=== PATIENT | male | born 1965 | race African-American/Black ===

== ENCOUNTER 2024-09-30 08:27 | Outpatient (AMB) | payer OTHER, SELFPAY ==
--- NOTE | 2024-09-30 08:34 | A.OFFVIS_ITS ---
Vital Signs 09/30/24 08:48 Height 6 ft 5 in Weight 276 lb BMI 32.7 Intake Visit Reasons: Left knee pain and giving way Intake Note: Stephane is a 58 year old male who presents with complaints of progressively worsening left knee pain and giving way. The patient did undergo right total knee replacement surgery [place] [address] Guillen. He reports mild to moderate discomfort in his right knee. He describes his left knee pain as sharp in nature. He did undergo left knee arthroscopic surgery approximately 10 years ago. He got fairly good relief from that surgery initially. He did re-injure his left knee approximately 1 year ago. Since that time his symptoms have gotten worse in spite of continued non operative treatments. He has had injections in the past. The most recent injection gave him minimal relief. He has also done physical therapy which aggravated his pain. He has failed the last 6 weeks of conservative treatment which has included Tylenol, anti- inflammatory medicines and physical therapy exercises. He states that his left knee will give out several times per day. Allergies No Known Allergies Allergy (Verified 09/30/24 08:48) Medication List - Last Reconciled 09/30/24 by Allen Soni MD acetaminophen 1,000 mg PO TID PRN acetaminophen 650 mg PO TID PRN atorvastatin 80 mg PO BEDTIME buprenorphine 10 mcg/hour 1 patch transdermal Q5D buprenorphine 5 mcg/hour 1 patch transdermal Q5D carboxymethylcellulose sodium 0.5% 1 drp ophthalmic (eye) QID cholecalciferol (vitamin D3) 50 mcg PO DAILY cyclobenzaprine 10 mg PO BID empagliflozin 25 mg PO DAILY gabapentin 600 mg PO TID hydrocodone-acetaminophen 5-325 mg 1 tab PO BID PRN insulin aspart U-100 (Novolog FlexPen U-100 Insulin aspart) 27 units subcut TID insulin glargine 46 units subcut BID lidocaine 5% 1 patch topical DAILY lisinopril 5 mg PO DAILY semaglutide 0.5 mg subcut QWEEK [facility] Surgical History (Updated 09/27/24 @ 12:11 by JEANETH Lopez) H/O knee surgery Physical Exam Vital Signs: BMI result Body Mass Index 32.7 Const Other: Well-nourished well-developed very friendly male awake alert and oriented x3 in no acute distress Extrem Other: Bilateral lower extremity examination shows good capillary refill, no skin lesions noted, normal sensation light touch Left knee examination shows a minimal effusion, mild crepitus with range of motion, tenderness along his medial joint line, positive Richard's test, no instability Right knee examination shows that the surgical incision is well healed, no erythema, range of motion from -5 degrees to 85 degrees, his patella tracks well Results Reviewed Results Reviewed: X-rays of the patient's right knee show a total knee arthroplasty in good position with no signs of loosening Standing full weight-bearing x-rays of the patient's left knee show mild diffuse degenerative changes, no acute bony abnormalities Assessment & Plan Assessment & Plan (1) Tear of medial meniscus of left knee: Code(s): S83.242A - Other tear of medial meniscus, current injury, left knee, initial encounter Category: Medical Plan Mr. Rivera presents with progressively worsening left knee pain and mechanical symptoms most likely due to a medial meniscus tear. Thus, I will send the patient for an MRI of his left knee for further evaluation. I will see him back once the MRI is completed to discuss the findings and treatment options. He will contact me prior to that time should his symptoms worsen in any way. I spent 22 minutes in reviewing the patient's records and imaging studies, seeing the patient and documenting in the medical record. Orders: Orders XR knee LT 3V 09/30/24 M25.562 - Pain in left knee MR knee LT wo con 09/30/24 S83.242A - Other tear of medial meniscus, current injury, left knee, initial encounter XR knee RT 3V 09/30/24 M25.561 - Pain in right knee Coding Level of Care Code New Pt Level 3 (42421) Complex EM visit Add On G2211 Diagnoses Tear of medial meniscus of left knee S83.242A
--- OUTSIDE RECORDS SUMMARY | 2024-09-30 08:34 | XMS_ITS | Continuity of Care Document ---
Author Name [facility] Organization [facility] Care Team Providers Care Appeals Board Referee Name Role Phone [facility] Unavailable Unavailable Problems Combined list of problems from Department of Defense and Veterans Affairs facilities. It does not include entries that were removed or entered in error. Problem Status Onset Date Problem Type Date of Resolution Comments Source Diabetes Mellitus Type II or unspecified Inactive 10/06/19 06 Condition 05/13/2017 [place] Allergic Rhinitis ([facility] [id number]) Active Condition [facility] [facility] Bilateral hearing loss Active Condition [place] Bilateral tinnitus Active Condition [place] Cervical radiculopathy Active Condition Sep 11, 2024 Entered By: CHANI RHODES Comment: 12/25/23 MRI [place] Degeneration of lumbar intervertebral disc Active Condition Sep 11, 2024 Entered By: CHANI RHODES Comment: 06/17/23 MRI lumbar spine [place] Depression Active Condition [place] Diabetic neuropathy Active Condition [place] Erectile dysfunction Active Condition [place] Fatty liver Active Condition Sep 11, 2024 Entered By: CHANI RHODES Comment: 03/08/24 US showed steatosis, fibrosis [place] History of surgery Active Condition May 13, 2017 Entered By: MYRNA LEAL Comment: s/p L foot surgery @2011 for collapsed archDe 2023 Entered By: CHANI RHODES Comment: lap terrell 1Dec 2023 Entered By: CHANI RHODES Comment: appendectomyDe 2023 Entered By: CHANI RHODES Comment: right and left knee meniscectomy - service connectedDec 2023 Entered By: CHANI RHODES Comment: right TKA - service connectedDe 2023 Entered By: CHANI RHODES Comment: urethral surgery for obstruction [place] HTN - Hypertension (SCT [id number]) Active Condition [place] Hyperlipidemia ([facility] 09582873) Active Condition [place] [facility] Impotence Active Condition [facility] Long-term current use of opiate analgesic drug Active Condition Sep 11, 2024 Entered By: CHNAI RHODES Comment: consent 11/15/2015[facility] 2023 Entered By: CHANI RHODES Comment: sees pain management [facility] Obesity Active Condition Sep 11 Entered By: CHANI RHODES Comment: 04/19/24 BMI 32 [facility] Osteoarthritis of multiple joints Active Condition Sep 11, 2024 Entered By: CHANI RHODES Comment[facility] Entered By: CHANI RHODES Comment: XR knees 04/27/24 [place] Type 2 diabetes mellitus Active Condition Nov 14, 2022 Entered By: SOM STANFORD Comment: See Diabetic PHARM D Note Dated Nov Entered By: CHANI RHODES Comment: 09/07/24 A1c 8.3 [place] Under care of multiple providers Active Condition Sep 11, 2024 Entered By: CHANI RHODES Comment: community PCP - Dr. Worrell [place] Vitamin D Deficiency ([facility] [id number]) Active Condition [place] : Rt Flank Paiin Inactive Condition 05/13/2017 Dec 07, 2009 Entered By: MARIA E CLAYTON RA Comment: Decreased Urinary Flow [place] Abdominal discomfort Inactive Condition 12/12/2023 [place] Acute diarrhoea Inactive Condition 12/12/2023 [facility] Blurred vision (ICD-9-CM 368.8) Inactive Condition 05/13/2017 [facility] Edema of lower leg Inactive Condition 09/11/2024 [place] Elevated blood pressure reading without diagnosis of hypertension Inactive Condition 05/13/2017 [facility] H: [phone] & C: [phone] Inactive Condition 05/13/2017 [facility] Onychomycosis of toenails Inactive Condition 09/11/2024 [facility] Other symptoms involving abdomen and pelvis Inactive Condition 05/13/2017 May 16, 2011 Entered By: SOM STANFORD Comment: Non-Descript ABD Pain May Entered By: SOM STANFORD Comment: CT, ABD MAY 16: No Acute Patholgy, +Fatty Liver,May 16, 2011 Entered By: SOM STANFORD Comment: +Benign Cysts Both Kidneys, +Colonic Diverticulae [place] Unemployment * Inactive Condition 05/13/2017 [facility] Diagnosis: ICD-10-CM M15.9 Polyosteoarthriti s, unspecified Active Diagnosis [facility] Diagnosis: ICD-10-CM E11.9 Type 2 diabetes mellitus without complications Active Diagnosis [facility] Diagnosis: ICD-10-CM M25.561 Pain in right knee Active Diagnosis [facility] Diagnosis: ICD-10-CM M54.50 Low back pain, unspecified Active Diagnosis [facility] Diagnosis: ICD-10-CM M25.569 Pain in unspecified knee Active Diagnosis [facility] Diagnosis: ICD-10-CM Z71.89 Other specified counseling Active Diagnosis [place] Diagnosis: ICD-10-CM G50.1 Atypical facial pain Active Diagnosis [place] Diagnosis: ICD-10-CM Z46.0 Encounter for fit/adjst of spectacles and contact lenses Active Diagnosis [facility] Diagnosis: ICD-10-CM H34.8110 Central retinal vein occls, right eye, with macular edema Active Diagnosis [facility] Diagnosis: ICD-10-CM M19.91 Primary osteoarthritis, unspecified site Active Diagnosis [facility] Diagnosis: ICD-10-CM R10.9 Unspecified abdominal pain [facility] Diagnosis: ICD-10-CM E78.5 Hyperlipidemia, unspecified Active Diagnosis [place] Diagnosis: ICD-10-CM I10 Essential (primary) hypertension Active Diagnosis [place] Diagnosis: ICD-10-CM M54.51 Vertebrogenic low back pain Active Diagnosis [place] Diagnosis: ICD-10-CM Z71.3 Dietary counseling and surveillance Active Diagnosis [place] Diagnosis: ICD-10-CM R11.0 Nausea Active Diagnosis [place] Medications Combined list of outpatient medications from Department of Defense and Veterans Affairs facilities.Medications provided include 1) outpatient medications from the last 15 months, and 2) patient-reported medications. Medication Details Route Status Patient Instructions Prescription Expires Prescription Number Last Dispense Date Ordering Provider Order Date Order Qty Source ACETAMINOPH EN 325MG TAB TAKE TWO TABLETS BY MOUTH THREE TIMES DAILY NEEDED FOR PAIN ORAL ACTIVE 08/20/2025 [id number] MARCK STANFORD WENCESLAO 2023 200 [place] ACETAMINOPH EN 500MG TAB TAKE TWO TABLETS BY MOUTH THREE TIMES DAILY NEEDED FOR PAIN ORAL ACTIVE 11/28/2024 [id number] VISHNUCA RMEN F 2023 200 [place] AMOXICILLIN TRIHYDRATE 500MG/CLAVU LANATE K 125MG TAB TAKE 1 TABLET BY MOUTH EVERY 12 HOURS WITH FOOD, FOR 10 DAYS ORAL 08/05/2024 [id number] 4 KI EATONKRISTEN LUC 2023 20 [place] ATORVASTATI N CA 80MG TAB TAKE ONE TABLET BY MOUTH AT BEDTIME FOR HIGH CHOLESTE ROL ORAL ACTIVE 11/28/2024 [id number] VISHNUCA RMEN F 2023 90 [place] BUPRENORPHI NE 10MCG/HR PATCH APPLY 1 PATCH TO SKIN EVERY 5 DAYS (REMOVE PATCH BEFORE APPLYING A NEW PATCH) TRANSD ERMAL DISCONT INUED BY PROVIDE R 02/27/2025 [id number] [facility] 2023 6 [facility] BUPRENORPHI NE 15MCG/HR PATCH APPLY 1 PATCH TO SKIN EVERY 5 DAYS (REMOVE PATCH BEFORE APPLYING A NEW PATCH) TRANSD ERMAL ACTIVE 03/27/2025 [id number] 4 [facility] 2023 6 [facility] BUPRENORPHI NE 5MCG/HR PATCH APPLY 1 PATCH TO SKIN EVERY 5 DAYS (REMOVE PATCH BEFORE APPLYING A NEW PATCH) TRANSD ERMAL DISCONT INUED BY PROVIDE R 09/22/2024 [id number] [facility] 2023 6 [facility] CARBOXYMETH YLCELLULOSE NA 0.5% SOLN,OPH INSTILL 1 DROP INTO EACH EYE FOUR TIMES A DAY FOR DRY EYE OPHTHA LMIC ACTIVE 05/01/2025 [id number] 4 CRISTIANO WELSH J 2023 45 [facility] CHOLECALCIF VINH 50MCG (2,000UNIT) TAB TAKE ONE TABLET BY MOUTH ONCE DAILY FOR VITAMIN SUPPLEME NTATION ORAL ACTIVE 12/15/2024 [id number] 4 SARA MARES RMEN F 2023 100 [place] CYCLOBENZAP RINE HCL 10MG TAB TAKE ONE TABLET BY MOUTH TWICE DAILY NEEDED FOR MUSCLE SPASM ORAL DISCONT INUED BY PROVIDE R 08/20/2025 [id number] 4 MARCK STANFORD 2023 60 [place] CYCLOBENZAP RINE HCL 10MG TAB TAKE ONE TABLET BY MOUTH AT BEDTIME NEEDED FOR MUSCLE SPASM ORAL 12/28/2023 [id number] 4 SARA MARES RMEN F 2023 30 [place] EMPAGLIFLOZ IN 25MG TAB TAKE ONE TABLET BY MOUTH ONCE DAILY ORAL ACTIVE 09/07/2025 [id number] Eli BECKBELA A 2023 30 [place] EMPAGLIFLOZ IN 25MG TAB TAKE ONE TABLET BY MOUTH ONCE DAILY ORAL DISCONT INUED 10/17/2024 [id number] 4 Eli BECKBELA A 2023 90 [place] EMPAGLIFLOZ IN 25MG TAB TAKE ONE TABLET BY MOUTH ONCE DAILY ORAL DISCONT INUED 10/07/2024 [id number] 4 Eli BECKA A 2023 60 [place] EMPAGLIFLOZ IN 25MG TAB TAKE ONE TABLET BY MOUTH ONCE DAILY ORAL DISCONT INUED 01/11/2024 [id number] 3 Eli BECKA A 2022 60 [place] GABAPENTIN 100MG CAP TAKE ONE CAPSULE BY MOUTH THREE TIMES A DAY FOR 7 DAYS, THEN TAKE TWO CAPSULES THREE TIMES A DAY FOR 7 DAYS, THEN TAKE THREE CAPSULES THREE TIMES A DAY FOR 16 DAYS ORAL 04/25/2024 [id number] 4 SABA CARL 2023 207 [facility] GABAPENTIN 100MG CAP TAKE ONE CAPSULE BY MOUTH EVERY MORNING AND TAKE TWO CAPSULES AT BEDTIME FOR NERVE PAIN ORAL 03/11/2024 [id number] 4 Gale RHODES 2023 270 [facility] [place] GABAPENTIN 300MG CAP TAKE TWO CAPSULES BY MOUTH THREE TIMES A DAY ORAL ACTIVE 08/28/2025 [id number] 5 [facility]24 540 [facility] GABAPENTIN 300MG CAP TAKE ONE CAPSULE BY MOUTH THREE TIMES A DAY FOR NERVE PAIN ORAL DISCONT INUED 08/13/2025 [id number] 4 [facility]23 270 [facility] GLUCOSE 4GM TAB,CHEW CHEW FOUR TABLETS BY MOUTH NEEDED FOR LOW BLOOD SUGAR ORAL ACTIVE 06/11/2025 [id number] ИРИНА ARAGON 2023 20 [facility] [place] HYDROCODONE 5MG/ACETAMI NOPHEN 325MG TAB TAKE 1 TABLET BY MOUTH TWICE DAILY NEEDED NEXT FILL 10/25 ORAL ACTIVE 10/24/2024 [id number] 4 [facility] 2023 60 [facility] HYDROCODONE 5MG/ACETAMI NOPHEN 325MG TAB TAKE 1 TABLET BY MOUTH TWICE DAILY NEEDED FOR PAIN ORAL 09/26/2024 [id number] 4 [facility] 2023 60 [facility] HYDROCODONE 5MG/ACETAMI NOPHEN 325MG TAB TAKE 1 TABLET BY MOUTH TWICE DAILY FOR PAIN ORAL 06/20/2024 [id number] 4 [facility]23 60 [facility] HYDROCODONE 5MG/ACETAMI NOPHEN 325MG TAB TAKE 1 TABLET BY MOUTH TWICE DAILY FOR PAIN (NEXT FILL 04/19/24) ORAL 04/21/2024 [id number] [facility] 2023 60 [facility] HYDROCODONE 5MG/ACETAMI NOPHEN 325MG TAB TAKE 1 TABLET BY MOUTH TWICE DAILY NEEDED FOR PAIN MAY USE UP TO 3 DAYS PER WEEK (NEXT FILL 03/09/24) ORAL 03/11/2024 [id number] [facility] 2023 24 [facility] INSULIN,ASP ART,HUMAN (EQV-NOVOLO G) 100 UNIT/ML,FLE XPEN,3ML INJECT 27 UNITS SUBCUTAN EOUSLY THREE TIMES A DAY BEFORE MEALS INJECT 15 MINUTES BEFORE MEALS IF MEAL SKIPPED SKIP THE DOSE SUBCUT ANEOUS ACTIVE 06/11/2025 [id number] 4 ИРИНА ARAGON 2023 10 [place] INSULIN,ASP ART,HUMAN (EQV-NOVOLO G) 100 UNIT/ML,FLE XPEN,3ML INJECT 25 UNITS SUBCUTAN EOUSLY THREE TIMES A DAY INJECT 15 MINUTES BEFORE MEALS IF MEAL SKIPPED SKIP THE DOSE SUBCUT ANEOUS DISCONT INUED (EDIT) 02/26/2025 [id number] Eli BECK 2023 [place] INSULIN,ASP ART,HUMAN (EQV-NOVOLO G) 100 UNIT/ML,FLE XPEN,3ML INJECT 25 UNITS SUBCUTAN EOUSLY BEFORE BREAKFAS T AND INJECT 25 UNITS BEFORE LUNCH AND INJECT 25 UNITS BEFORE SUPPER (SKIP DOSE IF MEAL IS SKIPPED) SUBCUT ANEOUS 01/11/2024 [id number] Eli BECK 2022 20 [place] INSULIN,GLA RGINE-YFGN 100UNIT/ML INJ PEN,3ML INJECT 46 UNITS SUBCUTAN EOUSLY TWICE DAILY SUBCUT ANEOUS ACTIVE 02/26/2025 [id number] Eli BECK 2023 10 [place] INSULIN,GLA RGINE-YFGN 100UNIT/ML INJ PEN,3ML INJECT 40 UNITS SUBCUTAN EOUSLY TWICE DAILY FOR DIABETES SUBCUT ANEOUS 02/14/2024 [id number] Eli BECK A 2022 20 [place] LIDOCAINE 5% PATCH APPLY 1 PATCH TOPICALL Y ONCE DAILY NEEDED (LEAVE PATCH ON FOR 12 HOURS, THEN REMOVE PATCH) TOPICA L ACTIVE 11/28/2024 [id number] SARA MARES RMEN F 2023 30 [place] LISINOPRIL 5MG TAB TAKE ONE TABLET BY MOUTH ONCE DAILY TO CONTROL BLOOD PRESSURE ORAL ACTIVE 06/04/2025 [id number] SARA MARES RMEN F 2023 90 [place] LISINOPRIL 5MG TAB TAKE ONE TABLET BY MOUTH ONCE DAILY TO CONTROL BLOOD PRESSURE ORAL DISCONT INUED 05/21/2024 [id number] 4 SARA MARES RMEN F 2022 90 [place] METFORMIN HCL 750MG 24HR TAB,SA TAKE ONE TABLET BY MOUTH ONCE DAILY ORAL ACTIVE 02/26/2025 [id number] Eli BECK A 2023 90 [place] METFORMIN HCL 750MG 24HR TAB,SA TAKE ONE TABLET BY MOUTH ONCE DAILY ORAL 02/14/2024 [id number] Eli BECKA A 2022 90 [place] SEMAGLUTIDE 0.25MG/0.37 5ML INJ,SOLN,PE N,3ML INJECT 0.5MG SUBCUTAN EOUSLY ONCE A WEEK FOR TYPE 2 DIABETES MELLITUS SUBCUT ANEOUS ACTIVE 08/06/2025 [id number] 4 Eli BECKA A 2023 1 [place] SEMAGLUTIDE 0.25MG/0.37 5ML INJ,SOLN,PE N,3ML INJECT 0.5MG SUBCUTAN EOUSLY ONCE A WEEK FOR TYPE 2 DIABETES MELLITUS SUBCUT ANEOUS DISCONT INUED 04/15/2025 [id number] Eli BECKA A 2023 1 [place] SEMAGLUTIDE 0.25MG/0.37 5ML INJ,SOLN,PE N,3ML INJECT 0.5MG SUBCUTAN EOUSLY ONCE A WEEK FOR TYPE 2 DIABETES MELLITUS SUBCUT ANEOUS DISCONT INUED BY PROVIDE R 11/04/2024 [id number] Eli BECK JANY A 2023 1 [place] SEMAGLUTIDE 0.25MG/0.37 5ML INJ,SOLN,PE N,3ML INJECT 0.25MG SUBCUTAN EOUSLY ONCE A WEEK FOR 2 WEEKS, THEN INJECT 0.5MG ONCE A WEEK SUBCUT ANEOUS DISCONT INUED BY PROVIDE R 11/16/2023 [id number] Eli BECK 2023 1 [place] SEMAGLUTIDE 1MG/0.75ML INJ,SOLN,PE N,3ML INJECT 1MG SUBCUTAN EOUSLY ONCE A WEEK FOR TYPE 2 DIABETES MELLITUS SUBCUT ANEOUS DISCONT INUED BY PROVIDE R 11/27/2024 [id number] Eli BECK 2023 1 [place] SEMAGLUTIDE 1MG/0.75ML INJ,SOLN,PE N,3ML INJECT 1MG SUBCUTAN EOUSLY ONCE A WEEK SUBCUT ANEOUS DISCONT INUED 03/28/2024 [id number] Eli BECKFrancisco J Francisco J 2022 2 [place] Immunizations Combined list of available immunizations from the Department of Defense and Veterans Affairs facilities. 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 INFLUENZA, SPLIT VIRUS, TRIVALENT, PF 2023 BIANCA COELLO LEFT DELTO ID [id number] 140 complet ed [place] INFLUENZA, INJECTABLE, QUADRIVALENT, PRESERVATIVE FREE 2021 BAUDILIO CONROY RIGHT DELTO ID [id number] 150 complet ed [place] ZOSTER RECOMBINANT 2 2021 BAUDILIO CONROY LEFT DELTO ID [id number] 187 complet ed [place] COVID-19 (MODERNA), MRNA, LNP-S, PF, 100 MCG/0.5ML DOSE OR 50 MCG/0.25ML DOSE 1 2021 207 complet ed MOD; [id number]; 2 [place] ZOSTER RECOMBINANT 1 2021 187 complet ed [place] INFLUENZA, INJECTABLE, QUADRIVALENT, PRESERVATIVE FREE 2020 150 complet ed Partner:Meka AVELAR.Admin istered by:[facility]. ([id number]).[facility]:[phone] 2.Address :[address] [place] [phone] [id number] [facility] INFLUENZA, INJECTABLE, QUADRIVALENT, PRESERVATIVE FREE 2019 150 complet ed [place] INFLUENZA, INJECTABLE, QUADRIVALENT, PRESERVATIVE FREE 2018 150 complet ed Site: Left Deltoid [place] INFLUENZA, SEASONAL, INJECTABLE 2017 141 complet ed Site: Left Deltoid [place] INFLUENZA, SEASONAL, INJECTABLE 2017 141 complet ed Site: Left Deltoid [place] INFLUENZA, HIGH DOSE SEASONAL 2015 135 complet ed [facility] FLU,3 YRS (HISTORICAL) 2015 88 complet ed [place] FLU,3 YRS (HISTORICAL) 2015 88 complet ed [facility] FLU,3 YRS (HISTORICAL) 2015 88 complet ed [place] PNEUMOCOCCAL POLYSACCHARID E PPV23 2015 33 complet ed [place] FLU,3 YRS (HISTORICAL) 2013 88 complet ed [place] FLU,3 YRS (HISTORICAL) 2012 88 complet ed Site: Left Deltoid [place] FLU,3 YRS (HISTORICAL) 2011 88 complet ed Site: Left Deltoid [place] FLU,3 YRS (HISTORICAL) 2011 88 complet ed [facility] FLU,3 YRS (HISTORICAL) 2010 88 complet ed [facility] FLU,3 YRS (HISTORICAL) 2010 88 complet ed Pt. got his vaccine at his employer. [facility] DTAP, UNSPECIFIED FORMULATION 2010 107 complet ed Site: Right Deltoid [place] FLU,3 YRS (HISTORICAL) 2009 88 complet ed had flu approx date [facility] Results Combined list of recent chemistry, hematology and other laboratory results from Department of Defense and Veterans Affairs, ranging from 15 months to all on record, depending upon the facility. Order Name Results Value Reference Range Date Interpretation Specimen Comments Source TSH THYROTROPI N [UNITS/VOL UME] IN SERUM OR PLASMA 1.86 u[IU]/mL 0.35 - 5.00 09/07 Specimen Type: SERUM No comment entered. Ordering Provider: ROLDAN RHODES Report Released Date/Time: Sep 06, 2024 01:20 PM Reporting Lab: [facility] [address] [facility] [address] Performing Lab: [address] [address] [place] PSA PROSTATE SPECIFIC AG [MASS/VOLU ME] IN SERUM OR PLASMA 0.33 ng/mL 0.00 - 4.00 09/07 Specimen Type: SERUM No comment entered. Ordering Provider: ROLDAN RHODES Report Released Date/Time: Sep 06, 2024 01:20 PM Reporting Lab: [facility] [address] [facility] [address] Performing Lab: [address] [address] [place] LIPID PANEL FASTING CHOLESTERO L [MASS/VOLU ME] IN SERUM OR PLASMA 131 mg/dL 09/07 Specimen Type: SERUM Comment: Hemolysis present analysis cannot be performed. Hemolysis present may falsly elevate Potassium Total and Direct Bili, Iron, AST, %Fe. Ordering Provider: ROLDAN RHODES Report Released Date/Time: Sep 06, 2024 01:20 PM Reporting Lab: [address] [address] Performing Lab: [address] [address] [place] LIPID PANEL FASTING TRIGLYCERI DE [MASS/VOLU ME] IN SERUM OR PLASMA 219 mg/dL 0 - 150 09/07 H Specimen Type: SERUM Comment: Hemolysis present analysis cannot be performed. Hemolysis present may falsly elevate Potassium Total and Direct Bili, Iron, AST, %Fe. Ordering Provider: ROLDAN RHODES Report Released Date/Time: Sep 06, 2024 01:20 PM Reporting Lab: [address] [address] Performing Lab: [address] [address] [place] LIPID PANEL FASTING CHOLESTERO L IN LDL [MASS/VOLU ME] IN SERUM OR PLASMA BY CALCULATIO N 55 mg/dL 0 - 129 09/07 Specimen Type: SERUM Comment: Hemolysis present analysis cannot be performed. Hemolysis present may falsly elevate Potassium Total and Direct Bili, Iron, AST, %Fe. Ordering Provider: ROLDAN RHODES Report Released Date/Time: Sep 06, 2024 01:20 PM Reporting Lab: [address] [address] Performing Lab: [address] [address] [place] LIPID PANEL FASTING CHOLESTERO L.TOTAL/CH OLESTEROL IN HDL [MASS RATIO] IN SERUM OR PLASMA 4.1 09/07 Specimen Type: SERUM Comment: Hemolysis present analysis cannot be performed. Hemolysis present may falsly elevate Potassium Total and Direct Bili, Iron, AST, %Fe. Ordering Provider: ROLDAN RHODES Report Released Date/Time: Sep 06, 2024 01:20 PM Reporting Lab: [address] [address] Performing Lab: [address] [address] [place] LIPID PANEL FASTING CHOLESTERO L IN HDL [MASS/VOLU ME] IN SERUM OR PLASMA 32 mg/dL 40 - 60 09/07 L Specimen Type: SERUM Comment: Hemolysis present analysis cannot be performed. Hemolysis present may falsly elevate Potassium Total and Direct Bili, Iron, AST, %Fe. Ordering Provider: ROLDAN RHODES Report Released Date/Time: Sep 06, 2024 01:20 PM Reporting Lab: [address] [address] Performing Lab: [address] [address] [employer] [place] HEMOGLOB IN A1C PANEL HEMOGLOBIN A1C/HEMOGL OBIN.TOTAL IN BLOOD BY HPLC 8.1 4.0 - 5.6 09/07 H Specimen Type: BLOOD Comment: Values obtained from A1C measurement s can vary. For atypical A1C assays, a reported value of 7.0 could actually be between 6.72 and 7.28 if measured by a reference method. A reported value of 9.0 could actually be between 8.73 and 9.27. Ref: http://www. ngsp.org/[place] Pdata.asp Ordering Provider: ROLDAN RHODES Report Released Date/Time: Sep 06, 2024 01:20 PM Reporting Lab: [address] [address] Performing Lab: [address] [address] [employer] [facility] BASIC METABOLI C PANEL (fasting ) UREA NITROGEN [MASS/VOLU ME] IN SERUM OR PLASMA 15 mg/dL 7 - 25 09/07 Specimen Type: SERUM Comment: Hemolysis present analysis cannot be performed. Hemolysis present may falsly elevate Potassium Total and Direct Bili, Iron, AST, %Fe. Ordering Provider: ROLDAN RHODES Report Released Date/Time: Sep 06, 2024 01:20 PM Reporting Lab: [address] [address] Performing Lab: [address] [address] [employer] [facility] BASIC METABOLI C PANEL (fasting ) GLUCOSE [MASS/VOLU ME] IN SERUM OR PLASMA 176 mg/dL 65 - 100 09/07 H Specimen Type: SERUM Comment: Hemolysis present analysis cannot be performed. Hemolysis present may falsly elevate Potassium Total and Direct Bili, Iron, AST, %Fe. Ordering Provider: ROLDAN RHODES Report Released Date/Time: Sep 06, 2024 01:20 PM Reporting Lab: [facility] [address] [facility] [address] Performing Lab: [facility] [address] [address] [place] BASIC METABOLI C PANEL (fasting ) SODIUM [MOLES/VOL UME] IN SERUM OR PLASMA 139 mmol/L 135 - 145 09/07 Specimen Type: SERUM Comment: Hemolysis present analysis cannot be performed. Hemolysis present may falsly elevate Potassium Total and Direct Bili, Iron, AST, %Fe. Ordering Provider: ROLDAN RHODES Report Released Date/Time: Sep 06, 2024 01:20 PM Reporting Lab: [facility] [address] [address] Performing Lab: [facility] [address] [address] [place] BASIC METABOLI C PANEL (fasting ) POTASSIUM [MOLES/VOL UME] IN SERUM OR PLASMA 4.4 mmol/L 3.5 - 5.0 09/07 Specimen Type: SERUM Comment: Hemolysis present analysis cannot be performed. Hemolysis present may falsly elevate Potassium Total and Direct Bili, Iron, AST, %Fe. Ordering Provider: ROLDAN RHODES Report Released Date/Time: Sep 06, 2024 01:20 PM Reporting Lab: [address] [address] Performing Lab: [address] [address] [place] BASIC METABOLI C PANEL (fasting ) CHLORIDE [MOLES/VOL UME] IN SERUM OR PLASMA 104 mmol/L 100 - 110 09/07 Specimen Type: SERUM Comment: Hemolysis present analysis cannot be performed. Hemolysis present may falsly elevate Potassium Total and Direct Bili, Iron, AST, %Fe. Ordering Provider: ROLDAN RHODES Report Released Date/Time: Sep 06, 2024 01:20 PM Reporting Lab: [address] [address] Performing Lab: [facility] [address] [address] [employer] [facility] BASIC METABOLI C PANEL (fasting ) CARBON DIOXIDE, TOTAL [MOLES/VOL UME] IN SERUM OR PLASMA 23 meq/L 20 - 30 09/07 Specimen Type: SERUM Comment: Hemolysis present analysis cannot be performed. Hemolysis present may falsly elevate Potassium Total and Direct Bili, Iron, AST, %Fe. Ordering Provider: ROLDAN RHODES Report Released Date/Time: Sep 06, 2024 01:20 PM Reporting Lab: [address] [address] Performing Lab: [address] [address] [employer] [facility] BASIC METABOLI C PANEL (fasting ) CREATININE [MASS/VOLU ME] IN SERUM OR PLASMA 1.15 mg/dL 0.50 - 1.40 09/07 Specimen Type: SERUM Comment: Hemolysis present analysis cannot be performed. Hemolysis present may falsly elevate Potassium Total and Direct Bili, Iron, AST, %Fe. Ordering Provider: ROLDAN RHODES Report Released Date/Time: Sep 06, 2024 01:20 PM Reporting Lab: [address] [id number] Performing Lab: [address] [address] [employer] [facility] BASIC METABOLI C PANEL (fasting ) GLOMERULAR FILTRATION RATE/1.73 SQ M.PREDICTE D [VOLUME RATE/AREA] IN SERUM, PLASMA OR BLOOD BY CREATININE -BASED FORMULA (CKD-EPI 2020) 73 mL/min 60 09/07 Specimen Type: SERUM Comment: Hemolysis present analysis cannot be performed. Hemolysis present may falsly elevate Potassium Total and Direct Bili, Iron, AST, %Fe. Ordering Provider: ROLDAN RHODES Report Released Date/Time: Sep 06, 2024 01:20 PM Reporting Lab: [address] [address] Performing Lab: [address] [address] [employer] [facility] LIVER FUNCTION PROTEIN [MASS/VOLU ME] IN SERUM OR PLASMA 7.5 g/dL 6.0 - 8.3 09/07 Specimen Type: SERUM Comment: Hemolysis present analysis cannot be performed. Hemolysis present may falsly elevate Potassium Total and Direct Bili, Iron, AST, %Fe. Ordering Provider: ROLDAN RHODES Report Released Date/Time: Sep 06, 2024 01:20 PM Reporting Lab: [address] [address] Performing Lab: [address] [address] [facility] LIVER FUNCTION ALBUMIN [MASS/VOLU ME] IN SERUM OR PLASMA 3.9 g/dL 3.5 - 5.0 09/07 Specimen Type: SERUM Comment: Hemolysis present analysis cannot be performed. Hemolysis present may falsly elevate Potassium Total and Direct Bili, Iron, AST, %Fe. Ordering Provider: ROLDAN RHODES Report Released Date/Time: Sep 06, 2024 01:20 PM Reporting Lab: [address] [address] Performing Lab: [address] [address] [facility] LIVER FUNCTION ALKALINE PHOSPHATAS E [ENZYMATIC ACTIVITY/V OLUME] IN SERUM OR PLASMA 80 U/L 40 - 150 09/07 Specimen Type: SERUM Comment: Hemolysis present analysis cannot be performed. Hemolysis present may falsly elevate Potassium Total and Direct Bili, Iron, AST, %Fe. Ordering Provider: ROLDAN RHODES Report Released Date/Time: Sep 06, 2024 01:20 PM Reporting Lab: [address] [address] Performing Lab: [address] [address] [facility] LIVER FUNCTION ASPARTATE AMINOTRANS FERASE [ENZYMATIC ACTIVITY/V OLUME] IN SERUM OR PLASMA 34 U/L 5 - 34 09/07 Specimen Type: SERUM Comment: Hemolysis present analysis cannot be performed. Hemolysis present may falsly elevate Potassium Total and Direct Bili, Iron, AST, %Fe. Ordering Provider: ROLDAN RHODES Report Released Date/Time: Sep 06, 2024 01:20 PM Reporting Lab: [address] [address] Performing Lab: [address] [address] [facility] LIVER FUNCTION ALANINE AMINOTRANS FERASE [ENZYMATIC ACTIVITY/V OLUME] IN SERUM OR PLASMA 56 U/L 09/07 H Specimen Type: SERUM Comment: Hemolysis present analysis cannot be performed. Hemolysis present may falsly elevate Potassium Total and Direct Bili, Iron, AST, %Fe. Ordering Provider: ROLDAN RHODES Report Released Date/Time: Sep 06, 2024 01:20 PM Reporting Lab: [address] [address] Performing Lab: [address] [phone] [place], [place] [address] LIVER FUNCTION BILIRUBIN. TOTAL [MASS/VOLU ME] IN SERUM OR PLASMA commentm g/dL 0.2 - 1.2 09/07 Specimen Type: SERUM Comment: Hemolysis present analysis cannot be performed. Hemolysis present may falsly elevate Potassium Total and Direct Bili, Iron, AST, %Fe. Ordering Provider: ROLDAN RHODES Report Released Date/Time: Sep 06, 2024 01:20 PM Reporting Lab: [address] [address] Performing Lab: [address] [address] [facility] BILIRUBIN. DIRECT [MASS/VOLU ME] IN SERUM OR PLASMA commentm g/dL 0 - 0.5 09/07 Specimen Type: SERUM Comment: Hemolysis present analysis cannot be performed. Hemolysis present may falsly elevate Potassium Total and Direct Bili, Iron, AST, %Fe. Ordering Provider: ROLDAN RHODES Report Released Date/Time: Sep 06, 2024 01:20 PM Reporting Lab: [address] [address] Performing Lab: [facility] [address] [facility] [address] [place] MICROALB UMIN CREATINI NE RATIO PANEL MICROALBUM IN/CREATIN INE [MASS RATIO] IN URINE 18.2 mg/g 0 - 29.9 09/07 Specimen Type: URINE No comment entered. Ordering Provider: ROLDAN RHODES Report Released Date/Time: Sep 06, 2024 01:20 PM Reporting Lab: [facility] [address] [address] [facility]: [facility] [address] [address] [place] MICROALB UMIN CREATINI NE RATIO PANEL MICROALBUM IN [MASS/VOLU ME] IN URINE 0.9 mg/dL 09/07 Specimen Type: URINE No comment entered. Ordering Provider: ROLDAN RHODES Report Released Date/Time: Sep 06, 2024 01:20 PM Reporting Lab: [facility] [address] [address] Performing Lab: [facility] [address] [address] [place] MICROALB UMIN CREATINI NE RATIO PANEL CREATININE [MASS/VOLU ME] IN URINE 49.56 mg/dL 09/07 Specimen Type: URINE No comment entered. Ordering Provider: ROLDAN RHODES Report Released Date/Time: Sep 06, 2024 01:20 PM Reporting Lab: [facility] [address] [address] Performing Lab: [facility] [address] [address] [place] URINALYS IS COLOR OF URINE Colorles s 09/07 Specimen Type: URINE Comment: If Glucose = >500 and Ketones are positive, please alert the Physician. Ordering Provider: ROLDAN RHODES Report Released Date/Time: Sep 06, 2024 01:20 PM Reporting Lab: [address] [address] Performing Lab: [address] [address] [place] URINALYS IS APPEARANCE OF URINE Clear 09/07 Specimen Type: URINE Comment: If Glucose = >500 and Ketones are positive, please alert the Physician. Ordering Provider: ROLDAN RHODES Report Released Date/Time: Sep 06, 2024 01:20 PM Reporting Lab: [address] [address] Performing Lab: [address] [address] [place] URINALYS IS GLUCOSE [MASS/VOLU ME] IN URINE >1000mg/ dL 09/07 Specimen Type: URINE Comment: If Glucose = >500 and Ketones are positive, please alert the Physician. Ordering Provider: ROLDAN RHODES Report Released Date/Time: Sep 06, 2024 01:20 PM Reporting Lab: [address] [address] Performing Lab: [address] [address] [place] URINALYS IS KETONES [MASS/VOLU ME] IN URINE BY TEST STRIP NEGATIVE mg/dL 09/07 Specimen Type: URINE Comment: If Glucose = >500 and Ketones are positive, please alert the Physician. Ordering Provider: ROLDAN RHODES Report Released Date/Time: Sep 06, 2024 01:20 PM Reporting Lab: [address] [address] Performing Lab: [address] [address] [place] URINALYS IS ERYTHROCYT ES [PRESENCE] IN URINE SEDIMENT BY LIGHT MICROSCOPY NEGATIVE mg/dL 09/07 Specimen Type: URINE Comment: If Glucose = >500 and Ketones are positive, please alert the Physician. Ordering Provider: ROLDAN RHODES Report Released Date/Time: Sep 06, 2024 01:20 PM Reporting Lab: [facility] [address] [address] Performing Lab: [address] [address] [place] URINALYS IS PROTEIN [MASS/VOLU ME] IN URINE BY TEST STRIP NEGATIVE mg/dL 09/07 Specimen Type: URINE Comment: If Glucose = >500 and Ketones are positive, please alert the Physician. Ordering Provider: ROLDAN RHODES Report Released Date/Time: Sep 06, 2024 01:20 PM Reporting Lab: [address] [address] Performing Lab: [address] [address] [place] URINALYS IS NITRITE [PRESENCE] IN URINE NEGATIVE mg/dL 09/07 Specimen Type: URINE Comment: If Glucose = >500 and Ketones are positive, please alert the Physician. Ordering Provider: ROLDAN RHODES Report Released Date/Time: Sep 06, 2024 01:20 PM Reporting Lab: [address] [address] Performing Lab: [address] [address] [place] URINALYS IS BILIRUBIN. TOTAL [PRESENCE] IN URINE NEGATIVE mg/dL 09/07 Specimen Type: URINE Comment: If Glucose = >500 and Ketones are positive, please alert the Physician. Ordering Provider: ROLDAN RHODES Report Released Date/Time: Sep 06, 2024 01:20 PM Reporting Lab: [address] [address] Performing Lab: [address] [address] [place] URINALYS IS SPECIFIC GRAVITY OF URINE BY REFRACTOME TRY 1.023 1.016 - 1.022 09/07 H Specimen Type: URINE Comment: If Glucose = >500 and Ketones are positive, please alert the Physician. Ordering Provider: ROLDAN RHODES Report Released Date/Time: Sep 06, 2024 01:20 PM Reporting Lab: [address] [address] Performing Lab: [address] [address] [place] URINALYS IS PH OF URINE BY TEST STRIP 6.0 5.0 - 9.0 09/07 Specimen Type: URINE Comment: If Glucose = >500 and Ketones are positive, please alert the Physician. Ordering Provider: ROLDAN RHODES Report Released Date/Time: Sep 06, 2024 01:20 PM Reporting Lab: [address] [address] Performing Lab: [address] [address] [place] URINALYS IS UROBILINOG EN [MASS/VOLU ME] IN URINE BY TEST STRIP Normalmg /dL <2.0 - 2.0 09/07 Specimen Type: URINE Comment: If Glucose = >500 and Ketones are positive, please alert the Physician. Ordering Provider: ROLDAN RHODES Report Released Date/Time: Sep 06, 2024 01:20 PM Reporting Lab: [address] [address] Performing Lab: [address] [address] [place] URINALYS IS LEUKOCYTE ESTERASE [PRESENCE] IN URINE BY TEST STRIP NEGATIVE 09/07 Specimen Type: URINE Comment: If Glucose = >500 and Ketones are positive, please alert the Physician. Ordering Provider: ROLDAN RHODES Report Released Date/Time: Sep 06, 2024 01:20 PM Reporting Lab: [address] [address] Performing Lab: [address] [address] [place] CBC AND DIFF (AUTO) LEUKOCYTES [#/VOLUME] IN BLOOD BY AUTOMATED COUNT 5.45 10*3/uL 4.50 - 11.00 09/07 Specimen Type: BLOOD No comment entered. Ordering Provider: ROLDAN RHODES Report Released Date/Time: Sep 06, 2024 01:20 PM Reporting Lab: [facility] [address] [address] Performing Lab: [facility] [address] [address] [place] CBC AND DIFF (AUTO) ERYTHROCYT ES [#/VOLUME] IN BLOOD BY AUTOMATED COUNT 5.45 10*6/uL 4.23 - 5.66 09/07 Specimen Type: BLOOD No comment entered. Ordering Provider: ROLDAN RHODES Report Released Date/Time: Sep 06, 2024 01:20 PM Reporting Lab: [facility] [address] [address] Performing Lab: [address] [address] [place] CBC AND DIFF (AUTO) HEMOGLOBIN [MASS/VOLU ME] IN BLOOD 16.4 g/dL 12.8 - 17 09/07 Specimen Type: BLOOD No comment entered. Ordering Provider: ROLDAN RHODES Report Released Date/Time: Sep 06, 2024 01:20 PM Reporting Lab: [facility] [address] [address] Performing Lab: [facility] [address] [address] [place] CBC AND DIFF (AUTO) HEMATOCRIT [VOLUME FRACTION] OF BLOOD BY AUTOMATED COUNT 48.6 39.2 - 50.4 09/07 Specimen Type: BLOOD No comment entered. Ordering Provider: ROLDAN RHODES Report Released Date/Time: Sep 06, 2024 01:20 PM Reporting Lab: [facility] [address] [address] Performing Lab: [facility] [address] [address] [place] CBC AND DIFF (AUTO) MCV [ENTITIC VOLUME] BY AUTOMATED COUNT 89.2 fL 82 - 99 09/07 Specimen Type: BLOOD No comment entered. Ordering Provider: ROLDAN RHODES Report Released Date/Time: Sep 06, 2024 01:20 PM Reporting Lab: [facility] [address] [address] Performing Lab: [facility] [address] [address] [place] CBC AND DIFF (AUTO) MCHC [MASS/VOLU ME] BY AUTOMATED COUNT 33.7 g/dL 30.8 - 35.1 09/07 Specimen Type: BLOOD No comment entered. Ordering Provider: ROLDAN RHODES Report Released Date/Time: Sep 06, 2024 01:20 PM Reporting Lab: [facility] [address] [address] Performing Lab: [facility] [address] [address] [place] CBC AND DIFF (AUTO) PLATELETS [#/VOLUME] IN BLOOD BY AUTOMATED COUNT 128 10*3/uL 140 - 360 09/07 L Specimen Type: BLOOD No comment entered. Ordering Provider: ROLDAN RHODES Report Released Date/Time: Sep 06, 2024 01:20 PM Reporting Lab: [facility] [address] [address] Performing Lab: [facility] [address] [address] [place] CBC AND DIFF (AUTO) ERYTHROCYT E DISTRIBUTI ON WIDTH [RATIO] BY AUTOMATED COUNT 12.4 12.0 - 16.0 09/07 Specimen Type: BLOOD No comment entered. Ordering Provider: ROLDAN RHODES Report Released Date/Time: Sep 06, 2024 01:20 PM Reporting Lab: [facility] [address] [address] Performing Lab: [facility] [address] [place] CBC AND DIFF (AUTO) MONOCYTES [#/VOLUME] IN BLOOD BY AUTOMATED COUNT 0.57 10*3/uL 0.30 - 1.10 09/07 Specimen Type: BLOOD No comment entered. Ordering Provider: ROLDAN RHODES Report Released Date/Time: Sep 06, 2024 01:20 PM Reporting Lab: [facility] [place] [address] [address] Performing Lab: [facility] [place] [address] [address] [place] CBC AND DIFF (AUTO) MCH [ENTITIC MASS] BY AUTOMATED COUNT 30.1 pg 26.2 - 32.6 09/07 Specimen Type: BLOOD No comment entered. Ordering Provider: ROLDAN RHODES Report Released Date/Time: Sep 06, 2024 01:20 PM Reporting Lab: [facility] [place] [address] [address] Performing Lab: [facility] [address] [address] [place] CBC AND DIFF (AUTO) NEUTROPHIL S/100 LEUKOCYTES IN BLOOD BY AUTOMATED COUNT 48.8 43.7 - 75.8 09/07 Specimen Type: BLOOD No comment entered. Ordering Provider: ROLDAN RHODES Report Released Date/Time: Sep 06, 2024 01:20 PM Reporting Lab: [facility] [place] [address] [address] Performing Lab: [facility] [place] [address] [address] [place] CBC AND DIFF (AUTO) LYMPHOCYTE S/100 LEUKOCYTES IN BLOOD BY AUTOMATED COUNT 38.3 14.0 - 42.3 09/07 Specimen Type: BLOOD No comment entered. Ordering Provider: ROLDAN RHODES Report Released Date/Time: Sep 06, 2024 01:20 PM Reporting Lab: [facility] [place] [address] [address] Performing Lab: [facility] [place] [address] [address] [place] CBC AND DIFF (AUTO) MONOCYTES/ 100 LEUKOCYTES IN BLOOD BY AUTOMATED COUNT 10.5 5.1 - 13.7 09/07 Specimen Type: BLOOD No comment entered. Ordering Provider: ROLDAN RHODES Report Released Date/Time: Sep 06, 2024 01:20 PM Reporting Lab: [facility] [address] [address] Performing Lab: [facility] [address] [address] [place] CBC AND DIFF (AUTO) EOSINOPHIL S/100 LEUKOCYTES IN BLOOD BY AUTOMATED COUNT 1.3 0.4 - 6.8 09/07 Specimen Type: BLOOD No comment entered. Ordering Provider: ROLDAN RHODES Report Released Date/Time: Sep 06, 2024 01:20 PM Reporting Lab: [facility] [address] [address] Performing Lab: [facility] [address] [address] [place] CBC AND DIFF (AUTO) BASOPHILS/ 100 LEUKOCYTES IN BLOOD BY AUTOMATED COUNT 0.4 0.1 - 2.0 09/07 Specimen Type: BLOOD No comment entered. Ordering Provider: ROLDAN RHODES Report Released Date/Time: Sep 06, 2024 01:20 PM Reporting Lab: [facility] [address] [address] Performing Lab: [facility] [address] [address] [place] CBC AND DIFF (AUTO) NEUTROPHIL S [#/VOLUME] IN BLOOD BY AUTOMATED COUNT 2.66 10*3/uL 2.20 - 7.60 09/07 Specimen Type: BLOOD No comment entered. Ordering Provider: RLODAN RHODES Report Released Date/Time: Sep 06, 2024 01:20 PM Reporting Lab: [facility] [address] [address] Performing Lab: [facility] [address] [address] [place] CBC AND DIFF (AUTO) LYMPHOCYTE S [#/VOLUME] IN BLOOD BY AUTOMATED COUNT 2.09 10*3/uL 1.00 - 3.20 09/07 Specimen Type: BLOOD No comment entered. Ordering Provider: ROLDAN RHODES Report Released Date/Time: Sep 06, 2024 01:20 PM Reporting Lab: [facility] [address] [address] Performing Lab: [facility] [address] [address] [place] CBC AND DIFF (AUTO) EOSINOPHIL S [#/VOLUME] IN BLOOD BY AUTOMATED COUNT 0.07 10*3/uL 0.03 - 0.44 09/07 Specimen Type: BLOOD No comment entered. Ordering Provider: ROLDAN RHODES Report Released Date/Time: Sep 06, 2024 01:20 PM Reporting Lab: [facility] [address] [address] Performing Lab: [facility] [address] [address] [place] CBC AND DIFF (AUTO) BASOPHILS [#/VOLUME] IN BLOOD BY AUTOMATED COUNT 0.02 10*3/uL 0.01 - 0.13 09/07 Specimen Type: BLOOD No comment entered. Ordering Provider: ROLDAN RHODES Report Released Date/Time: Sep 06, 2024 01:20 PM Reporting Lab: [facility] [address] [address] Performing Lab: [facility] [address] [address] [place] CBC AND DIFF (AUTO) IMMATURE GRANULOCYT ES/100 LEUKOCYTES IN BLOOD BY AUTOMATED COUNT 0.7 0.0 - 0.7 09/07 Specimen Type: BLOOD No comment entered. Ordering Provider: ROLDAN RHODES Report Released Date/Time: Sep 06, 2024 01:20 PM Reporting Lab: [facility] [address] [address] Performing Lab: [facility] [address] [address] [place] CBC AND DIFF (AUTO) IMMATURE GRANULOCYT ES [#/VOLUME] IN BLOOD 0.04 10*3/uL 0.00 - 0.06 09/07 Specimen Type: BLOOD No comment entered. Ordering Provider: ROLDAN RHODES Report Released Date/Time: Sep 06, 2024 01:20 PM Reporting Lab: [address] [address] Performing Lab: [address] [address] [place] CBC AND DIFF (AUTO) NRBC % 0.0 0.0 - 0.0 09/07 Specimen Type: BLOOD No comment entered. Ordering Provider: ROLDAN RHODES Report Released Date/Time: Sep 06, 2024 01:20 PM Reporting Lab: [address] [address] Performing Lab: [address] [address] [place] CBC AND DIFF (AUTO) NRBC, ABS 0.00 10*3/uL 0.00 - 0.00 09/07 Specimen Type: BLOOD No comment entered. Ordering Provider: ROLDAN RHODES Report Released Date/Time: Sep 06, 2024 01:20 PM Reporting Lab: [address] [address] Performing Lab: [address] [address] [place] LIPID PANEL FASTING CHOLESTERO L [MASS/VOLU ME] IN SERUM OR PLASMA 126 mg/dL 03/08 Specimen Type: SERUM No comment entered. Ordering Provider: SAE MARES Report Released Date/Time: Nov 28, 2023 09:56 AM Reporting Lab: [address] [address] Performing Lab: [address] [address] [place] LIPID PANEL FASTING TRIGLYCERI DE [MASS/VOLU ME] IN SERUM OR PLASMA 197 mg/dL 0 - 150 06/03 /2024 H Specimen Type: SERUM No comment entered. Ordering Provider: SAE MARES Report Released Date/Time: Nov 28, 2023 09:56 AM Reporting Lab: [facility] [address] Performing Lab: [facility] [address] [address] [place] LIPID PANEL FASTING CHOLESTERO L IN LDL [MASS/VOLU ME] IN SERUM OR PLASMA BY CALCZAHRA N 57 mg/dL 0 - 129 03/08 Specimen Type: SERUM No comment entered. Ordering Provider: SAE MARES Report Released Date/Time: Nov 28, 2023 09:56 AM Reporting Lab: [facility] [address] Performing Lab: [facility] [address] [place] LIPID PANEL FASTING CHOLESTERO L.TOTAL/CH OLESTEROL IN HDL [MASS RATIO] IN SERUM OR PLASMA 4.2 03/08 Specimen Type: SERUM No comment entered. Ordering Provider: SAE MARES Report Released Date/Time: Nov 28, 2023 09:56 AM Reporting Lab: [facility] [address] [address] Performing Lab: [facility] [address] [place] LIPID PANEL FASTING CHOLESTERO L IN HDL [MASS/VOLU ME] IN SERUM OR PLASMA 30 mg/dL 40 - 60 03/08 L Specimen Type: SERUM No comment entered. Ordering Provider: SAE MARES Report Released Date/Time: Nov 28, 2023 09:56 AM Reporting Lab: [facility] [address] Performing Lab: [facility] [address] [place] Vital Signs Combined list of inpatient and outpatient Vital Signs from Department of Defense and Veterans Affairs, ranging from 12 months to all on record, depending upon the facility. Vital Sign Value Date Comments Source SYSTOLIC BLOOD PRESSURE 139 09/16/2024 08:36:44 [place] DIASTOLIC BLOOD PRESSURE 86 09/16/2024 08:36:44 [place] PULSE OXIMETRY 95 09/16/2024 08:36:44 [place] WEIGHT 274 09/16/2024 08:36:44 [place] BMI 33kg/m2 09/16/2024 08:36:44 [place] HEIGHT 77 09/16/2024 08:36:44 [place] TEMPERATURE 97.9 09/16/2024 08:36:44 [place] PULSE 91 09/16/2024 08:36:44 [place] RESPIRATION 19 09/16/2024 08:36:44 [place] SYSTOLIC BLOOD PRESSURE 147 08/19/2024 09:25:36 [place] DIASTOLIC BLOOD PRESSURE 92 08/19/2024 09:25:36 [place] PULSE OXIMETRY 97 08/19/2024 09:25:36 [place] PAIN 9 08/19/2024 09:25:36 [place] TEMPERATURE 97.5 08/19/2024 09:25:36 [place] PULSE 75 08/19/2024 09:25:36 [place] RESPIRATION 18 08/19/2024 09:25:36 [place] SYSTOLIC BLOOD PRESSURE 170 07/06/2024 08:48:14 [place] DIASTOLIC BLOOD PRESSURE 98 07/06/2024 08:48:14 [place] PULSE OXIMETRY 07 07/06/2024 08:48:14 [place] PAIN 10 07/06/2024 08:48:14 [place] TEMPERATURE 98.1 07/06/2024 08:48:14 [place] PULSE 65 07/06/2024 08:48:14 [place] RESPIRATION 20 07/06/2024 08:48:14 [place] SYSTOLIC BLOOD PRESSURE 125 04/19/2024 15:04:06 [place] DIASTOLIC BLOOD PRESSURE 79 04/19/2024 15:04:06 [place] PULSE OXIMETRY 94 04/19/2024 15:04:06 [place] WEIGHT 273 04/19/2024 15:04:06 [place] BMI 32kg/m2 04/19/2024 15:04:06 [place] PULSE 90 04/19/2024 15:04:06 [facility] SYSTOLIC BLOOD PRESSURE 146 03/08/2024 09:14:37 [place] DIASTOLIC BLOOD PRESSURE 97 03/08/2024 09:14:37 [place] PULSE OXIMETRY 96 03/08/2024 09:14:37 [place] WEIGHT 272 03/08/2024 09:14:37 [place] BMI 32kg/m2 03/08/2024 09:14:37 [place] PULSE 92 03/08/2024 09:14:37 [place] Encounters Combined list of: 1) Encounters from Department of Veterans Affairs facilities going back up to thelast 18 months. 2) Encounters from the Department of [facility] facilities going back up to 280 months. Location Location Details Encounter Type Encounter Number Reason For Visit Attending Provider ADM Date DC Date Status Disposition Source [facility] [place] [facility] Outpatient Encounter [id number] 04/01 [place] [facility] [place] [facility] [place] [facility] Outpatient Encounter [id number] 04/11 [facility] [place] [facility] Outpatient Encounter [id number] 04/15 [place] [facility] [place] [facility] EYE EXAM&TX ESTAB PT 1/>VST [id number] Diagnos is: ICD-10- CM H34.811 0 Central retinal vein occls, right eye, with macular edema<b r/> KELLEY WELSH Y J 04/15 [place] [facility] [place] [facility] FIT SPECTACLES MULTIFOCAL [id number] Diagnos is: ICD-10- CM Z46.0 Encount er for fit/adj st of spectac les and contact lenses< br/> YUKI FIGUEROA 04/15 [facility] [place] [facility] Out[facility] Encounter [id number] 04/23 [facility] [place] En[facility] [id number] 04/23 [facility] [place] [place] OFF/OP EST FEBRUARY X REQ PHY/QHP [id number] Diagnos is: ICD-10- CM R10.9 Unspeci fied abdomin al pain
OUMOU,ER IC K 04/23 [place] [facility] En[facility] [id number] 04/23 [facility] [id number] 04/23 [facility] [id number] 04/23 [facility] En[facility] [id number] 04/23 [facility] [place] [facility] Encounter [id number] 04/30 [facility] En[facility] [id number] 05/06 [facility] Encounter [id number] 05/07 [facility] QNHP OL DIG ASSMT&MGMT 5-10 [id number] Diagnos is: ICD-10- CM E11.9 Type 2 diabete s mellitu s without complic ations< br/> LUISITO JAUREGUI A 05/08 [facility] Encounter [id number] 05/09 [facility] Encounter [id number] 05/09 [facility] Encounter [id number] 05/21 [facility] [place] OFF[place] O/P EST MOD 30-39 MIN [id number] [id number] Diagnos is: ICD-10- CM M54.50 Low back pain, unspeci fied
KATIE MARES F 05/21 [place] [facility] Out[facility] Encounter [id number] KATIE MARES F 05/21 [facility] Encounter [id number] 05/28 [facility] Encounter [id number] 05/29 [facility] [place] Outpatient Encounter [id number] [id number] 22 05/30 [place] [facility] Out[facility] Encounter [id number] 06/02 [facility] Encounter [id number] 08/28 /2023 [facility] Encounter [id number] 06/05 [facility] [place] OFF/OP EST FEBRUARY X REQ PHY/QHP [id number] 1BY.[id number] Diagnos is: ICD-10- CM R11.0 Nausea< br/> MARYLU COELLO K 06/05 [place] [facility] Out[facility] Encounter [id number] 06/05 [facility] Encounter [id number] 06/12 [facility] Encounter [id number] 06/12 [facility] Encounter [id number] 06/17 [facility] Encounter [id number] 06/25 [facility] Encounter [id number] 06/25 [facility] [place] [id number] [id number] Diagnos is: ICD-10- CM 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<b r/> EDMAR LOW [place] MTMS BY PHARM ADDL 15 MIN [id number] [id number] 49 Diagnos is: ICD-10- CM E11.9 Type 2 diabete s mellitu s without complic ations< br/> LEANDER BECK A 06/26 [place] [facility] Outpatient Encounter [id number] 07/01 [facility] Encounter [id number] 07/04 [facility] Encounter [id number] 07/04 [facility] Encounter [id number] 07/05 [facility] [place] Outpatient Encounter [id number] [id number] 07/18 [facility] [place] O/P EST MOD 30-39 MIN [id number] 1BY.[id number] 33 Diagnos is: ICD-10- CM M54.50 Low back pain, unspeci fied
STELEA,CAR MEN F 07/28 [facility] [place] SELF CARE MNGMENT TRAINING [id number] [id number] Diagnos is: ICD-10- CM M54.51 Vertebr ogenic low back pain
MARKOSHOLA MAIA 08/01 [facility] [place] THERAPEUTI [place] EXERCISES [id number] 1BY.[id number] 34 Diagnos is: ICD-10- CM M54.51 Vertebr ogenic low back pain
DANNEN,HOLA HAEL 08/05 [place] [facility] Outpatient Encounter [id number] 08/08 [facility] [place] THERAPEUT[place] EXERCISES [id number] 1BY.[id number] 54 Diagnos is: ICD-10- CM M54.51 Vertebr ogenic low back pain
IVISSALINA BATSHEVA 08/19 [place] [facility] Outpatient Encounter [id number] 08/22 [facility] [place] Outpatient Encounter [id number] [id number] 08/27 [place] OFF/OP EST FEBRUARY X REQ PHY/QHP [id number] 1BY.[id number] 89 Diagnos is: ICD-10- CM I10 Essenti al (primar y) hyperte nsion<b r/> REBEKAHROSA MARIA AJAY 09/16 [place] [facility] Outpatient Encounter [id number] 09/26 [facility] Encounter [id number] 10/07 [facility] [place] MTMS BY PHARM ADDL 15 MIN [id number] [id number] Diagnos is: ICD-10- CM E11.9 Type 2 diabete s mellitu s without complic ations< br/> LEANDER BECK 10/17 [place] [facility] Outpatient Encounter [id number] 10/21 [facility] [place] PRO PHONE CALL 11-20 MIN [id number] 1BY.[id number] Diagnos is: ICD-10- CM E11.9 Type 2 diabete s mellitu s without complic ations< br/> LEANDER BECK 11/03 [place] PRO PHONE CALL 21-30 MIN [id number] 1BY.[id number] Diagnos is: ICD-10- CM E11.9 Type 2 diabete s mellitu s without complic ations< br/> LEANDER BECK A 11/10 [place] [facility] Outpatient Encounter [id number] 11/13 [facility] [place] MTMS BY PHARM ADDL 15 MIN [id number] [id number] Diagnos is: ICD-10- CM E11.9 Type 2 diabete s mellitu s without complic ations< br/> STELEA,CAR DAKSHA F 11/27 [place] OFF[place] O/P EST MOD 30 MIN [id number] 1BY.[id number] Diagnos is: ICD-10- CM E78.5 Hyperli pidemia , unspeci fied
VISHNU,KATIE CROOKS F 11/28 [place] OFF/OP EST FEBRUARY X REQ PHY/QHP [id number] [id number] Diagnos is: ICD-10- CM M54.50 Low back pain, unspeci fied
OUMOU,ER IC [place] [facility] Outpatient Encounter [id number] 12/11 [facility] [place] OFF[place] O/P EST MOD 30 MIN [id number] 1BY.[id number] Diagnos is: ICD-10- CM M54.50 Low back pain, unspeci fied
RENATO RHODES C 12/11 [place] [facility] Out[facility] Encounter [id number] 12/14 [facility] Encounter [id number] 12/21 [facility] Out[facility] Encounter [id number] 12/24 [facility] Encounter [id number] 12/24 [facility] Out[facility] Encounter [id number] 12/24 [facility] [place] O/P EST MOD 30 MIN [id number] 1BY.[id number] 13 Diagnos is: ICD-10- CM M54.50 Low back pain, unspeci fied
STELEA,CAR MEN F 12/28 [place] [facility] Outpatient Encounter [id number] 12/28 [facility] Out[facility] Encounter [id number] 02/08 [facility] OFF/OP CONSLTJ NEW/EST HI 55 [id number] [id number] Diagnos is: ICD-10- CM M54.50 Low back pain, unspeci fied
KUPFERSCHM ID,SABA B 02/09 [facility] Out[facility] Encounter [id number] 03/04 [facility] [place] OFF[place] O/P EST MOD 30 MIN [id number] 1BY.[id number] Diagnos is: ICD-10- CM R10.9 Unspeci fied abdomin al pain
STELEA,CAR MEN F 03/08 [place] [facility] Outpatient Encounter [id number] 03/10 [facility] Out[facility] Encounter [id number] 03/15 [facility] Out[facility] Encounter [id number] 03/15 [facility] Out[facility] Encounter [id number] 03/19 [facility] OFFICE O/P EST HI 40 MIN [id number] Diagnos is: ICD-10- CM M19.91 Primary osteoar thritis , unspeci fied site
KUPFERSCHM ID,SABA B 03/22 [facility] Out[facility] Encounter [id number] 04/05 [facility] Out[facility] Encounter [id number] 04/06 [facility] OFFICE O/P EST HI 40 MIN [id number] Diagnos is: ICD-10- CM M19.91 Primary osteoar thritis , unspeci fied site
KUPFERSCHM ID,SABA B 04/06 [facility] Out[facility] Encounter [id number] 04/12 [facility] [place] MT[place] BY PHARM ADDL 15 MIN [id number] [id number] Diagnos is: ICD-10- CM E11.9 Type 2 diabete s mellitu s without complic ations< br/> BECK,IZ ABELA A 04/14 [place] [facility] Out[facility] Encounter [id number] 04/14 [facility] Out[facility] Encounter [id number] 04/16 [facility] OFFICE O/P EST MOD 30 MIN [id number] 1BY.[id number] 53 Diagnos is: ICD-10- CM M25.561 Pain in right knee
KATIE MARES F 04/19 [facility] [place] [facility] Out[facility] Encounter [id number] 04/23 [facility] COMPRE OPH EXAM EST PT 1/> [id number] Diagnos is: ICD-10- CM H34.811 0 Central retinal vein occls, right eye, with macular edema<b r/> KELLEY WELSH 04/28 [facility] FIT SPECTACLES MULTIFOCAL [id number] Diagnos is: ICD-10- CM Z46.0 Encount er for fit/adj st of spectac les and contact lenses< br/> KELLEY WELSH 04/28 [facility] Out[facility] Encounter [id number] 04/29 [facility] Out[facility] Encounter [id number] 05/13 [facility] Out[facility] Encounter [id number] 05/20 [facility] OFFICE O/P EST MOD 30 MIN [id number] 1. Diagnos is: ICD-10- CM M25.561 Pain in right knee
KUPFERSCHM SABA PERERA B 05/21 [facility] Out[facility] Encounter [id number]/21 [facility] Out[facility] Encounter [id number] 1.05/25 [facility] Outpatient Encounter [id number] 1.05/31 [facility] [place] MTMS BY PHARM ADDL 15 MIN [id number] Diagnos is: ICD-10- CM E11.9 Type 2 diabete s mellitu s without complic ations< br/> RUDI ARAGON 06/10 [place] [facility] Outpatient Encounter [id number] 06/10 [facility] [place] PT EVAL MOD COMPLEX 30 MIN [id number] 1BY. 57 Diagnos is: ICD-10- CM M25.569 Pain in unspeci fied knee
DANNEN,HOLA HAEL 06/23 [place] THERAPEUT[place] EXERCISES [id number] Diagnos is: ICD-10- CM M25.569 Pain in unspeci fied knee
DANNEN,HOLA HAEL 06/28 [place] [facility] Outpatient Encounter [id number] 07/01 [facility] Out[facility] Encounter [id number]/05 [facility] [place] OFF/OP EST FEBRUARY X REQ PHY/QHP [id number] [id number].[id number] Diagnos is: ICD-10- CM G50.1 Atypica l facial pain
OUMOU,ER IC K 07/06 [place] [facility] Outpatient Encounter [id number] 1.07/06 [facility] [place] THER[place] EXERCISES [id number] Diagnos is: ICD-10- CM M25.569 Pain in unspeci fied knee
HOLA BURROWS HAEL 07/13 [place] [facility] Outpatient Encounter [id number] 1.07/13 [facility] [place] PRO PHONE CALL 21-30 MIN [id number] 1BY. 00 Diagnos is: ICD-10- CM Z71.89 Other specifi ed teen counselor ing<br/ > KENNETH [place] [facility] Outpatient Encounter [id number] 07/28 [facility] Out[facility] Encounter [id number] 1.08/04 [facility] [place] MTMS BY PHARM ADDL 15 MIN [id number] 1BY. 56 Diagnos is: ICD-10- CM E11.9 Type 2 diabete s mellitu s without complic ations< br/> LEANDER BECK 10/31 /2024 [place] [facility] Outpatient Encounter [id number] 1.08/05 [facility] Out[facility] Encounter [id number] 1.08/05 [facility] Outpatient Encounter [id number] 1.08/06 [facility] [place] OFF/OP EST FEBRUARY X REQ PHY/QHP [id number] Diagnos is: ICD-10- CM M54.50 Low back pain, unspeci fied
OUMOU,ER IC K 08/19 [place] [facility] Outpatient Encounter [id number] 1.08/19 [facility] Outpatient [facility]counter [id number] 1.08/20 [facility] [place] THERAPEUT[place] EXERCISES [id number] 1BY. Diagnos is: ICD-10- CM M25.569 Pain in unspeci fied knee
HOLA BURROWS 08/24 [place] [facility] Outpatient Encounter [id number] 1.08/26 [facility] OFFICE O/P EST HI 40 MIN [id number] 1. Diagnos is: ICD-10- CM M54.50 Low back pain, unspeci fied
KUPFERSCHM ID,SABA B 08/27 [facility] Out[facility] Encounter [id number] 09/06 [facility] Out[facility] Encounter [id number] 1.09/06 [facility] QNHP OL DIG ASSMT&MGMT 5-10 [id number] 1. Diagnos is: ICD-10- CM M25.561 Pain in right knee
MIKE GARCIA S 09/08 [facility] [place] OFF/OP EST FEBRUARY X REQ PHY/QHP [id number] [id number].[id number] 05 Diagnos is: ICD-10- CM M15.9 Polyost eoarthr itis, unspeci fied
RENATO RHODES C 09/16 [place] [facility] Outpatient Encounter [id number] 1. RENATO RHODES NDRA C 09/16 [facility] Outpatient Encounter [id number] 1.09/23 [facility] [place] Outpatient Encounter [id number] 09/23 [place] [facility] QNHP OL DIG ASSMT&MGMT 5-10 [id number] 1. Diagnos is: ICD-10- CM E11.9 Type 2 diabete s mellitu s without complic ations< br/> ROME HUNTER 09/23 [facility] OFFICE O/P EST HI 40 MIN [id number] Diagnos is: ICD-10- CM M15.9 Polyost eoarthr itis, unspeci fied
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 Social History Type Response Date Comment Source Tobacco smoking status SCIS [facility] FORMER USER 03/08/2024 [place] History of tobacco use VA-TOBACCO QUIT 15 YRS OR MORE 03/08/2024 [place] History of tobacco use VA-TOBACCO FORMER USER 03/11/2023 [facility] [place] [facility] History of tobacco use VA-TOBACCO FORMER USER 03/27/2022 [place] History of tobacco use VA-TOBACCO FORMER USER 12/27/2020 [facility] [place] [facility] History of tobacco use VA-TOBACCO FORMER USER 12/22/2018 [place] History of tobacco use VA-TOBACCO FORMER USER 03/19/2018 [place] History of tobacco use QUIT TOBACCO USE > 7 YEARS AGO 05/13/2017 quit 24 yrs ago [place] History of tobacco use QUIT TOBACCO USE > 7 YEARS AGO 11/15/2015 States he last smoked 21 years ago [place] History of tobacco use QUIT TOBACCO USE > 7 YEARS AGO 12/07/2009 [place] Plan of Care List of future care activities from Department of Veterans Affairs facilities. Additional future care activities may be listed in the Assessment and Plan section. Date/Time Care Activity Care Activity Detail Facili ty 09/30/2024 AMBULATORY - MEDICINE AMBULATORY - MEDICI NE [facility] [place] [facility] 10/15/2024 AMBULATORY - MEDICINE AMBULATORY - [place]ICI [place] 10/27/2024 AMBULATORY - MEDICINE AMBULATORY - MEDICI NE [facility] [place] [facility] 11/04/2024 AMBULATORY - MEDICINE AMBULATORY - MEDICI NE [facility] [place] [facility] 11/18/2024 AMBULATORY - NONE AMBULATORY - NONE [facility] 11/18/2024 AMBULATORY - MEDICINE AMBULATORY - MEDICI NE [facility] 01/20/2025 AMBULATORY - MEDICINE AMBULATORY - MEDICI NE [place] 08/25/2024 Consult Order [facility] Cons Manufacturing Production Manager's Choice [place] 09/16/2024 Consult Order HEPATOLOGY SERVI JALYN IFC WHAV Cons Manufacturing Production Manager's Choice [place] 09/21/2024 Laboratory - Cracking Still Operator ry Order ALCOHOL, ETHYL URINE PANEL URINE (DRUG) SP [facility] [place] [facility] 09/21/2024 Laboratory - Cracking Still Operator ry Order AMPHETAMINES SCREEN PANEL URINE (DRUG) SP [facility] [place] [facility] 09/21/2024 Laboratory - Cracking Still Operator ry Order FENTANYL SCREEN PANEL URINE (DRUG) [facility]20[facility] Laboratory - Cracking Still Operator ry Order BENZODIAZEPINES SCREEN PANEL URINE (DRUG) SP [facility] 09/21/2024 Laboratory - Cracking Still Operator ry Order BUPRENORPHINE SCREEN PANEL URINE (DRUG) [facility] 09/21/2024 Laboratory - Cracking Still Operator ry Order CANNABINOIDS SCREEN PANEL URINE (DRUG) SP [facility] 09/21/2024 Laboratory - Cracking Still Operator ry Order COCAINE SCREEN PANEL URINE (DRUG) SP [facility] 09/21/2024 Laboratory - Cracking Still Operator ry Order OPIATES SCREEN PANEL URINE (DRUG) SP [facility] Laboratory - Cracking Still Operator ry Order OXYCODONE SCREEN PANEL URINE (DRUG) [facility] 09/21/2024 Laboratory - Cracking Still Operator ry Order METHADONE SCREEN URINE SP [facility] Advance Directives List of completed, amended, or rescinded Advance Directives on record at [facility] facilities. An actual copy of the Directive is not included. Date Advance Directive Provider Source 05/23/2011 ADVANCE DIRECTIVE JUD BROOKS
--- OUTSIDE RECORDS SUMMARY | 2024-09-30 08:34 | XMS_ITS | Encounter Summary ---
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 [facility] [place] Address [address] [place] [address] Care Team Providers Care Test Engine Evaluator Name Role Phone CHANI RHODES Primary Care Provider Unavailabl e Insurance Providers: All historical and current Section Date Range: From patient's date of to the date document was created. This section includes the names of all active insurance providers for the patient. Insurance Provider Type of Coverage Plan Name Start of Policy Coverage End of Policy Coverage Group Number Member ID Insurance Provider's Telephone Number Policy Zayas's Name Patient's Relationship to Policy Zayas [employer] [facility] February 03, 2022 [id number] EMERITA BAUTISTA PATIENT [facility] MEDICAID MEDICAID MEDIC AID Oct 06, 2013 MEDICAI D [id number] EMERITA BAUTISTA PATIENT MEDICARE (WNR) MEDICARE (M) PART A Mar 06, 2015 PART A [id number] EMERITA BAUTISTA PATIENT MEDICARE (WNR) MEDICARE (M) PART B Mar 06, 2015 PART B [id number] EMERITA BAUTISTA PATIENT MEDICARE (WNR) MEDICARE (M) PART B Mar 06, 2015 PART B [id number] EMERITA BAUTISTA PATIENT MEDICARE (WNR) MEDICARE (M) PART A Mar 06, 2015 PART A [id number] EMERITA BAUTISTA PATIENT MEDICARE (WNR) MEDICARE (M) PART B Mar 06, 2015 PART B [id number] [phone] EMERITA BAUTISTA PATIENT MEDICARE (WNR) MEDICARE (M) PART B Mar 06, 2015 PART B [id number] EMERITA BAUTISTA PATIENT MEDICARE (WNR) MEDICARE (M) PART A Mar 06, 2015 PART A [id number] EMERITA BAUTISTA PATIENT Selected Encounter This section includes the information on record at [place] for the Encounter. Date/Time Encounter Type Encounter Description Reason Pro vider Source Oct 21, 2023 02:58 PM Outpatient Encounter CLINICAL PHARMACY IHE Encounter Template Text not used by [place] Plan of Treatment: Future Appointments (+ 6 months) and Future Tests (+/- 45 days) The Plan of Treatment section includes future care activities for the patient from all [place] [facility]. This section includes future appointments and future orders which are active, pending or scheduled. Future Appointments This section includes appointments that were scheduled to occur 6 months from the date of the Encounter, up to a maximum of 20 appointments. The data comes from all [place] treatment facilities. Appointment Date/Time Appointment Type Appointme nt Facility Name Nov 03, 2023 10:00 AM AMBULATORY - MEDICINE [place] [facility] [place] [facility] Nov 10, 2023 10:45 AM AMBULATORY - MEDICINE [place] [facility] [place] [facility] Nov 27, 2023 10:00 AM AMBULATORY - MEDICINE [place] [facility] [place] [facility] Nov 28, 2023 09:00 AM [facility]ATORY - MEDICINE [facility] Dec 12, 2023 09:15 AM AM[facility]ULATORY - MEDICINE [facility] Dec 12, 2023 09:30 AM [facility] Dec 25, 2023 07:00 AM AMBULATORY - MEDICINE [place] [facility] [place] [facility] Dec 29, 2023 09:30 AM AMBULATORY - MEDICINE [facility] February 10, 2024 02:00 PM AMBULATORY - MEDICINE [place] [facility] [place] [facility] Mar 08, 2024 09:00 AM AMBULATORY - MEDICINE [facility] Mar 08, 2024 11:30 AM AMBULATORY - NONE [place] [facility] [place] [facility] Mar 22, 2024 02:15 PM AMBULATORY - MEDICINE [place] [facility] [place] [facility] Apr 06, 2024 03:00 PM AMBULATORY - MEDICINE [place] [facility] [place] [facility] Apr 14, 2024 09:30 AM AMBULATORY - MEDICINE [place] [facility] [place] [facility] Apr 19, 2024 03:00 PM AMBULATORY - MEDICINE [facility] Apr 20, 2024 09:00 AM AMBULATORY - MEDICINE [place] [facility] [place] [facility] Social History: Smoking Status (Most current) and Tobacco Use (All prior to encounter date) This section includes the most current, and the historical, smoking and tobacco- related health factors from the [place] facility where the Encounter took place. Current Smoking Status This section includes the most current smoking, or tobacco-related health factor, from the [place] facility where the Encounter took place. Date/Time Current Smoking Status Comment Facil ity Mar 11, 2023 08:30 AM VA-TOBACCO [facility] Tobacco Use History This section includes a history of the smoking, or tobacco-related health factors, that were collected on or before the date of the Encounter. The data comes from the [place] facility where the Encounter took place. Date/Time Smoking Status/Tobacco Use Comment F acility Mar 11, 2023 08:30 AM VA-TOBACCO QUIT 15 YRS OR MORE IN [facility] [place] [facility] Dec 27, 2020 02:00 PM VA-TOBACCO FORMER USER IN [facility] [place] [facility] Dec 27, 2020 02:00 PM VA-TOBACCO QUIT 15 YRS OR MORE [facility] Advance Directives: All historical and current Section Date Range: From patient's date of to the date document was created. This section includes ALL of a patient's completed or amended [place] Advance and Rescinded Directives. The entries below indicate that a directive exists for the patient, but an actual copy is not included with this document. The data comes from all [place] facilities. Date Advance Directives Provider Source May 23, 2011 ADVANCE DIRECTIVE JUD BROOKS Encounter Notes: All associated encounter notes This section contains the clinical notes associated to the Encounter. Date/Time Encounter Note(s) Provider Source Oct 21, 2023 02:58 PM DIABETOLOGY NOTE: LOCAL TITLE: INSULIN PUMP/CGM DOWNLOAD (T) STANDARD TITLE: DIABETOLOGY NOTE DATE OF NOTE: OCT 21, 2023@14:58 ENTRY DATE: OCT 21, 2023@14:59:01 AUTHOR: SHANDA BECK EXP COSIGNER: URGENCY: STATUS: COMPLETED Please select: Personal Continuous Glucose Monitor- DEXCOM G7 Date of Documentation:Oct Please see attached scanned document in [facility]. /lora/ SHANDA BECK CLINICAL CENTRAL MELT SPECIALIST Signed: 10/21/2023 14:59 SHANDA BECK [place]
--- OUTSIDE RECORDS SUMMARY | 2024-09-30 08:34 | XMS_ITS ---
Author Name [facility] [place] [facility] [place] Address [address] [place] [address] Care Team Providers Care Jewelry Setter Name Role Phone CHANI RHODES Primary Care [...] Policy Zayas [employer] [facility] February 03, 2022 [id number] [phone] EMERITA BAUTISTA PATIENT [facility] MEDICAID MEDICAID MEDIC AID Oct 06, 2013 MEDICAI D [id number] EMERITA BAUTISTA PATIENT MEDICARE (WNR) MEDICARE (M) PART A Mar 06, 2015 PART A [id number] EMERITA BAUTISTA PATIENT MEDICARE (WNR) MEDICARE (M) PART B Mar 06, 2015 PART B [id number] [phone] EMERITA BAUTISTA PATIENT MEDICARE (WNR) MEDICARE (M) PART B Mar 06, 2015 PART B [id number] [phone] EMERITA BAUTISTA PATIENT MEDICARE (WNR) MEDICARE (M) PART A Mar 06, 2015 PART A [id number] [phone] EMERITA BAUTISTA PATIENT MEDICARE (WNR) MEDICARE (M) PART B Mar 06, 2015 PART B [id number] [phone] EMERITA BAUTISTA PATIENT MEDICARE (WNR) MEDICARE (M) PART B Mar 06, 2015 PART B [id number] [phone] EMERITA BAUTISTA PATIENT MEDICARE (WNR) MEDICARE (M) PART A Mar 06, 2015 PART A [id number] EMERITA BAUTISTA PATIENT Selected Encounter This section includes the information on record at [place] for the Encounter. Date/Time Encounter Type Encounter Description Reason Pro vider Source Oct 07, 2023 10:06 AM Outpatient Encounter PRIMARY CARE/MEDICINE IHE Encounter Template Text not used by [place] Plan of Treatment: Future Appointments (+ 6 months) and Future Tests (+/- 45 days) The Plan of Treatment section includes future care activities for the patient from all [place] treatment[facility]. This section includes future appointments and future orders which are active, pending or scheduled. Future Appointments This section includes appointments that were scheduled to occur 6 months from the date of the Encounter, up to a maximum of 20 appointments. The data comes from all [place] treatment facilities. Appointment Date/Time Appointment Type Appointme nt Facility Name Oct 17, 2023 02:00 PM AMBULATORY - MEDICINE [place] [facility] [place] [facility] Nov 03, 2023 10:00 AM AMBULATORY - MEDICINE [place] [facility] [place] [place] [facility] Nov 10, 2023 10:45 AM AMBULATORY - MEDICINE [place] [facility] [place] [place] [facility] Nov 27, 2023 10:00 AM AMBULATORY - MEDICINE [place] [facility] [place] [facility] Nov 28, 2023 09:00 [facility] Dec 12, 2023 09:15 AM [facility] - MEDICINE [facility] Dec 12, 2023 09:30 AM [facility] Dec 25, 2023 07:00 AM AMBULATORY - MEDICINE [place] [facility] [place] [place] [facility] Dec 29, 2023 09:30 AM AMBULATORY - MEDICINE [facility] February 10, 2024 02:00 PM AMBULATORY - MEDICINE [place] [facility] [place] [place] [facility] Mar 08, 2024 09:00 AM [place] Mar 08, 2024 11:30 AM AMBULATORY - NONE [place] [facility] [place] [facility] Mar 22, 2024 02:15 PM AMBULATORY - MEDICINE [place] [facility] [place] [place] [facility] Apr 06, 2024 03:00 PM [facility] Social History: Smoking Status (Most current) and Tobacco Use (All prior to encounter date) This section includes the most current, and the historical, smoking and tobacco- related health factors from the [place] facility where the Encounter took place. Current Smoking Status This section includes the most current smoking, or tobacco-related health factor, from the [place] facility where the Encounter took place. Date/Time Current Smoking Status Comment Facil ity Mar 11, 2023 08:30 AM [facility] Tobacco Use History This section includes a history of the smoking, or tobacco-related health factors, that were collected on or before the date of the Encounter. The data comes from the [place] facility where the Encounter took place. Date/Time Smoking Status/Tobacco Use Comment F acility Mar 11, 2023 08:30 AM VA-TOBACCO QUIT 15 YRS OR MORE [place] [facility] [place] [facility] Dec 27, 2020 02:00 PM VA-TOBACCO FORMER USER [place] [facility] [place] [facility] Dec 27, 2020 02:00 PM VA-TOBACCO QUIT 15 YRS OR MORE [facility] Advance Directives: All historical and current Section Date Range: From patient's date of to the date document was created. This section includes ALL of a patient's completed or amended [place] Advance and Rescinded Directives. The entries below indicate that a directive exists for the patient, but an actual copy is not included with this document. The data comes from all [place] facilities. Date Advance Directives Provider Source May 23, 2011 ADVANCE DIRECTIVE JUD BROOKS Encounter Notes: All associated encounter notes This section contains the clinical notes associated to the Encounter. Date/Time Encounter Note(s) Provider Source Oct 07, 2023 10:06 AM PRIMARY CARE NOTE: LOCAL TITLE: WALK-IN NOTE PRIMARY CARE (T) STANDARD TITLE: PRIMARY CARE NOTE DATE OF NOTE: OCT 07, 2023@10:06 ENTRY DATE: OCT 07, 2023@10:06:08 AUTHOR: MORENITA SMITH COSIGNER: URGENCY: STATUS: COMPLETED WALK-IN NOTE PRIMARY CARE (T) Has ADDENDA <====Click to Start Advanced Medical Support Onley presents to the Primary Care clinic with the following request: [ X ]Medication Renewal/Refill [ ]Consultation with Team RN [ ]Symptoms [ ]Other The Onley states they are: [ ]Waiting [ X ]Not Waiting No Walk in visit scheduled with PACT Nurse [ X ] At this encounter the Onley's demographics were verified. [ X ] At this encounter the Onley's Insurance information was verified. [ X ] At this encounter the below scheduled visits for the Onley were discussed and appointment reminder card was offered. Future appointments: 10/17/2023 14:00 CWM/SO/PHARM/PACT 2 11/28/2023 09:00 CWM/SO/PACT [facility] 12/29/2023 09:30 CWM/SO/PACT [facility] 04/20/2024 09:00 NHM/OPTOMETRY/WELSH/ REQUESTING REFILL ON THE FOLLOWING RX 01/10/2023 11:30 New Order entered by SHANDA BECK ([employer]) Order Text: EMPAGLIFLOZIN TAB,ORAL 25MG TAKE ONE TABLET BY MOUTH ONCE DAILY Quantity: 60 Refills: 2 Indication: FOR TYPE 2 DIABETES MELLITUS WOULD LIKE RX MAILED /lora/ MORENITA VARMA Signed: 10/07/2023 10:07 Receipt Acknowledged By: 10/08/2023 22:29 /es/ NIMCO SYKES RN-BC REGISTERED NURSE 10/08/2023 10:03 /es/ MANDO COOLEY LPN Licensed Practical Nurse 10/07/2023 14:35 /lora/ SHANDA BECK CLINICAL MAIL CARRIER 10/07/2023 ADDENDUM STATUS: COMPLETED Empagliflozin has been renewed for mail per request. Last eGFR: 76ml/min on 05/2023. Pt has had multiple no shows. next scheduled za 10/17/23. /lora/ SHANDA BECK CLINICAL MAIL CARRIER Signed: 10/07/2023 14:40 MORENITA SMITH
--- OUTSIDE RECORDS SUMMARY | 2024-09-30 08:34 | XMS_ITS | Encounter Summary ---
Author Name [facility] [place] [facility] [place] [facility] [facility] [place] Address [address] [place] [address] Care Team Providers Care Inclusion Teacher Name Role Phone CHANI RHODES Primary Care [...] to Policy Zayas [employer]ANCE [facility] February 03, 2022 [id number] EMERITA BAUTISTA PATIENT [facility] MEDICAID MEDICAID MEDIC AID Oct 06, 2013 MEDICAI D [id number] EMERITA BAUTISTA PATIENT MEDICARE (WNR) MEDICARE (M) PART A Mar 06, 2015 PART A [id number] EMERITA BAUTISTA PATIENT MEDICARE (WNR) MEDICARE (M) PART B Mar 06, 2015 PART B [id number] EMERITA BAUTISTA PATIENT MEDICARE (WNR) MEDICARE (M) PART B Mar 06, 2015 PART B [id number] EMERITA BAUTISTA PATIENT MEDICARE (WNR) MEDICARE (M) PART A Mar 06, 2015 PART A [id number] [phone] EMERITA BAUTISTA PATIENT MEDICARE (WNR) MEDICARE (M) PART B Mar 06, 2015 PART B [id number] [phone] EMERITA BAUTISTA PATIENT MEDICARE (WNR) MEDICARE (M) PART B Mar 06, 2015 PART B [id number] EMERITA BAUTISTA PATIENT MEDICARE (WNR) MEDICARE (M) PART A Mar 06, 2015 PART A [id number] EMERITA BAUTISTA PATIENT Selected Encounter This section includes the information on record at [place] for the Encounter. Date/Time Encounter Type Encounter Description Reason Provider Source Oct 17, 2023 02:00 PM MTMS BY PHARM MARY 15 MIN CLINICAL PHARMACY ICD-10-CM E11.9 Type 2 diabetes mellitus without complications [facility] Encounter Template Text not used by [place] Assessments - Encounter Diagnoses This section includes the primary and secondary diagnoses documented for the Encounter. Date/Time Primary/Secondary Diagnosis Diagnosis Name Provider Source Oct 21, 2023 02:51 PM PRIMARY Type 2 diabetes mellitus without complications [facility] Plan of Treatment: Future Appointments (+ 6 months) and Future Tests (+/- 45 days) The Plan of Treatment section includes future care activities for the patient from all [place] treatmentfacilities. This section includes future appointments and future orders which are active, pending or scheduled. Future Appointments This section includes appointments that were scheduled to occur 6 months from the date of the Encounter, up to a maximum of 20 appointments. The data comes from all [place] treatment facilities. Appointment Date/Time Appointment Type Appointme nt Facility Name Nov 03, 2023 10:00 AM [place]ORY [place] [facility] [place] [facility] Nov 10, 2023 10:45 AM [facility] [place] [facility] [place] [facility] Nov 27, 2023 10:00 AM AM[place]ORY [place]ICINE [place] [facility] [place] [facility] Nov 28, 2023 09:00 AM [facility] Dec 12, 2023 09:15 AM [facility] Dec 12, 2023 09:30 AM [facility] Dec 25, 2023 07:00 AM [facility] [place] [facility] Dec 29, 2023 09:30 AM [facility] February 10, 2024 02:00 PM AMBULATORY - MEDICINE [facility] [place] [facility] Mar 08, 2024 09:00 AM [facility] Mar 08, 2024 11:30 AM AMBULATORY - NONE [facility] [place] [facility] Mar 22, 2024 02:15 PM AMBULATORY - MEDICINE [facility] [place] [facility] Apr 06, 2024 03:00 PM AM[facility]ULATORY - MEDICINE [facility] [place] [facility] Apr 14, 2024 09:30 AM AMBULATORY - MEDICINE [facility] [place] [facility] Social History: Smoking Status (Most current) and Tobacco Use (All prior to encounter date) This section includes the most current, and the historical, smoking and tobacco- related health factors from the [place] facility where the Encounter took place. Current Smoking Status This section includes the most current smoking, or tobacco-related health factor, from the [place] facility where the Encounter took place. Date/Time Current Smoking Status Comment Ana ity Mar 27, 2022 09:30 AM VA-TOBACCO FORMER USER [facility] Tobacco Use History This section includes a history of the smoking, or tobacco-related health factors, that were collected on or before the date of the Encounter. The data comes from the [place] facility where the Encounter took place. Date/Time Smoking Status/Tobacco Use Comment F acility Mar 27, 2022 09:30 AM VA-TOBACCO QUIT 15 YRS OR MORE [facility] Dec 22, 2018 10:29 AM VA-TOBACCO FORMER USER [facility] Dec 22, 2018 10:29 AM VA-TOBACCO QUIT 15 YRS OR MORE [facility] Mar 19, 2018 11:33 AM VA-TOBACCO FORMER USER [facility] Mar 19, 2018 11:33 AM VA-TOBACCO QUIT 15 YRS OR MORE [facility] May 13, 2017 01:22 PM QUIT TOBACCO USE > 7 YEARS AGO quit 24 yrs ago [facility] Nov 15, 2015 09:48 AM QUIT TOBACCO USE > 7 YEARS AGO States he last smoked 21 years ago [facility] Dec 07, 2009 02:51 PM QUIT TOBACCO USE > 7 YEARS AGO [facility] Advance Directives: All historical and current Section Date Range: From patient's date of to the date document was created. This section includes ALL of a patient's completed or amended [place] Advance and Rescinded Directives. The entries below indicate that a directive exists for the patient, but an actual copy is not included with this document. The data comes from all [place] facilities. Date Advance Directives Provider Source May 23, 2011 ADVANCE DIRECTIVE BROOKSJUD PECK ARASELI [place] Encounter Notes: All associated encounter notes This section contains the clinical notes associated to the Encounter. Date/Time Encounter Note(s) Provider Source Oct 17, 2023 02:07 PM PHARMACY OUTPATIEN T NOTE: LOCAL TITLE: PHARMACY CLINIC NOTE STANDARD TITLE: PHARMACY OUTPATIENT NOTE DATE OF NOTE: OCT 17, 2023@14:07 ENTRY DATE: OCT 17, 2023@14:08 AUTHOR: SHANDA BECK COSIGNER: URGENCY: STATUS: COMPLETED Demographics: Patient Name: EMERITA BAUTISTA : Sep Age: 57 Sex: MALE Race: BLACK OR REASON FOR EDUCATION VISIT TODAY: Pt is stressed about work. He states his BG are running high and he ran out of ozmepic couple months ago. Per prev: Pt presents to the visit for dexcom G7 training. Pt will be using the reader. Pt states work is very stresful. He may be looking for a new job. Pt is otherwise in good spirits. His back is giving him trouble as well. Per prev:Pt presents for a follow up. He states he has been doing well but still very busy. Pt has been wearing Dexcom sensor and states he has been doing much better and imporved his nutrition. Per prev: Pt states he has been very busy at work. He has been out of ozempic for a week b/c pt is too busy to come to get [facility]. pt went to [facility] 2 weeks ago for sick call for Per prev: Pt came in for a visit earlier. He states his dexcom reader broke he was issued a new one - pt brought the entire equipment to restart the sensor. He has been without the sensor x 3 days. He did not bring the old reader unable to upload most recent BG data. Pt states he continues w/ his new postion still stressful but BG improved per pt's verbal report. Pt never picked up the semaglutide at the pharmacy window - he missed couple injections. Per prev: Pt presents to the visit stating he is doing much better. He continues to wear Dexcom G6 sensor. He also adds there have been a lot of stressors in his life especially work related. S:Pt was followed up after he has recently been seen for a sick visit and consequently sent to the ER. Pt states that ER did not find any significant findings and he was released home. He restarted metformin this week at a lower dose which releaved diarrhea per pt's report. Per urgent visit note on 12/16/22: Pt presents at the [facility] for persistent watery diarrhea - 4-5 daily for the last 2 weeks. He denies any blood or mucus in stool, no black watery diarrhea. He denies any fever chills but complains of feeling very fatigue. Also patient complaining of abdominal pain on and off mostly in the right upper quadrant. He denies any nausea or vomiting but he admits of not eating too much. He tried to drink plenty of fluids but he is not able to tell me how much fluids he drinks in 24 hours. He is a diabetic patient in the he has been taking Lantus 40 units in the morning and at nighttime and 25 units insulin aspartate 3 times the day before meals. He is on Jardiance and metformin and patient states he has been taking the medication despite not eating appropriate. He was seen on December 09 in our sick clinic and had BUN/creatinine done which came in normal limits had stool studies done that were normal. He had CAT scan abdomen done with p.o. and IV contrast on December 12 but patient states was not advised to stop metformin before and after CAT scan. He has been taking metformin 2 tablets in the morning as usual. Patient has Dexcom and he states in the morning when he woke up glucose level was over 200s at this moment is 179 in office. Target Goals: A1C: 7%; FB-130 mg/dL; 2HRS PP <180mg/dL. Allergies: Patient has answered NKA CURRENT DIABETES MEDICATIONS Diabetes Medication Regimen: -- insulin glargine (Semglee) 40 units bid (and split into two seperate injections); -- Insulin Novolog 25 units TID (B/L/D) -- metformin SA * 750 mg in AM - pt unable to tolerate higher dose GI ADR -- Semaglutide 1 mg weekly - pt missed couple of months -- empagliflozin 25mg daily in AM - increased dose on 01/2023 Previous DM Medications: -- liraglutide 1.8mg daily - stopped on 09/19/23 - Trulicity - stopped when converted back to semaglutide Adherence: Oral meds: denies missed doses Insulin: yes, _ MOST RECENT LABS: HEMOGLOBIN A1C TREND Collection DT Spec HGBA1c 05/07/2023 14:35 BLOOD 7.2 H 09/23/2022 09:57 BLOOD 8.0 H 03/14/2022 11:36 BLOOD 7.3 H 12/05/2021 11:44 BLOOD 7.9 H 08/23/2021 07:59 BLOOD 8.0 H CHEM 7 TREND LAB CUMULATIVE SELECTED Collection DT Spec GLUCOSE BUN CREATIN Sodium K+/Pot CL CO2 05/21/2023 10:31 SERUM 127 H 12 1.11 140 4.4 106 26 05/07/2023 14:35 SERUM 153 H 16 1.25 142 4.2 105 26 12/10/2022 13:22 SERUM 16 1.05 11/06/2022 14:26 SERUM 282 H 16 1.09 136 4.1 102 22 09/23/2022 09:57 SERUM 229 H 15 1.06 136 4.4 106 21 LAB CUMULATIVE SELECTED 2 No selection items chosen for this component. CHEM 7 Results Collection DT Spec Sodium K+/Pot CL CO2 GLUCOSE BUN 05/21/2023 10:31 SERUM 140 4.4 106 26 127 H 12 05/07/2023 14:35 SERUM 142 4.2 105 26 153 H 16 12/10/2022 13:22 SERUM 16 11/06/2022 14:26 SERUM 136 4.1 102 22 282 H 16 09/23/2022 09:57 SERUM 136 4.4 106 21 229 H 15 03/21/2022 11:47 SERUM 137 4.1 106 22 164 H 14 12/05/2021 11:48 SERUM 136 4.8 105 22 130 H 15 11/03/2020 10:07 SERUM 139 4.7 105 26 138 H 14 06/25/2019 08:54 SERUM 137 4.4 104 24 360 H 13 03/05/2018 10:45 SERUM 141 4.8 106 29 163 H 16 05/12/2017 09:39 SERUM 136 4.7 105 23 158 H 17 07/14/2015 11:03 SERUM 139 4.2 105 26 139 H 14 06/17/2013 11:20 SERUM 139 4.6 104 28 162 H 12 05/16/2011 09:00 SERUM 137 4.8 101 25 334 H 15 LIPID PANEL TREND Collection DT Spec CHOL HDL CHO/HDL LDL-d LDL-c TRIG 05/21/2023 10:31 SERUM 189 35 L 5.4 110 219 H 05/07/2023 14:35 SERUM 203 H 35 L 5.8 118 251 H 09/23/2022 09:57 SERUM 160 32 L 5.0 95 Reflex to dLDL 328 H 03/21/2022 11:47 SERUM 206 H 33 L 6.2 123 H Reflex to dLDL 303 H 11/03/2020 10:07 SERUM 132 30 L 4.4 70 161 H WEIGHT: 276.2 lb [125.28 kg] (05/21/2023 09:06) HEIGHT: 77 in [195.6 cm] (03/27/2022 09:18) BMI: 32.8 BG readings: Date: 10/17/23 Dexcom G7 14 day average: 214 mg/dl 17% VERY HIGH 66% HIGH 7% IN TARGET RANGE 0% LOW 0% VERY LOW A SEPERATE UPLOAD CAN BE FOUND IN CPRS UNDER A DIFFERENT NOTE NUTRITION: breakfast: grapefruit; lunch: on a go : chicken breast, stuffed pepper, water keto cereal; dinner: 7PM: varies, daughter or or self cooks, protein/starch/veggie, snacks: lots, their terriwater or diet cokeble Beverages consumed: water or diet coke chaged - stays away from greasy, fatty foods Exercise: knee pain is current limitation HYPOGLYCEMIC Events: 0 in the last 2 weeks Hypoglycemia recognition & treatment reviewed: Yes EtOH/Illicit drugs: Alcohol: denies Tobacco: denies Other: - Denies personal or fhx thyroid cancer or MENS2 - Denies hx pancreatitis Personal Goals: - Get BG under control weight on 05/21/23 => 276. 2 lbs ASSESSMENT/PLAN: BG very high as relfected on dexcom sensor. Recommend to restart semaglutide. Pt in agreement. Reviewed the titration w/ pt. Pt to also increase dose of insulin glargine per protocol. Reviewed nutrition w/ [place]. Pt to f/up over telephone due to pt's busy work schedule to assure pt's BG are going down. DIABETES A1c is above goal of <7% - Medication management Diabetes Diabetes Medication Regimen: -incresae insulin glargine (Semglee) 44 units bid (and split into two seperate injections); if BG continues to be above 200 - may further increase to 42 units bid - c/t insulin Novolog 25 units TID (B/L/D) --c/t metformin SA * 750 mg in AM --RESTART semaglutide 0.25 mg weekly x 2 weeks then 0.5 mg weekly --c/t empagliflozin 25mg daily in AM - Reviewed [facility] lab [facility] - Monitor for s/sx hypoglycemia and contact clinic if BG consistently <70mg/dL - Healthy dietary and lifestyle modifications encouraged - to cut down on portions and sweets - Repeat A1c: x 3 months HTN: recent BP ; lisinopril ; LEILANI-I/ARB - defer to PCP ASCVD: atorvasatain Microalb: mALB/Cr: 31.8 H mg/G (03/2022) Most recent visit to cartridge gauger: 10/2021 Most recent visit to optometry: 04/2022; Type 2 diabetes mellitus with moderate nonproliferative diabetic retinopathy with macular edema, right eye; Type 2 diabetes mellitus with mild nonproliferative diabetic retinopathy without macular edema, left eye Clinic's Next Scheduled Follow-up: 11/03/23 telephoen at 9 AM No barriers; Patient understands and agrees to current treatment plan. If he has any questions, concerns, or changes in current health status he will call or come [facility]. 07/04/2023 12:59 COM CARE-OTHER 07/04/2023 13:00 COM CARE-OTHER 07/18/2023 08:30 CWM/SO/PHARM/PACT 2 11/28/2023 09:00 CWM/SO/PACT EIGHT 04/20/2024 09:00 NHM/OPTOMETRY/[facility]/ DM type is : T2D Length of Visit: 30 minutes PBM PharmD Pharmacotherapy Rem V12: PHARMACIST INTERVENTIONS: TYPE 2 DIABETES MELLITUS Medication Intervention(s) Initiate new medication Plan: RESTART SEMAGLUTIDE; INCREASE DOSE OF INSULIN GLARGINE Medication monitoring, no dosage change required, continue to monitor and assess /es/ SHANDA BECK CLINICAL TREASURY ANALYST Signed: 10/21/2023 14:58 Receipt Acknowledged By: 10/23/2023 20:27 /lora/ VENKATA MARES MD PRIMARY CARE PHYSICIAN [facility]K [facility]
--- OUTSIDE RECORDS SUMMARY | 2024-09-30 08:34 | XMS_ITS | Encounter Summary ---
Author Name [facility] [facility] [place] [facility] [place] [facility] [place] Address [address] [place] [address] Care Team Providers Care Credit Control Officer Name Role Phone CHANI RHODES Primary Care [...] to Policy Zayas [employer] DENTAL [employer]URANCE [facility] February 03, 2022 [id number] EMERITA BAUTISTA PATIENT [facility] MEDICAID MEDICAID MEDIC AID Oct 06, 2013 MEDICAI D [id number] EMERITA BAUTISTA PATIENT MEDICARE (WNR) MEDICARE (M) PART A Mar 06, 2015 PART A [id number] EMERITA BAUTISTA PATIENT MEDICARE (WNR) MEDICARE (M) PART B Mar 06, 2015 PART B [id number] [phone] EMERITA BAUTISTA PATIENT MEDICARE (WNR) MEDICARE (M) PART B Mar 06, 2015 PART B [id number] [phone] EMERITA BAUTISTA PATIENT MEDICARE (WNR) MEDICARE (M) PART A Mar 06, 2015 PART A [id number] EMERITA BAUTISTA PATIENT MEDICARE (WNR) MEDICARE (M) PART B Mar 06, 2015 PART B [id number] EMERITA BAUTISTA PATIENT MEDICARE (WNR) MEDICARE (M) PART B Mar 06, 2015 PART B [id number] EMERITA BAUTISTA PATIENT MEDICARE (WNR) MEDICARE (M) PART A Mar 06, 2015 PART A [id number] [phone] EMERITA BAUTISTA PATIENT Selected Encounter This section includes the information on record at [place] for the Encounter. Date/Time Encounter Type Encounter Description Reason Provider Source Nov 03, 2023 10:00 AM PRO PHONE CALL 11-20 MIN TELEPHONE PRIMARY CARE ICD-10-CM E11.9 Type 2 diabetes mellitus without complications JOAQUÍN BECK [facility] Encounter Template Text not used by [place] Assessments - Encounter Diagnoses This section includes the primary and secondary diagnoses documented for the Encounter. Date/Time Primary/Secondary Diagnosis Diagnosis Name Provider Source Nov 03, 2023 10:00 AM PRIMARY Type 2 diabetes mellitus without complications TAO BECK [facility] Plan of Treatment: Future Appointments (+ 6 months) and Future Tests (+/- 45 days) The Plan of Treatment section includes future care activities for the patient from all [place] treatmentfacilities. This section includes future appointments and future orders which are active, pending or scheduled. Future Appointments This section includes appointments that were scheduled to occur 6 months from the date of the Encounter, up to a maximum of 20 appointments. The data comes from all [place] treatment facilities. Appointment Date/Time Appointment Type Appointme nt Facility Name Nov 10, 2023 10:45 AM [place] [facility] [place] [facility] Nov 27, 2023 10:00 AM [place] [facility] [place] [facility] Nov 28, 2023 09:00 AM [facility] Dec 12, 2023 09:15 AM [facility] Dec 12, 2023 09:30 AM [facility] Dec 25, 2023 07:00 AM [place] [facility] [place] [facility] Dec 29, 2023 09:30 AM [facility] February 10, 2024 02:00 PM [facility] [place]INE [place] [facility] [place] [facility] Mar 08, 2024 09:00 AM [facility]IC[facility] Mar 08, 2024 11:30 AM AMBULATORY - NONE [facility] [place] [facility] Mar 22, 2024 02:15 PM [facility] [place]INE [place] [facility] [place] [facility] Apr 06, 2024 03:00 PM AM[facility] [place]INE [place] [facility] [place] [facility] Apr 14, 2024 09:30 AM [place] [facility] [place] [facility] Apr 19, 2024 03:00 PM [facility] Apr 20, 2024 09:00 AM [place] [facility] [place] [facility] Apr 28, 2024 03:00 PM [place] [facility] [place] [facility] Lab Results: +/- 30 days of the encounter This section includes the Chemistry and Hematology Lab Results on record with [place] for the patient. Radiology Reports and Pathology Reports are provided separately, in subsequent sections. Lab Results This section contains the Chemistry/Hematology Results that were resulted 30 days before or 30 daysafter the date of the Encounter. Date/Time Source Result Type Result - Unit Interpretation Reference Range Comment Nov 27, 2023 10:26 AM [facility] HEMOGLOBIN A1C PANEL Specimen Type: BLOOD Comment: Values obtained from A1C measurements can vary. For atypical A1C assays, a reported value of 7.0 could actually be between 6.72 and 7.28 if measured by a reference method. A reported value of 9.0 could actually be between 8.73 and 9.27. Ref: http://www.ngsp. org/CAPdata.asp Ordering Provider: SHANDA BECK Report Released Date/Time: Nov 27, 2023 10:16 AM Reporting Lab: [facility] [address] [address] Performing Lab: [address] [address] HEMOGLOBIN A1C 8.2 H 4.0-5.6 Nov 27, 2023 10:26 AM [facility] CBC Specimen Type: BLOOD No comment entered. Ordering Provider: SHANDA BECK Report Released Date/Time: Nov 27, 2023 10:17 AM Reporting Lab: [facility] [address] [address] Performing Lab: [facility] [address] [address] WBC 5.30 10*3/uL 4.50-11.00 RBC 5.70 10*6/uL H 4.23-5.66 HGB 17.2 g/dL H 12.8-17 HCT 51.0 H 39.2-50.4 MCV 89.5 fL 82-99 MCHC 33.7 g/dL 30.8-35.1 PLT 131 10*3/uL L 140-360 RDW-CV 12.8 12.0-16.0 MCH 30.2 pg 26.2-32.6 Nov 25, 2023 09:22 AM [facility] MICROALBUMIN CREATININE RATIO PANEL Spe cimen Type: URINE No comment entered. Ordering Provider: VENKATA MARES Report Released Date/Time: Sep 17, 2023 09:09 AM Reporting Lab: [facility] [address] [address] Performing Lab: [address] [address] MICROALBUMIN/ CREATININE RATIO 28.1 mg/g 0-29.9 MICROALBUMIN, QUANTITATIVE 2.0 mg/dL RR UNAVAIL CREATININE URINE 71.08 mg/dL Nov 25, 2023 09:22 AM [facility] VITAMIN D 25-OH (Therapy monitor) Speci men Type: SERUM Comment: Vitamin D, 25-Hydroxy reports concentrations of two common forms, 25-OHD2 and 25-OHD3. 25-OHD3 indicates both endogenous production and supplementation. 25-OHD2 is an indicator of exogenous sources such as diet or supplementation. Therapy is based on measurement of Total 25-OHD, with levels <20 ng/mL indicative of Vitamin D deficiency, while levels between 20 ng/mL and 30 ng/mL suggest insufficiency. Optimal levels are > or = 30 ng/mL. For additional information, please refer to http://education .OpTrip.[employer]/faq/TYN076 (This link is being provided for informational/ educational purposes only.) This test was developed and its analytical performance characteristics have been determined by [employer] [facility] [place], [place]. It has not been cleared or approved by the U.S. Food and Drug Administration. This assay has been validated pursuant to the CLIA regulations and is used for clinical purposes. This test was developed and its analytical performance characteristics have been determined by [employer] [facility] [place], [place]. It has not been cleared or approved by the U.S. Food and Drug Administration. This assay has been validated pursuant to the CLIA regulations and is used for clinical purposes. Test Performed by [facility], [address] [place] [address] Mohit Cazares M.D., Ph.D., Director of Laboratories , CLIA [id number] TEST PERFORMED AT: , Ordering Provider: VENKATA MARES Report Released Date/Time: Nov 20, 2023 07:33 AM Reporting Lab: [address] [address] Performing Lab: [address] [address] VITAMIN D, 25-OH, TOTAL 9 ng/mL L 30-100 VITAMIN D, 25-OH, D3 9 ng/mL VITAMIN D, 25-OH, D2 <4 ng/mL Nov 25, 2023 09:22 AM [facility] VITAMIN B12 Specimen Type: SERUM No comment entered. Ordering Provider: VENKATA MARES Report Released Date/Time: Nov 20, 2023 07:33 AM Reporting Lab: [address] [address] Performing Lab: [address] [address] VITAMIN B12 815 pg/mL 200-900 Nov 25, 2023 09:22 AM [facility] LIPID PANEL FASTING Specimen Type: SERUM No comment entered. Ordering Provider: VENKATA MARES Report Released Date/Time: Nov 20, 2023 07:33 AM Reporting Lab: [address] [address] Performing Lab: [address] [address] CHOLESTEROL 228 mg/dL H TRIGLYCERIDE 359 mg/dL H 0-150 LDL calculated Reflex to dLDL mg/dL 0-129 CHOL/HDL 7.4 HDL CHOLESTEROL 31 mg/dL L 40-60 LDL DIRECT 145 mg/dL H Nov 25, 2023 09:22 AM [facility] BASIC METABOLIC PANEL (fasting) Specime n Type: SERUM No comment entered. Ordering Provider: VENKATA MARES Report Released Date/Time: Nov 20, 2023 07:33 AM Reporting Lab: [address] [address] Performing Lab: [address] [address] UREA NITROGEN 15 mg/dL 7-25 GLUCOSE 271 mg/dL H 65-100 SODIUM 139 mmol/L 135-145 POTASSIUM 4.5 mmol/L 3.5-5.0 CHLORIDE 106 mmol/L 100-110 CO2 23 meq/L 20-30 CREATININE, Serum 1.15 mg/dL 0.50-1.40 eGFR(CKD-EPI 2020) 73 mL/min >60 Nov 25, 2023 09:22 AM [facility] LIVER FUNCTION Specimen Type: SERUM No comment entered. Ordering Provider: VENKATA MARES Report Released Date/Time: Nov 20, 2023 07:33 AM Reporting Lab: [address] [address] Performing Lab: [address] [address] PROTEIN,TOTAL 7.6 g/dL 6.0-8.3 ALBUMIN 3.9 g/dL 3.5-5.0 ALKALINE PHOSPHATASE 91 U/L 40-150 AST 27 U/L 5-34 ALT 54 U/L BILIRUBIN, TOTAL 0.8 mg/dL 0.2-1.2 Social History: Smoking Status (Most current) and Tobacco Use (All prior to encounter date) This section includes the most current, and the historical, smoking and tobacco- related health factors from the [place] facility where the Encounter took place. Current Smoking Status This section includes the most current smoking, or tobacco-related health factor, from the [place] facility where the Encounter took place. Date/Time Current Smoking Status Comment Facil ity Mar 27, 2022 09:30 AM [facility] FORMER USER [facility] Tobacco Use History This section includes a history of the smoking, or tobacco-related health factors, that were collected on or before the date of the Encounter. The data comes from the [place] facility where the Encounter took place. Date/Time Smoking Status/Tobacco Use Comment F acility Mar 27, 2022 09:30 AM VA-TOBACCO QUIT 15 YRS OR MORE [facility] Dec 22, 2018 10:29 AM VA-TOBACCO FORMER USER [facility] Dec 22, 2018 10:29 AM VA-TOBACCO QUIT 15 YRS OR MORE [facility] Mar 19, 2018 11:33 AM VA-TOBACCO FORMER USER [facility] Mar 19, 2018 11:33 AM VA-TOBACCO QUIT 15 YRS OR MORE [facility] May 13, 2017 01:22 PM QUIT TOBACCO USE > 7 YEARS AGO quit 24 yrs ago [facility] Nov 15, 2015 09:48 AM QUIT TOBACCO USE > 7 YEARS AGO States he last smoked 21 years ago [facility] Dec 07, 2009 02:51 PM QUIT TOBACCO USE > 7 YEARS AGO [facility] Advance Directives: All historical and current Section Date Range: From patient's date of to the date document was created. This section includes ALL of a patient's completed or amended [place] Advance and Rescinded Directives. The entries below indicate that a directive exists for the patient, but an actual copy is not included with this document. The data comes from all [facility]. Date Advance Directives Provider Source May 23, 2011 ADVANCE DIRECTIVE JUD BROOKS Encounter Notes: All associated encounter notes This section contains the clinical notes associated to the Encounter. Date/Time Encounter Note(s) Provider Source Nov 04, 2023 11:45 AM PHARMACY OUTPATIEN T NOTE: LOCAL TITLE: PHARMACY CLINIC NOTE STANDARD TITLE: PHARMACY OUTPATIENT NOTE DATE OF NOTE: NOV 04, 2023@11:45 ENTRY DATE: NOV 04, 2023@11:45:43 AUTHOR: SHANDA BECK COSIGNER: URGENCY: STATUS: COMPLETED Demographics: Patient Name: EMERITA BAUTISTA : Sep Age: 57 Sex: MALE Race: BLACK OR REASON FOR EDUCATION VISIT TODAY: Pt was contacted over the telephone to f/up after last visit on 10/17/23 for the re-initiation of semaglutide and BG levels. At the time of the call pt was busy and had to end the conversation short. Per prev: Pt is stressed about work. He states [...] to come to get oz[place]ic from the [place]. pt went to [place] 2 weeks ago for sick call for [...] note on 12/16/22: Pt presents at the [facility] for persistent watery diarrhea - 4-5 daily [...] units bid (and split into two seperate injections);Pt did not increase the dose as instructed at the last visit -- Insulin Novolog 25 units TID (B/L/D) -- metformin SA * 750 mg in AM - pt unable to tolerate higher dose GI ADR -- Semaglutide 0.5 mg weekly - pt restarted on 10/17/23 this week increased to 0.5 mg weekly -- empagliflozin 25mg daily in AM - increased dose on 01/2023 -eGFR 76 ml/min on 05/2023 Previous DM Medications: -- liraglutide 1.8mg daily [...] FOUND IN CPRS UNDER A DIFFERENT NOTE 11/04/23: Pt was unable to repor the BG readings from his reader. NUTRITION: breakfast: grapefruit; lunch: on a go [...] weight on 05/21/23 => 276. 2 lbs weight on 07/2023 => 275 lbs ASSESSMENT/PLAN: Unable to fully review the BG readings w/ the due to his busy schedule. He did state BG still in high 190's - low 200's. Pt did not increase the insulin glargine as directed. REcommend to c/t w/ titration of insulin glargine. Pt is tolerating the semaglutide well c/t on 0.5 mg weekly dose w/ goal of inscreasing it further to 1 mg weekly. Pt has very busy scheduled recommned to c/t via telephone at this time. Close monitoring. Pt has not been well controlled for quite some time and has problems w/ medication adherence. f/up next week. 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 If he has any questions, concerns, or changes in current health status he will call [facility] 07/04/2023 12:59 COM CARE-OTHER 07/04/2023 13:00 COM CARE-OTHER 07/18/2023 08:30 CWM/SO/PHARM/PACT 2 11/28/2023 09:00 CWM/SO/PACT EIGHT 04/20/2024 09:00 NHM/OPTOMETRY/WELSH/ DM type is : T2D Length of Visit: 17 minutes PBM PharmD Pharmacotherapy Rem V12: PHARMACIST INTERVENTIONS: TYPE 2 DIABETES MELLITUS Medication Intervention(s) Adjust dose or frequency of current medication due to other reason Plan: increase dose of insulin glargine and semaglutide Medication monitoring, no dosage change required, continue to monitor and assess /lora/ SHANDA BECK CLINICAL STEEL WELDER Signed: 11/04/2023 13:10 Receipt Acknowledged By: 11/05/2023 08:49 /lora/ VENKATA MARES MD PRIMARY CARE PHYSICIAN SHANDA BECKFIELD
--- OUTSIDE RECORDS SUMMARY | 2024-09-30 08:35 | XMS_ITS | Encounter Summary ---
Author Name [facility] [place] [facility] [place] [facility] [place] [facility] [place] Address [address] [place] [address] Care Team Providers Care Plaster Pattern Caster Name Role Phone CHANI RHODES Primary Care [...] to Policy Zayas [employer] D[employer]ANCE [facility] February 03, 2022 [id number] EMERITA BAUTISTA PATIENT [facility] MEDICAID MEDICAID MEDIC AID Oct 06, 2013 MEDICAI D [id number] EMERITA BAUTISTA PATIENT MEDICARE (WNR) MEDICARE (M) PART A Mar 06, 2015 PART A [id number] [phone] EMERITA BAUTISTA PATIENT MEDICARE (WNR) MEDICARE (M) PART B Mar 06, 2015 PART B [id number] [phone] EMERITA BAUTISTA PATIENT MEDICARE (WNR) MEDICARE (M) PART B Mar 06, 2015 PART B [id number] EMERITA BAUTISTA PATIENT MEDICARE (WNR) MEDICARE (M) PART A Mar 06, 2015 PART A [id number] EMERITA BAUTISTA PATIENT MEDICARE (WNR) MEDICARE (M) PART B Mar 06, 2015 PART B [id number] [phone] EMERITA BAUTISTA PATIENT MEDICARE (WNR) MEDICARE (M) PART B Mar 06, 2015 PART B [id number] EMERITA BAUTISTA PATIENT MEDICARE (WNR) MEDICARE (M) PART A Mar 06, 2015 PART A [id number] [phone] EMERITA BAUTISTA PATIENT Selected Encounter This section includes the information on record at [place] for the Encounter. Date/Time Encounter Type Encounter Description Reason Provider Source Nov 10, 2023 10:45 AM PRO PHONE CALL 21-30 MIN TELEPHONE PRIMARY CARE ICD-10-CM E11.9 Type 2 diabetes mellitus without complications JOAQUÍN BECK Behzad Encounter Template Text not used by [place] Assessments - Encounter Diagnoses This section includes the primary and secondary diagnoses documented for the Encounter. Date/Time Primary/Secondary Diagnosis Diagnosis Name Provider Source Nov 10, 2023 10:45 AM PRIMARY Type 2 diabetes mellitus without complications TAO BECK [place] Plan of Treatment: Future Appointments (+ 6 months) and Future Tests (+/- 45 days) The Plan of Treatment section includes future care activities for the patient from all [place] treatmentfacilities. This section includes future appointments and future orders which are active, pending or scheduled. Future Appointments This section includes appointments that were scheduled to occur 6 months from the date of the Encounter, up to a maximum of 20 appointments. The data comes from all [place] treatment facilities. Appointment Date/Time Appointment Type Appointme nt Facility Name Nov 27, 2023 10:00 AM [place] [place] [facility] [place] [facility] Nov 28, 2023 09:00 AM [facility] Dec 12, 2023 09:15 AM [facility] Dec 12, 2023 09:30 AM [facility] Dec 25, 2023 07:00 AM [facility] [place] [facility] [place] [facility] Dec 29, 2023 09:30 AM [facility] February 10, 2024 02:00 PM [facility] [place] [facility] [place] [facility] Mar 08, 2024 09:00 AM [facility]ORY - [facility]ICINE [facility] [place] Mar 08, 2024 11:30 AM AMBUL[facility]ORY - NONE [facility] [place] [facility] Mar 22, 2024 02:15 PM [facility] [place] [facility] Apr 06, 2024 03:00 PM [facility] [place] [facility] Apr 14, 2024 09:30 AM [facility] [place] [facility] [place] [facility] Apr 19, 2024 03:00 PM [facility] Apr 20, 2024 09:00 AM [facility] [place] [facility] [place] [facility] Apr 28, 2024 03:00 PM [facility] Lab Results: +/- 30 days of the encounter This section includes the Chemistry and Hematology Lab Results on record with [place] for the patient. Radiology Reports and Pathology Reports are provided separately, in subsequent sections. Lab Results This section contains the Chemistry/Hematology Results that were resulted 30 days before or 30 daysafter the date of the Encounter. Date/Time Source Result Type Result - Unit Interpretation Reference Range Comment Nov 27, 2023 10:26 AM [facility] HEMOGLOBIN A1C PANEL Specimen Type: BLOOD [...] Nov 27, 2023 10:16 AM Reporting [facility]: [facility] [address] [facility] [address] Performing Lab: [address] [address] HEMOGLOBIN A1C 8.2 H 4.0-5.6 Nov 27, 2023 10:26 AM [facility] CBC Specimen Type: BLOOD No comment entered. Ordering Provider: SHANDA BECK Report Released Date/Time: Nov 27, 2023 10:17 AM Reporting Lab: [facility] [address] [facility] [address] Performing Lab: [facility] [address] [facility] [address] WBC 5.30 10*3/uL 4.50-11.00 RBC 5.70 10*6/uL H 4.23-5.66 HGB 17.2 g/dL H 12.8-17 HCT 51.0 H 39.2-50.4 MCV 89.5 fL 82-99 MCHC 33.7 g/dL 30.8-35.1 PLT 131 10*3/uL L 140-360 RDW-CV 12.8 12.0-16.0 MCH 30.2 pg 26.2-32.6 Nov 25, 2023 09:22 AM [facility] MICROALBUMIN CREATININE RATIO PANEL Spe cimen Type: URINE No comment entered. Ordering Provider: VENKATA MARES Report Released Date/Time: Sep 17, 2023 09:09 AM Reporting Lab: [facility] [address] [facility] [address] Performing Lab: [address] [address] MICROALBUMIN/ CREATININE RATIO 28.1 mg/g 0-29.9 MICROALBUMIN, QUANTITATIVE 2.0 mg/dL RR UNAVAIL CREATININE URINE 71.08 mg/dL Nov 25, 2023 09:22 AM [place] VITAMIN D 25-OH (Therapy monitor) Speci men [...] For additional information, please refer to http://[email or web address]/VKS899 (This link is being provided for informational/ educational purposes only.) This test was developed and its analytical performance characteristics have been determined by [facility] [place]. It has not been cleared or approved by the U.S. Food and Drug Administration. This assay has been validated pursuant to the CLIA regulations and is used for clinical purposes. This test was developed and its analytical performance characteristics have been determined by [facility]. It has not been cleared or approved by the U.S. Food and Drug Administration. This assay has been validated pursuant to the CLIA regulations and is used for clinical purposes. Test Performed by [facility], [facility], [address] [place] [address] Mohit Cazares M.D., Ph.D., Director of Laboratories , CLIA [id number] TEST PERFORMED AT: , Ordering Provider: VENKATA MARES Report Released Date/Time: Nov 20, 2023 07:33 AM Reporting Lab: [facility] [address] [facility] [address] Performing Lab: [place] [id number] [address] VITAMIN D, 25-OH, TOTAL 9 ng/mL L 30-100 VITAMIN D, 25-OH, D3 9 ng/mL VITAMIN D, 25-OH, D2 <4 ng/mL Nov 25, 2023 09:22 AM [place] BASIC METABOLIC PANEL (fasting) Specime n Type: SERUM No comment entered. Ordering Provider: VENAKTA MARES Report Released Date/Time: Nov 20, 2023 07:33 AM Reporting Lab: [facility] [address] [facility] [address] Performing Lab: [address] [address] UREA NITROGEN 15 mg/dL 7-25 GLUCOSE 271 mg/dL H 65-100 SODIUM 139 mmol/L 135-145 POTASSIUM 4.5 mmol/L 3.5-5.0 CHLORIDE 106 mmol/L 100-110 CO2 23 meq/L 20-30 CREATININE, Serum 1.15 mg/dL 0.50-1.40 eGFR(CKD-EPI 2020) 73 mL/min >60 Nov 25, 2023 09:22 AM [place] VITAMIN B12 Specimen Type: SERUM No comment entered. Ordering Provider: VENKATA MARES Report Released Date/Time: Nov 20, 2023 07:33 AM Reporting Lab: [facility] [address] [address] Performing Lab: [facility] [address] [address] VITAMIN B12 815 pg/mL 200-900 Nov 25, 2023 09:22 AM [place] LIPID PANEL FASTING Specimen Type: SERUM No comment entered. Ordering Provider: VENKATA MARES Report Released Date/Time: Nov 20, 2023 07:33 AM Reporting Lab: [address] [address] Performing Lab: [facility] [address] [address] CHOLESTEROL 228 mg/dL H TRIGLYCERIDE 359 mg/dL H 0-150 LDL calculated Reflex to dLDL mg/dL 0-129 CHOL/HDL 7.4 HDL CHOLESTEROL 31 mg/dL L 40-60 LDL DIRECT 145 mg/dL H Nov 25, 2023 09:22 AM [facility] [facility] LIVER FUNCTION Specimen Type: SERUM No comment entered. Ordering Provider: VENKATA MARES Report Released Date/Time: Nov 20, 2023 07:33 AM Reporting Lab: [facility] [address] [address] Performing Lab: [facility] [address] [address] PROTEIN,TOTAL 7.6 g/dL 6.0-8.3 ALBUMIN 3.9 g/dL 3.5-5.0 ALKALINE PHOSPHATASE 91 U/L 40-150 AST 27 U/L 5-34 ALT 54 U/L BILIRUBIN, TOTAL 0.8 mg/dL 0.2-1.2 Social History: Smoking Status (Most current) and Tobacco Use (All prior to encounter date) This section includes the most current, and the historical, smoking and tobacco- related health factors from the [place] facility where the Encounter took place. Current Smoking Status This section includes the most current smoking, or tobacco-related health factor, from the [place] facility where the Encounter took place. Date/Time Current Smoking Status Comment Ana ity Mar 27, 2022 09:30 AM VA-TOBACCO FORMER USER [facility] [facility] Tobacco Use History This section includes a history of the smoking, or tobacco-related health factors, that were collected on or before the date of the Encounter. The data comes from the [place] facility where the Encounter took place. Date/Time Smoking Status/Tobacco Use Comment F acility Mar 27, 2022 09:30 AM VA-TOBACCO QUIT 15 YRS OR MORE [facility] [facility] Dec 22, 2018 10:29 AM VA-TOBACCO FORMER USER [place] Dec 22, 2018 10:29 AM VA-TOBACCO QUIT 15 YRS OR MORE [place] Mar 19, 2018 11:33 AM VA-TOBACCO FORMER USER [place] Mar 19, 2018 11:33 AM VA-TOBACCO QUIT 15 YRS OR MORE [place] May 13, 2017 01:22 PM QUIT TOBACCO USE > 7 YEARS AGO quit 24 yrs ago [place] Nov 15, 2015 09:48 AM QUIT TOBACCO USE > 7 YEARS AGO States he last smoked 21 years ago [place] Dec 07, 2009 02:51 PM QUIT TOBACCO USE > 7 YEARS AGO [place] Advance Directives: All historical and current Section Date Range: From patient's date of to the date document was created. This section includes ALL of a patient's completed or amended [place] Advance and Rescinded Directives. The entries below indicate that a directive exists for the patient, but an actual copy is not included with this document. The data comes from all [facility]. Date Advance Directives Provider Source May 23, 2011 ADVANCE DIRECTIVE JUD BROOKS Encounter Notes: All associated encounter notes This section contains the clinical notes associated to the Encounter. Date/Time Encounter Note(s) Provider Source Nov 11, 2023 03:14 PM PHARMACY OUTPATIEN T NOTE: LOCAL TITLE: PHARMACY CLINIC NOTE STANDARD TITLE: PHARMACY OUTPATIENT NOTE DATE OF NOTE: NOV 11, 2023@15:14 ENTRY DATE: NOV 11, 2023@15:15:05 AUTHOR: SHANDA BECK COSIGNER: URGENCY: STATUS: COMPLETED PHARMACY CLINIC NOTE Has ADDENDA Demographics: Patient Name: EMERITA BAUTISTA : Sep Age: 57 Sex: MALE Race: BLACK OR REASON FOR EDUCATION VISIT TODAY: Pt was contacted over the telephone to f/up after last visit. Pt states he is doing very well on semaglutide dose of 0.5 mg weekly w/ no ADR's. Pt continues to endure a lot of stress at work. No other medical changes at this time. Per prev: Pt is stressed about work. [...] at work. [facility] [employer] [facility] b/c pt is too busy to come to get [place] from the [place]. pt went to [place] 2 weeks ago for sick call for [...] stressors in his life especially work related. Pt was followed up after he has recently been seen for a sick visit and consequently sent to the ER. Pt states that ER did not find any significant findings and he was released home. He restarted metformin this week at a lower dose which releaved diarrhea per pt's report. Per urgent visit note on 12/16/22: Pt presents at the [facility] for persistent watery diarrhea - 4-5 daily [...] Diabetes Medication Regimen: -- insulin glargine (Semglee) 42 units bid (and split into two seperate injections);Pt did not increase the dose as instructed at the last visit -- Insulin Novolog 25 units TID (B/L/D) -- metformin SA * 750 mg in AM - pt unable to tolerate higher dose GI ADR -- Semaglutide 0.5 mg weekly - pt restarted on 10/17/23 -- empagliflozin 25mg daily in AM - [...] repor the BG readings from his reader. BG readings: Date: 11/10/23 Dexcom G7 7 day average: 183 mg/dl 9% VERY HIGH 30% HIGH 52% IN TARGET RANGE 1% LOW 0% VERY LOW NUTRITION: breakfast: grapefruit; lunch: on a go [...] weight on 07/2023 => 275 lbs ASSESSMENT/PLAN: Reviewed the dexcom G7 upload w/ . Time in target drastically improved from 7% to 52% which is incredible. Congratulated pt on all of his achievements. Pt is tolerating semaglutide very well. Recommend to consider further increasing the dose to 1 mg at the next f/up based on the BG report. Reviewed how to deal w/ stressors. Reviewed nutrition. Next f/up F2F end of the month. DIABETES A1c is above goal of <7% - Medication management Diabetes Diabetes Medication Regimen: -c/t insulin glargine (Semglee) 42 units bid (and [...] H mg/G (03/2022) Most recent visit to community development coordinator: 10/2021 Most recent visit to optometry: 04/2022; Type 2 diabetes mellitus with moderate nonproliferative diabetic retinopathy with macular edema, right eye; Type 2 diabetes mellitus with mild nonproliferative diabetic retinopathy without macular edema, left eye Clinic's Next Scheduled Follow-up: 11/27/23 f2f No barriers; Patient understands and agrees to [...] 17 minutes PBM PharmD Pharmacotherapy Rem V12: PBM PharmD Pharmacotherapy Rem V12: PHARMACIST INTERVENTIONS: TYPE 2 DIABETES MELLITUS Medication monitoring, no dosage change required, continue to monitor and assess /lora/ SHANDA BECK CLINICAL FIELD REP Signed: 11/12/2023 08:38 Receipt Acknowledged By: 11/17/2023 15:12 /lora/ VENKATA MARES MD PRIMARY CARE PHYSICIAN 11/17/2023 ADDENDUM STATUS: COMPLETED The is already on lisinopril /bucky MARES MD PRIMARY CARE PHYSICIAN Signed: 11/17/2023 15:12 SHANDA BECK
--- OUTSIDE RECORDS SUMMARY | 2024-09-30 08:35 | XMS_ITS | Encounter Summary ---
Author Name [facility] [place] [facility] [place] [facility] [facility] [place] Address [address] [place] [address] Care Team Providers Care Oracle Drm Consultant Name Role Phone CHANI RHODES Primary Care [...] to Policy Zayas [employer] DENT[employer] DENTAL INSURANCE [facility] February 03, 2022 [id number] EMERITA BAUTISTA PATIENT [facility] MEDICAID MEDICAID MEDIC AID Oct 06, 2013 MEDICAI D [id number] EMERITA BAUTISTA PATIENT MEDICARE (WNR) MEDICARE (M) PART A Mar 06, 2015 PART A [id number] EMERITA BAUTISTA PATIENT MEDICARE (WNR) MEDICARE (M) PART B Mar 06, 2015 PART B [id number] [phone] EMERITA BAUTISTA PATIENT MEDICARE (WNR) MEDICARE (M) PART B Mar 06, 2015 PART B [id number] EMERITA BAUTISTA PATIENT MEDICARE (WNR) MEDICARE (M) PART A Mar 06, 2015 PART A [id number] EMERITA BAUTISTA PATIENT MEDICARE (WNR) MEDICARE (M) PART B Mar 06, 2015 PART B [id number] EMERITA BAUTISTA PATIENT MEDICARE (WNR) MEDICARE (M) PART B Mar 06, 2015 PART B [id number] EMERITA BAUTISTA PATIENT MEDICARE (WNR) MEDICARE (M) PART A Mar 06, 2015 PART A [id number] EMERITA BAUTISTA PATIENT Selected Encounter This section includes the information on record at [place] for the Encounter. Date/Time Encounter Type Encounter Description Reason Provider Source Nov 27, 2023 10:00 AM MTMS BY PHARM MARY 15 MIN CLINICAL PHARMACY ICD-10-CM E11.9 Type 2 diabetes mellitus without complications VENKATA MARES Encounter Template Text not used by [place] Assessments - Encounter Diagnoses This section includes the primary and secondary diagnoses documented for the Encounter. Date/Time Primary/Secondary Diagnosis Diagnosis Name Provider Source Dec 04, 2023 10:19 AM PRIMARY Type 2 diabetes mellitus without complications TAO BECKFIELD Plan of Treatment: Future Appointments (+ 6 months) and Future Tests (+/- 45 days) The Plan of Treatment section includes future care activities for the patient from all [place] treatmentfacilities. This section includes future appointments and future orders which are active, pending or scheduled. Future Appointments This section includes appointments that were scheduled to occur 6 months from the date of the Encounter, up to a maximum of 20 appointments. The data comes from all [place] treatment facilities. Appointment Date/Time Appointment Type Appointme nt Facility Name Nov 28, 2023 09:00 AM AMBULATORY - MED[facility] Dec 12, 2023 09:15 AM AMBULATORY - MED[facility] Dec 12, 2023 09:30 AM [facility]ULATORY [facility] Dec 25, 2023 07:00 AM [facility] [place] [facility] [place] [facility] Dec 29, 2023 09:30 AM AMBULATORY - MED[facility] February 10, 2024 02:00 PM AMBULATORY [place]ICINE [place] [facility] [place] [facility] Mar 08, 2024 09:00 AM AMBULATORY - MED[facility] Mar 08, 2024 11:30 AM AMBULATORY - NONE [facility] [place] [facility] Mar 22, 2024 02:15 PM AM[facility]ULATORY [place] [facility]INE [place] [facility] [place] [facility] Apr 06, 2024 03:00 PM [facility] [place] [facility] Apr 14, 2024 09:30 AM [facility]ATORY [place] [facility]INE [place] [facility] [place] [facility] Apr 19, 2024 03:00 PM AM[facility]ULATORY [facility] MED[facility] Apr 20, 2024 09:00 AM [facility]ORY [place] [facility] [facility] [place] [facility] Apr 28, 2024 03:00 PM [facility]ULATORY [place] [facility]INE [place] [facility] [place] [facility] May 21, 2024 09:45 AM AM[place]ULATORY [place]INE [place] [facility] [place] [facility] Lab Results: +/- 30 days of the encounter This section includes the Chemistry and Hematology Lab Results on record with [place] for the patient. Radiology Reports and Pathology Reports are provided separately, in subsequent sections. Lab Results This section contains the Chemistry/Hematology Results that were resulted 30 days before or 30 daysafter the date of the Encounter. Date/Time Source Result Type Result - Unit Interpretation Reference Range Comment Nov 27, 2023 10:26 AM [facility] HEMOGLOBIN A1C PANEL Specimen Type: BLOOD Comment: [...] Nov 27, 2023 10:16 AM Reporting [facility] [address] [address] Performing Lab: [facility] [address] [address] HEMOGLOBIN A1C 8.2 H 4.0-5.6 Nov 27, 2023 10:26 AM [facility] CBC Specimen Type: BLOOD No comment entered. Ordering Provider: SHANDA BECK Report Released Date/Time: Nov 27, 2023 10:17 AM Reporting Lab: [address] [address] Performing Lab: [address] [address] WBC 5.30 10*3/uL 4.50-11.00 RBC 5.70 10*6/uL H 4.23-5.66 HGB 17.2 g/dL H 12.8-17 HCT 51.0 H 39.2-50.4 MCV 89.5 fL 82-99 MCHC 33.7 g/dL 30.8-35.1 PLT 131 10*3/uL L 140-360 RDW-CV 12.8 12.0-16.0 MCH 30.2 pg 26.2-32.6 Nov 25, 2023 09:22 AM [facility] MICROALBUMIN CREATININE RATIO PANEL Spe cimen Type: URINE No comment entered. Ordering Provider: VENKATA MARES Report Released Date/Time: Sep 17, 2023 09:09 AM Reporting Lab: [address] [address] Performing Lab: [address] [address] MICROALBUMIN/ CREATININE RATIO 28.1 mg/g 0-29.9 MICROALBUMIN, QUANTITATIVE 2.0 mg/dL RR UNAVAIL CREATININE URINE 71.08 mg/dL Nov 25, 2023 09:22 AM [facility] VITAMIN D 25-OH (Therapy monitor) Speci men [...] For additional information, please refer to http://education .[employer].Convrrt/faq/DYS370 (This link is being provided for informational/ educational purposes only.) This test was developed and its analytical performance characteristics have been determined by [facility] [place], [place]. It has not been cleared or approved by the U.S. Food and Drug Administration. This assay has been validated pursuant to the CLIA regulations and is used for clinical purposes. This test was developed and its analytical performance characteristics have been determined by [facility] [place] [place]. It has not been cleared or approved by the U.S. Food and Drug Administration. This assay has been validated pursuant to the CLIA regulations and is used for clinical purposes. Test Performed by [facility], [facility], [address] [place], [place] Mohit Cazares M.D., Ph.D., Director of Laboratories , CLIA [id number] TEST PERFORMED AT: , Ordering Provider: VENKATA MARES Report Released Date/Time: Nov 20, 2023 07:33 AM Reporting Lab: [address] [address] Performing Lab: [place] [id number] [address] VITAMIN D, 25-OH, TOTAL 9 ng/mL L 30-100 VITAMIN D, 25-OH, D3 9 ng/mL VITAMIN D, 25-OH, D2 <4 ng/mL Nov 25, 2023 09:22 AM [facility] VITAMIN B12 Specimen Type: SERUM No comment entered. Ordering Provider: VENKATA MARES Report Released Date/Time: Nov 20, 2023 07:33 AM Reporting Lab: [address] [address] Performing Lab: [address] [address] VITAMIN B12 815 pg/mL 200-900 Nov 25, 2023 09:22 AM [facility] BASIC METABOLIC PANEL (fasting) Specime n Type: SERUM No comment entered. Ordering Provider: VENKATA MARES Report Released Date/Time: Nov 20, 2023 07:33 AM Reporting Lab: [address] [address] Performing Lab: [address] [address] UREA NITROGEN 15 mg/dL 7-25 GLUCOSE 271 mg/dL H 65-100 SODIUM 139 mmol/L 135-145 POTASSIUM 4.5 mmol/L 3.5-5.0 CHLORIDE 106 mmol/L 100-110 CO2 23 meq/L 20-30 CREATININE, Serum 1.15 mg/dL 0.50-1.40 eGFR(CKD-EPI 2020) 73 mL/min >60 Nov 25, 2023 09:22 AM [facility] LIPID PANEL FASTING Specimen Type: SERUM No comment entered. Ordering Provider: VENKATA MARES Report Released Date/Time: Nov 20, 2023 07:33 AM Reporting Lab: [address] [address] Performing Lab: [address] [address] CHOLESTEROL 228 mg/dL H TRIGLYCERIDE 359 mg/dL H 0-150 LDL calculated Reflex to dLDL mg/dL 0-129 CHOL/HDL 7.4 HDL CHOLESTEROL 31 mg/dL L 40-60 LDL DIRECT 145 mg/dL H Nov 25, 2023 09:22 AM [facility] LIVER FUNCTION Specimen Type: SERUM No comment entered. Ordering Provider: VENKATA MARES Report Released Date/Time: Nov 20, 2023 07:33 AM Reporting Lab: [address] [address] Performing Lab: [address] [address] PROTEIN,TOTAL 7.6 g/dL 6.0-8.3 ALBUMIN 3.9 g/dL 3.5-5.0 ALKALINE PHOSPHATASE 91 U/L 40-150 AST 27 U/L 5-34 ALT 54 U/L BILIRUBIN, TOTAL 0.8 mg/dL 0.2-1.2 Social History: Smoking Status (Most current) and Tobacco Use (All prior to encounter date) This section includes the most current, and the historical, smoking and tobacco- related health factors from the [place] facility where the Encounter took place. Current Smoking Status This section includes the most current smoking, or tobacco-related health factor, from the [place] facility where the Encounter took place. Date/Time Current Smoking Status Comment Facil ity Mar 27, 2022 09:30 AM [place]-TOBACCO FORMER USER [facility] Tobacco Use History This section includes a history of the smoking, or tobacco-related health factors, that were collected on or before the date of the Encounter. The data comes from the [place] facility where the Encounter took place. Date/Time Smoking Status/Tobacco Use Comment F acility Mar 27, 2022 09:30 AM VA-TOBACCO QUIT 15 YRS OR MORE [facility] Dec 22, 2018 10:29 AM VA-TOBACCO FORMER USER [facility] Dec 22, 2018 10:29 AM VA-TOBACCO QUIT 15 YRS OR MORE [facility] Mar 19, 2018 11:33 AM VA-TOBACCO FORMER USER [facility] Mar 19, 2018 11:33 AM VA-TOBACCO QUIT 15 YRS OR MORE [facility] May 13, 2017 01:22 PM QUIT TOBACCO USE > 7 YEARS AGO quit 24 yrs ago [facility] Nov 15, 2015 09:48 AM QUIT TOBACCO USE > 7 YEARS AGO States he last smoked 21 years ago [facility] Dec 07, 2009 02:51 PM QUIT TOBACCO USE > 7 YEARS AGO [facility] Advance Directives: All historical and current Section Date Range: From patient's date of to the date document was created. This section includes ALL of a patient's completed or amended [place] Advance and Rescinded Directives. The entries below indicate that a directive exists for the patient, but an actual copy is not included with this document. The data comes from all [facility]. Date Advance Directives Provider Source May 23, 2011 ADVANCE DIRECTIVE JUD BROOKS Radiology Reports: +/- 30 days of the encounter Radiology Reports For cases when an order for radiology services may have been completed prior to the date of the Encounter, the report list includes the Radiology Reports that were completed up to 30 days before dateof the Encounter. For cases when an order for radiology services may have been completed after the date of the Encounter, the report list also includes the Radiology Reports that were completed up to30 days after date of the Encounter. The data comes from all [place] treatment facilities. 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 (Req'g Loc Img Loc: OUTSIDE GENERAL RADIOLOGY Service: Unknown (Case [id number] COMPLETE) OUTSIDE MRI CERVICAL SPINE (RAD Detailed) CPT:70642 Reason for Study: acute on chronic neck, mid and low back pain with radiation LLE Clinical History: no hx trauma Report Status: Electronically Filed Date Reported: DEC 25, 2023 Report: Community care exam; see CPRS/JLV for outside radiology report/results Impression: Community care exam; see CPRS/JLV for outside radiology report/results Primary Diagnostic Code: VERIFIED BY: / *ELECTRONICALLY FILED* [facility] [place] [facility] Encounter Notes: All associated encounter notes This section contains the clinical notes associated to the Encounter. Date/Time Encounter Note(s) Provider Source Nov 28, 2023 09:07 AM PREVENTIVE MEDICIN E NURSING NOTE: LOCAL TITLE: CLINICAL REMINDERS/NURSING STANDARD TITLE: PREVENTIVE MEDICINE NURSING NOTE DATE OF NOTE: NOV 28, 2023@09:07 ENTRY DATE: NOV 28, 2023@09:07:04 AUTHOR: MANDO COOLEY EXP COSIGNER: URGENCY: STATUS: COMPLETED Depression Screening: Perform PHQ-2 A PHQ-2 screen was performed. The score was 0 which is a negative screen for depression. Over the past two weeks, how often have you been bothered by the following problems? 1. Little interest or pleasure in doing things Not at all 2. Feeling down, depressed, or hopeless Not at all Pneumococcal Conjugate Vaccine (PCV15/PCV20): Refuses PCV vaccine Immunization: PNEUMOCOCCAL CONJUGATE, UNSPECIFIED FORMULATION Refusal Reason: PATIENT DECISION Patient refuses all immunization(s) in the PneumoPCV group Date Documented: 11/28/23 09:07 Influenza Immunization: The patient declines to receive the recommended dose of seasonal influenza vaccine. Immunization: INFLUENZA, UNSPECIFIED FORMULATION Refusal Reason: PATIENT DECISION Patient refuses all immunization(s) in the FLU group Date Documented: 11/28/23 09:08 Td / Tdap Immunization: The patient declines to receive the recommended dose of Td/Tdap vaccine. Immunization: TD(ADULT) UNSPECIFIED FORMULATION Refusal Reason: PATIENT DECISION Patient refuses all immunization(s) in the Td group Date Documented: 11/28/23 09:08 RHS Screen: RHS Screen Environmental Check Upon inquiry, the individual reports that the environment is safe to proceed. Informed Consent to Screen and Document The individual consents to proceed with screening. The individual consents to documentation of responses. PRIMARY SCREEN: In the past 12 months, how often did a current or former intimate partner (e.g., boyfriend, girlfriend, , , sexual partner): 1. Scream or curse at you Never 2. Insult or talk down to you Never 3. Threaten you with harm Never 4. Physically hurt you Never 5. Force or pressure you to have sexual contact against your will, or when you were unable to say no Never ?? The HITS tool (items 1-4 above) is [place] copyright protected by Rishabh Nieves MD, and the user has full rights to use it throughout the [place] system. PRIMARY SCREEN RESULT: The Primary Screen is NEGATIVE. The individual answered never to all forms of IPV above (i.e., answered never to all 5 items) The individual accepts education and/or resources: No EDUCATION: The individual indicated readiness to learn. Education offered during this session as noted above. The individual indicated understanding by asking relevant questions and making appropriate comments. No barriers to learning were observed or identified. /lora/ MANDO COOLEY LPN Licensed Practical Nurse Signed: 11/28/2023 09:09 MANDO COOLEY Nov 27, 2023 10:09 AM PHARMACY OUTPATIEN T NOTE: LOCAL TITLE: PHARMACY CLINIC NOTE STANDARD TITLE: PHARMACY OUTPATIENT NOTE DATE OF NOTE: NOV 27, 2023@10:09 ENTRY DATE: NOV 27, 2023@10:09:49 AUTHOR: SHANDA BECK COSIGNER: URGENCY: STATUS: COMPLETED Demographics: Patient Name: EMERITA BAUTISTA : Sep Age: 57 Sex: MALE Race: BLACK OR REASON FOR EDUCATION VISIT TODAY: Pt presents for a f/up. He states he has been demoted at work and he is not too happpy about it. He is admitting however that new position will have less stressors associated with it. Per prev: Pt was contacted over the telephone to [...] running high and [facility]. Per prev: Pt presents [...] at work. He has [facility] [employer] [facility] b/c pt is too busy to come to get ozepic from the [place]. pt went to [place] 2 weeks ago for sick call for [...] note on 12/16/22: Pt [facility] at the [facility] for persistent watery diarrhea - 4-5 [...] TARGET RANGE 1% LOW 0% VERY LOW Date: 11/27/23 Dexcom G7 14 day avgt: 232 mg/dl; 32% VERY HIGH 55% HIGH 13% IN RANGE 0% LOW 0% VERY LOW sensor usage: 93% NUTRITION: breakfast: grapefruit; lunch: on a go [...] lbs weight on 07/2023 => 275 lbs 11/2023 => 277 lbs ASSESSMENT/PLAN: Reviewed the dexcom G7 upload w/ [place]. Time in target drastically reduced to 13%. Recommend to increase insulin glargine along with increasing semaglutide. Goal will be to titrated ozmepic to 2 mg weekly if tolerated. Pt appears to have high level of insulin resistance. Pt also struggles w/ medication adherence. Pt did not take statin for a while ? Recommended to restart statin JUSTIN. Pt's cholesterol panel highly elevated. f/up soon to evaluate progress. 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 If he has any questions, concerns, or changes in current health status he will call or come [facility] to the [facility]. PBM PharmD Pharmacotherapy Rem V12: PHARMACIST INTERVENTIONS: TYPE 2 DIABETES MELLITUS Medication Intervention(s) Adjust dose or frequency of current medication due to other reason Plan: increase dose of insulin glargine and semaglutide Medication monitoring, no dosage change required, continue to monitor and assess /lora/ SHANDA BECK CLINICAL INTEGRATION CONSULTANT Signed: 12/01/2023 07:46 Receipt Acknowledged By: 12/16/2023 12:24 /es/ VENKATA MARES MD PRIMARY CARE PHYSICIAN SHANDA BECK
--- OUTSIDE RECORDS SUMMARY | 2024-09-30 08:35 | XMS_ITS | Encounter Summary ---
Author Name [place] Address [address] [place] [address] Care Team Providers Care Team Assistant Name Role Phone CHANI RHODES Primary Care [...] [facility] February 03, 2022 [id number] EMERITA BAUTISTA PATIENT [facility] MEDICAID MEDICAID MEDIC AID Oct 06, 2013 MEDICAI D [id number] EMERITA BAUTISTA PATIENT MEDICARE (WNR) MEDICARE (M) PART A Mar 06, 2015 PART A [id number] EMERITA BAUTISTA PATIENT MEDICARE (WNR) MEDICARE (M) PART B Mar 06, 2015 PART B [id number] [phone] EMERITA BAUTISTA PATIENT MEDICARE (WNR) MEDICARE (M) PART B Mar 06, 2015 PART B [id number] [phone] EMERITA BAUTISTA PATIENT MEDICARE (WNR) MEDICARE (M) PART A Mar 06, 2015 PART A [id number] EMERITA BAUTISTA PATIENT MEDICARE (WNR) MEDICARE (M) PART B Mar 06, 2015 PART B [id number] EMERITA BAUTISTA PATIENT MEDICARE (WNR) MEDICARE (M) PART B Mar 06, 2015 PART B [id number] [phone] EMERITA BAUTISTA PATIENT MEDICARE (WNR) MEDICARE (M) PART A Mar 06, 2015 PART A [id number] [phone] EMERITA BAUTISTA PATIENT Selected Encounter This section includes the information on record at [place] for the Encounter. Date/Time Encounter Type Encounter Description Reason Pro vider Source Nov 13, 2023 03:59 PM Outpatient Encounter PRIMARY CARE/MEDICINE IHE Encounter Template Text not used by [place] Plan of Treatment: Future Appointments (+ 6 months) and Future Tests (+/- 45 days) The Plan of Treatment section includes future care activities for the patient from all [place] treatmentfacilities. This section includes future appointments and future orders which are active, pending or scheduled. Future Appointments This section includes appointments that were scheduled to occur 6 months from the date of the Encounter, up to a maximum of 20 appointments. The data comes from all [place] treatment facilities. Appointment Date/Time Appointment Type Appointme nt Facility Name Nov 27, 2023 10:00 AM AM[place]ULATORY [place]ICINE [place] [facility] [place] [facility] Nov 28, 2023 09:00 AM [facility] Dec 12, 2023 09:15 AM [facility] Dec 12, 2023 09:30 AM [facility] - [facility]ICINE [facility] Dec 25, 2023 07:00 AM AM[place]ULATORY [place]ICINE [place] [facility] [place] [facility] Dec 29, 2023 09:30 AM [facility]ORY - MEDICINE [facility] February 10, 2024 02:00 PM AMBULATORY [place]ICINE [place] [facility] [place] [facility] Mar 08, 2024 09:00 AM [facility]ATORY - [facility]ICINE [facility] Mar 08, 2024 11:30 AM AMBULATORY - NONE [place] [facility] [place] [facility] Mar 22, 2024 02:15 PM AMBULATORY - MEDICINE [place] [facility] [facility] Apr 06, 2024 03:00 PM AMBULATORY - [place]ICINE [place] [facility] [place] [place] [facility] Apr 14, 2024 09:30 AM AMBULATORY [place]ICINE [place] [facility] [facility] Apr 19, 2024 03:00 PM AMBULATORY - MEDICINE [facility] Apr 20, 2024 09:00 AM AMBULATORY - [place]ICINE [place] [facility] [place] [facility] Apr 28, 2024 03:00 PM AMBULATORY [place]ICINE [place] [facility] [facility] Lab Results: +/- 30 days of the encounter This section includes the Chemistry and Hematology Lab Results on record with [place] for the patient. Radiology Reports and Pathology Reports are provided separately, in subsequent sections. Lab Results This section contains the Chemistry/Hematology Results that were resulted 30 days before or 30 daysafter the date of the Encounter. Date/Time Source Result Type Result - Unit Interpretation Reference Range Comment Nov 27, 2023 10:26 AM [facility] HEMOGLOBIN A1C PANEL Specimen Type: BLOOD [...] Nov 27, 2023 10:16 AM Reporting Lab: [facility] [address] [address] Performing Lab: [facility] [address] HEMOGLOBIN A1C 8.2 H 4.0-5.6 Nov 27, 2023 10:26 AM [facility] CBC Specimen Type: BLOOD No comment entered. Ordering Provider: SHANDA BECK Report Released Date/Time: Nov 27, 2023 10:17 AM Reporting Lab: [facility] [address] [address] Performing Lab: [facility] [address] [place] [address] WBC 5.30 10*3/uL 4.50-11.00 RBC 5.70 10*6/uL H 4.23-5.66 HGB 17.2 g/dL H 12.8-17 HCT 51.0 H 39.2-50.4 MCV 89.5 fL 82-99 MCHC 33.7 g/dL 30.8-35.1 PLT 131 10*3/uL L 140-360 RDW-CV 12.8 12.0-16.0 MCH 30.2 pg 26.2-32.6 Nov 25, 2023 09:22 AM [facility] MICROALBUMIN CREATININE RATIO PANEL Spe cimen Type: URINE No comment entered. Ordering Provider: VENKATA MARES Report Released Date/Time: Sep 17, 2023 09:09 AM Reporting Lab: [address] [address] Performing Lab: [address] [address] MICROALBUMIN/ CREATININE RATIO 28.1 mg/g 0-29.9 MICROALBUMIN, QUANTITATIVE 2.0 mg/dL RR UNAVAIL CREATININE URINE 71.08 mg/dL Nov 25, 2023 09:22 AM [facility] VITAMIN D 25-OH (Therapy monitor) Speci men [...] For additional information, please refer to http://education .Exec.Innovacene/faq/UAG187 (This link is being provided for informational/ educational purposes only.) This test was developed and its analytical performance characteristics have been determined by [employer] [place], [place]. It has not been cleared or approved by the U.S. Food and Drug Administration. This assay has been validated pursuant to the CLIA regulations and is used for clinical purposes. This test was developed and its analytical performance characteristics have been determined by [employer] [place], [place]. It has not been cleared or approved by the U.S. Food and Drug Administration. This assay has been validated pursuant to the CLIA regulations and is used for clinical purposes. Test Performed by [facility], [employer] [facility], [address] [place] [address] Mohit Cazares M.D., Ph.D., Director of Laboratories , CLIA [id number] TEST PERFORMED AT: , Ordering Provider: VENKATA MARES Report Released Date/Time: Nov 20, 2023 07:33 AM Reporting Lab: [address] [address] Performing Lab: [facility] [address] [address] VITAMIN D, 25-OH, TOTAL 9 ng/mL L 30-100 VITAMIN D, 25-OH, D3 9 ng/mL VITAMIN D, 25-OH, D2 <4 ng/mL Nov 25, 2023 09:22 AM [facility] VITAMIN B12 Specimen Type: SERUM No comment entered. Ordering Provider: VENKATA MARES Report Released Date/Time: Nov 20, 2023 07:33 AM Reporting Lab: [address] [address] Performing Lab: [address] [address] VITAMIN B12 815 pg/mL 200-900 Nov 25, 2023 09:22 AM [facility] LIPID PANEL FASTING Specimen Type: SERUM No comment entered. Ordering Provider: VENKATA MARES Report Released Date/Time: Nov 20, 2023 07:33 AM Reporting Lab: [address] [address] Performing Lab: [address] [address] CHOLESTEROL 228 mg/dL H TRIGLYCERIDE 359 mg/dL H 0-150 LDL calculated Reflex to dLDL mg/dL 0-129 CHOL/HDL 7.4 HDL CHOLESTEROL 31 mg/dL L 40-60 LDL DIRECT 145 mg/dL H Nov 25, 2023 09:22 AM [facility] LIVER FUNCTION Specimen Type: SERUM No comment entered. Ordering Provider: VENKATA MARES Report Released Date/Time: Nov 20, 2023 07:33 AM Reporting Lab: [facility] [address] [facility] [address] Performing Lab: [address] [address] PROTEIN,TOTAL 7.6 g/dL 6.0-8.3 ALBUMIN 3.9 g/dL 3.5-5.0 ALKALINE PHOSPHATASE 91 U/L 40-150 AST 27 U/L 5-34 ALT 54 U/L BILIRUBIN, TOTAL 0.8 mg/dL 0.2-1.2 Nov 25, 2023 09:22 AM [facility] BASIC METABOLIC PANEL (fasting) Specime n Type: SERUM No comment entered. Ordering Provider: VENKATA MARES Report Released Date/Time: Nov 20, 2023 07:33 AM Reporting Lab: [facility] [address] [facility] [address] Performing Lab: [address] [address] UREA NITROGEN 15 mg/dL 7-25 GLUCOSE 271 mg/dL H 65-100 SODIUM 139 mmol/L 135-145 POTASSIUM 4.5 mmol/L 3.5-5.0 CHLORIDE 106 mmol/L 100-110 CO2 23 meq/L 20-30 CREATININE, Serum 1.15 mg/dL 0.50-1.40 eGFR(CKD-EPI 2020) 73 mL/min >60 Social History: Smoking Status (Most current) and Tobacco Use (All prior to encounter date) This section includes the most current, and the historical, smoking and tobacco- related health factors from the [place] facility where the Encounter took place. Current Smoking Status This section includes the most current smoking, or tobacco-related health factor, from the [place] facility where the Encounter took place. Date/Time Current Smoking Status Comment Facil tash Mar 11, 2023 08:30 AM [place]-TOBACCO FORMER USER [facility] Tobacco Use History This section includes a history of the smoking, or tobacco-related health factors, that were collected on or before the date of the Encounter. The data comes from the [place] facility where the Encounter took place. Date/Time Smoking Status/Tobacco Use Comment F acility Mar 11, 2023 08:30 AM [place]-TOBACCO QUIT 15 YRS OR MORE [facility] Dec 27, 2020 02:00 PM [place]-TOBACCO FORMER USER [facility] Dec 27, 2020 02:00 PM [place]-TOBACCO QUIT 15 YRS OR MORE [facility] Advance Directives: All historical and current Section Date Range: From patient's date of to the date document was created. This section includes ALL of a patient's completed or amended [place] Advance and Rescinded Directives. The entries below indicate that a directive exists for the patient, but an actual copy is not included with this document. The data comes from all [place] facilities. Date Advance Directives Provider Source May 23, 2011 ADVANCE DIRECTIVE JUD BROOKS Encounter Notes: All associated encounter notes This section contains the clinical notes associated to the Encounter. 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 WITH CWM/SO/PACT EIGHT PROVIDER ON 11/28/2023 AT 9:00AM FOR HTN, HLP, LOW D, HYPERGLYCEMIA. ALSO REMINDED TO COMPLETE FASTING LABS PRIOR TO APPT. DATE. /lora/ CLAUDE VIZCAINO ADVANCED MUSICIAN INSTRUMENTAL Signed: 11/13/2023 16:01 CLAUDE VIZCAINO
--- OUTSIDE RECORDS SUMMARY | 2024-09-30 08:36 | XMS_ITS | Encounter Summary ---
Author Name [facility] [place] Address [address] [place] [address] Care Team Providers Care Sharepoint Engineer Name Role Phone CHANI RHODES Primary Care [...] [facility] February 03, 2022 [id number] [phone] EMERITA BAUTISTA PATIENT [facility] MEDICAID MEDICAID MEDIC AID Oct 06, 2013 MEDICAI D [id number] EMERITA BAUTISTA PATIENT MEDICARE (WNR) MEDICARE (M) PART A Mar 06, 2015 PART A [id number] EMERITA BAUTISTA PATIENT MEDICARE (WNR) MEDICARE (M) PART B Mar 06, 2015 PART B [id number] EMERITA BAUITSTA PATIENT MEDICARE (WNR) MEDICARE (M) PART B Mar 06, 2015 PART B [id number] [phone] EMERITA BAUTISTA PATIENT MEDICARE (WNR) MEDICARE (M) PART A Mar 06, 2015 PART A [id number] [phone] EMERITA BAUTISTA PATIENT MEDICARE (WNR) MEDICARE (M) PART B Mar 06, 2015 PART B [id number] EMERITA BAUTISTA PATIENT MEDICARE (WNR) MEDICARE (M) PART B Mar 06, 2015 PART B [id number] [phone] EMERITA BAUTISTA PATIENT MEDICARE (WNR) MEDICARE (M) PART A Mar 06, 2015 PART A [id number] [phone] EMERITA BAUTISTA PATIENT Selected Encounter This section includes the information on record at CT for the Encounter. Date/Time Encounter Type Encounter Description Reason Pro vider Source Dec 15, 2023 12:50 PM Outpatient Encounter PRIMARY CARE/MEDICINE IHE Encounter Template Text not used by CT Plan of Treatment: Future Appointments (+ 6 months) and Future Tests (+/- 45 days) The Plan of Treatment section includes future care activities for the patient from all [place] treatmentfacilities. This section includes future appointments and future orders which are active, pending or scheduled. Future Appointments This section includes appointments that were scheduled to occur 6 months from the date of the Encounter, up to a maximum of 20 appointments. The data comes from all [place] treatment facilities. Appointment Date/Time Appointment Type Appointme nt Facility Name Dec 25, 2023 07:00 AM AMBULATORY - MEDICINE [place] [facility] [place] [facility] Dec 29, 2023 09:30 AM [facility] February 10, 2024 02:00 PM AMBULATORY - MEDICINE [place] [facility] [place] [facility] Mar 08, 2024 09:00 AM [facility] Mar 08, 2024 11:30 AM AMBULATORY - NONE [facility] [place] [facility] Mar 22, 2024 02:15 PM AMBULATORY - MEDICINE [place] [facility] [place] [facility] Apr 06, 2024 03:00 PM AMBULATORY - MEDICINE [place] [facility] [place] [facility] Apr 14, 2024 09:30 AM AMBULATORY - MEDICINE [place] [facility] [place] [facility] Apr 19, 2024 03:00 PM [facility] Apr 20, 2024 09:00 AM AMBULATORY - MEDICINE [facility] [place] [place] [facility] Apr 28, 2024 03:00 PM AMBULATORY - MEDICINE [facility] C [facility] [place] [facility] May 21, 2024 09:45 AM AMBULATORY - MEDICINE [place] [facility] [place] [facility] Jun 10, 2024 09:30 AM [facility] Lab Results: +/- 30 days of the encounter This section includes the Chemistry and Hematology Lab Results on record with CT for the patient. Radiology Reports and Pathology Reports are provided separately, in subsequent sections. Lab Results This section contains the Chemistry/Hematology Results that were resulted 30 days before or 30 daysafter the date of the Encounter. Date/Time Source Result Type Result - Unit Interpretation Reference Range Comment Nov 27, 2023 10:26 AM [facility] HEMOGLOBIN A1C PANEL Specimen Type: BLOOD Comment: [...] Nov 27, 2023 10:16 AM Reporting Lab: [facility] [address] [facility] [address] Performing Lab: [facility] [address] HEMOGLOBIN A1C 8.2 H 4.0-5.6 Nov 27, 2023 10:26 AM [facility] CBC Specimen Type: BLOOD No comment entered. Ordering Provider: SHANDA BECK Report Released Date/Time: Nov 27, 2023 10:17 AM Reporting Lab: [facility] [address] [facility] [address] Performing Lab: [facility] [address] [address] WBC 5.30 10*3/uL 4.50-11.00 RBC 5.70 10*6/uL H 4.23-5.66 HGB 17.2 g/dL H 12.8-17 HCT 51.0 H 39.2-50.4 MCV 89.5 fL 82-99 MCHC 33.7 g/dL 30.8-35.1 PLT 131 10*3/uL L 140-360 RDW-CV 12.8 12.0-16.0 MCH 30.2 pg 26.2-32.6 Nov 25, 2023 09:22 AM [place] MICROALBUMIN CREATININE RATIO PANEL Spe cimen Type: URINE No comment entered. Ordering Provider: RAISA MARES Report Released Date/Time: Sep 17, 2023 09:09 AM Reporting Lab: [facility] [address] [facility] [address] Performing Lab: [facility] [address] [facility] [address] MICROALBUMIN/ CREATININE RATIO 28.1 mg/g 0-29.9 MICROALBUMIN, QUANTITATIVE 2.0 mg/dL RR UNAVAIL CREATININE URINE 71.08 mg/dL Nov 25, 2023 09:22 AM [place] VITAMIN D 25-OH (Therapy monitor) Speci men [...] For additional information, please refer to http://education .iLinc.Kippt/faq/VLY968 (This link is being provided for informational/ educational purposes only.) This test was developed and its analytical performance characteristics have been determined by [employer] [place], [place]. It has not been cleared or approved by the U.S. Food and Drug Administration. This assay has been validated pursuant to the CLIA regulations and is used for clinical purposes. This test was developed and its analytical performance characteristics have been determined by [employer] [place], [place]. It has not been cleared or approved by the U.S. Food and Drug Administration. This assay has been validated pursuant to the CLIA regulations and is used for clinical purposes. Test Performed by [employer] [facility], [facility], [address] [place] [address] Mohit Cazares M.D., Ph.D., Director of Laboratories , CLIA [id number] TEST PERFORMED AT: , Ordering Provider: RAISA MARES Report Released Date/Time: Nov 20, 2023 07:33 AM Reporting Lab: [address] [address] Performing Lab: [facility] [address] [address] VITAMIN D, 25-OH, TOTAL 9 ng/mL L 30-100 VITAMIN D, 25-OH, D3 9 ng/mL VITAMIN D, 25-OH, D2 <4 ng/mL Nov 25, 2023 09:22 AM [place] LIPID PANEL FASTING Specimen Type: SERUM No comment entered. Ordering Provider: RAISA MARES Report Released Date/Time: Nov 20, 2023 07:33 AM Reporting Lab: [facility] [address] [facility] [address] Performing Lab: [address] [address] CHOLESTEROL 228 mg/dL H TRIGLYCERIDE 359 mg/dL H 0-150 LDL calculated Reflex to dLDL mg/dL 0-129 CHOL/HDL 7.4 HDL CHOLESTEROL 31 mg/dL L 40-60 LDL DIRECT 145 mg/dL H Nov 25, 2023 09:22 AM [place] BASIC METABOLIC PANEL (fasting) Specime n Type: SERUM No comment entered. Ordering Provider: RAISA MARES Report Released Date/Time: Nov 20, 2023 07:33 AM Reporting Lab: [facility] [address] [address] Performing Lab: [address] [address] UREA NITROGEN 15 mg/dL 7-25 GLUCOSE 271 mg/dL H 65-100 SODIUM 139 mmol/L 135-145 POTASSIUM 4.5 mmol/L 3.5-5.0 CHLORIDE 106 mmol/L 100-110 CO2 23 meq/L 20-30 CREATININE, Serum 1.15 mg/dL 0.50-1.40 eGFR(CKD-EPI 2020) 73 mL/min >60 Nov 25, 2023 09:22 AM [place] LIVER FUNCTION Specimen Type: SERUM No comment entered. Ordering Provider: RAISA MARES Report Released Date/Time: Nov 20, 2023 07:33 AM Reporting Lab: [address] [address] Performing Lab: [address] [address] PROTEIN,TOTAL 7.6 g/dL 6.0-8.3 ALBUMIN 3.9 g/dL 3.5-5.0 ALKALINE PHOSPHATASE 91 U/L 40-150 AST 27 U/L 5-34 ALT 54 U/L BILIRUBIN, TOTAL 0.8 mg/dL 0.2-1.2 Nov 25, 2023 09:22 AM [place] VITAMIN B12 Specimen Type: SERUM No comment entered. Ordering Provider: RAISA MARES Report Released Date/Time: Nov 20, 2023 07:33 AM Reporting Lab: [address] [address] Performing Lab: [address] [address] VITAMIN B12 815 pg/mL 200-900 Social History: Smoking Status (Most current) and Tobacco Use (All prior to encounter date) This section includes the most current, and the historical, smoking and tobacco- related health factors from the [place] facility where the Encounter took place. Current Smoking Status This section includes the most current smoking, or tobacco-related health factor, from the [place] facility where the Encounter took place. Date/Time Current Smoking Status Comment Facil tash Mar 11, 2023 08:30 AM [place]-TOBACCO FORMER USER [facility] Tobacco Use History This section includes a history of the smoking, or tobacco-related health factors, that were collected on or before the date of the Encounter. The data comes from the CT facility where the Encounter took place. Date/Time Smoking Status/Tobacco Use Comment F acility Mar 11, 2023 08:[address]-TOBACCO QUIT 15 YRS OR MORE [facility] Dec 27, 2020 02:[address]-TOBACCO FORMER USER [facility] Dec 27, 2020 02:[address]-TOBACCO QUIT 15 YRS OR MORE [facility] Advance Directives: All historical and current Section Date Range: From patient's date of to the date document was created. This section includes ALL of a patient's completed or amended CT Advance and Rescinded Directives. The entries below indicate that a directive exists for the patient, but an actual copy is not included with this document. The data comes from all CT facilities. Date Advance Directives Provider Source May [...] the Encounter. The data comes from all CT treatment facilities. Date/Time Radiology Report Provider Source Dec 25, 2023 07:00 AM OUTSIDE MRI CERVIC AL SPINE: EMERITA BAUTISTA [id number] -1965 M Ex Date: DEC 25, 2023@07:00 Req Phys: CHANI RHODES Loc: [facility]/SO/SICK CALL UNIT SECRETARY (Req'g Loc Img Loc: OUTSIDE GENERAL RADIOLOGY Service: Unknown (Case [id number] COMPLETE) OUTSIDE MRI CERVICAL SPINE (RAD Detailed) CPT:13667 Reason for Study: acute on chronic neck, mid and low back pain with radiation LLE Clinical History: no hx trauma Report Status: Electronically Filed Date Reported: DEC 25, 2023 Report: Community care exam; see CPRS/JLV for outside radiology report/results Impression: Community care exam; see CPRS/JLV for outside radiology report/results Primary Diagnostic Code: VERIFIED BY: / *ELECTRONICALLY FILED* [facility] [place] [place] [facility] Encounter Notes: All associated encounter notes This section contains the clinical notes associated to the Encounter. Date/Time Encounter Note(s) Provider Source Dec 15, 2023 12:50 PM LETTERS: LOCAL TITLE: PATIENT LETTER (T) STANDARD TITLE: LETTERS DATE OF NOTE: DEC 15, 2023@12:50 ENTRY DATE: DEC 15, 2023@12:50:58 AUTHOR: RAISA MARES COSIGNER: URGENCY: STATUS: COMPLETED PATIENT LETTER (T) Has ADDENDA DEPARTMENT OF [facility] Toll Free Number Primary Care Telephone Assistance can be reached at extension [phone] [facility] scheduling can be reached at extension [phone] [facility] scheduling can be reached at ext [phone], [address] Dear , Your vitamin D level is lower than normal limits and I prescribed supplements for you which will be mailed to your house. If you have any questions please call our office back Friday to Friday from 8 AM to 4 PM; the phone number is [phone]. Sincerely, Dr. Raisa Mares 12/15/2023 ADDENDUM STATUS: COMPLETED THIS PRIMARY HEALTH ORGANISATION MANAGER MAILED LETTER TO . /lora/ CLAUDE VIZCAINO ADVANCED SOIL SORT WORKER Signed: 12/15/2023 14:43 Sincerely, Your Primary Care Team [facility] [address] [facility] [address] [place] [address] [place] [address] [phone] [facility] [address] [place] [address] [place] [address] [phone] [facility] [address] [facility] [place] [address] [place] [address] RAISA MARESFIELD
--- OUTSIDE RECORDS SUMMARY | 2024-09-30 08:36 | XMS_ITS | Encounter Summary ---
Author Name [facility] [place] [facility] [place] [facility] [place] [facility] [place] Address [address] [place] [address] Care Team Providers Care Pit Inspector Name Role Phone MARELY WILKES Primary Care Provider Unavailabl e Insurance Providers: [...] to Policy Zayas [employer]URANCE [facility] February 03, 2022 [id number] EMERITA BAUTISTA PATIENT [facility] MEDICAID MEDICAID MEDIC AID Oct 06, 2013 MEDICAI D [id number] EMERITA BAUTISTA PATIENT MEDICARE (WNR) MEDICARE (M) PART A Mar 06, 2015 PART A [id number] EMERITA BAUTISTA PATIENT MEDICARE (WNR) MEDICARE (M) PART B Mar 06, 2015 PART B [id number] [phone] EMERITA BAUTISTA PATIENT MEDICARE (WNR) MEDICARE (M) PART B Mar 06, 2015 PART B [id number] EMERITA BAUTISTA PATIENT MEDICARE (WNR) MEDICARE (M) PART A Mar 06, 2015 PART A [id number] EMERITA BAUTISTA PATIENT MEDICARE (WNR) MEDICARE (M) PART B Mar 06, 2015 PART B [id number] [phone] EMERITA BAUTISTA PATIENT MEDICARE (WNR) MEDICARE (M) PART B Mar 06, 2015 PART B [id number] EMERITA BAUTISTA PATIENT MEDICARE (WNR) MEDICARE (M) PART A Mar 06, 2015 PART A [id number] EMERITA BAUTISTA PATIENT Selected Encounter This section includes the information on record at [place] for the Encounter. Date/Time Encounter Type Encounter Description Reason Provider Source Dec 12, 2023 09:30 AM OFFICE O/P EST MOD 30 MIN PRIMARY CARE/MEDICINE ICD-10-CM M54.50 Low back pain, unspecified MARELY WILKES Encounter Template Text not used by [place] Assessments - Encounter Diagnoses This section includes the primary and secondary diagnoses documented for the Encounter. Date/Time Primary/Secondary Diagnosis Diagnosis Name Provider Source Dec 12, 2023 10:31 AM PRIMARY Low back pain, unspecified MARELY WILKES Dec 12, 2023 10:31 AM SECONDARY Cervicalgia MARELY WILKES Dec 12, 2023 10:31 AM SECONDARY Lumbago with sciatica, left side MARELY WILKES Dec 12, 2023 10:31 AM SECONDARY Muscle spasm of back MARELY WILKES Dec 12, 2023 10:31 AM SECONDARY Pain in thoracic spine MARELY WILKES Plan of Treatment: Future Appointments (+ 6 months) and Future Tests (+/- 45 days) The Plan of Treatment section includes future care activities for the patient from all [place] treatmentfacilities. This section includes future appointments and future orders which are active, pending or scheduled. Future Appointments This section includes appointments that were scheduled to occur 6 months from the date of the Encounter, up to a maximum of 20 appointments. The data comes from all [place] treatment facilities. Appointment Date/Time Appointment Type Appointme nt Facility Name Dec 25, 2023 07:00 AM AMBULATORY - MEDICINE [facility] Dec 29, 2023 09:30 AM [facility] MEDICINE [facility] February 10, 2024 02:00 PM AMBULATORY [facility] MEDICINE [facility] [place] [facility] Mar 08, 2024 09:00 AM AM[facility]ULATORY - MEDICINE [facility] Mar 08, 2024 11:30 AM AMBULATORY - NONE [facility] [place] [facility] Mar 22, 2024 02:15 PM AMBULATORY - MEDICINE [facility] [place] [facility] Apr 06, 2024 03:00 PM AMBULATORY - MEDICINE [facility] [place] [facility] Apr 14, 2024 09:30 AM AMBULATORY - MEDICINE [facility] [place] [facility] Apr 19, 2024 03:00 PM AMBULATORY - MEDICINE [facility] Apr 20, 2024 09:00 AM AMBULATORY - MEDICINE [facility] [place] [facility] Apr 28, 2024 03:00 PM AMBULATORY - MEDICINE [facility] [place] [facility] May 21, 2024 09:45 AM AMBULATORY - MEDICINE [facility] [place] [facility] Jun 10, 2024 09:30 AM AMBULATORY - MEDICINE [facility] [place] [facility] Lab Results: +/- 30 days of the encounter This section includes the Chemistry and Hematology Lab Results on record with [place] for the patient. Radiology Reports and Pathology Reports are provided separately, in subsequent sections. Lab Results This section contains the Chemistry/Hematology Results that were resulted 30 days before or 30 daysafter the date of the Encounter. Date/Time Source Result Type Result - Unit Interpretation Reference Range Comment Nov 27, 2023 10:26 AM [facility] HEMOGLOBIN A1C PANEL Specimen Type: BLOOD [...] Nov 27, 2023 10:16 AM Reporting Lab: [facility] [place] [address] [address] Performing Lab: [facility] [address] [address] HEMOGLOBIN A1C 8.2 H 4.0-5.6 Nov 27, 2023 10:26 AM [facility] CBC Specimen Type: BLOOD No comment entered. Ordering Provider: SHANDA BECK Report Released Date/Time: Nov 27, 2023 10:17 AM Reporting Lab: [facility] [address] [address] Performing Lab: [facility] [address] [address] WBC 5.30 10*3/uL 4.50-11.00 RBC 5.70 10*6/uL H 4.23-5.66 HGB 17.2 g/dL H 12.8-17 HCT 51.0 H 39.2-50.4 MCV 89.5 fL 82-99 MCHC 33.7 g/dL 30.8-35.1 PLT 131 10*3/uL L 140-360 RDW-CV 12.8 12.0-16.0 MCH 30.2 pg 26.2-32.6 Nov 25, 2023 09:22 AM [facility] MICROALBUMIN CREATININE RATIO PANEL Spe cimen Type: URINE No comment entered. Ordering Provider: VENKATA MARES Report Released Date/Time: Sep 17, 2023 09:09 AM Reporting Lab: [facility] [address] [address] [facility] [address] Performing Lab: [address] [address] MICROALBUMIN/ CREATININE RATIO 28.1 mg/g 0-29.9 MICROALBUMIN, QUANTITATIVE 2.0 mg/dL RR UNAVAIL CREATININE URINE 71.08 mg/dL Nov 25, 2023 09:22 AM [facility] VITAMIN D 25-OH (Therapy monitor) Speci men [...] For additional information, please refer to http://education .TalkyLand/faq/VGG394 (This link is being provided for informational/ educational purposes only.) This test was developed and its analytical performance characteristics have been determined by [facility] [place]. It has not been cleared or approved by the U.S. Food and Drug Administration. This assay has been validated pursuant to the CLIA regulations and is used for clinical purposes. This test was developed and its analytical performance characteristics have been determined by [facility] [place] [place]. It has not been cleared or approved by the U.S. Food and Drug Administration. This assay has been validated pursuant to the CLIA regulations and is used for clinical purposes. Test Performed by [facility], [facility], [address] [place] [address] Mohit Cazares M.D., Ph.D., Director of Laboratories , CLIA [id number] TEST PERFORMED AT: , Ordering Provider: VENKATA MARES Report Released Date/Time: Nov 20, 2023 07:33 AM Reporting Lab: [address] [address] Performing Lab: [address] [address] VITAMIN D, 25-OH, TOTAL 9 ng/mL L 30-100 VITAMIN D, 25-OH, D3 9 ng/mL VITAMIN D, 25-OH, D2 <4 ng/mL Nov 25, 2023 09:22 AM [facility] VITAMIN B12 Specimen Type: SERUM No comment entered. Ordering Provider: VENKATA MARES Report Released Date/Time: Nov 20, 2023 07:33 AM Reporting Lab: [address] [address] Performing Lab: [address] [address] VITAMIN B12 815 pg/mL 200-900 Nov 25, 2023 09:22 AM [facility] BASIC METABOLIC PANEL (fasting) Specime n Type: SERUM No comment entered. Ordering Provider: VENKATA MARES Report Released Date/Time: Nov 20, 2023 07:33 AM Reporting Lab: [address] [address] Performing Lab: [address] [address] UREA NITROGEN 15 mg/dL 7-25 GLUCOSE 271 mg/dL H 65-100 SODIUM 139 mmol/L 135-145 POTASSIUM 4.5 mmol/L 3.5-5.0 CHLORIDE 106 mmol/L 100-110 CO2 23 meq/L 20-30 CREATININE, Serum 1.15 mg/dL 0.50-1.40 eGFR(CKD-EPI 2020) 73 mL/min >60 Nov 25, 2023 09:22 AM [facility] LIPID PANEL FASTING Specimen Type: SERUM No comment entered. Ordering Provider: VENKATA MARES Report Released Date/Time: Nov 20, 2023 07:33 AM Reporting Lab: [address] [address] Performing Lab: [address] [address] CHOLESTEROL 228 mg/dL H TRIGLYCERIDE 359 mg/dL H 0-150 LDL calculated Reflex to dLDL mg/dL 0-129 CHOL/HDL 7.4 HDL CHOLESTEROL 31 mg/dL L 40-60 LDL DIRECT 145 mg/dL H Nov 25, 2023 09:22 AM [facility] LIVER FUNCTION Specimen Type: SERUM No comment entered. Ordering Provider: VENKATA MARES Report Released Date/Time: Nov 20, 2023 07:33 AM Reporting Lab: [address] [address] Performing Lab: [address] [address] PROTEIN,TOTAL 7.6 g/dL 6.0-8.3 ALBUMIN 3.9 g/dL 3.5-5.0 ALKALINE PHOSPHATASE 91 U/L 40-150 AST 27 U/L 5-34 ALT 54 U/L BILIRUBIN, TOTAL 0.8 mg/dL 0.2-1.2 Vital Signs: All taken on the encounter date This section contains inpatient and outpatient Vital Signs collected on the date of the Encounter. Date/Time Temperature Pulse Blood Pressure Respiratory Rate SP02 Pain Height Weight Body Mass Index Source Dec 12, 2023 10:10 AM 97.5 79 143/98 16 97 6 [facility] IE Social History: Smoking Status (Most current) and Tobacco Use (All prior to encounter date) This section includes the most current, and the historical, smoking and tobacco- related health factors from the [place] facility where the Encounter took place. Current Smoking Status This section includes the most current smoking, or tobacco-related health factor, from the [place] facility where the Encounter took place. Date/Time Current Smoking Status Comment Facil ity Mar 27, 2022 09:30 AM VA-TOBACCO FORMER USER [facility] Tobacco Use History This section includes a history of the smoking, or tobacco-related health factors, that were collected on or before the date of the Encounter. The data comes from the [place] facility where the Encounter took place. Date/Time Smoking Status/Tobacco Use Comment F acility Mar 27, 2022 09:30 AM VA-TOBACCO QUIT 15 YRS OR MORE [facility] Dec 22, 2018 10:29 AM VA-TOBACCO FORMER USER [facility] Dec 22, 2018 10:29 AM VA-TOBACCO QUIT 15 YRS OR MORE [facility] Mar 19, 2018 11:33 AM VA-TOBACCO FORMER USER [facility] Mar 19, 2018 11:33 AM VA-TOBACCO QUIT 15 YRS OR MORE [facility] May 13, 2017 01:22 PM QUIT TOBACCO USE > 7 YEARS AGO quit 24 yrs ago [facility] Nov 15, 2015 09:48 AM QUIT TOBACCO USE > 7 YEARS AGO States he last smoked 21 years ago [facility] Dec 07, 2009 02:51 PM QUIT TOBACCO USE > 7 YEARS AGO [facility] Advance Directives: All historical and current Section Date Range: From patient's date of to the date document was created. This section includes ALL of a patient's completed or amended [place] Advance and Rescinded Directives. The entries below indicate that a directive exists for the patient, but an actual copy is not included with this document. The data comes from all [place] facilities. Date Advance Directives Provider Source May [...] the Encounter. The data comes from all [place] treatment facilities. Date/Time Radiology Report Provider Source Dec 25, 2023 07:00 AM OUTSIDE MRI CERVIC AL SPINE: EMERITA BAUTISTA [id number] -[id number] M Exm Date: DEC 25, 2023@07:00 Req Phys: MARELY WILKES Loc: CWM/SO/SICK CALL CT SCAN TECHNOLOGIST (Req'g Loc Img Loc: OUTSIDE GENERAL RADIOLOGY Service: Unknown (Case [id number] COMPLETE) OUTSIDE MRI CERVICAL SPINE (RAD Detailed) CPT:81351 Reason for Study: acute on chronic neck, mid and low back pain with radiation LLE Clinical History: no hx trauma Report Status: Electronically Filed Date Reported: DEC 25, 2023 Report: Community care exam; see CPRS/JLV for outside radiology report/results Impression: Community care exam; see CPRS/JLV for outside radiology report/results Primary Diagnostic Code: VERIFIED BY: / *ELECTRONICALLY FILED* [place] [facility] Encounter Notes: All associated encounter notes This section contains the clinical notes associated to the Encounter. Date/Time Encounter Note(s) Provider Source Dec 12, 2023 10:30 AM LETTERS: LOCAL TITLE: PATIENT LETTER (B) STANDARD TITLE: LETTERS DATE OF NOTE: DEC 12, 2023@10:30 ENTRY DATE: DEC 12, 2023@10:30:12 AUTHOR: MARELY WILKES EXP COSIGNER: URGENCY: STATUS: COMPLETED [facility] [address] [place] [phone] * [phone] * Date: DEC 12, 2023 Re: EMERITA BAUTISTA: The above mentioned patient is under my care, and may return to work on Dec 15, 2023. Please excuse him for Dec 10 and Dec 12, 2023, Please call [phone] if you have any questions or concerns. Sincerely, Marely Wilkes, MSN, PHLEBOTOMIST SUPERVISOR/INSTRUCTOR [facility] [address] [place] [phone] MARELY WILKES [facility] Dec 12, 2023 09:50 AM NURSE PRACTITIONER NOTE: LOCAL TITLE: NURSE PRACTIONER/SICK VISIT STANDARD TITLE: NURSE PRACTITIONER NOTE DATE OF NOTE: DEC 12, 2023@09:50 ENTRY DATE: DEC 12, 2023@09:50:08 AUTHOR: MARELY WILKES EXP COSIGNER: URGENCY: STATUS: COMPLETED SICK CALL VISIT EMERITA BAUTISTA is a 58 y/o BLACK OR MALE [place] who presents to [facility] sick call with c/o Acute on chronic neck and mid/low back pain. Low back pain radiates down LLE. Has recurrent spasms in his low right back as well. Denies neuropathy. Has been intermittent for years, continuous over past two weeks. No new injury or trauma. Has completed two sessions of PT but unable to do more d/t work schedule. Has also received acupuncture in the past which didn't help at all. PCP has ordered him Flexeril and Tylenol, which he states helps a little. Also has lidocaine patches. Unable to take NSAIDs. Previous imaging shows degenerative changes throughout. [place] PCP: ======= VENKATA MARES VITAL SIGNS: Blood Pressure: 143/98 (12/12/2023 10:10) Pain: 6 (12/12/2023 10:10) Patient Height: 77 in [195.6 cm] (03/27/2022 09:18) Patient Weight: 277 lb [125.65 kg] (11/28/2023 09:06) Pulse: 79 (12/12/2023 10:10) Respiration: 16 (12/12/2023 10:10) Temperature: 97.5 F [36.4 C] (12/12/2023 10:10) REVIEW OF SYSTEMS: see HPI PHYSICAL EXAMINATION: General: Well-appearing [place] in no obvious distress. Appears uncomfortable with sitting and shifts weight in seat. Mental Status: Alert and oriented x4. Lungs: respirations easy and unlabored MS: Diminished sensation and tenderness with flexion cervical, thoracic and lumbar spine. Pain with bending forward at the waist. Large muscle spasm present right lumbar paraspinal muscles. No spinal deformity noted. Neuro: Normal gait. Sensation intact BLE. Psych: Normal mood and affect. Normal judgment. Cooperative with exam, follows commands. ASSESSMENT/PLAN: 1. chronic back pain all levels. Discussed options. Continue lidocaine patches, Flexeril and Tylenol PRN. Start low dose gabapentin, referral made to [facility] for eval. MRI ordered C/T/L spine. Recommend moist heat, gentle stretching exercises. 2. muscle spasm lumbar spine - see above MEDICATIONS reviewed with [place] FOLLOW UP: Return to clinic 3-5 days if no improvement in symptoms. UPCOMING APPOINTMENTS: No data available /lora/ JASMYNE SCHMITZ CERTIFIED NURSE PRACTITIONER Signed: 12/12/2023 13:21 MARELY WILKES [facility]
--- OUTSIDE RECORDS SUMMARY | 2024-09-30 08:36 | XMS_ITS | Encounter Summary ---
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 MARELY WILKES Primary Care [...] [facility] H[facility] February 03, 2022 [id number] EMERITA BAUTISTA PATIENT [facility] MEDICAID MEDICAID MEDIC AID Oct 06, 2013 MEDICAI D [id number] EMERITA BAUTISTA PATIENT MEDICARE (WNR) MEDICARE (M) PART A Mar 06, 2015 PART A [id number] EMERITA BAUTISTA PATIENT MEDICARE (WNR) MEDICARE (M) PART B Mar 06, 2015 PART B [id number] EMERITA BAUTISTA PATIENT MEDICARE (WNR) MEDICARE (M) PART B Mar 06, 2015 PART B [id number] EMERITA BAUTISTA PATIENT MEDICARE (WNR) MEDICARE (M) PART A Mar 06, 2015 PART A [id number] EMERITA BAUTISTA PATIENT MEDICARE (WNR) MEDICARE (M) PART B Mar 06, 2015 PART B [id number] [phone] EMERITA BAUTISTA PATIENT MEDICARE (WNR) MEDICARE (M) PART B Mar 06, 2015 PART B [id number] EMERITA BAUTISTA PATIENT MEDICARE (WNR) MEDICARE (M) PART A Mar 06, 2015 PART A [id number] [phone] EMERITA BAUTISTA PATIENT Selected Encounter This section includes the information on record at [place] for the Encounter. Date/Time Encounter Type Encounter Description Reason Provider Source Dec 12, 2023 09:15 AM OFF/OP EST FEBRUARY X REQ PHY/QHP PRIMARY CARE/MEDICINE ICD-10-CM M54.50 Low back pain, unspecified BIANCA COELLO Behzad Encounter Template Text not used by [place] Assessments - Encounter Diagnoses This section includes the primary and secondary diagnoses documented for the Encounter. Date/Time Primary/Secondary Diagnosis Diagnosis Name Provider Source Dec 12, 2023 11:32 AM PRIMARY Low back pain, unspecified BIANCA COELLO NILS Plan of Treatment: Future Appointments (+ 6 [...] - MEDICINE [place] [facility] [place] [facility] Dec 29, 2023 09:30 AM AMBULATORY - [facility]ICINE [facility] February 10, 2024 02:00 PM AMBULATORY - [place]ICINE [place] [facility] [place] [facility] Mar 08, 2024 09:00 AM AM[facility]ULATORY - MEDICINE [facility] Mar 08, 2024 11:30 AM AMBULATORY - NONE [facility] [place] [facility] Mar 22, 2024 02:15 PM AMBULATORY - [place]ICINE [place] [facility] [place] [facility] Apr 06, 2024 03:00 PM AMBULATORY - [place]ICINE [place] [facility] [place] [facility] Apr 14, 2024 09:30 AM AMBULATORY - [facility]ICINE [facility] [place] [facility] Apr 19, 2024 03:00 PM [facility]ORY - [facility]INE [facility] Apr 20, 2024 09:00 AM AMBULATORY - [place]ICINE [place] [facility] [place] [facility] Apr 28, 2024 03:00 PM AMBULATORY - [place]ICINE [place] [facility] [place] [facility] May 21, 2024 09:45 AM AMBULATORY - [place]ICINE [place] [facility] [place] [facility] Jun 10, 2024 09:30 AM AMBULATORY - [place]ICINE [place] [facility] [place] [facility] Lab Results: +/- 30 days of [...] Range Comment Nov 27, 2023 10:26 AM [facility] HEMOGLOBIN A1C PANEL Specimen Type: BLOOD [...] Nov 27, 2023 10:16 AM Reporting Lab: [facility] [address] [facility] [address] Performing Lab: [facility] [address] [address] HEMOGLOBIN A1C 8.2 H 4.0-5.6 Nov 27, 2023 10:26 AM [facility] CBC Specimen Type: BLOOD No comment entered. Ordering Provider: SHANDA BECK Report Released Date/Time: Nov 27, 2023 10:17 AM Reporting Lab: [address] [address] Performing Lab: [address] [address] WBC 5.30 10*3/uL 4.50-11.00 RBC 5.70 10*6/uL H 4.23-5.66 HGB 17.2 g/dL H 12.8-17 HCT 51.0 H 39.2-50.4 MCV 89.5 fL 82-99 MCHC 33.7 g/dL 30.8-35.1 PLT 131 10*3/uL L 140-360 RDW-CV 12.8 12.0-16.0 MCH 30.2 pg 26.2-32.6 Nov 25, 2023 09:22 AM [place] MICROALBUMIN CREATININE RATIO PANEL Spe cimen Type: URINE No comment entered. Ordering Provider: VENKATA MARES Report Released Date/Time: Sep 17, 2023 09:09 AM Reporting Lab: [address] [address] Performing Lab: [address] [address] MICROALBUMIN/ CREATININE RATIO 28.1 mg/g 0-29.9 MICROALBUMIN, QUANTITATIVE 2.0 mg/dL RR UNAVAIL CREATININE URINE 71.08 mg/dL Nov 25, 2023 09:22 AM [place] VITAMIN D 25-OH (Therapy monitor) Speci men [...] For additional information, please refer to http://education .Kan[employer].uma information technology/faq/TBW074 (This link is being provided for informational/ educational purposes only.) This test was developed and its analytical performance characteristics have been determined by [employer] [place] [place]. It has not been cleared or approved by the U.S. Food and Drug Administration. This assay has been validated pursuant to the CLIA regulations and is used for clinical purposes. This test was developed and its analytical performance characteristics have been determined by [employer] [place] [place]. It has not been cleared or approved by the U.S. Food and Drug Administration. This assay has been validated pursuant to the CLIA regulations and is used for clinical purposes. Test [facility] by [facility], [employer] [facility], [address] [place] [address] Mohit Cazares M.D., Ph.D., Director of Laboratories , CLIA [id number] TEST PERFORMED AT: , Ordering Provider: VENKATA MARES Report Released Date/Time: Nov 20, 2023 07:33 AM Reporting Lab: [facility] [employer] [address] Performing Lab: [facility] [address] [address] VITAMIN D, 25-OH, TOTAL 9 ng/mL L 30-100 VITAMIN D, 25-OH, D3 9 ng/mL VITAMIN D, 25-OH, D2 <4 ng/mL Nov 25, 2023 09:22 AM [place] BASIC METABOLIC PANEL (fasting) Specime n Type: SERUM No comment entered. Ordering Provider: VENKATA MARES Report Released Date/Time: Nov 20, 2023 07:33 AM Reporting Lab: [facility] [address] [facility] [address] Performing Lab: [address] [address] UREA NITROGEN 15 mg/dL 7-25 GLUCOSE 271 mg/dL H 65-100 SODIUM 139 mmol/L 135-145 POTASSIUM 4.5 mmol/L 3.5-5.0 CHLORIDE 106 mmol/L 100-110 CO2 23 meq/L 20-30 CREATININE, Serum 1.15 mg/dL 0.50-1.40 eGFR(CKD-EPI 2020) 73 mL/min >60 Nov 25, 2023 09:22 AM [place] VITAMIN B12 Specimen Type: SERUM No comment entered. Ordering Provider: VENKATA MARES Report Released Date/Time: Nov 20, 2023 07:33 AM Reporting Lab: [facility] [address] [address] Performing Lab: [address] [address] VITAMIN B12 815 pg/mL 200-900 Nov 25, 2023 09:22 AM [place] LIPID PANEL FASTING Specimen Type: SERUM No comment entered. Ordering Provider: VENKATA MARES Report Released Date/Time: Nov 20, 2023 07:33 AM Reporting Lab: [facility] [address] [address] Performing Lab: [address] [address] CHOLESTEROL 228 mg/dL H TRIGLYCERIDE 359 mg/dL H 0-150 LDL calculated Reflex to dLDL mg/dL 0-129 CHOL/HDL 7.4 HDL CHOLESTEROL 31 mg/dL L 40-60 LDL DIRECT 145 mg/dL H Nov 25, 2023 09:22 AM [place] LIVER FUNCTION Specimen Type: SERUM No comment entered. Ordering Provider: VENKATA MARES Report Released Date/Time: Nov 20, 2023 07:33 AM Reporting Lab: [facility] [address] [address] Performing Lab: [facility] [address] [address] PROTEIN,TOTAL 7.6 g/dL 6.0-8.3 ALBUMIN 3.9 g/dL [...] AM 97.5 79 143/98 16 97 6 [facility] I[facility] Social History: Smoking Status (Most current) and [...] 27, 2022 09:30 AM [facility]-TO[facility]AC[facility] FORMER USER [place] Tobacco Use History This section includes a history of the smoking, or tobacco-related health factors, that were collected on or before the date of the Encounter. The data comes from the [place] facility where the Encounter took place. Date/Time Smoking Status/Tobacco Use Comment F acility Mar 27, 2022 09:30 AM VA-TOBACCO QUIT 15 YRS OR MORE [place] Dec 22, 2018 10:29 AM VA-TOBACCO FORMER USER [place] Dec 22, 2018 10:29 AM VA-TOBACCO QUIT 15 YRS OR MORE [place] Mar 19, 2018 11:33 AM VA-TOBACCO FORMER USER [place] Mar 19, 2018 11:33 AM VA-TOBACCO QUIT 15 YRS OR MORE [place] May 13, 2017 01:22 PM QUIT TOBACCO USE > 7 YEARS AGO quit 24 yrs ago [place] Nov 15, 2015 09:48 AM QUIT TOBACCO USE > 7 YEARS AGO States he last smoked 21 years ago [place] Dec 07, 2009 02:51 PM QUIT TOBACCO USE > 7 YEARS AGO [place] Advance Directives: All historical and current Section Date Range: From patient's date of to the date document was created. This section includes ALL of a patient's completed or amended [place] Advance and Rescinded Directives. The entries below indicate that a directive exists for the patient, but an actual copy is not included with this document. The data comes from all [facility]. Date Advance Directives Provider Source May [...] the Encounter. The data comes from all [place] treatment facilities. Date/Time Radiology Report Provider Source Dec 25, 2023 07:00 AM OUTSIDE MRI CERVIC AL SPINE: EMERITA BAUTISTA [id number] -[id number] M Exm Date: DEC 25, 2023@07:00 Req Phys: MARELY WILKES Pat Loc: CWM/SO/SICK CALL [facility] (Req'g Loc Img Loc: OUTSIDE GENERAL RADIOLOGY Service: Unknown (Case [id number] COMPLETE) OUTSIDE MRI CERVICAL SPINE (RAD Detailed) CPT:47829 Reason for Study: acute on chronic neck, mid and low back pain with radiation LLE Clinical History: no hx trauma Report Status: Electronically Filed Date Reported: DEC 25, 2023 Report: Community care exam; see CPRS/JLV for outside radiology report/results Impression: Community care exam; see CPRS/JLV for outside radiology report/results Primary Diagnostic Code: VERIFIED BY: / *ELECTRONICALLY FILED* [facility] [place] [facility] Encounter Notes: All associated encounter notes This section contains the clinical notes associated to the Encounter. Date/Time Encounter Note(s) Provider Source Dec 12, 2023 10:11 AM PRIMARY CARE NOTE: LOCAL TITLE: WALK-IN NOTE PRIMARY CARE (T) STANDARD TITLE: PRIMARY CARE NOTE DATE OF NOTE: DEC 12, 2023@10:11 ENTRY DATE: DEC 12, 2023@10:11:41 AUTHOR: BIANCA COELLO COSIGNER: URGENCY: STATUS: COMPLETED Data: 58year old MALE reports to Primary Care clinic for Walk-In visit. [place]'s PCP is VENKATA MARES, last visit with PCP was 11/28/23, next visit scheduled for 12/29/23. Today Vet walks in to clinic with complaint of back pain x 2 weeks Last recorded Vital Signs are: Temperature:97.5 F [36.4 C] (12/12/2023 10:10) Pulse:79 (12/12/2023 10:10) Blood Pressure:143/98 (12/12/2023 10:10) Respiration:16 (12/12/2023 10:10) Pain:6 (12/12/2023 10:10) Vet reports current allergies are: Remote Allergy Data No Remote Allergy/ADR Data available for this patient Current Medications from Active Med list include: Active Outpatient Medications (including Supplies): Active Outpatient Medications Status = 1) ACETAMINOPHEN 500MG TAB TAKE TWO TABLETS BY MOUTH ACTIVE THREE TIMES DAILY NEEDED FOR PAIN 2) ATORVASTATIN CALCIUM 80MG TAB TAKE ONE TABLET BY ACTIVE MOUTH AT BEDTIME FOR HIGH CHOLESTEROL 3) CYCLOBENZAPRINE HCL 10MG TAB TAKE ONE TABLET BY MOUTH ACTIVE AT BEDTIME NEEDED FOR MUSCLE SPASM 4) DICLOFENAC NA 1% TOP GEL APPLY 4 GRAMS TOPICALLY ACTIVE TWICE DAILY NEEDED FOR OSTEOARTHRITIS - USE DOSING CARD PROVIDED IN BOX 5) EMPAGLIFLOZIN 25MG TAB TAKE ONE TABLET BY MOUTH ONCE ACTIVE DAILY 6) GLUCOSE SENSOR DEXCOM G7 USE 1 SENSOR DIRECTED ACTIVE EVERY 10 DAYS 7) INSULIN,ASPART(EQV-NOVLG)100UN/ML FLXPEN INJECT 25 ACTIVE UNITS SUBCUTANEOUSLY BEFORE BREAKFAST AND INJECT 25 UNITS BEFORE LUNCH AND INJECT 25 UNITS BEFORE SUPPER (SKIP DOSE IF MEAL IS SKIPPED) 8) INSULIN,GLARGINE-YFGN 100UNIT/ML PEN 3ML INJECT 40 ACTIVE UNITS SUBCUTANEOUSLY TWICE DAILY FOR DIABETES 9) LIDOCAINE 5% PATCH APPLY 1 PATCH TOPICALLY ONCE DAILY ACTIVE NEEDED (LEAVE PATCH ON FOR 12 HOURS, THEN REMOVE PATCH) 10) LISINOPRIL 5MG TAB TAKE ONE TABLET BY MOUTH ONCE ACTIVE DAILY TO CONTROL BLOOD PRESSURE 11) METFORMIN HCL 750MG 24HR SA TAB TAKE ONE TABLET BY ACTIVE MOUTH ONCE DAILY 12) SEMAGLUTIDE 1MG/0.75ML INJ PEN 3ML INJECT 1MG ACTIVE SUBCUTANEOUSLY ONCE A WEEK FOR TYPE 2 DIABETES MELLITUS Action: reports to sick call with 2 weeks of back pain. States history of intermittent pain but this time it has lasted longer than usual Pain to upper and lower back, right mid back area. Pain varies in intensity depending on the time of the day. decrease ROM to neck noted, feels stiff. Pain increased with certain position Using Tylenol, diclofenac and lidocaine patch all with minimal effect, short term relief Currently no LE radiation, reports at times it will radiate down left leg. No numbness or tingling except for feet which is baseline. [place] referred to Marely Wilkes [facility]REL LEADER for evaluation. Reminders Info Only: [facility] DUE NOW Influenza Immunization DUE NOW Medication Reconciliation DUE NOW Influenza Immunization: The patient declines to receive the recommended dose of seasonal influenza vaccine. Immunization: INFLUENZA, UNSPECIFIED FORMULATION Refusal Reason: PATIENT DECISION Patient refuses all immunization(s) in the FLU group Date Documented: 12/12/23 11:30 /lora/ BIANCA COELLO RN PRIMARY CARE RN Signed: 12/12/2023 11:32 BIANCA COELLO [place]
--- OUTSIDE RECORDS SUMMARY | 2024-09-30 08:36 | XMS_ITS | Encounter Summary ---
Author Name [facility] [place] [facility] [place] [place] Address [address] [place] [address] Care Team Providers Care Medical Lab Scientist Name Role Phone CHANI RHODES Primary Care [...] to Policy Zayas [employer]ANCE [facility] February 03, 2022 [id number] [phone] EMERITA BAUTISTA PATIENT [facility] MEDICAID MEDICAID MEDIC AID Oct 06, 2013 MEDICAI D [id number] EMERITA BAUTISTA PATIENT MEDICARE (WNR) MEDICARE (M) PART A Mar 06, 2015 PART A [id number] [phone] EMERITA BAUTISTA PATIENT MEDICARE (WNR) MEDICARE (M) PART B Mar 06, 2015 PART B [id number] EMERITA BAUTISTA PATIENT MEDICARE (WNR) MEDICARE (M) PART B Mar 06, 2015 PART B [id number] EMERITA BAUTISTA PATIENT MEDICARE (WNR) MEDICARE (M) PART A Mar 06, 2015 PART A [id number] EMERITA BAUTISTA PATIENT MEDICARE (WNR) MEDICARE (M) PART A Mar 06, 2015 PART A [id number] EMERITA BAUTISTA PATIENT MEDICARE (WNR) MEDICARE (M) PART B Mar 06, 2015 PART B [id number] [phone] EMERITA BAUTISTA PATIENT MEDICARE (WNR) MEDICARE (M) PART B Mar 06, 2015 PART B [id number] [phone] EMERITA BAUTISTA PATIENT Selected Encounter This section includes the information on record at [place] for the Encounter. Date/Time Encounter Type Encounter Description Reason Provider Source Nov 28, 2023 09:00 AM OFFICE O/P EST MOD 30 MIN PRIMARY CARE/MEDICINE ICD-10-CM E78.5 Hyperlipidemia, unspecified STELEAVENKATA F KEATON Encounter Template Text not used by [place] Assessments - Encounter Diagnoses This section includes the primary and secondary diagnoses documented for the Encounter. Date/Time Primary/Secondary Diagnosis Diagnosis Name Provider Source Nov 28, 2023 12:40 PM PRIMARY Hyperlipidemia, unspecified STELEAVENKATA NILS Nov 28, 2023 12:40 PM SECONDARY Essential (primary) hypertension MYKELVENKATA CRUZ Jamaal NILS Nov 28, 2023 12:40 PM SECONDARY Low back pain, unspecified MYKELLEVENKATA Marx NILS Nov 28, 2023 12:40 PM SECONDARY Type 2 diabetes mellitus without complications VENKATA MARES Plan of Treatment: Future Appointments (+ 6 months) and Future Tests (+/- 45 days) The Plan of Treatment section includes future care activities for the patient from all [place] treatmentfacilities. This section includes future appointments and future orders which are active, pending or scheduled. Future Appointments This section includes appointments that were scheduled to occur 6 months from the date of the Encounter, up to a maximum of 20 appointments. The data comes from all [place] treatment facilities. Appointment Date/Time Appointment Type Appointme nt Facility Name Dec 12, 2023 09:15 AM AMBULATORY - MEDICINE [facility] Dec 12, 2023 09:30 AM AMBULATORY - MEDIC[facility] Dec 25, 2023 07:00 AM [facility] Dec 29, 2023 09:30 AM [facility] February 10, 2024 02:00 PM [facility]UL[facility] [place] [facility] Mar 08, 2024 09:00 AM [facility] Mar 08, 2024 11:30 AM AMBULATORY - NONE [facility] [place] [facility] Mar 22, 2024 02:15 PM [facility] [place] [facility] Apr 06, 2024 03:00 PM [facility] [place] [facility] Apr 14, 2024 09:30 AM [facility] [place] [facility] Apr 19, 2024 03:00 PM [facility] Apr 20, 2024 09:00 AM [facility] [place] [facility] Apr 28, 2024 03:00 PM AMBULATORY - MEDICINE [facility] [place] [facility] May 21, 2024 09:45 AM AMBULATORY - MEDICINE [place] [facility] [place] [facility] Lab Results: +/- 30 days of the encounter This section includes the Chemistry and Hematology Lab Results on record with [place] for the patient. Radiology Reports and Pathology Reports are provided separately, in subsequent sections. Lab Results This section contains the Chemistry/Hematology Results that were resulted 30 days before or 30 daysafter the date of the Encounter. Date/Time Source Result Type Result - Unit Interpretation Reference Range Comment Nov 27, 2023 10:26 AM [facility] HEMOGLOBIN A1C PANEL Specimen Type: BLOOD [...] Nov 27, 2023 10:16 AM Reporting Lab: [facility] [address] [address] Performing Lab: [facility] [address] [facility] [address] HEMOGLOBIN A1C 8.2 H 4.0-5.6 Nov 27, 2023 10:26 AM [facility] CBC Specimen Type: BLOOD No comment entered. Ordering Provider: SHANDA BECK Report Released Date/Time: Nov 27, 2023 10:17 AM Reporting Lab: [facility] [address] [facility] [address] Performing Lab: [address] [address] WBC 5.30 10*3/uL 4.50-11.00 RBC 5.70 10*6/uL H 4.23-5.66 HGB 17.2 g/dL H 12.8-17 HCT 51.0 H 39.2-50.4 MCV 89.5 fL 82-99 MCHC 33.7 g/dL 30.8-35.1 PLT 131 10*3/uL L 140-360 RDW-CV 12.8 12.0-16.0 MCH 30.2 pg 26.2-32.6 Nov 25, 2023 09:22 AM [facility] MICROALBUMIN CREATININE RATIO PANEL Spe cimen Type: URINE No comment entered. Ordering Provider: VENKATA MARES Report Released Date/Time: Sep 17, 2023 09:09 AM Reporting Lab: [address] [address] Performing Lab: [address] [address] MICROALBUMIN/ CREATININE RATIO 28.1 mg/g 0-29.9 MICROALBUMIN, QUANTITATIVE 2.0 mg/dL RR UNAVAIL CREATININE URINE 71.08 mg/dL Nov 25, 2023 09:22 AM [facility] VITAMIN D 25-OH (Therapy monitor) Speci men [...] For additional information, please refer to http://education .Emitless/faq/VPA006 (This link is being provided for informational/ educational purposes only.) This test was developed and its analytical performance characteristics have been determined by [employer] [place], [place]. It has not been cleared or approved by the U.S. Food and Drug Administration. This assay has been validated pursuant to the CLIA regulations and is used for clinical purposes. This test was developed and its analytical performance characteristics have been determined by [employer] [facility] [employer] [facility] [place], [place]. It has not been cleared or approved by the U.S. Food and Drug Administration. This assay has been validated pursuant to the CLIA regulations and is used for clinical purposes. Test Performed by [facility], [employer] [facility], [address] [place] [address] Mohit Cazares M.D., Ph.D., Director of Laboratories , CLIA [id number] TEST PERFORMED AT: , Ordering Provider: VENKATA MARES Report Released Date/Time: Nov 20, 2023 07:33 AM Reporting Lab: [address] [address] Performing Lab: [place] [id number] [address] [address] VITAMIN D, 25-OH, TOTAL 9 ng/mL L 30-100 VITAMIN D, 25-OH, D3 9 ng/mL VITAMIN D, 25-OH, D2 <4 ng/mL Nov 25, 2023 09:22 AM [facility] VITAMIN B12 Specimen Type: SERUM No comment entered. Ordering Provider: VENKATA MARES Report Released Date/Time: Nov 20, 2023 07:33 AM Reporting Lab: [address] [address] Performing Lab: [address] [address] VITAMIN B12 815 pg/mL 200-900 Nov 25, 2023 09:22 AM [facility] LIPID PANEL FASTING Specimen Type: SERUM No comment entered. Ordering Provider: VENKATA MARES Report Released Date/Time: Nov 20, 2023 07:33 AM Reporting Lab: [address] [address] Performing Lab: [address] [address] CHOLESTEROL 228 mg/dL H TRIGLYCERIDE 359 mg/dL H 0-150 LDL calculated Reflex to dLDL mg/dL 0-129 CHOL/HDL 7.4 HDL CHOLESTEROL 31 mg/dL L 40-60 LDL DIRECT 145 mg/dL H Nov 25, 2023 09:22 AM [facility] LIVER FUNCTION Specimen Type: SERUM No comment entered. Ordering Provider: VENKATA MARES Report Released Date/Time: Nov 20, 2023 07:33 AM Reporting Lab: [address] [address] Performing Lab: [address] [address] PROTEIN,TOTAL 7.6 g/dL 6.0-8.3 ALBUMIN 3.9 g/dL 3.5-5.0 ALKALINE PHOSPHATASE 91 U/L 40-150 AST 27 U/L 5-34 ALT 54 U/L BILIRUBIN, TOTAL 0.8 mg/dL 0.2-1.2 Nov 25, 2023 09:22 AM [facility] BASIC METABOLIC PANEL (fasting) Specime n Type: SERUM No comment entered. Ordering Provider: VENKATA MARES Report Released Date/Time: Nov 20, 2023 07:33 AM Reporting Lab: [address] [address] Performing Lab: [address] [address] UREA NITROGEN 15 mg/dL 7-25 GLUCOSE 271 mg/dL H 65-100 SODIUM 139 mmol/L 135-145 POTASSIUM 4.5 mmol/L 3.5-5.0 CHLORIDE 106 mmol/L 100-110 CO2 23 meq/L 20-30 CREATININE, Serum 1.15 mg/dL 0.50-1.40 eGFR(CKD-EPI 2020) 73 mL/min >60 Vital Signs: All taken on the encounter date This section contains inpatient and outpatient Vital Signs collected on the date of the Encounter. Date/Time Temperature Pulse Blood Pressure Respiratory Rate SP02 Pain Height Weight Body Mass Index Source Nov 28, 2023 09:06 AM 98.5 91 134/80 96 277 33 [facility] IE Social History: Smoking Status (Most current) and Tobacco Use (All prior to encounter date) This section includes the most current, and the historical, smoking and tobacco- related health factors from the [place] facility where the Encounter took place. Current Smoking Status This section includes the most current smoking, or tobacco-related health factor, from the [place] facility where the Encounter took place. Date/Time Current Smoking Status Comment Facil ity Mar 27, 2022 09:30 AM [facility]-TOBACCO FORMER USER [facility] Tobacco Use History This section includes a history of the smoking, or tobacco-related health factors, that were collected on or before the date of the Encounter. The data comes from the [place] facility where the Encounter took place. Date/Time Smoking Status/Tobacco Use Comment F acility Mar 27, 2022 09:30 AM VA-TOBACCO QUIT 15 YRS OR MORE [facility] Dec 22, 2018 10:29 AM VA-TOBACCO FORMER USER [facility] Dec 22, 2018 10:29 AM VA-TOBACCO QUIT 15 YRS OR MORE [facility] Mar 19, 2018 11:33 AM VA-TOBACCO FORMER USER [facility] Mar 19, 2018 11:33 AM VA-TOBACCO QUIT 15 YRS OR MORE [facility] May 13, 2017 01:22 PM QUIT TOBACCO USE > 7 YEARS AGO quit 24 yrs ago [facility] Nov 15, 2015 09:48 AM QUIT TOBACCO USE > 7 YEARS AGO States he last smoked 21 years ago [facility] Dec 07, 2009 02:51 PM QUIT TOBACCO USE > 7 YEARS AGO [facility] Advance Directives: All historical and current Section Date Range: From patient's date of to the date document was created. This section includes ALL of a patient's completed or amended [place] Advance and Rescinded Directives. The entries below indicate that a directive exists for the patient, but an actual copy is not included with this document. The data comes from all [place] facilities. Date Advance Directives Provider Source May [...] the Encounter. The data comes from all [place] treatment facilities. 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 (Req'g Loc Img Loc: OUTSIDE GENERAL RADIOLOGY Service: Unknown (Case [id number] COMPLETE) OUTSIDE MRI CERVICAL SPINE (RAD Detailed) CPT:04595 Reason for Study: acute on chronic neck, mid and low back pain with radiation LLE Clinical History: no hx trauma Report Status: Electronically Filed Date Reported: DEC 25, 2023 Report: Community care exam; see CPRS/JLV for outside radiology report/results Impression: Community care exam; see CPRS/JLV for outside radiology report/results Primary Diagnostic Code: VERIFIED BY: / *ELECTRONICALLY FILED* [facility] Encounter Notes: All associated encounter notes This section contains the clinical notes associated to the Encounter. Date/Time Encounter Note(s) Provider Source Nov 28, 2023 09:31 AM PHYSICIAN NOTE: LOCAL TITLE: MD NOTE STANDARD TITLE: PHYSICIAN NOTE DATE OF NOTE: NOV 28, 2023@09:31 ENTRY DATE: NOV 28, 2023@09:31:34 AUTHOR: VENKATA MARES COSIGNER: URGENCY: STATUS: COMPLETED HISTORY OF PRESENT ILLNESS: EMERITA BAUTISTA, is a 58 yo MALE Porter, who presents at the [facility] for follow up visit for chronic medical conditions. The also complains of chronic low back pain on and off sometimes radiating left lower extremity The had blood work done recently and the results were discussed with the patient today in office Non- VA providers- NA Active problems - Computerized Problem List is the source for the followin- HLP 2- HTN 3-diabetes mellitus type II -uncontrolled 4-chronic low back pain, on and off 5-hypertriglyceridemia 6-thrombocytopenia - mild The following VA and Non-VA meds were reconciled with patient: Active Outpatient Medications (including Supplies): Issue Date Status Last Fill Active Outpatient Medications Refills Expiration === 1) DICLOFENAC NA 1% TOP GEL Qty: 100 for ACTIVE Issu:05-21-23 20 days Sig: APPLY 4 GRAMS TOPICALLY Refills: 2 Last:05-21-23 TWICE DAILY NEEDED FOR Expr:05-21-24 OSTEOARTHRITIS - USE DOSING CARD PROVIDED IN BOX 2) EMPAGLIFLOZIN 25MG TAB Qty: 90 for 90 ACTIVE Issu:10-17-23 days Sig: TAKE ONE TABLET BY MOUTH Refills: 1 Last:10-17-23 ONCE DAILY Expr:10-17-24 3) GLUCOSE SENSOR DEXCOM G7 Qty: 3 for 30 ACTIVE Issu:06-04-23 days Sig: USE 1 SENSOR DIRECTED Refills: 0 Last:11-10-23 EVERY 10 DAYS Expr:06-04-24 4) INSULIN,ASPART(EQV-NOVLG)100UN/ML FLXPEN ACTIVE Issu:01-10-23 Qty: 20 for 56 days Sig: INJECT 25 Refills: 2 Last:08-16-23 UNITS SUBCUTANEOUSLY BEFORE BREAKFAST Expr:01-11-24 AND INJECT 25 UNITS BEFORE LUNCH AND INJECT 25 UNITS BEFORE SUPPER (SKIP DOSE IF MEAL IS SKIPPED) 5) INSULIN,GLARGINE-YFGN 100UNIT/ML PEN 3ML ACTIVE Issu:02-13-23 Qty: 20 for 60 days Sig: INJECT 40 Refills: 2 Last:08-20-23 UNITS SUBCUTANEOUSLY TWICE DAILY FOR Expr:02-14-24 DIABETES 6) LISINOPRIL 5MG TAB Qty: 90 for 90 days ACTIVE Issu:05-21-23 Sig: TAKE ONE TABLET BY MOUTH ONCE Refills: 2 Last:10-07-23 DAILY TO CONTROL BLOOD PRESSURE Expr:05-21-24 7) METFORMIN HCL 750MG 24HR SA TAB Qty: 90 ACTIVE Issu:02-13-23 for 90 days Sig: TAKE ONE TABLET BY Refills: 1 Last:06-02-23 MOUTH ONCE DAILY Expr:02-14-24 8) SEMAGLUTIDE 1MG/0.75ML INJ PEN 3ML Qty: HOLD Issu:11-27-23 1 for 28 days Sig: INJECT 1MG Refills: 4 SUBCUTANEOUSLY ONCE A WEEK FOR TYPE 2 Expr:11-27-24 DIABETES MELLITUS ALLERGIES: ========= Patient has answered NKA LAB HISTORY: B12, MICROALBUMIN normal limits Glucose level 271 with hemoglobin A1c 8.2 total cholesterol 228 with triglycerides 359 with HDL 31 and LDL 145 Hemoglobin 17.2 and platelets 131 PMH: HTN, HLP, DM type 2, Diverticulosis, chronic low back pain, intermittent diarrhea, obesity, erectile dysfunction, bilateral knee chronic pain- osteoarthritis, allergic rhinitis, vitamin D deficiency SURGICAL HISTORY: lap terrell - 2021 left foot surgery-2009 Right TKR-2019 FAMILY HISTORY: mother- of DM father- of colon cancer 1 half brother- healthy SOCIAL HISTORY: with 6 children Smoking quit 9 years ago; 1/2 pack a day for 4- 5 years Drugs denies Alcohol denies- quit 29 years ago HISTORY: PERIOD OF SERVICE - POST-[facility] FROM Jun TO Apr COMBAT SERVICE INDICATED: No REVIEW OF SYSTEMS: CONSTITUTIONAL: negative for fever, chills, fatigue CARDIOVASCULAR: negative for chest pain, palpitations, SOB , legs edema RESPIRATORY: negative for cough or wheezing GASTROINTESTINAL: negative for abd pain, no N/V/D/C GENITOURINARY: negative for dysuria, MUSCULOSKELETAL: chronic low back pain on & off; somethimes radiating on LLE ; NEUROLOGIC: negative for headaches; negative for tingling / nuumbness in LLE or perineal area; negative for urinary/ feces incontinence PHYSICAL EXAMINATION: GENERAL: WD/obese , seems to be in NAD the moment of examination HEART: S1/S2 ,RRR no murmurs, LUNGS: YUE, CTA B/L, no wheezes, rales/ rhonchi/ crackles ABDOMEN: Soft, NT/ND, bowel sounds positive EXTREMITIES: no edema of lower extremities, NEUROLOGIC: AAO x3,normal gait ASSESSMENT/PLAN: 1- HLP-Will increase atorvastatin to 80 mg p.o. nightly and the new prescription was sent to the pharmacy The Porter admits of not watching his diet or exercising for the last few months but he will change his habits I advised to exercise at least 150 minutes moderate activity weekly He refused nutritional consultation at this moment 2- HTN-blood pressure borderline elevated today in office but patient is asymptomatic The Porter states did not monitor his blood pressure at home but he will start checking it I advised to monitor her twice a week and keep a logbook I advised to decrease salt and caffeine intake and start exercising as tolerated 3-diabetes mellitus type II -uncontrolled Insulin glargine was increased to 44 units twice a day and continue NovoLog 25 units before meals, metformin Jardiance and semaglutide weekly Advised to watch his diet and start exercising Hemoglobin A1c is 8.2 coming from 7.2 and last blood work Follow-up with our PACT clinical pharmacist-I noticed increase in insulin glargine 4-chronic low back pain, on and off Sometimes radiating on left lower extremity posterior aspect until behind the knee He denies any tingling or numbness in left lower extremity or perineal area and not urinary or feces incontinence He would like to have a few tablets of cyclobenzaprine and he states has been using maybe twice a week I advised to avoid drinking alcohol or driving after taking the medications and he verbalized understanding He states does not drink alcohol Advised to continue Tylenol as needed and lidocaine patches as needed 9-hhwdvarypraxrolrnkuf-L advised to decrease carbohydrates in diet and exercise as tolerated 6-thrombocytopenia -mild -will monitor for now FOLLOW UP: ========= RTC -3 months follow-up with fasting labs Blood work ordered Today's documentation was made using voice recognition software. This note may contain spelling/grammatical errors secondary to this software. Every effort is made to correct errors, but if mistakes are found they need to be taken in context. UPCOMING APPOINTMENTS: 12/29/2023 09:30 CWM/SO/PACT EIGHT WH 01/08/2024 15:00 CWM/SO/PHARM/PACT 2 04/20/2024 09:00 NHM/OPTOMETRY/[facility]/ No barriers; Patient understands and agrees to current treatment plan. If pt has any questions, concerns, or changes in current health status he/she will call or come in to the VA. Medication Reconciliation: Outpatient: Has the patient been taking medications as documented in the EMLR? YES: The patient has been taking medications as documented in the EMLR. Essential Medication List for Review used to complete this medication reconciliation. INCLUDED IN THIS LIST: Alphabetical list of active outpatient prescriptions dispensed from this VA (local) and dispensed from another VA or [facility]D facility (remote) as well as inpatient orders (local, pending and active), local clinic medications, locally documented non-VA medications, and local prescriptions that have or been discontinued in the past 90 days. - All changes in medications, including all non-VA/Herbal/OTC medications were entered into CPRS. - If there were any medications the patient should no longer take, they were discontinued. - The patient/caregiver was instructed to update this list, discard old lists, and take this list to the next appointment, whether with a VA or non-VA provider. JLV Link Data on this list may not be complete. Please check JLV. Allergies/ADRs (Tool #5) FACILITY ALLERGY/ADR -------- [facility] No Known Allergies [facility] NO KNOWN ALLERGIES Med Yvonne Martinez (Tool #1) INCLUDED IN THIS LIST: Alphabetical list of active outpatient prescriptions dispensed from this [place] (local) and dispensed from another [place] or [facility] facility (remote) as well as inpatient orders (local pending and active), local clinic medications, locally documented non-VA medications, and local prescriptions that have or been discontinued in the past 90 days. Non-VA Meds Last Documented On: Nov 20, 2017 NOTE The display of VA prescriptions dispensed from another [place] or [facility] facility (remote) is limited to active outpatient prescription entries matched to National Drug File at the originating site and may not include some items such as investigational drugs, compounds, etc. NOT INCLUDED IN THIS LIST: Medications self-entered by the patient into personal health records (i.e. [employer]) are NOT included in this list. Non-VA medications documented outside this [place], remote inpatient orders (regardless of status) and remote clinic medications are NOT included in this list. The patient and provider must always discuss medications the patient is taking, regardless of where the medication was dispensed or obtained. -- OUTPT ACETAMINOPHEN 500MG TAB (Status = ) TAKE TWO TABLETS BY MOUTH THREE TIMES DAILY NEEDED FOR PAIN Rx# [id number] Last Released: 10/14/22 Qty/Days Supply: 200/30 Rx Expiration Date: 10/15/23 Refills Remainin OUTPT ATORVASTATIN CALCIUM 80MG TAB (Status = ) TAKE ONE-HALF TABLET BY MOUTH AT BEDTIME FOR CHOLESTEROL Rx# [id number] Last Released: 09/14/22 Qty/Days Supply: 4590 Rx Expiration Date: 09/12/23 Refills Remainin OUTPT DICLOFENAC NA 1% TOP GEL (Status = Active) APPLY 4 GRAMS TOPICALLY TWICE DAILY NEEDED FOR OSTEOARTHRITIS - USE DOSING CARD PROVIDED IN BOX Rx# [id number] Last Released: 05/21/23 Qty/Days Supply: 100/20 Rx Expiration Date: 05/21/24 Refills Remainin Indication: FOR JOINT PAIN OUTPT EMPAGLIFLOZIN 25MG TAB (Status = Discontinued) TAKE ONE TABLET BY MOUTH ONCE DAILY Rx# [id number] Last Released: 08/19/23 Qty/Days Supply: 6060 Rx Expiration Date: 01/11/24 Refills Remainin Indication: FOR TYPE 2 DIABETES MELLITUS OUTPT EMPAGLIFLOZIN 25MG TAB (Status = Discontinued) TAKE ONE TABLET BY MOUTH ONCE DAILY Rx# [id number] Last Released: 10/15/23 Qty/Days Supply: 6060 Rx Expiration Date: 10/07/24 Refills Remainin Indication: FOR TYPE 2 DIABETES MELLITUS OUTPT EMPAGLIFLOZIN 25MG TAB (Status = Active) TAKE ONE TABLET BY MOUTH ONCE DAILY Rx# [id number] Last Released: 10/17/23 Qty/Days Supply: 9090 Rx Expiration Date: 10/17/24 Refills Remainin Indication: FOR TYPE 2 DIABETES MELLITUS OUTPT INSULIN,ASPART(EQV-NOVLG)100UN/ML FLXPEN (Status = Active) INJECT 25 UNITS SUBCUTANEOUSLY BEFORE BREAKFAST AND INJECT 25 UNITS BEFORE LUNCH AND INJECT 25 UNITS BEFORE SUPPER (SKIP DOSE IF MEAL IS SKIPPED) Rx# [id number] Last Released: 08/14/23 Qty/Days Supply: Rx Expiration Date: 01/11/24 Refills Remainin OUTPT INSULIN,GLARGINE-YFGN 100UNIT/ML PEN 3ML (Status = Active) INJECT 40 UNITS SUBCUTANEOUSLY TWICE DAILY FOR DIABETES Rx# [id number] Last Released: 08/07/23 Qty/Days Supply: 2060 Rx Expiration Date: 02/14/24 Refills Remainin Indication: FOR DIABETES OUTPT LIDOCAINE 5% PATCH (Status = ) APPLY 1 PATCH TOPICALLY ONCE DAILY NEEDED (LEAVE PATCH ON FOR 12 HOURS, THEN REMOVE PATCH) Rx# [id number] Last Released: 05/21/23 Qty/Days Supply: Rx Expiration Date: 10/15/23 Refills Remainin Indication: BACK PAIN OUTPT LISINOPRIL 5MG TAB (Status = Active) TAKE ONE TABLET BY MOUTH ONCE DAILY TO CONTROL BLOOD PRESSURE Rx# [id number] Last Released: 10/07/23 Qty/Days Supply: Rx Expiration Date: 05/21/24 Refills Remainin OUTPT METFORMIN HCL 750MG 24HR SA TAB (Status = Active) TAKE ONE TABLET BY MOUTH ONCE DAILY Rx# [id number] Last Released: 06/02/23 Qty/Days Supply: Rx Expiration Date: 02/14/24 Refills Remainin Indication: FOR TYPE 2 DIABETES MELLITUS OUTPT SEMAGLUTIDE 0.25MG/0.375ML INJ PEN 3ML (Status = Discontinued) INJECT 0.25MG SUBCUTANEOUSLY ONCE A WEEK FOR 2 WEEKS, THEN INJECT 0.5MG ONCE A WEEK Rx# [id number] Last Released: 10/17/23 Qty/Days Supply: 11/02 Rx Expiration Date: 11/16/23 Refills Remainin Indication: FOR TYPE 2 DIABETES MELLITUS OUTPT SEMAGLUTIDE 0.25MG/0.375ML INJ PEN 3ML (Status = Discontinued) INJECT 0.5MG SUBCUTANEOUSLY ONCE A WEEK FOR TYPE 2 DIABETES MELLITUS Rx# [id number] Last Released: 11/05/23 Qty/Days Supply: 11/02 Rx Expiration Date: 11/04/24 Refills Remainin Indication: FOR TYPE 2 DIABETES MELLITUS OUTPT SEMAGLUTIDE 1MG/0.75ML INJ PEN 3ML (Status = Discontinued) INJECT 1MG SUBCUTANEOUSLY ONCE A WEEK Rx# [id number] Last Released: 07/31/23 Qty/Days Supply: Rx Expiration Date: 03/28/24 Refills Remainin Indication: FOR TYPE 2 DIABETES MELLITUS OUTPT SEMAGLUTIDE 1MG/0.75ML INJ PEN 3ML (Status = On Hold) INJECT 1MG SUBCUTANEOUSLY ONCE A WEEK FOR TYPE 2 DIABETES MELLITUS Rx# [id number] Last Released: Qty/Days Supply: 11/02 Rx Expiration Date: 11/27/24 Refills Remainin Indication: FOR TYPE 2 DIABETES MELLITUS -- SUPPLIES -- OUTPT ACCU-CHEK GUIDE (GLUCOSE) TEST STRIP (Status = ) USE 1 STRIP TO TEST BLOOD SUGARS THREE TIMES A DAY Rx# [id number] Last Released: 11/06/22 Qty/Days Supply: 300 Rx Expiration Date: 11/07/23 Refills Remainin OUTPT ACCU-CHEK GUIDE ME (GLUCOSE) METER (Status = ) USE METER TO TEST BLOOD SUGARS ONCE DAILY Rx# [id number] Last Released: 07/02/23 Qty/Days Supply: Rx Expiration Date: 09/24/23 Refills Remainin OUTPT ALCOHOL PREP PAD (Status = ) USE 1 PAD TOPICALLY THREE TIMES A DAY TO CLEAN SKIN FOR INJECTION ETC Rx# [id number] Last Released: 11/06/22 Qty/Days Supply: 400/90 Rx Expiration Date: 11/07/23 Refills Remainin OUTPT GLUCOSE SENSOR DEXCOM G7 (Status = Active) USE 1 SENSOR DIRECTED EVERY 10 DAYS Rx# [id number] Last Released: 11/10/23 Qty/Days Supply: 01/02 Rx Expiration Date: 06/04/24 Refills Remainin OUTPT LANCET,SOFTCLIX (Status = ) USE 1 LANCET TOPICALLY THREE TIMES A DAY TO TEST BLOOD SUGAR Rx# [id number] Last Released: 11/06/22 Qty/Days Supply: 300 Rx Expiration Date: 11/07/23 Refills Remainin Assess Statin Use - Lipids (CVD/DM): The patient is already on a statin. The patients prescription for a statin was reviewed and updated. /lora/ VENKATA MARES MD PRIMARY CARE PHYSICIAN Signed: 11/28/2023 12:40 VENKATA MARES WIDEN
--- OUTSIDE RECORDS SUMMARY | 2024-09-30 08:36 | XMS_ITS | Encounter Summary ---
Author Name [facility] [place] Organization [place] Address [address] [place] [address] Care Team Providers Care Relocation Specialist Name Role Phone CHANI RHODES Primary Care [...] [facility] February 03, 2022 [id number] EMERITA BAUTISTA PATIENT [facility] MEDICAID MEDICAID MEDIC AID Oct 06, 2013 MEDICAI D [id number] EMERITA BAUTISTA PATIENT MEDICARE (WNR) MEDICARE (M) PART A Mar 06, 2015 PART A [id number] EMERITA BAUTISTA PATIENT MEDICARE (WNR) MEDICARE (M) PART B Mar 06, 2015 PART B [id number] [phone] EMERITA BAUTISTA PATIENT MEDICARE (WNR) MEDICARE (M) PART B Mar 06, 2015 PART B [id number] [phone] EMERITA BAUTISTA PATIENT MEDICARE (WNR) MEDICARE (M) PART A Mar 06, 2015 PART A [id number] [phone] EMERITA BAUTISTA PATIENT MEDICARE (WNR) MEDICARE (M) PART A Mar 06, 2015 PART A [id number] [phone] EMERITA BAUTISTA PATIENT MEDICARE (WNR) MEDICARE (M) PART B Mar 06, 2015 PART B [id number] EMERITA BAUTISTA PATIENT MEDICARE (WNR) MEDICARE (M) PART B Mar 06, 2015 PART B [id number] EMERITA BAUTISTA PATIENT Selected Encounter This section includes the information on record at AL for the Encounter. Date/Time Encounter Type Encounter Description Reason Pro vider Source Dec 22, 2023 03:53 PM Outpatient Encounter PRIMARY CARE/MEDICINE IHE Encounter Template Text not used by AL Plan of Treatment: Future Appointments (+ 6 months) and Future Tests (+/- 45 days) The Plan of Treatment section includes future care activities for the patient from all AL treatmentfacilities. This section includes future appointments and future orders which are active, pending or scheduled. Future Appointments This section includes appointments that were scheduled to occur 6 months from the date of the Encounter, up to a maximum of 20 appointments. The data comes from all [place] treatment facilities. Appointment Date/Time Appointment Type Appointme nt Facility Name Dec 25, 2023 07:00 AM AMBULATORY - MEDICINE [place] [facility] [place] [facility] Dec 29, 2023 09:30 AM [facility]IC[facility] February 10, 2024 02:00 PM AMBULATORY - MEDICINE [facility] [place] [facility] Mar 08, 2024 09:00 AM AMBULATORY - MEDICINE [facility] Mar 08, 2024 11:30 AM AMBULATORY - NONE [facility] [place] [facility] Mar 22, 2024 02:15 PM AMBULATORY - MEDICINE [facility] [place] [facility] Apr 06, 2024 03:00 PM AMBULATORY - MEDICINE [facility] [place] [facility] Apr 14, 2024 09:30 AM AMBULATORY - MEDICINE [facility] [place] [facility] Apr 19, 2024 03:00 PM AM[facility]ULATORY - MEDICINE [facility] Apr 20, 2024 09:00 AM AMBULATORY - MEDICINE [place] [facility] [place] [facility] Apr 28, 2024 03:00 PM AMBULATORY - MEDICINE [place] [facility] [place] [facility] May 21, 2024 09:45 AM AMBULATORY - MEDICINE [place] [facility] [place] [facility] Jun 10, 2024 09:30 AM AMBULATORY - MEDICINE [place] [facility] [place] [facility] Jun 23, 2024 08:00 [facility] Lab Results: +/- 30 days of the encounter This section includes the Chemistry and Hematology Lab Results on record with AL for the patient. Radiology Reports and Pathology Reports are provided separately, in subsequent sections. Lab Results This section contains the Chemistry/Hematology Results that were resulted 30 days before or 30 daysafter the date of the Encounter. Date/Time Source Result Type Result - Unit Interpretation Reference Range Comment Nov 27, 2023 10:26 AM [facility] HEMOGLOBIN A1C PANEL Specimen Type: BLOOD Comment: [...] Nov 27, 2023 10:16 AM Reporting Lab: [facility] [place] [facility] [address] [facility] [address] Performing Lab: [facility] [place] [facility] [address] [facility] [address] HEMOGLOBIN A1C 8.2 H 4.0-5.6 Nov 27, 2023 10:26 AM [facility] CBC Specimen Type: BLOOD No comment entered. Ordering Provider: SHANDA BECK Report Released Date/Time: Nov 27, 2023 10:17 AM Reporting Lab: [facility] [address] [facility] [address] Performing Lab: [facility] [address] WBC 5.30 10*3/uL 4.50-11.00 RBC 5.70 10*6/uL H 4.23-5.66 HGB 17.2 g/dL H 12.8-17 HCT 51.0 H 39.2-50.4 MCV 89.5 fL 82-99 MCHC 33.7 g/dL 30.8-35.1 PLT 131 10*3/uL L 140-360 RDW-CV 12.8 12.0-16.0 MCH 30.2 pg 26.2-32.6 Nov 25, 2023 09:22 AM [facility] MICROALBUMIN CREATININE RATIO PANEL Spe cimen Type: URINE No comment entered. Ordering Provider: VENKATA MARES Report Released Date/Time: Sep 17, 2023 09:09 AM Reporting Lab: [facility] [address] [facility] [address] Performing Lab: [facility] [address] [facility] [address] MICROALBUMIN/ CREATININE RATIO 28.1 mg/g 0-29.9 MICROALBUMIN, QUANTITATIVE 2.0 mg/dL RR UNAVAIL CREATININE URINE 71.08 mg/dL Nov 25, 2023 09:22 AM [facility] VITAMIN D 25-OH (Therapy monitor) Speci men [...] For additional information, please refer to http://education .ivi[employer]com/faq/NMZ773 (This link is being provided for informational/ educational purposes only.) This test was developed and its analytical performance characteristics have been determined by [employer] [place], [place]. It has not been cleared or approved by the U.S. Food and Drug Administration. This assay has been validated pursuant to the CLIA regulations and is used for clinical purposes. This test was developed and its analytical performance characteristics have been determined by [employer] [place]. It has not been cleared or approved by the U.S. Food and Drug Administration. This assay has been validated pursuant to the CLIA regulations and is used for clinical purposes. Test Performed by [facility], [facility], [address] [place] [address] Mohit Cazares M.D., Ph.D., Director of Laboratories , CLIA [id number] TEST PERFORMED AT: , Ordering Provider: VENKATA MARES Report Released Date/Time: Nov 20, 2023 07:33 AM Reporting Lab: [address] [address] Performing Lab: [facility] [address] [address] VITAMIN D, 25-OH, TOTAL 9 ng/mL L 30-100 VITAMIN D, 25-OH, D3 9 ng/mL VITAMIN D, 25-OH, D2 <4 ng/mL Nov 25, 2023 09:22 AM [facility] VITAMIN B12 Specimen Type: SERUM No comment entered. Ordering Provider: VENKATA MARES Report Released Date/Time: Nov 20, 2023 07:33 AM Reporting Lab: [facility] [address] [facility] [address] Performing Lab: [address] [address] VITAMIN B12 815 pg/mL 200-900 Nov 25, 2023 09:22 AM [facility] LIPID PANEL FASTING Specimen Type: SERUM No comment entered. Ordering Provider: VENKATA MARES Report Released Date/Time: Nov 20, 2023 07:33 AM Reporting Lab: [facility] [address] [facility] [address] Performing Lab: [address] [address] CHOLESTEROL 228 mg/dL H TRIGLYCERIDE 359 mg/dL H 0-150 LDL calculated Reflex to dLDL mg/dL 0-129 CHOL/HDL 7.4 HDL CHOLESTEROL 31 mg/dL L 40-60 LDL DIRECT 145 mg/dL H Nov 25, 2023 09:22 AM [facility] LIVER FUNCTION Specimen Type: SERUM No comment entered. Ordering Provider: VENKATA MARES Report Released Date/Time: Nov 20, 2023 07:33 AM Reporting Lab: [facility] [address] [facility] [address] Performing Lab: [address] [address] PROTEIN,TOTAL 7.6 g/dL 6.0-8.3 ALBUMIN 3.9 g/dL 3.5-5.0 ALKALINE PHOSPHATASE 91 U/L 40-150 AST 27 U/L 5-34 ALT 54 U/L BILIRUBIN, TOTAL 0.8 mg/dL 0.2-1.2 Nov 25, 2023 09:22 AM [facility] BASIC METABOLIC PANEL (fasting) Specime n Type: SERUM No comment entered. Ordering Provider: VENKATA MARES Report Released Date/Time: Nov 20, 2023 07:33 AM Reporting Lab: [address] [address] Performing Lab: [address] [address] UREA NITROGEN 15 mg/dL 7-25 GLUCOSE 271 [...] and tobacco- related health factors from the AL facility where the Encounter took place. Current Smoking Status This section includes the most current smoking, or tobacco-related health factor, from the AL facility where the Encounter took place. Date/Time Current Smoking Status Comment Facil tash Mar 11, 2023 08:30 AM [facility]-TOBACCO FORMER USER [facility] Tobacco Use History This section includes a history of the smoking, or tobacco-related health factors, that were collected on or before the date of the Encounter. The data comes from the AL facility where the Encounter took place. Date/Time Smoking Status/Tobacco Use Comment F acility Mar 11, 2023 08:30 AM [facility]-TOBACCO QUIT 15 YRS OR MORE [facility] Dec 27, 2020 02:00 PM VA-TOBACCO FORMER USER [facility] Dec 27, 2020 02:00 PM AL-TOBACCO QUIT 15 YRS OR MORE [facility] Advance Directives: All historical and current Section Date Range: From patient's date of to the date document was created. This section includes ALL of a patient's completed or amended AL Advance and Rescinded Directives. The entries below indicate that a directive exists for the patient, but an actual copy is not included with this document. The data comes from all AL facilities. Date Advance Directives Provider Source May [...] the Encounter. The data comes from all [place] treatment facilities. 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 MATERIAL HANDLER (Req'g Loc Img Loc: OUTSIDE GENERAL RADIOLOGY Service: Unknown (Case [id number] COMPLETE) OUTSIDE MRI CERVICAL SPINE (RAD Detailed) CPT:47068 Reason for Study: acute on chronic neck, mid and low back pain with radiation LLE Clinical History: no hx trauma Report Status: Electronically Filed Date Reported: DEC 25, 2023 Report: Community care exam; see CPRS/JLV for outside radiology report/results Impression: Community care exam; see CPRS/JLV for outside radiology report/results Primary Diagnostic Code: VERIFIED BY: / *ELECTRONICALLY FILED* [facility] [place] [facility] Encounter Notes: All associated encounter notes This section contains the clinical notes associated to the Encounter. Date/Time Encounter Note(s) Provider Source Dec 22, 2023 03:53 PM ADMINISTRATIVE NOT E: LOCAL TITLE: ADMINISTRATIVE NOTE STANDARD TITLE: ADMINISTRATIVE NOTE DATE OF NOTE: DEC 22, 2023@15:53 ENTRY DATE: DEC 22, 2023@15:53:07 AUTHOR: JONNIE VIZCAINO COSIGNER: URGENCY: STATUS: COMPLETED THIS SHANK SKINNER HAD SPOKEN TO TO REMIND OF F2F APPT. ON 12/29/2023 AT 09:30 WITH CWM/SO/PACT EIGHT PROVIDER FOR ANNUAL. THIS SHANK SKINNER ALSO REMINDED TO COMPLETE FASTING LABS PRIOR TO APPT. DATE. 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
--- OUTSIDE RECORDS SUMMARY | 2024-09-30 08:36 | XMS_ITS | Encounter Summary ---
Author Name [facility] [place] Address [address] [place] [address] Care Team Providers Care Groundman Name Role Phone CHANI RHODES Primary Care [...] [facility] February 03, 2022 [id number] [phone] EMERITA BAUTISTA PATIENT [facility] MEDICAID MEDICAID MEDIC AID Oct 06, 2013 MEDICAI D [id number] EMERITA BAUTISTA PATIENT MEDICARE (WNR) MEDICARE (M) PART A Mar 06, 2015 PART A [id number] EMERITA BAUTISTA PATIENT MEDICARE (WNR) MEDICARE (M) PART B Mar 06, 2015 PART B [id number] [phone] EMERITA BAUTISTA PATIENT MEDICARE (WNR) MEDICARE (M) PART B Mar 06, 2015 PART B [id number] EMERITA BAUTISTA PATIENT MEDICARE (WNR) MEDICARE (M) PART A Mar 06, 2015 PART A [id number] EMERITA BAUTISTA PATIENT MEDICARE (WNR) MEDICARE (M) PART B Mar 06, 2015 PART B [id number] EMERITA BAUTISTA PATIENT MEDICARE (WNR) MEDICARE (M) PART B Mar 06, 2015 PART B [id number] EMERITA BAUTISTA PATIENT MEDICARE (WNR) MEDICARE (M) PART A Mar 06, 2015 PART A [id number] EMERITA BAUTISTA PATIENT Selected Encounter This section includes the information on record at [place] for the Encounter. Date/Time Encounter Type Encounter Description Reason Pro vider Source Dec 12, 2023 09:18 AM Outpatient Encounter PRIMARY CARE/MEDICINE IHE Encounter Template Text not used by [place] Plan of Treatment: Future Appointments (+ 6 [...] - MEDICINE [place] [facility] [place] [facility] Dec 29, 2023 09:30 AM [facility]ATORY - [facility]ICINE [facility] February 10, 2024 02:00 PM AMBULATORY - MEDICINE [facility] [place] [facility] Mar 08, 2024 09:00 AM AMBULATORY - MEDICINE [facility] Mar 08, 2024 11:30 AM AMBULATORY - NONE [facility] [place] [facility] Mar 22, 2024 02:15 PM AMBULATORY - MEDICINE [facility] [place] [facility] Apr 06, 2024 03:00 PM AMBULATORY - MEDICINE [facility] [place] [facility] Apr 14, 2024 09:30 AM AMBULATORY - MEDICINE [facility] [place] [facility] Apr 19, 2024 03:00 PM AMBULATORY - MEDICINE [facility] Apr 20, 2024 09:00 AM AMBULATORY - MEDICINE [place] [facility] [place] [facility] Apr 28, 2024 03:00 PM AMBULATORY - MEDICINE [place] [facility] [place] [facility] May 21, 2024 09:45 AM AMBULATORY - MEDICINE [place] [facility] [place] [facility] Jun 10, 2024 09:30 AM [facility] [facility] Lab Results: +/- 30 days of the [...] Range Comment Nov 27, 2023 10:26 AM [facility] HEMOGLOBIN A1C PANEL Specimen Type: [...] Nov 27, 2023 10:16 AM Reporting Lab: [facility] [address] [facility] [address] Performing Lab: [facility] [address] HEMOGLOBIN A1C 8.2 H 4.0-5.6 Nov 27, 2023 10:26 AM [facility] CBC Specimen Type: BLOOD No comment entered. Ordering Provider: SHANDA BECK Report Released Date/Time: Nov 27, 2023 10:17 AM Reporting Lab: [facility] [address] [facility] [address] Performing Lab: [facility] [address] [address] WBC 5.30 10*3/uL 4.50-11.00 RBC 5.70 10*6/uL H 4.23-5.66 HGB 17.2 g/dL H 12.8-17 HCT 51.0 H 39.2-50.4 MCV 89.5 fL 82-99 MCHC 33.7 g/dL 30.8-35.1 PLT 131 10*3/uL L 140-360 RDW-CV 12.8 12.0-16.0 MCH 30.2 pg 26.2-32.6 Nov 25, 2023 09:22 AM [facility] MICROALBUMIN CREATININE RATIO PANEL Spe cimen Type: URINE No comment entered. Ordering Provider: VENKATA MARES Report Released Date/Time: Sep 17, 2023 09:09 AM Reporting Lab: [facility] [address] [facility] [address] Performing Lab: [facility] [address] [facility] [address] MICROALBUMIN/ CREATININE RATIO 28.1 mg/g 0-29.9 MICROALBUMIN, QUANTITATIVE 2.0 mg/dL RR UNAVAIL CREATININE URINE 71.08 mg/dL Nov 25, 2023 09:22 AM [facility] VITAMIN D 25-OH (Therapy monitor) Speci men [...] For additional information, please refer to http://education .[employer]/faq/YPC176 (This link is being provided for informational/ educational purposes only.) This test was developed and its analytical performance characteristics have been determined by [facility] [place], [place]. It has not been cleared or approved by the U.S. Food and Drug Administration. This assay has been validated pursuant to the CLIA regulations and is used for clinical purposes. This test was developed and its analytical performance characteristics have been determined by [facility] [place], [place]. It has not been cleared or approved by the U.S. Food and Drug Administration. This assay has been validated pursuant to the CLIA regulations and is used for clinical purposes. Test Performed by [facility], [facility], [address] [place] [address] Mohit Cazares M.D., Ph.D., Director of Laboratories , CLIA [id number] TEST PERFORMED AT: , Ordering Provider: VENKATA MARES Report Released Date/Time: Nov 20, 2023 07:33 AM Reporting Lab: [address] [address] Performing Lab: [facility] [address] [address] VITAMIN D, 25-OH, TOTAL 9 ng/mL L 30-100 VITAMIN D, 25-OH, D3 9 ng/mL VITAMIN D, 25-OH, D2 <4 ng/mL Nov 25, 2023 09:22 AM [facility] VITAMIN B12 Specimen Type: SERUM No comment entered. Ordering Provider: VENKATA MARES Report Released Date/Time: Nov 20, 2023 07:33 AM Reporting Lab: [address] [address] Performing Lab: [address] [address] VITAMIN B12 815 pg/mL 200-900 Nov 25, 2023 09:22 AM [facility] LIPID PANEL FASTING Specimen Type: SERUM No comment entered. Ordering Provider: VENKATA MARES Report Released Date/Time: Nov 20, 2023 07:33 AM Reporting Lab: [address] [address] Performing Lab: [address] [address] CHOLESTEROL 228 mg/dL H TRIGLYCERIDE 359 mg/dL H 0-150 LDL calculated Reflex to dLDL mg/dL 0-129 CHOL/HDL 7.4 HDL CHOLESTEROL 31 mg/dL L 40-60 LDL DIRECT 145 mg/dL H Nov 25, 2023 09:22 AM [facility] BASIC METABOLIC PANEL (fasting) Specime n Type: SERUM No comment entered. Ordering Provider: VENKATA MARES Report Released Date/Time: Nov 20, 2023 07:33 AM Reporting Lab: [facility] [address] [facility] [address] Performing Lab: [address] [address] UREA NITROGEN 15 mg/dL 7-25 GLUCOSE 271 mg/dL H 65-100 SODIUM 139 mmol/L 135-145 POTASSIUM 4.5 mmol/L 3.5-5.0 CHLORIDE 106 mmol/L 100-110 CO2 23 meq/L 20-30 CREATININE, Serum 1.15 mg/dL 0.50-1.40 eGFR(CKD-EPI 2020) 73 mL/min >60 Nov 25, 2023 09:22 AM [facility] LIVER FUNCTION Specimen Type: SERUM No comment entered. Ordering Provider: VENKATA MARES Report Released Date/Time: Nov 20, 2023 07:33 AM Reporting Lab: [facility] [address] [facility] [address] Performing Lab: [address] [address] PROTEIN,TOTAL 7.6 g/dL 6.0-8.3 ALBUMIN 3.9 g/dL [...] 11, 2023 08:30 AM [facility]-TOBACCO FORMER USER [facility] Tobacco Use History This section includes a history of the smoking, or tobacco-related health factors, that were collected on or before the date of the Encounter. The data comes from the [place] facility where the Encounter took place. Date/Time Smoking Status/Tobacco Use Comment F acility Mar 11, 2023 08:30 AM [place]-TOBACCO QUIT 15 YRS OR MORE [facility] Dec 27, 2020 02:00 PM [place]-TOBAC[place] FORMER USER [facility] Dec 27, 2020 02:00 PM [place]-TOBACCO QUIT 15 YRS OR MORE [facility] Advance Directives: All historical and current Section Date Range: From patient's date of to the date document was created. This section includes ALL of a patient's completed or amended [place] Advance and Rescinded Directives. The entries below indicate that a directive exists for the patient, but an actual copy is not included with this document. The data comes from all [place] facilities. 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 AND SELECTION SPECIALIST (Req'g Loc Img Loc: OUTSIDE GENERAL RADIOLOGY Service: Unknown (Case [id number] COMPLETE) OUTSIDE MRI CERVICAL SPINE (RAD Detailed) CPT:96624 Reason for Study: acute on chronic neck, mid and low back pain with radiation LLE Clinical History: no hx trauma Report Status: Electronically Filed Date Reported: DEC 25, 2023 Report: Community care exam; see CPRS/JLV for outside radiology report/results Impression: Community care exam; see CPRS/JLV for outside radiology report/results Primary Diagnostic Code: VERIFIED BY: / *ELECTRONICALLY FILED* [facility] Encounter Notes: All associated encounter notes This section contains the clinical notes associated to the Encounter. Date/Time Encounter Note(s) Provider Source Dec 12, 2023 09:18 AM PRIMARY CARE NOTE: LOCAL TITLE: WALK-IN NOTE PRIMARY CARE (T) STANDARD TITLE: PRIMARY CARE NOTE DATE OF NOTE: DEC 12, 2023@09:18 ENTRY DATE: DEC 12, 2023@09:18:48 AUTHOR: MORENITA SMITH EXP COSIGNER: URGENCY: STATUS: COMPLETED <====Click to Start Advanced Medical Support Crum Lynne presents to the Primary Care clinic with the following request: [ ]Medication Renewal/Refill [ ]Consultation with Team RN [ X ]Symptoms BACK PAIN [ ]Other The Crum Lynne states they are: [ X ]Waiting [ ]Not Waiting Yes Walk in visit scheduled with PACT Nurse [ X ] At this encounter the Crum Lynne's demographics were verified. [ X ] At this encounter the Crum Lynne's Insurance information was verified. [ X ] At this encounter the below scheduled visits for the were discussed and appointment reminder card was offered. Future appointments: 12/29/2023 09:30 CWM/SO/PACT [facility] 01/08/2024 15:00 CWM/SO/PHARM/PACT 2 03/08/2024 09:00 CWM/SO/PACT [facility] 04/20/2024 09:00 NHM/OPTOMETRY/WELSH/ Walk in for sick call, C/O back pain x 2 weeks /es/ MORENITA SMITH AMSA Signed: 12/12/2023 09:19 Receipt Acknowledged By: 12/16/2023 15:41 /es/ NUHA SYKESN RN-BC REGISTERED NURSE 12/12/2023 09:27 /es/ CHANI RHODES APRN-C CERTIFIED NURSE PRACTITIONER 12/12/2023 09:22 /es/ BIANCA COELLO GUEST SERVICE AGENT RN MORENITA SMITH
--- OUTSIDE RECORDS SUMMARY | 2024-09-30 08:37 | XMS_ITS ---
Author Name [facility] [place] Organization [place] Address [address] [place] [address] Care Team Providers Care Hairspring Cutter Name Role Phone CHANI RHODES Primary Care [...] [facility] February 03, 2022 [id number] EMERITA BAUTISTA PATIENT [facility] MEDICAID MEDICAID MEDIC AID Oct 06, 2013 MEDICAI D [id number] EMERITA BAUTISTA PATIENT MEDICARE (WNR) MEDICARE (M) PART A Mar 06, 2015 PART A [id number] EMERITA BAUTISTA PATIENT MEDICARE (WNR) MEDICARE (M) PART B Mar 06, 2015 PART B [id number] EMERITA BAUTISTA PATIENT MEDICARE (WNR) MEDICARE (M) PART B Mar 06, 2015 PART B [id number] [phone] EMERITA BAUTISTA PATIENT MEDICARE (WNR) MEDICARE (M) PART A Mar 06, 2015 PART A [id number] EMERITA BAUTISTA PATIENT MEDICARE (WNR) MEDICARE (M) PART B Mar 06, 2015 PART B [id number] [phone] EMERITA BAUTISTA PATIENT MEDICARE (WNR) MEDICARE (M) PART B Mar 06, 2015 PART B [id number] [phone] EMERITA BAUTISTA PATIENT MEDICARE (WNR) MEDICARE (M) PART A Mar 06, 2015 PART A [id number] EMERITA BAUTISTA PATIENT Selected Encounter This section includes the information on record at [place] for the Encounter. Date/Time Encounter Type Encounter Description Reason Pro vider Source Dec 25, 2023 03:07 PM Outpatient Encounter COMMUNITY CARE CONSULT IHE Encounter Template Text not used by [place] Plan of Treatment: Future Appointments (+ 6 months) and Future Tests (+/- 45 days) The Plan of Treatment section includes future care activities for the patient from all [place] [facility] This section includes future appointments and future orders which are active, pending or scheduled. Future Appointments This section includes appointments that were scheduled to occur 6 months from the date of the Encounter, up to a maximum of 20 appointments. The data comes from all [place] treatment facilities. Appointment Date/Time Appointment Type Appointme nt Facility Name Dec 29, 2023 09:30 AM AMBULATORY - MEDICINE [facility] February 10, 2024 02:00 PM AMBULATORY - MEDICINE [place] [facility] [place] [facility] Mar 08, 2024 09:00 AM AMBULATORY - MEDICINE [facility] Mar 08, 2024 11:30 AM AMBULATORY - NONE [place] [facility] [place] [facility] Mar 22, 2024 02:15 PM AMBULATORY - MEDICINE ND [facility] [place] [facility] Apr 06, 2024 03:00 PM AMBULATORY - MEDICINE ND [facility] [place] [facility] Apr 14, 2024 09:30 AM AMBULATORY - MEDICINE ND [facility] [place] [facility] Apr 19, 2024 03:00 PM AMBULATORY - MEDICINE [facility] Apr 20, 2024 09:00 AM AMBULATORY - MEDICINE [place] [facility] [facility] Apr 28, 2024 03:00 PM [facility] May 21, 2024 09:45 AM AMBULATORY - MEDICINE [place] [facility] [place] [facility] Jun 10, 2024 09:30 AM [facility] Jun 23, 2024 08:00 AM [facility] Lab Results: +/- 30 days of the encounter This section includes the Chemistry and Hematology Lab Results on record with [place] for the patient. Radiology Reports and Pathology Reports are provided separately, in subsequent sections. Lab Results This section contains the Chemistry/Hematology Results that were resulted 30 days before or 30 daysafter the date of the Encounter. Date/Time Source Result Type Result - Unit Interpretation Reference Range Comment Nov 27, 2023 10:26 AM [facility] HEMOGLOBIN A1C PANEL Specimen Type: BLOOD Comment: Values obtained from A1C measurements can vary. For atypical A1C assays, a reported value of 7.0 could actually be between 6.72 and 7.28 if measured by a reference method. A reported value of 9.0 could actually be between 8.73 and 9.27. Ref: http://www.ngs p.org/CAPdata. asp Ordering Provider: TAO BECK Report Released Date/Time: Nov 27, 2023 10:16 AM [facility] [address] [address] Performing Lab: [address] [address] HEMOGLOBIN A1C 8.2 H 4.0-5.6 Nov 27, 2023 10:26 AM [facility] CBC Specimen Type: BLOOD No comment entered. Ordering Provider: TAO BECK Report Released Date/Time: Nov 27, 2023 10:17 AM Reporting [facility] [address] [address] Performing Lab: [address] [address] WBC 5.30 10*3/uL 4.50-11.00 RBC 5.70 10*6/uL H 4.23-5.66 HGB 17.2 g/dL H 12.8-17 HCT 51.0 H 39.2-50.4 MCV 89.5 fL 82-99 MCHC 33.7 g/dL 30.8-35.1 PLT 131 10*3/uL L 140-360 RDW-CV 12.8 12.0-16.0 MCH 30.2 pg 26.2-32.6 Social History: Smoking Status (Most current) and Tobacco Use (All prior to encounter date) This section includes the most current, and the historical, smoking and tobacco- related health factors from the [place] facility where the Encounter took place. Current Smoking Status This section includes the most current smoking, or tobacco-related health factor, from the [place] facility where the Encounter took place. Date/Time Current Smoking Status Comment Facil ity Mar 11, 2023 08:30 AM [place]-TOBACCO FORMER USER [facility] Tobacco Use History This section includes a history of the smoking, or tobacco-related health factors, that were collected on or before the date of the Encounter. The data comes from the [place] facility where the Encounter took place. Date/Time Smoking Status/Tobacco Use Comment F acility Mar 11, 2023 08:30 AM [place]-TOBACCO QUIT 15 YRS OR MORE [facility] Dec 27, 2020 02:00 PM [place]-TOBACCO FORMER USER [place] [facility] [place] [facility] Dec 27, 2020 02:00 PM [place]-TOBACCO QUIT 15 YRS OR MORE [facility] Advance Directives: All historical and current Section Date Range: From patient's date of to the date document was created. This section includes ALL of a patient's completed or amended [place] Advance and Rescinded Directives. The entries below indicate that a directive exists for the patient, but an actual copy is not included with this document. The data comes from all [place] facilities. Date Advance Directives Provider Source May [...] the Encounter. The data comes from all [place] treatment facilities. Date/Time Radiology Report Provider Source Dec 25, 2023 07:00 AM OUTSIDE MRI CERVIC AL SPINE: EMERITA BAUTISTA [id number] -[id number] M Exm Date: DEC 25, 2023@07:00 Req Phys: CHANI RHODES Loc: CWM/SO/SICK CALL HEART DOCTOR (Req'g Loc Img Loc: OUTSIDE GENERAL RADIOLOGY Service: Unknown (Case [id number] COMPLETE) OUTSIDE MRI CERVICAL SPINE (RAD Detailed) CPT:49906 Reason for Study: acute on chronic neck, mid and low back pain with radiation LLE Clinical History: no hx trauma Report Status: Electronically Filed Date Reported: DEC 25, 2023 Report: Community care exam; see CPRS/JLV for outside radiology report/results Impression: Community care exam; see CPRS/JLV for outside radiology report/results Primary Diagnostic Code: VERIFIED BY: / *ELECTRONICALLY FILED* [place] [facility] [place] [facility] Encounter Notes: All associated encounter notes This section contains the clinical notes associated to the Encounter. Date/Time Encounter Note(s) Provider Source Jan 09, 2024 03:58 PM ADDENDUM: LOCAL TITLE: Addendum STANDARD TITLE: ADDENDUM DATE OF NOTE: JAN 09, 2024@15:58:30 ENTRY DATE: JAN 09, 2024@15:58:31 AUTHOR: BHARGAV WELCH EXP COSIGNER: URGENCY: STATUS: COMPLETED Clarified with and he is agreeable to CC ortho consult to [facility] for consult and will advise CC or PACT if needs further assistance. /lora/ NIMCO SYKES RN-BC REGISTERED NURSE Signed: 01/09/2024 15:59 Receipt Acknowledged By: 01/12/2024 10:01 /lora/ SKYLER HUNTER [facility] NIMCO RN MAURICIO --- Original Document --- 12/25/23 COMMUNITY CARE-CARE COORDINATION PLAN NOTE: Community Care- Ortho consult [id number] Chief Complaint: acute on chronic neck and back pain Regional Operations Manager spoke with Quinton regarding referral to see community [facility] ortho boarding specialist. He does not want to go to [facility] which is the only ortho spine location in [facility] and he states he does not want to travel to [place] or [place] at this time. Quinton had MRI today at [facility]. Results still pending in CIS. MRI Lumbar Spine W/O Afrbeduo47/21/24 In Progress MRI Thoracic Spine W/O Contrast 12/25/23 In Progress MRI Cervical Spine W/O Contrast 12/25/23 In Progress Quinton would like to wait for his MRI results and then requesting guidance on next steps and recommendations for follow up. Thank you /lora/ SKYLER HUNTER [facility] NIMCO MARTÍNEZ Signed: 12/25/2023 15:17 Receipt Acknowledged By: 12/26/2023 08:09 /lora/ JASMYNE SCHMITZ CERTIFIED NURSE PRACTITIONER 12/31/2023 08:38 /lora/ VENKATA MARES MD PRIMARY CARE PHYSICIAN 12/25/2023 16:08 /lora/ NIMCO SYKES REGISTERED NURSE 12/26/2023 ADDENDUM STATUS: COMPLETED Please notify patient of MRI results: neck shows some spurring (like a bone spur) mid back is normal low back shows bulging discs at all levels. Since he doesn't want to go to spine clinic, other options are neurosurgery, PT, chiropractor. /lora/ JASMYNE SCHMITZ CERTIFIED NURSE PRACTITIONER Signed: 12/26/2023 08:13 Receipt Acknowledged By: 12/26/2023 15:41 /lora/ NIMCO SYKES REGISTERED NURSE 12/26/2023 ADDENDUM STATUS: COMPLETED Called and provided him with message from sick call provider noted above and he deferred treatment decision at this time and will discuss options with pcp at next office visit on 12/29/23 /NIMCO Spear RN-JUSTIN REGISTERED NURSE Signed: 12/26/2023 15:44 01/06/2024 ADDENDUM STATUS: COMPLETED Please advise CC on how to proceed with ortho consult. Thank you /bucky HUNTER [facility] NIMCO RN MAURICIO Signed: 01/06/2024 12:13 Receipt Acknowledged By: 01/09/2024 15:58 /NIMCO Spear RN-JUSTIN REGISTERED NURSE BHARGAV WELCH [facility] Jan 06, 2024 12:12 PM ADDENDUM: LOCAL TITLE: Addendum STANDARD TITLE: ADDENDUM DATE OF NOTE: JAN 06, 2024@12:12:52 ENTRY DATE: JAN 06, 2024@12:12:53 AUTHOR: SKYLER HUNTER EXP COSIGNER: URGENCY: STATUS: COMPLETED Please advise CC on how to proceed with ortho consult. Thank you /bucky HUNTER [facility] NIMCO CRUZ MAURICIO Signed: 01/06/2024 12:13 Receipt Acknowledged By: 01/09/2024 15:58 /NIMCO Spear RN-JUSTIN REGISTERED NURSE --- Original Document --- 12/25/23 COMMUNITY CARE-CARE COORDINATION PLAN NOTE: Community Care- Ortho consult [id number] Chief Complaint: acute on chronic neck and back pain Regional Operations Manager spoke with Clifton regarding referral to see community care ortho boarding specialist. He does not want to go to [facility] which is the only ortho spine location in [facility] and he states he does not want to travel to [place] or [place] at this time. had MRI today at [facility]. Results still pending in CIS. MRI Lumbar Spine W/O Sqafcpbc96/21/24 In Progress MRI Thoracic Spine W/O Contrast 12/25/23 In Progress MRI Cervical Spine W/O Contrast 12/25/23 In Progress would like to wait for his MRI results and then requesting guidance on next steps and recommendations for follow up. Thank you /lora/ SKYLER HUNTER [facility] BSHua MARTÍNEZ Signed: 12/25/2023 15:17 Receipt Acknowledged By: 12/26/2023 08:09 /lora/ JASMYNE SCHMITZ CERTIFIED NURSE PRACTITIONER 12/31/2023 08:38 /es/ VENKATA MARES MD PRIMARY CARE PHYSICIAN 12/25/2023 16:08 /lora/ NIMCO SYKES REGISTERED NURSE 12/26/2023 ADDENDUM STATUS: COMPLETED Please notify patient of MRI results: neck shows some spurring (like a bone spur) mid back is normal low back shows bulging discs at all levels. Since he doesn't want to go to spine clinic, other options are neurosurgery, PT, chiropractor. /lora/ JASMYNE SCHMITZ CERTIFIED NURSE PRACTITIONER Signed: 12/26/2023 08:13 Receipt Acknowledged By: 12/26/2023 15:41 /lora/ NIMCO SYKES REGISTERED NURSE 12/26/2023 ADDENDUM STATUS: COMPLETED Called and provided him with message from sick call provider noted above and he deferred treatment decision at this time and will discuss options with pcp at next office visit on 12/29/23 /lora/ NIMCO SYKES REGISTERED NURSE Signed: 12/26/2023 15:44 01/09/2024 ADDENDUM STATUS: UNSIGNED You may not VIEW this UNSIGNED Addendum. SKYLER HUNTER [place] [facility] [place] [facility] Dec 26, 2023 08:12 AM ADDENDUM: LOCAL TITLE: Addendum STANDARD TITLE: ADDENDUM DATE OF NOTE: DEC 26, 2023@08:12:50 ENTRY DATE: DEC 26, 2023@08:12:51 AUTHOR: CHANI RHODES EXP COSIGNER: URGENCY: STATUS: COMPLETED Please notify patient of MRI results: neck shows some spurring (like a bone spur) mid back is normal low back shows bulging discs at all levels. Since he doesn't want to go to spine clinic, other options are neurosurgery, PT, chiropractor. /lora/ JASMYNE SCHMITZ CERTIFIED NURSE PRACTITIONER Signed: 12/26/2023 08:13 Receipt Acknowledged By: 12/26/2023 15:41 /lora/ NIMCO SYKES REGISTERED NURSE --- Original Document --- 12/25/23 COMMUNITY CARE-CARE COORDINATION PLAN NOTE: Community Care- Ortho consult [id number] Chief Complaint: acute on chronic neck and back pain Regional Operations Manager spoke with Quinton regarding referral to see community care ortho boarding specialist. He does not want to go to [facility] which is the only ortho spine location in [facility] and he states he does not want to travel to [place] or [place] at this time. Quinton had MRI today at [facility]. Results still pending in CIS. MRI Lumbar Spine W/O Clbrtdjs11/21/24 In Progress MRI Thoracic Spine W/O Contrast 12/25/23 In Progress MRI Cervical Spine W/O Contrast 12/25/23 In Progress Clifton would like to wait for his MRI results and then requesting guidance on next steps and recommendations for follow up. Thank you /bucky HUNTER [facility] NIMCO MARTÍNEZ Signed: 12/25/2023 15:17 Receipt Acknowledged By: 12/26/2023 08:09 /JASMYNE Spangler CERTIFIED NURSE PRACTITIONER * AWAITING SIGNATURE * VENKATA MARES 12/25/2023 16:08 /NIMCO Spear REGISTERED NURSE CHANI RHODES [place] [facility] [place] [facility] Dec 25, 2023 03:07 PM NONVA NOTE: LOCAL TITLE: COMMUNITY CARE-CARE COORDINATION PLAN NOTE STANDARD TITLE: NONVA NOTE DATE OF NOTE: DEC 25, 2023@15:07 ENTRY DATE: DEC 25, 2023@15:07:20 AUTHOR: SKYLER HUNTER EXP COSIGNER: URGENCY: STATUS: COMPLETED COMMUNITY CARE-CARE COORDINATION PLAN NOTE Has ADDENDA Community Care- Ortho consult [id number] Chief Complaint: acute on chronic neck and back pain Regional Operations Manager spoke with regarding referral to see community care ortho boarding specialist. He does not want to go to [facility] which is the only ortho spine location in [facility] and he states he does not want to travel to [place] or [place] at this time. had MRI today at [facility]. Results still pending in CIS. MRI Lumbar Spine W/O Gslzvinx88/21/24 In Progress MRI Thoracic Spine W/O Contrast 12/25/23 In Progress MRI Cervical Spine W/O Contrast 12/25/23 In Progress would like to wait for his MRI results and then requesting guidance on next steps and recommendations for follow up. Thank you /lora/ SKYLER HUNTER [facility] BSN RN MAURICIO Signed: 12/25/2023 15:17 Receipt Acknowledged By: 12/26/2023 08:09 /lora/ JASMYNE SCHMITZ CERTIFIED NURSE PRACTITIONER 12/31/2023 08:38 /lora/ VENKATA MARES MD PRIMARY CARE PHYSICIAN 12/25/2023 16:08 /lora/ NIMCO SYKES REGISTERED NURSE 12/26/2023 ADDENDUM STATUS: COMPLETED Please notify patient of MRI results: neck shows some spurring (like a bone spur) mid back is normal low back shows bulging discs at all levels. Since he doesn't want to go to spine clinic, other options are neurosurgery, PT, chiropractor. /lora/ JASMYNE SCHMITZ CERTIFIED NURSE PRACTITIONER Signed: 12/26/2023 08:13 Receipt Acknowledged By: 12/26/2023 15:41 /lora/ NIMCO SYKES REGISTERED NURSE 12/26/2023 ADDENDUM STATUS: COMPLETED Called [place]if[place] and provided him with message from sick call provider noted above and he deferred treatment decision at this time and will discuss options with pcp at next office visit on 12/29/23 /lora/ NIMCO SYKES REGISTERED NURSE Signed: 12/26/2023 15:44 01/06/2024 ADDENDUM STATUS: COMPLETED Please advise CC on how to proceed with ortho consult. Thank you /bucky HUNTER [facility] NUHAN RN MAURICIO Signed: 01/06/2024 12:13 Receipt Acknowledged By: 01/09/2024 15:58 /lora/ NIMCO SYKES RN-BC REGISTERED NURSE 01/09/2024 ADDENDUM STATUS: COMPLETED Clarified with and he is agreeable to CC ortho consult to [facility] for consult and will advise CC or PACT if needs further assistance. /lora/ NIMCO SYKES RN-BC REGISTERED NURSE Signed: 01/09/2024 15:59 Receipt Acknowledged By: * AWAITING SIGNATURE * SKYLER HUNTER [facility]
--- OUTSIDE RECORDS SUMMARY | 2024-09-30 08:37 | XMS_ITS | Encounter Summary ---
Author Name [place] Address [address] [place] [address] Care Team Providers Care Cardiology Associate Name Role Phone CHANI RHODES Primary Care [...] [facility] February 03, 2022 [id number] EMERITA BAUTISTA PATIENT [facility] MEDICAID MEDICAID MEDIC AID Oct 06, 2013 MEDICAI D [id number] EMERITA BAUTISTA PATIENT MEDICARE (WNR) MEDICARE (M) PART A Mar 06, 2015 PART A [id number] [phone] EMERITA BAUTISTA PATIENT MEDICARE (WNR) MEDICARE (M) PART B Mar 06, 2015 PART B [id number] EMERITA BAUTISTA PATIENT MEDICARE (WNR) MEDICARE (M) PART B Mar 06, 2015 PART B [id number] EMERITA BAUTISTA PATIENT MEDICARE (WNR) MEDICARE (M) PART A Mar 06, 2015 PART A [id number] EMERITA BAUTISTA PATIENT MEDICARE (WNR) MEDICARE (M) PART B Mar 06, 2015 PART B [id number] EMERITA BAUTISTA PATIENT MEDICARE (WNR) MEDICARE (M) PART B Mar 06, 2015 PART B [id number] EMERITA BAUTISTA PATIENT MEDICARE (WNR) MEDICARE (M) PART A Mar 06, 2015 PART A [id number] EMERITA BAUTISTA PATIENT Selected Encounter This section includes the information on record at [place] for the Encounter. Date/Time Encounter Type Encounter Description Reason Pro vider Source Dec 25, 2023 12:00 AM Outpatient Encounter COMMUNITY CARE CONSULT IHE Encounter Template Text not used by [place] Plan of Treatment: Future Appointments (+ 6 months) and Future Tests (+/- 45 days) The Plan of Treatment section includes future care activities for the patient [facility] all [place] [facility] This section includes future appointments and future [...] 2023 09:30 AM AMBULATORY - MEDICINE [facility] February 10, 2024 02:00 PM AMBULATORY - MEDICINE [place] [facility] [place] [facility] Mar 08, 2024 09:00 AM AMBULATORY - MEDICINE [facility] Mar 08, 2024 11:30 AM AMBULATORY - NONE [place] [facility] [place] [facility] Mar 22, 2024 02:15 PM AMBULATORY - MEDICINE [place] [facility] [place] [facility] Apr 06, 2024 03:00 PM AMBULATORY - MEDICINE [place] [facility] [place] [facility] Apr 14, 2024 09:30 AM AMBULATORY - MEDICINE [place] [facility] [place] [facility] Apr 19, 2024 03:00 PM AMBULATORY - MEDICINE [facility] Apr 20, 2024 09:00 AM AMBULATORY - MEDICINE [place] [facility] [place] [facility] Apr 28, 2024 03:00 PM [facility] May 21, 2024 09:45 AM AMBULATORY - MEDICINE [place] [facility] [place] [facility] Jun 10, 2024 09:30 AM [facility] Jun 23, 2024 08:00 AM [facility] Lab Results: +/- 30 days of [...] Range Comment Nov 27, 2023 10:26 AM [facility] HEMOGLOBIN A1C PANEL Specimen Type: BLOOD [...] Nov 27, 2023 10:16 AM Reporting [facility] [address] [address] Performing Lab: [address] [address] HEMOGLOBIN A1C 8.2 H 4.0-5.6 Nov 27, 2023 10:26 AM [facility] CBC Specimen Type: BLOOD No comment entered. Ordering Provider: TAO BECK Report Released Date/Time: Nov 27, 2023 10:17 AM Reporting [facility] [address] [address] Performing Lab: [address] [address] WBC 5.30 10*3/uL 4.50-11.00 RBC 5.70 10*6/uL [...] Facil ity Mar 11, 2023 08:30 AM [place]-TOBACCO FORMER USER [facility] Tobacco Use History This section includes a history of the smoking, or tobacco-related health factors, that were collected on or before the date of the Encounter. The data comes from the [place] facility where the Encounter took place. Date/Time Smoking Status/Tobacco Use Comment F acility Mar 11, 2023 08:30 AM [place]-TOBACCO QUIT 15 YRS OR MORE [facility] Dec 27, 2020 02:00 PM [place]-TOBACCO FORMER USER [place] [facility] [place] [facility] Dec 27, 2020 02:00 PM [place]-TOBACCO QUIT 15 YRS OR MORE [facility] Advance Directives: All historical and current [...] OUTSIDE MRI CERVIC AL SPINE: EMERITA BAUTISTA [id number] -[id number] M Exm Date: DEC 25, 2023@07:00 Req Phys: CHANI RHODES Loc: CWM/SO/SICK CALL FUNDING COORDINATOR (Req'g Loc Img Loc: OUTSIDE GENERAL RADIOLOGY Service: Unknown (Case [id number] COMPLETE) OUTSIDE MRI CERVICAL SPINE (RAD Detailed) CPT:16106 Reason for Study: acute on chronic neck, mid and low back pain with radiation LLE Clinical History: no hx trauma Report Status: Electronically Filed Date Reported: DEC 25, 2023 Report: Community care exam; see CPRS/JLV for outside radiology report/results Impression: Community care exam; see CPRS/JLV for outside radiology report/results Primary Diagnostic Code: VERIFIED BY: / *ELECTRONICALLY FILED* [facility] Encounter Notes: All associated encounter notes This section contains the clinical notes associated to the Encounter. Date/Time Encounter Note(s) Provider Source Dec 25, 2023 12:00 AM NONVA CONSULT: LOCAL TITLE: COMMUNITY CARE-CONSULT RESULT NOTE STANDARD TITLE: NONVA CONSULT DATE OF NOTE: DEC 25, 2023 ENTRY DATE: DEC 26, 2023@08:50:02 AUTHOR: RAJI MONZON MA EXP COSIGNER: URGENCY: STATUS: COMPLETED VistA Imaging - Scanned Document SCANNED DOCUMENT SIGNATURE NOT REQUIRED Electronically Filed: 12/26/2023 by: RAJI MONZON SOFTWARE SYSTEMS ANALYST RAJI MONZON [facility]
--- OUTSIDE RECORDS SUMMARY | 2024-09-30 08:37 | XMS_ITS | Encounter Summary ---
Author Name [facility] [place] [facility] [place] Address [address] [place] [address] Care Team Providers Care Orthotist/Prosthetist Name Role Phone MARELY WILKES Primary Care [...] [facility] H[facility] February 03, 2022 [id number] EMERITA BAUTISTA PATIENT [facility] MEDICAID MEDICAID MEDIC AID Oct 06, 2013 MEDICAI D [id number] EMERITA BAUTISTA PATIENT MEDICARE (WNR) MEDICARE (M) PART A Mar 06, 2015 PART A [id number] EMERITA BAUTISTA PATIENT MEDICARE (WNR) MEDICARE (M) PART B Mar 06, 2015 PART B [id number] EMERITA BAUTISTA PATIENT MEDICARE (WNR) MEDICARE (M) PART B Mar 06, 2015 PART B [id number] EMERITA BAUTISTA PATIENT MEDICARE (WNR) MEDICARE (M) PART A Mar 06, 2015 PART A [id number] [phone] EMERITA BAUTISTA PATIENT MEDICARE (WNR) MEDICARE (M) PART B Mar 06, 2015 PART B [id number] EMERITA BAUTISTA PATIENT MEDICARE (WNR) MEDICARE (M) PART B Mar 06, 2015 PART B [id number] EMERITA BAUTISTA PATIENT MEDICARE (WNR) MEDICARE (M) PART A Mar 06, 2015 PART A [id number] [phone] EMERITA BAUTISTA PATIENT Selected Encounter This section includes the information on record at [place] for the Encounter. Date/Time Encounter Type Encounter Description Reason Pro vider Source Dec 25, 2023 04:08 PM Outpatient Encounter PRIMARY CARE/MEDICINE IHE Encounter Template Text not used by [place] Plan of Treatment: Future Appointments (+ 6 months) and Future Tests (+/- 45 days) The Plan of Treatment section includes future care activities for the patient from all [place] treatmentfacilities. This section includes future appointments and future orders which are active, pending or scheduled. Future Appointments This section includes appointments that were scheduled to occur 6 months from the date of the Encounter, up to a maximum of 20 appointments. The data comes from all [place] treatment facilities. Appointment Date/Time Appointment Type Appointme nt Facility Name Dec 29, 2023 09:30 AM AMBULATORY - [facility]ICINE [facility] February 10, 2024 02:00 PM AMBULATORY - MEDICINE [place] [facility] [place] [facility] Mar 08, 2024 09:00 AM [facility]ULATORY - [facility]ICINE [facility] Mar 08, 2024 11:30 AM AMBULATORY - NONE [place] [facility] [place] [facility] Mar 22, 2024 02:15 PM AMBULATORY - MEDICINE [place] [facility] [place] [facility] Apr 06, 2024 03:00 PM AMBULATORY - MEDICINE [place] [facility] [place] [facility] Apr 14, 2024 09:30 AM AMBULATORY - MEDICINE [place] [facility] [place] [facility] Apr 19, 2024 03:00 PM [facility]ATORY - [facility]ICINE [facility] Apr 20, 2024 09:00 AM AMBULATORY - MEDICINE [place] [facility] [place] [facility] Apr 28, 2024 03:00 PM [facility] [place] [facility] May 21, 2024 09:45 AM AMBULATORY - MEDICINE [place] [facility] [place] [facility] Jun 10, 2024 09:30 AM [facility] [place] [facility] Jun 23, 2024 08:00 [facility] Lab Results: +/- 30 days of the encounter This section includes the Chemistry and Hematology Lab Results on record with [place] for the patient. Radiology Reports and Pathology Reports are provided separately, in subsequent sections. Lab Results This section contains the Chemistry/Hematology Results that were resulted 30 days before or 30 daysafter the date of the Encounter. Date/Time Source Result Type Result - Unit Interpretation Reference Range Comment Nov 27, 2023 10:26 AM [facility] HEMOGLOBIN A1C PANEL Specimen Type: BLOOD [...] Nov 27, 2023 10:16 AM Reporting Lab: [address] [id number] Performing Lab: [address] [id number] HEMOGLOBIN A1C 8.2 H 4.0-5.6 Nov 27, 2023 10:26 AM [facility] CBC Specimen Type: BLOOD No comment entered. Ordering Provider: TAO BECK Report Released Date/Time: Nov 27, 2023 10:17 AM Reporting Lab: [address] [id number] Performing Lab: [address] [id number] WBC 5.30 10*3/uL 4.50-11.00 RBC 5.70 10*6/uL [...] and tobacco- related health factors from the [place] facility where the Encounter took place. Current Smoking Status This section includes the most current smoking, or tobacco-related health factor, from the [place] facility where the Encounter took place. Date/Time Current Smoking Status Comment Facil ity Mar 11, 2023 08:30 AM [place]-TOBACCO FORMER USER [facility] Tobacco Use History This section includes a history of the smoking, or tobacco-related health factors, that were collected on or before the date of the Encounter. The data comes from the [place] facility where the Encounter took place. Date/Time Smoking Status/Tobacco Use Comment F acility Mar 11, 2023 08:30 AM [place]-TOBACCO QUIT 15 YRS OR MORE [facility] Dec 27, 2020 02:00 PM VA-TOBACCO FORMER USER [place] [facility] [place] [facility] Dec 27, 2020 02:00 PM [place]-TOBAC[place] QUIT 15 YRS OR MORE [facility] Advance Directives: All historical and current Section Date Range: From patient's date of to the date document was created. This section includes ALL of a patient's completed or amended [place] Advance and Rescinded Directives. The entries below indicate that a directive exists for the patient, but an actual copy is not included with this document. The data comes from all [place] facilities. Date Advance Directives Provider Source May [...] the Encounter. The data comes from all [place] treatment facilities. Date/Time Radiology Report Provider Source Dec 25, 2023 07:00 AM OUTSIDE MRI CERVIC AL SPINE: EMERITA BAUTISTA [id number] -[id number] M Exm Date: DEC 25, 2023@07:00 Req Phys: MARELY WILKES Loc: CWM/SO/SICK CALL [employer] (Req'g Loc Img Loc: OUTSIDE GENERAL RADIOLOGY Service: Unknown (Case [id number] COMPLETE) OUTSIDE MRI CERVICAL SPINE (RAD Detailed) CPT:30776 Reason for Study: acute on chronic neck, mid and low back pain with radiation LLE Clinical History: no hx trauma Report Status: Electronically Filed Date Reported: DEC 25, 2023 Report: Community care exam; see CPRS/JLV for outside radiology report/results Impression: Community care exam; see CPRS/JLV for outside radiology report/results Primary Diagnostic Code: VERIFIED BY: / *ELECTRONICALLY FILED* [place] [facility] [place] [facility] Encounter Notes: All associated encounter notes This section contains the clinical notes associated to the Encounter. Date/Time Encounter Note(s) Provider Source Dec 25, 2023 04:13 PM RADIOLOGY NONVA NO TE: LOCAL TITLE: NON-VA RADIOLOGY STANDARD TITLE: RADIOLOGY NONVA NOTE DATE OF NOTE: DEC 25, 2023@16:13 ENTRY DATE: DEC 25, 2023@16:14:10 AUTHOR: BHARGAV WELCH COSIGNER: URGENCY: STATUS: COMPLETED NON VA RADIOLOGY This data contains relevant information copied & pasted from a NON [place] source. Efforts are made to ensure congruency between this note & the original. This note not DOES NOT contain the entirety of the original. Please see [facility] to view the original note/document. _ Date: Dec Place/Provider: [facility] Date of Exam: 12-25-2023 Referring Physician: Marely Wilkes [address] [place] [id number] Exam: MR Cervical Spine (C-) CPT 80048 Room Description: [facility] Pion 3T MR Cervical Spine (C-) CPT 97749, MR Lumbar Spine (C-) CPT 03325, MR Thoracic Spine (C-) CPT 61779 Other chronic pain Other chronic pain Department Protocol TECHNIQUE: MRI of the cervical spine was performed without intravenous contrast utilizing sagittal T1, 3D sagittal T2 CUBE with multiplanar reformats, sagittal STIR, axial gradient echo, and axial T2-weighted sequences. MRI of the thoracic spine was performed without intravenous contrast utilizing sagittal T1, sagittal T2, sagittal STIR, axial T1, and axial T2-weighted sequences. MRI of the lumbar spine was performed without intravenous contrast utilizing 3D sagittal T2 CUBE with axial reformats, sagittal T1, and sagittal STIR sequences. COMPARISON: Lumbar spine MRI 06/17/2023. FINDINGS: CERVICAL SPINE: ALIGNMENT, VERTEBRAE, MARROW, AND DISCS: Alignment is normal. Vertebral body heights are preserved. There are multilevel endplate osteophytes. There are minimal Modic type II degenerative endplate signal changes at C5-C6. Intervertebral discs are maintained. POSTERIOR FOSSA AND CORD: Visualized posterior fossa is normal. The cervical cord is normal in signal and caliber. PARASPINAL TISSUES: Soft tissues of the neck are unremarkable. Major cervical flow voids are present. DETAILED FINDINGS BY LEVEL: C2-C3: Facet arthropathy. No significant canal stenosis or neural foraminal narrowing. C3-C4: Minimal central disc protrusion. Facet arthropathy. No significant canal stenosis or neural foraminal narrowing. C4-C5: Minimal disc osteophyte complex with facet and uncovertebral joint spurring, right greater than left. Moderate right neural foraminal narrowing. No significant canal stenosis or left neural foraminal narrowing. C5-C6: Broad disc osteophyte complex with facet and uncovertebral joint spurring. No significant canal stenosis. Moderate to severe left and moderate right neural foraminal narrowing. C6-C7: Broad disc osteophyte complex with right-sided uncovertebral joint spurring. Mild right neural foraminal narrowing. No significant canal stenosis or left neural foraminal narrowing. C7-T1: No significant canal stenosis or neural foraminal narrowing. THORACIC SPINE: ALIGNMENT, VERTEBRAE, MARROW, AND DISCS: Alignment is normal. Vertebral body heights are preserved. Minimal Modic type I signal changes are demonstrated at the anterior aspect of the T4-T5 endplates and there are also minimal Modic type I signal changes at T5-T6 and T6-T7. Multilevel disc desiccation. Intervertebral disc heights are maintained. Multilevel facet arthropathy. CORD: The thoracic cord is normal in signal and contour. PARASPINAL TISSUES: Visualized paraspinal soft tissues are unremarkable. FINDINGS BY LEVEL: No significant central stenosis or neural foraminal narrowing is seen at any level in the thoracic spine. LUMBAR SPINE: ALIGNMENT, VERTEBRAE, MARROW, AND DISCS: Minimal retrolisthesis of L5 on S1, unchanged. Otherwise, alignment is maintained. Vertebral body heights are preserved. There is no significant marrow signal abnormality. Disc desiccation at L5-S1. Intervertebral disc heights are maintained. Posterior annular fissure at L5-S1. CONUS: The conus is normal in signal and contour, with normal level of termination at L2. PARASPINAL TISSUES: The paraspinal soft tissues are unremarkable. DETAILED FINDINGS BY LEVEL: L1-L2: Minimal disc bulge. No significant canal stenosis or neural foraminal narrowing. L2-L3: Minimal disc bulge. Facet arthropathy. No significant canal stenosis. Minimal bilateral neural foraminal narrowing. L3-L4: Minimal disc bulge, ligamentum flavum thickening, and facet arthropathy. No significant canal stenosis. Mild to moderate left and minimal right neural foraminal narrowing, similar to prior. L4-L5: Diffuse disc bulge with ligamentum flavum thickening and facet arthropathy. No significant canal stenosis. Mild left and minimal right neural foraminal narrowing. L5-S1: Minimal disc bulge with annular fissure. Facet arthropathy. No significant canal stenosis. Mild to moderate left and mild right neural foraminal narrowing, similar to prior. IMPRESSION: Degenerative changes throughout the cervical, thoracic, and lumbar spine as described above. * The findings in the lumbar spine are similar to the previous exam from June 2023. * Findings in the cervical spine are most advanced at C5-C6 where there is moderate to severe left neural foraminal narrowing. * No significant canal stenosis or neural foraminal narrowing in the thoracic spine. SENT TO SCANNING This note is entered for the sole purpose of scanning Non-VA documentation into [employer]. /es/ NIMCO SYKES RN-BC REGISTERED NURSE Signed: 12/25/2023 16:14 Receipt Acknowledged By: 12/31/2023 08:38 /es/ VENKATA MARES MD PRIMARY CARE PHYSICIAN 12/26/2023 08:08 /es/ JASMYNE SCHMITZ CERTIFIED NURSE PRACTITIONER BHARGAV WELCH Dec 25, 2023 04:11 PM RADIOLOGY NONVA NO TE: LOCAL TITLE: NON-VA RADIOLOGY STANDARD TITLE: RADIOLOGY NONVA NOTE DATE OF NOTE: DEC 25, 2023@16:11 ENTRY DATE: DEC 25, 2023@16:11:45 AUTHOR: BHARGAV WELCH EXP COSIGNER: URGENCY: STATUS: COMPLETED NON [place] RADIOLOGY This data contains relevant information copied & pasted from a NON [place] source. Efforts are made to ensure congruency between this note & the original. This note not DOES NOT contain the entirety of the original. Please see [employer] to view the original note/document. _ Date: Dec Place/Provider: [facility] Date of Exam: 12-25-2023 Referring Physician: Marely Wilkes [address] [place] [id number] Exam: MR Thoracic Spine (C-) CPT 99662 MR Cervical Spine (C-) CPT 15254, MR Lumbar Spine (C-) CPT 46057, MR Thoracic Spine (C-) CPT 74152 Other chronic pain Other chronic pain Department Protocol TECHNIQUE: MRI of the cervical spine was performed without intravenous contrast utilizing sagittal T1, 3D sagittal T2 CUBE with multiplanar reformats, sagittal STIR, axial gradient echo, and axial T2-weighted sequences. MRI of the thoracic spine was performed without intravenous contrast utilizing sagittal T1, sagittal T2, sagittal STIR, axial T1, and axial T2-weighted sequences. MRI of the lumbar spine was performed without intravenous contrast utilizing 3D sagittal T2 CUBE with axial reformats, sagittal T1, and sagittal STIR sequences. COMPARISON: Lumbar spine MRI 06/17/2023. FINDINGS: CERVICAL SPINE: ALIGNMENT, VERTEBRAE, MARROW, AND DISCS: Alignment is normal. Vertebral body heights are preserved. There are multilevel endplate osteophytes. There are minimal Modic type II degenerative endplate signal changes at C5-C6. Intervertebral discs are maintained. POSTERIOR FOSSA AND CORD: Visualized posterior fossa is normal. The cervical cord is normal in signal and caliber. PARASPINAL TISSUES: Soft tissues of the neck are unremarkable. Major cervical flow voids are present. DETAILED FINDINGS BY LEVEL: C2-C3: Facet arthropathy. No significant canal stenosis or neural foraminal narrowing. C3-C4: Minimal central disc protrusion. Facet arthropathy. No significant canal stenosis or neural foraminal narrowing. C4-C5: Minimal disc osteophyte complex with facet and uncovertebral joint spurring, right greater than left. Moderate right neural foraminal narrowing. No significant canal stenosis or left neural foraminal narrowing. C5-C6: Broad disc osteophyte complex with facet and uncovertebral joint spurring. No significant canal stenosis. Moderate to severe left and moderate right neural foraminal narrowing. C6-C7: Broad disc osteophyte complex with right-sided uncovertebral joint spurring. Mild right neural foraminal narrowing. No significant canal stenosis or left neural foraminal narrowing. C7-T1: No significant canal stenosis or neural foraminal narrowing. THORACIC SPINE: ALIGNMENT, VERTEBRAE, MARROW, AND DISCS: Alignment is normal. Vertebral body heights are preserved. Minimal Modic type I signal changes are demonstrated at the anterior aspect of the T4-T5 endplates and there are also minimal Modic type I signal changes at T5-T6 and T6-T7. Multilevel disc desiccation. Intervertebral disc heights are maintained. Multilevel facet arthropathy. CORD: The thoracic cord is normal in signal and contour. PARASPINAL TISSUES: Visualized paraspinal soft tissues are unremarkable. FINDINGS BY LEVEL: No significant central stenosis or neural foraminal narrowing is seen at any level in the thoracic spine. LUMBAR SPINE: ALIGNMENT, VERTEBRAE, MARROW, AND DISCS: Minimal retrolisthesis of L5 on S1, unchanged. Otherwise, alignment is maintained. Vertebral body heights are preserved. There is no significant marrow signal abnormality. Disc desiccation at L5-S1. Intervertebral disc heights are maintained. Posterior annular fissure at L5-S1. CONUS: The conus is normal in signal and contour, with normal level of termination at L2. PARASPINAL TISSUES: The paraspinal soft tissues are unremarkable. DETAILED FINDINGS BY LEVEL: L1-L2: Minimal disc bulge. No significant canal stenosis or neural foraminal narrowing. L2-L3: Minimal disc bulge. Facet arthropathy. No significant canal stenosis. Minimal bilateral neural foraminal narrowing. L3-L4: Minimal disc bulge, ligamentum flavum thickening, and facet arthropathy. No significant canal stenosis. Mild to moderate left and minimal right neural foraminal narrowing, similar to prior. L4-L5: Diffuse disc bulge with ligamentum flavum thickening and facet arthropathy. No significant canal stenosis. Mild left and minimal right neural foraminal narrowing. L5-S1: Minimal disc bulge with annular fissure. Facet arthropathy. No significant canal stenosis. Mild to moderate left and mild right neural foraminal narrowing, similar to prior. IMPRESSION: Degenerative changes throughout the cervical, thoracic, and lumbar spine as described above. * The findings in the lumbar spine are similar to the previous exam from June 2023. * Findings in the cervical spine are most advanced at C5-C6 where there is moderate to severe left neural foraminal narrowing. * No significant canal stenosis or neural foraminal narrowing in the thoracic spine. SENT TO SCANNING This note is entered for the sole purpose of scanning Non-VA documentation into [employer]. /es/ NUHA SYKESN RN-BC REGISTERED NURSE Signed: 12/25/2023 16:12 Receipt Acknowledged By: 12/26/2023 08:07 /es/ JASMYNE SCHMITZ CERTIFIED NURSE PRACTITIONER 12/31/2023 08:58 /es/ VENKATA MARES MD PRIMARY CARE PHYSICIAN BHARGAV WELCH Dec 25, 2023 04:08 PM RADIOLOGY NONVA NO TE: LOCAL TITLE: NON-VA RADIOLOGY STANDARD TITLE: RADIOLOGY NONVA NOTE DATE OF NOTE: DEC 25, 2023@16:08 ENTRY DATE: DEC 25, 2023@16:08:49 AUTHOR: BHARGAV WELCH EXP COSIGNER: URGENCY: STATUS: COMPLETED NON VA RADIOLOGY This data contains relevant information copied & pasted from a NON [place] source. Efforts are made to ensure congruency between this note & the original. This note not DOES NOT contain the entirety of the original. Please see [facility] to view the original note/document. _ Date: Dec Place/Provider: [facility] Date of Exam: 12-25-2023 Referring Physician: Marely Wilkes [address] [place] [id number] Exam: MR Lumbar Spine (C-) CPT 00573 MR Cervical Spine (C-) CPT 65618, MR Lumbar Spine (C-) CPT 42514, MR Thoracic Spine (C-) CPT 50942 Other chronic pain Other chronic pain Department Protocol TECHNIQUE: MRI of the cervical spine was performed without intravenous contrast utilizing sagittal T1, 3D sagittal T2 CUBE with multiplanar reformats, sagittal STIR, axial gradient echo, and axial T2-weighted sequences. MRI of the thoracic spine was performed without intravenous contrast utilizing sagittal T1, sagittal T2, sagittal STIR, axial T1, and axial T2-weighted sequences. MRI of the lumbar spine was performed without intravenous contrast utilizing 3D sagittal T2 CUBE with axial reformats, sagittal T1, and sagittal STIR sequences. COMPARISON: Lumbar spine MRI 06/17/2023. FINDINGS: CERVICAL SPINE: ALIGNMENT, VERTEBRAE, MARROW, AND DISCS: Alignment is normal. Vertebral body heights are preserved. There are multilevel endplate osteophytes. There are minimal Modic type II degenerative endplate signal changes at C5-C6. Intervertebral discs are maintained. POSTERIOR FOSSA AND CORD: Visualized posterior fossa is normal. The cervical cord is normal in signal and caliber. PARASPINAL TISSUES: Soft tissues of the neck are unremarkable. Major cervical flow voids are present. DETAILED FINDINGS BY LEVEL: C2-C3: Facet arthropathy. No significant canal stenosis or neural foraminal narrowing. C3-C4: Minimal central disc protrusion. Facet arthropathy. No significant canal stenosis or neural foraminal narrowing. C4-C5: Minimal disc osteophyte complex with facet and uncovertebral joint spurring, right greater than left. Moderate right neural foraminal narrowing. No significant canal stenosis or left neural foraminal narrowing. C5-C6: Broad disc osteophyte complex with facet and uncovertebral joint spurring. No significant canal stenosis. Moderate to severe left and moderate right neural foraminal narrowing. C6-C7: Broad disc osteophyte complex with right-sided uncovertebral joint spurring. Mild right neural foraminal narrowing. No significant canal stenosis or left neural foraminal narrowing. C7-T1: No significant canal stenosis or neural foraminal narrowing. THORACIC SPINE: ALIGNMENT, VERTEBRAE, MARROW, AND DISCS: Alignment is normal. Vertebral body heights are preserved. Minimal Modic type I signal changes are demonstrated at the anterior aspect of the T4-T5 endplates and there are also minimal Modic type I signal changes at T5-T6 and T6-T7. Multilevel disc desiccation. Intervertebral disc heights are maintained. Multilevel facet arthropathy. CORD: The thoracic cord is normal in signal and contour. PARASPINAL TISSUES: Visualized paraspinal soft tissues are unremarkable. FINDINGS BY LEVEL: No significant central stenosis or neural foraminal narrowing is seen at any level in the thoracic spine. LUMBAR SPINE: ALIGNMENT, VERTEBRAE, MARROW, AND DISCS: Minimal retrolisthesis of L5 on S1, unchanged. Otherwise, alignment is maintained. Vertebral body heights are preserved. There is no significant marrow signal abnormality. Disc desiccation at L5-S1. Intervertebral disc heights are maintained. Posterior annular fissure at L5-S1. CONUS: The conus is normal in signal and contour, with normal level of termination at L2. PARASPINAL TISSUES: The paraspinal soft tissues are unremarkable. DETAILED FINDINGS BY LEVEL: L1-L2: Minimal disc bulge. No significant canal stenosis or neural foraminal narrowing. L2-L3: Minimal disc bulge. Facet arthropathy. No significant canal stenosis. Minimal bilateral neural foraminal narrowing. L3-L4: Minimal disc bulge, ligamentum flavum thickening, and facet arthropathy. No significant canal stenosis. Mild to moderate left and minimal right neural foraminal narrowing, similar to prior. L4-L5: Diffuse disc bulge with ligamentum flavum thickening and facet arthropathy. No significant canal stenosis. Mild left and minimal right neural foraminal narrowing. L5-S1: Minimal disc bulge with annular fissure. Facet arthropathy. No significant canal stenosis. Mild to moderate left and mild right neural foraminal narrowing, similar to prior. IMPRESSION: Degenerative changes throughout the cervical, thoracic, and lumbar spine as described above. * The findings in the lumbar spine are similar to the previous exam from June 2023. * Findings in the cervical spine are most advanced at C5-C6 where there is moderate to severe left neural foraminal narrowing. * No significant canal stenosis or neural foraminal narrowing in the thoracic spine. SENT TO SCANNING This note is entered for the sole purpose of scanning Non-VA documentation into [employer]. /lora/ NIMCO SYKES RN-BC REGISTERED NURSE Signed: 12/25/2023 16:10 Receipt Acknowledged By: 12/26/2023 08:09 /es/ JASMYNE SCHMITZ CERTIFIED NURSE PRACTITIONER 12/31/2023 08:38 /lora/ VENKATA MARES MD PRIMARY CARE PHYSICIAN BHARGAV WELCH
--- OUTSIDE RECORDS SUMMARY | 2024-09-30 08:38 | XMS_ITS | Encounter Summary ---
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 Operator Name Role Phone CHANI RHODES Primary Care [...] to Policy Zayas [employer]ANCE [facility] February 03, 2022 [id number] EMERITA RIVERA PATIENT [facility] MEDICAID MEDICAID MEDIC AID Oct 06, 2013 MEDICAI D [id number] EMERITA RIVERA PATIENT MEDICARE (WNR) MEDICARE (M) PART A Mar 06, 2015 PART A [id number] EMERITA RIVERA PATIENT MEDICARE (WNR) MEDICARE (M) PART B Mar 06, 2015 PART B [id number] EMERITA RIVERA PATIENT MEDICARE (WNR) MEDICARE (M) PART B Mar 06, 2015 PART B [id number] EMERITA RIVERA PATIENT MEDICARE (WNR) MEDICARE (M) PART A Mar 06, 2015 PART A [id number] EMERITA RIVERA PATIENT MEDICARE (WNR) MEDICARE (M) PART B Mar 06, 2015 PART B [id number] EMERITA RIVERA PATIENT MEDICARE (WNR) MEDICARE (M) PART B Mar 06, 2015 PART B [id number] [phone] EMERITA RIVERA PATIENT MEDICARE (WNR) MEDICARE (M) PART A Mar 06, 2015 PART A [id number] EMERITA RIVERA PATIENT Selected Encounter This section includes the information on record at [place] for the Encounter. Date/Time Encounter Type Encounter Description Reason Provider Source Mar 08, 2024 09:00 AM OFFICE O/P EST MOD 30 MIN PRIMARY CARE/MEDICINE ICD-10-CM R10.9 Unspecified abdominal pain RAISA MARES Behzad Encounter Template Text not used by [place] Assessments - Encounter Diagnoses This section includes the primary and secondary diagnoses documented for the Encounter. Date/Time Primary/Secondary Diagnosis Diagnosis Name Provider Source Mar 08, 2024 09:45 AM PRIMARY Unspecified abdominal pain RAISA MARES [place] Plan of Treatment: Future Appointments (+ 6 [...] Date/Time Appointment Type Appointme nt Facility Name Mar 22, 2024 02:15 PM AMBULATORY - [place]ICINE [place] [facility] [place] [facility] Apr 06, 2024 03:00 PM AMBULATORY - MEDICINE [place] [facility] [place] [facility] Apr 14, 2024 09:30 AM AMBULATORY - MEDICINE [place] [facility] [place] [facility] Apr 19, 2024 03:00 PM AMBULATORY - MEDICINE [facility] Apr 20, 2024 09:00 AM AMBULATORY - MEDICINE [place] [facility] [place] [facility] Apr 28, 2024 03:00 PM AMBULATORY - MEDICINE [place] [facility] [place] [facility] May 21, 2024 09:45 AM AMBULATORY - MEDICINE [place] [facility] [place] [facility] Jun 10, 2024 09:30 AM AMBULATORY - MEDICINE [place] [facility] [place] [facility] Jun 23, 2024 08:00 AM AMBULATORY - REH[place] MEDICIN [place] Jun 28, 2024 07:30 AM AMBULATORY - REHAB MEDICIN E [place] Jul 01, 2024 02:45 PM AMBULATORY - MEDICINE [place] [facility] [place] [facility] Jul 06, 2024 08:00 AM [facility] Jul 13, 2024 10:00 AM AMBULATORY - REHAB MEDICIN [place] Jul 28, 2024 10:00 AM AMBULATORY - REHAB MEDICIN E [place] Aug 05, 2024 09:30 AM AMBULATORY - MEDICINE [place] [facility] [place] [facility] Aug 19, 2024 09:00 AM AMBULATORY - MEDICINE [facility] Aug 24, 2024 11:00 AM AM[facility] [place] [facility] Aug 24, 2024 03:00 PM AMBULATORY - REHAB MEDICIN [facility] [place] Aug 27, 2024 10:00 AM [facility] [place] [facility] Lab Results: +/- 30 days of [...] Result - Unit Interpretation Reference Range Comment Mar 08, 2024 09:42 AM [place] LIPID PANEL FASTING Specimen Type: SERUM No comment entered. Ordering Provider: RAISA MARES Report Released Date/Time: Nov 28, 2023 09:56 AM Reporting Lab: [facility] [address] [address] Performing Lab: [facility] [address] [address] CHOLESTEROL 126 mg/dL TRIGLYCERIDE 197 mg/dL H 0-150 LDL calculated 57 mg/dL 0-129 CHOL/HDL 4.2 HDL CHOLESTEROL 30 mg/dL L 40-60 Mar 08, 2024 09:42 AM [place] BASIC METABOLIC PANEL (fasting) Specime n Type: SERUM No comment entered. Ordering Provider: RAISA MARES Report Released Date/Time: Nov 28, 2023 09:56 AM Reporting Lab: [facility] [address] [address] Performing Lab: [address] [address] UREA NITROGEN 14 mg/dL 7-25 GLUCOSE 230 mg/dL H 65-100 SODIUM 139 mmol/L 135-145 POTASSIUM 4.2 mmol/L 3.5-5.0 CHLORIDE 108 mmol/L 100-110 CO2 22 meq/L 20-30 CREATININE, Serum 1.22 mg/dL 0.50-1.40 eGFR(CKD-EPI 2020) 68 mL/min >60 Mar 08, 2024 09:42 AM [place] HEMOGLOBIN A1C PANEL Specimen Type: BLOOD Comment: Values obtained from A1C measurements can vary. For atypical A1C assays, a reported value of 7.0 could actually be between 6.72 and 7.28 if measured by a reference method. A reported value of 9.0 could actually be between 8.73 and 9.27. Ref: http://www.ngsp. org/CAPdata.asp Ordering Provider: RAISA MARES Report Released Date/Time: Nov 28, 2023 09:56 AM Reporting Lab: [facility] [address] [address] Performing Lab: [address] [address] HEMOGLOBIN A1C 7.4 H 4.0-5.6 Mar 08, 2024 09:42 AM [place] LIVER FUNCTION Specimen Type: SERUM No comment entered. Ordering Provider: RAISA MARES Report Released Date/Time: Nov 28, 2023 09:56 AM Reporting Lab: [facility] [address] [address] Performing Lab: [address] [address] PROTEIN,TOTAL 7.7 g/dL 6.0-8.3 ALBUMIN 4.3 g/dL 3.5-5.0 ALKALINE PHOSPHATASE 90 U/L 40-150 AST 26 U/L 5-34 ALT 46 U/L BILIRUBIN, TOTAL 1.2 mg/dL 0.2-1.2 BILIRUBIN, DIRECT 0.4 mg/dL 0-0.5 Mar 08, 2024 09:42 AM [place] CBC Specimen Type: BLOOD No comment entered. Ordering Provider: RAISA MARES Report Released Date/Time: Nov 28, 2023 09:56 AM Reporting Lab: [facility] [address] [address] Performing Lab: [facility] [address] [address] WBC 6.55 10*3/uL 4.50-11.00 RBC 5.57 10*6/uL 4.23-5.66 HGB 17.0 g/dL 12.8-17 HCT 50.1 39.2-50.4 MCV 89.9 fL 82-99 MCHC 33.9 g/dL 30.8-35.1 PLT 123 10*3/uL L 140-360 RDW-CV 12.9 12.0-16.0 MCH 30.5 pg 26.2-32.6 Mar 08, 2024 09:42 AM [place] VITAMIN D 25-OH (Therapy monitor) Speci men [...] For additional information, please refer to http://education .Ch[employer]/faq/RFR946 (This link is being provided for informational/ educational purposes only.) This test was developed and its analytical performance characteristics have been determined by [facility] [place], [place]. It has not been cleared or approved by the U.S. Food and Drug Administration. This assay has been validated pursuant to the CLIA regulations and is used for clinical purposes. This test was developed and its analytical performance characteristics have been determined by [facility] [place]. It has not been cleared or approved by the U.S. Food and Drug Administration. This assay has been validated pursuant to the CLIA regulations and is used for clinical purposes. Test Performed by [facility], [facility], [address] [place], [place] Mohit Cazares M.D., Ph.D., Director of Laboratories , CLIA [id number] TEST PERFORMED AT: , Ordering Provider: RAISA MARES Report Released Date/Time: Mar 08, 2024 09:16 AM Reporting Lab: [address] [address] Performing Lab: [facility] [address] [address] VITAMIN D, 25-OH, TOTAL 19 ng/mL L 30-100 VITAMIN D, 25-OH, D3 19 ng/mL VITAMIN D, 25-OH, D2 <4 ng/mL Mar 08, 2024 09:42 AM [place] AMYLASE Specimen Type: SERUM No comment entered. Ordering Provider: RAISA MARES Report Released Date/Time: Mar 08, 2024 09:34 AM Reporting Lab: [address] [address] Performing Lab: [address] [address] AMYLASE 67 U/L 25-125 Mar 08, 2024 09:42 AM [place] LIPASE Specimen Type: SERUM No comment entered. Ordering Provider: RAISA MARES Report Released Date/Time: Mar 08, 2024 09:34 AM Reporting Lab: [address] [address] Performing Lab: [address] [address] LIPASE 53 U/L 8-82 Vital Signs: All taken on the encounter date This section contains inpatient and outpatient Vital Signs collected on the date of the Encounter. Date/Time Temperature Pulse Blood Pressure Respiratory Rate SP02 Pain Height Weight Body Mass Index Source Mar 08, 2024 09:14 AM 92 146/97 96 272 32 [facility] Social History: Smoking Status (Most current) [...] Current Smoking Status Comment Facil ity Mar 08, 2024 09:00 AM [place]-TOBACCO FORMER USER [place] Tobacco Use History This section includes a history of the smoking, or tobacco-related health factors, that were collected on or before the date of the Encounter. The data comes from the [place] facility where the Encounter took place. Date/Time Smoking Status/Tobacco Use Comment F acility Mar 08, 2024 09:00 AM VA-TOBACCO QUIT 15 YRS OR MORE [place] Mar 27, 2022 09:30 AM VA-TOBACCO FORMER USER [place] Mar 27, 2022 09:30 AM VA-TOBACCO QUIT 15 YRS OR MORE [place] Dec 22, 2018 10:29 AM VA-TOBACCO FORMER USER [place] Dec 22, 2018 10:29 AM VA-TOBACCO QUIT 15 YRS OR MORE [place] Mar 19, 2018 11:33 AM VA-TOBACCO FORMER USER [place] Mar 19, 2018 11:33 AM VA-TOBACCO QUIT 15 YRS OR MORE [place] May 13, 2017 01:22 PM QUIT TOBACCO USE > 7 YEARS AGO quit 24 yrs ago [place] Nov 15, 2015 09:48 AM QUIT TOBACCO USE > 7 YEARS AGO States he last smoked 21 years ago [place] Dec 07, 2009 02:51 PM QUIT TOBACCO USE > 7 YEARS AGO [place] Advance Directives: All historical and current Section Date Range: From patient's date of to the date document was created. This section includes ALL of a patient's completed or amended [place] Advance and Rescinded Directives. The entries below indicate that a directive exists for the patient, but an actual copy is not included with this document. The data comes from all [facility]. Date Advance Directives Provider Source May 23, [...] treatment facilities. Date/Time Radiology Report Provider Source Mar 08, 2024 11:29 AM ABDOMEN (2 VIEWS): EMERITA RIVERA [id number] -1965 M Exm Date: MAR 08, 2024@11:29 Req Phys: RAISA MARES Loc: CWM/SO/PACT EIGHT WH (Req'g Lo Img Loc: [facility]BUILDING [address]: [address] [facility] , (Case 37 COMPLETE) ABDOMEN (2 VIEWS) (RAD Detailed) CPT:64464 Reason for Study: abdominal discomfort Clinical History: nausea, vomiting Report Status: Verified Date Reported: MAR 08, 2024 Date Verified: MAR 08, 2024 Synchronous Motor Assembler E-Sig:/ES/TERESA BLOUNT JR Report: Study: KUB supine and upright views of the abdomen. Comparison: Abdominal ultrasound from the same date with CT scan of the abdomen from December 12, 2022. Findings: The lung bases are clear. There is no evidence of intra-abdominal free air. Right upper quadrant cholecystectomy clips are present. There is no organomegaly. There are no suspicious abdominal or pelvic calcifications. The bowel gas pattern is within normal limits. There is no evidence of bowel obstruction or dilatation. There is normal amount of formed stool within the colon with decompression of the rectum. No acute bony pathology is identified. Penile prosthesis in the midline of the peroneal soft tissues with right pelvic reservoir. Impression: No acute abnormality identified. Primary Diagnostic Code: No immediate attention required Primary Interpreting Staff: TERESA BLOUNT JR, Radiologist (Synchronous Motor Assembler) /TERESA AGUILAR JR [facility] Mar 08, 2024 11:07 AM ABDOMINAL ULTRASOUND: EMERITA RIVERA [id number] -1965 M Exm Date: MAR 08, 2024@11:07 Req Phys: KATIE MARESDAKSHA Hinton Pat Loc: CWM/SO/PACT EIGHT WH (Req'g Lo Img Loc: ULTRASOUND Service: Unknown [facility] , (Case 32 COMPLETE) ULTRASOUND ABDOMEN (US Detailed) CPT:40194 Reason for Study: abdominal discomfort Clinical History: nausea, vomiting Report Status: Verified Date Reported: MAR 08, 2024 Date Verified: MAR 08, 2024 Synchronous Motor Assembler E-Sig:/ES/TERESA BLOUNT JR Report: Study: Abdomen ultrasound. Comparison: None. Findings: The liver is normal in size and diffusely increased in echogenicity consistent with hepatic steatosis/fibrosis. No intrahepatic bile duct dilatation is seen. No hepatic mass is seen. The portal vein is patent with normal hepatopedal flow. The common hepatic duct measures 0.54 cm, which is normal. The patient is status post cholecystectomy. There is a negative sonographic Wallace sign present. The pancreas is not well seen secondary to prominent shadowing bowel gas. The spleen is normal and measures 10.0 cm in length. The right kidney measures 12.0 cm in long length. The left kidney measures 11.0 cm in long length. There is a single cortical cyst in the right kidney measuring 2.3 cm in greatest dimension. Both kidneys are otherwise unremarkable with normal renal cortical thickness and echogenicity with no hydronephrosis or shadowing stone identified. No ascites is identified. Impression: Hepatic steatotic/fibrotic changes with no acute abnormality identified, as described above. Primary Diagnostic Code: No immediate attention required Primary Interpreting Staff: TERESA BLOUNT JR, Radiologist (Synchronous Motor Assembler) /TERESA AGUILAR JR [facility] Encounter Notes: All associated encounter notes This section contains the clinical notes associated to the Encounter. Date/Time Encounter Note(s) Provider Source Mar 08, 2024 09:46 AM ADMINISTRATIVE NOT E: LOCAL TITLE: ADMINISTRATIVE NOTE STANDARD TITLE: ADMINISTRATIVE NOTE DATE OF NOTE: MAR 08, 2024@09:46 ENTRY DATE: MAR 08, 2024@09:46:14 AUTHOR: RAISA MARES EXP COSIGNER: URGENCY: STATUS: [place] [address] [phone] * Date:MAR 08, 2024 Re: EMERITA RIVERA, To whom it may concern, Please be informed that Mr. Rivera was seen in the clinic at the [facility] in [place] on March 08, 2024.he may return to work on Saturday, March 102023. Thank you for your consideration. If you have any questions please do not hesitate to contact me. Sincerely, Dr. Raisa Mares /lora/ RAISA MARES MD PRIMARY CARE PHYSICIAN Signed: 03/08/2024 09:47 RAISA MARES [place] Mar 08, 2024 09:15 AM PREVENTIVE MEDICIN E NURSING NOTE: LOCAL TITLE: CLINICAL REMINDERS/NURSING STANDARD TITLE: PREVENTIVE MEDICINE NURSING NOTE DATE OF NOTE: MAR 08, 2024@09:15 ENTRY DATE: MAR 08, 2024@09:15:23 AUTHOR: MANDO COOLEY COSIGNER: URGENCY: STATUS: COMPLETED BMI>30/>24.99 High Risk: Patient declines to discuss weight management. Patient declined weight discussion. Discussed revisiting at a future visit. Tobacco Use Screening: The patient is a former tobacco user. The patient quit fifteen or more years ago. Alcohol Use Screen (AUDIT-C): Alcohol Screen: SCREEN FOR ALCOHOL (AUDIT-C) An alcohol screening test (AUDIT-C) was negative (score=0). 1. How often did you have a drink containing alcohol in the past year? Consider a drink to be a 12 ounce can or bottle of regular beer, 8 ounces of malt liquor, a 5 ounce glass of table wine, or a 1.5 ounce shot of liquor (like scotch, gin, or vodka). Never 2. How many drinks containing alcohol did you have on a typical day when you were drinking in the past year? Response not required due to responses to other questions. 3. How often did you have six or more drinks on one occasion in the past year? Response not required due to responses to other questions. COVID-19 Immunization: Refused Moderna Monovalent COVID-19 vaccine Immunization: COVID-19 (MODERNA), MRNA, LNP-S, PF, 50 MCG/0.5 ML (AGES 12+ YEARS) Refusal Reason: PATIENT DECISION Patient refuses all immunization(s) in the COVID-19 group Date Documented: 03/08/24 09:16 Eye Care At-Risk Screen : Patient identified to be at risk for the following eye condition(s): DIABETIC RETINOPATHY: Diabetes Diagnosis Information: Encounter Diagnosis: 11/28/2023@09:00 E11.9 (ICD-10-CM) Type 2 Diabetes Mellitus without Complications rank: SECONDARY Prov. Narr. - Diabetes Mellitus Type 2 ([facility] [id number]) Action: Patient has a future eye care appointment scheduled within the next 90 days. Date of Appointment: UPCOMING APPT AT [facility] // MANDO COOLEY LPN Licensed Practical Nurse Signed: 03/08/2024 09:16 MANDO COOLEY Mar 08, 2024 09:14 AM PHYSICIAN NOTE: LOCAL TITLE: MD NOTE STANDARD TITLE: PHYSICIAN NOTE DATE OF NOTE: MAR 08, 2024@09:14 ENTRY DATE: MAR 08, 2024@09:14:15 AUTHOR: RAISA MARES COSIGNER: URGENCY: STATUS: COMPLETED NOTE Has ADDENDA HISTORY OF PRESENT ILLNESS: EMERITA T LILY, is a 58 yo MALE , who presents at the [facility] for follow up visit for complaint of abdominal discomfort, nausea vomiting and loose stools since last when he received the last Ozempic injection. The [place] states had mild similar symptoms after previous Ozempic injection but since last the symptoms seems to be more intense . labs are pending Active problems - Computerized Problem List is the source for the followin-abdominal pain nausea vomiting for the last few days The following VA and Non-VA meds were reconciled with patient: Active Outpatient Medications (including Supplies): Issue Date Status Last Fill Active Outpatient Medications Refills Expiration 1) ACETAMINOPHEN 500MG TAB Qty: 200 for 30 ACTIVE Issu:11-28-23 days Sig: TAKE TWO TABLETS BY MOUTH Refills: 2 Last:11-28-23 THREE TIMES DAILY NEEDED FOR PAIN Expr:11-28-24 2) ATORVASTATIN CALCIUM 80MG TAB Qty: 90 ACTIVE Issu:11-28-23 for 90 days Sig: TAKE ONE TABLET BY Refills: 2 Last:11-28-23 MOUTH AT BEDTIME FOR HIGH CHOLESTEROL Expr:11-28-24 3) CHOLECALCIF 50MCG (D3-2,000UNIT) TAB ACTIVE Issu:12-15-23 Qty: 100 for 90 days Sig: TAKE ONE Refills: 2 Last:12-15-23 TABLET BY MOUTH ONCE DAILY FOR VITAMIN Expr:12-15-24 SUPPLEMENTATION 4) DICLOFENAC NA 1% TOP GEL Qty: 100 for ACTIVE Issu:05-21-23 20 days Sig: APPLY 4 GRAMS TOPICALLY Refills: 2 Last:05-21-23 TWICE DAILY NEEDED FOR Expr:05-21-24 OSTEOARTHRITIS - USE DOSING CARD PROVIDED IN BOX 5) EMPAGLIFLOZIN 25MG TAB Qty: 90 for 90 ACTIVE Issu:10-17-23 days Sig: TAKE ONE TABLET BY MOUTH Refills: 1 Last:10-17-23 ONCE DAILY Expr:10-17-24 6) GABAPENTIN 100MG CAP Qty: 270 for 90 ACTIVE Issu:12-12-23 days Sig: TAKE ONE CAPSULE BY MOUTH Refills: 0 Last:12-12-23 EVERY MORNING AND TAKE TWO CAPSULES AT Expr:03-11-24 BEDTIME FOR NERVE PAIN 7) GLUCOSE SENSOR DEXCOM G7 Qty: 6 for 60 ACTIVE Issu:12-11-23 days Sig: USE 1 SENSOR DIRECTED Refills: 4 Last:01-29-24 EVERY 10 DAYS Expr:12-11-24 8) HYDROCODONE 5MG/ACETAMINOPHEN 325MG TAB ACTIVE Issu:02-10-24 Qty: 24 for 28 days Sig: TAKE 1 Refills: 0 Last:02-10-24 TABLET BY MOUTH TWICE DAILY NEEDED Expr:03-11-24 FOR PAIN MAY USE UP TO 3 DAYS PER WEEK (NEXT FILL 03/09/24) 9) INSULIN,ASPART(EQV-NOVLG)100UN/ ML FLXPEN ACTIVE Issu:02-26-24 Qty: 10 for 30 days Sig: INJECT 25 Refills: 8 Last:02-26-24 UNITS SUBCUTANEOUSLY THREE TIMES A DAY Expr:02-26-25 INJECT 15 MINUTES BEFORE MEALS IF MEAL SKIPPED SKIP THE DOSE 10) INSULIN,GLARGINE-YFGN 100UNIT/ML PEN 3ML ACTIVE Issu:02-26-24 Qty: 10 for 30 days Sig: INJECT 46 Refills: 5 Last:02-26-24 UNITS SUBCUTANEOUSLY TWICE DAILY Expr:02-26-25 11) LIDOCAINE 5% PATCH Qty: 30 for 30 days ACTIVE Issu:11-28-23 Sig: APPLY 1 PATCH TOPICALLY ONCE Refills: 3 Last:11-28-23 DAILY NEEDED (LEAVE PATCH ON FOR 12 Expr:11-28-24 HOURS, THEN REMOVE PATCH) 12) LISINOPRIL 5MG TAB Qty: 90 for 90 days ACTIVE Issu:05-21-23 Sig: TAKE ONE TABLET BY MOUTH ONCE Refills: 1 Last:01-29-24 DAILY TO CONTROL BLOOD PRESSURE Expr:05-21-24 13) METFORMIN HCL 750MG 24HR SA TAB Qty: 90 ACTIVE Issu:02-26-24 for 90 days Sig: TAKE ONE TABLET BY Refills: 1 Last:02-26-24 MOUTH ONCE DAILY Expr:02-26-25 14) SEMAGLUTIDE 1MG/0.75ML INJ PEN 3ML Qty: ACTIVE Issu:11-27-23 1 for 28 days Sig: INJECT 1MG Refills: 3 Last:02-26-24 SUBCUTANEOUSLY ONCE A WEEK FOR TYPE 2 Expr:11-27-24 DIABETES MELLITUS ALLERGIES: ========= Patient has answered NK[facility] LAB HISTORY: Pending PMH: HTN, HLP, DM type 2, Diverticulosis, [...] years ago HISTORY: PERIOD OF SERVICE - [employer] FROM Jun TO Apr COMBAT SERVICE INDICATED: No REVIEW OF SYSTEMS: No fever, chills, fatigue No chest pain shortness of breath or palpitations Diffuse abdominal discomfort, nausea, vomiting on and off, loose stools, positive for burping No dysuria Chronic left knee pain No headaches or dizziness PHYSICAL EXAMINATION: WD/obese seems to be in mild distress at the moment of examination due to abdominal discomfort, loose stools and nausea S1-S2 positive, RRR YUE, CTA bilateral Abdomen soft, bowel sounds positive mild tenderness to palpation diffuse No edema lower extremities AAO x3; ambulates without help ASSESSMENT/PLAN: 1-abdominal discomfort, intermittent nausea, vomiting, a lot of burping and loose stools since last when he received the last Ozempic injection He denies any recent travel or eating outside He denies any sick contacts or similar symptoms and other members of his family He states noticed mild similar symptoms after previous Ozempic injection but this time they were more intense I discontinue Ozempic Blood work pending; I added amylase and lipase Abdominal ultrasound and abdominal x-ray ordered I discussed with radiology department and patient has an appointment today at 11:30 AM in [place]. She would like a note for his work for today and tomorrow and return on Friday FOLLOW UP: ========= RTC -April for left knee pain and further management Today's documentation was made using voice recognition software. This note may contain spelling/grammatical errors secondary to this software. Every effort is made to correct errors, but if mistakes are found they need to be taken in context. UPCOMING APPOINTMENTS: 03/22/2024 14:15 CWM/NO/PAIN MD CLINIC 04/20/2024 09:00 NHM/OPTOMETRY/[facility]/ No barriers; Patient understands [...] of active outpatient prescriptions dispensed from this [place] (local) and dispensed from another [place] or DoD facility (remote) as well as [...] [facility] [place] [facility] No Known Allergies [facility] NO KNOWN ALLERGIES Med Recon NoGlossary (Tool #1) INCLUDED IN THIS LIST: Alphabetical list of active outpatient prescriptions dispensed from this [place] (local) and dispensed from another [place] or Do[place] facility (remote) as well as inpatient orders (local pending and active), local clinic medications, locally documented non-VA medications, and local prescriptions that have or been discontinued in the past 90 days. Non-VA Meds Last Documented On: Nov 20, 2017 NOTE The display of VA prescriptions dispensed from another [place] or [facility] facility (remote) is limited to active outpatient prescription entries matched to National Drug File at the originating site and may not include some items such as investigational drugs, compounds, etc. NOT INCLUDED IN THIS LIST: Medications self-entered by the patient into personal health records (i.e. [employer]) are NOT included in this list. Non-VA medications documented outside this [place], remote inpatient orders (regardless of status) and remote clinic medications are NOT included in this list. The patient and provider must always discuss medications the patient is taking, regardless of where the medication was dispensed or obtained. OUTPT ACETAMINOPHEN 500MG TAB (Status = Active) TAKE TWO TABLETS BY MOUTH THREE TIMES DAILY NEEDED FOR PAIN Rx# [id number] Last Released: 11/28/23 Qty/Days Supply: 200/30 Rx Expiration Date: 11/28/24 Refills Remainin OUTPT ATORVASTATIN CALCIUM 80MG TAB (Status = Active) TAKE ONE TABLET BY MOUTH AT BEDTIME FOR HIGH CHOLESTEROL Rx# [id number] Last Released: 11/28/23 Qty/Days Supply: 90 Rx Expiration Date: 11/28/24 Refills Remainin Indication: FOR HIGH CHOLESTEROL OUTPT CHOLECALCIF 50MCG (D3-2,000UNIT) TAB (Status = Active) TAKE ONE TABLET BY MOUTH ONCE DAILY FOR VITAMIN SUPPLEMENTATION Rx# [id number] Last Released: 12/18/23 Qty/Days Supply: 100 Rx Expiration Date: 12/15/24 Refills Remainin Indication: FOR VITAMIN D DEFICIENCY OUTPT CYCLOBENZAPRINE HCL 10MG TAB (Status = ) TAKE ONE TABLET BY MOUTH AT BEDTIME NEEDED FOR MUSCLE SPASM Rx# [id number] Last Released: 11/28/23 Qty/Days Supply: 04/08 Rx Expiration Date: 12/28/23 Refills Remainin Indication: FOR MUSCLE SPASM OUTPT DICLOFENAC NA 1% TOP GEL (Status = Active) APPLY 4 GRAMS TOPICALLY TWICE DAILY NEEDED FOR OSTEOARTHRITIS - USE DOSING CARD PROVIDED IN BOX Rx# [id number] Last Released: 05/21/23 Qty/Days Supply: Rx Expiration Date: 05/21/24 Refills Remainin Indication: FOR JOINT PAIN OUTPT EMPAGLIFLOZIN 25MG TAB (Status = Active) TAKE ONE TABLET BY MOUTH ONCE DAILY Rx# [id number] Last Released: 10/17/23 Qty/Days Supply: 90 Rx Expiration Date: 10/17/24 Refills Remainin Indication: FOR TYPE 2 DIABETES MELLITUS OUTPT GABAPENTIN 100MG CAP (Status = Active) TAKE ONE CAPSULE BY MOUTH EVERY MORNING AND TAKE TWO CAPSULES AT BEDTIME FOR NERVE PAIN Rx# [id number] Last Released: 12/12/23 Qty/Days Supply: Rx Expiration Date: 03/11/24 Refills Remainin Indication: FOR NERVE PAIN OUTPT HYDROCODONE 5MG/ACETAMINOPHEN 325MG TAB (Status = Active) TAKE 1 TABLET BY MOUTH TWICE DAILY NEEDED FOR PAIN MAY USE UP TO 3 DAYS PER WEEK (NEXT FILL 03/09/24) Rx# [id number] Last Released: 02/10/24 Qty/Days Supply: Rx Expiration Date: 03/11/24 Refills Remainin Indication: FOR PAIN OUTPT INSULIN,ASPART(EQV-NOVLG)100UN/ ML FLXPEN (Status = ) INJECT 25 UNITS SUBCUTANEOUSLY BEFORE BREAKFAST AND INJECT 25 UNITS BEFORE LUNCH AND INJECT 25 UNITS BEFORE SUPPER (SKIP DOSE IF MEAL IS SKIPPED) Rx# [id number] Last Released: 12/05/23 Qty/Days Supply: Rx Expiration Date: 01/11/24 Refills Remainin OUTPT INSULIN,ASPART(EQV-NOVLG)100UN/ ML FLXPEN (Status = Active) INJECT 25 UNITS SUBCUTANEOUSLY THREE TIMES A DAY INJECT 15 MINUTES BEFORE MEALS IF MEAL SKIPPED SKIP THE DOSE Rx# [id number] Last Released: 02/26/24 Qty/Days Supply: 08/04 Rx Expiration Date: 02/26/25 Refills Remainin Indication: FOR DIABETES OUTPT INSULIN,GLARGINE-YFGN 100UNIT/ML PEN 3ML (Status = ) INJECT 40 UNITS SUBCUTANEOUSLY TWICE DAILY FOR DIABETES Rx# [id number] Last Released: 12/05/23 Qty/Days Supply: Rx Expiration Date: 02/14/24 Refills Remainin Indication: FOR DIABETES OUTPT INSULIN,GLARGINE-YFGN 100UNIT/ML PEN 3ML (Status = Active) INJECT 46 UNITS SUBCUTANEOUSLY TWICE DAILY Rx# [id number] Last Released: 02/26/24 Qty/Days Supply: 08/04 Rx Expiration Date: 02/26/25 Refills Remainin Indication: FOR DIABETES OUTPT LIDOCAINE 5% PATCH (Status = Active) APPLY 1 PATCH TOPICALLY ONCE DAILY NEEDED (LEAVE PATCH ON FOR 12 HOURS, THEN REMOVE PATCH) Rx# [id number] Last Released: 11/28/23 Qty/Days Supply: Rx Expiration Date: 11/28/24 Refills Remainin Indication: BACK PAIN OUTPT LISINOPRIL 5MG TAB (Status = Active) TAKE ONE TABLET BY MOUTH ONCE DAILY TO CONTROL BLOOD PRESSURE Rx# [id number] Last Released: 01/29/24 Qty/Days Supply: Rx Expiration Date: 05/21/24 Refills Remainin OUTPT METFORMIN HCL 750MG 24HR SA TAB (Status = ) TAKE ONE TABLET BY MOUTH ONCE DAILY Rx# [id number] Last Released: 01/29/24 Qty/Days Supply: Rx Expiration Date: 02/14/24 Refills Remainin Indication: FOR TYPE 2 DIABETES MELLITUS OUTPT METFORMIN HCL 750MG 24HR SA TAB (Status = Active) TAKE ONE TABLET BY MOUTH ONCE DAILY Rx# [id number] Last Released: 02/26/24 Qty/Days Supply: Rx Expiration Date: 02/26/25 Refills Remainin Indication: FOR TYPE 2 DIABETES MELLITUS OUTPT SEMAGLUTIDE 1MG/0.75ML INJ PEN 3ML (Status = Discontinued) INJECT 1MG SUBCUTANEOUSLY ONCE A WEEK FOR TYPE 2 DIABETES MELLITUS Rx# [id number] Last Released: 02/26/24 Qty/Days Supply: 11/02 Rx Expiration Date: 11/27/24 Refills Remainin Indication: FOR TYPE 2 DIABETES MELLITUS SUPPLIES OUTPT GLUCOSE SENSOR DEXCOM G7 (Status = Discontinued) USE 1 SENSOR DIRECTED EVERY 10 DAYS Rx# [id number] Last Released: 11/10/23 Qty/Days Supply: 01/02 Rx Expiration Date: 06/04/24 Refills Remainin OUTPT GLUCOSE SENSOR DEXCOM G7 (Status = Active) USE 1 SENSOR DIRECTED EVERY 10 DAYS Rx# [id number] Last Released: 01/30/24 Qty/Days Supply: Rx Expiration Date: 12/11/24 Refills Remainin /lora/ RAISA MARES MD PRIMARY CARE PHYSICIAN Signed: 03/08/2024 09:45 03/08/2024 ADDENDUM STATUS: COMPLETED I called patient's phone number [phone] and left a voicemail-informed that abdominal x-ray and abdominal ultrasound does not show any acute findings. I encouraged the Gorin to call me back to discuss the results of above tests plus blood test results Advised the Gorin to call back at [phone] or [phone]. /lora/ RAISA MARES MD PRIMARY CARE PHYSICIAN Signed: 03/08/2024 14:57 RAISA MARES [place]
--- OUTSIDE RECORDS SUMMARY | 2024-09-30 08:38 | XMS_ITS | Encounter Summary ---
Author Name [facility] [place] [facility] [place] Address [address] [place] [address] Care Team Providers Care Columnist Name Role Phone CHANI RHODES Primary Care [...] Policy Zayas [employer] D[employer]URANCE [facility] February 03, 2022 [id number] EMERITA BAUTISTA PATIENT [facility] MEDICAID MEDICAID MEDIC AID Oct 06, 2013 MEDICAI D [id number] EMERITA BAUTISTA PATIENT MEDICARE (WNR) MEDICARE (M) PART A Mar 06, 2015 PART A [id number] EMERITA BAUTISTA PATIENT MEDICARE (WNR) MEDICARE (M) PART B Mar 06, 2015 PART B [id number] EMERITA BAUTISTA PATIENT MEDICARE (WNR) MEDICARE (M) PART B Mar 06, 2015 PART B [id number] EMERITA BAUTISTA PATIENT MEDICARE (WNR) MEDICARE (M) PART A Mar 06, 2015 PART A [id number] EMERITA BAUTISTA PATIENT MEDICARE (WNR) MEDICARE (M) PART B Mar 06, 2015 PART B [id number] [phone] EMERITA BAUTISTA PATIENT MEDICARE (WNR) MEDICARE (M) PART B Mar 06, 2015 PART B [id number] EMERITA BAUTISTA PATIENT MEDICARE (WNR) MEDICARE (M) PART A Mar 06, 2015 PART A [id number] EMERITA BAUTISTA PATIENT Selected Encounter This section includes the information on record at [place] for the Encounter. Date/Time Encounter Type Encounter Description Reason Provider Source Dec 29, 2023 09:30 AM OFFICE O/P EST MOD 30 MIN PRIMARY CARE/MEDICINE ICD-10-CM M54.50 Low back pain, unspecified VENKATA MARES Encounter Template Text not used by [place] Assessments - Encounter Diagnoses This section includes the primary and secondary diagnoses documented for the Encounter. Date/Time Primary/Secondary Diagnosis Diagnosis Name Provider Source Dec 29, 2023 10:43 AM PRIMARY Low back pain, unspecified VENKATA MARES Dec 29, 2023 10:43 AM SECONDARY Radiculopathy, cervical region VENKATA MARES Plan of Treatment: Future Appointments (+ 6 months) and Future Tests (+/- 45 days) The Plan of Treatment section includes future care activities for the patient from all [place] treatmentfacilities. This section includes future appointments and future orders which are active, pending or scheduled. Future Appointments This section includes appointments that were scheduled to occur 6 months from the date of the Encounter, up to a maximum of 20 appointments. The data comes from all [place] treatment facilities. Appointment Date/Time Appointment Type Appointme nt Facility Name February 10, 2024 02:00 PM [place] [facility] [place] [facility] Mar 08, 2024 09:00 AM [facility] MED[facility] Mar 08, 2024 11:30 AM [facility] [place]ONE [facility] Mar 22, 2024 02:15 PM [facility] [place] [facility] Apr 06, 2024 03:00 PM [facility] [place] [facility] Apr 14, 2024 09:30 AM [facility] [place] [facility] Apr 19, 2024 03:00 PM [facility] Apr 20, 2024 09:00 AM [facility] [place] [facility] Apr 28, 2024 03:00 PM [facility] [place] [facility] May 21, 2024 09:45 AM [facility] [place] [facility] Jun 10, 2024 09:30 AM [facility] [place] [facility] Jun 23, 2024 08:00 AM [facility] Jun 28, 2024 07:30 AM AMBULATORY - [facility] Vital Signs: All taken on the encounter date This section contains inpatient and outpatient Vital Signs collected on the date of the Encounter. Date/Time Temperature Pulse Blood Pressure Respiratory Rate SP02 Pain Height Weight Body Mass Index Source Dec 29, 2023 10:05 AM 97.6 87 141/90 20 96 77 280 33 [facility] Social History: Smoking Status (Most current) and Tobacco Use (All prior to encounter date) This section includes the most current, and the historical, smoking and tobacco- related health factors from the [place] facility where the Encounter took place. Current Smoking Status This section includes the most current smoking, or tobacco-related health factor, from the [place] facility where the Encounter took place. Date/Time Current Smoking Status Comment Ana itracquel Mar 27, 2022 09:30 AM VA-TOBACCO FORMER USER [facility] Tobacco Use History This section includes a history of the smoking, or tobacco-related health factors, that were collected on or before the date of the Encounter. The data comes from the [place] facility where the Encounter took place. Date/Time Smoking Status/Tobacco Use Comment F acraul Mar 27, 2022 09:30 AM VA-TOBACCO QUIT 15 YRS OR MORE [facility] Dec 22, 2018 10:29 AM VA-TOBACCO FORMER USER [facility] Dec 22, 2018 10:29 AM VA-TOBACCO QUIT 15 YRS OR MORE [facility] Mar 19, 2018 11:33 AM VA-TOBACCO FORMER USER [facility] Mar 19, 2018 11:33 AM VA-TOBACCO QUIT 15 YRS OR MORE [facility] May 13, 2017 01:22 PM QUIT TOBACCO USE > 7 YEARS AGO quit 24 yrs ago [facility] Nov 15, 2015 09:48 AM QUIT TOBACCO USE > 7 YEARS AGO States he last smoked 21 years ago [facility] Dec 07, 2009 02:51 PM QUIT TOBACCO USE > 7 YEARS AGO [facility] Advance Directives: All historical and current Section Date Range: From patient's date of to the date document was created. This section includes ALL of a patient's completed or amended VA Advance and Rescinded Directives. The entries below indicate that a directive exists for the patient, but an actual copy is not included with this document. The data comes from all [place] facilities. Date Advance Directives Provider Source May [...] the Encounter. The data comes from all [place] treatment facilities. 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 Img Loc: OUTSIDE GENERAL RADIOLOGY Service: Unknown (Case [id number] COMPLETE) OUTSIDE MRI CERVICAL SPINE (RAD Detailed) CPT:01298 Reason for Study: acute on chronic neck, mid and low back pain with radiation LLE Clinical History: no hx trauma Report Status: Electronically Filed Date Reported: DEC 25, 2023 Report: Community care exam; see CPRS/JLV for outside radiology report/results Impression: Community care exam; see CPRS/JLV for outside radiology report/results Primary Diagnostic Code: VERIFIED BY: / *ELECTRONICALLY FILED* [place] [facility] [place] [facility] Encounter Notes: All associated encounter notes This section contains the clinical notes associated to the Encounter. Date/Time Encounter Note(s) Provider Source Dec 29, 2023 10:13 AM PHYSICIAN NOTE: LOCAL TITLE: MD NOTE STANDARD TITLE: PHYSICIAN NOTE DATE OF NOTE: DEC 29, 2023@10:13 ENTRY DATE: DEC 29, 2023@10:13:50 AUTHOR: VENKATA MARES COSIGNER: URGENCY: STATUS: COMPLETED HISTORY OF PRESENT ILLNESS: EMERITA BAUTISTA, is a 58 yo MALE , who presents at the [facility] for complaint of chronic low back pain, neck pain with left radiculopathyleft shoulder numbness on and off MRI cervical, thoracic, lumbar labs- no new Non- VA providers- NA Active problems - Computerized Problem List is the source for the followin-chronic low back pain 2- Chronic neck pain with left radiculopathy The following VA and Non-VA meds were reconciled with patient: Active Outpatient Medications (including Supplies): Issue Date Status Last Fill Active Outpatient Medications Refills Expiration === 1) ACETAMINOPHEN 500MG TAB Qty: 200 for [...] days Sig: USE 1 SENSOR DIRECTED Refills: 5 Last:12-11-23 EVERY 10 DAYS Expr:12-11-24 8) INSULIN,ASPART(EQV-NOVLG)100UN/ML FLXPEN ACTIVE Issu:01-10-23 Qty: 20 for 56 days Sig: INJECT 25 Refills: 1 Last:12-05-23 UNITS SUBCUTANEOUSLY BEFORE BREAKFAST Expr:01-11-24 AND INJECT 25 UNITS BEFORE LUNCH AND INJECT 25 UNITS BEFORE SUPPER (SKIP DOSE IF MEAL IS SKIPPED) 9) INSULIN,GLARGINE-YFGN 100UNIT/ML PEN 3ML ACTIVE Issu:02-13-23 Qty: 20 for 60 days Sig: INJECT 40 Refills: 1 Last:12-05-23 UNITS SUBCUTANEOUSLY TWICE DAILY FOR Expr:02-14-24 DIABETES 10) LIDOCAINE 5% PATCH Qty: 30 for 30 days ACTIVE Issu:11-28-23 Sig: APPLY 1 PATCH TOPICALLY ONCE Refills: 3 Last:11-28-23 DAILY NEEDED (LEAVE PATCH ON FOR 12 Expr:11-28-24 HOURS, THEN REMOVE PATCH) 11) LISINOPRIL 5MG TAB Qty: 90 for 90 days ACTIVE Issu:05-21-23 Sig: TAKE ONE TABLET BY MOUTH ONCE Refills: 2 Last:10-07-23 DAILY TO CONTROL BLOOD PRESSURE Expr:05-21-24 12) METFORMIN HCL 750MG 24HR SA TAB Qty: 90 ACTIVE Issu:02-13-23 for 90 days Sig: TAKE ONE TABLET BY Refills: 1 Last:06-02-23 MOUTH ONCE DAILY Expr:02-14-24 13) SEMAGLUTIDE 1MG/0.75ML INJ PEN 3ML Qty: ACTIVE Issu:11-27-23 1 for 28 days Sig: INJECT 1MG Refills: 4 Last:11-28-23 SUBCUTANEOUSLY ONCE A WEEK FOR TYPE 2 Expr:11-27-24 DIABETES MELLITUS ALLERGIES: ========= Patient has answered NKA LAB HISTORY: no new labs PMH: HTN, HLP, DM type 2, Diverticulosis, [...] years ago HISTORY: PERIOD OF SERVICE - [employer] FROM Jun TO Apr COMBAT SERVICE INDICATED: No REVIEW OF SYSTEMS: No fever, chills, No chest pain shortness of breath No abdominal pain, negative for physical incontinence No urine incontinence Chronic low back pain on and off; chronic neck pain radiating on left shoulder No tingling or numbness in upper or lower extremities, perineal area Negative for urinary or feces incontinence PHYSICAL EXAMINATION: WD/obese seems to be in mild distress due to his neck and lower back pain S1-S2 positive, RRR YUE, CTA bilateral Abdomen soft nontender to palpation No edema lower extremities AAO x3; ambulates without help ASSESSMENT/PLAN: 1-chronic low back pain-continue Tylenol, lidocaine patch, diclofenac gel, He refuses physical therapy acupuncturehe tried in the past without any help He refused at this moment chiropractor 2- Chronic neck pain with left radiculopathy Diclofenac gel, gabapentin, Tylenol, cyclobenzaprine,-with minimal improvement He does not want prescription for cyclobenzaprine as does not help MRI of the cervical thoracic spine done MRI cervical spine shows moderate to severe left-sided and moderate right-sided neural foraminal narrowing C5-C6 MRI of thoracic spine multiple level arthritis MRI of lumbar spine multiple level arthritis-unchanged on comparison MRI in fall 2022 Pain management consultation placed Orthopedics consultation placed The refused the physiatry consultation in [place] for epidural steroid injections FOLLOW UP: ========= RTC -as previous decided in March 2023 or earlier with any new medical complaints Today's documentation was made using voice recognition software. This note may contain spelling/grammatical errors secondary to this software. Every effort is made to correct errors, but if mistakes are found they need to be taken in context. UPCOMING APPOINTMENTS: 01/08/2024 15:00 CWM/SO/PHARM/PACT 2 03/08/2024 09:00 CWM/SO/PACT EIGHT 04/20/2024 09:00 NHM/OPTOMETRY/WELSH/ No barriers; Patient understands [...] [facility] No Known [facility]ies [facility] NO KNOWN ALLERGIES Med Recon [...] display of VA prescriptions dispensed from another VA or DoD facility (remote) is limited to active outpatient prescription entries matched to National Drug File at the originating site and may not include some items such as investigational drugs, compounds, etc. NOT INCLUDED IN THIS LIST: Medications self-entered by the patient into personal health records (i.e. [employer]) are NOT included in this list. Non-VA medications documented outside this [place], remote inpatient orders (regardless of status) and remote clinic medications are NOT included in this list. The patient and provider must always discuss medications the patient is taking, regardless of where the medication was dispensed or obtained. -- OUTPT ACETAMINOPHEN 500MG TAB (Status = Discontinued) TAKE TWO TABLETS BY MOUTH THREE TIMES DAILY NEEDED FOR PAIN Rx# [id number] Last Released: 10/14/22 Qty/Days Supply: 20030 Rx Expiration Date: 10/15/23 Refills Remainin OUTPT ACETAMINOPHEN 500MG TAB (Status = Active) TAKE TWO TABLETS BY MOUTH THREE TIMES DAILY NEEDED FOR PAIN Rx# [id number] Last Released: 11/28/23 Qty/Days Supply: 20030 Rx Expiration Date: 11/28/24 Refills Remainin OUTPT ATORVASTATIN CALCIUM 80MG TAB (Status = Active) TAKE ONE TABLET BY MOUTH AT BEDTIME FOR HIGH CHOLESTEROL Rx# [id number] Last Released: 11/28/23 Qty/Days Supply: 90 Rx Expiration Date: 11/28/24 Refills Remainin Indication: FOR HIGH CHOLESTEROL OUTPT CHOLECALCIF 50MCG (D3-2,000UNIT) TAB (Status = Active) TAKE ONE TABLET BY MOUTH ONCE DAILY FOR VITAMIN SUPPLEMENTATION Rx# [id number] Last Released: 12/18/23 Qty/Days Supply: 100/ Rx Expiration Date: 12/15/24 Refills Remainin Indication: FOR VITAMIN D DEFICIENCY OUTPT CYCLOBENZAPRINE HCL 10MG TAB (Status = ) TAKE ONE TABLET BY MOUTH AT BEDTIME NEEDED FOR MUSCLE SPASM Rx# [id number] Last Released: 11/28/23 Qty/Days Supply: 04/08 Rx Expiration Date: 12/28/23 Refills Remainin Indication: FOR MUSCLE SPASM OUTPT DICLOFENAC NA 1% TOP GEL (Status = Active) APPLY 4 GRAMS TOPICALLY TWICE DAILY NEEDED FOR OSTEOARTHRITIS - USE DOSING CARD PROVIDED IN BOX Rx# [id number] Last Released: 05/21/23 Qty/Days Supply: 100/ Rx Expiration Date: 05/21/24 Refills Remainin Indication: FOR JOINT PAIN OUTPT EMPAGLIFLOZIN 25MG TAB (Status = Discontinued) TAKE ONE TABLET BY MOUTH ONCE DAILY Rx# [id number] Last Released: 08/19/23 Qty/Days Supply: 6060 Rx Expiration Date: 01/11/24 Refills Remainin Indication: FOR TYPE 2 DIABETES MELLITUS OUTPT EMPAGLIFLOZIN 25MG TAB (Status = Discontinued) TAKE ONE TABLET BY MOUTH ONCE DAILY Rx# [id number] Last Released: 10/15/23 Qty/Days Supply: 6060 Rx Expiration Date: 10/07/24 Refills Remainin Indication: FOR TYPE 2 DIABETES MELLITUS OUTPT EMPAGLIFLOZIN 25MG TAB (Status = Active) TAKE ONE TABLET BY MOUTH ONCE DAILY Rx# [id number] Last Released: 10/17/23 Qty/Days Supply: 90 Rx Expiration Date: 10/17/24 Refills Remainin Indication: FOR TYPE 2 DIABETES MELLITUS OUTPT GABAPENTIN 100MG CAP (Status = Active) TAKE ONE CAPSULE BY MOUTH EVERY MORNING AND TAKE TWO CAPSULES AT BEDTIME FOR NERVE PAIN Rx# [id number] Last Released: 12/12/23 Qty/Days Supply: / Rx Expiration Date: 03/11/24 Refills Remainin Indication: FOR NERVE PAIN OUTPT INSULIN,ASPART(EQV-NOVLG)100UN/ML FLXPEN (Status = Active) INJECT 25 UNITS SUBCUTANEOUSLY BEFORE BREAKFAST AND INJECT 25 UNITS BEFORE LUNCH AND INJECT 25 UNITS BEFORE SUPPER (SKIP DOSE IF MEAL IS SKIPPED) Rx# [id number] Last Released: 12/05/23 Qty/Days Supply: Rx Expiration Date: 01/11/24 Refills Remainin OUTPT INSULIN,GLARGINE-YFGN 100UNIT/ML PEN 3ML (Status = Active) INJECT 40 UNITS SUBCUTANEOUSLY TWICE DAILY FOR DIABETES Rx# [id number] Last Released: 12/05/23 Qty/Days Supply: Rx Expiration Date: 02/14/24 Refills Remainin Indication: FOR DIABETES OUTPT LIDOCAINE 5% PATCH (Status = Discontinued) APPLY 1 PATCH TOPICALLY ONCE DAILY NEEDED (LEAVE PATCH ON FOR 12 HOURS, THEN REMOVE PATCH) Rx# [id number] Last Released: 05/21/23 Qty/Days Supply: 30 Rx Expiration Date: 10/15/23 Refills Remainin Indication: BACK PAIN OUTPT LIDOCAINE 5% PATCH (Status = Active) APPLY 1 PATCH TOPICALLY ONCE DAILY NEEDED (LEAVE PATCH ON FOR 12 HOURS, THEN REMOVE PATCH) Rx# [id number] Last Released: 11/28/23 Qty/Days Supply: Rx Expiration Date: 11/28/24 Refills Remainin Indication: BACK PAIN OUTPT LISINOPRIL 5MG TAB (Status = Active) TAKE ONE TABLET BY MOUTH ONCE DAILY TO CONTROL BLOOD PRESSURE Rx# [id number] Last Released: 10/07/23 Qty/Days Supply: Rx Expiration Date: 05/21/24 Refills Remainin OUTPT METFORMIN HCL 750MG 24HR SA TAB (Status = Active) TAKE ONE TABLET BY MOUTH ONCE DAILY Rx# [id number] Last Released: 06/02/23 Qty/Days Supply: Rx Expiration Date: 02/14/24 Refills Remainin Indication: FOR TYPE 2 DIABETES MELLITUS OUTPT SEMAGLUTIDE 0.25MG/0.375ML INJ PEN 3ML (Status = Discontinued) INJECT 0.25MG SUBCUTANEOUSLY ONCE A WEEK FOR 2 WEEKS, THEN INJECT 0.5MG ONCE A WEEK Rx# [id number] Last Released: 10/17/23 Qty/Days Supply: 11/02 Rx Expiration Date: 11/16/23 Refills Remainin Indication: FOR TYPE 2 DIABETES MELLITUS OUTPT SEMAGLUTIDE 0.25MG/0.375ML INJ PEN 3ML (Status = Discontinued) INJECT 0.5MG SUBCUTANEOUSLY ONCE A WEEK FOR TYPE 2 DIABETES MELLITUS Rx# [id number] Last Released: 11/05/23 Qty/Days Supply: 11/02 Rx Expiration Date: 11/04/24 Refills Remainin Indication: FOR TYPE 2 DIABETES MELLITUS OUTPT SEMAGLUTIDE 1MG/0.75ML INJ PEN 3ML (Status = Discontinued) INJECT 1MG SUBCUTANEOUSLY ONCE A WEEK Rx# [id number] Last Released: 07/31/23 Qty/Days Supply: Rx Expiration Date: 03/28/24 Refills Remainin Indication: FOR TYPE 2 DIABETES MELLITUS OUTPT SEMAGLUTIDE 1MG/0.75ML INJ PEN 3ML (Status = Active) INJECT 1MG SUBCUTANEOUSLY ONCE A WEEK FOR TYPE 2 DIABETES MELLITUS Rx# [id number] Last Released: 11/28/23 Qty/Days Supply: 11/02 Rx Expiration Date: 11/27/24 Refills Remainin Indication: FOR TYPE 2 DIABETES MELLITUS -- SUPPLIES -- OUTPT ACCU-CHEK GUIDE (GLUCOSE) TEST STRIP (Status = ) USE 1 STRIP TO TEST BLOOD SUGARS THREE TIMES A DAY Rx# [id number] Last Released: 11/06/22 Qty/Days Supply: 300/90 Rx Expiration Date: 11/07/23 Refills Remainin OUTPT ALCOHOL PREP PAD (Status = ) USE 1 PAD TOPICALLY THREE TIMES A DAY TO CLEAN SKIN FOR INJECTION ETC Rx# [id number] Last Released: 11/06/22 Qty/Days Supply: 400/90 Rx Expiration Date: 11/07/23 Refills Remainin OUTPT GLUCOSE SENSOR DEXCOM G7 (Status = Discontinued) USE 1 SENSOR DIRECTED EVERY 10 DAYS Rx# [id number] Last Released: 11/10/23 Qty/Days Supply: 01/02 Rx Expiration Date: 06/04/24 Refills Remainin OUTPT GLUCOSE SENSOR DEXCOM G7 (Status = Active) USE 1 SENSOR DIRECTED EVERY 10 DAYS Rx# [id number] Last Released: 12/11/23 Qty/Days Supply: Rx Expiration Date: 12/11/24 Refills Remainin OUTPT LANCET,SOFTCLIX (Status = ) USE 1 LANCET TOPICALLY THREE TIMES A DAY TO TEST BLOOD SUGAR Rx# [id number] Last Released: 11/06/22 Qty/Days Supply: 300/90 Rx Expiration Date: 11/07/23 Refills Remainin /lora/ VENKATA MARES MD PRIMARY CARE PHYSICIAN Signed: 12/29/2023 10:43 VENKATA MARES [facility]
--- OUTSIDE RECORDS SUMMARY | 2024-09-30 08:38 | XMS_ITS | Encounter Summary ---
Author Name [facility] [place] [facility] [place] [facility] [place] [facility] [place] Address [address] [place] [address] Care Team Providers Care Assistant Chief Nursing Officer Name Role Phone CHANI RHODES Primary [...] to Policy Zayas CIGNA DENTAL DENTAL INSURANCE [facility] February 03, 2022 [id number] EMERITA RIVERA PATIENT [facility] MEDICAID MEDICAID MEDIC AID Oct 06, 2013 MEDICAI D [id number] EMERITA RIVERA PATIENT MEDICARE (WNR) MEDICARE (M) PART A Mar 06, 2015 PART A [id number] [phone] EMERITA RIVERA PATIENT MEDICARE (WNR) MEDICARE (M) PART B Mar 06, 2015 PART B [id number] [phone] EMERITA RIVERA PATIENT MEDICARE (WNR) MEDICARE (M) PART B Mar 06, 2015 PART B [id number] EMERITA RIVERA PATIENT MEDICARE (WNR) MEDICARE (M) PART A Mar 06, 2015 PART A [id number] EMERITA RIVERA PATIENT MEDICARE (WNR) MEDICARE (M) PART B Mar 06, 2015 PART B [id number] [phone] EMERITA RIVERA PATIENT MEDICARE (WNR) MEDICARE (M) PART B Mar 06, 2015 PART B [id number] EMERITA RIVERA PATIENT MEDICARE (WNR) MEDICARE (M) PART A Mar 06, 2015 PART A [id number] EMERITA RIVERA PATIENT Selected Encounter This section includes the information on record at PA for the Encounter. Date/Time Encounter Type Encounter Description Reason Provider Source February 10, 2024 02:00 PM OFF/OP CONSLTJ NEW/EST HI [facility] ICD-10-CM M54.50 Low back pain, unspecified KUPFERSCHMID,S ETH B E Encounter Template Text not used by PA Assessments - Encounter Diagnoses This section includes the primary and secondary diagnoses documented for the Encounter. Date/Time Primary/Secondary Diagnosis Diagnosis Name Provider Source February 12, 2024 09:19 AM PRIMARY Low back pain, unspecified KUPFERSCHMID,S ETH [facility] [place] [facility] February 12, 2024 09:19 AM SECONDARY Primary osteoarthritis, unspecified site KUPFERSCHMID,S ETH B [facility] [place] [facility] February 12, 2024 09:19 AM SECONDARY Radiculopathy, cervical region KUPFERSCHMID,S ETH B [facility] Plan of Treatment: Future Appointments (+ 6 months) and Future Tests (+/- 45 days) The Plan of Treatment section includes future care activities for the patient from all PA treatmentfacilities. This section includes future appointments and future orders which are active, pending or scheduled. Future Appointments This section includes appointments that were scheduled to occur 6 months from the date of the Encounter, up to a maximum of 20 appointments. The data comes from all PA treatment facilities. Appointment Date/Time Appointment Type Appointme nt Facility Name Mar 08, 2024 09:00 AM AMBULATORY - [facility]ICINE [facility] [place] Mar 08, 2024 11:30 AM AMBULATORY - NONE [facility] [place] [facility] Mar 22, 2024 02:15 PM AMBULATORY - MEDICINE [facility] [place] [facility] Apr 06, 2024 03:00 PM AMBULATORY - MEDICINE [facility] [place] [facility] Apr 14, 2024 09:30 AM AMBULATORY - MEDICINE [facility] [place] [facility] Apr 19, 2024 03:00 PM [facility] Apr 20, 2024 09:00 AM AMBULATORY - MEDICINE [facility] [place] [facility] Apr 28, 2024 03:00 PM AMBULATORY - MEDICINE [facility] [place] [facility] May 21, 2024 09:45 AM AMBULATORY - MEDICINE [facility] [place] [facility] Jun 10, 2024 09:30 AM AMBULATORY - MEDICINE [facility] [place] [facility] Jun 23, 2024 08:00 AM [facility]ORY - [facility] Jun 28, 2024 07:30 AM [facility] [place] Jul 01, 2024 02:45 PM AMBULATORY - MEDICINE [facility] [place] [facility] Jul 06, 2024 08:00 AM [facility]INE [facility] Jul 13, 2024 10:00 AM AMBULATORY - [facility] [place] Jul 28, 2024 10:00 AM AMBULATORY - [facility] [place] Aug 05, 2024 09:30 AM AMBULATORY - MEDICINE [facility] [place] [facility] Lab Results: +/- 30 days of the encounter This section includes the Chemistry and Hematology Lab Results on record with PA for the patient. Radiology Reports and Pathology Reports are provided separately, in subsequent sections. Lab Results This section contains the Chemistry/Hematology Results that were resulted 30 days before or 30 daysafter the date of the Encounter. Date/Time Source Result Type Result - Unit Interpretation Reference Range Comment Mar 08, 2024 09:42 AM [facility] LIPID PANEL FASTING Specimen Type: SERUM No comment entered. Ordering Provider: VENKATA MARES Report Released Date/Time: Nov 28, 2023 09:56 AM Reporting Lab: [facility] [place] [address] [address] Performing Lab: [facility] [address] [facility] [address] CHOLESTEROL 126 mg/dL TRIGLYCERIDE 197 mg/dL H 0-150 LDL calculated 57 mg/dL 0-129 CHOL/HDL 4.2 HDL CHOLESTEROL 30 mg/dL L 40-60 Mar 08, 2024 09:42 AM [place] BASIC METABOLIC PANEL (fasting) Specime n Type: SERUM No comment entered. Ordering Provider: VENKATA MARES Report Released Date/Time: Nov 28, 2023 09:56 AM Reporting Lab: [facility] [address] [facility] [address] Performing Lab: [address] [address] UREA NITROGEN 14 mg/dL 7-25 GLUCOSE 230 mg/dL H 65-100 SODIUM 139 mmol/L 135-145 POTASSIUM 4.2 mmol/L 3.5-5.0 CHLORIDE 108 mmol/L 100-110 CO2 22 meq/L 20-30 CREATININE, Serum 1.22 mg/dL 0.50-1.40 eGFR(CKD-EPI 2020) 68 mL/min >60 Mar 08, 2024 09:42 AM [facility] HEMOGLOBIN A1C PANEL Specimen Type: BLOOD Comment: Values obtained from A1C measurements can vary. For atypical A1C assays, a reported value of 7.0 could actually be between 6.72 and 7.28 if measured by a reference method. A reported value of 9.0 could actually be between 8.73 and 9.27. Ref: http://www.ngsp. org/CAPdata.asp Ordering Provider: VENKATA MARES Report Released Date/Time: Nov 28, 2023 09:56 AM Reporting Lab: [facility] [address] [facility] [address] Performing Lab: [address] [address] HEMOGLOBIN A1C 7.4 H 4.0-5.6 Mar 08, 2024 09:42 AM [place] LIVER FUNCTION Specimen Type: SERUM No comment entered. Ordering Provider: VENKATA MARES Report Released Date/Time: Nov 28, 2023 09:56 AM Reporting Lab: [facility] [address] [address] Performing Lab: [address] [address] PROTEIN,TOTAL 7.7 g/dL 6.0-8.3 ALBUMIN 4.3 g/dL 3.5-5.0 ALKALINE PHOSPHATASE 90 U/L 40-150 AST 26 U/L 5-34 ALT 46 U/L BILIRUBIN, TOTAL 1.2 mg/dL 0.2-1.2 BILIRUBIN, DIRECT 0.4 mg/dL 0-0.5 Mar 08, 2024 09:42 AM [facility] CBC Specimen Type: BLOOD No comment entered. Ordering Provider: VENKATA MARES Report Released Date/Time: Nov 28, 2023 09:56 AM Reporting Lab: [address] [address] Performing Lab: [address] [address] WBC 6.55 10*3/uL 4.50-11.00 RBC 5.57 10*6/uL 4.23-5.66 HGB 17.0 g/dL 12.8-17 HCT 50.1 39.2-50.4 MCV 89.9 fL 82-99 MCHC 33.9 g/dL 30.8-35.1 PLT 123 10*3/uL L 140-360 RDW-CV 12.9 12.0-16.0 MCH 30.5 pg 26.2-32.6 Mar 08, 2024 09:42 AM [facility] VITAMIN D 25-OH (Therapy monitor) Speci men [...] For additional information, please refer to http://education .[employer]/faq/DUD633 (This link is being provided for informational/ educational purposes only.) This test was developed and its analytical performance characteristics have been determined by [facility] [place]. It has not been cleared or approved by the U.S. Food and Drug Administration. This assay has been validated pursuant to the CLIA regulations and is used for clinical purposes. This test was developed and its analytical performance characteristics have been determined by [facility] [place] [place]. It has not been cleared or approved by the U.S. Food and Drug Administration. This assay has been validated pursuant to the CLIA regulations and is used for clinical purposes. Test [facility], [facility], [address] [place], [place] Mohit Cazares M.D., Ph.D., Director of Laboratories , CLIA [id number] TEST PERFORMED AT: , Ordering Provider: VENKATA MARES Report Released Date/Time: Mar 08, 2024 09:16 AM Reporting Lab: [facility] [address] [facility] [address] Performing Lab: [facility] [address] [address] VITAMIN D, 25-OH, TOTAL 19 ng/mL L 30-100 VITAMIN D, 25-OH, D3 19 ng/mL VITAMIN D, 25-OH, D2 <4 ng/mL Mar 08, 2024 09:42 AM [facility] AMYLASE Specimen Type: SERUM No comment entered. Ordering Provider: VENKATA MARES Report Released Date/Time: Mar 08, 2024 09:34 AM Reporting Lab: [facility] [address] [facility] [address] Performing Lab: [facility] [address] [facility] [address] AMYLASE 67 U/L 25-125 Mar 08, 2024 09:42 AM [facility] LIPASE Specimen Type: SERUM No comment entered. Ordering Provider: VENKATA MARES Report Released Date/Time: Mar 08, 2024 09:34 AM Reporting Lab: [address] [address] Performing Lab: [facility] [address] [facility] [address] LIPASE 53 U/L 8 Social History: Smoking Status (Most current) and Tobacco Use (All prior to encounter date) This section includes the most current, and the historical, smoking and tobacco- related health factors from the PA facility where the Encounter took place. Current Smoking Status This section includes the most current smoking, or tobacco-related health factor, from the PA facility where the Encounter took place. Date/Time Current Smoking Status Comment Facil ity Mar 11, 2023 08:30 AM PA-TOBACCO FORMER USER [facility] Tobacco Use History This section includes a history of the smoking, or tobacco-related health factors, that were collected on or before the date of the Encounter. The data comes from the PA facility where the Encounter took place. Date/Time Smoking Status/Tobacco Use Comment F acility Mar 11, 2023 08:30 AM PA-TOBACCO QUIT 15 YRS OR MORE [facility] Dec 27, 2020 02:00 PM VA-TOBACCO FORMER USER [facility] Dec 27, 2020 02:00 PM PA-TOBACCO QUIT 15 YRS OR MORE [facility] Advance Directives: All historical and current Section Date Range: From patient's date of to the date document was created. This section includes ALL of a patient's completed or amended PA Advance and Rescinded Directives. The entries below indicate that a directive exists for the patient, but an actual copy is not included with this document. The data comes from all PA facilities. Date Advance Directives Provider Source May [...] the Encounter. The data comes from all PA treatment facilities. Date/Time Radiology Report Provider Source Mar 08, 2024 11:29 AM ABDOMEN (2 VIEWS): EMERITA RIVERA [id number] -1965 M Exm Date: MAR 08, 2024@11:29 Req Phys: STELEA,VENKATA F Pat Loc: CWM/SO/PACT EIGHT WH (Req'g Lo Img Loc: [facility]/BUILDING 1 Service: Unknown [facility] , (Case 37 COMPLETE) ABDOMEN (2 VIEWS) (RAD Detailed) CPT:51241 Reason for Study: abdominal discomfort Clinical History: nausea, vomiting Report Status: Verified Date Reported: MAR 08, 2024 Date Verified: MAR 08, 2024 Facility Planner E-Sig:/ES/TERESA BLOUNT JR Report: Study: KUB supine [...] Primary Interpreting Staff: TERESA BLOUNT JR, Radiologist (Facility Planner) /TERESA AGUILAR JR [facility] Mar 08, 2024 11:07 AM ABDOMINAL ULTRASOUND: EMERITA RIVERA [id number] -1965 M Exm Date: MAR 08, 2024@11:07 Req Phys: DEBORAHAKATIEVENKATA F Pat Loc: CWM/SO/PACT EIGHT WH (Req'g Lo Img Loc: ULTRASOUND Service: Unknown [facility] , (Case 32 COMPLETE) ULTRASOUND ABDOMEN (US Detailed) CPT:88606 Reason for Study: abdominal discomfort Clinical History: nausea, vomiting Report Status: Verified Date Reported: MAR 08, 2024 Date Verified: MAR 08, 2024 Facility Planner E-Sig:/ES/TERESA BLOUNT JR Report: Study: Abdomen ultrasound. [...] Primary Interpreting Staff: TERESA BLOUNT JR, Radiologist (Facility Planner) /TERESA AGUILAR JR [facility] Encounter Notes: All associated encounter notes This section contains the clinical notes associated to the Encounter. Date/Time Encounter Note(s) Provider Source February 10, 2024 03:12 PM ACCOUNTING OF DISCLOSURES NOTE: LOCAL TITLE: [facility] PRESCRIPTION DRUG MONITORING PROGRAM STANDARD TITLE: ACCOUNTING OF DISCLOSURES NOTE DATE OF NOTE: FEBRUARY 10, 2024@15:12:24 ENTRY DATE: FEBRUARY 10, 2024@15:12:24 AUTHOR: SABA MORA EXP COSIGNER: URGENCY: STATUS: COMPLETED This PDMP query was submitted by Saba Mora MD. The clinical justification for this PDMP query is to review controlled substances prescribed outside of the [facility], and any additional information that may become available, as an important component of standard clinical care, and in accordance with [facility] policy. Patient information was shared with the PDMP [facility]. No prescription(s) for controlled substances outside the [facility] were found in the last 90 days. /lora/ SABA MORA MD PHYSICIAN Signed: 02/10/2024 15:12 SABA MORA [facility] February 10, 2024 03:12 PM PAIN MEDICATION MGT NOTE: LOCAL TITLE: OPIOID/CONTROLLED SUBSTANCE NOTE STANDARD TITLE: PAIN MEDICATION MGT NOTE DATE OF NOTE: FEBRUARY 10, 2024@15:12 ENTRY DATE: FEBRUARY 10, 2024@15:12:50 AUTHOR: SABA MORA EXP COSIGNER: URGENCY: STATUS: COMPLETED OPIOID/CONTROLLED SUBSTANCE NOTE Initial Opioid Prescription Indication for therapy: Opioid trial for chronic pain Risk of Opioid therapy was assessed using: [employer] database Chart Review Risk Assessment: - Using the STORM tool and your own clinical judgment, please select your risk assessment. Low risk Prescription Drug Monitoring Program (PDMP): A PDMP note is required at every new prescription for a controlled substance. PDMP HISTORY 1 YEAR Info Disclosed: Patient Demographics Purpose: Accessing Prescription Drug Monitoring Program (PDMP) databases for review of controlled substances prescribed outside of the [place], and any additional information that may become available, as an important component of standard clinical care and in accordance with [facility] policy. 02/10/24 15:11 Saba Mora MD PDMP [facility] Urine Drug Screen: A urine drug screen is required prior to reaching 90 days of opioid therapy and at least annually thereafter. No data available for: OPIATES SCREEN OXYCODONE SCREEN METHADONE SCREEN BENZODIAZEPINES SCREEN COCAINE SCREEN CANNABINOIDS SCREEN ALCOHOL, ETHYL URINE AMPHETAMINES SCREEN BUPRENORPHINE (URINE) Ethyl Glucuronide Screen Ethyl Sulfate Ethyl Glucuronide Conf Most Recent Naloxone Prescription Information: No prior Naloxone prescription was found. /lora/ SABA MORA MD PHYSICIAN Signed: 02/12/2024 09:19 SABA MORA [facility] February 10, 2024 02:00 PM PAIN MEDICINE CONSULT: LOCAL TITLE: CONSULT REPORT/PAIN CLINIC STANDARD TITLE: PAIN MEDICINE CONSULT DATE OF NOTE: FEBRUARY 10, 2024@14:00 ENTRY DATE: FEBRUARY 10, 2024@14:00:36 AUTHOR: SABA MORA EXP COSIGNER: URGENCY: STATUS: COMPLETED VENKATA MARES requested consultation with to EMERITA Shin with management of their chronic pain conditions. BRIEF SUMMARY Mr. Rivera is a 58 year old [employer] , 70% service-connected for musculoskeletal injuries, who came to the Pain Clinic due to pain in his lower back and left knee primarily. 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 He used to work in a [employer] center. He is with 3 children (as well as 3 grown daughters from a previous marriage. 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 He reports he drank alcohol to excess and participated in other bad habits that he stopped about 30 years ago. He does not drink alcohol. He has not used opioid medications, except for brief prescriptions after procedures. He reports he does not have issues with depression or anxiety. He reports pain contributes to irritability and he is not as social or upbeat as he would be without the pain. ASSESSMENT and PLAN 58 year old [employer] Sarah, 70% service-connected for musculoskeletal injuries, with DDD and DJD affecting his low back and right knee; he has mid-back and neck pain also. CHRONIC PAIN, LOW BACK and KNEES Many years, progressing, activity limited (which he accepts), affects mood, increases irritability, impairs sleep. He has tried basic treatments which provide limited and insufficient relief. Many positive and supportive factors (, active with family, sikhism, volunteer activities, employed). Discussion about opioid trial while getting further evaluation for DJD and DDD. -Vicodin for intermittent use; he understands he may progress to [place] if he gets benefit. -Continue gabapentin. LEFT KNEE He will contact Ortho about scheduling appt to start joint replacement process. WEIGHT, DM2 For consideration with other medications. ED Many years. He had hopes that pain management may help this issue that is likely due to DM. GENERAL This first meeting was to establish a relationship, build trust, educate regarding the goals of pain management in relation to other conditions like PTSD and sleep issues. INTERDISCIPLINARY PAIN TEAM and PAIN EDUCATION Sarah may benefit from referral to IPT, Emp[facility]ered [facility], or Active Management of Pain. Will discuss with at appropriate time. FOLLOW UP 4-6 weeks [ ] 60-75 minute consult [x] 76-90 minute consult [ ] 91-105 minute consult F2F/VVC with to obtain history, provide initial education and counseling, engage in shared decision making of plan Complete clinical reminders Review PDMP Review past records in CPRS, JLV, and outside sources Order appropriate labs, tests, consults Order medications Coordinate care Documentation HISTORY PAIN Back pain, lower, mid, and neck -Hard to get out of bed, 30-40 minutes to mobilize, hot shower. -Pain radiates to legs Neuropathy from diabetes in feet and toes to calfs. Has not seen back specialist. Leg knee pain, right knee replaced Chiro - no Acupuncture - not helpful Relaxation/Meditation CHART REVIEW MRI 12/25/2003 Impression: Degenerative changes throughout the cervical, thoracic, and lumbar spine with most advanced findings at C5-C6 where there is mild to moderate severe left neural foraminal narrowing. SLEEP ----- ASSISTIVE DEVICES None PAIN-RELATED PROBLEMS DDD DJD SURGICAL HISTORY Right knee replacement Arch repair Knee arthroscopy RELEVANT MEDICATION HISTORY - Gabapentin - sedating No opioids in past RISK MITIGATION PDMP last date: 02/10/2024 No STATE PRESCRIPTION DRUG MONITORING PROGRAM (SPDMP) NOTE note found. UDS last date: LTOT consent: [employer] FROM Jun TO Apr Service Connected Disabilities with % Eligibility: SERVICE CONNECTED 50% to 100% VERIFIED Total S/C %: 70 LIMITED EXTENSION OF KNEE 10% KNEE PROSTHESIS 30% LIMITED FLEXION OF KNEE 10% LIMITED EXTENSION OF KNEE 20% LIMITED MOTION OF ANKLE 20% TINNITUS 10% SOCIAL HISTORY 3 children (son, graciela in college; daughter graduating HS; son NOEMY isaac, excellent manager school); 3 grown daughters and grandchildren in [facility]. 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 Active in sikhism and volunteer work. FAMILY HISTORY SUBSTANCE USE HISTORY Tobacco: None ETOH: None; stopped 20 years ago. Marijuana: None. Illicit drugs: None. EXAM Large person Antalgic gait VITAL SIGNS: Temperature 97.6 F [36.4 C] (12/29/2023 10:05) Blood Pressure 141/90 (12/29/2023 10:05) Pulse 87 (12/29/2023 10:05) Respiration 20 (12/29/2023 10:05) Pain 6 (12/12/2023 10:10) BMI BMI: 33.3 Weight 280 lb [127.01 kg] (12/29/2023 10:05) Pulse Oximetry 96% (12/29/2023 10:05) EXAM Behavior: pleasant and cooperative; good eye contact Speech: clear, understandable Thought process: logical UDS No data available for: OPIATES SCREEN COCAINE SCREEN BENZODIAZEPINE SCREEN ([facility]) CANNABINOIDS SCREEN METHADONE SCREEN OXYCODONE SCREEN ETHANOL PROBLEM LIST === Active problems - Computerized Problem List is the source for the followin. CLBP - chronic low back pain 2. Cervical radiculopathy 3. HTN - Hypertension ([facility] [id number]) 4. Diabetes Mellitus Type 2 ([facility] [id number]) 5. Allergic Rhinitis ([facility] [id number]) 6. Vitamin D Deficiency ([facility] [id number]) 7. Hyperlipidemia ([facility] [id number]) 8. Fatty liver 9. Fatigue 10. Edema of lower leg 11. Back pain 12. History of cholecystectomy 13. H/O: osteoarthritis 14. Depression 15. Onychomycosis of toenails 16. Knee pain (SNOMED CT [id number]) 17. Osteoarthritis 18. Foot pain 19. Diabetic neuropathy 20. Erectile dysfunction 21. Type 2 diabetes mellitus 22. Flat Feet * 23. Depressive disorder (SNOMED CT 01107514) 24. History of male erectile disorder (SNOMED CT [id number]) 25. Disorder of urethra 26. PCP: Gm: [phone] 27. Knee: arthralgia 28. Ankle: arthralgia 29. Appendectomy When Done for Indicated Purpose at Time of Other Major Procedur 30. Hearing loss 31. Tinnitus 32. Arthritis, Traumatic, Primary === MEDICATIONS === Active Outpatient Medications (including Supplies): Active Outpatient Medications Status 1) ACETAMINOPHEN 500MG TAB TAKE TWO TABLETS BY MOUTH ACTIVE THREE TIMES DAILY NEEDED FOR PAIN 2) ATORVASTATIN CALCIUM 80MG TAB TAKE ONE TABLET BY ACTIVE MOUTH AT BEDTIME FOR HIGH CHOLESTEROL 3) CHOLECALCIF 50MCG (D3-2,000UNIT) TAB TAKE ONE TABLET ACTIVE BY MOUTH ONCE DAILY FOR VITAMIN SUPPLEMENTATION 4) DICLOFENAC NA 1% TOP GEL APPLY 4 GRAMS TOPICALLY ACTIVE TWICE DAILY NEEDED FOR OSTEOARTHRITIS - USE DOSING CARD PROVIDED IN BOX 5) EMPAGLIFLOZIN 25MG TAB TAKE ONE TABLET BY MOUTH ONCE ACTIVE DAILY 6) GABAPENTIN 100MG CAP TAKE ONE CAPSULE BY MOUTH EVERY ACTIVE MORNING AND TAKE TWO CAPSULES AT BEDTIME FOR NERVE PAIN 7) GLUCOSE SENSOR DEXCOM G7 USE 1 SENSOR DIRECTED ACTIVE EVERY 10 DAYS 8) INSULIN,GLARGINE-YFGN 100UNIT/ML PEN 3ML INJECT 40 ACTIVE UNITS SUBCUTANEOUSLY TWICE DAILY FOR DIABETES 9) LIDOCAINE 5% PATCH APPLY 1 PATCH TOPICALLY ONCE DAILY ACTIVE NEEDED (LEAVE PATCH ON FOR 12 HOURS, THEN REMOVE PATCH) A little 10) LISINOPRIL 5MG TAB TAKE ONE TABLET BY MOUTH ONCE ACTIVE DAILY TO CONTROL BLOOD PRESSURE 11) METFORMIN HCL 750MG 24HR SA TAB TAKE ONE TABLET BY ACTIVE MOUTH ONCE DAILY 12) SEMAGLUTIDE 1MG/0.75ML INJ PEN 3ML INJECT 1MG ACTIVE SUBCUTANEOUSLY ONCE A WEEK FOR TYPE 2 DIABETES MELLITUS SUICIDE SCREEN C-SSRS Screening [place]-Suicide Severity Rating Scale (C-SSRS Screener) 1. Over the past month, have you wished you were or wished you could go to sleep and not wake up? No 2. Over the past month, have you had any actual thoughts of killing yourself? No 3. Over the past month, have you been thinking about how you might do this? Response not required due to responses to other questions. 4. Over the past month, have you had these thoughts and had some intention of acting on them? Response not required due to responses to other questions. 5. Over the past month, have you started to work out or worked out the details of how to kill yourself? Response not required due to responses to other questions. 6. If yes, at any time in the past month did you intend to carry out this plan? Response not required due to responses to other questions. 7. In your lifetime, have you ever done anything, started to do anything, or prepared to do anything to end your life (for example, collected pills, obtained a gun, gave away valuables, went to the roof but didn't jump)? No 8. If YES, was this within the past 3 months? Response not required due to responses to other questions. /lora/ SABA MORA MD PHYSICIAN Signed: 02/20/2024 16:33 [facility]
--- OUTSIDE RECORDS SUMMARY | 2024-09-30 08:38 | XMS_ITS | Encounter Summary ---
Author Name [facility] [place] Address [address] [place] [address] Care Team Providers Care Surgical Nurse Practitioner Name Role Phone CHANI RHODES Primary Care [...] [facility] February 03, 2022 [id number] EMERITA BAUTISTA PATIENT [facility] MEDICAID MEDICAID MEDIC AID Oct 06, 2013 MEDICAI D [id number] EMERITA BAUTISTA PATIENT MEDICARE (WNR) MEDICARE (M) PART A Mar 06, 2015 PART A [id number] EMERITA BAUTISTA PATIENT MEDICARE (WNR) MEDICARE (M) PART B Mar 06, 2015 PART B [id number] EMERITA BAUTISTA PATIENT MEDICARE (WNR) MEDICARE (M) PART B Mar 06, 2015 PART B [id number] EMERITA BAUTISTA PATIENT MEDICARE (WNR) MEDICARE (M) PART A Mar 06, 2015 PART A [id number] EMERITA BAUTISTA PATIENT MEDICARE (WNR) MEDICARE (M) PART B Mar 06, 2015 PART B [id number] EMERITA BAUTISTA PATIENT MEDICARE (WNR) MEDICARE (M) PART B Mar 06, 2015 PART B [id number] [phone] EMERITA BAUTISTA PATIENT MEDICARE (WNR) MEDICARE (M) PART A Mar 06, 2015 PART A [id number] EMERITA BAUTISTA PATIENT Selected Encounter This section includes the information on record at [place] for the Encounter. Date/Time Encounter Type Encounter Description Reason Pro vider Source February 09, 2024 09:20 AM Outpatient Encounter PAIN CLINIC IHE Encounter Template Text not used by [place] Plan of Treatment: Future Appointments (+ 6 months) and Future Tests (+/- 45 days) The Plan of Treatment section includes future care activities for the patient [facility] [place] [facility] This section includes future appointments and future orders which are active, pending or scheduled. Future Appointments This section includes appointments that were scheduled to occur 6 months from the date of the Encounter, up to a maximum of 20 appointments. The data comes from all [place] treatment facilities. Appointment Date/Time Appointment Type Appointme nt Facility Name February 10, 2024 02:00 PM AMBULATORY - MEDICINE [place] [facility] Mar 08, 2024 09:00 AM AMBULATORY - MEDICINE [facility] Mar 08, 2024 11:30 AM AMBULATORY - NONE [place] [facility] [place] [facility] Mar 22, 2024 02:15 PM AMBULATORY - MEDICINE [place] [facility] [place] [facility] Apr 06, 2024 03:00 PM AMBULATORY - MEDICINE [place] [facility] [place] [place] [facility] Apr 14, 2024 09:30 AM AMBULATORY - MEDICINE [place] [place] [facility] Apr 19, 2024 03:00 PM [facility] Apr 20, 2024 09:00 AM AMBULATORY - MEDICINE [place] [facility] Apr 28, 2024 03:00 PM AMBULATORY - MEDICINE [place] [facility] [place] [place] [facility] May 21, 2024 09:45 AM AMBULATORY - MEDICINE [place] [facility] Jun 10, 2024 09:30 AM AMBULATORY - MEDICINE [place] [place] [facility] Jun 23, 2024 08:00 AM AMBULATORY - REHAB MEDICIN [facility] Jun 28, 2024 07:30 AM AMBULATORY - REHAB MEDICIN [facility] Jul 01, 2024 02:45 PM AMBULATORY - MEDICINE [place] [facility] Jul 06, 2024 08:00 AM AMBULATORY - MEDICINE [facility] Jul 13, 2024 10:00 [facility] Jul 28, 2024 10:00 AM AMBULATORY - REHAB MEDICIN [facility] [place] Aug 05, 2024 09:30 AM [facility] Lab Results: +/- 30 days of the encounter This section includes the Chemistry and Hematology Lab Results on record with [place] for the patient. Radiology Reports and Pathology Reports are provided separately, in subsequent sections. Lab Results This section contains the Chemistry/Hematology Results that were resulted 30 days before or 30 daysafter the date of the Encounter. Date/Time Source Result Type Result - Unit Interpretation Reference Range Comment Mar 08, 2024 09:42 AM [facility] LIPID PANEL FASTING Specimen Type: SERUM No comment entered. Ordering Provider: VENKATA MARES Report Released Date/Time: Nov 28, 2023 09:56 AM Reporting Lab: [facility] [address] [address] Performing Lab: [facility] [address] [address] CHOLESTEROL 126 mg/dL TRIGLYCERIDE 197 mg/dL H 0-150 LDL calculated 57 mg/dL 0-129 CHOL/HDL 4.2 HDL CHOLESTEROL 30 mg/dL L 40-60 Mar 08, 2024 09:42 AM [place] BASIC METABOLIC PANEL (fasting) Specime n Type: SERUM No comment entered. Ordering Provider: VENKATA MARES Report Released Date/Time: Nov 28, 2023 09:56 AM Reporting Lab: [address] [address] Performing Lab: [facility] [address] [address] UREA NITROGEN 14 mg/dL 7-25 GLUCOSE 230 mg/dL H 65-100 SODIUM 139 mmol/L 135-145 POTASSIUM 4.2 mmol/L 3.5-5.0 CHLORIDE 108 mmol/L 100-110 CO2 22 meq/L 20-30 CREATININE, Serum 1.22 mg/dL 0.50-1.40 eGFR(CKD-EPI 2020) 68 mL/min >60 Mar 08, 2024 09:42 AM [facility] HEMOGLOBIN A1C PANEL Specimen Type: BLOOD Comment: [...] Nov 28, 2023 09:56 AM Reporting Lab: [address] [address] Performing Lab: [address] [address] HEMOGLOBIN A1C 7.4 H 4.0-5.6 Mar 08, 2024 09:42 AM [facility] LIVER FUNCTION Specimen Type: SERUM No comment entered. Ordering Provider: VENKATA MARES Report Released Date/Time: Nov 28, 2023 09:56 AM Reporting Lab: [address] [address] Performing Lab: [address] [address] PROTEIN,TOTAL 7.7 g/dL 6.0-8.3 ALBUMIN 4.3 g/dL 3.5-5.0 ALKALINE PHOSPHATASE 90 U/L 40-150 AST 26 U/L 5-34 ALT 46 U/L BILIRUBIN, TOTAL 1.2 mg/dL 0.2-1.2 BILIRUBIN, DIRECT 0.4 mg/dL 0-0.5 Mar 08, 2024 09:42 AM [facility] CBC Specimen Type: BLOOD No comment entered. Ordering Provider: VENKATA MARES Report Released Date/Time: Nov 28, 2023 09:56 AM Reporting Lab: [facility] [address] [facility] [address] Performing Lab: [facility] [address] [facility] [address] WBC 6.55 10*3/uL 4.50-11.00 RBC 5.57 10*6/uL 4.23-5.66 HGB 17.0 g/dL 12.8-17 HCT 50.1 39.2-50.4 MCV 89.9 fL 82-99 MCHC 33.9 g/dL 30.8-35.1 PLT 123 10*3/uL L 140-360 RDW-CV 12.9 12.0-16.0 MCH 30.5 pg 26.2-32.6 Mar 08, 2024 09:42 AM [place] VITAMIN D 25-OH (Therapy monitor) Speci men [...] For additional information, please refer to http://education .[email or web address].Easel Learn/faq/SPN334 (This link is being provided for informational/ educational purposes only.) This test was developed and its analytical performance characteristics have been determined by [facility] [place]. It has not been cleared or approved by the U.S. Food and Drug Administration. This assay has been validated pursuant to the CLIA regulations and is used for clinical purposes. This test was developed and its analytical performance characteristics have been determined by [facility] [place]. It has not been cleared or approved by the U.S. Food and Drug Administration. This assay has been validated pursuant to the CLIA regulations and is used for clinical purposes. Test Performed by [facility], [facility], [address] [place] [id number] Mohit Cazares M.D., Ph.D., Director of Laboratories , [facility] [id number] TEST PERFORMED AT: , Ordering Provider: VENKATA MARES Report Released Date/Time: Mar 08, 2024 09:16 AM Reporting Lab: [facility] [address] [facility] [address] Performing Lab: [facility] [address] [facility], [address] [place] [address] VITAMIN D, 25-OH, TOTAL 19 ng/mL L 30-100 VITAMIN D, 25-OH, D3 19 ng/mL VITAMIN D, 25-OH, D2 <4 ng/mL Mar 08, 2024 09:42 AM [facility] AMYLASE Specimen Type: SERUM No comment entered. Ordering Provider: VENKATA MARES Report Released Date/Time: Mar 08, 2024 09:34 AM Reporting Lab: [facility] [address] [facility] [address] Performing Lab: [facility] [address] [facility] [address] AMYLASE 67 U/L 25-125 Mar 08, 2024 09:42 AM [place] LIPASE Specimen Type: SERUM No comment entered. Ordering Provider: VENKATA MARES Report Released Date/Time: Mar 08, 2024 09:34 AM Reporting Lab: [facility] [address] [facility] [address] Performing Lab: [facility] [address] [facility] [address] LIPASE 53 U/L 8-82 Social History: Smoking Status (Most current) and Tobacco Use (All prior to encounter date) This section includes the most current, and the historical, smoking and tobacco- related health factors from the [place] facility where the Encounter took place. Current Smoking Status This section includes the most current smoking, or tobacco-related health factor, from the [place] facility where the Encounter took place. Date/Time Current Smoking Status Comment Ana bianchi Mar 11, 2023 08:30 AM VA-TOBACCO FORMER USER [facility] Tobacco Use History This section includes a history of the smoking, or tobacco-related health factors, that were collected on or before the date of the Encounter. The data comes from the [place] facility where the Encounter took place. Date/Time Smoking Status/Tobacco Use Comment F acility Mar 11, 2023 08:30 AM VA-TOBACCO QUIT 15 YRS OR MORE [facility] Dec 27, 2020 02:00 PM VA-TOBACCO FORMER USER [facility] Dec 27, 2020 02:00 PM [place]-TOBACCO QUIT 15 YRS OR MORE [facility] Advance Directives: All historical and current Section Date Range: From patient's date of to the date document was created. This section includes ALL of a patient's completed or amended [place] Advance and Rescinded Directives. The entries below indicate that a directive exists for the patient, but an actual copy is not included with this document. The data comes from all [place] facilities. Date Advance Directives Provider Source May 23, 2011 ADVANCE DIRECTIVE JUD BROOSK Radiology Reports: +/- 30 days of the [...] the Encounter. The data comes from all [place] treatment facilities. Date/Time Radiology Report Provider Source Mar 08, 2024 11:29 AM ABDOMEN (2 VIEWS): EMERITA BAUTISTA [id number] -1965 M Ex Date: MAR 08, 2024@11:29 Req Phys: VENKATA MARES Pat Loc: CWM/SO/PACT EIGHT WH (Req'g Lo Img Loc: [facility]/BUILDING 1 Service: Unknown [facility] , (Case [id number] COMPLETE) ABDOMEN (2 VIEWS) (RAD Detailed) CPT:73988 Reason for Study: abdominal discomfort Clinical History: nausea, vomiting Report Status: Verified Date Reported: MAR 08, 2024 Date Verified: MAR 08, 2024 Academic Program Specialist E-Sig:/ES/TERESA BLOUNT JR Report: Study: KUB supine [...] Primary Interpreting Staff: TERESA BLOUNT JR, Radiologist (Academic Program Specialist) /TERESA AGUILAR JR [facility] Mar 08, 2024 11:07 AM ABDOMINAL ULTRASOUND: EMERITA BAUTISTA Marixa [id number] -1965 M Exm Date: MAR 08, 2024@11:07 Req Phys: STELIDIAA,VENKATA F Pat Loc: CWM/SO/PACT EIGHT WH (Req'g Lo Img Loc: ULTRASOUND Service: Unknown [facility] , (Case 32 COMPLETE) ULTRASOUND ABDOMEN (US Detailed) CPT:59386 Reason for Study: abdominal discomfort Clinical History: nausea, vomiting Report Status: Verified Date Reported: MAR 08, 2024 Date Verified: MAR 08, 2024 Academic Program Specialist E-Sig:/ES/TERESA BLOUNT JR Report: Study: Abdomen ultrasound. [...] Primary Interpreting Staff: TERESA BLOUNT JR, Radiologist (Academic Program Specialist) /TERESA AGUILAR JR [facility] Encounter Notes: All associated encounter notes This section contains the clinical notes associated to the Encounter. Date/Time Encounter Note(s) Provider Source February 09, 2024 09:20 AM TELEPHONE ENCOUNTE R NOTE: LOCAL TITLE: TELEPHONE NOTE/SPECIALTY CLINIC STANDARD TITLE: TELEPHONE ENCOUNTER NOTE DATE OF NOTE: FEBRUARY 09, 2024@09:20 ENTRY DATE: FEBRUARY 09, 2024@09:20:33 AUTHOR: TRACE CHAPARRO COSIGNER: URGENCY: STATUS: COMPLETED Called and spoke with pt to reminded them that they have a FTF appt with the Pain clinic on 02/10/2024 at 1400. Location was confirmed. /lora/ TRACE CHAPARRO Signed: 02/09/2024 09:20 TRACE CHAPARRO [facility]
--- OUTSIDE RECORDS SUMMARY | 2024-09-30 08:38 | XMS_ITS | Encounter Summary ---
Author Name Department [place] Address [address] [place] [address] Care Team Providers Care Beer Brewer Name Role Phone CHANI RHODES Primary Care [...] [facility]ANCE [facility] February 03, 2022 [id number] EMERITA BAUTISTA PATIENT [facility] MEDICAID MEDICAID MEDIC AID Oct 06, 2013 MEDICAI D [id number] EMERITA BAUTISTA PATIENT MEDICARE (WNR) MEDICARE (M) PART A Mar 06, 2015 PART A [id number] [phone] EMERITA BAUTISTA PATIENT MEDICARE (WNR) MEDICARE (M) PART B Mar 06, 2015 PART B [id number] [phone] EMERITA BAUTISTA PATIENT MEDICARE (WNR) MEDICARE (M) PART B Mar 06, 2015 PART B [id number] EMERITA BAUTISTA PATIENT MEDICARE (WNR) MEDICARE (M) PART A Mar 06, 2015 PART A [id number] EMERITA BAUTISTA PATIENT MEDICARE (WNR) MEDICARE (M) PART B Mar 06, 2015 PART B [id number] EMERITA BAUTISTA PATIENT MEDICARE (WNR) MEDICARE (M) PART B Mar 06, 2015 PART B [id number] [phone] EMERITA BAUTISTA PATIENT MEDICARE (WNR) MEDICARE (M) PART A Mar 06, 2015 PART A [id number] EMERITA BAUTISTA PATIENT Selected Encounter This section includes the information on record at [place] for the Encounter. Date/Time Encounter Type Encounter Description Reason Pro vider Source Dec 29, 2023 10:19 AM Outpatient Encounter PRIMARY CARE/MEDICINE IHE Encounter Template Text not used by [place] Plan of Treatment: Future Appointments (+ 6 months) and Future Tests (+/- 45 days) The Plan of Treatment section includes future care activities for the patient from all [place] treatmentfacilities. This section includes future appointments and future orders which are active, pending or scheduled. Future Appointments This section includes appointments that were scheduled to occur 6 months from the date of the Encounter, up to a maximum of 20 appointments. The data comes from all [place] treatment facilities. Appointment Date/Time Appointment Type Appointme nt Facility Name February 10, 2024 02:00 PM AMBULATORY - MEDICINE [place] [place] [facility] Mar 08, 2024 09:00 AM [facility] Mar 08, 2024 11:30 AM AMBULATORY - NONE [place] [facility] [place] [facility] Mar 22, 2024 02:15 PM AMBULATORY - MEDICINE [place] [facility] Apr 06, 2024 03:00 PM AMBULATORY - MEDICINE [place] [place] [facility] Apr 14, 2024 09:30 AM AMBULATORY - MEDICINE [place] [place] [facility] Apr 19, 2024 03:00 PM [facility] Apr 20, 2024 09:00 AM AMBULATORY - MEDICINE [place] [place] [facility] Apr 28, 2024 03:00 PM AMBULATORY - MEDICINE [place] [facility] [place] [facility] May 21, 2024 09:45 AM AMBULATORY - MEDICINE [facility] [place] [facility] Jun 10, 2024 09:30 AM AMBULATORY - MEDICINE [place] [place] [facility] Jun 23, 2024 08:00 AM AMBULATORY - REHAB [facility] Jun 28, 2024 07:30 [facility] Social History: Smoking Status (Most current) and Tobacco Use (All prior to encounter date) This section includes the most current, and the historical, smoking and tobacco- related health factors from the [place] facility where the Encounter took place. Current Smoking Status This section includes the most current smoking, or tobacco-related health factor, from the [place] facility where the Encounter took place. Date/Time Current Smoking Status Comment Facil ity Mar 11, 2023 08:30 AM [facility]CO [facility] Tobacco Use History This section includes a history of the smoking, or tobacco-related health factors, that were collected on or before the date of the Encounter. The data comes from the [place] facility where the Encounter took place. Date/Time Smoking Status/Tobacco Use Comment F acility Mar 11, 2023 08:30 AM VA-TOBACCO QUIT 15 YRS OR MORE [facility] Dec 27, 2020 02:00 PM VA-TOBACCO FORMER USER [place] [facility] [place] [facility] Dec 27, 2020 02:00 PM CO-TOBACCO QUIT 15 YRS OR MORE [facility] Advance Directives: All historical and current Section Date Range: From patient's date of to the date document was created. This section includes ALL of a patient's completed or amended [place] Advance and Rescinded Directives. The entries below indicate that a directive exists for the patient, but an actual copy is not included with this document. The data comes from all [place] facilities. Date Advance Directives Provider Source May [...] the Encounter. The data comes from all [place] treatment facilities. Date/Time Radiology Report Provider Source Dec 25, 2023 07:00 AM OUTSIDE MRI CERVIC AL SPINE: EMERITA BAUTISTA [id number] -1965 M Exm Date: DEC 25, 2023@07:00 Req Phys: CHANI RHODES Loc: CWM/SO/SICK CALL ENROLLMENT COORDINATOR (Req'g Loc Img Loc: OUTSIDE GENERAL RADIOLOGY Service: Unknown (Case [id number] COMPLETE) OUTSIDE MRI CERVICAL SPINE (RAD Detailed) CPT:94434 Reason for Study: acute on chronic neck, mid and low back pain with radiation LLE Clinical History: no hx trauma Report Status: Electronically Filed Date Reported: DEC 25, 2023 Report: Community care exam; see CPRS/JLV for outside radiology report/results Impression: Community care exam; see CPRS/JLV for outside radiology report/results Primary Diagnostic Code: VERIFIED BY: / *ELECTRONICALLY FILED* [place] [facility] [place] [facility] Encounter Notes: All associated encounter notes This section contains the clinical notes associated to the Encounter. Date/Time Encounter Note(s) Provider Source Dec 29, 2023 10:19 AM PREVENTIVE MEDICIN E NURSING NOTE: LOCAL TITLE: CLINICAL REMINDERS/NURSING STANDARD TITLE: PREVENTIVE MEDICINE NURSING NOTE DATE OF NOTE: DEC 29, 2023@10:19 ENTRY DATE: DEC 29, 2023@10:20:03 AUTHOR: SHAKEEL STEWART EXP COSIGNER: URGENCY: STATUS: COMPLETED Influenza Immunization: The patient declines to receive the recommended dose of seasonal influenza vaccine. Immunization: INFLUENZA, UNSPECIFIED FORMULATION Refusal Reason: PATIENT DECISION Patient refuses all immunization(s) in the FLU group Date Documented: 12/29/23 10:20 /lora/ PEDRO STEWART LPN LPN Signed: 12/29/2023 10:20 PEDRO STEWART [place]
--- OUTSIDE RECORDS SUMMARY | 2024-09-30 08:38 | XMS_ITS | Encounter Summary ---
Author Name [place] Address [address] [place] [address] Care Team Providers Care Insole Tack Puller Hand Name Role Phone CHANI RHODES Primary Care [...] [facility] February 03, 2022 [id number] EMERITA BAUTISTA PATIENT [facility] MEDICAID MEDICAID MEDIC AID Oct 06, 2013 MEDICAI D [id number] EMERITA BAUTISTA PATIENT MEDICARE (WNR) MEDICARE (M) PART A Mar 06, 2015 PART A [id number] EMERITA BAUTISTA PATIENT MEDICARE (WNR) MEDICARE (M) PART B Mar 06, 2015 PART B [id number] [phone] EMERITA BAUTISTA PATIENT MEDICARE (WNR) MEDICARE (M) PART B Mar 06, 2015 PART B [id number] [phone] EMERITA BAUTISTA PATIENT MEDICARE (WNR) MEDICARE (M) PART A Mar 06, 2015 PART A [id number] EMERITA BAUTISTA PATIENT MEDICARE (WNR) MEDICARE (M) PART B Mar 06, 2015 PART B [id number] [phone] EMERITA BAUTISTA PATIENT MEDICARE (WNR) MEDICARE (M) PART B Mar 06, 2015 PART B [id number] EMERITA BAUTISTA PATIENT MEDICARE (WNR) MEDICARE (M) PART A Mar 06, 2015 PART A [id number] [phone] EMERITA BAUTISTA PATIENT Selected Encounter This section includes the information on record at [place] for the Encounter. Date/Time Encounter Type Encounter Description Reason Pro vider Source March 04, 2024 01:14 PM Outpatient Encounter PRIMARY CARE/MEDICINE IHE Encounter Template Text not used by [place] Plan of Treatment: Future Appointments (+ 6 months) and Future Tests (+/- 45 days) The Plan of Treatment section includes future care activities for the patient from all [place] [facility] This section includes future appointments and future [...] AMBULATORY - NONE [facility] [place] [facility] Mar 22, 2024 02:15 PM AMBULATORY - MEDICINE [facility] [place] [facility] Apr 06, 2024 03:00 PM AMBULATORY - MEDICINE [facility] [place] [facility] Apr 14, 2024 09:30 AM AMBULATORY - MEDICINE [place] [facility] [place] [facility] Apr 19, 2024 03:00 PM AMBULATORY - MEDICINE [facility] Apr 20, 2024 09:00 AM AMBULATORY - MEDICINE [facility] [place] [facility] Apr 28, 2024 03:00 PM AMBULATORY - MEDICINE [facility] [place] [facility] May 21, 2024 09:45 AM AMBULATORY - MEDICINE [facility] [place] [facility] Jun 10, 2024 09:30 AM AMBULATORY - MEDICINE [facility] [place] [facility] Jun 23, 2024 08:00 AM [facility] Jun 28, 2024 07:30 AM AMBULATORY - REHAB [facility] Jul 01, 2024 02:45 PM AMBULATORY - MEDICINE [facility] Jul 06, 2024 08:00 AM AMBULATORY - MEDICINE [facility] Jul 13, 2024 10:00 AM AMBULATORY - REHAB [facility] Jul 28, 2024 10:00 AM AMBULATORY - REHAB MEDICIN [facility] Aug 05, 2024 09:30 AM AMBULATORY - MEDICINE [facility] Aug 19, 2024 09:00 AM [facility] Aug 24, 2024 11:00 AM AMBULATORY - PSYCHIATRY [place] [facility] Aug 24, 2024 03:00 PM AMBULATORY - REHAB [facility] Lab Results: +/- 30 days [...] Range Comment Mar 08, 2024 09:42 AM [place] LIPID PANEL FASTING Specimen Type: SERUM No comment entered. Ordering Provider: VENKATA MARES Report Released Date/Time: Nov 28, 2023 09:56 AM Reporting [facility] [address] [address] Performing Lab: [address] [address] CHOLESTEROL 126 mg/dL TRIGLYCERIDE 197 mg/dL H 0-150 LDL calculated 57 mg/dL 0-129 CHOL/HDL 4.2 HDL CHOLESTEROL 30 mg/dL L 40-60 Mar 08, 2024 09:42 AM [place] BASIC METABOLIC PANEL (fasting) Specime n Type: SERUM No comment entered. Ordering Provider: VENKATA MARES Report Released Date/Time: Nov 28, 2023 09:56 AM Reporting Lab: [address] [address] Performing Lab: [address] [address] UREA NITROGEN 14 mg/dL 7-25 GLUCOSE 230 mg/dL H 65-100 SODIUM 139 mmol/L 135-145 POTASSIUM 4.2 mmol/L 3.5-5.0 CHLORIDE 108 mmol/L 100-110 CO2 22 meq/L 20-30 CREATININE, Serum 1.22 mg/dL 0.50-1.40 eGFR(CKD-EPI 2020) 68 mL/min >60 Mar 08, 2024 09:42 AM [place] HEMOGLOBIN A1C PANEL Specimen Type: BLOOD Comment: [...] Nov 28, 2023 09:56 AM Reporting Lab: [address] [address] Performing Lab: [address] [address] HEMOGLOBIN A1C 7.4 H 4.0-5.6 Mar 08, 2024 09:42 AM [place] LIVER FUNCTION Specimen Type: SERUM No comment entered. Ordering Provider: VENKATA MARES Report Released Date/Time: Nov 28, 2023 09:56 AM Reporting Lab: [address] [address] Performing Lab: [address] [address] PROTEIN,TOTAL 7.7 g/dL 6.0-8.3 ALBUMIN 4.3 g/dL 3.5-5.0 ALKALINE PHOSPHATASE 90 U/L 40-150 AST 26 U/L 5-34 ALT 46 U/L BILIRUBIN, TOTAL 1.2 mg/dL 0.2-1.2 BILIRUBIN, DIRECT 0.4 mg/dL 0-0.5 Mar 08, 2024 09:42 AM [place] CBC Specimen Type: BLOOD No comment entered. Ordering Provider: VENKATA MARES Report Released Date/Time: Nov 28, 2023 09:56 AM Reporting Lab: [facility] [address] [facility] [facility] [address] Performing Lab: [facility] [address] [facility] [address] WBC 6.55 10*3/uL 4.50-11.00 RBC 5.57 10*6/uL 4.23-5.66 HGB 17.0 g/dL 12.8-17 HCT 50.1 39.2-50.4 MCV 89.9 fL 82-99 MCHC 33.9 g/dL 30.8-35.1 PLT 123 10*3/uL L 140-360 RDW-CV 12.9 12.0-16.0 MCH 30.5 pg 26.2-32.6 Mar 08, 2024 09:42 AM [place] VITAMIN D 25-OH (Therapy monitor) Speci men [...] For additional information, please refer to http://education .[employer]/faq/CFE936 (This link is being provided for informational/ educational purposes only.) This test was developed and its analytical performance characteristics have been determined by [employer] [place], [place]. It has not been cleared or approved by the U.S. Food and Drug Administration. This assay has been validated pursuant to the CLIA regulations and is used for clinical purposes. This test was developed and its analytical performance characteristics have been determined by [employer] [place]. It has not been cleared or approved by the U.S. Food and Drug Administration. This assay has been validated pursuant to the CLIA regulations and is used for clinical purposes. Test Performed by [facility], [facility], [address] [place] [address] Mohit Cazares M.D., Ph.D., Director of Laboratories , CLIA [id number] TEST PERFORMED AT: , Ordering Provider: VENKATA MARES Report Released Date/Time: Mar 08, 2024 09:16 AM Reporting Lab: [facility] [address] [facility] [address] Performing Lab: [facility] [address] [address] VITAMIN D, 25-OH, TOTAL 19 ng/mL L 30-100 VITAMIN D, 25-OH, D3 19 ng/mL VITAMIN D, 25-OH, D2 <4 ng/mL Mar 08, 2024 09:42 AM [place] AMYLASE Specimen Type: SERUM No comment entered. Ordering Provider: VENKATA MARES Report Released Date/Time: Mar 08, 2024 09:34 AM Reporting Lab: [address] [address] Performing Lab: [address] [address] AMYLASE 67 U/L 25-125 Mar 08, 2024 09:42 AM [place] LIPASE Specimen Type: SERUM No comment entered. Ordering Provider: VENKATA MARES Report Released Date/Time: Mar 08, 2024 09:34 AM Reporting Lab: [facility] [address] [facility] [address] Performing Lab: [address] [address] LIPASE 53 U/L 8-82 Social History: Smoking Status (Most current) and Tobacco Use (All prior to encounter date) This section includes the most current, and the historical, smoking and tobacco- related health factors from the [facility] where the Encounter took place. Current Smoking Status This section includes the most current smoking, or tobacco-related health factor, from the [place] facility where the Encounter took place. Date/Time Current Smoking Status Comment Facil ity Mar 11, 2023 08:30 AM [facility]ACCO [facility] [place] [facility] Tobacco Use History This section includes a history of the smoking, or tobacco-related health factors, that were collected on or before the date of the Encounter. The data comes from the [place] facility where the Encounter took place. Date/Time Smoking Status/Tobacco Use Comment F acility Mar 11, 2023 08:30 AM VA-TOBACCO QUIT 15 YRS OR MORE [place] [facility] [place] [facility] Dec 27, 2020 02:00 PM VA-TOBACCO FORMER USER [place] [facility] [facility] Dec 27, 2020 02:00 PM VA-TOBACCO QUIT [facility]RS OR [facility] [place] [facility] Advance Directives: All historical and current [...] 11:29 AM ABDOMEN (2 VIEWS): EMERITA BAUTISTA Marixa [id number] -1965 M Ex Date: MAR 08, 2024@11:29 Req Phys: VENKATA MARES Pat Loc: CWM/SO/PACT EIGHT WH (Req'g Lo Img Loc: [facility] 1 Service[facility] , (Case 37 COMPLETE) ABDOMEN (2 VIEWS) (RAD Detailed) CPT:46612 Reason for Study: abdominal discomfort Clinical History: nausea, vomiting Report Status: Verified Date Reported: MAR 08, 2024 Date Verified: MAR 08, 2024 Client Program Manager E-Sig:/ES/TERESA BLOUNT JR Report: Study: KUB supine [...] Primary Interpreting Staff: TERESA BLOUNT JR, Radiologist (Client Program Manager) /EAD TERESA BLOUNT JR [facility] Mar 08, 2024 11:07 AM ABDOMINAL ULTRASOUND: EMERITA BAUTISTA [id number] -1965 M Exm Date: MAR 08, 2024@11:07 Req Phys: VENKATA MARES Loc: CWM/SO/PACT EIGHT WH (Req'g Lo Img Loc: ULTRASOUND Service: Unknown [facility] , (Case 32 COMPLETE) ULTRASOUND ABDOMEN (US Detailed) CPT:19979 Reason for Study: abdominal discomfort Clinical History: nausea, vomiting Report Status: Verified Date Reported: MAR 08, 2024 Date Verified: MAR 08, 2024 Client Program Manager E-Sig:/ES/TERESA BLOUNT JR Report: Study: Abdomen ultrasound. [...] Primary Interpreting Staff: TERESA BLOUNT JR, Radiologist (Client Program Manager) /TERESA AGUILAR JR [facility] Encounter Notes: All associated encounter notes This section contains the clinical notes associated to the Encounter. Date/Time Encounter Note(s) Provider Source March 04, 2024 01:14 PM ADMINISTRATIVE NOT E: LOCAL TITLE: ADMINISTRATIVE NOTE STANDARD TITLE: ADMINISTRATIVE NOTE DATE OF NOTE: MARCH 04, 2024@13:14 ENTRY DATE: MARCH 04, 2024@13:14:59 AUTHOR: JONNIE VIZCAINO COSIGNER: URGENCY: STATUS: COMPLETED THIS POLICE SERGEANT PRECINCT CALLED TO REMIND OF F2F APPT. WITH CWM/SO/PACT EIGHT PROVIDER ON 03/08/2024 AT 0900 AND TO COMPLETE FASTING LABS PRIOR TO APPT DATE. NO ANSWER, LEFT MESSAGE FOR . /lora/ CLAUDE VIZCAINO ADVANCED COMMUNITY DEVELOPMENT WORKER Signed: 03/04/2024 13:17 CLAUDE VIZCAINO [place]
--- OUTSIDE RECORDS SUMMARY | 2024-09-30 08:39 | XMS_ITS | Encounter Summary ---
Author Name [place] Address [address] [place] [address] Care Team Providers Care Vp Legal Affairs Name Role Phone CHANI RHODES Primary Care [...] [facility] February 03, 2022 [id number] EMERITA BAUTISTA PATIENT [facility] MEDICAID MEDICAID MEDIC AID Oct 06, 2013 MEDICAI D [id number] EMERITA BAUTISTA PATIENT MEDICARE (WNR) MEDICARE (M) PART A Mar 06, 2015 PART A [id number] EMERITA BAUTISTA PATIENT MEDICARE (WNR) MEDICARE (M) PART B Mar 06, 2015 PART B [id number] EMERITA BAUTISTA PATIENT MEDICARE (WNR) MEDICARE (M) PART B Mar 06, 2015 PART B [id number] EMERITA BAUTISTA PATIENT MEDICARE (WNR) MEDICARE (M) PART A Mar 06, 2015 PART A [id number] EMERITA BAUTISTA PATIENT MEDICARE (WNR) MEDICARE (M) PART B Mar 06, 2015 PART B [id number] EMERITA BAUTISTA PATIENT MEDICARE (WNR) MEDICARE (M) PART B Mar 06, 2015 PART B [id number] EMERITA BAUTISTA PATIENT MEDICARE (WNR) MEDICARE (M) PART A Mar 06, 2015 PART A [id number] EMERITA BAUTISTA PATIENT Selected Encounter This section includes the information on record at CT for the Encounter. Date/Time Encounter Type Encounter Description Reason Pro vider Source Mar 15, 2024 02:49 PM Outpatient Encounter PRIMARY CARE/MEDICINE IHE Encounter Template Text not used by CT Plan of Treatment: Future Appointments (+ 6 months) and Future Tests (+/- 45 days) The Plan of Treatment section includes future care activities for the patient from all [facility]. This section includes future appointments and [...] 22, 2024 02:15 PM AMBULATORY - MEDICINE [facility] C [place] [place] [facility] Apr 06, 2024 03:00 PM AMBULATORY - MEDICINE [facility] C [place] [place] [facility] Apr 14, 2024 09:30 AM AMBULATORY - MEDICINE [facility] C [place] [place] [facility] Apr 19, 2024 03:00 PM AMBULATORY - MEDICINE [facility] Apr 20, 2024 09:00 AM AMBULATORY - MEDICINE CT C [place] [place] [facility] Apr 28, 2024 03:00 PM AMBULATORY - MEDICINE [facility] [place] [facility] May 21, 2024 09:45 AM AMBULATORY - MEDICINE [facility] C [facility] [place] [facility] Jun 10, 2024 09:30 AM AMBULATORY - MEDICINE [facility] C [place] [place] [facility] Jun 23, 2024 08:00 AM AMBULATORY - REHAB MEDICIN [facility] [place] Jun 28, 2024 07:30 AM AMBULATORY - REHAB MEDICIN E [place] Jul 01, 2024 02:45 PM AMBULATORY - MEDICINE [facility] C [place]L [place] [facility] Jul 06, 2024 08:00 AM AMBULATORY - MEDICINE [facility] Jul 13, 2024 10:00 AM AMBULATORY - REHAB MEDICIN E [place] Jul 28, 2024 10:00 AM AMBULATORY - REHAB MEDICIN E [place] Aug 05, 2024 09:30 AM AMBULATORY - MEDICINE [facility] C [place]L [place] [facility] Aug 19, 2024 09:00 AM AMBULATORY - MEDICINE [facility] Aug 24, 2024 11:00 AM AMBULATORY - PSYCHIATRY CT [facility] [place] [facility] Aug 24, 2024 03:00 PM AMBULATORY - REHAB MEDICIN E [place] Aug 27, 2024 10:00 AM AMBULATORY - MEDICINE CT C NTRL W[facility] Lab Results: +/- 30 days of [...] Range Comment Mar 08, 2024 09:42 AM [place] LIPID PANEL FASTING Specimen Type: SERUM No comment entered. Ordering Provider: RAISA MARES Report Released Date/Time: Nov 28, 2023 09:56 AM Reporting Lab: [address] [address] [facility] [address] [address] CHOLESTEROL 126 mg/dL TRIGLYCERIDE 197 mg/dL H 0-150 LDL calculated 57 mg/dL 0-129 CHOL/HDL 4.2 HDL CHOLESTEROL 30 mg/dL L 40-60 Mar 08, 2024 09:42 AM [place] BASIC METABOLIC PANEL (fasting) Specime n Type: SERUM No comment entered. Ordering Provider: RAISA MARES Report Released Date/Time: Nov 28, 2023 09:56 AM Reporting Lab: [address] [place] [address] Performing Lab: [address] [address] UREA NITROGEN 14 mg/dL 7-25 GLUCOSE 230 mg/dL H 65-100 SODIUM 139 mmol/L 135-145 POTASSIUM 4.2 mmol/L 3.5-5.0 CHLORIDE 108 mmol/L 100-110 CO2 22 meq/L 20-30 CREATININE, Serum 1.22 mg/dL 0.50-1.40 eGFR(CKD-EPI 2020) 68 mL/min >60 Mar 08, 2024 09:42 AM [place] HEMOGLOBIN A1C PANEL Specimen Type: BLOOD Comment: [...] Nov 28, 2023 09:56 AM Reporting Lab: [address] [address] Performing Lab: [address] [address] HEMOGLOBIN A1C 7.4 H 4.0-5.6 Mar 08, 2024 09:42 AM [place] LIVER FUNCTION Specimen Type: SERUM No comment entered. Ordering Provider: RAISA MARES Report Released Date/Time: Nov 28, 2023 09:56 AM Reporting Lab: [address] [address] Performing Lab: [address] [address] PROTEIN,TOTAL 7.7 g/dL 6.0-8.3 ALBUMIN 4.3 g/dL 3.5-5.0 ALKALINE PHOSPHATASE 90 U/L 40-150 AST 26 U/L 5-34 ALT 46 U/L BILIRUBIN, TOTAL 1.2 mg/dL 0.2-1.2 BILIRUBIN, DIRECT 0.4 mg/dL 0-0.5 Mar 08, 2024 09:42 AM [place] CBC Specimen Type: BLOOD No comment entered. Ordering Provider: RAISA MARES Report Released Date/Time: Nov 28, 2023 09:56 AM Reporting Lab: [facility] [address] [facility] [address] Performing Lab: [facility] [address] [facility] [address] WBC 6.55 10*3/uL 4.50-11.00 RBC 5.57 10*6/uL 4.23-5.66 HGB 17.0 g/dL 12.8-17 HCT 50.1 39.2-50.4 MCV 89.9 fL 82-99 MCHC 33.9 g/dL 30.8-35.1 PLT 123 10*3/uL L 140-360 RDW-CV 12.9 12.0-16.0 MCH 30.5 pg 26.2-32.6 Mar 08, 2024 09:42 AM [place] VITAMIN D 25-OH (Therapy monitor) Speci men [...] For additional information, please refer to http://education .[employer]/faq/EHE958 (This link is being provided for informational/ educational purposes only.) This test was developed and its analytical performance characteristics have been determined by [employer], [place]. It has not been cleared or approved by the U.S. Food and Drug Administration. This assay has been validated pursuant to the CLIA regulations and is used for clinical purposes. This test was developed and its analytical performance characteristics have been determined by [employer] [place]. It has not been cleared or approved by the U.S. Food and Drug Administration. This assay has been validated pursuant to the CLIA regulations and is used for clinical purposes. Test Performed by [employer], [employer] [facility], [address] [place], [place] Mohit Cazares M.D., Ph.D., Director of Laboratories , CLIA [id number] TEST PERFORMED AT: , Ordering Provider: RAISA MARES Report Released Date/Time: Mar 08, 2024 09:16 AM Reporting Lab[facility] [address] [address] Performing Lab: [facility] [address] [address] VITAMIN D, 25-OH, TOTAL 19 ng/mL L 30-100 VITAMIN D, 25-OH, D3 19 ng/mL VITAMIN D, 25-OH, D2 <4 ng/mL Mar 08, 2024 09:42 AM [place] AMYLASE Specimen Type: SERUM No comment entered. Ordering Provider: RAISA MARES Report Released Date/Time: Mar 08, 2024 09:34 AM Reporting Lab: [facility] [address] [facility] [address] Performing Lab: [address] [address] AMYLASE 67 U/L 25-125 Mar 08, 2024 09:42 AM [place] LIPASE Specimen Type: SERUM No comment entered. Ordering Provider: ARISA MARES Report Released Date/Time: Mar 08, 2024 09:34 AM Reporting Lab: [facility] [address] [facility] [address] Performing Lab: [address] [address] LIPASE 53 U/L 8-82 Social History: Smoking [...] 11, 2023 08:30 AM [facility]-TOBACCO [facility] Tobacco Use History This section includes a history of the smoking, or tobacco-related health factors, that were collected on or before the date of the Encounter. The data comes from the [place] facility where the Encounter took place. Date/Time Smoking Status/Tobacco Use Comment F acility Mar 11, 2023 08:30 AM VA-TOBACCO [facility] [place] [facility] Dec 27, 2020 02:00 PM VA-TOBACCO FORMER USER CT CNTR [place] [place] [facility] Dec 27, 2020 02:00 PM VA-TOBACCO QUIT [address] Advance Directives: All historical and [...] 11:29 AM ABDOMEN (2 VIEWS): EMERITA BAUTISTA [id number] -1965 M [facility] Date: MAR 08, 2024@11:29 Req Phys: RAISA MARES Pat Loc: CWM/SO/PACT EIGHT WH (Req'g Lo Img Loc: [facility] 1 Service: [facility] , (Case 37 COMPLETE) ABDOMEN (2 VIEWS) (RAD Detailed) CPT:76689 Reason for Study: abdominal discomfort Clinical History: nausea, vomiting Report Status: Verified Date Reported: MAR 08, 2024 Date Verified: MAR 08, 2024 County Treasurer E-Sig:/ES/TERESA BLOUNT JR Report: Study: KUB supine [...] Primary Interpreting Staff: TERESA BLOUNT JR, Radiologist (County Treasurer) /EAD TERESA BLOUNT JR [facility] Mar 08, 2024 11:07 AM ABDOMINAL ULTRASOUND: EMERITA BAUTISTA [id number] -1965 M Exm Date: MAR 08, 2024@11:07 Req Phys: RAISA MARES Pat Loc: CWM/SO/PACT EIGHT WH (Req'g Lo Img Loc: ULTRASOUND Service: Unknown [facility] , (Case 32 COMPLETE) ULTRASOUND ABDOMEN (US Detailed) CPT:94782 Reason for Study: abdominal discomfort Clinical History: nausea, vomiting Report Status: Verified Date Reported: MAR 08, 2024 Date Verified: MAR 08, 2024 County Treasurer E-Sig:/ES/TERESA BLOUNT JR Report: Study: Abdomen ultrasound. [...] Primary Interpreting Staff: TERESA BLOUNT JR, Radiologist (County Treasurer) /TERESA AGUILAR JR [facility] Encounter Notes: All associated encounter notes This section contains the clinical notes associated to the Encounter. Date/Time Encounter Note(s) Provider Source Mar 15, 2024 02:49 PM LETTERS: LOCAL TITLE: PATIENT LETTER (T) STANDARD TITLE: LETTERS DATE OF NOTE: MAR 15, 2024@14:49 ENTRY DATE: MAR 15, 2024@14:49:43 AUTHOR: RAISA MARES EXP COSIGNER: URGENCY: STATUS: COMPLETED PATIENT LETTER (T) Has ADDENDA DEPARTMENT OF [facility] Toll Free Number Primary Care Telephone Assistance can be reached at extension [phone] [facility] scheduling can be reached at extension [phone] [facility] scheduling can be reached at ext [phone], [address] Dear Rutledge, I reviewed your blood test results. Your glucose level is elevated 213 hemoglobin A1c 7.4. Your triglycerides are mildly elevated 197 ; please continue current medications for your diabetes, and hyperlipidemia keep low carbohydrate diet and exercise as tolerated. Your vitamin D level is lower than normalplease continue current supplements The rest of blood work is within normal limits Also, I reviewed your abdominal x-ray. Impression: No acute abnormality identified. If you have any questions please call our office back Friday to Friday from 8 AM to 4 PM; the phone number is [phone]. Sincerely, Dr. Raisa Mares 03/15/2024 ADDENDUM STATUS: COMPLETED THIS ICE CREAM MIXER MAILED LETTER TO . /lora/ CLAUDE VIZCAINO ADVANCED SYRUP MAKER Signed: 03/15/2024 16:18 Sincerely, Your Primary Care Team [facility] [address] [facility] [address] [place] [address] [place] [address] [facility] [address] [place] [address] [place] [address] [phone] [facility] [address] [facility] [place] [address] [place] [address] RAISA MARES [place]
--- OUTSIDE RECORDS SUMMARY | 2024-09-30 08:39 | XMS_ITS | Encounter Summary ---
Author Name [facility] [facility] [place] [facility] [place] Address [address] [place] [address] Care Team Providers Care Senior C Software Engineer Name Role Phone CHANI RHODES Primary [...] [facility] H[facility] February 03, 2022 [id number] EMERITA BAUTISTA [facility]IENT [facility] MED[facility] MEDICAID MEDIC AID Oct 06, 2013 MEDICAI D [id number] EMERITA BAUTISTA PATIENT MEDICARE (WNR) MEDICARE (M) PART A Mar 06, 2015 PART A [id number] EMERITA BAUTISTA PATIENT MEDICARE (WNR) MEDICARE (M) PART B Mar 06, 2015 PART B [id number] [phone] EMERITA BAUTISTA PATIENT MEDICARE (WNR) MEDICARE (M) PART B Mar 06, 2015 PART B [id number] EMERITA BAUTISTA PATIENT MEDICARE (WNR) MEDICARE (M) PART A Mar 06, 2015 PART A [id number] EMERITA BAUTISTA PATIENT MEDICARE (WNR) MEDICARE (M) PART B Mar 06, 2015 PART B [id number] EMERITA BAUTISTA PATIENT MEDICARE (WNR) MEDICARE (M) PART B Mar 06, 2015 PART B [id number] EMERITA BAUTISTA PATIENT MEDICARE (WNR) MEDICARE (M) PART A Mar 06, 2015 PART A [id number] [phone] EMERITA BAUTISTA PATIENT Selected Encounter This section includes the information on record at [place] for the Encounter. Date/Time Encounter Type Encounter Description Reason Pro vider Source Mar 15, 2024 01:37 PM Outpatient Encounter PRIMARY CARE/MEDICINE IHE Encounter Template Text not used by [place] Plan of Treatment: Future Appointments (+ 6 months) and Future Tests (+/- 45 days) The Plan of Treatment section includes future care activities for the [facility] [place] [facility] This section includes future appointments and [...] - MEDICINE [place] [facility] [place] [facility] Apr 06, 2024 03:00 PM AMBULATORY - MEDICINE [place] [facility] [place] [facility] Apr 14, 2024 09:30 AM AMBULATORY - MEDICINE [place] [facility] [place] [facility] Apr 19, 2024 03:00 PM [facility] Apr 20, 2024 09:00 AM AMBULATORY - MEDICINE [place] [facility] [place] [facility] Apr 28, 2024 03:00 PM AMBULATORY - [place]ICINE [place] [facility] [place] [facility] May 21, 2024 09:45 AM AMBULATORY - MEDICINE [place] [facility] [place] [facility] Jun 10, 2024 09:30 AM AMBULATORY - MEDICINE [place] [facility] [place] [facility] Jun 23, 2024 08:00 AM AMBULATORY - [place] [facility] [place] Jun 28, 2024 07:30 AM AMBULATORY - [facility] [place] Jul 01, 2024 02:45 PM AMBULATORY - MEDICINE [place] [facility] [place] [facility] Jul 06, 2024 08:00 AM [facility]ATORY - MEDICINE [facility] Jul 13, 2024 10:00 AM AMBULATORY - REHAB MED[facility]IN [facility] [place] Jul 28, 2024 10:00 AM AMBULATORY - [facility] [place] Aug 05, 2024 09:30 AM AMBULATORY - MEDICINE [place] [facility] [place] [facility] Aug 19, 2024 09:00 AM AMBULATORY - MEDICINE [facility] Aug 24, 2024 11:00 AM AMBULATORY - PSYCHIATRY [place] [facility] [place] [facility] Aug 24, 2024 03:00 PM AMBULATORY - REHAB MEDICIN [place] Aug 27, 2024 10:00 AM AMBULATORY - MEDICINE [place] [facility] Lab Results: +/- 30 days [...] Range Comment Mar 08, 2024 09:42 AM [place] LIPID PANEL FASTING Specimen Type: SERUM No comment entered. Ordering Provider: VENKATA MARES Report Released Date/Time: Nov 28, 2023 09:56 AM Reporting Lab: [address] [address] Performing Lab: [facility] [address] [address] CHOLESTEROL 126 mg/dL TRIGLYCERIDE 197 mg/dL H 0-150 LDL calculated 57 mg/dL 0-129 CHOL/HDL 4.2 HDL CHOLESTEROL 30 mg/dL L 40-60 Mar 08, 2024 09:42 AM [place] BASIC METABOLIC PANEL (fasting) Specime n Type: SERUM No comment entered. Ordering Provider: VENKATA MARES Report Released Date/Time: Nov 28, 2023 09:56 AM Reporting Lab: [address] [place] [address] Performing Lab: [address] [address] UREA NITROGEN 14 mg/dL 7-25 GLUCOSE 230 mg/dL H 65-100 SODIUM 139 mmol/L 135-145 POTASSIUM 4.2 mmol/L 3.5-5.0 CHLORIDE 108 mmol/L 100-110 CO2 22 meq/L 20-30 CREATININE, Serum 1.22 mg/dL 0.50-1.40 eGFR(CKD-EPI 2020) 68 mL/min >60 Mar 08, 2024 09:42 AM [place] HEMOGLOBIN A1C PANEL Specimen Type: BLOOD Comment: [...] 28, 2023 09:56 AM Reporting Lab: [address] [address] Performing Lab: [address] [address] HEMOGLOBIN A1C 7.4 H 4.0-5.6 Mar 08, 2024 09:42 AM [place] LIVER FUNCTION Specimen Type: SERUM No comment entered. Ordering Provider: VENKATA MARES Report Released Date/Time: Nov 28, 2023 09:56 AM Reporting Lab: [address] [address] Performing Lab: [address] [address] PROTEIN,TOTAL 7.7 g/dL 6.0-8.3 ALBUMIN 4.3 g/dL 3.5-5.0 ALKALINE PHOSPHATASE 90 U/L 40-150 AST 26 U/L 5-34 ALT 46 U/L BILIRUBIN, TOTAL 1.2 mg/dL 0.2-1.2 BILIRUBIN, DIRECT 0.4 mg/dL 0-0.5 Mar 08, 2024 09:42 AM [place] CBC Specimen Type: BLOOD No comment entered. Ordering Provider: VENKATA MARES Report Released Date/Time: Nov 28, 2023 09:56 AM Reporting Lab: [facility] [address] [facility] [address] Performing Lab: [facility] [address] [facility] [address] WBC 6.55 10*3/uL 4.50-11.00 RBC 5.57 10*6/uL 4.23-5.66 HGB 17.0 g/dL 12.8-17 HCT 50.1 39.2-50.4 MCV 89.9 fL 82-99 MCHC 33.9 g/dL 30.8-35.1 PLT 123 10*3/uL L 140-360 RDW-CV 12.9 12.0-16.0 MCH 30.5 pg 26.2-32.6 Mar 08, 2024 09:42 AM [place] VITAMIN D 25-OH (Therapy monitor) Speci men [...] For additional information, please refer to http://education .Jildy.TakeCare/faq/FXV032 (This link is being provided for informational/ educational purposes only.) This test was developed and its analytical performance characteristics have been determined by [employer] [place], [place]. It has not been cleared or approved by the U.S. Food and Drug Administration. This assay has been validated pursuant to the CLIA regulations and is used for clinical purposes. This test was developed and its analytical performance characteristics have been determined by [employer] [place], [place]. It has not been cleared or approved by the U.S. Food and Drug Administration. This assay has been validated pursuant to the CLIA regulations and is used for clinical purposes. Test Performed by [facility], [employer] [facility], [address] [place], [place] Mohit Cazares M.D., Ph.D., Director of Laboratories , CLIA [id number] TEST PERFORMED AT: , Ordering Provider: VENKATA MARES Report Released Date/Time: Mar 08, 2024 09:16 AM Reporting Lab: [facility] [address] [facility] [address] Performing Lab: [facility] [address] [address] VITAMIN D, 25-OH, TOTAL 19 ng/mL L 30-100 VITAMIN D, 25-OH, D3 19 ng/mL VITAMIN D, 25-OH, D2 <4 ng/mL Mar 08, 2024 09:42 AM [place] AMYLASE Specimen Type: SERUM No comment entered. Ordering Provider: VENKATA MARES Report Released Date/Time: Mar 08, 2024 09:34 AM Reporting Lab: [facility] [address] [facility] [address] Performing Lab: [address] [address] AMYLASE 67 U/L 25-125 Mar 08, 2024 09:42 AM [place] LIPASE Specimen Type: SERUM No comment entered. Ordering Provider: VENKATA MARES Report Released Date/Time: Mar 08, 2024 09:34 AM Reporting [facility] [address] [facility] [address] Performing Lab: [address] [address] LIPASE 53 U/L 8-82 Social History: Smoking [...] 11, 2023 08:30 AM [place]-TOBACCO FORMER USER [facility] Tobacco Use History This section includes a history of the smoking, or tobacco-related health factors, that were collected on or before the date of the Encounter. The data comes from the [place] facility where the Encounter took place. Date/Time Smoking Status/Tobacco Use Comment F acility Mar 11, 2023 08:30 AM [facility] [place] [facility] Dec 27, 2020 02:00 PM VA-TOBACCO FORMER USER [place] [facility] [place] [facility] Dec 27, 2020 02:00 PM VA-TOBACCO QUIT 15 YRS OR MORE [facility] Advance Directives: All historical and current Section Date Range: From patient's date of to the date document was created. This section includes ALL of a patient's completed or amended [place] Advance and Rescinded Directives. The entries below indicate that a directive exists for the patient, but an actual copy is not included with this document. The data comes from all [place] facilities. Date Advance Directives Provider Source May [...] 11:29 AM ABDOMEN (2 VIEWS): EMERITA BAUTISTA [id number] -1965 [address] [facility] Date: MAR 08, 2024@11:29 Req Phys: VENKATA MARES Pat Loc: CWM/SO/PACT EIGHT WH (Req'g Lo Img Loc: [facility] 1 Service: Unknown [facility] , (Case 37 COMPLETE) ABDOMEN (2 VIEWS) (RAD Detailed) CPT:54466 Reason for Study: abdominal discomfort Clinical History: nausea, vomiting Report Status: Verified Date Reported: MAR 08, 2024 Date Verified: MAR 08, 2024 Field Marketer E-Sig:/ES/TERESA BLOUNT JR Report: Study: KUB supine [...] Primary Interpreting Staff: TERESA BLOUNT JR, Radiologist (Field Marketer) /EAD TERESA BLOUNT JR [facility] Mar 08, 2024 11:07 AM ABDOMINAL ULTRASOUND: EMERITA BAUTISTA [id number] -[id number] M Exm Date: MAR 08, 2024@11:07 Req Phys: VENKATA MARES Pat Loc: CWM/SO/PACT EIGHT WH (Req'g Lo Img Loc: ULTRASOUND Service: Unknown [facility] , (Case 32 COMPLETE) ULTRASOUND ABDOMEN (US Detailed) CPT:46826 Reason for Study: abdominal discomfort Clinical History: nausea, vomiting Report Status: Verified Date Reported: MAR 08, 2024 Date Verified: MAR 08, 2024 Field Marketer E-Sig:/ES/TERESA BLOUNT JR Report: Study: Abdomen ultrasound. [...] Primary Interpreting Staff: TERESA BLOUNT JR, Radiologist (Field Marketer) /TERESA AGUILAR JR [facility] Encounter Notes: All associated encounter notes This section contains the clinical notes associated to the Encounter. Date/Time Encounter Note(s) Provider Source Mar 15, 2024 01:37 PM PRIMARY CARE NOTE: LOCAL TITLE: WALK-IN NOTE PRIMARY CARE (T) STANDARD TITLE: PRIMARY CARE NOTE DATE OF NOTE: MAR 15, 2024@13:37 ENTRY DATE: MAR 15, 2024@13:37:44 AUTHOR: MAURA JOHNSON EXP COSIGNER: URGENCY: STATUS: COMPLETED WALK-IN NOTE PRIMARY CARE (T) Has ADDENDA <====Click to Start Advanced Medical Support [place] presents to the Primary Care clinic with the following request: [ ]Medication Renewal/Refill [ ]Consultation with Team RN [ ]Symptoms [ X ]Other The [place] states they are: [ ]Waiting [ X ]Not Waiting No Walk in visit scheduled with PACT Nurse [ X ] At this encounter the Hastings's demographics were verified. [ X ] At this encounter the Hastings's Insurance information was verified. [ X ] At this encounter the below scheduled visits for the were discussed and appointment reminder card was offered. Future appointments: 03/22/2024 14:15 CWM/NO/PAIN MD CLINIC 04/14/2024 09:30 CWM/SO/PHARM/PACT 2 04/19/2024 15:00 CWM/SO/PACT EIGHT 04/20/2024 09:00 NHM/OPTOMETRY/WELSH/ dropped off FMLA paperwork to be filled out by provider. Placed in provider's mailbox. /lora/ MAURA VARMA Signed: 03/15/2024 13:39 Receipt Acknowledged By: 03/15/2024 14:34 /es/ NIMCO SYKES RN-JUSTIN REGISTERED NURSE 03/15/2024 15:10 /es/ MANDO COOLEY LPN Licensed Practical Nurse 03/15/2024 ADDENDUM STATUS: COMPLETED Called and inquired if he had spoken to PCP about completion of fmla form with PCP at time of last office visit on 03/08/2024. reports that they did not discuss fmla form at that time. reports that he is having significant pain that is interfering with his ability to perform his work duties. Author advised that PACT will hold on to form but that he will have to discuss completing form at time of upcoming PCP appt on April 19, 2024 and is agreeable. Author also advised Hastings that he could discuss the form with his pain management provider also in case he would be agreeable to complete it for since majority of issue with performing his work duties is due to his chronic pain issues. /lora/ NIMCO SYKES RN-BC REGISTERED NURSE Signed: 03/15/2024 14:45 03/15/2024 ADDENDUM STATUS: COMPLETED Form is available for review and completion within PACT rightfax folder. /lora/ NIMCO SYKES RN-BC REGISTERED NURSE Signed: 03/15/2024 14:45 MAURA JOHNSON
--- OUTSIDE RECORDS SUMMARY | 2024-09-30 08:39 | XMS_ITS ---
Author Name [facility] Organization [facility] Address [address] [place] [address] Care Team Providers Care Cork Insulation Setter Name Role Phone CHANI RHODES Primary [...] [facility] H[facility] February 03, 2022 [id number] EMERITA RIVERA PATIENT [facility] MEDICAID MEDICAID MEDIC AID Oct 06, 2013 MEDICAI D [id number] EMERITA RIVERA PATIENT MEDICARE (WNR) MEDICARE (M) PART A Mar 06, 2015 PART A [id number] EMERITA RIVERA PATIENT MEDICARE (WNR) MEDICARE (M) PART B Mar 06, 2015 PART B [id number] EMERITA RIVERA PATIENT MEDICARE (WNR) MEDICARE (M) PART B Mar 06, 2015 PART B [id number] EMERITA RIVERA PATIENT MEDICARE (WNR) MEDICARE (M) PART A Mar 06, 2015 PART A [id number] EMERITA RIVERA PATIENT MEDICARE (WNR) MEDICARE (M) PART B Mar 06, 2015 PART B [id number] [phone] EMERITA RIVERA PATIENT MEDICARE (WNR) MEDICARE (M) PART B Mar 06, 2015 PART B [id number] [phone] EMERITA RIVERA PATIENT MEDICARE (WNR) MEDICARE (M) PART A Mar 06, 2015 PART A [id number] EMERITA RIVERA PATIENT Selected Encounter This section includes the information on record at MD for the Encounter. Date/Time Encounter Type Encounter Description Reason Pro vider Source Mar 10, 2024 09:09 AM Outpatient Encounter PRIMARY CARE/MEDICINE IHE Encounter Template Text not used by MD Plan of Treatment: Future Appointments (+ 6 months) and Future Tests (+/- 45 days) The Plan of Treatment section includes future care activities for the patient [facility] This section includes future appointments and future orders which are active, pending or scheduled. Future Appointments This section includes appointments that were scheduled to occur 6 months from the date of the Encounter, up to a maximum of 20 appointments. The data comes from all MD treatment facilities. Appointment Date/Time Appointment Type Appointme nt Facility Name Mar 22, 2024 02:15 PM AMBULATORY - MEDICINE [facility] [place] [facility] Apr 06, 2024 03:00 PM AMBULATORY - MEDICINE [facility] [place] [facility] Apr 14, 2024 09:30 AM AMBULATORY - MEDICINE [place] [facility] [place] [facility] Apr 19, 2024 03:00 PM [facility] Apr 20, 2024 09:00 AM AMBULATORY - MEDICINE [place] [facility] [place] [facility] Apr 28, 2024 03:00 PM AMBULATORY - MEDICINE [facility] [place] [facility] May 21, 2024 09:45 AM AMBULATORY - MEDICINE [facility] [place] [facility] Jun 10, 2024 09:30 AM AMBULATORY - MEDICINE [facility] [place] [facility] Jun 23, 2024 08:00 AM AMBULATORY - REHAB MEDICIN [facility] Jun 28, 2024 07:30 AM AMBULATORY - REHAB [facility]IN [facility] Jul 01, 2024 02:45 PM AMBULATORY - MEDICINE [facility] Jul 06, 2024 08:00 AM [facility] Jul 13, 2024 10:00 AM AMBULATORY - REHAB MEDICIN [facility] Jul 28, 2024 10:00 AM AMBULATORY - REHAB MEDICIN [facility] Aug 05, 2024 09:30 AM AMBULATORY - MEDICINE [facility] N[facility]L [facility]N [facility] Aug 19, 2024 09:00 AM AM[facility]ULATORY [facility] Aug 24, 2024 11:00 AM [facility] Aug 24, 2024 03:00 PM [facility] Aug 27, 2024 10:00 AM AMBULATORY - MEDICINE [facility] Lab Results: +/- 30 days of the encounter This section includes the Chemistry and Hematology Lab Results on record with MD for the patient. Radiology Reports and Pathology Reports are provided separately, in subsequent sections. Lab Results This section contains the Chemistry/Hematology Results that were resulted 30 days before or 30 daysafter the date of the Encounter. Date/Time Source Result Type Result - Unit Interpretation Reference Range Comment Mar 08, 2024 09:42 AM [facility] BASIC METABOLIC PANEL (fasting) Specime n Type: SERUM No comment entered. Ordering Provider: RAISA MARES Report Released Date/Time: Nov 28, 2023 09:56 AM Reporting Lab: [address] [address] Performing Lab: [address] [address] UREA NITROGEN 14 mg/dL 7-25 GLUCOSE 230 mg/dL H 65-100 SODIUM 139 mmol/L 135-145 POTASSIUM 4.2 mmol/L 3.5-5.0 CHLORIDE 108 mmol/L 100-110 CO2 22 meq/L 20-30 CREATININE, Serum 1.22 mg/dL 0.50-1.40 eGFR(CKD-EPI 2020) 68 mL/min >60 Mar 08, 2024 09:42 AM [facility] LIPID PANEL FASTING Specimen Type: SERUM No comment entered. Ordering Provider: RAISA MARES Report Released Date/Time: Nov 28, 2023 09:56 AM Reporting Lab: [address] [address] Performing Lab: [address] [address] CHOLESTEROL 126 mg/dL TRIGLYCERIDE 197 mg/dL H 0-150 LDL calculated 57 mg/dL 0-129 CHOL/HDL 4.2 HDL CHOLESTEROL 30 mg/dL L 40-60 Mar 08, 2024 09:42 AM [facility] LIVER FUNCTION Specimen Type: SERUM No comment entered. Ordering Provider: RAISA MARES Report Released Date/Time: Nov 28, 2023 09:56 AM Reporting Lab: [address] [address] Performing Lab: [address] [address] PROTEIN,TOTAL 7.7 g/dL 6.0-8.3 ALBUMIN 4.3 g/dL 3.5-5.0 ALKALINE PHOSPHATASE 90 U/L 40-150 AST 26 U/L 5-34 ALT 46 U/L BILIRUBIN, TOTAL 1.2 mg/dL 0.2-1.2 BILIRUBIN, DIRECT 0.4 mg/dL 0-0.5 Mar 08, 2024 09:42 AM [facility] HEMOGLOBIN A1C PANEL Specimen Type: BLOOD Comment: [...] Nov 28, 2023 09:56 AM Reporting Lab: [address] [address] Performing Lab: [address] [address] HEMOGLOBIN A1C 7.4 H 4.0-5.6 Mar 08, 2024 09:42 AM [facility] CBC Specimen Type: BLOOD No comment entered. Ordering Provider: RAISA MARES Report Released Date/Time: Nov 28, 2023 09:56 AM Reporting Lab: [facility] [address] [facility] [address] Performing Lab: [facility] [address] [address] WBC 6.55 10*3/uL 4.50-11.00 RBC 5.57 10*6/uL 4.23-5.66 HGB 17.0 g/dL 12.8-17 HCT 50.1 39.2-50.4 MCV 89.9 fL 82-99 MCHC 33.9 g/dL 30.8-35.1 PLT 123 10*3/uL L 140-360 RDW-CV 12.9 12.0-16.0 MCH 30.5 pg 26.2-32.6 Mar 08, 2024 09:42 AM [facility] VITAMIN D 25-OH (Therapy monitor) Speci men [...] For additional information, please refer to http://education .[employer]/faq/OVC166 (This link is being provided for informational/ educational purposes only.) This test was developed and its analytical performance characteristics have been determined by [employer] [place], [place]. It has not been cleared or approved by the U.S. Food and Drug Administration. This assay has been validated pursuant to the CLIA regulations and is used for clinical purposes. This test was developed and its analytical performance characteristics have been determined by [employer] [place], [place]. It has not been cleared or approved by the U.S. Food and Drug Administration. This assay has been validated pursuant to the CLIA regulations and is used for clinical purposes. Test Performed by [facility], [facility][1], [address] [place], [place] Mohit Cazares M.D., Ph.D., Director of Laboratories , CLIA [id number] TEST PERFORMED AT: , Ordering Provider: RAISA MARES Report Released Date/Time: Mar 08, 2024 09:16 AM Reporting Lab: [facility] [address] [facility] [address] Performing Lab: [facility] [address] [address] VITAMIN D, 25-OH, TOTAL 19 ng/mL L 30-100 VITAMIN D, 25-OH, D3 19 ng/mL VITAMIN D, 25-OH, D2 <4 ng/mL Mar 08, 2024 09:42 AM [facility] LIPASE Specimen Type: SERUM No comment entered. Ordering Provider: RAISA MARES Report Released Date/Time: Mar 08, 2024 09:34 AM Reporting Lab: [facility] [address] [facility] [address] Performing Lab: [facility] [address] [facility] [address] LIPASE 53 U/L 8-82 Mar 08, 2024 09:42 AM [facility] AMYLASE Specimen Type: SERUM No comment entered. Ordering Provider: RAISA MARES Report Released Date/Time: Mar 08, 2024 09:34 AM Reporting Lab[facility] [address] [facility] [address] Performing Lab: [address] [address] AMYLASE 67 U/L 25-125 Social History: Smoking Status (Most current) and Tobacco Use (All prior to encounter date) This section includes the most current, and the historical, smoking and tobacco- related health factors from the MD facility where the Encounter took place. Current Smoking Status This section includes the most current smoking, or tobacco-related health factor, from the MD facility where the Encounter took place. Date/Time Current Smoking Status Comment Facil [facility] Mar 11, 2023 08:30 AM [facility]-TO[facility]ACCO [facility] Tobacco Use History This section includes a history of the smoking, or tobacco-related health factors, that were collected on or before the date of the Encounter. The data comes from the MD facility where the Encounter took place. Date/Time Smoking Status/Tobacco Use Comment F acility Mar 11, 2023 08:30 AM VA-TOBACCO [facility]IT [facility] [place] [facility] Dec 27, 2020 02:00 PM VA-TOBACCO FORMER USER [facility] [place] [facility] Dec 27, 2020 02:00 PM VA-TOBACCO QUIT 15 YRS OR MORE [facility] Advance Directives: All historical and current Section Date Range: From patient's date of to the date document was created. This section includes ALL of a patient's completed or amended [place] Advance and Rescinded Directives. The entries below indicate that a directive exists for the patient, but an actual copy is not included with this document. The data comes from all MD facilities. Date Advance Directives Provider Source May [...] the Encounter. The data comes from all MD treatment facilities. Date/Time Radiology Report Provider Source Mar 08, 2024 11:29 AM ABDOMEN (2 VIEWS): EMERITA RIVERA [id number] -1965 M [facility] Date: MAR 08, 2024@11:29 Req Phys: RAISA MARES Pat Loc: CWM/SO/PACT EIGHT WH (Req'g Lo Img Loc: [facility]/BUILDING 1 Service: Unknown [facility] , (Case 37 COMPLETE) ABDOMEN (2 VIEWS) (RAD Detailed) CPT:01999 Reason for Study: abdominal discomfort Clinical History: nausea, vomiting Report Status: Verified Date Reported: MAR 08, 2024 Date Verified: MAR 08, 2024 Senior Research Project Manager E-Sig:/ES/TERESA BLOUNT JR Report: Study: KUB [...] Primary Interpreting Staff: TERESA BLOUNT JR, Radiologist (Senior Research Project Manager) /EAD TERESA BLOUNT JR [facility] Mar 08, 2024 11:07 AM ABDOMINAL ULTRASOUND: EMERITA RIVERA [id number] -[id number] M Exm Date: MAR 08, 2024@11:07 Req Phys: RAISA MARES Pat Loc: CWM/SO/PACT EIGHT WH (Req'g Lo Img Loc: ULTRASOUND Service: Unknown [facility] , (Case 32 COMPLETE) ULTRASOUND ABDOMEN (US Detailed) CPT:02313 Reason for Study: abdominal discomfort Clinical History: nausea, vomiting Report Status: Verified Date Reported: MAR 08, 2024 Date Verified: MAR 08, 2024 Senior Research Project Manager E-Sig:/ES/TERESA BLOUNT JR Report: Study: Abdomen [...] Primary Interpreting Staff: TERESA BLOUNT JR, Radiologist (Senior Research Project Manager) /TERESA AGUILAR JR [facility] Encounter Notes: All associated encounter notes This section contains the clinical notes associated to the Encounter. Date/Time Encounter Note(s) Provider Source Mar 10, 2024 09:09 AM ADMINISTRATIVE NOT E: LOCAL TITLE: ADMINISTRATIVE NOTE STANDARD TITLE: ADMINISTRATIVE NOTE DATE OF NOTE: MAR 10, 2024@09:09 ENTRY DATE: MAR 10, 2024@09:09:16 AUTHOR: NADINE ALVAREZ EXP COSIGNER: URGENCY: STATUS: [place] [address] [phone] * Date:MAR 10, 2024 Re: EMERITA RIVERA, To whom it may concern, Please be informed that Mr. Rivera was seen in the clinic at the [facility] in [place]. He may return to work on Friday, March 15, 2024. Thank you for your consideration. If you have any questions please do not hesitate to contact me. Sincerely, Dr. Raisa Mares /lora/ RAISA MARES MD PRIMARY CARE PHYSICIAN /lora/ NADINE ALVAREZ RN REGISTERED NURSE Signed: 03/10/2024 09:11 NADINE ALVAREZ
--- OUTSIDE RECORDS SUMMARY | 2024-09-30 08:40 | XMS_ITS | Encounter Summary ---
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 Name Role Phone CHANI RHODES Primary Care [...] [facility] H[facility] February 03, 2022 [id number] EMERITA BAUTISTA PATIENT [facility] MEDICAID MEDICAID MEDIC AID Oct 06, 2013 MEDICAI D [id number] EMERITA BAUTISTA PATIENT MEDICARE (WNR) MEDICARE (M) PART A Mar 06, 2015 PART A [id number] [phone] EMERITA BAUTISTA PATIENT MEDICARE (WNR) MEDICARE (M) PART B Mar 06, 2015 PART B [id number] EMERITA BAUTISTA PATIENT MEDICARE (WNR) MEDICARE (M) PART B Mar 06, 2015 PART B [id number] EMERITA BAUTISTA PATIENT MEDICARE (WNR) MEDICARE (M) PART A Mar 06, 2015 PART A [id number] EMERITA BAUTISTA PATIENT MEDICARE (WNR) MEDICARE (M) PART B Mar 06, 2015 PART B [id number] EMERITA BAUTISTA PATIENT MEDICARE (WNR) MEDICARE (M) PART A Mar 06, 2015 PART A [id number] EMERITA BAUTISTA PATIENT MEDICARE (WNR) MEDICARE (M) PART B Mar 06, 2015 PART B [id number] [phone] EMERITA BAUTISTA PATIENT Selected Encounter This section includes the information on record at [place] for the Encounter. Date/Time Encounter Type Encounter Description Reason Pro vider Source Apr 06, 2024 12:25 PM Outpatient Encounter PRIMARY CARE/MEDICINE IHE Encounter Template Text not used by [place] Plan of Treatment: Future Appointments (+ 6 months) and Future Tests (+/- 45 days) The Plan of Treatment section includes future care activities for the patient from all [place] [facility]fac[facility]. This section includes future appointments and future orders which are active, pending or scheduled. Future Appointments This section includes appointments that were scheduled to occur 6 months from the date of the Encounter, up to a maximum of 20 appointments. The data comes from all [place] treatment facilities. Appointment Date/Time Appointment Type Appointme nt Facility Name Apr 14, 2024 09:30 AM AMBULATORY - MEDICINE [place] [facility] [place] [facility] Apr 19, 2024 03:00 PM AMBULATORY - MEDICINE [facility] Apr 20, 2024 09:00 AM AMBULATORY - [place]ICINE [place] [facility] [place] [facility] [facility] Apr 28, 2024 03:00 PM AMBULATORY - MEDICINE [place] [facility] [place] [facility] May 21, 2024 09:45 AM AMBULATORY - MEDICINE [place] [facility] [place] [facility] Jun 10, 2024 09:30 AM AMBULATORY - MEDICINE [place] [facility] [place] [facility] Jun 23, 2024 08:00 AM AMBULATORY - REHAB MEDICIN [facility] Jun 28, 2024 07:30 AM AMBULATORY - REHAB MEDICIN [facility] Jul 01, 2024 02:45 PM AMBULATORY - MEDICINE [place] [facility] [place] [facility] Jul 06, 2024 08:00 AM AMBULATORY - MEDICINE [facility] Jul 13, 2024 10:00 AM AM[facility] [place] Jul 28, 2024 10:00 AM [facility]UL[facility] [place] Aug 05, 2024 09:30 AM [place] [facility] [place] [facility] Aug 19, 2024 09:00 AM [facility] Aug 24, 2024 11:00 AM AMBULATORY - PSYCHIATRY [place] [facility] [place] [facility] Aug 24, 2024 03:00 PM AMBULATORY - [facility] [place] Aug 27, 2024 10:00 AM AMBULATORY - MEDICINE [place] [facility] [place] [facility] Sep 16, 2024 08:30 AM [facility] - [facility] Sep 23, 2024 03:30 PM AMBULATORY - MEDICINE [place] [facility] [place] [facility] Sep 24, 2024 12:00 PM AMBULATORY - MEDICINE [place] [facility] [place] [place] [facility] Lab Results: +/- 30 days of the encounter This section includes the Chemistry and Hematology Lab Results on record with [place] for the patient. Radiology Reports and Pathology Reports are provided separately, in subsequent sections. Lab Results This section contains the Chemistry/Hematology Results that were resulted 30 days before or 30 daysafter the date of the Encounter. Date/Time Source Result Type Result - Unit Interpretation Reference Range Comment Mar 08, 2024 09:42 AM [place] LIPID PANEL FASTING Specimen Type: SERUM No comment entered. Ordering Provider: VENKATA MARES Report Released Date/Time: Nov 28, 2023 09:56 AM Reporting Lab: [place] [facility] [place] [facility] [address] [facility] [address] Performing Lab[facility] [address] [address] [address] CHOLESTEROL 126 mg/dL TRIGLYCERIDE 197 mg/dL H 0-150 LDL calculated 57 mg/dL 0-129 CHOL/HDL 4.2 HDL CHOLESTEROL 30 mg/dL L 40-60 Mar 08, 2024 09:42 AM [place] BASIC METABOLIC PANEL (fasting) Specime n Type: SERUM No comment entered. Ordering Provider: VENKATA MARES Report Released Date/Time: Nov 28, 2023 09:56 AM Reporting Lab: [address] [address] Performing Lab: [address] [address] U[place]A NITROGEN 14 mg/dL 7-25 GLUCOSE 230 mg/dL H 65-100 SODIUM 139 mmol/L 135-145 POTASSIUM 4.2 mmol/L 3.5-5.0 CHLORIDE 108 mmol/L 100-110 CO2 22 meq/L 20-30 CREATININE, Serum 1.22 mg/dL 0.50-1.40 eGFR(CKD-EPI 2020) 68 mL/min >60 Mar 08, 2024 09:42 AM [place] LIVER FUNCTION Specimen Type: SERUM No comment entered. Ordering Provider: VENKATA MARES Report Released Date/Time: Nov 28, 2023 09:56 AM Reporting Lab: [address] [address] Performing Lab: [address] [address] PROTEIN,TOTAL 7.7 g/dL 6.0-8.3 ALBUMIN 4.3 g/dL 3.5-5.0 ALKALINE PHOSPHATASE 90 U/L 40-150 AST 26 U/L 5-34 ALT 46 U/L BILIRUBIN, TOTAL 1.2 mg/dL 0.2-1.2 BILIRUBIN, DIRECT 0.4 mg/dL 0-0.5 Mar 08, 2024 09:42 AM [place] HEMOGLOBIN A1C PANEL Specimen Type: BLOOD Comment: [...] Nov 28, 2023 09:56 AM Reporting Lab: [address] [address] Performing Lab: [address] [address] HEMOGLOBIN A1C 7.4 H 4.0-5.6 Mar 08, 2024 09:42 AM [place] CBC Specimen Type: BLOOD No comment entered. Ordering Provider: VENKATA MARES Report Released Date/Time: Nov 28, 2023 09:56 AM Reporting Lab: [facility] [address] [address] [address] Performing Lab: [facility] [address] [address] WBC 6.55 10*3/uL 4.50-11.00 RBC 5.57 10*6/uL 4.23-5.66 HGB 17.0 g/dL 12.8-17 HCT 50.1 39.2-50.4 MCV 89.9 fL 82-99 MCHC 33.9 g/dL 30.8-35.1 PLT 123 10*3/uL L 140-360 RDW-CV 12.9 12.0-16.0 MCH 30.5 pg 26.2-32.6 Mar 08, 2024 09:42 AM [place] VITAMIN D 25-OH (Therapy monitor) Speci men [...] For additional information, please refer to http://education .[employer]/faq/WDR304 (This link is being provided for informational/ educational purposes only.) This test was developed and its analytical performance characteristics have been determined by [facility] [place]. It has not been cleared or approved by the U.S. Food and Drug Administration. This assay has been validated pursuant to the CLIA regulations and is used for clinical purposes. This test was developed and its analytical performance characteristics have been determined by [facility] [place]. It has not been cleared or approved by the U.S. Food and Drug Administration. This assay has been validated pursuant to the CLIA regulations and is used for clinical purposes. Test Performed by [facility], [employer] [facility], [address] [place] [address] Mohit Cazares M.D., Ph.D., Director of Laboratories , CLIA [id number] TEST PERFORMED AT: , Ordering Provider: VENKATA MARES Report Released Date/Time: Mar 08, 2024 09:16 AM Reporting Lab: [facility] [address] [facility] [address] Performing Lab: [facility] [address] [address] VITAMIN D, 25-OH, TOTAL 19 ng/mL L 30-100 VITAMIN D, 25-OH, D3 19 ng/mL VITAMIN D, 25-OH, D2 <4 ng/mL Mar 08, 2024 09:42 AM [place] LIPASE Specimen Type: SERUM No comment entered. Ordering Provider: VENKATA MARES Report Released Date/Time: Mar 08, 2024 09:34 AM Reporting Lab: [address] [address] Performing Lab: [address] [address] LIPASE 53 U/L 8-82 Mar 08, 2024 09:42 AM [place] AMYLASE Specimen Type: SERUM No comment entered. Ordering Provider: VENKATA MARES Report Released Date/Time: Mar 08, 2024 09:34 AM Reporting Lab: [facility] [address] [facility] [address] Performing Lab: [address] [address] AMYLASE 67 U/L 25-125 Social History: Smoking Status (Most current) and Tobacco Use (All prior to encounter date) This section includes the most current, and the historical, smoking and tobacco- related health factors from the [facility] where the Encounter took place. Current Smoking Status This section includes the most current smoking, or tobacco-related health factor, from the [place] facility where the Encounter took place. Date/Time Current Smoking Status Comment Facil ity Mar 11, 2023 08:30 AM [place]-TOBACCO [facility] [place] [facility] Tobacco Use History This section includes a history of the smoking, or tobacco-related health factors, that were collected on or before the date of the Encounter. The data comes from the [place] facility where the Encounter took place. Date/Time Smoking Status/Tobacco Use Comment F acility Mar 11, 2023 08:30 AM VA-TOBACCO QUIT 15 YRS OR MORE [place] [facility] [facility] Dec 27, 2020 02:00 PM VA-TOBACCO FORMER USER [place] [facility] [place] [facility] Dec 27, 2020 02:00 PM VA-TOBACCO QUIT 15 YRS OR MORE [facility] Advance Directives: All historical and current Section Date Range: From patient's date of to the date document was created. This section includes ALL of a patient's completed or amended [place] Advance and Rescinded Directives. The entries below indicate that a directive exists for the patient, but an actual copy is not included with this document. The data comes from all [place] facilities. Date Advance Directives Provider Source May [...] the Encounter. The data comes from all [place] treatment facilities. Date/Time Radiology Report Provider Source Apr 27, 2024 08:46 AM KNEE 3 VIEWS (RIGHT): BAUTISTA,EMERITA T [id number] -[id number] M Ex Date: APR 27, 2024@08:46 Req Phys: VENKATA MARES Pat Loc: CWM/SO/PACT EIGHT WH (Req'g Lo Img Loc: [facility] 1 Service: Unknown [facility] , (Case 62 COMPLETE) KNEE 1 OR 2 VIEWS (RIGHT) (RAD Detailed) CPT:12961 Proc Modifiers : BILATERAL EXAM Reason for Study: chronic pain (Case 63 COMPLETE) KNEES BILATERAL STANDING (RAD Detailed) CPT:79819 (Case 64 COMPLETE) KNEE 1 OR 2 VIEWS (LEFT) (RAD Detailed) CPT:52043 Proc Modifiers : BILATERAL EXAM Clinical History: Report Status: Verified Date Reported: APR 27, 2024 Date Verified: APR 27, 2024 Sound Assistant E-Sig:/ES/TERESA BLOUNT JR Report: Study: AP weight-bearing views of the knees with lateral and sunrise views of the left and right knees. Comparison: Bilateral knee radiographs from October 30, 2022 with right knee radiographs from June 29, 2019. 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 The prosthetic components appear intact and without evidence of loosening. There is diffuse narrowing of the right knee joint medial and lateral compartments again present of questionable clinical significance. The resurfaced right patella appears normally located with punctate calcifications again seen in the distal quadriceps tendon and the infrapatellar fat-pad. There is a small right suprapatellar knee joint effusion present. Mild diffuse degenerative narrowing is present to the medial and lateral joint compartments of the left knee, unchanged, with prominent enthesopathy changes present to the inferior pole of the patella again present with mild diffuse narrowing of the left patellofemoral joint space present. No left suprapatellar knee joint effusion is identified. No acute bony abnormality is identified to either knee. Impression: Knee changes, as described above. Primary Diagnostic Code: No immediate attention required Primary Interpreting Staff: TERESA BLOUNT JR, Radiologist (Sound Assistant) /EAD TERESA BLOUNT JR [facility] Mar 08, 2024 11:29 AM ABDOMEN (2 VIEWS): EMERITA BAUTISTA [id number] -1965 M [facility] Date: MAR 08, 2024@11:29 Req Phys: STELIDIAAVENKATA F Pat Loc: CWM/SO/PACT EIGHT WH (Req'g Lo Img Loc: [facility] 1 Service: Unknown [facility] , (Case 37 COMPLETE) ABDOMEN (2 VIEWS) (RAD Detailed) CPT:11850 Reason for Study: abdominal discomfort Clinical History: nausea, vomiting Report Status: Verified Date Reported: MAR 08, 2024 Date Verified: MAR 08, 2024 Sound Assistant E-Sig:/ES/TERESA BLOUNT JR Report: Study: KUB supine [...] Primary Interpreting Staff: TERESA BLOUNT JR, Radiologist (Sound Assistant) /EAD TERESA BLOUNT JR [facility] Mar 08, 2024 11:07 AM ABDOMINAL ULTRASOUND: EMERITA BAUTISTA [id number] -1965 M Exm Date: MAR 08, 2024@11:07 Req Phys: VENKATA MARES Pat Loc: CWM/SO/PACT EIGHT WH (Req'g Lo Img Loc: ULTRASOUND Service: Unknown [facility] , (Case 32 COMPLETE) ULTRASOUND ABDOMEN (US Detailed) CPT:61383 Reason for Study: abdominal discomfort Clinical History: nausea, vomiting Report Status: Verified Date Reported: MAR 08, 2024 Date Verified: MAR 08, 2024 Sound Assistant E-Sig:/ES/TERESA BLOUNT JR Report: Study: Abdomen ultrasound. [...] Primary Interpreting Staff: TERESA BLOUNT JR, Radiologist (Sound Assistant) /TERESA AGUILAR JR [facility] Encounter Notes: All associated encounter notes This section contains the clinical notes associated to the Encounter. Date/Time Encounter Note(s) Provider Source Apr 16, 2024 03:16 PM ADDENDUM: LOCAL TITLE: Addendum STANDARD TITLE: ADDENDUM DATE OF NOTE: APR 16, 2024@15:16:47 ENTRY DATE: APR 16, 2024@15:16:48 AUTHOR: VINICIO BYRNE EXP COSIGNER: URGENCY: STATUS: COMPLETED does not have a current orthopedic consult for the left knee, or the left hip. Please enter two new orthopedic consults, one for the left knee and one for the left hip if appropriate. /es/ VINICIO BYRNE ADVANCED ADDICTION NURSE Signed: 04/16/2024 15:17 Receipt Acknowledged By: 04/20/2024 13:54 /es/ NUHA SYKESN RN-BC REGISTERED NURSE 04/16/2024 15:25 /es/ MANDO COOLEY LPN Licensed Practical Nurse 04/21/2024 08:56 /es/ VENKATA MARES MD PRIMARY CARE PHYSICIAN --- Original Document --- 04/06/24 WALK-IN NOTE PRIMARY CARE (T): <====Click to Start Advanced Medical Support presents to the Primary Care clinic with the following request: [ ]Medication Renewal/Refill [ ]Consultation with Team RN [ ]Symptoms [ X ]Other The states they are: [ ]Waiting [ X ]Not Waiting No Walk in visit scheduled with PACT Nurse [ X ] At this encounter the [place]'s demographics were verified. [ X ] At this encounter the [place]'s Insurance information was verified. [ X ] At this encounter the below scheduled visits for the [place] were discussed and appointment reminder card was offered. Future appointments: 04/06/2024 15:00 CWM/NO/PAIN MD CLINIC 04/14/2024 09:30 CWM/SO/PHARM/PACT 2 04/19/2024 15:00 CWM/SO/PACT EIGHT 04/20/2024 09:00 NHM/OPTOMETRY/WELSH/ requesting a diagnosis code be faxed to [facility] for his recent referral. States he called [facility] and they stated they need a diagnosis code for his left knee and left hip. He ia also requesting status for his FMLA forms. Best contact:[phone]. /es/ [place] VAR[place] Signed: 04/06/2024 12:34 Receipt Acknowledged By: 04/16/2024 14:37 /lora/ NIMCO SYKES RN-BC REGISTERED NURSE * AWAITING SIGNATURE * SHAHBAZ BECK 04/16/2024 ADDENDUM STATUS: COMPLETED forwarding to CC staff for follow up. [place] is scheduled with PCP to discuss submitted forms for completion /es/ NIMCO SYKES RN-JUSTIN REGISTERED NURSE Signed: 04/16/2024 14:37 Receipt Acknowledged By: 04/16/2024 15:14 /lora/ VINICIO BYRNE ADVANCED ADDICTION NURSE VINICIO BYRNE Apr 16, 2024 02:37 PM ADDENDUM: LOCAL TITLE: Addendum STANDARD TITLE: ADDENDUM DATE OF NOTE: APR 16, 2024@14:37:23 ENTRY DATE: APR 16, 2024@14:37:24 AUTHOR: BHARGAV WELCH COSIGNER: URGENCY: STATUS: COMPLETED forwarding to CC staff for follow up. [place] is scheduled with PCP to discuss submitted forms for completion /lora/ NIMCO SYKES RN-BC REGISTERED NURSE Signed: 04/16/2024 14:37 Receipt Acknowledged By: 04/16/2024 15:14 /es/ VINICIO BYRNE ADVANCED ADDICTION NURSE --- Original Document --- 04/06/24 WALK-IN NOTE PRIMARY CARE (T): <====Click to Start Advanced Medical Support [place] presents to the Primary Care clinic with the following request: [ ]Medication Renewal/Refill [ ]Consultation with Team RN [ ]Symptoms [ X ]Other The [place] states they are: [ ]Waiting [ X ]Not Waiting No Walk in visit scheduled with PACT Nurse [ X ] At this encounter the [place]'s demographics were verified. [ X ] At this encounter the [place]'s Insurance information was verified. [ X ] At this encounter the below scheduled visits for the [place] were discussed and appointment reminder card was offered. Future appointments: 04/06/2024 15:00 CWM/NO/PAIN MD CLINIC 04/14/2024 09:30 CWM/SO/PHARM/PACT 2 04/19/2024 15:00 CWM/SO/PACT EIGHT 04/20/2024 09:00 NHM/OPTOMETRY/WELSH/ requesting a diagnosis code be faxed to [facility] for his recent referral. States he called [facility] and they stated they need a diagnosis code for his left knee and left hip. He ia also requesting status for his FMLA forms. Best contact:[phone]. /es/ [place] VAR[place] Signed: 04/06/2024 12:34 Receipt Acknowledged By: 04/16/2024 14:37 /lora/ NIMCO SYKES RN-JUSTIN REGISTERED NURSE * AWAITING SIGNATURE * SHAHBAZ BECK [facility] [place] Apr 06, 2024 12:25 PM PRIMARY CARE NOTE: LOCAL TITLE: WALK-IN NOTE PRIMARY CARE (T) STANDARD TITLE: PRIMARY CARE NOTE DATE OF NOTE: APR 06, 2024@12:25 ENTRY DATE: APR 06, 2024@12:25:25 AUTHOR: [place] EXP COSIGNER: URGENCY: STATUS: COMPLETED WALK-IN NOTE PRIMARY CARE (T) Has ADDENDA <====Click to Start Advanced Medical Support presents to the Primary Care clinic with the following request: [ ]Medication Renewal/Refill [ ]Consultation with Team RN [ ]Symptoms [ X ]Other The [place] states they are: [ ]Waiting [ X ]Not Waiting No Walk in visit scheduled with PACT Nurse [ X ] At this encounter the 's demographics were verified. [ X ] At this encounter the [place]'s Insurance information was verified. [ X ] At this encounter the below scheduled visits for the [place] were discussed and appointment reminder card was offered. Future appointments: 04/06/2024 15:00 CWM/NO/PAIN MD CLINIC 04/14/2024 09:30 CWM/SO/PHARM/PACT 2 04/19/2024 15:00 CWM/SO/PACT [facility] 04/20/2024 09:00 NHM/OPTOMETRY/WELSH/ [place] requesting a diagnosis code be faxed to [facility] for his recent referral. States he called [facility] and they stated they need a diagnosis code for his left knee and left hip. He ia also requesting status for his FMLA forms. Best contact:[phone]. /lora/ [place] AMSFrancisco J Signed: 04/06/2024 12:34 Receipt Acknowledged By: 04/16/2024 14:37 /lora/ NIMCO SYKES RN-BC REGISTERED NURSE 05/10/2024 15:16 /es/ SHAHBAZ BECK LPN LPN 04/16/2024 ADDENDUM STATUS: COMPLETED forwarding to CC staff for follow up. is scheduled with PCP to discuss submitted forms for completion /lora/ NIMCO SYKES RN-BC REGISTERED NURSE Signed: 04/16/2024 14:37 Receipt Acknowledged By: 04/16/2024 15:14 /es/ VINICIO BYRNE ADVANCED ADDICTION NURSE 04/16/2024 ADDENDUM STATUS: COMPLETED does not have a current orthopedic consult for the left knee, or the left hip. Please enter two new orthopedic consults, one for the left knee and one for the left hip if appropriate. /es/ VINICIO BYRNE ADVANCED ADDICTION NURSE Signed: 04/16/2024 15:17 Receipt Acknowledged By: 04/20/2024 13:54 /es/ NIMCO SYKES RN-BC REGISTERED NURSE 04/16/2024 15:25 /es/ MANDO COOLEY LPN Licensed Practical Nurse 04/21/2024 08:56 /es/ VENKATA MARES MD PRIMARY CARE PHYSICIAN [place]
--- OUTSIDE RECORDS SUMMARY | 2024-09-30 08:40 | XMS_ITS | Encounter Summary ---
Author Name [facility] [place] Organization [facility] [place] Address [address] [place] [address] Care Team Providers Care Dredge Runner Name Role Phone CHANI RHODES Primary Care [...] [facility] February 03, 2022 [id number] EMERITA BAUTISTA PATIENT [facility] MEDICAID MEDICAID MEDIC AID Oct 06, 2013 MEDICAI D [id number] EMERITA BAUTISTA PATIENT MEDICARE (WNR) MEDICARE (M) PART A Mar 06, 2015 PART A [id number] EMERITA BAUTISTA PATIENT MEDICARE (WNR) MEDICARE (M) PART B Mar 06, 2015 PART B [id number] EMERITA BAUTISTA PATIENT MEDICARE (WNR) MEDICARE (M) PART B Mar 06, 2015 PART B [id number] EMERITA BAUTISTA PATIENT MEDICARE (WNR) MEDICARE (M) PART A Mar 06, 2015 PART A [id number] EMERITA BAUTISTA PATIENT MEDICARE (WNR) MEDICARE (M) PART B Mar 06, 2015 PART B [id number] EMERITA BAUTISTA PATIENT MEDICARE (WNR) MEDICARE (M) PART B Mar 06, 2015 PART B [id number] EMERITA BAUTISTA PATIENT MEDICARE (WNR) MEDICARE (M) PART A Mar 06, 2015 PART A [id number] EMERITA BAUTISTA PATIENT Selected Encounter This section includes the information on record at [place] for the Encounter. Date/Time Encounter Type Encounter Description Reason Pro vider Source Apr 05, 2024 09:51 AM Outpatient Encounter PAIN CLINIC [facility] Encounter Template Text not used by [place] Plan of Treatment: Future Appointments (+ 6 months) and Future Tests (+/- 45 days) The Plan of Treatment section includes future care activities for the patient from all [place] treatmentfaciluab hospital. This section includes future appointments and future orders which are active, pending or scheduled. Future Appointments This section includes appointments that were scheduled to occur 6 months from the date of the Encounter, up to a maximum of 20 appointments. The data comes from all [place] treatment facilities. Appointment Date/Time Appointment Type Appointme nt Facility Name Apr 06, 2024 03:00 PM AMBULATORY - MEDICINE [place] [facility] [place] [facility] Apr 14, 2024 09:30 AM AMBULATORY - MEDICINE [facility] [place] [facility] Apr 19, 2024 03:00 PM AMBULATORY [facility] Apr 20, 2024 09:00 AM AMBULATORY - MEDICINE [place] [facility] [place] [facility] Apr 28, 2024 03:00 PM AMBULATORY - MEDICINE [facility] [place] [facility] May 21, 2024 09:45 AM AMBULATORY - MEDICINE [place] [facility] [place] [facility] Jun 10, 2024 09:30 AM AMBULATORY - MEDICINE [place] [facility] [place] [facility] Jun 23, 2024 08:00 AM AMBULATORY - REHAB MEDICIN [facility] Jun 28, 2024 07:30 AM AMBULATORY - REHAB MEDICIN [facility] Jul 01, 2024 02:45 PM AMBULATORY - MEDICINE [place] [facility] [place] [facility] Jul 06, 2024 08:00 AM AMBULATORY - MEDICINE [facility] Jul 13, 2024 10:00 AM AMBULATORY - RE[facility]AB [facility] Jul 28, 2024 10:00 AM AMBULATORY - REHAB MEDICIN [facility] [place] Aug 05, 2024 09:30 AM AMBULATORY - MEDICINE [place] [facility] [place] [facility] Aug 19, 2024 09:00 AM [facility] Aug 24, 2024 11:00 AM AMBULATORY - PSYCHIATRY [facility] [place] [facility] Aug 24, 2024 03:00 PM AMBULATORY - REHAB MEDICIN [facility] [place] Aug 27, 2024 10:00 AM AMBULATORY - MEDICINE [place] [facility] [place] [facility] Sep 16, 2024 08:30 AM AMBULATORY - MEDICINE [facility] Sep 23, 2024 03:30 PM [facility] Lab Results: +/- 30 days [...] Range Comment Mar 08, 2024 09:42 AM [place] LIPID PANEL FASTING Specimen Type: SERUM No comment entered. Ordering Provider: VENKATA MARES Report Released Date/Time: Nov 28, 2023 09:56 AM Reporting Lab: [place] [facility] [place] [facility] [address] [facility] [address] Performing Lab: [place] [facility] [place] [address] [address] CHOLESTEROL 126 mg/dL TRIGLYCERIDE 197 mg/dL H 0-150 LDL calculated 57 mg/dL 0-129 CHOL/HDL 4.2 HDL CHOLESTEROL 30 mg/dL L 40-60 Mar 08, 2024 09:42 AM [place] BASIC METABOLIC PANEL (fasting) Specime n Type: SERUM No comment entered. Ordering Provider: VENKATA MARES Report Released Date/Time: Nov 28, 2023 09:56 AM Reporting Lab: [facility] [address] [facility] [address] Performing Lab: [address] [address] UREA NITROGEN 14 mg/dL 7-25 GLUCOSE 230 mg/dL H 65-100 SODIUM 139 mmol/L 135-145 POTASSIUM 4.2 mmol/L 3.5-5.0 CHLORIDE 108 mmol/L 100-110 CO2 22 meq/L 20-30 CREATININE, Serum 1.22 mg/dL 0.50-1.40 eGFR(CKD-EPI 2020) 68 mL/min >60 Mar 08, 2024 09:42 AM [place] HEMOGLOBIN A1C PANEL Specimen Type: BLOOD Comment: [...] Nov 28, 2023 09:56 AM Reporting Lab: [address] [address] Performing Lab: [address] [address] HEMOGLOBIN A1C 7.4 H 4.0-5.6 Mar 08, 2024 09:42 AM [place] LIVER FUNCTION Specimen Type: SERUM No comment entered. Ordering Provider: VENKATA MARES Report Released Date/Time: Nov 28, 2023 09:56 AM Reporting Lab: [facility] [address] [facility] [address] Performing Lab: [address] [address] PROTEIN,TOTAL 7.7 g/dL 6.0-8.3 ALBUMIN 4.3 g/dL 3.5-5.0 ALKALINE PHOSPHATASE 90 U/L 40-150 AST 26 U/L 5-34 ALT 46 U/L BILIRUBIN, TOTAL 1.2 mg/dL 0.2-1.2 BILIRUBIN, DIRECT 0.4 mg/dL 0-0.5 Mar 08, 2024 09:42 AM [place] CBC Specimen Type: BLOOD No comment entered. Ordering Provider: VENKATA MARES Report Released Date/Time: Nov 28, 2023 09:56 AM Reporting Lab: [facility] [address] [facility] [address] Performing Lab: [facility] [address] [facility] [address] WBC 6.55 10*3/uL 4.50-11.00 RBC 5.57 10*6/uL 4.23-5.66 HGB 17.0 g/dL 12.8-17 HCT 50.1 39.2-50.4 MCV 89.9 fL 82-99 MCHC 33.9 g/dL 30.8-35.1 PLT 123 10*3/uL L 140-360 RDW-CV 12.9 12.0-16.0 MCH 30.5 pg 26.2-32.6 Mar 08, 2024 09:42 AM [place] VITAMIN D 25-OH (Therapy monitor) Speci men [...] For additional information, please refer to http://education .[employer].Coremetrics/faq/TIX056 (This link is being provided for informational/ educational purposes only.) This test was developed and its analytical performance characteristics have been determined by [employer] [place], [place]. It has not been cleared or approved by the U.S. Food and Drug Administration. This assay has been validated pursuant to the CLIA regulations and is used for clinical purposes. This test was developed and its analytical performance characteristics have been determined by [employer] [place], [place]. It has not been cleared or approved by the U.S. Food and Drug Administration. This assay has been validated pursuant to the CLIA regulations and is used for clinical purposes. Test Performed by [facility], [facility], [address] [place], [place] Mohit Cazares M.D., Ph.D., Director of Laboratories , CLIA [id number] TEST PERFORMED AT: , Ordering Provider: VENKATA MARES Report Released Date/Time: Mar 08, 2024 09:16 AM Reporting Lab: [facility] [address] [facility] [address] Performing Lab: [facility] [address] [address] VITAMIN D, 25-OH, TOTAL 19 ng/mL L 30-100 VITAMIN D, 25-OH, D3 19 ng/mL VITAMIN D, 25-OH, D2 <4 ng/mL Mar 08, 2024 09:42 AM [place] AMYLASE Specimen Type: SERUM No comment entered. Ordering Provider: VENKATA MARES Report Released Date/Time: Mar 08, 2024 09:34 AM Reporting Lab: [facility] [address] [facility] [address] Performing Lab: [address] [address] AMYLASE 67 U/L 25-125 Mar 08, 2024 09:42 AM [place] LIPASE Specimen Type: SERUM No comment entered. Ordering Provider: VENKATA MARES Report Released Date/Time: Mar 08, 2024 09:34 AM Reporting Lab: [facility] [address] [facility] [address] Performing Lab: [address] [address] LIPASE 53 U/L 8-82 Social History: Smoking [...] Current Smoking Status Comment Ana ity Mar 11, 2023 08:30 AM [place]-TOBACCO FORMER USER [place] [facility] [place] [facility] Tobacco Use History This section includes a history of the smoking, or tobacco-related health factors, that were collected on or before the date of the Encounter. The data comes from the [place] facility where the Encounter took place. Date/Time Smoking Status/Tobacco Use Comment F acility Mar 11, 2023 08:30 AM VA-TOBACCO QUIT 15 YRS OR MORE [place] [facility] [place] [facility] Dec 27, 2020 02:00 PM VA-TOBACCO FORMER USER [place] [facility] [place] [facility] Dec 27, 2020 02:00 PM VA-TOBACCO QUIT 15 YRS OR MORE [facility] [place] [facility] Advance Directives: All historical and current [...] Source May 23, 2011 ADVANCE DIRECTIVE JUD BROKOS Radiology Reports: +/- 30 days of the [...] 08:46 AM KNEE 3 VIEWS (RIGHT): BAUTISTA,EMERITA Marixa [id number] -1965 M Ex Date: APR 27, 2024@08:46 Req Phys: VENKATA MARES Pat Loc: CWM/SO/PACT EIGHT WH (Req'g Lo Img Loc: [facility] 1 Service: Unknown [facility] [place] [facility] , (Case 62 COMPLETE) KNEE 1 OR 2 VIEWS (RIGHT) (RAD Detailed) CPT:48277 Proc Modifiers : BILATERAL EXAM Reason for Study: chronic pain (Case 63 COMPLETE) KNEES BILATERAL STANDING (RAD Detailed) CPT:62559 (Case 64 COMPLETE) KNEE 1 OR 2 VIEWS (LEFT) (RAD Detailed) CPT:95079 Proc Modifiers : BILATERAL EXAM Clinical History: Report Status: Verified Date Reported: APR 27, 2024 Date Verified: APR 27, 2024 Pediatric Oncology Nurse E-Sig:/ES/TERESA BLOUNT JR Report: Study: AP weight-bearing [...] Primary Interpreting Staff: TERESA BLOUNT JR, Radiologist (Pediatric Oncology Nurse) /EAD TERESA BLOUNT JR [facility] Mar 08, 2024 11:29 AM ABDOMEN (2 VIEWS): EMERITA BAUTISTA [id number] -[id number] M Ex Date: MAR 08, 2024@11:29 Req Phys: DEBORAHAVENKATA F Pat Loc: CWM/SO/PACT EIGHT WH (Req'g Lo Img Loc: [facility] 1 Service: Unknown [facility] , (Case 37 COMPLETE) ABDOMEN (2 VIEWS) (RAD Detailed) CPT:97366 Reason for Study: abdominal discomfort Clinical History: nausea, vomiting Report Status: Verified Date Reported: MAR 08, 2024 Date Verified: MAR 08, 2024 Moxie Jean E-Sig:/ES/TERESA BLOUNT JR Report: Study: KUB supine [...] Primary Interpreting Staff: TERESA BLOUNT JR, Radiologist (Pediatric Oncology Nurse) /EAD TERESA BLOUNT JR [facility] Mar 08, 2024 11:07 AM ABDOMINAL ULTRASOUND: EMERITA BAUTISTA [id number] -1965 M Exm Date: MAR 08, 2024@11:07 Req Phys: VENKATA MARES Pat Loc: CWM/SO/PACT EIGHT WH (Req'g Lo Img Loc: ULTRASOUND Service: Unknown [facility] , (Case 32 COMPLETE) ULTRASOUND ABDOMEN (US Detailed) CPT:57440 Reason for Study: abdominal discomfort Clinical History: nausea, vomiting Report Status: Verified Date Reported: MAR 08, 2024 Date Verified: MAR 08, 2024 Moxie Jean E-Sig:/ES/TERESA BLOUNT JR Report: Study: Abdomen ultrasound. [...] Primary Interpreting Staff: TERESA BLOUNT JR, Radiologist (Pediatric Oncology Nurse) /TERESA AGUILAR JR [facility] Encounter Notes: All associated encounter notes This section contains the clinical notes associated to the Encounter. Date/Time Encounter Note(s) Provider Source Apr 05, 2024 09:51 AM TELEPHONE ENCOUNTE R NOTE: LOCAL TITLE: TELEPHONE NOTE/SPECIALTY CLINIC STANDARD TITLE: TELEPHONE ENCOUNTER NOTE DATE OF NOTE: APR 05, 2024@09:51 ENTRY DATE: APR 05, 2024@09:51:50 AUTHOR: NELLA CIFUENTES EXP COSIGNER: URGENCY: STATUS: COMPLETED Called and spoke with pt to remind them that they have a FTF appt with the Pain clinic on 04/06/2024 at 1500. Location was confirmed /lora/ NELLA CIFUENTES [employer] SUPERVISOR Signed: 04/05/2024 09:52 NELLA CIFUENTES [facility]
--- OUTSIDE RECORDS SUMMARY | 2024-09-30 08:40 | XMS_ITS ---
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 Name Role Phone CHANI RHODES Primary [...] to Policy Zayas [employer] D[employer] DENTAL INSURANCE [facility] February 03, 2022 [id number] EMERITA BAUTISTA PATIENT [facility] MEDICAID MEDICAID MEDIC AID Oct 06, 2013 MEDICAI D [id number] EMERITA BAUTISTA PATIENT MEDICARE (WNR) MEDICARE (M) PART A Mar 06, 2015 PART A [id number] EMERITA BAUTISTA PATIENT MEDICARE (WNR) MEDICARE (M) PART B Mar 06, 2015 PART B [id number] [phone] EMERITA BAUTISTA PATIENT MEDICARE (WNR) MEDICARE (M) PART B Mar 06, 2015 PART B [id number] [phone] EMERITA BAUTISTA PATIENT MEDICARE (WNR) MEDICARE (M) PART A Mar 06, 2015 PART A [id number] EMERITA BAUTISTA PATIENT MEDICARE (WNR) MEDICARE (M) PART A Mar 06, 2015 PART A [id number] [phone] EMERITA BAUTISTA PATIENT MEDICARE (WNR) MEDICARE (M) PART B Mar 06, 2015 PART B [id number] [facility] EMERITA BAUTISTA PATIENT MEDICARE (WNR) MEDICARE (M) PART B Mar 06, 2015 PART B [id number] EMERITA BAUTISTA PATIENT Selected Encounter This section includes the information on record at [place] for the Encounter. Date/Time Encounter Type Encounter Description Reason Provider Source Apr 06, 2024 03:00 PM OFFICE O/P EST HI 40 MIN PAIN CLINIC ICD-10-CM M19.91 Primary osteoarthritis, unspecified site KUPFERSCHMID,S ETH B E Encounter Template Text not used by [place] Assessments - Encounter Diagnoses This section includes the primary and secondary diagnoses documented for the Encounter. Date/Time Primary/Secondary Diagnosis Diagnosis Name Provider Source Apr 06, 2024 03:28 PM PRIMARY Primary osteoarthritis, unspecified site KUPFERSCHMID,S ETH B [place] [facility] [place] [facility] Apr 06, 2024 03:28 PM SECONDARY Low back pain, unspecified KUPFERSCHMID,S ETH B [place] [facility] [place] [facility] Apr 06, 2024 03:28 PM SECONDARY Radiculopathy, cervical region KUPFERSCHMID,S ETH B [place] [facility] [place] [facility] Plan of Treatment: Future Appointments (+ 6 months) and Future Tests (+/- 45 days) The Plan of Treatment section includes future care activities for the patient from all [place] treatmentfacilities. This section includes future appointments and future orders which are active, pending or scheduled. Future Appointments This section includes appointments that were scheduled to occur 6 months from the date of the Encounter, up to a maximum of 20 appointments. The data comes from all [place] treatment facilities. Appointment Date/Time Appointment Type Appointme nt Facility Name Apr 14, 2024 09:30 AM AMBULATORY - MEDICINE [facility] [place] [facility] Apr 19, 2024 03:00 PM AM[facility]ATORY - MEDICINE [facility] Apr 20, 2024 09:00 AM [facility] [place] [facility] Apr 28, 2024 03:00 PM AM[facility]ULATORY [facility] MED[facility]INE [facility] [place] [facility] May 21, 2024 09:45 AM AM[facility]ULATORY [facility]INE [facility] [place] [facility] Jun 10, 2024 09:30 AM AMBULATORY [facility]ICINE [facility] [place] [facility] Jun 23, 2024 08:00 AM AMBULATORY - REHAB [facility] Jun 28, 2024 07:30 AM AMBULATORY - [facility] Jul 01, 2024 02:45 PM [facility] [place] [facility] Jul 06, 2024 08:00 AM [facility] Jul 13, 2024 10:00 AM AMBULATORY - REHAB MED[facility]IN [facility] Jul 28, 2024 10:00 AM AMBULATORY - RE[facility]AB [facility] Aug 05, 2024 09:30 AM AM[facility]ULATORY [facility] MEDICINE [facility] [place] [facility] Aug 19, 2024 09:00 AM [facility]ATORY - MEDICINE [facility] Aug 24, 2024 11:00 AM AMBULATORY - PSYCHIATRY [facility] [place] [facility] Aug 24, 2024 03:00 PM AM[facility]ULATORY - RE[facility]AB [facility] Aug 27, 2024 10:00 AM AM[facility]ULATORY [facility]ICINE [facility] [place] [facility] Sep 16, 2024 08:30 AM [facility] Sep 23, 2024 03:30 PM AM[facility]ATORY [facility] MEDICINE [facility] [place] [facility] Sep 24, 2024 12:00 PM AMBULATORY - MEDICINE [facility] [place] [facility] Lab Results: +/- 30 days of the encounter This section includes the Chemistry and Hematology Lab Results on record with [place] for the patient. Radiology Reports and Pathology Reports are provided separately, in subsequent sections. Lab Results This section contains the Chemistry/Hematology Results that were resulted 30 days before or 30 daysafter the date of the Encounter. Date/Time Source Result Type Result - Unit Interpretation Reference Range Comment Mar 08, 2024 09:42 AM [facility] LIPID PANEL FASTING Specimen Type: SERUM No comment entered. Ordering Provider: VENKATA MARES Report Released Date/Time: Nov 28, 2023 09:56 AM Reporting [facility]: [facility] [address] [address] Performing Lab: [facility] [address] [address] CHOLESTEROL 126 mg/dL TRIGLYCERIDE 197 mg/dL H 0-150 LDL calculated 57 mg/dL 0-129 CHOL/HDL 4.2 HDL CHOLESTEROL 30 mg/dL L 40-60 Mar 08, 2024 09:42 AM [facility] BASIC METABOLIC PANEL (fasting) Specime n Type: SERUM No comment entered. Ordering Provider: VENKATA MARES Report Released Date/Time: Nov 28, 2023 09:56 AM Reporting [facility]: [facility] [address] [address] Performing Lab: [address] [address] UREA NITROGEN 14 mg/dL 7-25 GLUCOSE 230 mg/dL H 65-100 SODIUM 139 mmol/L 135-145 POTASSIUM 4.2 mmol/L 3.5-5.0 CHLORIDE 108 mmol/L 100-110 CO2 22 meq/L 20-30 CREATININE, Serum 1.22 mg/dL 0.50-1.40 eGFR(CKD-EPI 2020) 68 mL/min >60 Mar 08, 2024 09:42 AM [facility] LIVER FUNCTION Specimen Type: SERUM No comment entered. Ordering Provider: VENKATA MARES Report Released Date/Time: Nov 28, 2023 09:56 AM Reporting Lab: [address] [address] Performing Lab: [address] [address] PROTEIN,TOTAL 7.7 g/dL 6.0-8.3 ALBUMIN 4.3 g/dL 3.5-5.0 ALKALINE PHOSPHATASE 90 U/L 40-150 AST 26 U/L 5-34 ALT 46 U/L BILIRUBIN, TOTAL 1.2 mg/dL 0.2-1.2 BILIRUBIN, DIRECT 0.4 mg/dL 0-0.5 Mar 08, 2024 09:42 AM [facility] HEMOGLOBIN A1C PANEL Specimen Type: BLOOD Comment: [...] Nov 28, 2023 09:56 AM Reporting Lab: [address] [address] Performing Lab: [address] [address] HEMOGLOBIN A1C 7.4 H 4.0-5.6 Mar 08, 2024 09:42 AM [facility] CBC Specimen Type: BLOOD No comment entered. Ordering Provider: VENKATA MARES Report Released Date/Time: Nov 28, 2023 09:56 AM Reporting Lab: [address] [address] Performing Lab: [address] [address] WBC 6.55 10*3/uL 4.50-11.00 RBC 5.57 10*6/uL 4.23-5.66 HGB 17.0 g/dL 12.8-17 HCT 50.1 39.2-50.4 MCV 89.9 fL 82-99 MCHC 33.9 g/dL 30.8-35.1 PLT 123 10*3/uL L 140-360 RDW-CV 12.9 12.0-16.0 MCH 30.5 pg 26.2-32.6 Mar 08, 2024 09:42 AM [facility] VITAMIN D 25-OH (Therapy monitor) Speci men [...] For additional information, please refer to http://education .Poikos/faq/RKJ634 (This link is being provided for informational/ educational purposes only.) This test was developed and its analytical performance characteristics have been determined by [employer] [place] [address], [place]. It has not been cleared or approved by the U.S. Food and Drug Administration. This assay has been validated pursuant to the CLIA regulations and is used for clinical purposes. This test was developed and its analytical performance characteristics have been determined by [employer] [place] [address], [place]. It has not been cleared or approved by the U.S. Food and Drug Administration. This assay has been validated pursuant to the CLIA regulations and is used for clinical purposes. Test Performed by [facility], [facility], [address] [place] [address] Mohit Cazares M.D., Ph.D., Director of Laboratories , CLIA [id number] TEST PERFORMED AT: , Ordering Provider: VENKATA MARES Report Released Date/Time: Mar 08, 2024 09:16 AM Reporting Lab: [address] [address] Performing Lab: [address] [address] VITAMIN D, 25-OH, TOTAL 19 ng/mL L 30-100 VITAMIN D, 25-OH, D3 19 ng/mL VITAMIN D, 25-OH, D2 <4 ng/mL Mar 08, 2024 09:42 AM [facility] AMYLASE Specimen Type: SERUM No comment entered. Ordering Provider: VENKATA MARES Report Released Date/Time: Mar 08, 2024 09:34 AM Reporting Lab: [address] [address] Performing Lab: [address] [address] AMYLASE 67 U/L 25-125 Mar 08, 2024 09:42 AM [facility] LIPASE Specimen Type: SERUM No comment entered. Ordering Provider: VENKATA MARES Report Released Date/Time: Mar 08, 2024 09:34 AM Reporting Lab: [facility] [address] [facility] [address] Performing Lab: [facility] [address] [facility] [address] LIPASE 53 U/L 8-82 Social History: Smoking Status (Most current) and Tobacco Use (All prior to encounter date) This section includes the most current, and the historical, smoking and tobacco- related health factors from the [place] facility where the Encounter took place. Current Smoking Status This section includes the most current smoking, or tobacco-related health factor, from the [place] facility where the Encounter took place. Date/Time Current Smoking Status Comment Facil ity Mar 11, 2023 08:30 AM [place]-TOBACCO FORMER USER [facility] Tobacco Use History This section includes a history of the smoking, or tobacco-related health factors, that were collected on or before the date of the Encounter. The data comes from the [place] facility where the Encounter took place. Date/Time Smoking Status/Tobacco Use Comment F acility Mar 11, 2023 08:30 AM [place] [facility] Dec 27, 2020 02:00 PM [place] [facility] [place] [facility] Dec 27, 2020 02:00 PM [place]-TO[place]AC[place] QU[place] 15 YRS OR MORE [facility] Advance Directives: All historical and current Section Date Range: From patient's date of to the date document was created. This section includes ALL of a patient's completed or amended [place] Advance and Rescinded Directives. The entries below indicate that a directive exists for the patient, but an actual copy is not included with this document. The data comes from all [place] facilities. Date Advance Directives Provider Source May [...] the Encounter. The data comes from all [place] treatment facilities. Date/Time Radiology Report Provider Source Apr 27, 2024 08:46 AM KNEE 3 VIEWS (RIGHT): EMERITA BAUTISTA [id number] -1965 M Exm Date: APR 27, 2024@08:46 Req Phys: VENKATA MARES F Pat Loc: CWM/SO/PACT EIGHT WH (Req'g Lo Img Loc: [facility] 1 Service: Unknown [place] [facility] [place] [facility] , (Case 62 COMPLETE) KNEE 1 OR 2 VIEWS (RIGHT) (RAD Detailed) CPT:78041 Proc Modifiers : BILATERAL EXAM Reason for Study: chronic pain (Case 63 COMPLETE) KNEES BILATERAL STANDING (RAD Detailed) CPT:68508 (Case 64 COMPLETE) KNEE 1 OR 2 VIEWS (LEFT) (RAD Detailed) CPT:63216 Proc Modifiers : BILATERAL EXAM Clinical History: Report Status: Verified Date Reported: APR 27, 2024 Date Verified: APR 27, 2024 Inbound Call Center Representative E-Sig:/ES/TERESA BLOUNT JR Report: Study: AP weight-bearing [...] Primary Interpreting Staff: TERESA BLOUNT JR, Radiologist (Inbound Call Center Representative) /TERESA AGUILAR JR [place] [facility] [place] [facility] Mar 08, 2024 11:29 AM ABDOMEN (2 VIEWS): EMERITA BAUTISTA [id number] -1965 M Exm Date: MAR 08, 2024@11:29 Req Phys: STELEA,VENKATA F Pat Loc: CWM/SO/PACT EIGHT WH (Req'g Lo Img Loc: [facility] 1 Service: Unknown [place] [facility] [place] [facility] , (Case 37 COMPLETE) ABDOMEN (2 VIEWS) (RAD Detailed) CPT:72313 Reason for Study: abdominal discomfort Clinical History: nausea, vomiting Report Status: Verified Date Reported: MAR 08, 2024 Date Verified: MAR 08, 2024 Inbound Call Center Representative E-Sig:/ES/TERESA BLOUNT JR Report: Study: KUB supine [...] Primary Interpreting Staff: TERESA BLOUNT JR, Radiologist (Inbound Call Center Representative) /TERESA AGUILAR JR [place] [facility] [place] [facility] Mar 08, 2024 11:07 AM ABDOMINAL ULTRASOUND: EMERITA BAUTISTA [id number] -1965 M Exm Date: MAR 08, 2024@11:07 Req Phys: STELEA,VENKATA F Pat Loc: CWM/SO/PACT EIGHT WH (Req'g Lo Img Loc: ULTRASOUND Service: Unknown [place] [facility] [place] [facility] , (Case 32 COMPLETE) ULTRASOUND ABDOMEN (US Detailed) CPT:13242 Reason for Study: abdominal discomfort Clinical History: nausea, vomiting Report Status: Verified Date Reported: MAR 08, 2024 Date Verified: MAR 08, 2024 Inbound Call Center Representative E-Sig:/ES/TERESA BLOUNT JR Report: Study: Abdomen ultrasound. [...] Primary Interpreting Staff: TERESA BLOUNT JR, Radiologist ([place]) /TERESA AGUILAR JR [facility] Encounter Notes: All associated encounter notes This section contains the clinical notes associated to the Encounter. Date/Time Encounter Note(s) Provider Source Apr 06, 2024 03:02 PM PAIN MEDICINE OUTPATIENT NOTE: LOCAL TITLE: PAIN CLINIC NOTE STANDARD TITLE: PAIN MEDICINE OUTPATIENT NOTE DATE OF NOTE: APR 06, 2024@15:02 ENTRY DATE: APR 06, 2024@15:02:23 AUTHOR: SABA KINCAID EXP COSIGNER: URGENCY: STATUS: COMPLETED CURRENT ======= Made appt with [facility] for evaluation for right hip and knee replacement. Pain remains insufferable: knee, hip, walking with cane. Vicodin did not help. 2 at night helped relax him and improved sleep. Stayed in bed for Father's Day. Feels like he cannot work anymore. Had meltdown at work from pain. 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 FAMILY HISTORY SUBSTANCE USE HISTORY Tobacco: None ETOH: None; stopped 20 years ago. Marijuana: None. Illicit drugs: Past, including pills. ASSESSMENT and PLAN 58 year old [employer] [place], 70% service-connected for musculoskeletal injuries, with DDD and DJD affecting his low back and right knee; he has mid-back and neck pain also. 04/06/2024 Has not started Butrans due to conversation with at last appt; she was opposed to medication. He did not increase gabapentin as she wanted because the increased dose causes fogginess. He said he will speak with her again and start trial of Butrans. -Limited amount of Vicodin -Butrans trial ORTHO needs right hip and knee replacement. He called [facility] to start process. MOOD, QUALITY of LIFE Pain diminishess his enjoyment of family, he is not able to be active, he would like to retire due to pain. His mood is depressed because of pain. Supportive listening and motivational interviewing during appointment. [place] and I formulated the plan through shared medical-decision making. [place] repeated the plan back to me and had no further questions at end of appointment. APPOINTMENT LENGTH: 40 minutes FOLLOW-UP: 4 weeks to review response to Butrans 04/14/2024 09:30 CWM/SO/PHARM/PACT 2 04/19/2024 15:00 CWM/SO/PACT EIGHT 04/20/2024 09:00 NHM/OPTOMETRY/WELSH/ === MEDICATION and RECONCILIATION === Active Outpatient Medications (including Supplies): Active Outpatient Medications Status 1) ACETAMINOPHEN 500MG TAB TAKE TWO TABLETS BY MOUTH ACTIVE THREE TIMES DAILY NEEDED FOR PAIN 2) ATORVASTATIN CALCIUM 80MG TAB TAKE ONE TABLET BY ACTIVE MOUTH AT BEDTIME FOR HIGH CHOLESTEROL 3) BUPRENORPHINE 5MCG/HR PATCH APPLY 1 PATCH TO SKIN ACTIVE EVERY 5 DAYS (REMOVE PATCH BEFORE APPLYING A NEW PATCH) 4) CHOLECALCIF 50MCG (D3-2,000UNIT) TAB TAKE ONE TABLET ACTIVE BY MOUTH ONCE DAILY FOR VITAMIN SUPPLEMENTATION 5) DICLOFENAC NA 1% TOP GEL APPLY 4 GRAMS TOPICALLY ACTIVE TWICE DAILY NEEDED FOR OSTEOARTHRITIS - USE DOSING CARD PROVIDED IN BOX 6) EMPAGLIFLOZIN 25MG TAB TAKE ONE TABLET BY MOUTH ONCE ACTIVE DAILY 7) GABAPENTIN 100MG CAP TAKE ONE CAPSULE BY MOUTH THREE ACTIVE TIMES A DAY FOR 7 DAYS, THEN TAKE TWO CAPSULES THREE TIMES A DAY FOR 7 DAYS, THEN TAKE THREE CAPSULES THREE TIMES A DAY FOR 16 DAYS 8) GLUCOSE SENSOR DEXCOM G7 USE 1 SENSOR DIRECTED ACTIVE EVERY 10 DAYS 9) HYDROCODONE 5MG/ACETAMINOPHEN 325MG TAB TAKE 1 TABLET ACTIVE BY MOUTH TWICE DAILY FOR PAIN (NEXT FILL 04/19/24) 10) INSULIN,ASPART(EQV-NOVLG)1 00UN/ML FLXPEN INJECT 25 ACTIVE UNITS SUBCUTANEOUSLY THREE TIMES A DAY INJECT 15 MINUTES BEFORE MEALS IF MEAL SKIPPED SKIP THE DOSE 11) INSULIN,GLARGINE-YFGN 100UNIT/ML PEN 3ML INJECT 46 ACTIVE UNITS SUBCUTANEOUSLY TWICE DAILY 12) LIDOCAINE 5% PATCH APPLY 1 PATCH TOPICALLY ONCE DAILY ACTIVE NEEDED (LEAVE PATCH ON FOR 12 HOURS, THEN REMOVE PATCH) 13) LISINOPRIL 5MG TAB TAKE ONE TABLET BY MOUTH ONCE ACTIVE DAILY TO CONTROL BLOOD PRESSURE 14) METFORMIN HCL 750MG 24HR SA TAB TAKE ONE TABLET BY ACTIVE MOUTH ONCE DAILY ACTIVE PROBLEMS Active problems - Computerized Problem List is the source for the followin. Abdominal pain 2. CLBP - chronic low back pain 3. Cervical radiculopathy 4. HTN - Hypertension ([facility] [id number]) 5. Diabetes Mellitus Type 2 ([facility] [id number]) 6. Allergic Rhinitis ([facility] [id number]) 7. Vitamin D Deficiency ([facility] [id number]) 8. Hyperlipidemia ([facility] [id number]) 9. Fatty liver 10. Fatigue 11. Edema of lower leg 12. Back pain 13. History of cholecystectomy 14. H/O: osteoarthritis 15. Depression 16. Onychomycosis of toenails 17. Knee pain (SNOMED CT 9612101130) 18. Osteoarthritis 19. Foot pain 20. Diabetic neuropathy 21. Erectile dysfunction 22. Type 2 diabetes mellitus 23. Flat Feet * 24. Depressive disorder (SNOMED CT 51231256) 25. History of male erectile disorder (SNOMED CT 856761065) 26. Disorder of urethra 27. PCP: Gm: [phone] 28. Knee: arthralgia 29. Ankle: arthralgia 30. Appendectomy When Done for Indicated Purpose at Time of Other Major Procedur 31. Hearing loss 32. Tinnitus 33. Arthritis, Traumatic, Primary Appointment length includes time with [place], completing clinical reminders, reviewing relevant information in EMR, review of PDMP, ordering appropriate tests, prescribing medications, coordinating care, and completing the medical record. /lora/ SABA KINCAID MD PHYSICIAN Signed: 04/06/2024 15:28 SABA KINCAID [place] [facility]
--- OUTSIDE RECORDS SUMMARY | 2024-09-30 08:40 | XMS_ITS ---
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 Name Role Phone CHANI RHODES Primary Care [...] to Policy Zayas [employer]ANCE [facility] February 03, 2022 [id number] EMERITA BAUTISTA PATIENT [facility] MEDICAID MEDICAID MEDIC AID Oct 06, 2013 MEDICAI D [id number] EMERITA BAUTISTA PATIENT MEDICARE (WNR) MEDICARE (M) PART A Mar 06, 2015 PART A [id number] [phone] EMERITA BAUTISTA PATIENT MEDICARE (WNR) MEDICARE (M) PART B Mar 06, 2015 PART B [id number] [phone] EMERITA BAUTISTA PATIENT MEDICARE (WNR) MEDICARE (M) PART B Mar 06, 2015 PART B [id number] EMERITA BAUTISTA PATIENT MEDICARE (WNR) MEDICARE (M) PART A Mar 06, 2015 PART A [id number] EMERITA BAUTISTA PATIENT MEDICARE (WNR) MEDICARE (M) PART B Mar 06, 2015 PART B [id number] EMERITA BAUTISTA PATIENT MEDICARE (WNR) MEDICARE (M) PART B Mar 06, 2015 PART B [id number] [phone] EMERITA BAUTISTA PATIENT MEDICARE (WNR) MEDICARE (M) PART A Mar 06, 2015 PART A [id number] [phone] EMERITA BAUTISTA PATIENT Selected Encounter This section includes the information on record at PR for the Encounter. Date/Time Encounter Type Encounter Description Reason Provider Source Mar 22, 2024 02:15 PM OFFICE O/P EST HI 40 MIN PAIN CLINIC ICD-10-CM M19.91 Primary osteoarthritis, unspecified site SANJIV,S ETH B IHBehzad Encounter Template Text not used by PR Assessments - Encounter Diagnoses This section includes the primary and secondary diagnoses documented for the Encounter. Date/Time Primary/Secondary Diagnosis Diagnosis Name Provider Source Mar 26, 2024 09:52 AM PRIMARY Primary osteoarthritis, unspecified site RAMON MORA B [place] [facility] [place] [facility] Mar 26, 2024 09:52 AM SECONDARY Low back pain, unspecified MARK MORAH B [facility] [place] [facility] Mar 26, 2024 09:52 AM SECONDARY Type 2 diabetes mellitus without complications MARK MORAH B [facility] Plan of Treatment: Future Appointments (+ 6 months) and Future Tests (+/- 45 days) The Plan of Treatment section includes future care activities for the patient from all PR treatmentfacilities. This section includes future appointments and future orders which are active, pending or scheduled. Future Appointments This section includes appointments that were scheduled to occur 6 months from the date of the Encounter, up to a maximum of 20 appointments. The data comes from all [place] treatment facilities. Appointment Date/Time Appointment Type Appointme nt Facility Name Apr 06, 2024 03:00 PM AMBULATORY - [facility]INE [facility] Apr 14, 2024 09:30 AM [facility] [place] [facility] Apr 19, 2024 03:00 PM [facility]ICINE [facility] Apr 20, 2024 09:00 AM AMBULATORY - MEDICINE [facility] [place] [facility] Apr 28, 2024 03:00 PM AMBULATORY - MEDICINE [facility] [place] [facility] May 21, 2024 09:45 AM AMBULATORY - MEDICINE [facility] [place] [facility] Jun 10, 2024 09:30 AM AMBULATORY - MEDICINE [facility] [place] [facility] Jun 23, 2024 08:00 AM AMBULATORY - [facility] [place] Jun 28, 2024 07:30 AM AMBULATORY - [facility] [place] Jul 01, 2024 02:45 PM AMBULATORY - MEDICINE [facility] [place] [facility] Jul 06, 2024 08:00 AM AMBULATORY - MEDICINE [facility] Jul 13, 2024 10:00 AM AMBULATORY - REHAB MEDICIN [facility] Jul 28, 2024 10:00 AM AMBULATORY - REHAB MED[facility]IN [facility] [place] Aug 05, 2024 09:30 AM AMBULATORY - MEDICINE [facility] [place] [facility] Aug 19, 2024 09:00 AM [facility] Aug 24, 2024 11:00 AM AMBULATORY - PSYCHIATRY [facility] [place] [facility] Aug 24, 2024 03:00 PM AMBULATORY - REHAB MEDICIN [facility] Aug 27, 2024 10:00 AM AMBULATORY - MEDICINE [place] [facility] [place] [facility] Sep 16, 2024 08:30 AM AMBULATORY - MEDICINE [facility] Lab Results: +/- 30 days of the encounter This section includes the Chemistry and Hematology Lab Results on record with PR for the patient. Radiology Reports and Pathology Reports are provided separately, in subsequent sections. Lab Results This section contains the Chemistry/Hematology Results that were resulted 30 days before or 30 daysafter the date of the Encounter. Date/Time Source Result Type Result - Unit Interpretation Reference Range Comment Mar 08, 2024 09:42 AM [place] BASIC METABOLIC PANEL (fasting) Specime n Type: SERUM No comment entered. Ordering Provider: VENKATA MARES Report Released Date/Time: Nov 28, 2023 09:56 AM Reporting Lab: [address] [address] Performing Lab: [address] [address] UREA NITROGEN 14 mg/dL 7-25 GLUCOSE 230 mg/dL H 65-100 SODIUM 139 mmol/L 135-145 POTASSIUM 4.2 mmol/L 3.5-5.0 CHLORIDE 108 mmol/L 100-110 CO2 22 meq/L 20-30 CREATININE, Serum 1.22 mg/dL 0.50-1.40 eGFR(CKD-EPI 2020) 68 mL/min >60 Mar 08, 2024 09:42 AM [place] LIPID PANEL FASTING Specimen Type: SERUM No comment entered. Ordering Provider: VENKATA MARES Report Released Date/Time: Nov 28, 2023 09:56 AM Reporting Lab: [address] [address] Performing Lab: [address] [address] CHOLESTEROL 126 mg/dL TRIGLYCERIDE 197 mg/dL H 0-150 LDL calculated 57 mg/dL 0-129 CHOL/HDL 4.2 HDL CHOLESTEROL 30 mg/dL L 40-60 Mar 08, 2024 09:42 AM [place] LIVER FUNCTION Specimen Type: SERUM No comment entered. Ordering Provider: VENKATA MARES Report Released Date/Time: Nov 28, 2023 09:56 AM Reporting Lab: [address] [address] Performing Lab: [address] [address] PROTEIN,TOTAL 7.7 g/dL 6.0-8.3 ALBUMIN 4.3 g/dL 3.5-5.0 ALKALINE PHOSPHATASE 90 U/L 40-150 AST 26 U/L 5-34 ALT 46 U/L BILIRUBIN, TOTAL 1.2 mg/dL 0.2-1.2 BILIRUBIN, DIRECT 0.4 mg/dL 0-0.5 Mar 08, 2024 09:42 AM [place] HEMOGLOBIN A1C PANEL Specimen Type: BLOOD Comment: [...] Nov 28, 2023 09:56 AM Reporting Lab: [address] [address] Performing Lab: [address] [address] HEMOGLOBIN A1C 7.4 H 4.0-5.6 Mar 08, 2024 09:42 AM [place] CBC Specimen Type: BLOOD No comment entered. Ordering Provider: VENKATA MARES Report Released Date/Time: Nov 28, 2023 09:56 AM Reporting Lab: [address] [address] Performing Lab: [address] [address] WBC 6.55 10*3/uL 4.50-11.00 RBC 5.57 10*6/uL 4.23-5.66 HGB 17.0 g/dL 12.8-17 HCT 50.1 39.2-50.4 MCV 89.9 fL 82-99 MCHC 33.9 g/dL 30.8-35.1 PLT 123 10*3/uL L 140-360 RDW-CV 12.9 12.0-16.0 MCH 30.5 pg 26.2-32.6 Mar 08, 2024 09:42 AM [place] VITAMIN D 25-OH (Therapy monitor) Speci men [...] For additional information, please refer to http://education .Audioair.Consulting Services/faq/QAV877 (This link is being provided for informational/ educational purposes only.) This test was developed and its analytical performance characteristics have been determined by [facility] [place] [place]. It has not been cleared or approved by the U.S. Food and Drug Administration. This assay has been validated pursuant to the CLIA regulations and is used for clinical purposes. This test was developed and its analytical performance characteristics have been determined by [facility] [place] [place]. It has not been cleared or approved by the U.S. Food and Drug Administration. This assay has been validated pursuant to the CLIA regulations and is used for clinical purposes. Test Performed by [facility], [facility], [address] [place] [address] Mohit Cazares M.D., Ph.D., Director of Laboratories , CLIA [id number] TEST PERFORMED AT: , Ordering Provider: VENKATA MARES Report Released Date/Time: Mar 08, 2024 09:16 AM Reporting Lab: [address] [address] Performing Lab: [address] [address] VITAMIN D, 25-OH, TOTAL 19 ng/mL L 30-100 VITAMIN D, 25-OH, D3 19 ng/mL VITAMIN D, 25-OH, D2 <4 ng/mL Mar 08, 2024 09:42 AM [place] AMYLASE Specimen Type: SERUM No comment entered. Ordering Provider: VENKATA MARES Report Released Date/Time: Mar 08, 2024 09:34 AM Reporting Lab: [address] [address] Performing Lab: [address] [address] AMYLASE 67 U/L 25-125 Mar 08, 2024 09:42 AM [place] LIPASE Specimen Type: SERUM No comment entered. Ordering Provider: VENKATA MARES Report Released Date/Time: Mar 08, 2024 09:34 AM Reporting Lab: [facility] [address] [address] Performing Lab: [facility] [address] [address] LIPASE 53 U/L 8-82 Social History: Smoking Status (Most current) and Tobacco Use (All prior to encounter date) This section includes the most current, and the historical, smoking and tobacco- related health factors from the PR facility where the Encounter took place. Current Smoking Status This section includes the most current smoking, or tobacco-related health factor, from the PR facility where the Encounter took place. Date/Time Current Smoking Status Comment Facil ity Mar 11, 2023 08:30 AM PR-TOBACCO QUIT 15 YRS OR MORE [facility] Tobacco Use History This section includes a history of the smoking, or tobacco-related health factors, that were collected on or before the date of the Encounter. The data comes from the PR facility where the Encounter took place. Date/Time Smoking Status/Tobacco Use Comment F acility Mar 11, 2023 08:30 AM PR-TOBACCO QUIT 15 YRS OR MORE [facility] Dec 27, 2020 02:00 PM PR-TOBACCO FORMER USER [facility] Dec 27, 2020 02:00 PM PR-TOBACCO QUIT 15 YRS OR MORE [facility] Advance Directives: All historical and current Section Date Range: From patient's date of to the date document was created. This section includes ALL of a patient's completed or amended PR Advance and Rescinded Directives. The entries below indicate that a directive exists for the patient, but an actual copy is not included with this document. The data comes from all PR facilities. Date Advance Directives Provider Source May [...] the Encounter. The data comes from all PR treatment facilities. Date/Time Radiology Report Provider Source Mar 08, 2024 11:29 AM ABDOMEN (2 VIEWS): EMERITA BAUTISTA [id number] -1965 M Exm Date: MAR 08, 2024@11:29 Req Phys: STELEA,VENKATA F Pat Loc: CWM/SO/PACT EIGHT WH (Req'g Lo Img Loc: [facility]/BUILDING 1 Service[facility] , (Case 37 COMPLETE) ABDOMEN (2 VIEWS) (RAD Detailed) CPT:94779 Reason for Study: abdominal discomfort Clinical History: nausea, vomiting Report Status: Verified Date Reported: MAR 08, 2024 Date Verified: MAR 08, 2024 Events Traffic Controller E-Sig:/ES/TERESA BLOUNT JR Report: Study: KUB supine [...] Primary Interpreting Staff: TERESA BLOUNT JR, Radiologist (Events Traffic Controller) /TERESA AGUILAR JR [facility] [place] [facility] Mar 08, 2024 11:07 AM ABDOMINAL ULTRASOUND: EMERITA BAUTISTA [id number] -[id number] M Exm Date: MAR 08, 2024@11:07 Req Phys: STELEA,VENKATA F Pat Loc: CWM/SO/PACT EIGHT WH (Req'g Lo Img Loc: ULTRASOUND Service: Unknown [place] [facility] [place] [facility] , (Case 32 COMPLETE) ULTRASOUND ABDOMEN (US Detailed) CPT:73400 Reason for Study: abdominal discomfort Clinical History: nausea, vomiting Report Status: Verified Date Reported: MAR 08, 2024 Date Verified: MAR 08, 2024 Events Traffic Controller E-Sig:/ES/TERESA BLOUNT JR Report: Study: Abdomen ultrasound. [...] BLOUNT JR, Radiologist ([place]) /TERESA AGUILAR JR [facility] Encounter Notes: All associated encounter notes This section contains the clinical notes associated to the Encounter. Date/Time Encounter Note(s) Provider Source Mar 22, 2024 02:48 PM ACCOUNTING OF DISCLOSURES NOTE: LOCAL TITLE: STATE PRESCRIPTION DRUG MONITORING PROGRAM STANDARD TITLE: ACCOUNTING OF DISCLOSURES NOTE DATE OF NOTE: MAR 22, 2024@14:48:45 ENTRY DATE: MAR 22, 2024@14:48:45 AUTHOR: RAMON MORA EXP COSIGNER: URGENCY: STATUS: COMPLETED This PDMP query was submitted by Ramon Mora MD. The clinical justification for this PDMP query is to review controlled substances prescribed outside of the [facility], and any additional information that may become available, as an important component of standard clinical care, and in accordance with [facility] policy. Patient information was shared with the PDMP Appriss [place]. No prescription(s) for controlled substances outside the [facility] were found in the last 90 days. /lora/ RAMON MORA MD PHYSICIAN Signed: 03/22/2024 14:49 RAMON MORA [facility] [place] [facility] Mar 22, 2024 02:08 PM PAIN MEDICINE OUTPATIENT NOTE: LOCAL TITLE: PAIN CLINIC NOTE STANDARD TITLE: PAIN MEDICINE OUTPATIENT NOTE DATE OF NOTE: MAR 22, 2024@14:08 ENTRY DATE: MAR 22, 2024@14:08:11 AUTHOR: RAMON MORA EXP COSIGNER: URGENCY: STATUS: COMPLETED CURRENT ======= Pain remains insufferable: knee, hip, walking with cane. Vicodin did not help. 2 at night helped relax him and improved sleep. Stayed in bed for Father's Day. Feels like he cannot work anymore. Had meltdown at work from pain. 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 FAMILY HISTORY SUBSTANCE USE HISTORY Tobacco: None ETOH: None; stopped 20 years ago. Marijuana: None. Illicit drugs: Past, including pills. ASSESSMENT and PLAN 58 year old [employer] [place], 70% service-connected for musculoskeletal injuries, with DDD and DJD affecting his low back and right knee; he has mid-back and neck pain also. 03/22/2024 entry on 03/26) Long discussion about possible trial of Butrans. He needs to discuss with . I offered to make it a conference call. She was not available during appt but we all spoke by conference call on 03/24. Shasta, a counselor at the [facility], was opposed to the trial of Butrans. She requested trial of Gabapentin tid. Previous trial was at low dose. This may be beneficial Will evaluate response to elevating dose of gabapentin. ORTHO [place] needs left knee replacement. MOOD, QUALITY of LIFE Pain effects his enjoyment of family, he is not able to be active, he would like to retire due to pain. His mood is depressed because of pain. [place] and I formulated the plan through shared medical-decision making. repeated the plan back to me and had no further questions at end of appointment. APPOINTMENT LENGTH: 45 minutes FOLLOW-UP: 2 weeks 03/22/2024 14:15 CWM/NO/PAIN MD CLINIC 04/14/2024 09:30 [...] SENSOR DIRECTED ACTIVE EVERY 10 DAYS 7) INSULIN,ASPART(EQV-NOVLG)1 00UN/ML FLXPEN INJECT 25 ACTIVE UNITS SUBCUTANEOUSLY THREE TIMES A DAY INJECT 15 MINUTES BEFORE MEALS IF MEAL SKIPPED SKIP THE DOSE 8) INSULIN,GLARGINE-YFGN 100UNIT/ML PEN 3ML INJECT 46 ACTIVE UNITS SUBCUTANEOUSLY TWICE DAILY 9) LIDOCAINE 5% PATCH APPLY 1 PATCH [...] 3. Cervical radiculopathy 4. HTN - Hypertension ([facility] [id number]) 5. Diabetes Mellitus Type 2 ([facility] [id number]) 6. Allergic Rhinitis ([facility] [id number]) 7. Vitamin D Deficiency ([facility] [id number]) 8. Hyperlipidemia ([facility] [id number]) 9. Fatty liver 10. Fatigue 11. Edema of lower leg 12. Back pain 13. History of cholecystectomy 14. H/O: osteoarthritis 15. Depression 16. Onychomycosis of toenails 17. Knee pain ([facility] [id number]) 18. Osteoarthritis 19. Foot pain 20. Diabetic neuropathy 21. Erectile dysfunction 22. Type 2 diabetes mellitus 23. Flat Feet * 24. Depressive disorder ([facility] [id number]) 25. History of male erectile disorder ([facility] [id number]) 26. Disorder of urethra 27. PCP: Gm: [phone] 28. Knee: arthralgia 29. Ankle: arthralgia 30. Appendectomy When Done for Indicated Purpose at Time of Other Major Procedur 31. Hearing loss 32. Tinnitus 33. Arthritis, Traumatic, Primary Appointment length includes time with [place], completing clinical reminders, reviewing relevant information in EMR, review of PDMP, ordering appropriate tests, prescribing medications, coordinating care, and completing the medical record. /lora/ RAMON MORA MD PHYSICIAN Signed: 03/26/2024 09:52 RAMON MORA [facility]
--- OUTSIDE RECORDS SUMMARY | 2024-09-30 08:40 | XMS_ITS | Encounter Summary ---
Author Name [facility] [place] [facility] [place] Address [address] [place] [address] Care Team Providers Care Conductor Pullman Name Role Phone CHANI RHODES Primary Care [...] [facility] H[facility] February 03, 2022 [id number] EMERITA BAUTISTA PATIENT [facility] MEDICAID MEDICAID MEDIC AID Oct 06, 2013 MEDICAI D [id number] EMERITA BAUTISTA PATIENT MEDICARE (WNR) MEDICARE (M) PART A Mar 06, 2015 PART A [id number] EMERITA BAUTISTA PATIENT MEDICARE (WNR) MEDICARE (M) PART B Mar 06, 2015 PART B [id number] EMERITA BAUTISTA PATIENT MEDICARE (WNR) MEDICARE (M) PART B Mar 06, 2015 PART B [id number] EMERITA BAUTISTA PATIENT MEDICARE (WNR) MEDICARE (M) PART A Mar 06, 2015 PART A [id number] [phone] EMERITA BAUTISTA PATIENT MEDICARE (WNR) MEDICARE (M) PART B Mar 06, 2015 PART B [id number] EMERITA BAUTISTA PATIENT MEDICARE (WNR) MEDICARE (M) PART B Mar 06, 2015 PART B [id number] EMERITA BAUTISTA PATIENT MEDICARE (WNR) MEDICARE (M) PART A Mar 06, 2015 PART A [id number] EMERITA BAUTISTA PATIENT Selected Encounter This section includes the information on record at [place] for the Encounter. Date/Time Encounter Type Encounter Description Reason Pro vider Source Mar 19, 2024 08:36 AM Outpatient Encounter PAIN CLINIC [facility] Encounter Template Text not used by [place] Plan of Treatment: Future Appointments (+ 6 months) and Future Tests (+/- 45 days) The Plan of Treatment section includes future care activities for the [facility] [place] [facility] This section includes future appointments and future orders which are active, pending or scheduled. Future Appointments This section includes appointments that were scheduled to occur 6 months from the date of the Encounter, up to a maximum of 20 appointments. The data comes from all [place] treatment facilities. Appointment Date/Time Appointment Type Appointme nt Facility Name Mar 22, 2024 02:15 PM [place] [facility] [place] [facility] Apr 06, 2024 03:00 PM [place] [facility] [place] [facility] Apr 14, 2024 09:30 AM [place] [facility] [place] [facility] Apr 19, 2024 03:00 PM [facility] Apr 20, 2024 09:00 AM [place] [facility] [place] [facility] Apr 28, 2024 03:00 PM [place] [facility] [place] [facility] May 21, 2024 09:45 AM [place] [facility] [place] [facility] Jun 10, 2024 09:30 AM [place] [facility] [place] [facility] Jun 23, 2024 08:00 AM [facility] Jun 28, 2024 07:30 AM [facility] [place] Jul 01, 2024 02:45 PM [place] [facility] [place] [facility] Jul 06, 2024 08:00 AM [facility] Jul 13, 2024 10:00 AM AMBULATORY - [facility] [place] Jul 28, 2024 10:00 AM [facility] [place] Aug 05, 2024 09:30 AM [facility] [place] [facility] [place] [facility] Aug 19, 2024 09:00 AM [facility] Aug 24, 2024 11:00 AM AMBULATORY - PSYCHIATRY [facility] [place] [facility] Aug 24, 2024 03:00 PM [facility]ORY - [facility] [place] Aug 27, 2024 10:00 AM [place] [facility] [place] [facility] Sep 16, 2024 08:30 AM AMBULATORY - MEDICINE [facility] Lab Results: +/- 30 days of the encounter This section includes the Chemistry and Hematology Lab Results on record with [place] for the patient. Radiology Reports and Pathology Reports are provided separately, in subsequent sections. Lab Results This section contains the Chemistry/Hematology Results that were resulted 30 days before or 30 daysafter the date of the Encounter. Date/Time Source Result Type Result - Unit Interpretation Reference Range Comment Mar 08, 2024 09:42 AM [place] LIPID PANEL FASTING Specimen Type: SERUM No comment entered. Ordering Provider: VENKATA MARES Report Released Date/Time: Nov 28, 2023 09:56 AM Reporting Lab: [place] [facility] [address] [address] Performing Lab: [facility] [facility] [address] CHOLESTEROL 126 mg/dL TRIGLYCERIDE 197 mg/dL H 0-150 LDL calculated 57 mg/dL 0-129 CHOL/HDL 4.2 HDL CHOLESTEROL 30 mg/dL L 40-60 Mar 08, 2024 09:42 AM [place] BASIC METABOLIC PANEL (fasting) Specime n Type: SERUM No comment entered. Ordering Provider: VENKATA MARES Report Released Date/Time: Nov 28, 2023 09:56 AM Reporting Lab: [facility] [address] [facility] [address] Performing Lab: [address] [address] UREA NITROGEN 14 mg/dL 7-25 GLUCOSE 230 mg/dL H 65-100 SODIUM 139 mmol/L 135-145 POTASSIUM 4.2 mmol/L 3.5-5.0 CHLORIDE 108 mmol/L 100-110 CO2 22 meq/L 20-30 CREATININE, Serum 1.22 mg/dL 0.50-1.40 eGFR(CKD-EPI 2020) 68 mL/min >60 Mar 08, 2024 09:42 AM [place] HEMOGLOBIN A1C PANEL Specimen Type: BLOOD Comment: [...] Nov 28, 2023 09:56 AM Reporting Lab: [address] [address] Performing Lab: [address] [address] HEMOGLOBIN A1C 7.4 H 4.0-5.6 Mar 08, 2024 09:42 AM [place] LIVER FUNCTION Specimen Type: SERUM No comment entered. Ordering Provider: VENKATA MARES Report Released Date/Time: Nov 28, 2023 09:56 AM Reporting Lab: [facility] [address] [facility] [address] Performing Lab: [address] [address] PROTEIN,TOTAL 7.7 g/dL 6.0-8.3 ALBUMIN 4.3 g/dL 3.5-5.0 ALKALINE PHOSPHATASE 90 U/L 40-150 AST 26 U/L 5-34 ALT 46 U/L BILIRUBIN, TOTAL 1.2 mg/dL 0.2-1.2 BILIRUBIN, DIRECT 0.4 mg/dL 0-0.5 Mar 08, 2024 09:42 AM [place] CBC Specimen Type: BLOOD No comment entered. Ordering Provider: VENKATA MARES Report Released Date/Time: Nov 28, 2023 09:56 AM Reporting Lab: [facility] [address] [facility] [address] Performing Lab: [facility] [address] [facility] [address] WBC 6.55 10*3/uL 4.50-11.00 RBC 5.57 10*6/uL 4.23-5.66 HGB 17.0 g/dL 12.8-17 HCT 50.1 39.2-50.4 MCV 89.9 fL 82-99 MCHC 33.9 g/dL 30.8-35.1 PLT 123 10*3/uL L 140-360 RDW-CV 12.9 12.0-16.0 MCH 30.5 pg 26.2-32.6 Mar 08, 2024 09:42 AM [place] VITAMIN D 25-OH (Therapy monitor) Speci men [...] For additional information, please refer to http://education .[employer]/faq/QVF321 (This link is being provided for informational/ educational purposes only.) This test was developed and its analytical performance characteristics have been determined by [facility] [place], [place]. It has not been cleared or approved by the U.S. Food and Drug Administration. This assay has been validated pursuant to the CLIA regulations and is used for clinical purposes. This test was developed and its analytical performance characteristics have been determined by [facility] [place], [place]. It has not been cleared or approved by the U.S. Food and Drug Administration. This assay has been validated pursuant to the CLIA regulations and is used for clinical purposes. Test Performed by [facility], [place] [facility], [address] [place], [place] Mohit Cazares M.D., Ph.D., Director of Laboratories , CLIA [id number] TEST PERFORMED AT: , Ordering Provider: VENKATA MARES Report Released Date/Time: Mar 08, 2024 09:16 AM Reporting Lab: [facility] [address] [facility] [address] Performing Lab: [facility] [address] [address] VITAMIN D, 25-OH, TOTAL 19 ng/mL L 30-100 VITAMIN D, 25-OH, D3 19 ng/mL VITAMIN D, 25-OH, D2 <4 ng/mL Mar 08, 2024 09:42 AM [place] AMYLASE Specimen Type: SERUM No comment entered. Ordering Provider: VENKATA MARES Report Released Date/Time: Mar 08, 2024 09:34 AM Reporting Lab: [facility] [address] [facility] [address] Performing Lab: [address] [address] AMYLASE 67 U/L 25-125 Mar 08, 2024 09:42 AM [place] LIPASE Specimen Type: SERUM No comment entered. Ordering Provider: VENKATA MARES Report Released Date/Time: Mar 08, 2024 09:34 AM Reporting Lab: [facility] [address] [facility] [address] Performing Lab: [address] [address] LIPASE 53 U/L 8-82 Social History: Smoking Status (Most current) and Tobacco Use (All prior to encounter date) This section includes the most current, and the historical, smoking and tobacco- related health factors from the [place] facility where the Encounter took place. Current Smoking Status This section includes the most current smoking, or tobacco-related health factor, from the [place] facility where the Encounter took place. Date/Time Current Smoking Status Comment Ana ity Mar 11, 2023 08:30 AM [place]-TOBACCO FORMER USER [place] [facility] [place] [facility] Tobacco Use History This section includes a history of the smoking, or tobacco-related health factors, that were collected on or before the date of the Encounter. The data comes from the [place] facility where the Encounter took place. Date/Time Smoking Status/Tobacco Use Comment F acility Mar 11, 2023 08:30 AM VA-TOBACCO QUIT 15 YRS OR MORE [facility] [facility] [place] [facility] Dec 27, 2020 02:00 PM VA-TOBACCO FORMER USER [facility] [facility] [place] [facility] Dec 27, 2020 02:00 PM VA-TOBACCO QUIT 15 YRS OR MORE [facility] [facility] [place] [facility] Advance Directives: All historical and current Section Date Range: From patient's date of to the date document was created. This section includes ALL of a patient's completed or amended [place] Advance and Rescinded Directives. The entries below indicate that a directive exists for the patient, but an actual copy is not included with this document. The data comes from all [place] facilities. Date Advance Directives Provider Source May [...] the Encounter. The data comes from all [place] treatment facilities. Date/Time Radiology Report Provider Source Mar 08, 2024 11:29 AM ABDOMEN (2 VIEWS): EMERITA BAUTISTA [id number] -1965 M [facility] Date: MAR 08, 2024@11:29 Req Phys: VENKATA MARES Pat Loc: CWM/SO/PACT EIGHT WH (Req'g Lo Img Loc: [facility]/BUILDING 1 Service: Unknown [place] [facility] [place] [facility] , (Case 37 COMPLETE) ABDOMEN (2 VIEWS) (RAD Detailed) CPT:01786 Reason for Study: abdominal discomfort Clinical History: nausea, vomiting Report Status: Verified Date Reported: MAR 08, 2024 Date Verified: MAR 08, 2024 Shirt Cleaner E-Sig:/ES/TERESA BLOUNT JR Report: Study: KUB supine [...] Primary Interpreting Staff: TERESA BLOUNT JR, Radiologist (Shirt Cleaner) /EAD TERESA BLOUNT JR [facility] Mar 08, 2024 11:07 AM ABDOMINAL ULTRASOUND: EMERITA BAUTISTA [id number] -[id number] M Exm Date: MAR 08, 2024@11:07 Req Phys: VENKATA MARES Pat Loc: CWM/SO/PACT EIGHT WH (Req'g Lo Img Loc: ULTRASOUND Service: Unknown [facility] , (Case 32 COMPLETE) ULTRASOUND ABDOMEN (US Detailed) CPT:75538 Reason for Study: abdominal discomfort Clinical History: nausea, vomiting Report Status: Verified Date Reported: MAR 08, 2024 Date Verified: MAR 08, 2024 Shirt Cleaner E-Sig:/ES/TERESA BLOUNT JR Report: Study: Abdomen ultrasound. [...] Primary Interpreting Staff: TERESA BLOUNT JR, Radiologist (Shirt Cleaner) /TERESA AGUILAR JR [facility] Encounter Notes: All associated encounter notes This section contains the clinical notes associated to the Encounter. Date/Time Encounter Note(s) Provider Source Mar 19, 2024 08:36 AM TELEPHONE ENCOUNTE R NOTE: LOCAL TITLE: TELEPHONE NOTE/SPECIALTY CLINIC STANDARD TITLE: TELEPHONE ENCOUNTER NOTE DATE OF NOTE: MAR 19, 2024@08:36 ENTRY DATE: MAR 19, 2024@08:36:35 AUTHOR: NELLA CIFUENTES EXP COSIGNER: URGENCY: STATUS: COMPLETED Called and spoke with pt to remind them that they have a FTF appt with the Pain clinic on 03/22/2024 @ 1415 . Location was confirmed /lora/ NELLA CIFUENTES ADVANCED EVENTS SPECIALIST Signed: 03/19/2024 08:38 NELLA CIFUENTES [facility]
--- OUTSIDE RECORDS SUMMARY | 2024-09-30 08:40 | XMS_ITS | Encounter Summary ---
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 Role Phone CHANI RHODES Primary [...] [facility] H[facility] February 03, 2022 [id number] EMERITA BAUTISTA PATIENT [facility] [address] MEDICAID MEDICAID MEDIC AID Oct 06, 2013 MEDICAI D [id number] EMERITA BAUTISTA PATIENT MEDICARE (WNR) MEDICARE (M) PART A Mar 06, 2015 PART A [id number] [phone] EMERITA BAUTISTA PATIENT MEDICARE (WNR) MEDICARE (M) PART B Mar 06, 2015 PART B [id number] EMERITA BAUTISTA PATIENT MEDICARE (WNR) MEDICARE (M) PART B Mar 06, 2015 PART B [id number] EMERITA BAUTISTA PATIENT MEDICARE (WNR) MEDICARE (M) PART A Mar 06, 2015 PART A [id number] EMERITA BAUTISTA PATIENT MEDICARE (WNR) MEDICARE (M) PART B Mar 06, 2015 PART B [id number] EMERITA BAUTISTA PATIENT MEDICARE (WNR) MEDICARE (M) PART B Mar 06, 2015 PART B [id number] EMERITA BAUTISTA PATIENT MEDICARE (WNR) MEDICARE (M) PART A Mar 06, 2015 PART A [id number] [phone] EMERITA BAUTISTA PATIENT Selected Encounter This section includes the information on record at [place] for the Encounter. Date/Time Encounter Type Encounter Description Reason Pro vider Source Apr 12, 2024 02:57 PM Outpatient Encounter PRIMARY CARE/MEDICINE IHE Encounter Template Text not used by [place] Plan of Treatment: Future Appointments (+ 6 months) and Future Tests (+/- 45 days) The Plan of Treatment section includes future care activities for the patient from all [place] [facility]. This section includes future appointments and future orders which are active, pending or scheduled. Future Appointments This section includes appointments that were scheduled to occur 6 months from the date of the Encounter, up to a maximum of 20 appointments. The data comes from all [place] treatment facilities. Appointment Date/Time Appointment Type Appointme nt Facility Name Apr 14, 2024 09:30 AM AM[place]ULATORY - [place]ICINE [place] [facility] [place] [facility] Apr 19, 2024 03:00 PM AMBULATORY - MEDICINE [facility] Apr 20, 2024 09:00 AM AM[place]ULATORY [place]IC[place] [facility] [place] [facility] Apr 28, 2024 03:00 PM AMBULATORY [place]ICINE [place] [facility] [place] [facility] May 21, 2024 09:45 AM AMBULATORY - [place]ICINE [place] [facility] [place] [facility] Jun 10, 2024 09:30 AM AMBULATORY [place]ICINE [place] [facility] [place] [facility] Jun 23, 2024 08:00 AM AMBULATORY - REHAB MEDICIN [facility] Jun 28, 2024 07:30 AM AMBULATORY - REHAB MEDICIN [facility] Jul 01, 2024 02:45 PM AMBULATORY - [place]ICINE [place] [facility] [place] [facility] Jul 06, 2024 08:00 AM AM[facility]ATORY - [facility]ICINE [facility] Jul 13, 2024 10:00 AM AMBULATORY - REHAB MEDICIN [facility] Jul 28, 2024 10:00 AM AMBULATORY - [facility] Aug 05, 2024 09:30 AM AM[place] [facility] [place] [facility] Aug 19, 2024 09:00 AM AM[facility]ULATORY - MEDIC[facility] Aug 24, 2024 11:00 AM AMBULATORY - PSYCHIATRY [facility] [place] [facility] Aug 24, 2024 03:00 PM AMBULATORY - REHAB MEDICIN [facility] Aug 27, 2024 10:00 AM AMBULATORY - MEDICINE [place] [facility] [place] [facility] Sep 16, 2024 08:30 AM AMBULATORY - MEDICINE [facility] Sep 23, 2024 03:30 PM AMBULATORY - MEDICINE [place] [facility] [place] [facility] Sep 24, 2024 12:00 PM AMBULATORY - [place]ICINE [place] [facility] [place] [facility] Social History: Smoking Status (Most current) and Tobacco Use (All prior to encounter date) This section includes the most current, and the historical, smoking and tobacco- related health factors from the [place] facility where the Encounter took place. Current Smoking Status This section includes the most current smoking, or tobacco-related health factor, from the [place] facility where the Encounter took place. Date/Time Current Smoking Status Comment Facil ity Mar 11, 2023 08:30 AM [facility] Tobacco Use History This section includes a history of the smoking, or tobacco-related health factors, that were collected on or before the date of the Encounter. The data comes from the [place] facility where the Encounter took place. Date/Time Smoking Status/Tobacco Use Comment F acility Mar 11, 2023 08:30 AM VA-TOBACCO QUIT 15 YRS OR MORE [place] [facility] [place] [facility] Dec 27, 2020 02:00 PM VA-TOBACCO FORMER USER [place] [facility] [place] [facility] Dec 27, 2020 02:00 PM VA-TOBACCO QUIT 15 YRS OR MORE [facility] Advance Directives: All historical and current Section Date Range: From patient's date of to the date document was created. This section includes ALL of a patient's completed or amended [place] Advance and Rescinded Directives. The entries below indicate that a directive exists for the patient, but an actual copy is not included with this document. The data comes from all [place] facilities. Date Advance Directives Provider Source May [...] the Encounter. The data comes from all [place] treatment facilities. Date/Time Radiology Report Provider Source Apr 27, 2024 08:46 AM KNEE 3 VIEWS (RIGH T): EMERITA BAUTISTA [id number] -[id number] M Ex Date: APR 27, 2024@08:46 Req Phys: VENKATA MARES Pat Loc: CWM/SO/PACT EIGHT WH (Req'g Lo Img Loc: [facility] 1 Service: Unknown [place] [facility] , (Case 62 COMPLETE) KNEE 1 OR 2 VIEWS (RIGHT) (RAD Detailed) CPT:91690 Proc Modifiers : BILATERAL EXAM Reason for Study: chronic pain (Case 63 COMPLETE) KNEES BILATERAL STANDING (RAD Detailed) CPT:86730 (Case 64 COMPLETE) KNEE 1 OR 2 VIEWS (LEFT) (RAD Detailed) CPT:33786 Proc Modifiers : BILATERAL EXAM Clinical History: Report Status: Verified Date Reported: APR 27, 2024 Date Verified: APR 27, 2024 Meal Grinder Tender E-Sig:/ES/TERESA BLOUNT JR Report: Study: AP weight-bearing [...] Primary Interpreting Staff: TERESA BLOUNT JR, Radiologist (Meal Grinder Tender) /TERESA AGUILAR JR [facility] Encounter Notes: All associated encounter notes This section contains the clinical notes associated to the Encounter. Date/Time Encounter Note(s) Provider Source Apr 16, 2024 01:06 PM ADDENDUM: LOCAL TITLE: Addendum STANDARD TITLE: ADDENDUM DATE OF NOTE: APR 16, 2024@13:06:48 ENTRY DATE: APR 16, 2024@13:06:49 AUTHOR: VENKATA MARES COSIGNER: URGENCY: STATUS: COMPLETED The has an appointment on April 19 Please inform the [place] /lora/ VENKATA MARES MD PRIMARY CARE PHYSICIAN Signed: 04/16/2024 13:07 Receipt Acknowledged By: 04/20/2024 13:54 /lora/ NIMCO SYKES RN-JUSTIN REGISTERED NURSE --- Original Document --- 04/12/24 WALK-IN NOTE PRIMARY CARE (T): <====Click to Start Advanced Medical Support [place] presents to the Primary Care clinic with the following request: [ ]Medication Renewal/Refill [ ]Consultation with Team RN [ ]Symptoms [ X ]Other The [place] states they are: [ ]Waiting [ X ]Not Waiting No Walk in visit scheduled with PACT Nurse [ X ] At this encounter the 's demographics were verified. [ X ] At this encounter the [place]'s Insurance information was verified. [ X ] At this encounter the below scheduled visits for the [place] were discussed and appointment reminder card was offered. Future appointments: 04/14/2024 09:30 CWM/SO/PHARM/PACT 2 04/19/2024 15:00 CWM/SO/PACT EIGHT 04/20/2024 09:00 NHM/OPTOMETRY/WELSH/ 05/21/2024 09:45 CWM/NO/PAIN MD CLINIC [place] dropped off Medical Certification of Illnessform for Residential Customers in [place] for [employer]. [place] is requesting to have form filled out and signed. [employer] form placed in provider's box for review. /lora/ [place] VARMA Signed: 04/12/2024 15:03 Receipt Acknowledged By: 04/13/2024 21:29 /lora/ NIMCO SYKES RN-JUSTIN REGISTERED NURSE 04/12/2024 16:08 /lora/ BENJAMIN YOU LPN LICENSED PRACTICAL NURSE 04/13/2024 ADDENDUM STATUS: COMPLETED Please scan 's [employer] form into pact rightfax folder for pcp review and completion if appropriate /lora/ NIMCO SYKES RN-JUSTIN REGISTERED NURSE Signed: 04/13/2024 21:30 Receipt Acknowledged By: 04/14/2024 09:01 /lora/ CLAUDE VIZCAINO ADVANCED FINE SANDER 04/13/2024 ADDENDUM STATUS: COMPLETED [place] currently has forms available for review and completion in pact rightfax folder including [employer] form dropped off 04/12/24 and fmla forms dropped off 03/15/24. /lora/ NIMCO SYKES RN-JUSTIN REGISTERED NURSE Signed: 04/13/2024 21:32 Receipt Acknowledged By: 04/16/2024 13:06 /lora/ VENKATA MARES MD PRIMARY CARE PHYSICIAN 04/14/2024 ADDENDUM STATUS: COMPLETED THIS MOBILE QA TESTER SCANNED [employer] MEDICAL CERTIFICATION OF ILLNESS FORM FOR RESIDENTIAL CUSTOMERS IN [place] FORM INTO CWM/SO/PACT EIGHT RIGHTFAX FOLDER. /lora/ CLAUDE VIZCAINO ADVANCED FINE SANDER Signed: 04/14/2024 09:02 Receipt Acknowledged By: 04/14/2024 16:11 /es/ NIMCO SYKES RN- REGISTERED NURSE 04/14/2024 13:21 /es/ MANDO COOLEY LPN Licensed Practical Nurse 04/16/2024 12:52 /lora/ VENKATA MARES MD PRIMARY CARE PHYSICIAN 04/16/2024 ADDENDUM STATUS: COMPLETED Please inform the he needs a [facility]he needs to fill out only his name . /bucky MARES MD PRIMARY CARE PHYSICIAN Signed: 04/16/2024 12:54 Receipt Acknowledged By: 04/19/2024 10:13 /lora/ CLAUDE VIZCAINO ADVANCED FINE SANDER VENKATA MARES [facility] Apr 16, 2024 12:52 PM ADDENDUM: LOCAL TITLE: Addendum STANDARD TITLE: ADDENDUM DATE OF NOTE: APR 16, 2024@12:52:13 ENTRY DATE: APR 16, 2024@12:52:13 AUTHOR: VENKATA MARES EXP COSIGNER: URGENCY: STATUS: COMPLETED Please inform the he needs a [facility]he needs to fill out only his name . /bucky MARES MD PRIMARY CARE PHYSICIAN Signed: 04/16/2024 12:54 Receipt Acknowledged By: 04/19/2024 10:13 /lora/ CLAUDE VIZCAINO ADVANCED FINE SANDER --- Original Document --- 04/12/24 WALK-IN NOTE PRIMARY CARE (T): <====Click to Start Advanced Medical Support presents to the Primary Care clinic with the following request: [ ]Medication Renewal/Refill [ ]Consultation with Team RN [ ]Symptoms [ X ]Other The [place] states they are: [ ]Waiting [ X ]Not Waiting No Walk in visit scheduled with PACT Nurse [ X ] At this encounter the 's demographics were verified. [ X ] At this encounter the 's Insurance information was verified. [ X ] At this encounter the below scheduled visits for the [place] were discussed and appointment reminder card was offered. Future appointments: 04/14/2024 09:30 CWM/SO/PHARM/PACT 2 04/19/2024 15:00 CWM/SO/PACT EIGHT 04/20/2024 09:00 NHM/OPTOMETRY/WELSH/ 05/21/2024 09:45 CWM/NO/PAIN MD CLINIC [place] dropped off Medical Certification of Illnessform for Residential Customers in [place] for [employer]. [place] is requesting to have form filled out and signed. [employer] form placed in provider's box for review. /lora/ [place] VARMA Signed: 04/12/2024 15:03 Receipt Acknowledged By: 04/13/2024 21:29 /es/ NIMCO SYKES RN-JUSTIN REGISTERED NURSE 04/12/2024 16:08 /es/ BENJAMIN YOU LPN LICENSED PRACTICAL NURSE 04/13/2024 ADDENDUM STATUS: COMPLETED Please scan [place]'s [employer] form into pact rightfax folder for pcp review and completion if appropriate /lora/ NIMCO SYKES RN-JUSTIN REGISTERED NURSE Signed: 04/13/2024 21:30 Receipt Acknowledged By: 04/14/2024 09:01 /es/ CLAUDE VIZCAINO ADVANCED FINE SANDER 04/13/2024 ADDENDUM STATUS: COMPLETED currently has forms available for review and completion in pact rightfax folder including [employer] form dropped off 04/12/24 and fmla forms dropped off 03/15/24. /lor[place]/ NIMCO SYKES RN-JUSTIN REGISTERED NURSE Signed: 04/13/2024 21:32 Receipt Acknowledged By: 04/16/2024 13:06 /es/ VENKATA MARES MD PRIMARY CARE PHYSICIAN 04/14/2024 ADDENDUM STATUS: COMPLETED THIS MOBILE QA TESTER SCANNED [employer] MEDICAL CERTIFICATION OF ILLNESS FORM FOR RESIDENTIAL CUSTOMERS IN [place] FORM INTO CWM/SO/PACT EIGHT RIGHTFAX FOLDER. /lora/ CLAUDE VIZCAINO ADVANCED FINE SANDER Signed: 04/14/2024 09:02 Receipt Acknowledged By: 04/14/2024 16:11 /lora/ NIMCO SYKES REGISTERED NURSE 04/14/2024 13:21 /lora/ MANDO COOLEY LPN Licensed Practical Nurse 04/16/2024 12:52 /lora/ VENKATA MARES MD PRIMARY CARE PHYSICIAN 04/16/2024 ADDENDUM STATUS: COMPLETED The has an appointment on April 19 Please inform the /bucky MARES MD PRIMARY CARE PHYSICIAN Signed: 04/16/2024 13:07 Receipt Acknowledged By: * AWAITING SIGNATURE * BHARGAV WELCH CARMEN F [place] Apr 14, 2024 09:01 AM ADDENDUM: LOCAL TITLE: Addendum STANDARD TITLE: ADDENDUM DATE OF NOTE: APR 14, 2024@09:01:48 ENTRY DATE: APR 14, 2024@09:01:49 AUTHOR: JONNIE VIZCAINO COSIGNER: URGENCY: STATUS: COMPLETED THIS MOBILE QA TESTER SCANNED [facility] CERTIFICATION OF ILLNESS FORM FOR RESIDENTIAL CUSTOMERS IN [place] FORM INTO CWM/SO/PACT EIGHT RIGHTFAX FOLDER. /lora/ CLAUDE VIZCAINO ADVANCED FINE SANDER Signed: 04/14/2024 09:02 Receipt Acknowledged By: 04/14/2024 16:11 /lora/ NIMCO SYKES REGISTERED NURSE 04/14/2024 13:21 /lora/ MANDO COOLEY LPN Licensed Practical Nurse 04/16/2024 12:52 /lora/ VENKATA MARES MD PRIMARY CARE PHYSICIAN --- Original Document --- 04/12/24 WALK-IN NOTE PRIMARY CARE (T): <====Click to Start Advanced Medical Support [place] presents to the Primary Care clinic with the following request: [ ]Medication Renewal/Refill [ ]Consultation with Team RN [ ]Symptoms [ X ]Other The [place] states they are: [ ]Waiting [ X ]Not Waiting No Walk in visit scheduled with PACT Nurse [ X ] At this encounter the [place]'s demographics were verified. [ X ] At this encounter the [place]'s Insurance information was verified. [ X ] At this encounter the below scheduled visits for the were discussed and appointment reminder card was offered. Future appointments: 04/14/2024 09:30 CWM/SO/PHARM/PACT 2 04/19/2024 15:00 CWM/SO/PACT EIGHT 04/20/2024 09:00 NHM/OPTOMETRY/WELSH/ 05/21/2024 09:45 CWM/NO/PAIN MD CLINIC [place] dropped off Medical Certification of Illnessform for Residential Customers in [place] for [employer]. is requesting to have form filled out and signed. [employer] form placed in provider's box for review. /lora/ [place] VARMA Signed: 04/12/2024 15:03 Receipt Acknowledged By: 04/13/2024 21:29 /es/ NIMCO SYKES REGISTERED NURSE 04/12/2024 16:08 /es/ BENJAMIN YOU LPN LICENSED PRACTICAL NURSE 04/13/2024 ADDENDUM STATUS: COMPLETED Please scan [place]'s [employer] form into pact rightfax folder for pcp review and completion if appropriate /lora/ NIMCO SYKES RN-JUSTIN REGISTERED NURSE Signed: 04/13/2024 21:30 Receipt Acknowledged By: 04/14/2024 09:01 /lora/ CLAUDE VIZCAINO ADVANCED FINE SANDER 04/13/2024 ADDENDUM STATUS: COMPLETED currently has forms available for review and completion in pact rightfax folder including [employer] form dropped off 04/12/24 and fmla forms dropped off 03/15/24. /lora/ NIMCO SYKES RN-JUSTIN REGISTERED NURSE Signed: 04/13/2024 21:32 Receipt Acknowledged By: * AWAITING SIGNATURE * VENKATA MARES 04/16/2024 ADDENDUM STATUS: UNSIGNED You may not VIEW this UNSIGNED Addendum. VARINDERMickeyCLAUDE GALLEGOS Apr 13, 2024 09:30 PM ADDENDUM: LOCAL TITLE: Addendum STANDARD TITLE: ADDENDUM DATE OF NOTE: APR 13, 2024@21:30:46 ENTRY DATE: APR 13, 2024@21:30:47 AUTHOR: BHARGAV WELCH COSIGNER: URGENCY: STATUS: COMPLETED [place] currently has forms available for review and completion in pact rightfax folder including [employer] form dropped off 04/12/24 and fmla forms dropped off 03/15/24. /es/ NIMCO SYKES RN-BC REGISTERED NURSE Signed: 04/13/2024 21:32 Receipt Acknowledged By: 04/16/2024 13:06 /es/ VENKATA MARES MD PRIMARY CARE PHYSICIAN --- Original Document --- 04/12/24 WALK-IN NOTE PRIMARY CARE (T): <====Click to Start Advanced Medical Support [place] presents to the Primary Care clinic with the following request: [ ]Medication Renewal/Refill [ ]Consultation with Team RN [ ]Symptoms [ X ]Other The [place] states they are: [ ]Waiting [ X ]Not Waiting No Walk in visit scheduled with PACT Nurse [ X ] At this encounter the [place]'s demographics were verified. [ X ] At this encounter the [place]'s Insurance information was verified. [ X ] At this encounter the below scheduled visits for the [place] were discussed and appointment reminder card was offered. Future appointments: 04/14/2024 09:30 CWM/SO/PHARM/PACT 2 04/19/2024 15:00 CWM/SO/PACT EIGHT 04/20/2024 09:00 NHM/OPTOMETRY/WELSH/ 05/21/2024 09:45 CWM/NO/PAIN CLINIC dropped off Medical Certification of Illnessform for Residential Customers in [place] for [employer]. is requesting to have form filled out and signed. [employer] form placed in provider's box for review. /es/ [place] LAYTON ABFrancisco J Signed: 04/12/2024 15:03 Receipt Acknowledged By: 04/13/2024 21:29 /lora/ NIMCO SYKES RN-BC REGISTERED NURSE 04/12/2024 16:08 /es/ BENJAMIN YOU LPN LICENSED PRACTICAL NURSE 04/13/2024 ADDENDUM STATUS: COMPLETED Please scan 's [employer] form into pact rightfax folder for pcp review and completion if appropriate /lora/ NIMCO SYKES RN-JUSTIN REGISTERED NURSE Signed: 04/13/2024 21:30 Receipt Acknowledged By: 04/14/2024 09:01 /lora/ CLAUDE VIZCAINO ADVANCED FINE SANDER 04/14/2024 ADDENDUM STATUS: COMPLETED THIS MOBILE QA TESTER SCANNED [facility] MEDICAL CERTIFICATION OF ILLNESS FORM FOR RESIDENTIAL CUSTOMERS IN [place] FORM INTO CWM/SO/PACT EIGHT RIGHTFAX FOLDER. /lora/ CLAUDE VIZCAINO ADVANCED FINE SANDER Signed: 04/14/2024 09:02 Receipt Acknowledged By: 04/14/2024 16:11 /lora/ NIMCO SYKES RN-JUSTIN REGISTERED NURSE 04/14/2024 13:21 /es/ MANDO COOLEY LPN Licensed Practical Nurse 04/16/2024 12:52 /es/ VENKATA MARES MD PRIMARY CARE PHYSICIAN 04/16/2024 ADDENDUM STATUS: COMPLETED Please inform the [place] he needs a new form from [employer]-he needs to fill out only his name . /lora/ VENKATA MARES MD PRIMARY CARE PHYSICIAN Signed: 04/16/2024 12:54 Receipt Acknowledged By: * AWAITING SIGNATURE * CLAUDE VIZCAINO KRISTIN [place] Apr 13, 2024 09:29 PM ADDENDUM: LOCAL TITLE: Addendum STANDARD TITLE: ADDENDUM DATE OF NOTE: APR 13, 2024@21:29:58 ENTRY DATE: APR 13, 2024@21:30 AUTHOR: BHARGAV WELCH EXP COSIGNER: URGENCY: STATUS: COMPLETED Please scan 's [employer] form into pact rightfax folder for pcp review and completion if appropriate /lora/ NIMCO SYKES RN-JUSTIN REGISTERED NURSE Signed: 04/13/2024 21:30 Receipt Acknowledged By: 04/14/2024 09:01 /lora/ CLAUDE VIZCAINO ADVANCED FINE SANDER --- Original Document --- 04/12/24 WALK-IN NOTE PRIMARY CARE (T): <====Click to Start Advanced Medical Support presents to the Primary Care clinic with the following request: [ ]Medication Renewal/Refill [ ]Consultation with Team RN [ ]Symptoms [ X ]Other The states they are: [ ]Waiting [ X ]Not Waiting No Walk in visit scheduled with PACT Nurse [ X ] At this encounter the [place]'s demographics were verified. [ X ] At this encounter the [place]'s Insurance information was verified. [ X ] At this encounter the below scheduled visits for the [place] were discussed and appointment reminder card was offered. Future appointments: 04/14/2024 09:30 CWM/SO/PHARM/PACT 2 04/19/2024 15:00 CWM/SO/PACT EIGHT 04/20/2024 09:00 NHM/OPTOMETRY/WESLH/ 05/21/2024 09:45 CWM/NO/PAIN MD CLINIC [place] dropped off Medical Certification of Illnessform for Residential Customers in [place] for [employer]. [place] is requesting to have form filled out and signed. [employer] form placed in provider's box for review. /lora/ [place] VARMA Signed: 04/12/2024 15:03 Receipt Acknowledged By: 04/13/2024 21:29 /lora/ NIMCO SYKES REGISTERED NURSE 04/12/2024 16:08 /lora/ BENJAMIN YOU LPN LICENSED PRACTICAL NURSE 04/13/2024 ADDENDUM STATUS: COMPLETED currently has forms available for review and completion in pact rightfax folder including [employer] form dropped off 04/12/24 and fmla forms dropped off 03/15/24. /lora/ NIMCO SYKES RN- REGISTERED NURSE Signed: 04/13/2024 21:32 Receipt Acknowledged By: * AWAITING SIGNATURE * VENKATA MARES 04/14/2024 ADDENDUM STATUS: UNSIGNED You may not VIEW this UNSIGNED Addendum. BHARGAV WELCH Apr 12, 2024 03:02 PM PRIMARY CARE NOTE: LOCAL TITLE: WALK-IN NOTE PRIMARY CARE (T) STANDARD TITLE: PRIMARY CARE NOTE DATE OF NOTE: APR 12, 2024@15:02 ENTRY DATE: APR 12, 2024@15:02:40 AUTHOR: [place] LAYTON EXP COSIGNER: URGENCY: STATUS: [...] [ X ] At this encounter the [place]'s demographics were verified. [ X ] At this encounter the [place]'s Insurance information was verified. [ X ] At this encounter the below scheduled visits for the were discussed and appointment reminder card was offered. Future appointments: 04/14/2024 09:30 CWM/SO/PHARM/PACT 2 04/19/2024 15:00 CWM/SO/PACT EIGHT 04/20/2024 09:00 NHM/OPTOMETRY/[place]/ 05/21/2024 09:45 CWM/NO/PAIN MD CLINIC dropped off Medical Certification of Illnessform for Residential Customers in [place] for [employer]. [place] is requesting to have form filled out and signed. [employer] form placed in provider's box for review. /lora/ [place] VARMA Signed: 04/12/2024 15:03 Receipt Acknowledged By: 04/13/2024 21:29 /lora/ NIMCO SYKES REGISTERED NURSE 04/12/2024 16:08 /es/ BENJAMIN YOU LPN LICENSED PRACTICAL NURSE 04/13/2024 ADDENDUM STATUS: COMPLETED Please scan [place]'s [employer] form into pact rightfax folder for pcp review and completion if appropriate /NIMCO Spear RN-JUSTIN REGISTERED NURSE Signed: 04/13/2024 21:30 Receipt Acknowledged By: 04/14/2024 09:01 /lora/ CLAUDE VIZCAINO ADVANCED FINE SANDER 04/13/2024 ADDENDUM STATUS: COMPLETED [place] currently has forms available for review and completion in pact rightfax folder including [employer] form dropped off 04/12/24 and fmla forms dropped off 03/15/24. /lora/ NIMCO SYKES RN-JUSTIN REGISTERED NURSE Signed: 04/13/2024 21:32 Receipt Acknowledged By: 04/16/2024 13:06 /lora/ VENKATA MARES MD PRIMARY CARE PHYSICIAN 04/14/2024 ADDENDUM STATUS: COMPLETED THIS MOBILE QA TESTER SCANNED [facility] MEDICAL CERTIFICATION OF ILLNESS FORM FOR RESIDENTIAL CUSTOMERS IN [place] FORM INTO CWM/SO/PACT EIGHT RIGHTFAX FOLDER. /lora/ CLAUDE VIZCAINO ADVANCED FINE SANDER Signed: 04/14/2024 09:02 Receipt Acknowledged By: 04/14/2024 16:11 /lora/ NIMCO SYKES REGISTERED NURSE 04/14/2024 13:21 /es/ MANDO COOLEY LPN Licensed Practical Nurse 04/16/2024 12:52 /lora/ VENKATA MARES MD PRIMARY CARE PHYSICIAN 04/16/2024 ADDENDUM STATUS: COMPLETED Please inform the he needs a new form from [employer]-he needs to fill out only his name . /bucky MARES MD PRIMARY CARE PHYSICIAN Signed: 04/16/2024 12:54 Receipt Acknowledged By: * AWAITING SIGNATURE * CLAUDE VIZCAINO 04/16/2024 ADDENDUM STATUS: COMPLETED The [place] has an appointment on April 19 Please inform the [place] /bucky MARES MD PRIMARY CARE PHYSICIAN Signed: 04/16/2024 13:07 Receipt Acknowledged By: * AWAITING SIGNATURE * BHARGAV WELCH,CA WRAY
--- OUTSIDE RECORDS SUMMARY | 2024-09-30 08:40 | XMS_ITS | Encounter Summary ---
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 ([place]) Organization Department of [place] Address [address] [place] [id number] Care Team Providers Care Art Psychotherapist Or Therapist Name Role Phone CHANI RHODES Primary [facility] Insurance Providers: All historical and current [...] to Policy Zayas [employer] DENT[employer] DENTAL INSURANCE [facility] February 03, 2022 [id number] EMERITA BAUTISTA PATIENT [facility] MEDICAID MEDICAID MEDIC AID Oct 06, 2013 MEDICAI D [id number] EMERITA BAUTISTA PATIENT MEDICARE (WNR) MEDICARE (M) PART A Mar 06, 2015 PART A [id number] [phone] EMERITA BAUTISTA PATIENT MEDICARE (WNR) MEDICARE (M) PART B Mar 06, 2015 PART B [id number] EMERITA BAUTISTA PATIENT MEDICARE (WNR) MEDICARE (M) PART B Mar 06, 2015 PART B [id number] EMERITA BAUTISTA PATIENT MEDICARE (WNR) MEDICARE (M) PART A Mar 06, 2015 PART A [id number] EMERITA BAUTISTA PATIENT MEDICARE (WNR) MEDICARE (M) PART A Mar 06, 2015 PART A [id number] [phone] EMERITA BAUTISTA PATIENT MEDICARE (WNR) MEDICARE (M) PART B Mar 06, 2015 PART B [id number] [phone] EMERITA BAUTISTA PATIENT MEDICARE (WNR) MEDICARE (M) PART B Mar 06, 2015 PART B [id number] EMERITA BAUTISTA PATIENT Selected Encounter This section includes the information on record at OR for the Encounter. Date/Time Encounter Type Encounter Description Reason Pro vider Source IHE Encounter Template Text not used by OR Advance Directives: All historical and current Section Date Range: From patient's date of to the date document was created. This section includes ALL of a patient's completed or amended VA Advance and Rescinded Directives. The entries below indicate that a directive exists for the patient, but an actual copy is not included with this document. The data comes from all OR facilities. Date Advance Directives Provider Source May 23, 2011 ADVANCE DIRECTIVE JUD BROOKS
--- OUTSIDE RECORDS SUMMARY | 2024-09-30 08:41 | XMS_ITS | Encounter Summary ---
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 ([place]) Address [address] [place] [address] Care Team Providers Care Solderer Assembly Repair Name Role Phone CHANI RHODES Primary Care [...] [facility] February 03, 2022 [id number] EMERITA BAUTISTA PATIENT [facility] MEDICAID MEDICAID MEDIC AID Oct 06, 2013 MEDICAI D [id number] EMERITA BAUTISTA PATIENT MEDICARE (WNR) MEDICARE (M) PART A Mar 06, 2015 PART A [id number] EMERITA BAUTISTA PATIENT MEDICARE (WNR) MEDICARE (M) PART B Mar 06, 2015 PART B [id number] EMERITA BAUTISTA PATIENT MEDICARE (WNR) MEDICARE (M) PART B Mar 06, 2015 PART B [id number] [phone] EMERITA BAUTISTA PATIENT MEDICARE (WNR) MEDICARE (M) PART A Mar 06, 2015 PART A [id number] EMERITA BAUTISTA PATIENT MEDICARE (WNR) MEDICARE (M) PART B Mar 06, 2015 PART B [id number] EMERITA BAUTISTA PATIENT MEDICARE (WNR) MEDICARE (M) PART B Mar 06, 2015 PART B [id number] EMERITA BAUTISTA PATIENT MEDICARE (WNR) MEDICARE (M) PART A Mar 06, 2015 PART A [id number] [phone] EMERITA BAUTISTA PATIENT Selected Encounter This section includes the information on record at OR for the Encounter. Date/Time Encounter Type Encounter Description Reason Pro vider Source Apr 14, 2024 10:07 AM Outpatient Encounter CLINICAL PHARMACY IHE Encounter Template Text not used by OR Plan of Treatment: Future Appointments (+ 6 months) and Future Tests (+/- 45 days) The Plan of Treatment section includes future care activities for the [facility] This section includes future appointments and future orders which are active, pending or scheduled. Future Appointments This section includes appointments that were scheduled to occur 6 months from the date of the Encounter, up to a maximum of 20 appointments. The data comes from all OR treatment facilities. Appointment Date/Time Appointment Type Appointme nt Facility Name Apr 19, 2024 03:00 PM AMBULATORY [facility] Apr 20, 2024 09:00 AM AMBULATORY - MEDICINE [facility] [place] [facility] Apr 28, 2024 03:00 PM AMBULATORY - MEDICINE [place] C [place] [facility] May 21, 2024 09:45 AM AMBULATORY - MEDICINE [place] C [place] [facility] Jun 10, 2024 09:30 AM AMBULATORY - MEDICINE [place] C [place] [facility] Jun 23, 2024 08:00 AM AMBULATORY - REHAB MEDICIN [facility] Jun 28, 2024 07:30 AM AMBULATORY - REHAB MEDICIN [facility] Jul 01, 2024 02:45 PM AMBULATORY - MEDICINE [place] C [place] [facility] Jul 06, 2024 08:00 AM AM[facility]ULATORY [facility] Jul 13, 2024 10:00 AM AMBULATORY - REHAB MEDICIN [facility] [place] Jul 28, 2024 10:00 AM AMBULATORY - REHAB MEDICIN [facility] Aug 05, 2024 09:30 AM AMBULATORY - MEDICINE [place] C [place] [facility] Aug 19, 2024 09:00 AM [facility]ULATORY [facility] Aug 24, 2024 11:00 AM AMBULATORY - PSYCHIATRY [facility] [place] [facility] Aug 24, 2024 03:00 PM AMBULATORY - REHAB MEDICIN [facility] [place] Aug 27, 2024 10:00 AM AMBULATORY - MEDICINE [place] C [place] [facility] Sep 16, 2024 08:30 AM AMBULATORY [facility] Sep 23, 2024 03:30 PM AMBULATORY - MEDICINE [place] C [place] [facility] Sep 24, 2024 12:00 PM AMBULATORY - MEDICINE [place] C [place] [facility] Sep 30, 2024 08:55 AM AMBULATORY - MEDICINE [place] C [place] [facility] Social History: Smoking Status (Most current) and Tobacco Use (All prior to encounter date) This section includes the most current, and the historical, smoking and tobacco- related health factors from the OR facility where the Encounter took place. Current Smoking Status This section includes the most current smoking, or tobacco-related health factor, from the OR facility where the Encounter took place. Date/Time Current Smoking Status Comment Facil ity Mar 11, 2023 08:30 AM [facility] Tobacco Use History This section includes a history of the smoking, or tobacco-related health factors, that were collected on or before the date of the Encounter. The data comes from the OR facility where the Encounter took place. Date/Time Smoking Status/Tobacco Use Comment F acility Mar 11, 2023 08:30 AM VA-TOBACCO QUIT 15 YRS OR MORE OR [facility] [place] [facility] Dec 27, 2020 02:00 PM VA-TOBACCO FORMER USER [facility] [place] [facility] Dec 27, 2020 02:00 PM VA-TOBACCO QUIT 15 YRS OR MORE [facility] Advance Directives: All historical and current [...] Provider Source May 23, 2011 ADVANCE DIRECTIVE BROOKSJUDABRRY [facility] Reports: +/- 30 days of the [...] the Encounter. The data comes from all OR treatment facilities. Date/Time Radiology Report Provider Source Apr 27, 2024 08:46 AM KNEE 3 VIEWS (RIGH T): EMERITA BAUTISTA [id number] -1965 M Ex Date: APR 27, 2024@08:46 Req Phys: VENKATA MARES Pat Loc: CWM/SO/PACT EIGHT WH (Req'g Lo Img Loc: [facility]BUILDING 1 Service: Unknown [place] [facility] , (Case 62 COMPLETE) KNEE 1 OR 2 VIEWS (RIGHT) (RAD Detailed) CPT:69595 Proc Modifiers : BILATERAL EXAM Reason for Study: chronic pain (Case 63 COMPLETE) KNEES BILATERAL STANDING (RAD Detailed) CPT:22279 (Case 64 COMPLETE) KNEE 1 OR 2 VIEWS (LEFT) (RAD Detailed) CPT:52805 Proc Modifiers : BILATERAL EXAM Clinical History: Report Status: Verified Date Reported: APR 27, 2024 Date Verified: APR 27, 2024 Vinyl Cutter E-Sig:/ES/TERESA BLOUNT JR Report: Study: AP weight-bearing [...] Primary Interpreting Staff: TERESA BLOUNT JR, Radiologist (Vinyl Cutter) /TERESA AGUILAR JR [facility] W[facility]N [facility] Encounter Notes: All associated encounter notes This section contains the clinical notes associated to the Encounter. Date/Time Encounter Note(s) Provider Source Apr 14, 2024 10:07 AM DIABETOLOGY NOTE: LOCAL TITLE: INSULIN PUMP/CGM DOWNLOAD (T) STANDARD TITLE: DIABETOLOGY NOTE DATE OF NOTE: APR 14, 2024@10:07 ENTRY DATE: APR 14, 2024@10:07:56 AUTHOR: SHANDA BECK EXP COSIGNER: URGENCY: STATUS: COMPLETED Please select: Personal Continuous Glucose Monitor- DEXCOM G7 Date of Documentation:Apr Please see attached scanned document in [employer]. /lora/ SHANDA BECK CLINICAL SHIFT COMMANDER Signed: 04/14/2024 10:08 SHANDA BECK [place]
--- OUTSIDE RECORDS SUMMARY | 2024-09-30 08:41 | XMS_ITS | Encounter Summary ---
Author Name [facility] [place] Organization [place] Address [address] [place] [address] Care Team Providers Care Tube Mill Operator Name Role Phone CHANI RHODES Primary [...] [facility] February 03, 2022 [id number] EMERITA BAUTISTA PATIENT [facility] MEDICAID MEDICAID MEDIC AID Oct 06, 2013 MEDICAI D [id number] EMERITA BAUTISTA PATIENT MEDICARE (WNR) MEDICARE (M) PART A Mar 06, 2015 PART A [id number] EMERITA BAUTISTA PATIENT MEDICARE (WNR) MEDICARE (M) PART B Mar 06, 2015 PART B [id number] EMERITA BAUTISTA PATIENT MEDICARE (WNR) MEDICARE (M) PART B Mar 06, 2015 PART B [id number] EMERITA BAUTISTA PATIENT MEDICARE (WNR) MEDICARE (M) PART A Mar 06, 2015 PART A [id number] EMERITA BAUTISTA PATIENT MEDICARE (WNR) MEDICARE (M) PART A Mar 06, 2015 PART A [id number] [phone] EMERITA BAUTISTA PATIENT MEDICARE (WNR) MEDICARE (M) PART B Mar 06, 2015 PART B [id number] EMERITA BAUTISTA PATIENT MEDICARE (WNR) MEDICARE (M) PART B Mar 06, 2015 PART B [id number] [phone] EMERITA BAUTISTA PATIENT Selected Encounter This section includes the information on record at CT for the Encounter. Date/Time Encounter Type Encounter Description Reason Pro vider Source Apr 16, 2024 09:52 AM Outpatient Encounter PRIMARY CARE/MEDICINE IHE Encounter Template Text not used by CT Plan of Treatment: Future Appointments (+ 6 months) and Future Tests (+/- 45 days) The Plan of Treatment section includes future care activities for the [facility] This section includes future appointments and [...] - MEDICINE CT C [place] [facility] Apr 28, 2024 03:00 PM AMBULATORY - MEDICINE CT C [place] [facility] May 21, 2024 09:45 AM AMBULATORY - MEDICINE CT C [place] [facility] Jun 10, 2024 09:30 AM AMBULATORY - MEDICINE CT C [place] [facility] Jun 23, 2024 08:00 AM AMBULATORY - REHAB MEDICIN [facility] [place] Jun 28, 2024 07:30 AM AMBULATORY - [facility]AB [facility]ICIN [facility] Jul 01, 2024 02:45 PM AMBULATORY - MEDICINE CT C [place] [facility] Jul 06, 2024 08:00 AM [facility] Jul 13, 2024 10:00 AM AMBULATORY - REHAB MEDICIN [place] Jul 28, 2024 10:00 AM AMBULATORY - REHAB [facility]IN [facility] [place] Aug 05, 2024 09:30 AM AMBULATORY - MEDICINE [place] [facility] Aug 19, 2024 09:00 AM AM[facility]ULATORY - MEDICINE [facility] Aug 24, 2024 11:00 AM AMBULATORY - PSYCHIATRY [place] [place] [facility] Aug 24, 2024 03:00 PM AMBULATORY - REHAB MEDICIN [facility] [place] Aug 27, 2024 10:00 AM AMBULATORY - MEDICINE CT C [place] [facility] Sep 16, 2024 08:30 AM AM[facility]ULATORY - MEDICINE [facility] Sep 23, 2024 03:30 PM AMBULATORY - MEDICINE CT C [place] [facility] Sep 24, 2024 12:00 PM AMBULATORY - MEDICINE CT C [place] [place] [facility] Sep 30, 2024 08:55 AM AMBULATORY - MEDICINE CT C [place] [place] [facility] Social History: Smoking Status (Most [...] 11, 2023 08:30 AM [facility] Tobacco Use History This section includes a history of the smoking, or tobacco-related health factors, that were collected on or before the date of the Encounter. The data comes from the CT facility where the Encounter took place. Date/Time Smoking Status/Tobacco Use Comment F acility Mar 11, 2023 08:30 AM VA-TOBACCO QUIT 15 YRS OR MORE [facility] [place] [facility] Dec 27, 2020 02:00 PM VA-TOBACCO FORMER USER [facility] [place] [facility] Dec 27, 2020 02:00 PM VA-TOBACCO QUIT [address] [facility] Advance Directives: All historical and [...] KNEE 3 VIEWS (RIGH T): EMERITA BAUTISTA [id number] -1965 M Ex Date: APR 27, 2024@08:46 Req Phys: VENKATA MARES Pat Loc: CWM/SO/PACT EIGHT WH (Req'g Lo Img Loc: [facility] 1 Service: Unknown CT CN[facility]L [facility] , (Case 62 COMPLETE) KNEE 1 OR 2 VIEWS (RIGHT) (RAD Detailed) CPT:21326 Proc Modifiers : BILATERAL EXAM Reason for Study: chronic pain (Case 63 COMPLETE) KNEES BILATERAL STANDING (RAD Detailed) CPT:29855 (Case 64 COMPLETE) KNEE 1 OR 2 VIEWS (LEFT) (RAD Detailed) CPT:40487 Proc Modifiers : BILATERAL EXAM Clinical History: Report Status: Verified Date Reported: APR 27, 2024 Date Verified: APR 27, 2024 Deli Clerk E-Sig:/ES/TERESA BLOUNT JR Report: Study: AP weight-bearing [...] Primary Interpreting Staff: TERESA BLOUNT JR, Radiologist (Deli Clerk) /TERESA AGUILAR JR [facility] Encounter Notes: All associated encounter notes This section contains the clinical notes associated to the Encounter. Date/Time Encounter Note(s) Provider Source Apr 16, 2024 09:52 AM ADMINISTRATIVE NOT E: LOCAL TITLE: ADMINISTRATIVE NOTE STANDARD TITLE: ADMINISTRATIVE NOTE DATE OF NOTE: APR 16, 2024@09:52 ENTRY DATE: APR 16, 2024@09:52:24 AUTHOR: JONNIE VIZCAINO COSIGNER: URGENCY: STATUS: COMPLETED THIS ZINC SKIMMER HAD SPOKEN TO TO REMIND OF F2F APPT WITH CWM/SO/PACT EIGHT PROVIDER ON 04/19/2024 AT 15:00 FOR LEFT KNEE CHRONIC PAIN,COMPLETE FMLA AND EVERSOURCE PAPERWORK. /lora/ CLAUDE VIZCAINO ADVANCED PRIVATE DUTY AIDE Signed: 04/16/2024 09:53 Receipt Acknowledged By: 04/20/2024 11:32 /es/ NUHA SYKESN RN-BC REGISTERED NURSE 04/16/2024 13:06 /es/ MANDO COOLEY LPN Licensed Practical Nurse CLAUDE VIZCAINO
--- OUTSIDE RECORDS SUMMARY | 2024-09-30 08:41 | XMS_ITS | Encounter Summary ---
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 Name Role Phone CHANI RHODES [...] Policy Zayas [employer]IG[employer] DENTAL DENTAL INSURANCE [facility] February 03, 2022 [id number] EMERITA BAUTISTA PATIENT [facility] MEDICAID MEDICAID MEDIC AID Oct 06, 2013 MEDICAI D [id number] EMERITA BAUTISTA PATIENT MEDICARE (WNR) MEDICARE (M) PART A Mar 06, 2015 PART A [id number] EMERITA BAUTISTA PATIENT MEDICARE (WNR) MEDICARE (M) PART B Mar 06, 2015 PART B [id number] EMERITA BAUTISTA PATIENT MEDICARE (WNR) MEDICARE (M) PART B Mar 06, 2015 PART B [id number] [phone] EMERITA BAUTISTA PATIENT MEDICARE (WNR) MEDICARE (M) PART A Mar 06, 2015 PART A [id number] EMERITA BAUTISTA PATIENT MEDICARE (WNR) MEDICARE (M) PART B Mar 06, 2015 PART B [id number] [id number] EMERITA BAUTISTA PATIENT MEDICARE (WNR) MEDICARE (M) PART B Mar 06, 2015 PART B [id number] [phone] EMERITA BAUTISTA PATIENT MEDICARE (WNR) MEDICARE (M) PART A Mar 06, 2015 PART A [id number] [phone] EMERITA BAUTISTA PATIENT Selected Encounter This section includes the information on record at [place] for the Encounter. Date/Time Encounter Type Encounter Description Reason Provider Source Apr 19, 2024 03:00 PM OFFICE O/P EST MOD 30 MIN PRIMARY CARE/MEDICINE ICD-10-CM M25.561 Pain in right knee VENKATA MARES Behzad Encounter Template Text not used by [place] Assessments - Encounter Diagnoses This section includes the primary and secondary diagnoses documented for the Encounter. Date/Time Primary/Secondary Diagnosis Diagnosis Name Provider Source Apr 19, 2024 03:48 PM PRIMARY Pain in right knee MYKELLEAVENKATA [facility] Apr 19, 2024 03:48 PM SECONDARY Essential (primary) hypertension VENKATA MARES [facility] Apr 19, 2024 03:48 PM SECONDARY Pain in left knee VENKATA MARES [facility] Apr 19, 2024 03:48 PM SECONDARY Type 2 diabetes mellitus without complications VENKATA MARES NILS Plan of Treatment: Future Appointments (+ 6 months) and Future Tests (+/- 45 days) The Plan of Treatment section includes [facility] care [facility] the [facility] [place] [facility] This section includes future appointments and future orders which are active, pending or scheduled. Future Appointments This section includes appointments that were scheduled to occur 6 months from the date of the Encounter, up to a maximum of 20 appointments. The data comes from all [place] treatment facilities. Appointment Date/Time Appointment Type Appointme nt Facility Name Apr 20, 2024 09:00 AM AMBULATORY - MEDICINE [facility] Apr 28, 2024 03:00 PM AMBULATORY MEDICINE [facility] May 21, 2024 09:45 AM [facility] Jun 10, 2024 09:30 AM AM[facility]ULATORY [facility] [place] Jun 23, 2024 08:00 AM AMBULATORY - REHAB MED[facility]IN [facility] Jun 28, 2024 07:30 AM AMBULATORY - REHAB MED[facility]IN E [facility] Jul 01, 2024 02:45 PM AMBULATORY [facility] [place] Jul 06, 2024 08:00 AM [facility] Jul 13, 2024 10:00 AM AMBULATORY - REHAB MEDICIN E [facility] Jul 28, 2024 10:00 AM AMBULATORY - REHAB MEDICIN E [facility] Aug 05, 2024 09:30 AM AMBULATORY [facility]IC[facility] [place] [facility] Aug 19, 2024 09:00 AM [facility] Aug 24, 2024 11:00 AM AMBULATORY - PSYCHIATRY [facility] [place] [facility] Aug 24, 2024 03:00 PM AMBULATORY - REHAB MEDICIN [facility] Aug 27, 2024 10:00 AM AMBULATORY - MEDICINE [facility] [place] [facility] Sep 16, 2024 08:30 AM [facility]ORY [facility] Sep 23, 2024 03:30 PM AMBULATORY - [facility]ICINE [facility] [place] [facility] Sep 24, 2024 12:00 PM AMBULATORY - MEDICINE [facility] [place] [facility] Sep 30, 2024 08:55 AM AMBULATORY - [facility]IC[facility] [place] [facility] Oct 15, 2024 08:00 AM [facility]ATORY [facility] Vital Signs: All taken on the encounter date This section contains inpatient and outpatient Vital Signs collected on the date of the Encounter. Date/Time Temperature Pulse Blood Pressure Respiratory Rate SP02 Pain Height Weight Body Mass Index Source Apr 19, 2024 03:04 PM 90 125/79 94 273 32 [facility] IE Social History: Smoking Status (Most [...] Current Smoking Status Comment Ana ity Mar 08, 2024 09:00 AM VA-TOBACCO FORMER USER [facility] Tobacco Use History This section includes a history of the smoking, or tobacco-related health factors, that were collected on or before the date of the Encounter. The data comes from the [place] facility where the Encounter took place. Date/Time Smoking Status/Tobacco Use Comment F acility Mar 08, 2024 09:00 AM VA-TOBACCO QUIT 15 YRS OR MORE [facility] Mar 27, 2022 09:30 AM VA-TOBACCO FORMER USER [facility] Mar 27, 2022 09:30 AM VA-TOBACCO QUIT 15 YRS OR MORE [facility] Dec 22, 2018 10:29 AM VA-TOBACCO FORMER USER [facility] Dec 22, 2018 10:29 AM VA-TOBACCO QUIT 15 YRS OR MORE [facility] Mar 19, 2018 11:33 AM VA-TOBACCO FORMER USER [facility] Mar 19, 2018 11:33 AM VA-TOBACCO QUIT 15 YRS OR MORE [facility] May 13, 2017 01:22 PM QUIT TOBACCO USE > 7 YEARS AGO quit 24 yrs ago [facility] Nov 15, 2015 09:48 AM QUIT TOBACCO USE > 7 YEARS AGO States he last smoked 21 years ago [facility] Dec 07, 2009 02:51 PM QUIT TOBACCO USE > 7 YEARS AGO [facility] Advance Directives: All historical and current Section Date Range: From patient's date of to the date document was created. This section includes ALL of a patient's completed or amended [place] Advance and Rescinded Directives. The entries below indicate that a directive exists for the patient, but an actual copy is not included with this document. The data comes from all [facility]. Date Advance Directives Provider Source May [...] the Encounter. The data comes from all [place] treatment facilities. Date/Time Radiology Report Provider Source Apr 27, 2024 08:46 AM KNEE 3 VIEWS (RIGH T): EMERITA BAUTISTA [id number] -[id number] M Exm Date: APR 27, 2024@08:46 Req Phys: MYKELLEA,VENKATA F Pat Loc: CWM/SO/PACT EIGHT WH (Req'g Lo Img Loc: [facility]/BUILDING 1 Service: Unknown IN [facility] , (Case 62 COMPLETE) KNEE 1 OR 2 VIEWS (RIGHT) (RAD Detailed) CPT:57818 Proc Modifiers : BILATERAL EXAM Reason for Study: chronic pain (Case 63 COMPLETE) KNEES BILATERAL STANDING (RAD Detailed) CPT:30183 (Case 64 COMPLETE) KNEE 1 OR 2 VIEWS (LEFT) (RAD Detailed) CPT:82828 Proc Modifiers : BILATERAL EXAM Clinical History: Report Status: Verified Date Reported: APR 27, 2024 Date Verified: APR 27, 2024 Director Supply Chain E-Sig:/ES/TERESA BLOUNT JR Report: Study: AP weight-bearing [...] Primary Interpreting Staff: TERESA BLOUNT JR, Radiologist (Director Supply Chain) /TERESA AGUILAR JR [facility] Encounter Notes: All associated encounter notes This section contains the clinical notes associated to the Encounter. Date/Time Encounter Note(s) Provider Source Apr 19, 2024 03:19 PM PHYSICIAN NOTE: LOCAL TITLE: MD NOTE STANDARD TITLE: PHYSICIAN NOTE DATE OF NOTE: APR 19, 2024@15:19 ENTRY DATE: APR 19, 2024@15:19:42 AUTHOR: VENKATA MARES EXP COSIGNER: URGENCY: STATUS: COMPLETED HISTORY OF PRESENT ILLNESS: EMERITA BAUTISTA, is a 58 yo MALE , who presents at the [facility] for follow-up visit to have FMLA papers filled out. Active problems - Computerized Problem List is the source for the following: -bilateral knee chronic pain , on & off -Diabetes mellitus type 2 The following VA and Non-VA meds were reconciled with patient: Active Outpatient Medications (including Supplies): Issue Date Status Last Fill Active Outpatient Medications Refills Expiration 1) ACETAMINOPHEN 500MG TAB Qty: 200 for 30 ACTIVE Issu:11-28-23 days Sig: TAKE TWO TABLETS BY MOUTH Refills: 1 Last:03-18-24 THREE TIMES DAILY NEEDED FOR PAIN Expr:11-28-24 2) ATORVASTATIN CALCIUM 80MG TAB Qty: 90 ACTIVE Issu:11-28-23 for 90 days Sig: TAKE ONE TABLET BY Refills: 1 Last:03-18-24 MOUTH AT BEDTIME FOR HIGH CHOLESTEROL Expr:11-28-24 3) BUPRENORPHINE 5MCG/HR PATCH Qty: 6 for ACTIVE Issu:03-22-24 30 days Sig: APPLY 1 PATCH TO SKIN Refills: 1 Last:03-22-24 EVERY 5 DAYS (REMOVE PATCH BEFORE Expr:09-22-24 APPLYING A NEW PATCH) 4) CHOLECALCIF 50MCG (D3-2,000UNIT) TAB ACTIVE Issu:12-15-23 Qty: 100 for 90 days Sig: TAKE ONE Refills: 2 Last:12-15-23 TABLET BY MOUTH ONCE DAILY FOR VITAMIN Expr:03-12-25 SUPPLEMENTATION 5) DICLOFENAC NA 1% TOP GEL Qty: 100 for ACTIVE Issu:05-21-23 20 days Sig: APPLY 4 GRAMS TOPICALLY Refills: 2 Last:05-21-23 TWICE DAILY NEEDED FOR Expr:05-21-24 OSTEOARTHRITIS - USE DOSING CARD PROVIDED IN BOX 6) EMPAGLIFLOZIN 25MG TAB Qty: 90 for 90 ACTIVE Issu:10-17-23 days Sig: TAKE ONE TABLET BY MOUTH Refills: 1 Last:10-17-23 ONCE DAILY Expr:10-17-24 7) GABAPENTIN 100MG CAP Qty: 207 for 30 ACTIVE Issu:03-26-24 days Sig: TAKE ONE CAPSULE BY MOUTH Refills: 0 Last:03-26-24 THREE TIMES A DAY FOR 7 DAYS, THEN Expr:04-25-24 TAKE TWO CAPSULES THREE TIMES A DAY FOR 7 DAYS, THEN TAKE THREE CAPSULES THREE TIMES A DAY FOR 16 DAYS 8) GLUCOSE SENSOR DEXCOM G7 Qty: 6 for 60 ACTIVE Issu:12-11-23 days Sig: USE 1 SENSOR DIRECTED Refills: 3 Last:03-22-24 EVERY 10 DAYS Expr:12-11-24 9) HYDROCODONE 5MG/ACETAMINOPHEN 325MG TAB ACTIVE Issu:03-22-24 Qty: 60 for 30 days Sig: TAKE 1 Refills: 0 Last:03-22-24 TABLET BY MOUTH TWICE DAILY FOR PAIN Expr:04-21-24 (NEXT FILL 04/19/24) 10) INSULIN,ASPART(EQV-NOVLG)100UN/ ML FLXPEN ACTIVE Issu:02-26-24 Qty: 10 for 30 days Sig: INJECT 25 Refills: 7 Last:04-06-24 UNITS SUBCUTANEOUSLY THREE TIMES A DAY Expr:02-26-25 INJECT 15 MINUTES BEFORE MEALS IF MEAL SKIPPED SKIP THE DOSE 11) INSULIN,GLARGINE-YFGN 100UNIT/ML PEN 3ML ACTIVE Issu:02-26-24 Qty: 10 for 30 days Sig: INJECT 46 Refills: 5 Last:02-26-24 UNITS SUBCUTANEOUSLY TWICE DAILY Expr:02-26-25 12) LIDOCAINE 5% PATCH Qty: 30 for 30 days ACTIVE Issu:11-28-23 Sig: APPLY 1 PATCH TOPICALLY ONCE Refills: 3 Last:11-28-23 DAILY NEEDED (LEAVE PATCH ON FOR 12 Expr:11-28-24 HOURS, THEN REMOVE PATCH) 13) LISINOPRIL 5MG TAB Qty: 90 for 90 days ACTIVE Issu:05-21-23 Sig: TAKE ONE TABLET BY MOUTH ONCE Refills: 1 Last:01-29-24 DAILY TO CONTROL BLOOD PRESSURE Expr:05-21-24 14) METFORMIN HCL 750MG 24HR SA TAB Qty: 90 ACTIVE Issu:02-26-24 for 90 days Sig: TAKE ONE TABLET BY Refills: 1 Last:02-26-24 MOUTH ONCE DAILY Expr:02-26-25 15) SEMAGLUTIDE 0.25MG/0.375ML INJ PEN 3ML ACTIVE Issu:04-14-24 Qty: 1 for 28 days Sig: INJECT 0.5MG Refills: 4 Last:04-14-24 SUBCUTANEOUSLY ONCE A WEEK FOR TYPE 2 Expr:04-15-25 DIABETES MELLITUS ALLERGIES: ========= Patient has answered NKA LAB HISTORY: No new labs PMH: HTN, HLP, DM type [...] years ago HISTORY: PERIOD OF SERVICE - [employer] FROM Jun TO Apr COMBAT SERVICE INDICATED: No REVIEW OF SYSTEMS: No fever, chills, No chest pain shortness of breath at rest No cough or wheezing No abdominal pain nausea or vomiting Multiple joints chronic pain on and off especially bilateral knees No headaches or dizziness PHYSICAL EXAMINATION: WD/obese seems to be in NAD S1-S2 positive, RRR YUE, CTA bilateral Abdomen soft nontender to palpation No edema lower extremities AAO x3; ambulates with a cane ASSESSMENT/PLAN: -bilateral knee chronic pain , on & off X-ray bilateral knees ordered Orthopedics consultation placed Continue current pain medications-managed by our pain management team Continue lidocaine patches, diclofenac gel as needed He would like to have FMLA papers done-intermittent 1 day a month for 8 hours as needed-for the next 6 months -Diabetes mellitus type 2-continue current medications follow-up by our PACT clinical pharmacist He needs [employer] papers filled out-he needs to keep his insulin in refrigerator -Essential hypertension with blood pressure controlled with current medications He states watches his diet but not able to exercise due to his bilateral knee chronic pain He does not monitor blood pressure at home FOLLOW UP: ========= RTC -September follow-up with fasting labs Today's documentation was made using voice recognition software. This note may contain spelling/grammatical errors secondary to this software. Every effort is made to correct errors, but if mistakes are found they need to be taken in context. UPCOMING APPOINTMENTS: 04/20/2024 09:00 NHM/OPTOMETRY/WELSH/ 05/21/2024 09:45 CWM/NO/PAIN MD CLINIC 06/10/2024 09:30 CWM/SO/PHARM/PACT 2 No barriers; Patient understands and agrees to [...] of active outpatient prescriptions dispensed from this [place] (local) and dispensed from another VA or [...] [facility] No Known Allergies [facility] NO KNOWN ALLERGIES Med [...] the patient into personal health records (i.e. [employer]) are NOT included in this list. Non-VA medications documented outside this [place], remote inpatient orders (regardless of status) and remote clinic medications are NOT included in this list. The patient and provider must always discuss medications the patient is taking, regardless of where the medication was dispensed or obtained. OUTPT ACETAMINOPHEN 500MG TAB (Status = Active) TAKE TWO TABLETS BY MOUTH THREE TIMES DAILY NEEDED FOR PAIN Rx# [id number] Last Released: 03/18/24 Qty/Days Supply: Rx Expiration Date: 11/28/24 Refills Remainin OUTPT ATORVASTATIN CALCIUM 80MG TAB (Status = Active) TAKE ONE TABLET BY MOUTH AT BEDTIME FOR HIGH CHOLESTEROL Rx# [id number] Last Released: 03/18/24 Qty/Days Supply: Rx Expiration Date: 11/28/24 Refills Remainin Indication: FOR HIGH CHOLESTEROL OUTPT BUPRENORPHINE 5MCG/HR PATCH (Status = Active) APPLY 1 PATCH TO SKIN EVERY 5 DAYS (REMOVE PATCH BEFORE APPLYING A NEW PATCH) Rx# [id number] Last Released: 03/25/24 Qty/Days Supply: 04/04 Rx Expiration Date: 09/22/24 Refills Remainin Indication: FOR SEVERE CHRONIC PAIN OUTPT CHOLECALCIF 50MCG (D3-2,000UNIT) TAB (Status = Active) TAKE ONE TABLET BY MOUTH ONCE DAILY FOR VITAMIN SUPPLEMENTATION Rx# [id number] Last Released: 12/18/23 Qty/Days Supply: Rx Expiration Date: 12/15/24 Refills Remainin Indication: FOR VITAMIN D DEFICIENCY OUTPT DICLOFENAC NA 1% TOP GEL (Status = Active) APPLY 4 GRAMS TOPICALLY TWICE DAILY NEEDED FOR OSTEOARTHRITIS - USE DOSING CARD PROVIDED IN BOX Rx# [id number] Last Released: 05/21/23 Qty/Days Supply: Rx Expiration Date: 05/21/24 Refills Remainin Indication: FOR JOINT PAIN OUTPT EMPAGLIFLOZIN 25MG TAB (Status = Active) TAKE ONE TABLET BY MOUTH ONCE DAILY Rx# [id number] Last Released: 10/17/23 Qty/Days Supply: Rx Expiration Date: 10/17/24 Refills Remainin Indication: FOR TYPE 2 DIABETES MELLITUS OUTPT GABAPENTIN 100MG CAP (Status = ) TAKE ONE CAPSULE BY MOUTH EVERY MORNING AND TAKE TWO CAPSULES AT BEDTIME FOR NERVE PAIN Rx# [id number] Last Released: 12/12/23 Qty/Days Supply: 270/ Rx Expiration Date: 03/11/24 Refills Remainin Indication: FOR NERVE PAIN OUTPT GABAPENTIN 100MG CAP (Status = Active) TAKE ONE CAPSULE BY MOUTH THREE TIMES A DAY FOR 7 DAYS, THEN TAKE TWO CAPSULES THREE TIMES A DAY FOR 7 DAYS, THEN TAKE THREE CAPSULES THREE TIMES A DAY FOR 16 DAYS Rx# [id number] Last Released: 03/30/24 Qty/Days Supply: Rx Expiration Date: 04/25/24 Refills Remainin Indication: PAIN OUTPT HYDROCODONE 5MG/ACETAMINOPHEN 325MG TAB (Status = ) TAKE 1 TABLET BY MOUTH TWICE DAILY NEEDED FOR PAIN MAY USE UP TO 3 DAYS PER WEEK (NEXT FILL 03/09/24) Rx# [id number] Last Released: 02/10/24 Qty/Days Supply: Rx Expiration Date: 03/11/24 Refills Remainin Indication: FOR PAIN OUTPT HYDROCODONE 5MG/ACETAMINOPHEN 325MG TAB (Status = Active) TAKE 1 TABLET BY MOUTH TWICE DAILY FOR PAIN (NEXT FILL 04/19/24) Rx# [id number] Last Released: 03/22/24 Qty/Days Supply: Rx Expiration Date: 04/21/24 Refills Remainin Indication: FOR PAIN OUTPT INSULIN,ASPART(EQV-NOVLG)100UN/ ML FLXPEN (Status = Active) INJECT 25 UNITS SUBCUTANEOUSLY THREE TIMES A DAY INJECT 15 MINUTES BEFORE MEALS IF MEAL SKIPPED SKIP THE DOSE Rx# [id number] Last Released: 04/06/24 Qty/Days Supply: 08/04 Rx Expiration Date: 02/26/25 Refills Remainin Indication: FOR DIABETES OUTPT INSULIN,GLARGINE-YFGN 100UNIT/ML PEN 3ML (Status = ) INJECT 40 UNITS SUBCUTANEOUSLY TWICE DAILY FOR DIABETES Rx# [id number] Last Released: 12/05/23 Qty/Days Supply: Rx Expiration Date: 02/14/24 Refills Remainin Indication: FOR DIABETES OUTPT INSULIN,GLARGINE-YFGN 100UNIT/ML PEN 3ML (Status = Active) INJECT 46 UNITS SUBCUTANEOUSLY TWICE DAILY Rx# [id number] Last Released: 02/26/24 Qty/Days Supply: 08/04 Rx Expiration Date: 02/26/25 Refills Remainin Indication: FOR DIABETES OUTPT LIDOCAINE 5% PATCH (Status = Active) APPLY 1 PATCH TOPICALLY ONCE DAILY NEEDED (LEAVE PATCH ON FOR 12 HOURS, THEN REMOVE PATCH) Rx# [id number] Last Released: 11/28/23 Qty/Days Supply: Rx Expiration Date: 11/28/24 Refills Remainin Indication: BACK PAIN OUTPT LISINOPRIL 5MG TAB (Status = Active) TAKE ONE TABLET BY MOUTH ONCE DAILY TO CONTROL BLOOD PRESSURE Rx# [id number] Last Released: 01/29/24 Qty/Days Supply: Rx Expiration Date: 05/21/24 Refills Remainin OUTPT METFORMIN HCL 750MG 24HR SA TAB (Status = ) TAKE ONE TABLET BY MOUTH ONCE DAILY Rx# [id number] Last Released: 01/29/24 Qty/Days Supply: Rx Expiration Date: 02/14/24 Refills Remainin Indication: FOR TYPE 2 DIABETES MELLITUS OUTPT METFORMIN HCL 750MG 24HR SA TAB (Status = Active) TAKE ONE TABLET BY MOUTH ONCE DAILY Rx# [id number] Last Released: 02/26/24 Qty/Days Supply: Rx Expiration Date: 02/26/25 Refills Remainin Indication: FOR TYPE 2 DIABETES MELLITUS OUTPT SEMAGLUTIDE 0.25MG/0.375ML INJ PEN 3ML (Status = Active) INJECT 0.5MG SUBCUTANEOUSLY ONCE A WEEK FOR TYPE 2 DIABETES MELLITUS Rx# [id number] Last Released: 04/14/24 Qty/Days Supply: 11/02 Rx Expiration Date: 04/15/25 Refills Remainin Indication: FOR TYPE 2 DIABETES MELLITUS OUTPT SEMAGLUTIDE 1MG/0.75ML INJ PEN 3ML (Status = Discontinued) INJECT 1MG SUBCUTANEOUSLY ONCE A WEEK FOR TYPE 2 DIABETES MELLITUS Rx# [id number] Last Released: 02/26/24 Qty/Days Supply: 11/02 Rx Expiration Date: 11/27/24 Refills Remainin Indication: FOR TYPE 2 DIABETES MELLITUS SUPPLIES OUTPT GLUCOSE SENSOR DEXCOM G7 (Status = Active) USE 1 SENSOR DIRECTED EVERY 10 DAYS Rx# [id number] Last Released: 03/22/24 Qty/Days Supply: Rx Expiration Date: 12/11/24 Refills Remainin Medication Reconciliation: Outpatient: Has the patient been taking medications as documented in the EMLR? YES: The patient has been taking medications as documented in the EMLR. Essential Medication List for Review used to complete this medication reconciliation. INCLUDED IN THIS LIST: Alphabetical list of active outpatient prescriptions dispensed from this [place] (local) and dispensed from another [place] or [facility] facility (remote) as well as inpatient [...] [facility] No Known Allergies [facility] NO KNOWN ALLERGIES Med [facility] NoGloary (Tool #1) INCLUDED IN THIS LIST: Alphabetical list of active outpatient prescriptions dispensed from this [place] (local) and dispensed from another [place] or [facility] facility (remote) as well as inpatient orders (local pending and active), local clinic medications, locally documented non-VA medications, and local prescriptions that have or been discontinued in the past 90 days. Non-VA Meds Last Documented On: Nov 20, 2017 NOTE The display of VA prescriptions dispensed from another [place] or [facility] facility (remote) is limited to active outpatient prescription entries matched to National Drug File at the originating site and may not include some items such as investigational drugs, compounds, etc. NOT INCLUDED IN THIS LIST: Medications self-entered by the patient into personal health records (i.e. [employer]) are NOT included in this list. Non-VA medications documented outside this [place], remote inpatient orders (regardless of status) and remote clinic medications are NOT included in this list. The patient and provider must always discuss medications the patient is taking, regardless of where the medication was dispensed or obtained. OUTPT ACETAMINOPHEN 500MG TAB (Status = Active) TAKE TWO TABLETS BY MOUTH THREE TIMES DAILY NEEDED FOR PAIN Rx# [id number] Last Released: 03/18/24 Qty/Days Supply: Rx Expiration Date: 11/28/24 Refills Remainin OUTPT ATORVASTATIN CALCIUM 80MG TAB (Status = Active) TAKE ONE TABLET BY MOUTH AT BEDTIME FOR HIGH CHOLESTEROL Rx# [id number] Last Released: 03/18/24 Qty/Days Supply: Rx Expiration Date: 11/28/24 Refills Remainin Indication: FOR HIGH CHOLESTEROL OUTPT BUPRENORPHINE 5MCG/HR PATCH (Status = Active) APPLY 1 PATCH TO SKIN EVERY 5 DAYS (REMOVE PATCH BEFORE APPLYING A NEW PATCH) Rx# [id number] Last Released: 03/25/24 Qty/Days Supply: 04/04 Rx Expiration Date: 09/22/24 Refills Remainin Indication: FOR SEVERE CHRONIC PAIN OUTPT CHOLECALCIF 50MCG (D3-2,000UNIT) TAB (Status = Active) TAKE ONE TABLET BY MOUTH ONCE DAILY FOR VITAMIN SUPPLEMENTATION Rx# [id number] Last Released: 12/18/23 Qty/Days Supply: 100 Rx Expiration Date: 12/15/24 Refills Remainin Indication: FOR VITAMIN D DEFICIENCY OUTPT DICLOFENAC NA 1% TOP GEL (Status = Active) APPLY 4 GRAMS TOPICALLY TWICE DAILY NEEDED FOR OSTEOARTHRITIS - USE DOSING CARD PROVIDED IN BOX Rx# [id number] Last Released: 05/21/23 Qty/Days Supply: 100/20 Rx Expiration Date: 05/21/24 Refills Remainin Indication: FOR JOINT PAIN OUTPT EMPAGLIFLOZIN 25MG TAB (Status = Active) TAKE ONE TABLET BY MOUTH ONCE DAILY Rx# [id number] Last Released: 10/17/23 Qty/Days Supply: 90 Rx Expiration Date: 10/17/24 Refills Remainin Indication: FOR TYPE 2 DIABETES MELLITUS OUTPT GABAPENTIN 100MG CAP (Status = ) TAKE ONE CAPSULE BY MOUTH EVERY MORNING AND TAKE TWO CAPSULES AT BEDTIME FOR NERVE PAIN Rx# [id number] Last Released: 12/12/23 Qty/Days Supply: 270/ Rx Expiration Date: 03/11/24 Refills Remainin Indication: FOR NERVE PAIN OUTPT GABAPENTIN 100MG CAP (Status = Active) TAKE ONE CAPSULE BY MOUTH THREE TIMES A DAY FOR 7 DAYS, THEN TAKE TWO CAPSULES THREE TIMES A DAY FOR 7 DAYS, THEN TAKE THREE CAPSULES THREE TIMES A DAY FOR 16 DAYS Rx# [id number] Last Released: 03/30/24 Qty/Days Supply: Rx Expiration Date: 04/25/24 Refills Remainin Indication: PAIN OUTPT HYDROCODONE 5MG/ACETAMINOPHEN 325MG TAB (Status = ) TAKE 1 TABLET BY MOUTH TWICE DAILY NEEDED FOR PAIN MAY USE UP TO 3 DAYS PER WEEK (NEXT FILL 03/09/24) Rx# [id number] Last Released: 02/10/24 Qty/Days Supply: Rx Expiration Date: 03/11/24 Refills Remainin Indication: FOR PAIN OUTPT HYDROCODONE 5MG/ACETAMINOPHEN 325MG TAB (Status = Active) TAKE 1 TABLET BY MOUTH TWICE DAILY FOR PAIN (NEXT FILL 04/19/24) Rx# [id number] Last Released: 03/22/24 Qty/Days Supply: Rx Expiration Date: 04/21/24 Refills Remainin Indication: FOR PAIN OUTPT INSULIN,ASPART(EQV-NOVLG)100UN/ ML FLXPEN (Status = Active) INJECT 25 UNITS SUBCUTANEOUSLY THREE TIMES A DAY INJECT 15 MINUTES BEFORE MEALS IF MEAL SKIPPED SKIP THE DOSE Rx# [id number] Last Released: 04/06/24 Qty/Days Supply: 08/04 Rx Expiration Date: 02/26/25 Refills Remainin Indication: FOR DIABETES OUTPT INSULIN,GLARGINE-YFGN 100UNIT/ML PEN 3ML (Status = ) INJECT 40 UNITS SUBCUTANEOUSLY TWICE DAILY FOR DIABETES Rx# [id number] Last Released: 12/05/23 Qty/Days Supply: Rx Expiration Date: 02/14/24 Refills Remainin Indication: FOR DIABETES OUTPT INSULIN,GLARGINE-YFGN 100UNIT/ML PEN 3ML (Status = Active) INJECT 46 UNITS SUBCUTANEOUSLY TWICE DAILY Rx# [id number] Last Released: 02/26/24 Qty/Days Supply: 08/04 Rx Expiration Date: 02/26/25 Refills Remainin Indication: FOR DIABETES OUTPT LIDOCAINE 5% PATCH (Status = Active) APPLY 1 PATCH TOPICALLY ONCE DAILY NEEDED (LEAVE PATCH ON FOR 12 HOURS, THEN REMOVE PATCH) Rx# [id number] Last Released: 11/28/23 Qty/Days Supply: Rx Expiration Date: 11/28/24 Refills Remainin Indication: BACK PAIN OUTPT LISINOPRIL 5MG TAB (Status = Active) TAKE ONE TABLET BY MOUTH ONCE DAILY TO CONTROL BLOOD PRESSURE Rx# [id number] Last Released: 01/29/24 Qty/Days Supply: Rx Expiration Date: 05/21/24 Refills Remainin OUTPT METFORMIN HCL 750MG 24HR SA TAB (Status = ) TAKE ONE TABLET BY MOUTH ONCE DAILY Rx# [id number] Last Released: 01/29/24 Qty/Days Supply: Rx Expiration Date: 02/14/24 Refills Remainin Indication: FOR TYPE 2 DIABETES MELLITUS OUTPT METFORMIN HCL 750MG 24HR SA TAB (Status = Active) TAKE ONE TABLET BY MOUTH ONCE DAILY Rx# [id number] Last Released: 02/26/24 Qty/Days Supply: Rx Expiration Date: 02/26/25 Refills Remainin Indication: FOR TYPE 2 DIABETES MELLITUS OUTPT SEMAGLUTIDE 0.25MG/0.375ML INJ PEN 3ML (Status = Active) INJECT 0.5MG SUBCUTANEOUSLY ONCE A WEEK FOR TYPE 2 DIABETES MELLITUS Rx# [id number] Last Released: 04/14/24 Qty/Days Supply: 11/02 Rx Expiration Date: 04/15/25 Refills Remainin Indication: FOR TYPE 2 DIABETES MELLITUS OUTPT SEMAGLUTIDE 1MG/0.75ML INJ PEN 3ML (Status = Discontinued) INJECT 1MG SUBCUTANEOUSLY ONCE A WEEK FOR TYPE 2 DIABETES MELLITUS Rx# [id number] Last Released: 02/26/24 Qty/Days Supply: 11/02 Rx Expiration Date: 11/27/24 Refills Remainin Indication: FOR TYPE 2 DIABETES MELLITUS SUPPLIES OUTPT GLUCOSE SENSOR DEXCOM G7 (Status = Active) USE 1 SENSOR DIRECTED EVERY 10 DAYS Rx# [id number] Last Released: 03/22/24 Qty/Days Supply: Rx Expiration Date: 12/11/24 Refills Remainin /lora/ VENKATA MARES MD PRIMARY CARE PHYSICIAN Signed: 04/19/2024 15:49 VENKATA MARES Apr 19, 2024 03:04 PM PREVENTIVE MEDICIN E NURSING NOTE: LOCAL TITLE: CLINICAL REMINDERS/NURSING STANDARD TITLE: PREVENTIVE MEDICINE NURSING NOTE DATE OF NOTE: APR 19, 2024@15:04 ENTRY DATE: APR 19, 2024@15:04:41 AUTHOR: MANDO COOLEY COSIGNER: URGENCY: STATUS: COMPLETED Homelessness/Food Insecurity Screen: In the past 2 months, have you been living in stable housing that you own, rent, or stay in as part of a household? Yes - Living in stable housing. Are you worried or concerned that in the next 2 months you may NOT have stable housing that you own, rent, or stay in as part of a household? No - Not worried about housing near future [facility] reports the following: Within the past 12 months, you worried whether your food would run out before you got money to buy more. Never true Within the past 12 months, the food you bought just didn't last and you didn't have money to get more. Never true /es/ MANDO COOLEY LPN Licensed Practical Nurse Signed: 04/19/2024 15:05 MANDO COOLEY [place]
--- OUTSIDE RECORDS SUMMARY | 2024-09-30 08:41 | XMS_ITS | Encounter Summary ---
Author Name [facility] Address [address] [place] [address] Care Team Providers Care Energy Economist Name Role Phone CHANI RHODES Primary Care [...] to Policy Zayas [employer] DENTAL [employer]URANCE [facility] H[facility] February 03, 2022 [id number] EMERITA BAUTISTA PATIENT [facility] MEDICAID MEDICAID MEDIC AID Oct 06, 2013 MEDICAI D [id number] EMERITA BAUTISTA PATIENT MEDICARE (WNR) MEDICARE (M) PART A Mar 06, 2015 PART A [id number] [phone] EMERITA BAUTISTA PATIENT MEDICARE (WNR) MEDICARE (M) PART B Mar 06, 2015 PART B [id number] EMERITA BAUTISTA PATIENT MEDICARE (WNR) MEDICARE (M) PART B Mar 06, 2015 PART B [id number] EMERITA BAUTISTA PATIENT MEDICARE (WNR) MEDICARE (M) PART A Mar 06, 2015 PART A [id number] EMERITA BAUTISTA PATIENT MEDICARE (WNR) MEDICARE (M) PART B Mar 06, 2015 PART B [id number] EMERITA BAUTISTA PATIENT MEDICARE (WNR) MEDICARE (M) PART A Mar 06, 2015 PART A [id number] EMERITA BAUTISTA PATIENT MEDICARE (WNR) MEDICARE (M) PART B Mar 06, 2015 PART B [id number] [phone] EMERITA BAUTISTA PATIENT Selected Encounter This section includes the information on record at [place] for the Encounter. Date/Time Encounter Type Encounter Description Reason Provider Source Apr 14, 2024 09:30 AM MTMS BY PHARM MARY 15 MIN CLINICAL PHARMACY ICD-10-CM E11.9 Type 2 diabetes mellitus without complications JOAQUÍN BECK [facility] Encounter Template Text not used by [place] Assessments - Encounter Diagnoses This section includes the primary and secondary diagnoses documented for the Encounter. Date/Time Primary/Secondary Diagnosis Diagnosis Name Provider Source Apr 14, 2024 10:07 AM PRIMARY Type 2 diabetes mellitus without complications TAO BECK [place] Plan of Treatment: Future Appointments (+ 6 months) and Future Tests (+/- 45 days) The Plan of Treatment section includes future care activities for the patient from all [place] treatmentfacilities. This section includes future appointments and future orders which are active, pending or scheduled. Future Appointments This section includes appointments that were scheduled to occur 6 months from the date of the Encounter, up to a maximum of 20 appointments. The data comes from all [place] treatment facilities. Appointment Date/Time Appointment Type Appointme nt Facility Name Apr 19, 2024 03:00 PM AMBULATORY - MEDICINE [facility] Apr 20, 2024 09:00 AM AMBULATORY - MEDICINE [facility] [place] [facility] Apr 28, 2024 03:00 PM AMBULATORY - MEDICINE [facility] [place] [facility] May 21, 2024 09:45 AM AMBULATORY - MEDICINE [facility] [place] [facility] Jun 10, 2024 09:30 AM AMBULATORY - MEDICINE [facility] [place] [facility] Jun 23, 2024 08:00 AM AMBULATORY - REHAB MEDICIN E [place] Jun 28, 2024 07:30 AM AMBULATORY - REHAB MEDICIN E [place] Jul 01, 2024 02:45 PM AM[facility]UL[facility] [place] [facility] Jul 06, 2024 08:00 AM [facility] Jul 13, 2024 10:00 AM AMBULATORY - REHAB MEDICIN E [place] Jul 28, 2024 10:00 AM AMBULATORY - REHAB MEDICIN E [place] Aug 05, 2024 09:30 AM AMBULATORY [facility] MEDIC[facility] [place] [facility] Aug 19, 2024 09:00 AM [facility] Aug 24, 2024 11:00 AM AMBULATORY - PSYCHIATRY [facility] [place] [facility] Aug 24, 2024 03:00 PM AMBULATORY - REHAB MEDICIN E [place] Aug 27, 2024 10:00 AM AMBULATORY - MEDICINE [facility] [place] [facility] Sep 16, 2024 08:30 AM [facility] Sep 23, 2024 03:30 PM AM[facility]UL[facility]ORY [facility] MEDICINE [facility] [place] [facility] Sep 24, 2024 12:00 PM AM[facility]ULATORY - MED[facility]INE [facility] [place] [facility] Sep 30, 2024 08:55 AM AMBULATORY - MEDICINE [facility] [place] [facility] Social History: Smoking Status (Most current) and Tobacco Use (All prior to encounter date) This section includes the most current, and the historical, smoking and tobacco- related health factors from the [place] facility where the Encounter took place. Current Smoking Status This section includes the most current smoking, or tobacco-related health factor, from the [place] facility where the Encounter took place. Date/Time Current Smoking Status Comment Facil [facility] Mar 08, 2024 09:00 AM VA-TOBACCO FORMER USER [place] Tobacco Use History This section includes a history of the smoking, or tobacco-related health factors, that were collected on or before the date of the Encounter. The data comes from the [place] facility where the Encounter took place. Date/Time Smoking Status/Tobacco Use Comment F acility Mar 08, 2024 09:00 AM VA-TOBACCO QUIT 15 YRS OR MORE [place] Mar 27, 2022 09:30 AM VA-TOBACCO FORMER USER [place] Mar 27, 2022 09:30 AM VA-TOBACCO QUIT 15 YRS OR MORE [place] Dec 22, 2018 10:29 AM VA-TOBACCO FORMER USER [place] Dec 22, 2018 10:29 AM VA-TOBACCO QUIT 15 YRS OR MORE [place] Mar 19, 2018 11:33 AM VA-TOBACCO FORMER USER [place] Mar 19, 2018 11:33 AM VA-TOBACCO QUIT 15 YRS OR MORE [place] May 13, 2017 01:22 PM QUIT TOBACCO USE > 7 YEARS AGO quit 24 yrs ago [place] Nov 15, 2015 09:48 AM QUIT TOBACCO USE > 7 YEARS AGO States he last smoked 21 years ago [place] Dec 07, 2009 02:51 PM QUIT TOBACCO USE > 7 YEARS AGO [place] Advance Directives: All historical and current Section Date Range: From patient's date of to the date document was created. This section includes ALL of a patient's completed or amended [place] Advance and Rescinded Directives. The entries below indicate that a directive exists for the patient, but an actual copy is not included with this document. The data comes from all [place] facilities. Date Advance Directives Provider Source May [...] the Encounter. The data comes from all [place] treatment facilities. Date/Time Radiology Report Provider Source Apr 27, 2024 08:46 AM KNEE 3 VIEWS (RIGH T): EMERITA BAUTISTA [id number] -1965 M [facility] Date: APR 27, 2024@08:46 Req Phys: VENKATA MARES F Pat Loc: CWM/SO/PACT EIGHT WH (Req'g Lo Img Loc: [facility]BUILDING 1 Service: Unknown [facility] [place] [facility] , (Case 62 COMPLETE) KNEE 1 OR 2 VIEWS (RIGHT) (RAD Detailed) CPT:55870 Proc Modifiers : BILATERAL EXAM Reason for Study: chronic pain (Case 63 COMPLETE) KNEES BILATERAL STANDING (RAD Detailed) CPT:24301 (Case 64 COMPLETE) KNEE 1 OR 2 VIEWS (LEFT) (RAD Detailed) CPT:17210 Proc Modifiers : BILATERAL EXAM Clinical History: Report Status: Verified Date Reported: APR 27, 2024 Date Verified: APR 27, 2024 Pill Maker E-Sig:/ES/TERESA BLOUNT JR Report: Study: AP weight-bearing [...] Primary Interpreting Staff: TERESA BLOUNT JR, Radiologist (Pill Maker) /TERESA AGUILAR JR [facility] Encounter Notes: All associated encounter notes This section contains the clinical notes associated to the Encounter. Date/Time Encounter Note(s) Provider Source Apr 14, 2024 09:36 AM [facility]: LOCAL TITLE: PHARMACY CLINIC NOTE STANDARD TITLE: PHARMACY OUTPATIENT NOTE DATE OF NOTE: APR 14, 2024@09:36 ENTRY DATE: APR 14, 2024@09:36:42 AUTHOR: SHANDA BECK COSIGNER: URGENCY: STATUS: COMPLETED Patient Name: EMERITA BAUTISTA was seen via the [facility] for follow-up for diabetes management treatment. : Sep Age: 58 Sex: MALE Race: BLACK OR Subjective: Pt walks w/ cane. His back and knee are giving him lots of pain. Pt is seeing outside provider today to evaluate whether or not he can still work. Pt appears tired and [facility] not [facility] w[facility]. REASON FOR EDUCATION VISIT TODAY: Pt presents [...] [facility]. pt went to [place] 2 weeks ago for sick call for [...] note on 12/16/22: Pt presents at the [facility] for persistent watery diarrhea - 4-5 [...] PP <180mg/dL. Allergies: Patient has answered NKA Target Goals: A1C: 7%; FB-130 mg/dL; 2HRS PP <180mg/dL. Allergies: Patient has answered NKA PERTINENT INFORMATION: Active problems - Computerized Problem List is the source for the followin. Abdominal pain 2. CLBP - chronic low back pain 3. Cervical radiculopathy 4. HTN - Hypertension ([facility] [id number]) 5. Diabetes Mellitus Type 2 ([facility] [id number]) 6. Allergic Rhinitis ([facility] [id number]) 7. Vitamin D Deficiency ([facility] [id number]) 8. Hyperlipidemia ([facility] [id number]) 9. Fatty liver 10. Fatigue 11. Edema of lower leg 12. Back pain 13. History of cholecystectomy 14. H/O: osteoarthritis 15. Depression 16. Onychomycosis of toenails 17. Knee pain (SNOMED CT [id number]) 18. Osteoarthritis 19. Foot pain 20. Diabetic neuropathy 21. Erectile dysfunction 22. Type 2 diabetes mellitus 23. Flat Feet * 24. Depressive disorder (SNOMED CT [id number]) 25. History of male erectile disorder (SNOMED CT [id number]) 26. Disorder of urethra 27. PCP: Gm: [phone] 28. Knee: arthralgia 29. Ankle: arthralgia 30. Appendectomy When Done for Indicated Purpose at Time of Other Major Procedur 31. Hearing loss 32. Tinnitus 33. Arthritis, Traumatic, Primary CURRENT DIABETES MEDICATIONS Diabetes Medication Regimen: -- insulin glargine (Semglee) 40 units bid (and split into two seperate injections);Pt did not increase the dose as instructed at the last visit -- Insulin Novolog 25 units TID (B/L/D) -- metformin SA * 750 mg in AM - pt unable to tolerate higher dose GI ADR -- empagliflozin 25mg daily in AM - increased dose on 01/2023 -eGFR 76 ml/min on 05/2023 ; eGFR 68ml/min on 03/2024 Previous DM Medications: -- liraglutide 1.8mg daily - stopped on 09/19/23 - Trulicity - stopped when converted back to semaglutide -- Semaglutide 0.5 mg weekly - pt restarted on 10/17/23 ; stopped d/t ADR:stinky burps, abdominal pains ; stools were loose Adherence: Oral meds: denies missed doses Insulin: yes, Labs: HEMOGLOBIN A1C TREND Collection DT Spec HGBA1c 03/08/2024 09:42 BLOOD 7.4 H 11/27/2023 10:26 BLOOD 8.2 H 05/07/2023 14:35 BLOOD 7.2 H 09/23/2022 09:57 BLOOD 8.0 H 03/14/2022 11:36 BLOOD 7.3 H CBC TREND Collection DT Spec WBC RBC HGB HCT MCV MCH PLT 03/08/2024 09:42 BLOOD 6.55 5.57 17.0 50.1 89.9 30.5 123 L 11/27/2023 10:26 BLOOD 5.30 5.70 H 17.2 H 51.0 H 89.5 30.2 131 L 05/07/2023 14:35 BLOOD 5.09 5.63 17.3 H 50.8 H 90.2 30.7 143 11/06/2022 14:26 BLOOD 4.98 5.63 17.0 49.4 87.7 30.2 143 09/23/2022 09:57 BLOOD 5.03 5.47 16.6 48.4 88.5 30.3 124 L CHEM 7 TREND LAB CUMULATIVE SELECTED Collection DT Spec GLUCOSE BUN CREATIN Sodium K+/Pot CL CO2 03/08/2024 09:42 SERUM 230 H 14 1.22 139 4.2 108 22 11/25/2023 09:22 SERUM 271 H 15 1.15 139 4.5 106 23 05/21/2023 10:31 SERUM 127 H 12 1.11 140 4.4 106 26 05/07/2023 14:35 SERUM 153 H 16 1.25 142 4.2 105 26 12/10/2022 13:22 SERUM 16 1.05 LAB CUMULATIVE SELECTED 2 No selection items chosen for this component. CHEM 7 Results Collection DT Spec Sodium K+/Pot CL CO2 GLUCOSE BUN 03/08/2024 09:42 SERUM 139 4.2 108 22 230 H 14 11/25/2023 09:22 SERUM 139 4.5 106 23 271 H 15 05/21/2023 10:31 SERUM 140 4.4 106 26 [...] Spec CHOL HDL CHO/HDL LDL-d LDL-c TRIG 03/08/2024 09:42 SERUM 126 30 L 4.2 57 197 H 11/25/2023 09:22 SERUM 228 H 31 L 7.4 145 H Reflex to dLDL 359 H 05/21/2023 10:31 SERUM 189 35 L 5.4 110 219 H 05/07/2023 14:35 SERUM 203 H 35 L 5.8 118 251 H 09/23/2022 09:57 SERUM 160 32 L 5.0 95 Reflex to dLDL 328 H THYROID PANEL Collection DT Specimen Test Name Result Units Ref Range 05/07/2023 14:35 SERUM TSH 0.79 uIU/mL 0.35 - 5.00 06/17/2013 11:20 SERUM Free T4 SR-REF 0.85 ng/dL 0.6 - 1.6 VITAMIN D 25-OH Collection DT Specimen Test Name Result Units Ref Range 09/23/2022 09:57 SERUM VITAMIN D (25-OH) <13 L ng/mL 20 - 50 SrCr (last 6 weeks): CREATININE-EGFR 03/08/24 09:42 1.22 CRCL IBW: CrCl(est): 91.6 mL/min (Creat:1.22 03/08/24) CRCL ACT: 100 mL/min CRCL ADJ: 91.6 mL/min (03/08/24) lft's: wnl on 03/2024 Vitals: Weight (BMI): 272 lb [123.38 kg] (03/08/2024 09:14) Height: 77 in [195.6 cm] (12/29/2023 10:05) BMI: 32.3 Active and Recently Outpatient Medications (including Supplies): Active Outpatient Medications Status Active Outpatient Medications (including Supplies): ACETAMINOPHEN 500MG TAB TAKE TWO TABLETS BY MOUTH THREE ACTIVE TIMES DAILY NEEDED FOR PAIN ATORVASTATIN CALCIUM 80MG TAB TAKE ONE TABLET BY MOUTH AT ACTIVE BEDTIME FOR HIGH CHOLESTEROL BUPRENORPHINE 5MCG/HR PATCH APPLY 1 PATCH TO SKIN EVERY 5 ACTIVE DAYS (REMOVE PATCH BEFORE APPLYING A NEW PATCH) CHOLECALCIF 50MCG (D3-2,000UNIT) TAB TAKE ONE TABLET BY ACTIVE MOUTH ONCE DAILY FOR VITAMIN SUPPLEMENTATION DICLOFENAC NA 1% TOP GEL APPLY 4 GRAMS TOPICALLY TWICE ACTIVE DAILY NEEDED FOR OSTEOARTHRITIS - USE DOSING CARD PROVIDED IN BOX EMPAGLIFLOZIN 25MG TAB TAKE ONE TABLET BY MOUTH ONCE DAILY ACTIVE GABAPENTIN 100MG CAP TAKE ONE CAPSULE BY MOUTH THREE TIMES ACTIVE A DAY FOR 7 DAYS, THEN TAKE TWO CAPSULES THREE TIMES A DAY FOR 7 DAYS, THEN TAKE THREE CAPSULES THREE TIMES A DAY FOR 16 DAYS GLUCOSE SENSOR DEXCOM G7 USE 1 SENSOR DIRECTED EVERY 10 ACTIVE DAYS HYDROCODONE 5MG/ACETAMINOPHEN 325MG TAB TAKE 1 TABLET BY ACTIVE MOUTH TWICE DAILY FOR PAIN (NEXT FILL 04/19/24) INSULIN,ASPART(EQV-NOVLG)100UN/ML FLXPEN INJECT 25 UNITS ACTIVE SUBCUTANEOUSLY THREE TIMES A DAY INJECT 15 MINUTES BEFORE MEALS IF MEAL SKIPPED SKIP THE DOSE INSULIN,GLARGINE-YFGN 100UNIT/ML PEN 3ML INJECT 46 UNITS ACTIVE SUBCUTANEOUSLY TWICE DAILY LIDOCAINE 5% PATCH APPLY 1 PATCH TOPICALLY ONCE DAILY ACTIVE NEEDED (LEAVE PATCH ON FOR 12 HOURS, THEN REMOVE PATCH) LISINOPRIL 5MG TAB TAKE ONE TABLET BY MOUTH ONCE DAILY TO ACTIVE CONTROL BLOOD PRESSURE METFORMIN HCL 750MG 24HR SA TAB TAKE ONE TABLET BY MOUTH ACTIVE ONCE DAILY MEDICATION RECONCILIATION:done BG readings: Date: 10/17/23 Dexcom G7 14 [...] LOW 0% VERY LOW sensor usage: 93% Date: 04/14/24 Dexcom G7 14 day avgt: 205 mg/dl; 13% VERY HIGH 59% HIGH 27% IN RANGE <1% LOW 0% VERY LOW sensor usage: 93% NUTRITION: breakfast: grapefruit; pt is in a lot of pain sometimes skips breakfast lunch: on a go 1PM ; pt makes food at home. Lot of times it's sandwiches on a go dinner: 7PM: varies, daughter or or self [...] => 275 lbs 11/2023 => 277 lbs 03/2024 => 272 lbs ASSESSMENT/PLAN: Per prev: Reviewed the dexcom G7 upload w/ [place]. Time in target drastically reduced to 13%. [...] highly elevated. f/up soon to evaluate progress. 04/14/24: Pt's dexcom upload reveals time in target at 27% only. Despite the fact that his last A1C is lower at 7.4% his current BG levels are running high. Pt reports to have had difficulty tolerating semaglutide at higher dose of 1 mg - recommend to retrial it at a lower dose pt in agreement. If that does not work may consider placing NF for trulicity? Counseled pt. REcommend to increase dose of insulin glargine as well. REviewed nutrition. f/u in June. DIABETES A1c is above goal of <7% - Medication management Diabetes Diabetes Medication Regimen: - INCREASE insulin glargine (Semglee) to 42 units bid (and split into two seperate injections); if BG continues to be above 200 - may further increase to 44 units bid - c/t insulin Novolog 25 units TID (B/L/D) --c/t metformin SA * 750 mg in AM -- restart semaglutide at 0.5 mg weekly *pt unable to tolerate 1 mg dose* --c/t empagliflozin 25mg daily in AM - [...] H mg/G (03/2022) Most recent visit to cap maker: 10/2021 Most recent visit to optometry: 04/2022; Type 2 diabetes mellitus with moderate nonproliferative diabetic retinopathy with macular edema, right eye; Type 2 diabetes mellitus with mild nonproliferative diabetic retinopathy without macular edema, left eye Clinic's Next Scheduled Follow-up:June, No barriers; Patient understands and agrees to current treatment plan. If he has any questions, concerns, or changes in current health status he will call or [facility] FUTURE APPOINTMENTS: 04/19/2024 15:00 CWM/SO/PACT EIGHT 04/20/2024 09:00 NHM/OPTOMETRY/[facility]EL[facility]/ 05/21/2024 09:45 CWM/NO/PAIN CLINIC DM type is :t2d Length of Visit: 30 minutes PBM PharmD Pharmacotherapy Rem V12: PHARMACIST INTERVENTIONS: TYPE 2 DIABETES MELLITUS Medication Intervention(s) Adjust dose or frequency of current medication due to other reason Plan: INCRESAE DOSE OF INSULIN GLARGINE Initiate new medication Plan: RESTART SEMAGLUTIDE AT A LOWER DOSE Medication monitoring, no dosage change required, continue to monitor and assess /lora/ SHANDA BECK CLINICAL REFRIGERATOR REPAIR TECHNICIAN Signed: 04/14/2024 10:07 Receipt Acknowledged By: 04/15/2024 17:21 /lora/ VENKATA MARES MD PRIMARY CARE PHYSICIAN SHANDA BCEK [place]
--- OUTSIDE RECORDS SUMMARY | 2024-09-30 08:42 | XMS_ITS ---
Author Name [facility] [place] [facility] [place] Address [address] [place] [address] Care Team Providers Care Manager Exchange Name Role Phone CHANI RHODES Primary Care [...] Zayas [employer] DENTAL DENTAL INSURANCE [facility] February 03, 2022 [id number] EMERITA BAUTISTA PATIENT [facility] MEDICAID MEDICAID MEDIC AID Oct 06, 2013 MEDICAI D [id number] EMERITA BAUTISTA PATIENT MEDICARE (WNR) MEDICARE (M) PART A Mar 06, 2015 PART A [id number] EMERITA BAUTISTA PATIENT MEDICARE (WNR) MEDICARE (M) PART B Mar 06, 2015 PART B [id number] [phone] EMERITA BAUTISTA PATIENT MEDICARE (WNR) MEDICARE (M) PART B Mar 06, 2015 PART B [id number] EMERITA BAUTISTA PATIENT MEDICARE (WNR) MEDICARE (M) PART A Mar 06, 2015 PART A [id number] EMERITA BAUTISTA PATIENT MEDICARE (WNR) MEDICARE (M) PART B Mar 06, 2015 PART B [id number] [phone] EMERITA BAUTISTA PATIENT MEDICARE (WNR) MEDICARE (M) PART B Mar 06, 2015 PART B [id number] EMERITA BAUTISTA PATIENT MEDICARE (WNR) MEDICARE (M) PART A Mar 06, 2015 PART A [id number] EMERITA BAUTISTA PATIENT Selected Encounter This section includes the information on record at [place] for the Encounter. Date/Time Encounter Type Encounter Description Reason Provider Source Apr 28, 2024 03:00 PM COMPRE OPH EXAM EST PT 1/> OPTOMETRY ICD-10-CM H34.8110 Central retinal vein occls, right eye, with macular edema MEJIA WELSH [facility] Encounter Template Text not used by [place] Assessments - Encounter Diagnoses This section includes the primary and secondary diagnoses documented for the Encounter. Date/Time Primary/Secondary Diagnosis Diagnosis Name Provider Source Apr 30, 2024 11:35 AM PRIMARY Central retinal vein occls, right eye, with macular edema [facility] [place] [facility] Apr 30, 2024 11:35 AM SECONDARY Combined forms of age-related cataract, bilateral MEJIA WELSH [facility] [place] [facility] Apr 30, 2024 11:35 AM SECONDARY Dry eye syndrome of bilateral lacrimal glands [facility] [place] [facility] Apr 30, 2024 11:35 AM SECONDARY Presbyopia [facility] [place] [facility] Apr 30, 2024 11:35 AM SECONDARY Type 2 diab with mild nonp rtnop without mclr edema, l eye [facility] WEL[facility] Plan of Treatment: Future Appointments (+ 6 months) and Future Tests (+/- 45 days) The Plan of Treatment section includes future care activities for the patient from all [place] treatmentfacilities. This section includes future appointments and future orders which are active, pending or scheduled. Future Appointments This section includes appointments that were scheduled to occur 6 months from the date of the Encounter, up to a maximum of 20 appointments. The data comes from all [place] treatment [facility]. Appointment Date/Time Appointment Type Appointme nt Facility Name May 21, 2024 09:45 AM AMBULATORY - MEDICINE [facility] [place] [facility] Jun 10, 2024 09:30 AM AMBULATORY - MEDICINE [place] [facility] Jun 23, 2024 08:00 AM AMBULATORY - REHAB [facility] Jun 28, 2024 07:30 AM AMBULATORY - RE[facility] Jul 01, 2024 02:45 PM AMBULATORY - MEDICINE [place] [facility] Jul 06, 2024 08:00 AM AMBULATORY - MEDICINE [facility] Jul 13, 2024 10:00 [facility] Jul 28, 2024 10:00 AM AM[facility] - [facility] Aug 05, 2024 09:30 AM AMBULATORY - MEDICINE [place] [facility] Aug 19, 2024 09:00 AM [facility] Aug 24, 2024 11:00 AM AMBULATORY - PSYCHIATRY [place] [facility] [place] [facility] Aug 24, 2024 03:00 [facility] Aug 27, 2024 10:00 AM AMBULATORY - [place]ICINE [place] [facility] Sep 16, 2024 08:30 AM [facility] Sep 23, 2024 03:30 PM AMBULATORY - MEDICINE [place] [facility] Sep 24, 2024 12:00 PM AMBULATORY - MEDICINE [place] [facility] Sep 30, 2024 08:55 AM AMBULATORY - MEDICINE [place] [place] [facility] Oct 15, 2024 08:00 AM AM[facility]ATORY [facility] Oct 27, 2024 09:30 AM AMBULATORY - MEDICINE [place] [facility] Social History: Smoking Status (Most current) and Tobacco Use (All prior to encounter date) This section includes the most current, and the historical, smoking and tobacco- related health factors from the [place] facility where the Encounter took place. Current Smoking Status This section includes the most current smoking, or tobacco-related health factor, from the [place] facility where the Encounter took place. Date/Time Current Smoking Status Comment Facil ity Mar 11, 2023 08:30 AM VA-TOBACCO FORMER USER [facility] Tobacco Use History This section includes a history of the smoking, or tobacco-related health factors, that were collected on or before the date of the Encounter. The data comes from the [place] facility where the Encounter took place. Date/Time Smoking Status/Tobacco Use Comment F acility Mar 11, 2023 08:30 AM VA-TOBACCO QUIT [facility] Dec 27, 2020 02:00 PM VA-TOBACCO FORMER USER [place] [facility] Dec 27, 2020 02:00 PM [place]-TO[place]ACCO QUIT 15 YRS OR MORE [facility] Advance Directives: All historical and current Section Date Range: From patient's date of to the date document was created. This section includes ALL of a patient's completed or amended [place] Advance and Rescinded Directives. The entries below indicate that a directive exists for the patient, but an actual copy is not included with this document. The data comes from all [place] facilities. Date Advance Directives Provider Source May [...] the Encounter. The data comes from all [place] treatment facilities. Date/Time Radiology Report Provider Source Apr 27, 2024 08:46 AM KNEE 3 VIEWS (SAAD T): EMERITA BAUTISTA [id number] -[id number] M Exm Date: APR 27, 2024@08:46 Req Phys: VENKATA MARES Pat Loc: CWM/SO/PACT EIGHT WH (Req'g Lo Img Loc: [facility]BUILDING 1 Service: Unknown [facility] , (Case 62 COMPLETE) KNEE 1 OR 2 VIEWS (RIGHT) (RAD Detailed) CPT:71850 Proc Modifiers : BILATERAL EXAM Reason for Study: chronic pain (Case 63 COMPLETE) KNEES BILATERAL STANDING (RAD Detailed) CPT:82167 (Case 64 COMPLETE) KNEE 1 OR 2 VIEWS (LEFT) (RAD Detailed) CPT:96478 Proc Modifiers : BILATERAL EXAM Clinical History: Report Status: Verified Date Reported: APR 27, 2024 Date Verified: APR 27, 2024 Outreach Librarian E-Sig:/ES/TERESA BLOUNT JR Report: Study: AP weight-bearing [...] Primary Interpreting Staff: TERESA BLOUNT JR, Radiologist (Outreach Librarian) /EAD TERESA BLOUNT JR [facility] Encounter Notes: All associated encounter notes This section contains the clinical notes associated to the Encounter. Date/Time Encounter Note(s) Provider Source Apr 28, 2024 12:56 PM OPTOMETRY NOTE: LOCAL TITLE: OPTOMETRY NOTE STANDARD TITLE: OPTOMETRY NOTE DATE OF NOTE: APR 28, 2024@12:56 ENTRY DATE: APR 28, 2024@12:56:49 AUTHOR: TRACE SPEARS COSIGNER: MEJIA WELSH URGENCY: STATUS: COMPLETED OPTOMETRY NOTE Has ADDENDA Active problems - Computerized Problem List is the source for the followin. Pain of bilateral knee joints 2. Abdominal pain 3. CLBP - chronic low back pain 4. Cervical radiculopathy 5. HTN - Hypertension ([facility] [id number]) 6. Diabetes Mellitus Type 2 ([facility] [id number]) 7. Allergic Rhinitis ([facility] [id number]) 8. Vitamin D Deficiency ([facility] [id number]) 9. Hyperlipidemia ([facility] [id number]) 10. Fatty liver 11. Fatigue 12. Edema of lower leg 13. Back pain 14. History of cholecystectomy 15. H/O: osteoarthritis 16. Depression 17. Onychomycosis of toenails 18. Knee pain (SNOMED CT [id number]) 19. Osteoarthritis 20. Foot pain 21. Diabetic neuropathy 22. Erectile dysfunction 23. Type 2 diabetes mellitus 24. Flat Feet * 25. Depressive disorder (SNOMED CT 68542436) 26. History of male erectile disorder (SNOMED CT 969338569) 27. Disorder of urethra 28. PCP: Gm: [phone] 29. Knee: arthralgia 30. Ankle: arthralgia 31. Appendectomy When Done for Indicated Purpose at Time of Other Major Procedur 32. Hearing loss 33. Tinnitus 34. Arthritis, Traumatic, Primary Active Outpatient Medications (including Supplies): Active Outpatient [...] TABLET BY MOUTH ONCE ACTIVE DAILY 7) GLUCOSE SENSOR DEXCOM G7 USE 1 SENSOR DIRECTED ACTIVE EVERY 10 DAYS 8) INSULIN,ASPART(EQV-NOVLG)100UN/ ML FLXPEN INJECT 25 ACTIVE UNITS SUBCUTANEOUSLY THREE TIMES A DAY INJECT 15 MINUTES BEFORE MEALS IF MEAL SKIPPED SKIP THE DOSE 9) INSULIN,GLARGINE-YFGN 100UNIT/ML PEN 3ML INJECT 46 ACTIVE UNITS SUBCUTANEOUSLY TWICE DAILY 10) LIDOCAINE 5% PATCH APPLY 1 PATCH TOPICALLY ONCE DAILY ACTIVE NEEDED (LEAVE PATCH ON FOR 12 HOURS, THEN REMOVE PATCH) 11) LISINOPRIL 5MG TAB TAKE ONE TABLET BY MOUTH ONCE ACTIVE DAILY TO CONTROL BLOOD PRESSURE 12) METFORMIN HCL 750MG 24HR SA TAB TAKE ONE TABLET BY ACTIVE MOUTH ONCE DAILY 13) SEMAGLUTIDE 0.25MG/0.375ML INJ PEN 3ML INJECT 0.5MG ACTIVE SUBCUTANEOUSLY ONCE A WEEK FOR TYPE 2 DIABETES MELLITUS Allergies: Patient has answered NKA All medications including those prescribed by outside VA's, community providers, and all OTC meds were reviewed and reconciled with patient to the best of their abilities. This 58 year old MALE is seen today for diabetic ANTONIETTAE - PASQUALE with DFE 04/2023 -Duration x20 yrs -Last A1c 7.4% -Pt reports compliance with medication Chief Complaint: -Pt reports blurry vision OD at distance and near with glasses. No trouble OS. -Pt was being by followed by [facility], says he was last seen a few months ago for Eylea injections but does not have another appt scheduled that he knows of. He states that they never called him for f/u appt. Last appt note we have on file is from 08/2023. He would like to see them again because he felt it was helping his vision. -Pt presents with mild redness OD noticed by physician/internist. Upon questioning, he states that it has been happening for years coming and going in the same eye in the same spot. The redness will go down and then it will come back. This time it started a few months ago and slowly got more red. Pt does not feel bothered by it. No pain in the eye, no pain with eye movements. OHx: -CRVO OD with macular edema -Type 2 DM with moderate NPDR OD, mild NPDR OS without macular edema OU -Cataracts OU -RE OU (-) Pain: (-) SPENCER: (-) Diplopia: (-) Flashes: (-) Floaters: (-) Amaurosis Fugax/Tia's: (-) Eye Injury: (-) Eye Surgery: (-) TBI (+) Injections: Eylea OD for CRVO FOHx: (-) Glaucoma/ARMD/Blindness (-) Smoker/Length of Time/PPD: VITALS (most recent, as listed in the electronic record): B/P: 125/79 (04/19/2024 15:04) Pulse: 90 (04/19/2024 15:04) Temperature: 97.6 F [36.4 C] (12/29/2023 10:05) Weight: 273 lb [123.83 kg] (04/19/2024 15:04) Height: 77 in [195.6 cm] (12/29/2023 10:05) BMI: BMI: 32.4 PERTINENT LABS: HEMOGLOBIN A1C TREND Collection DT Spec HGBA1c 03/08/2024 09:42 BLOOD 7.4 H 11/27/2023 10:26 BLOOD 8.2 H 05/07/2023 14:35 BLOOD 7.2 H 09/23/2022 09:57 BLOOD 8.0 H 03/14/2022 11:36 BLOOD 7.3 H Current Rx with last BCVA: OD:-2.00 -2.50 x 180 20/30 OS:-2.25 -2.25 x 005 20/20 ADD:+2.50 20/20 OU DVA ( )sc ( x )cc OD: 20/50-2 PH 20/40 OS: 20/20-2 Pupils: PERRL (-)APD EOMs: SAFE OU, (-)Pain/Diplopia CVF (facial, peripheral): FTFC OU Subjective Refraction: OD:-2.00 -2.50 x 180 20/50-2 OS:-2.25 -2.25 x 005 20/20-2 ADD:+2.50 All the above performed by student, reviewed by attending Anterior segment: Performed by student, repeated by attending Lids: mild MGD OU Conj: 2+ injection temporally OD with pinguecula that blanched with 2.5% phenylephrine, white and quiet OS Cornea: clear OU AC: deep and quiet OU, (-)cells/flare OU Angles: 1:1 N/T OU Iris: flat and clear OU, (-)NVI/TID OU Lens: 1+ NS OU Tonometry: Performed by student, reviewed by attending OD 10 mmHg OS 11 mmHg Time: 3:12pm Last IOP (04/15/23) OD: 15 OS: 16 Fundus exam: Dilated: 3:15pm Dilating Drops: 1GTT 1 % Tropicamide OU & 1GTT 2.5% Phenylephrine OU (Pt. ed. on side effects, dilation warning given and verbal consent obtained) Patient advised not to drive if they feel they have any symptoms which could affect their ability to drive safely. Patient advised not to engage in any activities which could put themselves or others at risk if they feel they have any symptoms which could affect their ability to perform those activities safely. Performed by student, repeated by attending Vit: clear OU C/D: 0.40 OD, 0.50 OS, (-)NVD OU Macula: multiple exudates inferior and superior macula OD, flat and clear OS PPole: few dot hemes scattered throughout OU, (-)NVE/CWS/REMEDIOS OU A/V: 2/3, (-)venous tortuosity OU Vessels: vessel sheathing inferior and superior to the disc OD, normal caliber OS Periph: flat and intact, (-)holes, tears, detachments 360 OU, (-)NVE OU Assessment/Plan: 1. Non-ischemic central retinal vein occlusion OD s/p Eylea injections followed by [facility], updated consult entered today - Pt ed on today's findings. Ed on importance of keeping [facility] OD. - Monitor annually. 2. Dry Eye Syndrome with OU - Pt ed on today's findings. Rx'd ATs for use 3-4x per day. Advised pt to keep ATs in the fridge for relief. - Monitor annually. 3. 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 Last A1c 7.4% - Pt ed on today's findings and the possible ocular health and visual complications associated with diabetes as well as importance of attending follow up appts - Encouraged pt to monitor blood sugar and continue taking medications as prescribed by their PCP - Pt ed to call immediately if experiencing any sudden changes in vision - Monitor annually 4. Combined Cataracts OU - not visually significant - Pt ed on today's findings and importance of UV protection. - Monitor annually. 5. Myopia and Presbyopia OU - No change in rx. Ordered 1 clear PAL, 1 sun PAL per pt request - Monitor annually Return to Clinic 1 yr or sooner prn. Patient Education: Diabetes: Patient was educated regarding diabetes and related ocular complications including retinopathy and cataract formation as well as other related systemic complications. The importance of good blood sugar control, blood sugar testing as recommended by their PCP and the importance of timely follow up were all emphasized. Medication Reconciliation: Outpatient: Has the patient been taking medications as documented in the EMLR? YES: The patient has been taking medications as documented in the EMLR. Essential Medication List for Review used to complete this medication reconciliation. INCLUDED IN THIS LIST: Alphabetical list of active outpatient prescriptions dispensed from this VA (local) and dispensed from another [place] or [facility] facility (remote) as well as [...] whether with a VA or non-VA provider. Medication List: JLV Link Data on this list may not be complete. Please check JLV. Allergies/ADRs (Tool #5) FACILITY ALLERGY/ADR -------- [place] [facility] [place] [facility] No Known Allergies [facility] NO KNOWN ALLERGIES Med. Reconciliation (Tool #1) INCLUDED IN THIS LIST: Alphabetical list of active outpatient prescriptions dispensed from this [place] (local) and dispensed from another [place] or [facility] facility (remote) as well as inpatient [...] the patient into personal health records (i.e. [facility]) are NOT included in this list. Non-VA medications documented outside this [place], remote inpatient orders (regardless of status) and remote clinic medications are NOT included in this list. The patient and provider must always discuss medications the patient is taking, regardless of where the medication was dispensed or obtained. OUTPT ACETAMINOPHEN 500MG TAB (Status = Active) TAKE TWO TABLETS BY MOUTH THREE TIMES DAILY NEEDED FOR PAIN Rx# [id number] Last Released: 03/18/24 Qty/Days Supply: 200 Rx Expiration Date: 11/28/24 Refills Remainin OUTPT ATORVASTATIN CALCIUM 80MG TAB (Status = Active) TAKE ONE TABLET BY MOUTH AT BEDTIME FOR HIGH CHOLESTEROL Rx# [id number] Last Released: 03/18/24 Qty/Days Supply: 90 Rx Expiration Date: 11/28/24 Refills Remainin Indication: FOR HIGH CHOLESTEROL OUTPT BUPRENORPHINE 5MCG/HR PATCH (Status = Active) APPLY 1 PATCH TO SKIN EVERY 5 DAYS (REMOVE PATCH BEFORE APPLYING A NEW PATCH) Rx# [id number] Last Released: 03/25/24 Qty/Days Supply: 04/04 Rx Expiration Date: 09/22/24 Refills Remainin Indication: FOR SEVERE CHRONIC PAIN OUTPT CARBOXYMETHYLCELLULOSE NA 0.5% OPH SOLN (Status = Pending) INSTILL ONE DROP INTO EACH EYE FOUR TIMES A DAY Login Date: 04/30/24 Qty/Days Supply: 45 Refills Ordered: 3 OUTPT CHOLECALCIF 50MCG (D3-2,000UNIT) TAB (Status = Active) TAKE ONE TABLET BY MOUTH ONCE DAILY FOR VITAMIN SUPPLEMENTATION Rx# [id number] Last Released: 04/19/24 Qty/Days Supply: 100 Rx Expiration Date: 12/15/24 Refills Remainin Indication: FOR VITAMIN D DEFICIENCY OUTPT DICLOFENAC NA 1% TOP GEL (Status = Active) APPLY 4 GRAMS TOPICALLY TWICE DAILY NEEDED FOR OSTEOARTHRITIS - USE DOSING CARD PROVIDED IN BOX Rx# [id number] Last Released: 05/21/23 Qty/Days Supply: 100 Rx Expiration Date: 05/21/24 Refills Remainin Indication: FOR JOINT PAIN OUTPT EMPAGLIFLOZIN 25MG TAB (Status = Active) TAKE ONE TABLET BY MOUTH ONCE DAILY Rx# [id number] Last Released: 04/21/24 Qty/Days Supply: 90 Rx Expiration Date: 10/17/24 Refills Remainin Indication: FOR TYPE 2 DIABETES MELLITUS OUTPT GABAPENTIN 100MG CAP (Status = ) TAKE ONE CAPSULE BY MOUTH EVERY MORNING AND TAKE TWO CAPSULES AT BEDTIME FOR NERVE PAIN Rx# [id number] Last Released: 12/12/23 Qty/Days Supply: Rx Expiration Date: 03/11/24 Refills Remainin Indication: FOR NERVE PAIN OUTPT GABAPENTIN 100MG CAP (Status = ) TAKE ONE CAPSULE BY MOUTH THREE TIMES A DAY FOR 7 DAYS, THEN TAKE TWO CAPSULES THREE TIMES A DAY FOR 7 DAYS, THEN TAKE THREE CAPSULES THREE TIMES A DAY FOR 16 DAYS Rx# [id number] Last Released: 03/30/24 Qty/Days Supply: Rx Expiration Date: 04/25/24 Refills Remainin Indication: PAIN OUTPT HYDROCODONE 5MG/ACETAMINOPHEN 325MG TAB (Status = ) TAKE 1 TABLET BY MOUTH TWICE DAILY NEEDED FOR PAIN MAY USE UP TO 3 DAYS PER WEEK (NEXT FILL 03/09/24) Rx# [id number] Last Released: 02/10/24 Qty/Days Supply: Rx Expiration Date: 03/11/24 Refills Remainin Indication: FOR PAIN OUTPT HYDROCODONE 5MG/ACETAMINOPHEN 325MG TAB (Status = ) TAKE 1 TABLET BY MOUTH TWICE DAILY FOR PAIN (NEXT FILL 04/19/24) Rx# [id number] Last Released: 03/22/24 Qty/Days Supply: Rx Expiration Date: 04/21/24 Refills Remainin Indication: FOR PAIN OUTPT INSULIN,ASPART(EQV-NOVLG)100UN/ ML FLXPEN (Status = Active) INJECT 25 UNITS SUBCUTANEOUSLY THREE TIMES A DAY INJECT 15 MINUTES BEFORE MEALS IF MEAL SKIPPED SKIP THE DOSE Rx# [id number] Last Released: 04/06/24 Qty/Days Supply: 08/04 Rx Expiration Date: 02/26/25 Refills Remainin Indication: FOR DIABETES OUTPT INSULIN,GLARGINE-YFGN 100UNIT/ML PEN 3ML (Status = ) INJECT 40 UNITS SUBCUTANEOUSLY TWICE DAILY FOR DIABETES Rx# [id number] Last Released: 12/05/23 Qty/Days Supply: Rx Expiration Date: 02/14/24 Refills Remainin Indication: FOR DIABETES OUTPT INSULIN,GLARGINE-YFGN 100UNIT/ML PEN 3ML (Status = Active) INJECT 46 UNITS SUBCUTANEOUSLY TWICE DAILY Rx# [id number] Last Released: 02/26/24 Qty/Days Supply: 08/04 Rx Expiration Date: 02/26/25 Refills Remainin Indication: FOR DIABETES OUTPT LIDOCAINE 5% PATCH (Status = Active) APPLY 1 PATCH TOPICALLY ONCE DAILY NEEDED (LEAVE PATCH ON FOR 12 HOURS, THEN REMOVE PATCH) Rx# [id number] Last Released: 11/28/23 Qty/Days Supply: Rx Expiration Date: 11/28/24 Refills Remainin Indication: BACK PAIN OUTPT LISINOPRIL 5MG TAB (Status = Active) TAKE ONE TABLET BY MOUTH ONCE DAILY TO CONTROL BLOOD PRESSURE Rx# [id number] Last Released: 01/29/24 Qty/Days Supply: Rx Expiration Date: 05/21/24 Refills Remainin OUTPT METFORMIN HCL 750MG 24HR SA TAB (Status = ) TAKE ONE TABLET BY MOUTH ONCE DAILY Rx# [id number] Last Released: 01/29/24 Qty/Days Supply: Rx Expiration Date: 02/14/24 Refills Remainin Indication: FOR TYPE 2 DIABETES MELLITUS OUTPT METFORMIN HCL 750MG 24HR SA TAB (Status = Active) TAKE ONE TABLET BY MOUTH ONCE DAILY Rx# [id number] Last Released: 02/26/24 Qty/Days Supply: Rx Expiration Date: 02/26/25 Refills Remainin Indication: FOR TYPE 2 DIABETES MELLITUS OUTPT SEMAGLUTIDE 0.25MG/0.375ML INJ PEN 3ML (Status = Active) INJECT 0.5MG SUBCUTANEOUSLY ONCE A WEEK FOR TYPE 2 DIABETES MELLITUS Rx# [id number] Last Released: 04/14/24 Qty/Days Supply: 11/02 Rx Expiration Date: 04/15/25 Refills Remainin Indication: FOR TYPE 2 DIABETES MELLITUS OUTPT SEMAGLUTIDE 1MG/0.75ML INJ PEN 3ML (Status = Discontinued) INJECT 1MG SUBCUTANEOUSLY ONCE A WEEK FOR TYPE 2 DIABETES MELLITUS Rx# [id number] Last Released: 02/26/24 Qty/Days Supply: 11/02 Rx Expiration Date: 11/27/24 Refills Remainin Indication: FOR TYPE 2 DIABETES MELLITUS SUPPLIES OUTPT GLUCOSE SENSOR DEXCOM G7 (Status = Active) USE 1 SENSOR DIRECTED EVERY 10 DAYS Rx# [id number] Last Released: 03/22/24 Qty/Days Supply: Rx Expiration Date: 12/11/24 Refills Remainin PHARMACY TERMS AND POSSIBLE PATIENT ACTIONS INPT = [place] inpatient order IV = [place] intravenous medication OUTPT = [place] outpatient prescription PHARMACY POSSIBLE PATIENT TERMS EXPLANATION ACTIONS -------- - ACTIVE A prescription that can be If you have refills, filled at the local [place] pharmacy. you may request a refill of this prescription from your [place] pharmacy. CLINIC A medication you received during If you have questions a visit to a [place] clinic or about this medication emergency department. contact your [place] healthcare team. DISCONTINUED A prescription your provider has Contact your VA stopped. It is no longer healthcare team if you available to be sent to you or need more of this picked up at the [place] pharmacy medication. window. A prescription which is too old Contact your VA to fill. This does not refer to healthcare team if you the expiration date of the need more of this medication in the container. medication. NON-VA A medication that came from If this medication someplace other than a VA information is pharmacy. This may be a incorrect or out of prescription from either the VA date, please tell your or non VA providers that was VA healthcare team. filled outside the VA. Or, it may be an ejao-fdo-xrnhkrx (OTC), herbal, dietary supplements or sample medication. ON HOLD An active prescription that will Contact your VA not be filled until pharmacy pharmacy when you need resolves the issue. more of this medication. PARKED An active prescription that will Contact your VA not be filled until the patient pharmacy when you need requests it. this medication. PENDING This prescription order has been If you have been sent to the pharmacy for review instructed to start and is not ready yet. this medication now, contact your VA pharmacy. SUSPENDED An active prescription that is Contact your VA not scheduled to be filled yet. pharmacy if you need You should receive it before this medication now. you run out. ==== (x) Printed Medication Reconciliation List Offered and Declined by () Medication Reconciliation List Printed for at Exam () Optometry HT Please Print and Mail Copy of Medication Reconciliation List () AMSA Please Print and Mail Copy of Medication Reconciliation List /lora/ TRACE SPEARS OPTOMETRY STUDENT Signed: 04/30/2024 12:04 /lora/ MEJIA WELSH OD INVESTOR RELATIONS MANAGER Cosigned: 04/30/2024 12:32 04/30/2024 ADDENDUM STATUS: COMPLETED The optometry physician/internist participated in this exam, I saw this [place] in conjunction with the optometry student. The entrance tests and refraction were performed by the student and reviewed by me. I personally met with the patient, confirmed the hisory, complaints and the student's findings, and performed slit lamp and fundus evaluation as indicated. I reviewed and agree with the stated findings, assessment and plan. I have added/edited the documentation to reflect my exam findings and changes to the assessment and plan. Ed re today's findings. repeated back the plan and education. All reminders completed by attending and documented in student note. /lora/ MEJIA WELSH OD INVESTOR RELATIONS MANAGER Signed: 04/30/2024 12:32 [facility] SPEARS [facility]
--- OUTSIDE RECORDS SUMMARY | 2024-09-30 08:42 | XMS_ITS | Encounter Summary ---
Author Name [facility] [facility] [place] [facility] [place] Address [address] [place] [address] Care Team Providers Care Operations Management Professionals Name Role Phone CHANI RHODES Primary Care [...] [facility] H[facility] February 03, 2022 [id number] EMERITA BAUTISTA PATIENT [facility] MEDICAID MEDICAID MEDIC AID Oct 06, 2013 MEDICAI D [id number] EMERITA BAUTISTA PATIENT MEDICARE (WNR) MEDICARE (M) PART A Mar 06, 2015 PART A [id number] [phone] EMERITA BAUTISTA PATIENT MEDICARE (WNR) MEDICARE (M) PART B Mar 06, 2015 PART B [id number] EMERITA BAUTISTA PATIENT MEDICARE (WNR) MEDICARE (M) PART B Mar 06, 2015 PART B [id number] [phone] EMERITA BAUTISTA PATIENT MEDICARE (WNR) MEDICARE (M) PART A Mar 06, 2015 PART A [id number] EMERITA BAUTISTA PATIENT MEDICARE (WNR) MEDICARE (M) PART B Mar 06, 2015 PART B [id number] [phone] EMERITA BAUTISTA PATIENT MEDICARE (WNR) MEDICARE (M) PART B Mar 06, 2015 PART B [id number] EMERITA BAUTISTA PATIENT MEDICARE (WNR) MEDICARE (M) PART A Mar 06, 2015 PART A [id number] [phone] EMERITA BAUTISTA PATIENT Selected Encounter This section includes the information on record at [place] for the Encounter. Date/Time Encounter Type Encounter Description Reason Pro vider Source May 20, 2024 08:38 AM Outpatient Encounter PAIN CLINIC IHE Encounter Template Text not used by [place] Plan of Treatment: Future Appointments (+ 6 months) and Future Tests (+/- 45 days) The Plan of Treatment section includes future care activities for the patient from all [place] [facility] This section includes future appointments and future orders which are active, pending or scheduled. Future Appointments This section includes appointments that were scheduled to occur 6 months from the date of the Encounter, up to a maximum of 20 appointments. The data comes from all [place] treatment facilities. Appointment Date/Time Appointment Type Appointme nt Facility Name May 21, 2024 09:45 AM AMBULATORY - MEDICINE [facility] [place] [facility] Jun 10, 2024 09:30 AM [facility] Jun 23, 2024 08:00 AM AMBULATORY - REHAB MEDICIN [facility] Jun 28, 2024 07:30 AM AMBULATORY - REHAB MEDICIN [facility] Jul 01, 2024 02:45 PM AMBULATORY - MEDICINE [facility] [place] [facility] Jul 06, 2024 08:00 AM [facility] Jul 13, 2024 10:00 [facility], [facility]24 10:00 AM [facility] - [facility] Aug 05, 2024 09:30 AM [facility] Aug 19, 2024 09:00 AM [facility] Aug 24, 2024 11:00 AM AM[facility]ULATORY [facility]IAT[facility] [place] [facility] Aug 24, 2024 03:00 PM AM[facility]ULATORY - [facility] Aug 27, 2024 10:00 AM AM[facility]ULATORY - MEDICINE [facility] [place] [facility] Sep 16, 2024 08:30 AM AM[facility]ULATORY - MEDICINE [facility] Sep 23, 2024 03:30 PM AM[facility]ULATORY - MEDICINE [facility] [place] [facility] Sep 24, 2024 12:00 PM AM[facility]ULATORY - MEDICINE [facility] [place] [facility] Sep 30, 2024 08:55 AM AMBULATORY - MEDICINE [facility] [place] [facility] Oct 15, 2024 08:00 AM AMBULATORY - MEDICINE [facility] Oct 27, 2024 09:30 AM AMBULATORY - MEDICINE [place] [facility] [place] [facility] Nov 04, 2024 03:00 PM AMBULATORY - MEDICINE [place] [facility] [place] [facility] Social History: Smoking Status (Most current) and Tobacco Use (All prior to encounter date) This section includes the most current, and the historical, smoking and tobacco- related health factors from the [place] facility where the Encounter took place. Current Smoking Status This section includes the most current smoking, or tobacco-related health factor, from the [place] facility where the Encounter took place. Date/Time Current Smoking Status Comment Facil ity Mar 11, 2023 08:30 AM [facility] Tobacco Use History This section includes a history of the smoking, or tobacco-related health factors, that were collected on or before the date of the Encounter. The data comes from the [place] facility where the Encounter took place. Date/Time Smoking Status/Tobacco Use Comment F acility Mar 11, 2023 08:30 AM VA-TOBACCO QUIT 15 YRS OR MORE [facility] [place] [place] [facility] Dec 27, 2020 02:00 PM VA-TOBACCO FORMER USER [facility] [place] [place] [facility] Dec 27, 2020 02:00 PM VA-TOBACCO QUIT 15 YRS OR MORE [place] [facility] [place] [facility] Advance Directives: All historical and current Section Date Range: From patient's date of to the date document was created. This section includes ALL of a patient's completed or amended VA Advance and Rescinded Directives. The entries below indicate that a directive exists for the patient, but an actual copy is not included with this document. The data comes from all [place] facilities. Date Advance Directives Provider Source May 23, 2011 ADVANCE DIRECTIVE BROOKSJUDBARRY [facility] Radiology Reports: +/- 30 days of [...] the Encounter. The data comes from all [place] treatment facilities. Date/Time Radiology Report Provider Source Apr 27, 2024 08:46 AM KNEE 3 VIEWS (RIGH T): EMERITA BAUTISTA [id number] -1965 M Ex Date: APR 27, 2024@08:46 Req Phys: VENKATA MARES Pat Loc: CWM/SO/PACT EIGHT WH (Req'g Lo Img Loc: [facility] 1 Service: Unknown [place] [facility] , (Case 62 COMPLETE) KNEE 1 OR 2 VIEWS (RIGHT) (RAD Detailed) CPT:01920 Proc Modifiers : BILATERAL EXAM Reason for Study: chronic pain (Case 63 COMPLETE) KNEES BILATERAL STANDING (RAD Detailed) CPT:70764 (Case 64 COMPLETE) KNEE 1 OR 2 VIEWS (LEFT) (RAD Detailed) CPT:79756 Proc Modifiers : BILATERAL EXAM Clinical History: Report Status: Verified Date Reported: APR 27, 2024 Date Verified: APR 27, 2024 Avionics Shop Supervisor E-Sig:/ES/TERESA BLOUNT JR Report: Study: AP weight-bearing [...] Primary Interpreting Staff: TERESA BLOUNT JR, Radiologist (Avionics Shop Supervisor) /TERESA AGUILAR JR [facility] Encounter Notes: All associated encounter notes This section contains the clinical notes associated to the Encounter. Date/Time Encounter Note(s) Provider Source May 20, 2024 08:38 AM TELEPHONE ENCOUNTE R NOTE: LOCAL TITLE: TELEPHONE NOTE/SPECIALTY CLINIC STANDARD TITLE: TELEPHONE ENCOUNTER NOTE DATE OF NOTE: MAY 20, 2024@08:38 ENTRY DATE: MAY 20, 2024@08:38:05 AUTHOR: TRACE CHAPARRO COSIGNER: URGENCY: STATUS: COMPLETED Called and spoke with pt to reminded them that they have a FTF appt with the Pain clinic on 05/21/2024 at 0945. Location was confirmed. /lora/ TRACE CHAPARRO ADVANCED HEAT TREAT WORKER Signed: 05/20/2024 08:38 TRACE CHAPARRO [facility]
--- OUTSIDE RECORDS SUMMARY | 2024-09-30 08:42 | XMS_ITS ---
Author Name [facility] [place] Address [address] [place] [address] Care Team Providers Care Deposition Reporter Name Role Phone CHANI RHODES Primary Care [...] [facility] February 03, 2022 [id number] EMERITA BAUTISTA PATIENT [facility] MEDICAID MEDICAID MEDIC AID Oct 06, 2013 MEDICAI D [id number] EMERITA BAUTISTA PATIENT MEDICARE (WNR) MEDICARE (M) PART A Mar 06, 2015 PART A [id number] [phone] EMERITA BAUTISTA PATIENT MEDICARE (WNR) MEDICARE (M) PART B Mar 06, 2015 PART B [id number] EMERITA BAUTISTA PATIENT MEDICARE (WNR) MEDICARE (M) PART B Mar 06, 2015 PART B [id number] EMERITA BAUTISTA PATIENT MEDICARE (WNR) MEDICARE (M) PART A Mar 06, 2015 PART A [id number] EMERITA BAUTISTA PATIENT MEDICARE (WNR) MEDICARE (M) PART B Mar 06, 2015 PART B [id number] EMERITA BAUTISTA PATIENT MEDICARE (WNR) MEDICARE (M) PART B Mar 06, 2015 PART B [id number] EMERITA BAUTISTA PATIENT MEDICARE (WNR) MEDICARE (M) PART A Mar 06, 2015 PART A [id number] [phone] EMERITA BAUTISTA PATIENT Selected Encounter This section includes the information on record at [place] for the Encounter. Date/Time Encounter Type Encounter Description Reason Pro vider Source May 13, 2024 11:56 AM Outpatient Encounter PRIMARY CARE/MEDICINE IHE Encounter Template Text not used by [place] Plan of Treatment: Future Appointments (+ 6 months) and Future Tests (+/- 45 days) The Plan of Treatment section includes [facility] care [facility] the [facility] [place] [facility] This section includes future appointments [...] 21, 2024 09:45 AM [facility] Jun 10, 2024 09:30 AM [facility]ULATORY - MEDICINE [facility] [place] [facility] Jun 23, 2024 08:00 AM AMBULATORY - REHAB MEDICIN [facility] Jun 28, 2024 07:30 AM AMBULATORY - REHAB MEDICIN [facility] Jul 01, 2024 02:45 PM AMBULATORY - MEDICINE [place] [facility] Jul 06, 2024 08:00 AM [facility]ATORY - [facility] Jul 13, 2024 10:00 [facility] Jul 28, 2024 10:00 AM [facility]ULATORY - REHAB [facility] Aug 05, 2024 09:30 AM [facility] Aug 19, 2024 09:00 AM AMBULATORY - MEDICINE [facility] Aug 24, 2024 11:00 AM AMBULATORY - PSYCHIATRY [facility] [place] [facility] Aug 24, 2024 03:00 PM AMBULATORY - REHAB [facility]ICIN [facility] [place] Aug 27, 2024 10:00 AM AMBULATORY - MEDICINE [facility] [place] [place] [facility] Sep 16, 2024 08:30 AM AMBULATORY - MEDICINE [facility] Sep 23, 2024 03:30 PM AMBULATORY - MEDICINE [facility] [place] [place] [facility] Sep 24, 2024 12:00 PM AMBULATORY - MEDICINE [facility] [place] [place] [facility] Sep 30, 2024 08:55 AM AMBULATORY - MEDICINE [facility] [place] [place] [facility] Oct 15, 2024 08:00 AM AMBULATORY - MEDICINE [facility] Oct 27, 2024 09:30 AM AMBULATORY - MEDICINE [place] [facility] [place] [place] [facility] Nov 04, 2024 03:00 PM AMBULATORY - MEDICINE [place] [facility] [place] [facility] Social History: Smoking Status (Most current) and Tobacco Use (All prior to encounter date) This section includes the most current, and the historical, smoking and tobacco- related health factors from the [place] facility where the Encounter took place. Current Smoking Status This section includes the most current smoking, or tobacco-related health factor, from the [place] facility where the Encounter took place. Date/Time Current Smoking Status Comment Facil ity Mar 11, 2023 08:30 AM [facility] Tobacco Use History This section includes a history of the smoking, or tobacco-related health factors, that were collected on or before the date of the Encounter. The data comes from the [place] facility where the Encounter took place. Date/Time Smoking Status/Tobacco Use Comment F acility Mar 11, 2023 08:30 AM VA-TOBACCO QUIT 15 YRS OR MORE [facility] [place] [facility] Dec 27, 2020 02:00 PM VA-TOBACCO FORMER USER [facility] [place] [facility] Dec 27, 2020 02:00 PM VA-TOBACCO QUIT 15 YRS OR MORE [place] [facility] [place] [facility] Advance Directives: All historical and current [...] KNEE 3 VIEWS (RIGH T): EMERITA BAUTISTA [id number] -1965 M Ex Date: APR 27, 2024@08:46 Req Phys: VENKATA MARES Pat Loc: CWM/SO/PACT EIGHT WH (Req'g Lo Img Loc: [facility] Service: Unknown [place] [facility] , (Case 62 COMPLETE) KNEE 1 OR 2 VIEWS (RIGHT) (RAD Detailed) CPT:65593 Proc Modifiers : BILATERAL EXAM Reason for Study: chronic pain (Case 63 COMPLETE) KNEES BILATERAL STANDING (RAD Detailed) CPT:30930 (Case 64 COMPLETE) KNEE 1 OR 2 VIEWS (LEFT) (RAD Detailed) CPT:27311 Proc Modifiers : BILATERAL EXAM Clinical History: Report Status: Verified Date Reported: APR 27, 2024 Date Verified: APR 27, 2024 Design Engineering Specialist E-Sig:/ES/TERESA BLOUNT JR Report: Study: AP weight-bearing [...] Primary Interpreting Staff: TERESA BLOUNT JR, Radiologist (Design Engineering Specialist) /TERESA AGUILAR JR [facility] Encounter Notes: All associated encounter notes This section contains the clinical notes associated to the Encounter. Date/Time Encounter Note(s) Provider Source May 17, 2024 12:46 PM ADDENDUM: LOCAL TITLE: Addendum STANDARD TITLE: ADDENDUM DATE OF NOTE: MAY 17, 2024@12:46:40 ENTRY DATE: MAY 17, 2024@12:46:42 AUTHOR: BHARGAV WELCHIGNER: URGENCY: STATUS: COMPLETED forwarding request for physical therapy services to PCP for review. /lora/ NIMCO SYKES RN- REGISTERED NURSE Signed: 05/17/2024 12:47 Receipt Acknowledged By: 05/20/2024 18:36 /lora/ VENKATA MARES MD PRIMARY CARE PHYSICIAN ==== --- Original Document --- 05/13/24 WALK-IN NOTE PRIMARY CARE (T): <====Click to Start Advanced Medical Support presents to the Primary Care clinic with the following request: [ ]Medication Renewal/Refill [ ]Consultation with Team RN [ ]Symptoms [ X ]Other referral to PT The states they are: [ ]Waiting [ X ]Not Waiting No Walk in visit scheduled with PACT Nurse [ X ] At this encounter the Stamps's demographics were verified. [ X ] At this encounter the Stamps's Insurance information was verified. [ X ] At this encounter the below scheduled visits for the were discussed and appointment reminder card was offered. Future appointments: 05/21/2024 09:45 CWM/NO/PAIN MD CLINIC 06/10/2024 09:30 CWM/SO/PHARM/PACT 2 07/01/2024 14:45 COM CARE-RETINAL SPEC 09/13/2024 11:00 CWM/SO/PACT EIGHT 05/03/2025 10:00 NHM/OPTOMETRY/WELSH/ Stamps was requesting a Physical Therapy. Please contact for more information. /lora/ GIGI VARMA Signed: 05/13/2024 11:58 Receipt Acknowledged By: 05/17/2024 12:46 /es/ NIMCO SYKES RN-BC REGISTERED NURSE 05/13/2024 14:15 /lora/ MANDO COOLEY LPN Licensed Practical Nurse BHARGAV WELCH May 13, 2024 11:56 AM PRIMARY CARE NOTE: LOCAL TITLE: WALK-IN NOTE PRIMARY CARE (T) STANDARD TITLE: PRIMARY CARE NOTE DATE OF NOTE: MAY 13, 2024@11:56 ENTRY DATE: MAY 13, 2024@11:56:59 AUTHOR: GIGI MARQUEZ EXP COSIGNER: URGENCY: STATUS: COMPLETED WALK-IN NOTE PRIMARY CARE (T) Has ADDENDA <====Click to Start Advanced Medical Support presents to the Primary Care clinic with the following request: [ ]Medication Renewal/Refill [ ]Consultation with Team RN [ ]Symptoms [ X ]Other referral to PT The states they are: [ ]Waiting [ X ]Not Waiting No Walk in visit scheduled with PACT Nurse [ X ] At this encounter the Stamps's demographics were verified. [ X ] At this encounter the 's Insurance information was verified. [ X ] At this encounter the below scheduled visits for the were discussed and appointment reminder card was offered. Future appointments: 05/21/2024 09:45 CWM/NO/PAIN MD CLINIC 06/10/2024 09:30 CWM/SO/PHARM/PACT 2 07/01/2024 14:45 COM CARE-RETINAL SPEC 09/13/2024 11:00 CWM/SO/PACT EIGHT WH 05/03/2025 10:00 NHM/OPTOMETRY/WELSH/ was requesting a Physical Therapy. Please contact for more information. /lora/ GIGI VARMA Signed: 05/13/2024 11:58 Receipt Acknowledged By: 05/17/2024 12:46 /lora/ NIMCO SYKES RN-BC REGISTERED NURSE 05/13/2024 14:15 /lora/ MANDO COOLEY LPN Licensed Practical Nurse 05/17/2024 ADDENDUM STATUS: COMPLETED forwarding request for physical therapy services to PCP for review. /lora/ NIMCO SYKES RN-BC REGISTERED NURSE Signed: 05/17/2024 12:47 Receipt Acknowledged By: * AWAITING SIGNATURE * VENKATA MARES [place]
--- OUTSIDE RECORDS SUMMARY | 2024-09-30 08:42 | XMS_ITS ---
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 Address [address] [place] [address] Care Team Providers Care Skill Labor Name Role Phone CHANI RHODES Primary Care [...] to Policy Zayas [employer]IG[employer] DENTAL DENTAL INSURANCE [employer] [facility] February 03, 2022 [id number] EMERITA BAUTISTA PATIENT [facility] MEDICAID MEDICAID MEDIC AID Oct 06, 2013 MEDICAI D [id number] EMERITA BAUTISTA PATIENT MEDICARE (WNR) MEDICARE (M) PART A Mar 06, 2015 PART A [id number] EMERITA BAUTISTA PATIENT MEDICARE (WNR) MEDICARE (M) PART B Mar 06, 2015 PART B [id number] EMERITA BAUTISTA PATIENT MEDICARE (WNR) MEDICARE (M) PART B Mar 06, 2015 PART B [id number] EMERITA BAUTISTA PATIENT MEDICARE (WNR) MEDICARE (M) PART A Mar 06, 2015 PART A [id number] [phone] EMERITA BAUTISTA PATIENT MEDICARE (WNR) MEDICARE (M) PART B Mar 06, 2015 PART B [id number] [phone] EMERITA BAUTISTA PATIENT MEDICARE (WNR) MEDICARE (M) PART B Mar 06, 2015 PART B [id number] [phone] EMERITA BAUTISTA PATIENT MEDICARE (WNR) MEDICARE (M) PART A Mar 06, 2015 PART A [id number] EMERITA BAUTISTA PATIENT Selected Encounter This section includes the information on record at [place] for the Encounter. Date/Time Encounter Type Encounter Description Reason Provider Source May 21, 2024 09:45 AM OFFICE O/P EST MOD 30 MIN PAIN CLINIC ICD-10-CM M25.561 Pain in right knee KUPFERSCHMID,SE TH B IHE Encounter Template Text not used by [place] Assessments - Encounter Diagnoses This section includes the primary and secondary diagnoses documented for the Encounter. Date/Time Primary/Secondary Diagnosis Diagnosis Name Provider Source May 24, 2024 02:41 PM PRIMARY Pain in right knee KUPFERSCHMID, SABA B [place] [facility] [facility] May 24, 2024 02:41 PM SECONDARY Essential (primary) hypertension KUPFERSCHMID, SABA B [place] [facility] [facility] May 24, 2024 02:41 PM SECONDARY Low back pain, unspecified KUPFERSCHMID, SABA B [place] [facility] [facility] May 24, 2024 02:41 PM SECONDARY Major depressive disorder, recurrent, moderate KUPFERSCHMID, SABA B [place] [facility] [facility] May 24, 2024 02:41 PM SECONDARY Pain in left knee KUPFERSCHMID, SABA B [place] [facility] [facility] [place] [facility] Plan of Treatment: Future Appointments (+ [...] The data comes from all [place] treatment [facility]. Appointment Date/Time Appointment Type Appointme nt Facility Name Jun 10, 2024 09:30 AM AMBULATORY - MEDICINE [place] [facility] [place] [facility] Jun 23, 2024 08:00 AM AMBULATORY - RE[facility]AB [facility] Jun 28, 2024 07:30 AM [facility] Jul 01, 2024 02:45 PM AMBULATORY - MEDICINE [place] [facility] [place] [facility] Jul 06, 2024 08:00 AM [facility] Jul 13, 2024 10:00 AM [facility] Jul 28, 2024 10:00 AM [facility] Aug 05, 2024 09:30 AM AMBULATORY - MEDICINE [place] [facility] [facility] Aug 19, 2024 09:00 AM AMBULATORY - MEDICINE [facility] Aug 24, 2024 11:00 AM AMBULATORY - PSYCHIATRY [facility] [place] [facility] Aug 24, 2024 03:00 PM AMBULATORY - REHAB [facility] Aug 27, 2024 10:00 AM AMBULATORY - MEDICINE [place] [facility] [place] [facility] Sep 16, 2024 08:30 AM AMBULATORY - MEDICINE [facility] Sep 23, 2024 03:30 PM AMBULATORY - MEDICINE [place] [facility] [place] [facility] Sep 24, 2024 12:00 PM AMBULATORY - MEDICINE [place] [facility] [place] [facility] Sep 30, 2024 08:55 AM AMBULATORY - MEDICINE [place] [facility] [place] [facility] Oct 15, 2024 08:00 AM AMBULATORY - MEDICINE [facility] Oct 27, 2024 09:30 AM AMBULATORY - MEDICINE [place] [facility] [place] [facility] Nov 04, 2024 03:00 PM AMBULATORY - MEDICINE [place] [place] [facility] Nov 18, 2024 09:30 AM AMBULATORY - NONE [facility] Social History: Smoking Status (Most [...] 11, 2023 08:30 AM VA-TOBACCO FORMER USER [facility] Tobacco Use History This section includes a history of the smoking, or tobacco-related health factors, that were collected on or before the date of the Encounter. The data comes from the [place] facility where the Encounter took place. Date/Time Smoking Status/Tobacco Use Comment F acility Mar 11, 2023 08:30 AM [place]-TOBACCO QUIT 15 YRS OR MORE [facility] Dec 27, 2020 02:00 PM VA-TOBACCO FORMER USER [facility] Dec 27, 2020 02:00 PM [place]-TO[place]ACCO QUIT 15 YRS OR MORE [facility] Advance Directives: All historical and current [...] KNEE 3 VIEWS (SAAD T): EMERITA BAUTISTA [id number] -1965 M Exm Date: APR 27, 2024@08:46 Req Phys: VENKATA MARES Pat Loc: CWM/SO/PACT EIGHT WH (Req'g Lo Img Loc: [facility] Service: Unknown [facility] , (Case 62 COMPLETE) KNEE 1 OR 2 VIEWS (RIGHT) (RAD Detailed) CPT:64977 Proc Modifiers : BILATERAL EXAM Reason for Study: chronic pain (Case 63 COMPLETE) KNEES BILATERAL STANDING (RAD Detailed) CPT:47639 (Case 64 COMPLETE) KNEE 1 OR 2 VIEWS (LEFT) (RAD Detailed) CPT:59720 Proc Modifiers : BILATERAL EXAM Clinical History: Report Status: Verified Date Reported: APR 27, 2024 Date Verified: APR 27, 2024 [place] E-Sig:/ES/TERESA BLOUNT JR Report: Study: AP weight-bearing [...] Primary Interpreting Staff: TERESA BLOUNT JR, Radiologist ([place]) /EATERESA PEREZ JR [facility] Encounter Notes: All associated encounter notes This section contains the clinical notes associated to the Encounter. Date/Time Encounter Note(s) Provider Source May 21, 2024 10:43 AM ACCOUNTING OF DISCLOSURES NOTE: LOCAL TITLE: STATE PRESCRIPTION DRUG MONITORING PROGRAM STANDARD TITLE: ACCOUNTING OF DISCLOSURES NOTE DATE OF NOTE: MAY 21, 2024@10:43:25 ENTRY DATE: MAY 21, 2024@10:43:25 AUTHOR: SABA MORA COSIGNER: URGENCY: STATUS: COMPLETED This PDMP query was submitted by Saba Mora MD. The clinical justification for this PDMP query is to review controlled substances prescribed outside of the [place], and any additional information that may become available, as an important component of standard clinical care, and in accordance with [facility] policy. Patient information was shared with the PDMP AppE-Line [place]. No prescription(s) for controlled substances outside the [place] were found in the last 90 days. /lora/ SABA MORA MD PHYSICIAN Signed: 05/21/2024 10:43 SABA MORA [place] [facility] [facility] May 21, 2024 09:41 AM PAIN MEDICINE OUTPATIENT NOTE: LOCAL TITLE: PAIN CLINIC NOTE STANDARD TITLE: PAIN MEDICINE OUTPATIENT NOTE DATE OF NOTE: MAY 21, 2024@09:41 ENTRY DATE: MAY 21, 2024@09:41:07 AUTHOR: SABA MORA EXP COSIGNER: URGENCY: STATUS: COMPLETED CURRENT ======= Ortho appointments in June. Did not try patches due to questions this time. -Showed where he can place the patch Still has Vicodin (3 left) from 60 given on March 22. Not using every night. 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 FAMILY HISTORY SUBSTANCE USE HISTORY Tobacco: None ETOH: None; stopped 20 years ago. Marijuana: None. Illicit drugs: Past, including pills. = ASSESSMENT and PLAN = 58 year old [employer] , 70% service-connected for musculoskeletal injuries, with DDD and DJD affecting his low back and right knee; he has mid-back and neck pain also. 05/21/2024 Try Butrans as below after answering questions. Supportive listening and motivational interviewing during appointment. 04/06/2024 Has not started Butrans due to [...] His mood is depressed because of pain. and I formulated the plan through shared medical-decision making. repeated the plan back to me and had no further questions at end of appointment. APPOINTMENT LENGTH: minutes FOLLOW-UP: weeks 05/21/2024 09:45 CWM/NO/PAIN MD CLINIC 06/10/2024 09:30 CWM/SO/PHARM/PACT 2 07/01/2024 14:45 COM CARE-RETINAL SPEC 09/13/2024 11:00 CWM/SO/PACT EIGHT 05/03/2025 10:00 NHM/OPTOMETRY/WELSH/ MEDICATION and RECONCILIATION Active Outpatient Medications (including Supplies): Active Outpatient Medications Status 1) ACETAMINOPHEN 500MG TAB TAKE TWO TABLETS BY MOUTH ACTIVE THREE TIMES DAILY NEEDED FOR PAIN 2) ATORVASTATIN CALCIUM 80MG TAB TAKE ONE TABLET BY ACTIVE MOUTH AT BEDTIME FOR HIGH CHOLESTEROL 3) BUPRENORPHINE 5MCG/HR PATCH APPLY 1 PATCH TO SKIN ACTIVE EVERY 5 DAYS (REMOVE PATCH BEFORE APPLYING A NEW PATCH) 4) CARBOXYMETHYLCELLULOSE NA 0.5% OPH SOLN INSTILL 1 ACTIVE DROP INTO EACH EYE FOUR TIMES A DAY FOR DRY EYE 5) CHOLECALCIF 50MCG (D3-2,000UNIT) TAB TAKE ONE TABLET ACTIVE BY MOUTH ONCE DAILY FOR VITAMIN SUPPLEMENTATION 6) DICLOFENAC NA 1% TOP GEL APPLY 4 GRAMS TOPICALLY ACTIVE TWICE DAILY NEEDED FOR OSTEOARTHRITIS - USE DOSING CARD PROVIDED IN BOX 7) EMPAGLIFLOZIN 25MG TAB TAKE ONE TABLET BY MOUTH ONCE ACTIVE DAILY 8) GLUCOSE SENSOR DEXCOM G7 USE 1 SENSOR DIRECTED ACTIVE EVERY 10 DAYS 9) INSULIN,ASPART(EQV-NOVLG)100UN/ ML FLXPEN INJECT 25 ACTIVE UNITS SUBCUTANEOUSLY THREE TIMES A DAY INJECT 15 MINUTES BEFORE MEALS IF MEAL SKIPPED SKIP THE DOSE 10) INSULIN,GLARGINE-YFGN 100UNIT/ML PEN 3ML INJECT 46 ACTIVE UNITS SUBCUTANEOUSLY TWICE DAILY 11) LIDOCAINE 5% PATCH APPLY 1 PATCH TOPICALLY ONCE DAILY ACTIVE NEEDED (LEAVE PATCH ON FOR 12 HOURS, THEN REMOVE PATCH) 12) LISINOPRIL 5MG TAB TAKE ONE TABLET BY MOUTH ONCE ACTIVE DAILY TO CONTROL BLOOD PRESSURE 13) METFORMIN HCL 750MG 24HR SA TAB TAKE ONE TABLET BY ACTIVE MOUTH ONCE DAILY 14) SEMAGLUTIDE 0.25MG/0.375ML INJ PEN 3ML INJECT 0.5MG ACTIVE SUBCUTANEOUSLY ONCE A WEEK FOR TYPE 2 DIABETES MELLITUS ACTIVE PROBLEMS Active problems - Computerized Problem List is the source for the followin. Pain of bilateral knee joints 2. Abdominal pain 3. CLBP - chronic low back pain 4. Cervical radiculopathy 5. HTN - Hypertension ([facility] [id number]) 6. Diabetes Mellitus Type 2 ([facility] [id number]) 7. Allergic Rhinitis ([facility] [id number]) 8. Vitamin D Deficiency ([facility] [id number]) 9. Hyperlipidemia ([facility] [id number]) 10. Fatty liver 11. Fatigue 12. Edema of lower leg 13. Back pain 14. History of cholecystectomy 15. H/O: osteoarthritis 16. Depression 17. Onychomycosis of toenails 18. Knee pain (SNOMED CT 5054388899) 19. Osteoarthritis 20. Foot pain 21. Diabetic neuropathy 22. Erectile dysfunction 23. Type 2 diabetes mellitus 24. Flat Feet * 25. Depressive disorder (SNOMED CT 08214461) 26. History of male erectile disorder (SNOMED CT 349982376) 27. Disorder of urethra 28. PCP: Gm: [phone] 29. Knee: arthralgia 30. Ankle: arthralgia 31. Appendectomy When Done for Indicated Purpose at Time of Other Major Procedur 32. Hearing loss 33. Tinnitus 34. Arthritis, Traumatic, Primary Appointment length includes time with [place], completing clinical reminders, reviewing relevant information in EMR, review of PDMP, ordering appropriate tests, prescribing medications, coordinating care, and completing the medical record. /lora/ SABA MORA MD PHYSICIAN Signed: 05/24/2024 14:41 SABA MORA [place] [facility]
--- OUTSIDE RECORDS SUMMARY | 2024-09-30 08:42 | XMS_ITS | Encounter Summary ---
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 Organization [place] Address [address] [place] [id number] Care Team Providers Care Telecom Billing Analyst Name Role Phone CHANI RHODES Primary [facility] Insurance Providers: All historical [...] to Policy Zayas CIGNA DENTAL DENTAL INSURANCE [facility] February 03, 2022 [id number] EMERITA BAUTISTA PATIENT [facility] MEDICAID MEDICAID MEDIC AID Oct 06, 2013 MEDICAI D [id number] EMERITA BAUTISTA PATIENT MEDICARE (WNR) MEDICARE (M) PART A Mar 06, 2015 PART A [id number] EMERITA BAUTISTA PATIENT MEDICARE (WNR) MEDICARE (M) PART B Mar 06, 2015 PART B [id number] EMERITA BAUTISTA PATIENT MEDICARE (WNR) MEDICARE (M) PART B Mar 06, 2015 PART B [id number] EMERITA BAUTISTA PATIENT MEDICARE (WNR) MEDICARE (M) PART A Mar 06, 2015 PART A [id number] [phone] EMERITA BAUITSTA PATIENT MEDICARE (WNR) MEDICARE (M) PART B Mar 06, 2015 PART B [id number] [phone] EMERITA BAUTISTA PATIENT MEDICARE (WNR) MEDICARE (M) PART B Mar 06, 2015 PART B [id number] [phone] EMERITA BAUTISTA PATIENT MEDICARE (WNR) MEDICARE (M) PART A Mar 06, 2015 PART A [id number] EMERITA BAUTISTA PATIENT Selected Encounter This section includes the information on record at [place] for the Encounter. Date/Time Encounter Type Encounter Description Reason Pro vider Source IHE Encounter Template Text not used by [place] Advance Directives: All historical and current Section Date Range: From patient's date of to the date document was created. This section includes ALL of a patient's completed or amended [place] Advance and Rescinded Directives. The entries below indicate that a directive exists for the patient, but an actual copy is not included with this document. The data comes from all [place] facilities. Date Advance Directives Provider Source May 23, 2011 ADVANCE DIRECTIVE JUD BROOKS
--- OUTSIDE RECORDS SUMMARY | 2024-09-30 08:42 | XMS_ITS | Encounter Summary ---
Author Name [facility] [place] Address [address] [place] [address] Care Team Providers Care Pipeline Maintenance Supervisor Name Role Phone CHANI RHODES Primary Care [...] [facility] February 03, 2022 [id number] EMERITA BAUTISTA PATIENT [facility] MEDICAID MEDICAID MEDIC AID Oct 06, 2013 MEDICAI D [id number] EMERITA BAUTISTA PATIENT MEDICARE (WNR) MEDICARE (M) PART A Mar 06, 2015 PART A [id number] EMERITA BATUISTA PATIENT MEDICARE (WNR) MEDICARE (M) PART B Mar 06, 2015 PART B [id number] EMERITA BAUTISTA PATIENT MEDICARE (WNR) MEDICARE (M) PART B Mar 06, 2015 PART B [id number] EMERITA BAUTISTA PATIENT MEDICARE (WNR) MEDICARE (M) PART A Mar 06, 2015 PART A [id number] EMERITA BAUTISTA PATIENT MEDICARE (WNR) MEDICARE (M) PART B Mar 06, 2015 PART B [id number] EMERITA BAUTISTA PATIENT MEDICARE (WNR) MEDICARE (M) PART B Mar 06, 2015 PART B [id number] [phone] EMERITA BAUTISTA PATIENT MEDICARE (WNR) MEDICARE (M) PART A Mar 06, 2015 PART A [id number] EMERITA BAUTISTA PATIENT Selected Encounter This section includes the information on record at [place] for the Encounter. Date/Time Encounter Type Encounter Description Reason Pro vider Source Apr 23, 2024 08:03 AM Outpatient Encounter PRIMARY CARE/MEDICINE IHE Encounter Template Text not used by [place] Plan of Treatment: Future Appointments (+ 6 months) and Future Tests (+/- 45 days) The Plan of Treatment section includes future care activities for the patient from [facility] [place] [facility] This section includes future appointments and future orders which are active, pending or scheduled. Future Appointments This section includes appointments that were scheduled to occur 6 months from the date of the Encounter, up to a maximum of 20 appointments. The data comes from all [place] treatment facilities. Appointment Date/Time Appointment Type Appointme nt Facility Name Apr 28, 2024 03:00 PM AMBULATORY - MEDICINE [facility] [place] [facility] May 21, 2024 09:45 AM AMBULATORY - MEDICINE [facility] [place] [facility] Jun 10, 2024 09:30 AM AMBULATORY - MEDICINE [facility] [place] [facility] Jun 23, 2024 08:00 [facility], [facility]24 07[facility]30 [facility] Jul 01, 2024 02:45 PM AMBULATORY - MEDICINE [facility] [place] [facility] Jul 06, 2024 08:00 AM AMBULATORY - MEDICINE [facility] Jul 13, 2024 10:00 AM AMBULATORY - REHAB [facility] Jul 28, 2024 10:00 [facility] Aug 05, 2024 09:30 AM AMBULATORY - MEDICINE [place] [facility] Aug 19, 2024 09:00 AM AMBULATORY - MEDICINE [facility] Aug 24, 2024 11:00 AM AMBULATORY - PSYCHIATRY [facility] [place] [facility] Aug 24, 2024 03:00 PM AMBULATORY - REHAB [facility] Aug 27, 2024 10:00 AM AMBULATORY - MEDICINE [place] [facility] [facility] Sep 16, 2024 08:30 AM AMBULATORY - MEDICINE [facility] Sep 23, 2024 03:30 PM AMBULATORY - MEDICINE [place] [facility] [facility] Sep 24, 2024 12:00 PM AMBULATORY - MEDICINE [place] [facility] [place] [facility] Sep 30, 2024 08:55 AM AMBULATORY - MEDICINE [place] [facility] [place] [facility] Oct 15, 2024 08:00 AM [facility] Social History: Smoking Status (Most current) and Tobacco Use (All prior to encounter date) This section includes the most current, and the historical, smoking and tobacco- related health factors from the [place] facility where the Encounter took place. Current Smoking Status This section includes the most current smoking, or tobacco-related health factor, from the [place] facility where the Encounter took place. Date/Time Current Smoking Status Comment Facil ity Mar 11, 2023 08:30 AM [facility] Tobacco Use History This section includes a history of the smoking, or tobacco-related health factors, that were collected on or before the date of the Encounter. The data comes from the [place] facility where the Encounter took place. Date/Time Smoking Status/Tobacco Use Comment F acility Mar 11, 2023 08:30 AM VA-TOBACCO QUIT 15 YRS OR MORE [place] [facility] [place] [facility] Dec 27, 2020 02:00 PM VA-TOBACCO FORMER USER [place] [facility] [place] [facility] Dec 27, 2020 02:00 PM VA-TOBACCO QUIT 15 YRS OR MORE [facility] Advance Directives: All historical and current Section Date Range: From patient's date of to the date document was created. This section includes ALL of a patient's completed or amended [place] Advance and Rescinded Directives. The entries below indicate that a directive exists for the patient, but an actual copy is not included with this document. The data comes from all [place] facilities. Date Advance Directives Provider Source May [...] the Encounter. The data comes from all [place] treatment facilities. Date/Time Radiology Report Provider Source Apr 27, 2024 08:46 AM KNEE 3 VIEWS (RIGH T): EMERITA BAUTISTA [id number] -[id number] M Exm Date: APR 27, 2024@08:46 Req Phys: VENKATA MARES Pat Loc: CWM/SO/PACT EIGHT WH (Req'g Lo Img Loc: [facility] Service: Unknown [place] [facility] , (Case 62 COMPLETE) KNEE 1 OR 2 VIEWS (RIGHT) (RAD Detailed) CPT:56810 Proc Modifiers : BILATERAL EXAM Reason for Study: chronic pain (Case 63 COMPLETE) KNEES BILATERAL STANDING (RAD Detailed) CPT:56576 (Case 64 COMPLETE) KNEE 1 OR 2 VIEWS (LEFT) (RAD Detailed) CPT:24661 Proc Modifiers : BILATERAL EXAM Clinical History: Report Status: Verified Date Reported: APR 27, 2024 Date Verified: APR 27, 2024 Facing Cutting Machine Operator E-Sig:/ES/TERESA BLOUNT JR Report: Study: AP weight-bearing [...] Primary Interpreting Staff: TERESA BLOUNT JR, Radiologist (Facing Cutting Machine Operator) /TERESA AGUILAR JR [facility] Encounter Notes: All associated encounter notes This section contains the clinical notes associated to the Encounter. Date/Time Encounter Note(s) Provider Source Apr 23, 2024 08:03 AM ADMINISTRATIVE NOT E: LOCAL TITLE: ADMINISTRATIVE NOTE STANDARD TITLE: ADMINISTRATIVE NOTE DATE OF NOTE: APR 23, 2024@08:03 ENTRY DATE: APR 23, 2024@08:03:46 AUTHOR: BHARGAV WELCH COSIGNER: URGENCY: STATUS: COMPLETED Faxed completed [facility] Department of Family and Medical Leave Certification of Serious Health Condition form to [phone]. Called [facility] and advised him that completed form has been faxed to number indicated on the form instruction sheet and advised that copy of completed form noted above is available for pickup at [facility] at [facility]'s convenience to keep for his records. /lora/ NIMCO SYKES RN-BC REGISTERED NURSE Signed: 04/23/2024 08:06 BHARGAV WELCH
--- OUTSIDE RECORDS SUMMARY | 2024-09-30 08:42 | XMS_ITS | Encounter Summary ---
Author Name [place] Address [address] [place] [address] Care Team Providers Care Line Repairer Name Role Phone CHANI RHODES Primary Care [...] [facility] February 03, 2022 [id number] [phone] EMERITA BAUTISTA PATIENT [facility] MEDICAID MEDICAID MEDIC AID Oct 06, 2013 MEDICAI D [id number] EMERITA BAUTISTA PATIENT MEDICARE (WNR) MEDICARE (M) PART A Mar 06, 2015 PART A [id number] EMERITA BAUTISTA PATIENT MEDICARE (WNR) MEDICARE (M) PART B Mar 06, 2015 PART B [id number] EMERITA BAUTISTA PATIENT MEDICARE (WNR) MEDICARE (M) PART B Mar 06, 2015 PART B [id number] EMERITA BAUTISTA PATIENT MEDICARE (WNR) MEDICARE (M) PART A Mar 06, 2015 PART A [id number] [phone] EMERITA BAUTISTA PATIENT MEDICARE (WNR) MEDICARE (M) PART B Mar 06, 2015 PART B [id number] EMERITA BAUTISTA PATIENT MEDICARE (WNR) MEDICARE (M) PART A Mar 06, 2015 PART A [id number] EMERITA BAUTISTA PATIENT MEDICARE (WNR) MEDICARE (M) PART B Mar 06, 2015 PART B [id number] EMERITA BAUTISTA PATIENT Selected Encounter This section includes the information on record at [place] for the Encounter. Date/Time Encounter Type Encounter Description Reason Provider Source Apr 28, 2024 04:22 PM FIT SPECTACLES MULTIFOCAL OPTOMETRY ICD-10-CM Z46.0 Encounter for fit/adjst of spectacles and contact lenses MEJIA WELSH Behzad Encounter Template Text not used by [place] Assessments - Encounter Diagnoses This section includes the primary and secondary diagnoses documented for the Encounter. Date/Time Primary/Secondary Diagnosis Diagnosis Name Provider Source Apr 28, 2024 04:22 PM PRIMARY Encounter for fit/adjst of spectacles and contact lenses PAIGE WILCOX [place] [facility] Plan of Treatment: Future Appointments (+ 6 months) and Future Tests (+/- 45 days) The Plan of Treatment section includes future care activities for the patient from all [place] treatmentfacilities. This section includes future appointments and [...] 21, 2024 09:45 AM AMBULATORY - MEDICINE [facility] [place] [facility] Jun 10, 2024 09:30 AM AMBULATORY - MEDICINE [facility] [facility] Jun 23, 2024 08:00 AM [facility] Jun 28, 2024 07:30 AM AMBULATORY - RE[facility]AB [facility] Jul 01, 2024 02:45 PM AMBULATORY - MEDICINE [place] [facility] Jul 06, 2024 08:00 AM AMBULATORY - MEDICINE [facility] Jul 13, 2024 10:00 AM AMBULATORY - REHAB MED[facility]IN [facility] Jul 28, 2024 10:00 AM AMBULATORY - REHAB MED[facility]IN [facility] Aug 05, 2024 09:30 AM AMBULATORY - MEDICINE [place] C [place] [facility] Aug 19, 2024 09:00 AM AMBULATORY - MEDICINE [facility] Aug 24, 2024 11:00 AM AMBULATORY - PSYCHIATRY [place] [facility] Aug 24, 2024 03:00 PM AMBULATORY - REHAB MED[facility]IN [facility] Aug 27, 2024 10:00 AM AMBULATORY - MEDICINE [place] C [place] [facility] Sep 16, 2024 08:30 AM AMBULATORY - MEDICINE [facility] Sep 23, 2024 03:30 PM AMBULATORY - MEDICINE [place] C [place] [facility] Sep 24, 2024 12:00 PM AMBULATORY - MEDICINE [place] C [place] [facility] Sep 30, 2024 08:55 AM AMBULATORY - MEDICINE [place] C [place] [facility] Oct 15, 2024 08:00 AM AMBULATORY - MEDICINE [facility] Oct 27, 2024 09:30 AM AMBULATORY - MEDICINE [facility] [place] [facility] Social History: Smoking Status (Most current) [...] 11, 2023 08:30 AM VA-TOBACCO FORMER USER [facility] [place] [facility] Tobacco Use History This section includes a history of the smoking, or tobacco-related health factors, that were collected on or before the date of the Encounter. The data comes from the [place] facility where the Encounter took place. Date/Time Smoking Status/Tobacco Use Comment F acility Mar 11, 2023 08:30 AM VA-TOBACCO QUIT 15 YRS OR MORE [place] [facility]TR [place] [facility] Dec 27, 2020 02:00 PM VA-TOBACCO FORMER USER [place]TR [place] [facility] Dec 27, 2020 02:00 PM VA-TOBACCO QUIT 15 YRS OR MORE [place] CNTR [place] [facility] Advance Directives: All historical and [...] 27, 2024 08:46 AM KNEE 3 VIEWS ([facility] T): EMERITA BAUTISTA [id number] -1965 M Ex Date: APR 27, 2024@08:46 Req Phys: VENKATA MARES Pat Loc: CWM/SO/PACT EIGHT WH (Req'g Lo Img Loc: [facility] 1 Service: Unknown [place] CNTR [place] [facility] , (Case 62 COMPLETE) KNEE 1 OR 2 VIEWS (RIGHT) (RAD Detailed) CPT:48468 Proc Modifiers : BILATERAL EXAM Reason for Study: chronic pain (Case 63 COMPLETE) KNEES BILATERAL STANDING (RAD Detailed) CPT:38707 (Case 64 COMPLETE) KNEE 1 OR 2 VIEWS (LEFT) (RAD Detailed) CPT:86482 Proc Modifiers : BILATERAL EXAM Clinical History: Report Status: Verified Date Reported: APR 27, 2024 Date Verified: APR 27, 2024 Pension Consultant E-Sig:/ES/TERESA BLOUNT JR Report: Study: AP weight-bearing [...] Primary Interpreting Staff: TERESA BLOUNT JR, Radiologist (Pension Consultant) /EATERESA PEREZ JR [facility] Encounter Notes: All associated encounter notes This section contains the clinical notes associated to the Encounter. Date/Time Encounter Note(s) Provider Source Apr 28, 2024 04:22 PM OPTOMETRY NOTE: LOCAL TITLE: OPTOMETRY NOTE STANDARD TITLE: OPTOMETRY NOTE DATE OF NOTE: APR 28, 2024@16:22 ENTRY DATE: APR 28, 2024@16:22:13 AUTHOR: SHAHBAZ BETH COSIGNER: URGENCY: STATUS: COMPLETED OPTOMETRY NOTE Has ADDENDA The quote provided below is for informational purposes only. Please verify prior to the creation of a purchase order. EMERITA BAUTISTA 3204 RX INFORMATION OD -2.25 -2.50 X180 Add:+2.25 Pzm:0.00 Dir: Prz2:0.00 Dir2: OS -2.25 -2.25 X5 Add:+2.25 Pzm:0.00 Dir: Prz2:0.00 Dir2: FITTING INFORMATION FPD: NPD: [place]:R:32.5 L:35.5 SEG HT:R:23 L:23 Tint:None Shade:None VA Billable Items FRAME: SLICK RED 60-17-150 Right Lens: POLY VA PROGRESSIVE 1.586 POLY Left Lens: POLY VA PROGRESSIVE 1.586 POLY KLEAR ANTI-REFLECTIVE COATING The quote provided below is for informational purposes only. Please verify prior to the creation of a purchase order. EMERITA BAUTISTA 3204 RX INFORMATION OD -2.25 -2.50 X180 Add:+2.25 Pzm:0.00 Dir: Prz2:0.00 Dir2: OS -2.25 -2.25 X5 Add:+2.25 Pzm:0.00 Dir: Prz2:0.00 Dir2: FITTING INFORMATION FPD: NPD:-3 [place]:R:32.5 L:35.5 SEG HT:R:23 L:23 Tint:[place] Shade:3 VA Billable Items FRAME: SLICK WHITE 60-17-150 Right Lens: POLY VA PROGRESSIVE 1.586 POLY Left Lens: POLY VA PROGRESSIVE 1.586 POLY SOLID TINT /lora/ SHAHBAZ BETH THEATRICAL VARIETY AGENT Signed: 04/28/2024 16:22 Receipt Acknowledged By: 04/29/2024 07:49 /lora/ Paige Wilcox LPN Licensed Practical Nurse 04/29/2024 ADDENDUM STATUS: COMPLETED PDS pattern marking supervisor fit 2 PAL eyeglasses on 04/28/2024. OPT HT entered consult(s) as requested for provider signature. /lora/ Paige Wilcox LPN Licensed Practical Nurse Signed: 04/29/2024 07:53 SHAHBAZ BETH CNTRL [facility]
--- OUTSIDE RECORDS SUMMARY | 2024-09-30 08:42 | XMS_ITS ---
Author Name [place] Address [address] [place] [address] Care Team Providers Care Gas Turbine Mechanic Name Role Phone CHANI RHODES Primary Care [...] [facility] February 03, 2022 [id number] [phone] EMERITA BAUTISTA PATIENT [facility] MEDICAID MEDICAID MEDIC AID Oct 06, 2013 MEDICAI D [id number] EMERITA BAUTISTA PATIENT MEDICARE (WNR) MEDICARE (M) PART A Mar 06, 2015 PART A [id number] [phone] EMERITA BAUTISTA PATIENT MEDICARE (WNR) MEDICARE (M) PART B Mar 06, 2015 PART B [id number] EMERITA BAUTISTA PATIENT MEDICARE (WNR) MEDICARE (M) PART B Mar 06, 2015 PART B [id number] EMERITA BAUTISTA PATIENT MEDICARE (WNR) MEDICARE (M) PART A Mar 06, 2015 PART A [id number] EMERITA BAUTISTA PATIENT MEDICARE (WNR) MEDICARE (M) PART B Mar 06, 2015 PART B [id number] EMERITA BAUTISTA PATIENT MEDICARE (WNR) MEDICARE (M) PART B Mar 06, 2015 PART B [id number] [phone] EMERITA BAUTISTA PATIENT MEDICARE (WNR) MEDICARE (M) PART A Mar 06, 2015 PART A [id number] EMERITA BAUTISTA PATIENT Selected Encounter This section includes the information on record at [place] for the Encounter. Date/Time Encounter Type Encounter Description Reason Pro vider Source Apr 29, 2024 02:35 PM Outpatient Encounter PRIMARY CARE/MEDICINE IHE Encounter Template Text not used by [place] Plan of Treatment: Future Appointments (+ 6 months) and Future Tests (+/- 45 days) The Plan of Treatment section includes future care activities for the [facility] [place] [facility] This section includes future appointments and [...] 21, 2024 09:45 AM AMBULATORY - [facility]INE [facility] Jun 10, 2024 09:30 AM AMBULATORY - MEDICINE [facility] [place] [facility] Jun 23, 2024 08:00 AM AMBULATORY - REHAB MEDICIN [facility] Jun 28, 2024 07:30 AM AMBULATORY - REHAB MEDICIN [facility] Jul 01, 2024 02:45 PM AMBULATORY - MEDICINE [place] [facility] Jul 06, 2024 08:00 AM AMBULATORY - MEDICINE [facility] Jul 13, 2024 10:00 AM [facility] Jul 28, 2024 10:00 AM AMBULATORY - REHAB MEDICIN [facility] Aug 05, 2024 09:30 AM AMBULATORY - [facility]INE [facility] Aug 19, 2024 09:00 AM AMBULATORY - MEDICINE SPR[facility] Aug 24, 2024 11:00 AM AMBULATORY - PSYCHIATRY [place] [facility] Aug 24, 2024 03:00 PM AMBULATORY - REHAB MEDICIN [facility] [place] Aug 27, 2024 10:00 AM AMBULATORY - MEDICINE [place] [facility] Sep 16, 2024 08:30 AM AMBULATORY - MEDICINE [facility] Sep 23, 2024 03:30 PM AMBULATORY - MEDICINE [place] [facility] Sep 24, 2024 12:00 PM AMBULATORY - MEDICINE [place] [facility] Sep 30, 2024 08:55 AM AMBULATORY - MEDICINE [place] [facility] Oct 15, 2024 08:00 AM AMBULATORY - MEDICINE SPR[facility] Oct 27, 2024 09:30 AM AMBULATORY - MEDICINE [place] [facility] Social History: Smoking Status (Most [...] 11, 2023 08:30 AM VA-TOBACCO FORMER USER [place] CN[facility] [facility] Tobacco Use History This section includes a history of the smoking, or tobacco-related health factors, that were collected on or before the date of the Encounter. The data comes from the [place] facility where the Encounter took place. Date/Time Smoking Status/Tobacco Use Comment F acility Mar 11, 2023 08:30 AM VA-TOBACCO QUIT 15 YRS OR MORE [place] [facility] Dec 27, 2020 02:00 PM VA-TOBACCO FORMER USER [place] [facility] Dec 27, 2020 02:00 PM VA-TOBACCO QUIT 15 YRS OR MORE [place] [facility] Advance Directives: All historical and [...] KNEE 3 VIEWS ([facility] T): EMERITA BAUTISTA [id number] -[id number] M Exm Date: APR 27, 2024@08:46 Req Phys: RAISA MARES Pat Loc: CWM/SO/PACT EIGHT WH (Req'g Lo Img Loc: [facility] 1 Service: Unknown [place] [facility] [place] [facility] , (Case 62 COMPLETE) KNEE 1 OR 2 VIEWS (RIGHT) (RAD Detailed) CPT:23391 Proc Modifiers : BILATERAL EXAM Reason for Study: chronic pain (Case 63 COMPLETE) KNEES BILATERAL STANDING (RAD Detailed) CPT:02123 (Case 64 COMPLETE) KNEE 1 OR 2 VIEWS (LEFT) (RAD Detailed) CPT:94307 Proc Modifiers : BILATERAL EXAM Clinical History: Report Status: Verified Date Reported: APR 27, 2024 Date Verified: APR 27, 2024 Gas Engine Mechanic E-Sig:/ES/TERESA BLOUNT JR Report: Study: AP weight-bearing [...] Primary Interpreting Staff: TERESA BLOUNT JR, Radiologist (Gas Engine Mechanic) /EATERESA PEREZ JR [facility] Encounter Notes: All associated encounter notes This section contains the clinical notes associated to the Encounter. Date/Time Encounter Note(s) Provider Source Apr 29, 2024 02:35 PM LETTERS: LOCAL TITLE: PATIENT LETTER (T) STANDARD TITLE: LETTERS DATE OF NOTE: APR 29, 2024@14:35 ENTRY DATE: APR 29, 2024@14:35:54 AUTHOR: RAISA MARES COSIGNER: URGENCY: STATUS: COMPLETED PATIENT LETTER (T) Has ADDENDA DEPARTMENT OF [facility] Toll Free Number Primary Care Telephone Assistance can be reached at extension [phone] [facility] scheduling can be reached at extension [phone] [facility] scheduling can be reached at ext [phone], [address] Dear , I reviewed your knee x-ray results. Please see below Findings: The patient is again status post [...] knee. Impression: Knee changes, as described above. Please follow-up with your orthopedics. If you have any questions please call our office back Friday to Friday from 8 AM to 4 PM; the phone number is [phone]. Sincerely, Dr. Raisa Mares 04/29/2024 ADDENDUM STATUS: COMPLETED THIS FIRST CRUSHER MAILED LETTER TO . /lora/ CLAUDE VIZCAINO ADVANCED MEDICAL BILLER CODER Signed: 04/29/2024 14:40 Sincerely, Your Primary Care Team [facility] [address] [id number] [place] [address] [phone] [place] [facility] [address] [place] [address] [place] [address] [phone] [facility] [address] [facility],[address]st Floor [address] [place] [id number] [place] [address] RAISA MARES [place]
--- OUTSIDE RECORDS SUMMARY | 2024-09-30 08:43 | XMS_ITS | Encounter Summary ---
Author Name [place] Address [address] [place] [address] Care Team Providers Care Underwear Cutter Name Role Phone CHANI RHODES Primary [...] [facility] February 03, 2022 [id number] [phone] EMERITA BAUTISTA PATIENT [facility] MEDICAID MEDICAID MEDIC AID Oct 06, 2013 MEDICAI D [id number] EMERITA BAUTISTA PATIENT MEDICARE (WNR) MEDICARE (M) PART A Mar 06, 2015 PART A [id number] EMERITA BAUTISTA PATIENT MEDICARE (WNR) MEDICARE (M) PART B Mar 06, 2015 PART B [id number] [phone] EMERITA BAUTISTA PATIENT MEDICARE (WNR) MEDICARE (M) PART B Mar 06, 2015 PART B [id number] EMERITA BAUTISTA PATIENT MEDICARE (WNR) MEDICARE (M) PART A Mar 06, 2015 PART A [id number] EMERITA BAUTISTA PATIENT MEDICARE (WNR) MEDICARE (M) PART B Mar 06, 2015 PART B [id number] EMERITA BAUTISTA PATIENT MEDICARE (WNR) MEDICARE (M) PART A Mar 06, 2015 PART A [id number] EMERITA BAUTISTA PATIENT MEDICARE (WNR) MEDICARE (M) PART B Mar 06, 2015 PART B [id number] [phone] EMERITA BAUTISTA PATIENT Selected Encounter This section includes the information on record at [place] for the Encounter. Date/Time Encounter Type Encounter Description Reason Pro vider Source Jul 06, 2024 08:08 AM Outpatient Encounter PRIMARY CARE/MEDICINE IHE Encounter Template Text not used by [place] Plan of Treatment: Future Appointments (+ 6 months) and Future Tests (+/- 45 days) The Plan of Treatment section includes future care activities for the patient [facility] [place] [facility]. This section includes future appointments and future orders which are active, pending or scheduled. Future Appointments This section includes appointments that were scheduled to occur 6 months from the date of the Encounter, up to a maximum of 20 appointments. The data comes from all [place] treatment facilities. Appointment Date/Time Appointment Type Appointme nt Facility Name Jul 13, 2024 10:00 [facility], [facility] 10[facility] Aug 05, 2024 09:30 AM AMBULATORY - MEDICINE [place] [facility] Aug 19, 2024 09:00 AM AMBULATORY - MEDICINE SPR[facility] Aug 24, 2024 11:00 AM AMBULATORY - PSYCHIATRY [place] [facility] Aug 24, 2024 03:00 PM AMBULATORY - REHAB MEDICIN [facility] Aug 27, 2024 10:00 AM AMBULATORY - MEDICINE [place] [facility] Sep 16, 2024 08:30 AM AMBULATORY - MEDICINE [facility] Sep 23, 2024 03:30 PM AMBULATORY - MEDICINE [place] [facility] Sep 24, 2024 12:00 PM AMBULATORY - MEDICINE [place] [facility] Sep 30, 2024 08:55 AM AMBULATORY - MEDICINE [place] [facility] Oct 15, 2024 08:00 AM AMBULATORY - MEDICINE [place] Oct 27, 2024 09:30 AM AMBULATORY - MEDICINE [place] [facility] Nov 04, 2024 03:00 PM AMBULATORY - MEDICINE [place] [facility] Nov 18, 2024 09:30 AM AMBULATORY - NONE [place] Nov 18, 2024 09:30 AM AMBULATORY - [place]ICINE [place] [facility] Active, Pending, and Scheduled Orders This section includes a listing of several types of active, pending, and scheduled orders, including clinic medications orders, diagnostic test orders, procedure orders and consult orders; where the start date of the order is 45 days before the date of the Encounter or 45 days after the date of theEncounter. The data comes from all [place] treatment facilities. Test Date/Time Test Type Test Details Facility Name Jul 14, 2024 04:18 PM Consult Order [facility] PSYCHOTHERAPY Cons Craft Rec[employer] [place] Social History: Smoking Status (Most current) and Tobacco Use (All prior to encounter date) This section includes the most current, and the historical, smoking and tobacco- related health factors from the [place] facility where the Encounter took place. Current Smoking Status This section includes the most current smoking, or tobacco-related health factor, from the [place] facility where the Encounter took place. Date/Time Current Smoking Status Comment Facil ity Mar 11, 2023 08:30 AM [facility] Tobacco Use History This section includes a history of the smoking, or tobacco-related health factors, that were collected on or before the date of the Encounter. The data comes from the [place] facility where the Encounter took place. Date/Time Smoking Status/Tobacco Use Comment F acility Mar 11, 2023 08:30 AM VA-TOBACCO QUIT 15 YRS OR MORE [place] [facility] Dec 27, 2020 02:00 PM VA-TOBACCO FORMER USER [place] [facility] Dec 27, 2020 02:00 PM VA-TOBACCO QUIT 15 YRS OR [facility] Advance Directives: All historical and current Section Date Range: From patient's date of to the date document was created. This section includes ALL of a patient's completed or amended [place] Advance and Rescinded Directives. The entries below indicate that a directive exists for the patient, but an actual copy is not included with this document. The data comes from all [place] facilities. Date Advance Directives Provider Source May 23, 2011 ADVANCE DIRECTIVE TODDJUDBARRY Ellison Encounter Notes: All associated encounter notes This section contains the clinical notes associated to the Encounter. Date/Time Encounter Note(s) Provider Source Jul 06, 2024 08:08 AM PRIMARY CARE NOTE: LOCAL TITLE: WALK-IN NOTE PRIMARY CARE (T) STANDARD TITLE: PRIMARY CARE NOTE DATE OF NOTE: JUL 06, 2024@08:08 ENTRY DATE: JUL 06, 2024@08:09:04 AUTHOR: GRACIELA CASSIDY EXP COSIGNER: URGENCY: STATUS: COMPLETED <====Click to Start Advanced Medical Support presents to the Primary Care clinic with the following request: [ ]Medication Renewal/Refill [ ]Consultation with Team RN [ X ]Symptoms [ ]Other The states they are: [ X ]Waiting [ ]Not Waiting Yes Walk in visit scheduled with PACT Nurse [ X ] At this encounter the 's demographics were verified. [ X ] At this encounter the 's Insurance information was verified. [ X ] At this encounter the below scheduled visits for the were discussed and appointment reminder card was offered. Future appointments: 07/07/2024 09:30 CWM/SO/PHYSICAL THERAPY C 07/13/2024 10:00 CWM/SO/PHYSICAL THERAPY C 07/21/2024 09:00 CWM/SO/PHYSICAL THERAPY C 08/05/2024 09:30 CWM/SO/PHARM/PACT 2 08/27/2024 10:00 CWM/NO/PAIN MD CLINIC 09/13/2024 11:00 CWM/SO/PACT EIGHT 05/03/2025 10:00 NHM/OPTOMETRY/WELSH/ HERE w/MOUTH PAIN /es/ GRACIELA CASSIDY ADVANCE COMMUNITY COORDINATOR Signed: 07/06/2024 08:09 Receipt Acknowledged By: 07/08/2024 08:09 /es/ NUHA SYKESN RN-BC REGISTERED NURSE 07/06/2024 08:22 /es/ BIANCA COELLO, INJECTION MOULDING MACHINE OPERATOR RN GRACIELA CASSIDY
--- OUTSIDE RECORDS SUMMARY | 2024-09-30 08:43 | XMS_ITS | Encounter Summary ---
Author Name [facility] [place] Organization [facility] [place] Address [address] [place] [address] Care Team Providers Care Dean Of Men Name Role Phone CHANI RHODES Primary Care [...] [facility] February 03, 2022 [id number] EMERITA BAUTISTA PATIENT [facility] MEDICAID MEDICAID MEDIC AID Oct 06, 2013 MEDICAI D [id number] EMERITA BAUTISTA PATIENT MEDICARE (WNR) MEDICARE (M) PART A Mar 06, 2015 PART A [id number] EMERITA BAUTISTA PATIENT MEDICARE (WNR) MEDICARE (M) PART B Mar 06, 2015 PART B [id number] [phone] EMERITA BAUTISTA PATIENT MEDICARE (WNR) MEDICARE (M) PART B Mar 06, 2015 PART B [id number] EMERITA BAUTISTA PATIENT MEDICARE (WNR) MEDICARE (M) PART A Mar 06, 2015 PART A [id number] EMERITA BAUTISTA PATIENT MEDICARE (WNR) MEDICARE (M) PART B Mar 06, 2015 PART B [id number] [phone] EMERITA BAUTISTA PATIENT MEDICARE (WNR) MEDICARE (M) PART B Mar 06, 2015 PART B [id number] [phone] EMERITA BAUTISTA PATIENT MEDICARE (WNR) MEDICARE (M) PART A Mar 06, 2015 PART A [id number] [phone] EMERITA BAUTISTA PATIENT Selected Encounter This section includes the information on record at CT for the Encounter. Date/Time Encounter Type Encounter Description Reason Pro vider Source May 31, 2024 09:47 AM Outpatient Encounter PRIMARY CARE/MEDICINE IHE Encounter Template Text not used by CT Plan of Treatment: Future Appointments (+ 6 months) and Future Tests (+/- 45 days) The Plan of Treatment section includes future care activities for the patient [facility] This section includes future appointments [...] MEDICINE [facility] C [place] [place] [facility] Jun 23, 2024 08:00 [facility] Jun 28, [facility]24 07:30 AM [facility] - [facility]AB [facility] Jul 01, 2024 02:45 PM AMBULATORY - MEDICINE [facility] C [place] [place] [facility] Jul 06, 2024 08:00 AM AM[facility]ULATORY - MEDICINE [facility] Jul 13, 2024 10:00 AM [facility] Jul 28, 2024 10:00 AM [facility] Aug 05, 2024 09:30 AM AMBULATORY - MEDICINE [facility] C [place] [place] [facility] Aug 19, 2024 09:00 AM AMBULATORY - MEDICINE [facility] Aug 24, 2024 11:00 AM AMBULATORY - PSYCHIATRY [place] [facility] [place] [facility] Aug 24, 2024 03:00 PM AMBULATORY - RE[place]AB [place] Aug 27, 2024 10:00 AM AMBULATORY - MEDICINE [facility] C [facility] [place] [facility] Sep 16, 2024 08:30 AM AMBULATORY - MEDICINE [facility] Sep 23, 2024 03:30 PM AMBULATORY - MEDICINE [facility] C [facility] [place] [facility] Sep 24, 2024 12:00 PM AMBULATORY - MEDICINE CT C [facility] [place] [facility] Sep 30, 2024 08:55 AM AMBULATORY - MEDICINE CT C [facility] [place] [facility] Oct 15, 2024 08:00 AM AMBULATORY - MEDICINE [facility] Oct 27, 2024 09:30 AM AMBULATORY - MEDICINE [facility] C [facility] [place] [facility] Nov 04, 2024 03:00 PM AMBULATORY - MEDICINE [facility] C [facility] [place] [facility] Nov 18, 2024 09:30 AM AMBULATORY - NONE [facility] Active, Pending, and Scheduled Orders This section includes a listing of several types of active, pending, and scheduled orders, including clinic medications orders, diagnostic test orders, procedure orders and consult orders; where the start date of the order is 45 days before the date of the Encounter or 45 days after the date of theEncounter. The data comes from all CT treatment facilities. 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 The data comes from the CT facility where the Encounter took place. Date/Time Smoking Status/Tobacco Use Comment F [facility] Mar 11, 2023 08:30 AM VA-TOBACCO QUIT [address] [facility] [place] [facility] Dec 27, 2020 02:00 PM VA-TOBACCO FORMER USER CT [facility] [place] [facility] Dec 27, 2020 02:[address]-TOBACCO QUIT [address] [facility] Advance Directives: All historical and current [...] Encounter. Date/Time Encounter Note(s) Provider Source May 31, 2024 09:47 AM PRIMARY CARE NOTE: LOCAL TITLE: WALK-IN NOTE PRIMARY CARE (T) STANDARD TITLE: PRIMARY CARE NOTE DATE OF NOTE: MAY 31, 2024@09:47 ENTRY DATE: MAY 31, 2024@09:47:47 AUTHOR: MAURA JOHNSON EXP COSIGNER: URGENCY: STATUS: COMPLETED <====Click to Start Advanced Medical Support presents to the Primary Care clinic with the following request: [ X ]Medication Renewal/Refill [ ]Consultation with Team RN [ ]Symptoms [ ]Other The [place] states they are: [ ]Waiting [ X ]Not Waiting No Walk in visit scheduled with PACT Nurse [ X ] At this encounter the [place]'s demographics were verified. [ X ] At this encounter the 's Insurance information was verified. [ X ] At this encounter the below scheduled visits for the [place] were discussed and appointment reminder card was offered. Future appointments: 06/10/2024 09:30 CWM/SO/PHARM/PACT 2 06/23/2024 08:00 CWM/SO/PHYSICAL THERAPY C 07/01/2024 14:45 COM CARE-RETINAL SPEC 07/06/2024 15:00 CWM/NO/PAIN MD CLINIC 09/13/2024 11:00 CWM/SO/PACT EIGHT 05/03/2025 10:00 NHM/OPTOMETRY/WELSH/ requesting medication refill on the following: LISINOPRIL TAB 5MG /es/ MAURA VARMA Signed: 05/31/2024 09:48 Receipt Acknowledged By: 05/31/2024 12:03 /es/ NIMCO SYKES RN-BC REGISTERED NURSE 06/03/2024 08:19 /es/ MANDO COOLEY LPN Licensed Practical Nurse 06/03/2024 16:18 /es/ VENKATA MARES MD PRIMARY CARE PHYSICIAN MAURA JOHNSON
--- OUTSIDE RECORDS SUMMARY | 2024-09-30 08:43 | XMS_ITS | Encounter Summary ---
Author Name [facility] [place] [facility] [place] Organization [facility] [place] Address [address] [place] [address] Care Team Providers Care Guitar Maker Name Role Phone CHANI RHODES Primary Care [...] to Policy Zay[employer] [facility] February 03, 2022 [id number] EMERITA BAUTISTA PATIENT [facility] MEDICAID MEDICAID MEDIC AID Oct 06, 2013 MEDICAI D [id number] EMERITA BAUTISTA PATIENT MEDICARE (WNR) MEDICARE (M) PART A Mar 06, 2015 PART A [id number] EMERITA BAUTISTA PATIENT MEDICARE (WNR) MEDICARE (M) PART B Mar 06, 2015 PART B [id number] [phone] EMERITA BAUTISTA PATIENT MEDICARE (WNR) MEDICARE (M) PART B Mar 06, 2015 PART B [id number] EMERITA BAUTISTA PATIENT MEDICARE (WNR) MEDICARE (M) PART A Mar 06, 2015 PART A [id number] EMERITA BAUTISTA PATIENT MEDICARE (WNR) MEDICARE (M) PART B Mar 06, 2015 PART B [id number] EMERITA BAUTISTA PATIENT MEDICARE (WNR) MEDICARE (M) PART A Mar 06, 2015 PART A [id number] EMERITA BAUTISTA PATIENT MEDICARE (WNR) MEDICARE (M) PART B Mar 06, 2015 PART B [id number] EMERITA BAUITSTA PATIENT Selected Encounter This section includes the information on record at [place] for the Encounter. Date/Time Encounter Type Encounter Description Reason Provider Source Jul 15, 2024 03:00 PM PRO PHONE CALL 21-30 MIN TELEPHONE MH ICD-10-CM Z71.89 Other specified counseling [place] Encounter Template Text not used by [place] Assessments - Encounter Diagnoses This section includes the primary and secondary diagnoses documented for the Encounter. Date/Time Primary/Secondary Diagnosis Diagnosis Name Provider Source Jul 15, 2024 03:00 PM PRIMARY Other specified counseling [place] Plan of Treatment: Future Appointments (+ 6 months) and Future Tests (+/- 45 days) The Plan of Treatment section includes future care activities for the patient from all [place] treatmentfacilities. This section includes future appointments and future orders which are active, pending or scheduled. Future Appointments This section includes appointments that were scheduled to occur 6 months from the date of the Encounter, up to a maximum of 20 appointments. The data comes from all [place] treatment facilities. Appointment Date/Time Appointment Type Appointme nt Facility Name Jul 28, 2024 10:00 AM AMBULATORY - REHAB [facility] Aug 05, 2024 09:30 AM AMBULATORY - MEDICINE [place] [facility] Aug 19, 2024 09:00 AM AMBULATORY - MEDICINE [facility] Aug 24, 2024 11:00 AM AMBULATORY - PSYCHIATRY [place] [place] [facility] Aug 24, 2024 03:00 PM AMBULATORY - REHAB MEDICIN [facility] Aug 27, 2024 10:00 AM AMBULATORY - MEDICINE [place] [facility] Sep 16, 2024 08:30 AM AMBULATORY - MEDICINE [place] Sep 23, 2024 03:30 PM AMBULATORY - MEDICINE [place] [facility] Sep 24, 2024 12:00 PM AMBULATORY - MEDICINE [place] [facility] [place] [facility] Sep 30, 2024 08:55 AM AMBULATORY - MEDICINE [place] [facility] [place] [facility] Oct 15, 2024 08:00 AM AMBULATORY - MEDICINE [place] Oct 27, 2024 09:30 AM AMBULATORY - MEDICINE [place] [facility] [place] [facility] Nov 04, 2024 03:00 PM AMBULATORY - MEDICINE [place] [facility] [place] [place] [facility] Nov 18, 2024 09:30 AM AMBULATORY - NONE [facility] Nov 18, 2024 09:30 AM AMBUL[place]ORY - [place]ICINE [place] [facility] Active, Pending, and Scheduled Orders This section includes a listing of several types of active, pending, and scheduled orders, including clinic medications orders, diagnostic test orders, procedure orders and consult orders; where the start date of the order is 45 days before the date of the Encounter or 45 days after the date of theEncounter. The data comes from all [place] treatment facilities. Test Date/Time Test Type Test Details Facility Name Jul 14, 2024 04:18 PM Consult Order [facility] Cons Intellectual Property [facility] Aug 25, 2024 01:01 PM Consult Order [facility] Cons Intellectual [employer] [facility] Social History: Smoking Status (Most current) and [...] 08, 2024 09:00 AM VA-TOBACCO FORMER USER [place] Tobacco Use History This section includes a history of the smoking, or tobacco-related health factors, that were collected on or before the date of the Encounter. The data comes from the [place] facility where the Encounter took place. Date/Time Smoking Status/Tobacco Use Comment F acility Mar 08, 2024 09:00 AM [place]-TOBACCO QUIT 15 YRS OR MORE [facility] Mar 27, 2022 09:30 AM VA-TOBACCO FORMER USER [place] Mar 27, 2022 09:30 AM VA-TOBACCO QUIT 15 YRS OR MORE [place] Dec 22, 2018 10:29 AM VA-TOBACCO FORMER USER [place] Dec 22, 2018 10:29 AM VA-TOBACCO QUIT 15 YRS OR MORE [place] Mar 19, 2018 11:33 AM VA-TOBACCO FORMER USER [facility] Mar 19, 2018 11:33 AM VA-TOBACCO QUIT 15 YRS OR MORE [place] May 13, 2017 01:22 PM QUIT TOBACCO USE > 7 YEARS AGO quit 24 yrs ago [place] Nov 15, 2015 09:48 AM QUIT TOBACCO USE > 7 YEARS AGO States he last smoked 21 years ago [place] Dec 07, 2009 02:51 PM QUIT TOBACCO USE > 7 YEARS AGO [place] Advance Directives: All historical and current Section [...] Encounter. 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 Pain of bilateral knee joints 2. Abdominal pain 3. CLBP - chronic low back pain 4. Cervical radiculopathy 5. HTN - Hypertension ([facility] [id number]) 6. Diabetes Mellitus Type 2 ([facility] [id number]) 7. Allergic Rhinitis ([facility] [id number]) 8. Vitamin D Deficiency ([facility] [id number]) 9. Hyperlipidemia ([facility] [id number]) 10. Fatty liver 11. Fatigue 12. Edema of lower leg 13. Back pain 14. History of cholecystectomy 15. H/O: osteoarthritis 16. Depression 17. Onychomycosis of toenails 18. Knee pain ([facility]OM[facility] CT [id number]) 19. Osteoarthritis 20. Foot pain 21. Diabetic neuropathy 22. Erectile dysfunction 23. Type 2 diabetes mellitus 24. Flat Feet * 25. Depressive disorder (SNOMED CT [id number]) 26. History of male erectile disorder (SNOMED CT [id number]) 27. Disorder of urethra 28. PCP: Gm: [phone] 29. Knee: arthralgia 30. Ankle: arthralgia 31. Appendectomy When Done for Indicated Purpose at Time of Other Major Procedur 32. Hearing loss 33. Tinnitus 34. Arthritis, Traumatic, Primary Active and Recently Outpatient Medications (excluding Supplies): Active Outpatient Medications Status === 1) ACETAMINOPHEN 500MG TAB TAKE TWO TABLETS BY MOUTH ACTIVE THREE TIMES DAILY NEEDED FOR PAIN 2) AMOXICILLIN 500/CLAV K 125MG TAB TAKE 1 TABLET BY ACTIVE MOUTH EVERY 12 HOURS WITH FOOD, FOR 10 DAYS 3) ATORVASTATIN CALCIUM 80MG TAB TAKE ONE TABLET BY ACTIVE MOUTH AT BEDTIME FOR HIGH CHOLESTEROL 4) BUPRENORPHINE 5MCG/HR PATCH APPLY 1 PATCH TO SKIN ACTIVE EVERY 5 DAYS (REMOVE PATCH BEFORE APPLYING A NEW PATCH) 5) CARBOXYMETHYLCELLULOSE NA 0.5% OPH SOLN INSTILL 1 ACTIVE DROP INTO EACH EYE FOUR TIMES A DAY FOR DRY EYE 6) CHOLECALCIF 50MCG (D3-2,000UNIT) TAB TAKE ONE TABLET ACTIVE BY MOUTH ONCE DAILY FOR VITAMIN SUPPLEMENTATION 7) EMPAGLIFLOZIN 25MG TAB TAKE ONE TABLET BY MOUTH ONCE ACTIVE DAILY 8) GLUCOSE 4GM CHEW TAB CHEW FOUR TABLETS BY MOUTH ACTIVE NEEDED FOR LOW BLOOD SUGAR 9) INSULIN,ASPART(EQV-NOVLG)100UN/ML FLXPEN INJECT 27 ACTIVE UNITS SUBCUTANEOUSLY THREE TIMES A DAY BEFORE MEALS INJECT [...] A WEEK FOR TYPE 2 DIABETES MELLITUS Inactive Outpatient Medications Status === 1) HYDROCODONE 5MG/ACETAMINOPHEN 325MG TAB TAKE 1 TABLET BY MOUTH TWICE DAILY FOR PAIN 15 Total Medications Symptom check-in: New MH consult received for , tele visit to clarify request. I have so much going on and it's really getting to me... He was let go of a good paying job 3mo ago, he is fighting the termination. He has applied for unemployment but the administration still needs to submit the right information. He is experiencing a lot more physical pain bc of his back and knees, he needs a TKR. Today he has gone to [employer] to apply for fuel assistance and other programs. He is working w Joyce at the [employer] program for his VA claims. He has had no paycheck for the past 3mo, he feels awful that his is needing to carry this burden. He is wanting to see a therapist relatively soon, he is accepting of a CC referral. Anything new to report or urgent needs we should be aware of: no Any suicidal ideation of any kind to report: no [ ] Remind about upcoming appointments: 07/21/2024 09:00 CWM/SO/PHYSICAL THERAPY C 07/28/2024 10:00 CWM/SO/PHYSICAL THERAPY C 08/05/2024 09:30 CWM/SO/PHARM/PACT 2 08/27/2024 10:00 CWM/NO/PAIN MD CLINIC 09/13/2024 11:00 CWM/SO/PACT EIGHT 05/03/2025 10:00 NHM/OPTOMETRY/WELSH/ [ x] Explain what to expect in the future MH visit. [ ] Ask what their expectations are about the appointment. The following was addressed with patient: Yes -Determined the urgency of need for care. Yes -Identified the appropriate setting for subsequent evaluation and treatment. Yes -Arranged for treatment, as appropriate. Yes -Provided with the name and contact information for a mental health professional that they can contact, even before they begin treatment if they have questions or concerns, as well instructions about accessing emergency services, as needed. Yes -Responded to the patients questions or concerns and facilitated engagement in care. /lora/ WENDY Hutton ASSISTANT EXECUTIVE HOUSEKEEPER Signed: 07/15/2024 15:51 07/15/2024 ADDENDUM STATUS: UNSIGNED You may not VIEW this UNSIGNED Addendum. LISBET W[place]
--- OUTSIDE RECORDS SUMMARY | 2024-09-30 08:43 | XMS_ITS | Encounter Summary ---
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 Role Phone CHANI RHODES Primary Care [...] [facility] February 03, 2022 [id number] EMERITA BAUTISTA PATIENT [facility] MEDICAID MEDICAID MEDIC AID Oct 06, 2013 MEDICAI D [id number] EMERITA BAUTISTA PATIENT MEDICARE (WNR) MEDICARE (M) PART A Mar 06, 2015 PART A [id number] EMERITA BAUTISTA PATIENT MEDICARE (WNR) MEDICARE (M) PART B Mar 06, 2015 PART B [id number] [phone] EMERITA BAUTISTA PATIENT MEDICARE (WNR) MEDICARE (M) PART B Mar 06, 2015 PART B [id number] [phone] EMERITA BAUTISTA PATIENT MEDICARE (WNR) MEDICARE (M) PART A Mar 06, 2015 PART A [id number] EMERITA BAUTISTA PATIENT MEDICARE (WNR) MEDICARE (M) PART B Mar 06, 2015 PART B [id number] EMERITA BAUTISTA PATIENT MEDICARE (WNR) MEDICARE (M) PART B Mar 06, 2015 PART B [id number] EMERITA BAUTISTA PATIENT MEDICARE (WNR) MEDICARE (M) PART A Mar 06, 2015 PART A [id number] [phone] EMERITA BAUTISTA PATIENT Selected Encounter This section includes the information on record at [place] for the Encounter. Date/Time Encounter Type Encounter Description Reason Pro vider Source Jul 05, 2024 02:14 PM Outpatient Encounter PRIMARY CARE/MEDICINE IHE Encounter Template Text not used by [place] Plan of Treatment: Future Appointments (+ 6 months) and Future Tests (+/- 45 days) The Plan of Treatment section includes future care activities for the patient from all [facility] This section includes future appointments and future orders which are active, pending or scheduled. Future Appointments This section includes appointments that were scheduled to occur 6 months from the date of the Encounter, up to a maximum of 20 appointments. The data comes from all [place] treatment facilities. Appointment Date/Time Appointment Type Appointme nt Facility Name Jul 06, 2024 08:00 AM AMBULATORY - MEDICINE [facility] Jul 13, 2024 10:00 [facility] Jul [facility], [facility]24 10[facility]00 [facility] Aug 05, 2024 09:30 AM AMBULATORY - MEDICINE [place] [facility] [place] [facility] Aug 19, 2024 09:00 AM AMBULATORY - MEDICINE [facility] Aug 24, 2024 11:00 AM AMBULATORY - PSYCHIATRY [place] [facility] [place] [facility] Aug 24, 2024 03:00 [facility] Aug 27, 2024 10:00 AM AMBULATORY - MEDICINE [place] [facility] [place] [facility] Sep 16, 2024 08:30 AM AMBULATORY - MEDICINE [facility] Sep 23, 2024 03:30 PM AMBULATORY - MEDICINE [place] [facility] [place] [facility] Sep 24, 2024 12:00 PM AMBULATORY - MEDICINE [place] [facility] [place] [facility] Sep 30, 2024 08:55 AM AMBULATORY - MEDICINE [place] [facility] [place] [facility] Oct 15, 2024 08:00 AM AMBULATORY - MEDICINE [facility] [place] Oct 27, 2024 09:30 AM AMBULATORY - MEDICINE [place] [facility] [place] [facility] Nov 04, 2024 03:00 PM AMBULATORY - MEDICINE [place] [facility] [place] [facility] Nov 18, 2024 09:30 AM AMBULATORY - NONE [place] Nov 18, 2024 09:30 AM AM[place]UL[place]ORY - [place]ICINE [place] [facility] Active, Pending, and Scheduled Orders This section includes a listing of several types of active, pending, and scheduled orders, including clinic medications orders, diagnostic test orders, procedure orders and consult orders; where the start date of the order is 45 days before the date of the Encounter or 45 days after the date of theEncounter. The data comes from all [place] treatment facilities. Test Date/Time Test Type Test Details Facility Name Jul 14, 2024 04:18 PM Consult Order ON LICENSE OF [facility] PSYCHOTHERAPY Cons Bench Examiner's Choice [place] Social History: Smoking Status (Most current) and Tobacco Use (All prior to encounter date) This section includes the most current, and the historical, smoking and tobacco- related health factors from the [place] facility where the Encounter took place. Current Smoking Status This section includes the most current smoking, or tobacco-related health factor, from the [place] facility where the Encounter took place. Date/Time Current Smoking Status Comment Ana ity Mar 11, 2023 08:30 AM VA-TOBACCO QUIT 15 YRS OR MORE [facility] Tobacco Use History This section includes a history of the smoking, or tobacco-related health factors, that were collected on or before the date of the Encounter. The data comes from the [place] facility where the Encounter took place. Date/Time Smoking Status/Tobacco Use Comment F acraul Mar 11, 2023 08:30 AM UT-TOBACCO QUIT 15 YRS OR MORE [facility] Dec 27, 2020 02:00 PM VA-TOBACCO FORMER USER [facility] Dec 27, 2020 02:00 PM VA-TOBACCO QUIT 15 YRS OR MORE [facility] [place] [facility] Advance Directives: All historical and current Section Date Range: From patient's date of to the date document was created. This section includes ALL of a patient's completed or amended VA Advance and Rescinded Directives. The entries below indicate that a directive exists for the patient, but an actual copy is not included with this document. The data comes from all [place] facilities. Date Advance Directives Provider Source May 23, 2011 ADVANCE DIRECTIVE JUD BROOKS Encounter Notes: All associated encounter notes This section contains the clinical notes associated to the Encounter. Date/Time Encounter Note(s) Provider Source Jul 12, 2024 08:47 AM ADDENDUM: LOCAL TITLE: Addendum STANDARD TITLE: ADDENDUM DATE OF NOTE: JUL 12, 2024@08:47:56 ENTRY DATE: JUL 12, 2024@08:47:57 AUTHOR: MANDO COOLEY COSIGNER: URGENCY: STATUS: COMPLETED CALLED AND SPOKE WITH STATED DR MARES ORDERED AND TEST WAS AT THE [facility]. WILL REQUEST RESULTS. PLEASE request sleep study results from [facility]. /lora/ MANDO COOLEY LPN Licensed Practical Nurse Signed: 07/12/2024 08:50 Receipt Acknowledged By: 07/12/2024 10:32 /es/ AIDEE VARMA for CLAUDE REEDERLAYO --- Original Document --- 07/05/24 WALK-IN NOTE PRIMARY CARE (T): <====Click to Start Advanced Medical Support [place] presents to the Primary Care clinic with the following request: [ ]Medication Renewal/Refill [ ]Consultation with Team RN [ ]Symptoms [ X ]Other The [place] states they are: [ ]Waiting [ X [...] CWM/SO/PHYSICAL THERAPY C 08/05/2024 09:30 CWM/SO/PHARM/PACT 2 09/13/2024 11:00 CWM/SO/PACT EIGHT 05/03/2025 10:00 NHM/OPTOMETRY/WELSH/ requesting a call with his results for his sleep apnea test he recently had done. Best contact: [phone] /lora/ [place] VARMA Signed: 07/05/2024 14:17 Receipt Acknowledged By: 07/08/2024 08:14 /lora/ NUHA SYKESN RN-BC REGISTERED NURSE 07/06/2024 11:27 /lora/ MANDO COOLEY LPN Licensed Practical Nurse 07/06/2024 ADDENDUM STATUS: COMPLETED Adding PCP to advise /bucky COOLEY LPN Licensed Practical Nurse Signed: 07/06/2024 11:27 Receipt Acknowledged By: 07/09/2024 16:01 /lora/ VENKATA MARES MD PRIMARY CARE PHYSICIAN 07/09/2024 ADDENDUM STATUS: COMPLETED Please find where the had sleep studies done. I did not order the sleep studies and I do not have any results Thank you /lora/ VENKATA MARES MD PRIMARY CARE PHYSICIAN Signed: 07/09/2024 16:02 Receipt Acknowledged By: 07/12/2024 08:44 /lora/ MANDO COOLEY LPN Licensed Practical Nurse 07/12/2024 ADDENDUM STATUS: COMPLETED KOJO requested sleep study from [facility] as directed /lora/ MORENITA VARMA Signed: 07/12/2024 10:24 MANDO COOLEY Jul 09, 2024 04:01 PM ADDENDUM: LOCAL TITLE: Addendum STANDARD TITLE: ADDENDUM DATE OF NOTE: JUL 09, 2024@16:01:41 ENTRY DATE: JUL 09, 2024@16:01:43 AUTHOR: VENKATA MARES COSIGNER: URGENCY: STATUS: COMPLETED Please find where the had sleep studies done. I did not order the sleep studies and I do not have any results Thank you /lora/ VENKATA MARES MD PRIMARY CARE PHYSICIAN Signed: 07/09/2024 16:02 Receipt Acknowledged By: 07/12/2024 08:44 /lora/ MANDO COOLEY LPN Licensed Practical Nurse --- Original Document --- 07/05/24 WALK-IN NOTE PRIMARY CARE (T): <====Click to Start Advanced Medical Support presents to the Primary Care clinic with the following request: [ ]Medication Renewal/Refill [ ]Consultation with Team RN [ ]Symptoms [ X ]Other The Summers states they are: [ ]Waiting [ X ]Not Waiting No Walk in visit scheduled with PACT Nurse [ X ] At this encounter the Summers's demographics were verified. [ X ] At this encounter the Summers's Insurance information was verified. [ X ] At this encounter the below scheduled visits for the [place]mers were discussed and appointment reminder card was offered. Future appointments: 07/07/2024 09:30 CWM/SO/PHYSICAL THERAPY C 07/13/2024 10:00 CWM/SO/PHYSICAL THERAPY C 07/21/2024 09:00 CWM/SO/PHYSICAL THERAPY C 08/05/2024 09:30 CWM/SO/PHARM/PACT 2 09/13/2024 11:00 CWM/SO/PACT EIGHT 05/03/2025 10:00 NHM/OPTOMETRY/WELSH/ requesting a call with his results for his sleep apnea test he recently had done. Best contact: [phone] /es/ [place] VARMA Signed: 07/05/2024 14:17 Receipt Acknowledged By: 07/08/2024 08:14 /es/ NUHA SYKESN RN-BC REGISTERED NURSE 07/06/2024 11:27 /es/ MANDO COOLEY LPN Licensed Practical Nurse 07/06/2024 ADDENDUM STATUS: COMPLETED Adding PCP to advise /lora/ MANDO COOLEY LPN Licensed Practical Nurse Signed: 07/06/2024 11:27 Receipt Acknowledged By: 07/09/2024 16:01 /bucky MARES MD PRIMARY CARE PHYSICIAN VENKATA MARES [place] Jul 06, 2024 11:27 AM ADDENDUM: LOCAL TITLE: Addendum STANDARD TITLE: ADDENDUM DATE OF NOTE: JUL 06, 2024@11:27:08 ENTRY DATE: JUL 06, 2024@11:27:09 AUTHOR: MANDO COOLEY COSIGNER: URGENCY: STATUS: COMPLETED Adding PCP to advise /es/ MANDO COOLEY LPN Licensed Practical Nurse Signed: 07/06/2024 11:27 Receipt Acknowledged By: 07/09/2024 16:01 /bucky MARES MD PRIMARY CARE PHYSICIAN --- Original Document --- 07/05/24 WALK-IN NOTE PRIMARY CARE (T): <====Click to Start Advanced Medical Support presents to the Primary Care clinic with the following request: [ ]Medication Renewal/Refill [ ]Consultation with Team RN [ ]Symptoms [ X ]Other The states they are: [ ]Waiting [ X ]Not Waiting No Walk in visit scheduled with PACT Nurse [ X ] At this encounter the Summers's demographics were verified. [ X ] At this encounter the 's Insurance information was verified. [ X ] At this encounter the below scheduled visits for the [place] were discussed and appointment reminder card was offered. Future appointments: 07/07/2024 09:30 CWM/SO/PHYSICAL THERAPY C 07/13/2024 10:00 CWM/SO/PHYSICAL THERAPY C 07/21/2024 09:00 CWM/SO/PHYSICAL THERAPY C 08/05/2024 09:30 CWM/SO/PHARM/PACT 2 09/13/2024 11:00 CWM/SO/PACT EIGHT 05/03/2025 10:00 NHM/OPTOMETRY/WELSH/ [place] requesting a call with his results for his sleep apnea test he recently had done. Best contact: [phone] /es/ [place] AMSFrancisco J Signed: 07/05/2024 14:17 Receipt Acknowledged By: 07/08/2024 08:14 /es/ NIMCO SYKES RN-BC REGISTERED NURSE 07/06/2024 11:27 /es/ MANDO COOLEY LPN Licensed Practical Nurse MANDO COOLEY Jul 05, 2024 02:14 PM PRIMARY CARE NOTE: LOCAL TITLE: WALK-IN NOTE PRIMARY CARE (T) STANDARD TITLE: PRIMARY CARE NOTE DATE OF NOTE: JUL 05, 2024@14:14 ENTRY DATE: JUL 05, 2024@14:14:26 AUTHOR: [place] EXP COSIGNER: URGENCY: STATUS: [...] [ X ] At this encounter the Summers's demographics were verified. [ X ] At this encounter the Summers's Insurance information was verified. [ X ] At this encounter the below scheduled visits for the were discussed and appointment reminder card was offered. Future appointments: 07/07/2024 09:30 CWM/SO/PHYSICAL THERAPY C 07/13/2024 10:00 CWM/SO/PHYSICAL THERAPY C 07/21/2024 09:00 CWM/SO/PHYSICAL THERAPY C 08/05/2024 09:30 CWM/SO/PHARM/PACT 2 09/13/2024 11:00 CWM/SO/PACT EIGHT 05/03/2025 10:00 NHM/OPTOMETRY/WELSH/ Summers requesting a call with his results for his sleep apnea test he recently had done. Best contact: [phone] /es/ [place] VARMA Signed: 07/05/2024 14:17 Receipt Acknowledged By: 07/08/2024 08:14 /es/ NUHA SYKESN RN-BC REGISTERED NURSE 07/06/2024 11:27 /es/ MANDO COOLEY LPN Licensed Practical Nurse 07/06/2024 ADDENDUM STATUS: COMPLETED Adding PCP to advise /lora/ MANDO COOLEY LPN Licensed Practical Nurse Signed: 07/06/2024 11:27 Receipt Acknowledged By: 07/09/2024 16:01 /lora/ VENKATA MARES MD PRIMARY CARE PHYSICIAN 07/09/2024 ADDENDUM STATUS: COMPLETED Please find where the had sleep studies done. I did not order the sleep studies and I do not have any results Thank you /lora/ VENKATA MARES MD PRIMARY CARE PHYSICIAN Signed: 07/09/2024 16:02 Receipt Acknowledged By: 07/12/2024 08:44 /lora/ MANDO COOLEY LPN Licensed Practical Nurse 07/12/2024 ADDENDUM STATUS: COMPLETED CALLED AND SPOKE WITH STATED DR MARES ORDERED AND TEST WAS AT THE [facility]. WILL REQUEST RESULTS. PLEASE request sleep study results from [facility]. /lora/ MANDO COOLEY LPN Licensed Practical Nurse Signed: 07/12/2024 08:50 Receipt Acknowledged By: * AWAITING SIGNATURE * CLAUDE VIZCAINO 07/12/2024 ADDENDUM STATUS: COMPLETED AMSA requested sleep study from [facility] as directed /es/ MORENITA SMITH AMSA Signed: 07/12/2024 10:24 [place]
--- OUTSIDE RECORDS SUMMARY | 2024-09-30 08:43 | XMS_ITS | Encounter Summary ---
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 Role Phone CHANI RHODES Primary Care [...] [facility] February 03, 2022 [id number] EMERITA BAUTISTA PATIENT [facility] MEDICAID MEDICAID MEDIC AID Oct 06, 2013 MEDICAI D [id number] EMERITA BAUTISTA PATIENT MEDICARE (WNR) MEDICARE (M) PART A Mar 06, 2015 PART A [id number] EMERITA BAUTISTA PATIENT MEDICARE (WNR) MEDICARE (M) PART B Mar 06, 2015 PART B [id number] [phone] EMERITA BAUTISTA PATIENT MEDICARE (WNR) MEDICARE (M) PART B Mar 06, 2015 PART B [id number] EMERITA BAUTISTA PATIENT MEDICARE (WNR) MEDICARE (M) PART A Mar 06, 2015 PART A [id number] EMERITA BAUTISTA PATIENT MEDICARE (WNR) MEDICARE (M) PART B Mar 06, 2015 PART B [id number] EMERITA BAUTISTA PATIENT MEDICARE (WNR) MEDICARE (M) PART B Mar 06, 2015 PART B [id number] EMERITA BAUTISTA PATIENT MEDICARE (WNR) MEDICARE (M) PART A Mar 06, 2015 PART A [id number] [phone] EMERITA BAUTISTA PATIENT Selected Encounter This section includes the information on record at [facility] for the Encounter. Date/Time Encounter Type Encounter Description Reason Pro vider Source Jul 13, 2024 10:33 AM Outpatient Encounter PRIMARY CARE/MEDICINE IHE Encounter Template Text not used by [place] Plan of Treatment: Future Appointments (+ 6 months) and Future Tests (+/- 45 days) The Plan of Treatment section includes future care activities for the patient [facility] This [...] 28, 2024 10:00 AM AMBULATORY - REHAB [facility] Aug 05, 2024 09:30 AM AMBULATORY - MEDICINE [place] [place] [facility] Aug 19, 2024 09:00 AM AMBULATORY - MEDICINE [facility] Aug 24, 2024 11:00 AM AMBULATORY - PSYCHIATRY [place] [facility] [place] [facility] Aug 24, 2024 03:00 PM AMBULATORY - REHAB [facility] Aug 27, 2024 10:00 AM AMBULATORY - MEDICINE [place] [facility] [place] [place] [facility] Sep 16, 2024 08:30 AM AMBULATORY - MEDICINE [facility] Sep 23, 2024 03:30 PM AMBULATORY - MEDICINE [place] [facility] [place] [place] [facility] Sep 24, 2024 12:00 PM AMBULATORY - MEDICINE [place] [facility] [place] [facility] Sep 30, 2024 08:55 AM AMBULATORY - MEDICINE [place] [facility] [place] [facility] Oct 15, 2024 08:00 AM AMBULATORY - MEDICINE [place] Oct 27, 2024 09:30 AM AMBULATORY - MEDICINE [place] [facility] [place] [place] [facility] Nov 04, 2024 03:00 PM AMBULATORY - MEDICINE [place] [facility] [place] [place] [facility] Nov 18, 2024 09:30 AM AMBULATORY - NONE [place] Nov 18, 2024 09:30 AM AMBULATORY - [place]ICINE [place] [facility] Active, Pending, and Scheduled Orders This [...] 04:18 PM Consult Order COMMUNITY CARE-BH PSYCHOTHERAPY [facility] Inventory [facility] Aug 25, 2024 01:01 PM Consult Order COMMUNITY CARE-[facility]TH[facility] GENERAL Cons Inventory [facility] Social History: Smoking Status (Most current) and [...] 11, 2023 08:30 AM [facility] Tobacco Use History This section includes a history of the smoking, or tobacco-related health factors, that were collected on or before the date of the Encounter. The data comes from the [facility] facility where the Encounter took place. Date/Time Smoking Status/Tobacco Use Comment F acraul Mar 11, 2023 08:30 AM VA-TOBACCO QUIT 15 YRS OR MORE [facility] [place] [facility] Dec 27, 2020 02:00 PM VA-TOBACCO FORMER USER [facility] [place] [facility] Dec 27, 2020 02:00 PM VA-TOBACCO QUIT 15 [facility]RS OR [facility] Advance Directives: All historical and current [...] Encounter. Date/Time Encounter Note(s) Provider Source Jul 13, 2024 10:33 AM PRIMARY CARE NOTE: LOCAL TITLE: WALK-IN NOTE PRIMARY CARE (T) STANDARD TITLE: PRIMARY CARE NOTE DATE OF NOTE: JUL 13, 2024@10:33 ENTRY DATE: JUL 13, 2024@10:33:46 AUTHOR: MAURA JOHNSON EXP COSIGNER: URGENCY: STATUS: COMPLETED WALK-IN NOTE PRIMARY CARE (T) Has ADDENDA <====Click to Start Advanced Medical Support [place] presents to the Primary Care clinic with the following request: [ ]Medication Renewal/Refill [ ]Consultation with Team RN [ ]Symptoms [ X ]Other The [place] states they are: [ ]Waiting [ X ]Not Waiting No Walk in visit scheduled with PACT Nurse [ X ] At this encounter the 's demographics were verified. [ X ] At this encounter the [place]'s Insurance information was verified. [ X ] At this encounter the below scheduled visits for the were discussed and appointment reminder card was offered. Future appointments: 07/21/2024 09:00 CWM/SO/PHYSICAL THERAPY C 07/28/2024 10:00 CWM/SO/PHYSICAL THERAPY C 08/05/2024 09:30 CWM/SO/PHARM/PACT 2 08/27/2024 10:00 CWM/NO/PAIN MD CLINIC 09/13/2024 11:00 CWM/SO/PACT EIGHT 05/03/2025 10:00 NHM/OPTOMETRY/WELSH/ is requesting a referral to see a mental health therapist. /lora/ MAURA VARMA Signed: 07/13/2024 10:34 Receipt Acknowledged By: 07/13/2024 11:26 /es/ NIMCO SYKES RN-BC REGISTERED NURSE 07/13/2024 15:53 /es/ MANDO COOLEY LPN Licensed Practical Nurse 07/13/2024 ADDENDUM STATUS: COMPLETED Called and inquired reason for mental health services request and [place] advised that he has depression and anxiety. [place] denied si at this time and stated that he does know how to access suicide hotline. [place] was also advised that there is mental health primary care provider available to speak with at [facility] if he feels need and contact PACT or request appt at [facility] front office agent. author placed [facility] mental health consult as requested and held for provider review. /lora/ NIMCO SYKES RN-BC REGISTERED NURSE Signed: 07/13/2024 11:34 MAURA JOHNSON
--- OUTSIDE RECORDS SUMMARY | 2024-09-30 08:43 | XMS_ITS | Encounter Summary ---
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 Organization [facility] [place] Address [address] [place] [id number] Care Team Providers Care Soubrette Name Role Phone CHANI RHODES Primary Care [...] [facility] February 03, 2022 [id number] EMERITA BAUTISTA PATIENT [facility] MEDICAID MEDICAID MEDIC AID Oct 06, 2013 MEDICAI D [id number] EMERITA BAUTISTA PATIENT MEDICARE (WNR) MEDICARE (M) PART A Mar 06, 2015 PART A [id number] [phone] EMERITA BAUTISTA PATIENT MEDICARE (WNR) MEDICARE (M) PART B Mar 06, 2015 PART B [id number] EMERITA BAUTISTA PATIENT MEDICARE (WNR) MEDICARE (M) PART B Mar 06, 2015 PART B [id number] [phone] EMERITA BAUTISTA PATIENT MEDICARE (WNR) MEDICARE (M) PART A Mar 06, 2015 PART A [id number] EMERITA BAUTISTA PATIENT MEDICARE (WNR) MEDICARE (M) PART B Mar 06, 2015 PART B [id number] EMERITA BAUTISTA PATIENT MEDICARE (WNR) MEDICARE (M) PART A Mar 06, 2015 PART A [id number] EMERITA BAUTISTA PATIENT MEDICARE (WNR) MEDICARE (M) PART B Mar 06, 2015 PART B [id number] [phone] EMERITA BAUTISTA PATIENT Selected Encounter This section includes the information on record at [place] for the Encounter. Date/Time Encounter Type Encounter Description Reason Provider Source Jul 13, 2024 10:00 AM THERAPEUTIC EXERCISES PHYSICAL THERAPY ICD-10-CM M25.569 Pain in unspecified knee LEIDY DANIEL Behzad Encounter Template Text not used by [place] Assessments - Encounter Diagnoses This section includes the primary and secondary diagnoses documented for the Encounter. Date/Time Primary/Secondary Diagnosis Diagnosis Name Provider Source Jul 13, 2024 10:26 AM PRIMARY Pain in unspecified knee BRICE DANIEL Plan of Treatment: Future Appointments (+ 6 months) and Future Tests (+/- 45 days) The Plan of Treatment section includes future care activities for the patient from all [place] treatmentfacilities. This section includes future appointments and future orders which are active, pending or scheduled. Future Appointments This section includes appointments that were scheduled to occur 6 months from the date of the Encounter, up to a maximum of 20 appointments. The data comes from all [place] treatment facilities. Appointment Date/Time Appointment Type Appointme nt Facility Name Jul 28, 2024 10:00 AM AMBULATORY - REHAB [facility] Aug 05, 2024 09:30 AM AMBULATORY - MEDICINE [place] [facility] [place] [facility] Aug 19, 2024 09:00 AM AMBULATORY - MED[facility] Aug 24, 2024 11:00 AM AMBULATORY - PSYCHIATRY [place] [facility] [place] [facility] Aug 24, 2024 03:00 PM AMBULATORY - REHAB [facility] Aug 27, 2024 10:00 AM AMBULATORY - MEDICINE [place] [facility] [place] [facility] Sep 16, 2024 08:30 AM [facility] Sep 23, 2024 03:30 PM [facility] - MEDICINE [facility] [place] [facility] Sep 24, 2024 12:00 PM AMBULATORY - MEDICINE [facility] [place] [facility] Sep 30, 2024 08:55 AM AMBULATORY - MEDICINE [facility] [place] [facility] Oct 15, 2024 08:00 AM [facility] Oct 27, 2024 09:30 AM AMBULATORY - MEDICINE [facility] [place] [facility] Nov 04, 2024 03:00 PM AMBULATORY - MEDICINE [place] [facility] [place] [facility] Nov 18, 2024 09:30 AM AMBULATORY - NONE [place] Nov 18, 2024 09:30 AM [facility] [place] [facility] Active, Pending, and Scheduled Orders This section includes a listing of several types of active, pending, and scheduled orders, including clinic medications orders, diagnostic test orders, procedure orders and consult orders; where the start date of the order is 45 days before the date of the Encounter or 45 days after the date of theEncounter. The data comes from all [place] treatment facilities. Test Date/Time Test Type Test Details Facility Name Jul 14, 2024 04:18 PM Consult Order [facility] Aug 25, 2024 01:01 PM Consult Order [facility] Social History: Smoking Status (Most current) and Tobacco Use (All prior to encounter date) This section includes the most current, and the historical, smoking and tobacco- related health factors from the [place] facility where the Encounter took place. Current Smoking Status This section includes the most current smoking, or tobacco-related health factor, from the [place] facility where the Encounter took place. Date/Time Current Smoking Status Comment Facil ity Mar 08, 2024 09:00 AM VA-TOBACCO FORMER USER [facility] Tobacco Use History This section includes a history of the smoking, or tobacco-related health factors, that were collected on or before the date of the Encounter. The data comes from the [place] facility where the Encounter took place. Date/Time Smoking Status/Tobacco Use Comment F acility Mar 08, 2024 09:00 AM [place]-TOBACCO QUIT 15 YRS OR MORE [facility] Mar 27, 2022 09:30 AM VA-TOBACCO FORMER USER [facility] Mar 27, 2022 09:30 AM VA-TOBACCO QUIT 15 YRS OR MORE [facility] Dec 22, 2018 10:29 AM VA-TOBACCO FORMER USER [facility] Dec 22, 2018 10:29 AM VA-TOBACCO QUIT 15 YRS OR MORE [facility] Mar 19, 2018 11:33 AM VA-TOBACCO FORMER USER [facility] Mar 19, 2018 11:33 AM VA-TOBACCO QUIT 15 YRS OR MORE [facility] May 13, 2017 01:22 PM QUIT TOBACCO USE > 7 YEARS AGO quit 24 yrs ago [facility] Nov 15, 2015 09:48 AM QUIT TOBACCO USE > 7 YEARS AGO States he last smoked 21 years ago [facility] Dec 07, 2009 02:51 PM QUIT TOBACCO USE > 7 YEARS AGO [facility] Advance Directives: All historical and current Section Date Range: From patient's date of to the date document was created. This section includes ALL of a patient's completed or amended [place] Advance and Rescinded Directives. The entries below indicate that a directive exists for the patient, but an actual copy is not included with this document. The data comes from all [place] facilities. Date Advance Directives Provider Source May 23, 2011 ADVANCE DIRECTIVE JUD BROOKS Encounter Notes: All associated encounter notes This section contains the clinical notes associated to the Encounter. Date/Time Encounter Note(s) Provider Source Jul 13, 2024 09:58 AM PHYSICAL THERAPY N OTE: [facility] TITLE: PHYSICAL THERAPY STANDARD TITLE: PHYSICAL THERAPY NOTE DATE OF NOTE: JUL 13, 2024@09:58 ENTRY DATE: JUL 13, 2024@09:58:49 AUTHOR: BRICE DANIEL COSIGNER: URGENCY: STATUS: COMPLETED Initial Evaluation date: 06/23/24 Progress Note Date: 07/23/24 Treatment #: 2 Treatment time: 30 Diagnosis:Pain in unspecified Knee(ICD-10-CM M25.569) Provider:VENKATA MARES PT Treatment Precautions: Patient identified by full name and date of Resting vitals: HR: 77 BP: 138/83 SUBJECTIVE: Patient states they have been having a lot pain in both knees and their lower back lately. Notes prolonged standing has been tough. OBJECTIVE: Therapeutic Exercise: Mins: 28 step ups 2x15 standing hip abduction 2x15 red band lateral stepping with red band at ankles in parallel bars 2mins sidelying clamshell red band 2x15 DL bridge 10reps red band SLR 10reps hamstring stretch with strap 45s each Manual therapy: Mins: Neuro re-ed: Mins: Other: Mins: Modalities: Mins: [] contraindication screen completed prior to modality [] skin intact pre/post modality Access Code: [email or web address] URL: [email or web address]/ Date: 06/28/2024 Prepared by: Brice Daniel Exercises - Clamshell with Resistance - 1 x daily - 7 x weekly - 3 sets - 10-20 reps - Sit to Stand with Armchair - 1 x daily - 7 x weekly - 2-3 sets - 10-15 reps - Supine Active Straight Leg Raise - 1 x daily - 7 x weekly - 2-3 sets - 10-20 reps - Step Up - 1 x daily - 7 x weekly - 2 sets - 10-15 reps - Standing Hip Abduction with Counter Support - 1 x daily - 7 x weekly - 2-3 sets - 10-15 reps - Standing Knee Flexion with Counter Support - 1 x daily - 7 x weekly - 2-3 sets - 10-15 reps PATIENT EDUCATION: Mins: Patient education was provided for all aspects of care during this clinical encounter. ASSESSMENT: Patient seen for routine follow up. Provided instruction through progressions in LE strenghtening exercises. Patient reporting lower back or knee pain throughout visit. Provided substitutions and modifications to try to provide patient with minially painful exercises with fair success. Patent with some complaints of bilateral anterior hip pain with SLR. PLAN: Progress as tolerated focusing on improving L knee ROm, improving LE flexibility, progressive glute/quad/hamstring strengthening, HEp teaching and progression [x]Low impact cardio: [x]Nustep []Recumbent bike []Recumbent elliptical []TM []Manual: []STM/DTM []METs/SCS []IASTM []Joint mobilizations [x]Therex: []Progressive UQ []Progressive Core [x]Progressive LQ []UQ flex [] Lumbar flex [x]LQ flex []Foam rolling [x]Proprioception [x]Neuro Re-education: [x]Static [x]Dynamic [x]Dual-Task [x]Education: []Posture []Ergonomics [x]Bodymechanics [x]Self-care strategies [] PNE []Modalities(PRN): []Heat/Ice []Estim/Tens []Mechanical traction []K-tape [] Biofreeze /es/ BRICE DANIEL PT, DPT PHYSICAL THERAPIST Signed: 07/13/2024 10:30 BRICE DANIELFIELD
--- OUTSIDE RECORDS SUMMARY | 2024-09-30 08:43 | XMS_ITS | Encounter Summary ---
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 Address [address] [place] [id number] Care Team Providers Care Finger Lift Operator Name Role Phone CHANI RHODES Primary [...] [facility] February 03, 2022 [id number] EMERITA BAUTISTA PATIENT [facility] MEDICAID MEDICAID MEDIC AID Oct 06, 2013 MEDICAI D [id number] EMERITA BAUTISTA PATIENT MEDICARE (WNR) MEDICARE (M) PART A Mar 06, 2015 PART A [id number] [phone] EMERITA BAUTISTA PATIENT MEDICARE (WNR) MEDICARE (M) PART B Mar 06, 2015 PART B [id number] EMERITA BAUTISTA PATIENT MEDICARE (WNR) MEDICARE (M) PART B Mar 06, 2015 PART B [id number] EMERITA BAUTISTA PATIENT MEDICARE (WNR) MEDICARE (M) PART A Mar 06, 2015 PART A [id number] EMERITA BAUTISTA PATIENT MEDICARE (WNR) MEDICARE (M) PART B Mar 06, 2015 PART B [id number] [phone] EMERITA BAUTISTA PATIENT MEDICARE (WNR) MEDICARE (M) PART B Mar 06, 2015 PART B [id number] [phone] EMERITA BAUTISTA PATIENT MEDICARE (WNR) MEDICARE (M) PART A Mar 06, 2015 PART A [id number] EMERITA BAUTISTA PATIENT Selected Encounter This section includes the information on record at [place] for the Encounter. Date/Time Encounter Type Encounter Description Reason Provider Source Jun 28, 2024 07:30 AM THERAPEUTIC EXERCISES PHYSICAL THERAPY ICD-10-CM M25.569 Pain in unspecified knee LEIDY DANIEL Behzad Encounter Template Text not used by [place] Assessments - Encounter Diagnoses This section includes the primary and secondary diagnoses documented for the Encounter. Date/Time Primary/Secondary Diagnosis Diagnosis Name Provider Source Jun 28, 2024 07:41 AM PRIMARY Pain in unspecified knee BRICE [...] Appointment Type Appointme nt Facility Name Jul 01, 2024 02:45 PM [facility] [place] [facility] Jul 06, 2024 08:00 AM [facility]AT[facility] Jul 13, 2024 10:00 [facility] 10[facility] Aug 05, 2024 09:30 AM [facility] - [facility] [place] [facility] [place] [facility] Aug 19, 2024 09:00 AM AM[facility]ULATORY - MED[facility]INE [facility] Aug 24, 2024 11:00 AM [facility] [place] [facility] Aug 24, 2024 03:00 PM [facility]ORY [facility] [place] Aug 27, 2024 10:00 AM AMBULATORY - [facility]INE [facility] [place] [facility] Sep 16, 2024 08:30 AM [facility] 23, 2024 03:30 PM [facility] - [facility]IC[facility] [place] [facility] Sep 24, 2024 12:00 PM AMBULATORY - [facility]INE [facility] [place] [facility] Sep 30, 2024 08:55 AM AMBULATORY - MEDICINE [facility] [place] [facility] Oct 15, 2024 08:00 AM AM[facility]ULATORY [facility]INE [facility] Oct 27, 2024 09:30 AM AMBULATORY - MEDICINE [facility] [place] [facility] Nov 04, 2024 03:00 PM AMBULATORY - MEDICINE [facility] [place] [facility] Nov 18, 2024 09:30 AM AMBULATORY - NONE [facility] [place] Nov 18, 2024 09:30 AM [facility] [place] [facility] Active, Pending, and Scheduled Orders This section includes a listing of several types of active, pending, and scheduled orders, including clinic medications orders, diagnostic test orders, procedure orders and consult orders; where the start date of the order is 45 days before the date of the Encounter or 45 days after the date of theEncounter. The data comes from all [place] treatment facilities. Test Date/Time Test Type Test Details Facility Name Jul 14, 2024 04:18 PM Consult Order [facility]- PSYCHOTHERAPY Cons [employer] Technologist's Choice [place] Social History: Smoking Status (Most current) and [...] 08, 2024 09:00 AM VA-TOBACCO FORMER USER [place] Tobacco Use History This section includes a history of the smoking, or tobacco-related health factors, that were collected on or before the date of the Encounter. The data comes from the [place] facility where the Encounter took place. Date/Time Smoking Status/Tobacco Use Comment F acility Mar 08, 2024 09:00 AM VA-TOBACCO QUIT 15 YRS OR MORE [place] Mar 27, 2022 09:30 AM VA-TOBACCO FORMER USER [place] Mar 27, 2022 09:30 AM VA-TOBACCO QUIT 15 YRS OR MORE [place] Dec 22, 2018 10:29 AM VA-TOBACCO FORMER USER [place] Dec 22, 2018 10:29 AM VA-TOBACCO QUIT 15 YRS OR MORE [place] Mar 19, 2018 11:33 AM VA-TOBACCO FORMER USER [place] Mar 19, 2018 11:33 AM VA-TOBACCO QUIT 15 YRS OR MORE [place] May 13, 2017 01:22 PM QUIT TOBACCO USE > 7 YEARS AGO quit 24 yrs ago [place] Nov 15, 2015 09:48 AM QUIT TOBACCO USE > 7 YEARS AGO States he last smoked 21 years ago [place] Dec 07, 2009 02:51 PM QUIT TOBACCO USE > 7 YEARS AGO [place] Advance Directives: All historical and current Section [...] the Encounter. Date/Time Encounter Note(s) Provider Source Jun 28, 2024 07:29 AM PHYSICAL THERAPY N OTE: [facility] TITLE: PHYSICAL THERAPY STANDARD TITLE: PHYSICAL THERAPY NOTE DATE OF NOTE: JUN 28, 2024@07:29 ENTRY DATE: JUN 28, 2024@07:29:34 AUTHOR: BRICE DANIEL COSIGNER: URGENCY: STATUS: COMPLETED Initial Evaluation date: 06/23/24 Progress Note Date: 07/23/24 Treatment #: 1 Treatment time: 30 Diagnosis:Pain in unspecified Knee(ICD-10-CM M25.569) Provider:VENKATA MARES PT Treatment Precautions: Patient identified by full name and date of SUBJECTIVE: patient states they had a quiet weekend, was in quite a bit of pain in the back and knee. OBJECTIVE: Therapeutic Exercise: Mins: 26 nustep 6mins step ups 2x15 standing hip abduction 2x15 standing knee flexion 2x15 standing gastroc stretch 2x30s semi-tandem airex 2x30s Manual therapy: Mins: Neuro re-ed: Mins: Other: Mins: Modalities: Mins: [] contraindication screen completed prior to modality [] skin intact pre/post modality Access Code: [email or web address] URL: [email or web address] Date: 06/28/2024 Prepared by: Brice Daniel Exercises [...] sets - 10-15 reps PATIENT EDUCATION: Mins: 2 Patient education was provided for all aspects of care during this clinical encounter. Provided updated written HEP to patient reviewing proper form sets reps and frequency and safety precautions with patient verbalizing and demonstrating good understanding during visit. ASSESSMENT: Patient seen for routine follow up. Patient with good tolerance to previous HEP. Provided instruction through progressions in more dynamic strengtrhening exercises with good tolerance from patient. Provided updated written HEP reviewing with patient. PLAN: Progress as tolerated focusing on improving [...] BRICE DANIEL PT, DPT PHYSICAL THERAPIST Signed: 06/28/2024 07:59 BRICE DANIEL [place]
--- OUTSIDE RECORDS SUMMARY | 2024-09-30 08:43 | XMS_ITS | Encounter Summary ---
Author Name [facility] [place] Address [address] [place] [address] Care Team Providers Care Shovel Loader Operator Name Role Phone CHANI RHODES Primary [...] to Policy Zayas [employer] DENTAL DENTAL INSURANCE [facility] February 03, 2022 [id number] EMERITA BAUTISTA PATIENT [facility] MEDICAID MEDICAID MEDIC AID Oct 06, 2013 MEDICAI D [id number] EMERITA BAUTISTA PATIENT MEDICARE (WNR) MEDICARE (M) PART A Mar 06, 2015 PART A [id number] EMERITA BAUTISTA PATIENT MEDICARE (WNR) MEDICARE (M) PART B Mar 06, 2015 PART B [id number] EMERITA BAUTISTA PATIENT MEDICARE (WNR) MEDICARE (M) PART B Mar 06, 2015 PART B [id number] EMERITA BAUTISTA PATIENT MEDICARE (WNR) MEDICARE (M) PART A Mar 06, 2015 PART A [id number] EMERITA BAUTISTA PATIENT MEDICARE (WNR) MEDICARE (M) PART B Mar 06, 2015 PART B [id number] EMERITA BAUTISTA PATIENT MEDICARE (WNR) MEDICARE (M) PART B Mar 06, 2015 PART B [id number] [phone] EMERITA BAUTISTA PATIENT MEDICARE (WNR) MEDICARE (M) PART A Mar 06, 2015 PART A [id number] EMERITA BAUTISTA PATIENT Selected Encounter This section includes the information on record at [place] for the Encounter. Date/Time Encounter Type Encounter Description Reason Provider Source Jun 23, 2024 08:00 AM PT EVAL MOD COMPLEX 30 MIN PHYSICAL THERAPY ICD-10-CM M25.569 Pain in unspecified knee BRICE DANIEL [facility] Encounter Template Text not used by [place] Assessments - Encounter Diagnoses This section includes the primary and secondary diagnoses documented for the Encounter. Date/Time Primary/Secondary Diagnosis Diagnosis Name Provider Source Jun 23, 2024 08:58 AM PRIMARY Pain in unspecified knee BRICE DANIEL [place] Plan of Treatment: Future Appointments (+ 6 months) and Future Tests (+/- 45 days) The Plan of Treatment section includes future care activities for the patient from all [place] treatmentfacilities. This section includes future appointments and future orders which are active, pending or scheduled. Future Appointments This section includes appointments that were scheduled to occur 6 months from the date of the Encounter, up to a maximum of 20 appointments. The data comes from all [place] treatment facilities. Appointment Date/Time Appointment Type Appointme nt Facility Name Jun 28, 2024 07:30 AM [facility] Jul 01, 2024 02:45 PM [facility]ICINE [facility] BRIANNA SMITH [facility] Jul 06, 2024 08:00 AM [facility] Jul 13, 2024 10:00 [facility] Jul 28, 2024 10:00 AM [facility] Aug 05, 2024 09:30 AM AMBULATORY - MEDICINE [facility] NTRBrittany SMITH [facility] Aug 19, 2024 09:00 AM AM[place] Aug 24, 2024 11:00 AM [facility]UL[place] [place] [facility] [place] [facility] Aug 24, 2024 03:00 PM AMBULATORY - RE[facility]AB MED[facility] [place] Aug 27, 2024 10:00 AM AMBULATORY - MEDICINE [place] [facility] Sep 16, 2024 08:30 AM [facility] Sep 23, 2024 03:30 PM AMBULATORY - MEDICINE [place] [facility] Sep 24, 2024 12:00 PM AMBULATORY - MEDICINE [place] [facility] Sep 30, 2024 08:55 AM AMBULATORY - MEDICINE [place] [facility] Oct 15, 2024 08:00 AM AMBULATORY [facility] Oct 27, 2024 09:30 AM AMBULATORY - MEDICINE [place] [facility] Nov 04, 2024 03:00 PM AMBULATORY - MEDICINE [place] [facility] Nov 18, 2024 09:30 AM AM[facility]ULATORY - NONE [facility] Nov 18, 2024 09:30 AM AMBUL[place]ORY - [place]IC[place] [facility] Active, Pending, and Scheduled Orders This section includes a listing of several types of active, pending, and scheduled orders, including clinic medications orders, diagnostic test orders, procedure orders and consult orders; where the start date of the order is 45 days before the date of the Encounter or 45 days after the date of theEncounter. The data comes from all [place] treatment facilities. 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 Current Smoking Status This section includes the most current smoking, or tobacco-related health factor, from the [place] facility where the Encounter took place. Date/Time Current Smoking Status Comment Ana bianchi Mar 08, 2024 09:00 AM VA-TOBACCO FORMER USER [place] Tobacco Use History This section includes a history of the smoking, or tobacco-related health factors, that were collected on or before the date of the Encounter. The data comes from the [place] facility where the Encounter took place. Date/Time Smoking Status/Tobacco Use Comment F acility Mar 08, 2024 09:00 AM VA-TOBACCO QUIT 15 YRS OR MORE [place] Mar 27, 2022 09:30 AM VA-TOBACCO FORMER USER [facility] [facility] Mar 27, 2022 09:30 AM VA-TOBACCO QUIT 15 YRS OR MORE [place] Dec 22, 2018 10:29 AM VA-TOBACCO FORMER USER [place] Dec 22, 2018 10:29 AM VA-TOBACCO QUIT 15 YRS OR MORE [place] [facility] Mar 19, 2018 11:33 AM VA-TOBACCO FORMER USER [place] Mar 19, 2018 11:33 AM VA-TOBACCO QUIT 15 YRS OR MORE [place] May 13, 2017 01:22 PM QUIT TOBACCO USE > 7 YEARS AGO quit 24 yrs ago [place] Nov 15, 2015 09:48 AM QUIT TOBACCO USE > 7 YEARS AGO States he last smoked 21 years ago [place] Dec 07, 2009 02:51 PM QUIT TOBACCO USE > 7 YEARS AGO [place] Advance Directives: All historical and current Section Date Range: From patient's date of to the date document was created. This section includes ALL of a patient's completed or amended [place] Advance and Rescinded Directives. The entries below indicate that a directive exists for the patient, but an actual copy is not included with this document. The data comes from all [place] facilities. Date Advance Directives Provider Source May 23, 2011 ADVANCE DIRECTIVE JUD BROOKS Encounter Notes: All associated encounter notes This section contains the clinical notes associated to the Encounter. Date/Time Encounter Note(s) Provider Source Jun 23, 2024 07:57 AM PHYSICAL THERAPY C ONSULT: LOCAL TITLE: PHYSICAL THERAPY CONSULT STANDARD TITLE: PHYSICAL THERAPY CONSULT DATE OF NOTE: JUN 23, 2024@07:57 ENTRY DATE: JUN 23, 2024@07:57:49 AUTHOR: BRICE DANIEL COSIGNER: URGENCY: STATUS: COMPLETED Initial Evaluation date: 06/23/24 Progress Note Date: 07/23/24 Treatment #: eval Treatment time: 45 Diagnosis:Pain in unspecified Knee(ICD-10-CM M25.569) Provider:VENKATA MARES PT Treatment Precautions: Patient identified by full name and date of Resting Vitals: HR: 83 BP: 124/74 SUBJECTIVE: History of Current injury: Patient states their L knee has been giving them trouble on and off since they were the . Patient states the L knee flared up significantly after they had their R knee replaced in 2019. States they feel like they had to rely more heavily on the LLE when they were recovering from RTKA. Patient states they feel most of their pain on the outside of their L knee primarily. Patient states the pain is usually worse in the morning and evening, gets a little better once they get going. Patient states their L knee will buckle often and states they have had some near falls because of the knee instability. States they have been using a cane for the past 6-7 months because of the knee buckling. Patient states primary aggravating factors include prolonged sitting, prolonged standing. Patient states he has been prescribed tylenol and vicodin and lidocaine patches which do not help with their pain. Patient states they have pre-existing lower back pain. Notes a hx of RTKA by Dr. Jones at [facility] in 2019. Patient states they have had arthroscopic surgeries on their L knee. Notes a surgery on the L foot to adress a fallen arch. Patient denies recent cardiac pathology like heart attacks, denies pacemaker. Currently has disability lawsuit against their previous employer Pain current: 7-8/10 Pain best: 7-8/10 Pain worst: 10/10 Current exercise routine: used to exercise routienly, but feels limited in their ability to exercise due to their pain Work: not currently working Patient Goal: get the L knee replaced Number of days per week with pain: 7/7 SANE report Please rate your ability to use your injured area on a 0% to 100% scale, with 0% being unable to use the injured area and 100% being normal use of injured area in your daily activity: OBJECTIVE: Red flags: Recent Trauma- Age (50+)+ Hx of Cancer- Fever/chills/night sweats- Unexplained weight loss- Recent infection- Immunosuppression- Night pain- Saddle anesthesia- Bowel/bladder dysfunction- LE neurological deficit- Psychosocial flags: mental health dx+ entrenched/unhelpful beliefs about pain- clinically relevant catastrophization- signs of kinesiophobia- Imaging findings: Gait: antalgic with decreased stance time LLE * = pain during testing ROM: Knee flexion AROM L: 100* R: Knee flexion PROM L: 105* R: Knee Extension AROM L: -2* R: Knee Extension PROM L: 0* R: Ankle Dorsiflexion L: R: Strength: Hip flexion L: 4/5 R: 4+/5 Knee extension L: 4-/5* R: 4/5 Knee flexion L: 4-/5* R: 4/5 Ankle DF L: /5 R: /5 Ankle INV L: /5 R: /5 Ankle EV L: /5 R: /5 Hip ER L: 4-/5 R: 45 Hip ABD L: 4-/5 R: 4/5 Hip Extension L: /5 R: /5 Glute Max: L: /5 R: /5 Hip Special Tests: SLR Sign of the Buttock SCOTTIE Scour FADDIR AMARILIS SONG 90/90 HS LEG LENGTH KINJAL Knee specials tests: Symptomatic knee OA: + - Age > 58 AND palpable crepitus in the knee (could be patellofemoral or tibiofemoral joints) Palpation: Joint Mobility: INTERVENTIONS: Therapeutic Exercise: Mins: Manual therapy: Mins: Neuro re-ed: Mins: Other: Mins: Modalities: Mins: [] contraindication screen completed prior to modality [] skin intact pre/post modality Access Code: [email or web address] URL: [email or web address] Date: 06/23/2024 Prepared by: Brice Daniel Exercises - Seated Hip Abduction with Resistance - 1 x daily - 7 x weekly - 3 sets - 10 reps - Clamshell with Resistance - 1 x daily - 7 x weekly - 3 sets - 10-20 reps - Sit to Stand with Armchair - 1 x daily - 7 x weekly - 2-3 sets - 10-15 reps - Seated Heel Slide - 1 x daily - 7 x weekly - 2-3 sets - 10-20 reps - Seated Long Arc Quad - 1 x daily - 7 x weekly - 2-3 sets - 10-20 reps - Supine Active Straight Leg Raise - 1 x daily - 7 x weekly - 2-3 sets - 10-20 reps Patient education: Mins: 15 Discussed potential etiology of symptoms with patient including potential structures involved and how this relates to exercises prescribed and POC discussing frequency and duration of services to be provided with patient verbalizing good understanding and agreement with POC. Provided written HEP to patient with therex from today reviewing proper form sets reps and frequency and safety precautions with patient verbalizing and demonstrating good understanding in clinic. Provided verbal instruction and demonstration for donning and doffing hinged knee brace, discussed parameters for wear, as well as care of the device. Patient verbalizes good understanding. Good fit of knee brace size L. ASSESSMENT: Patient is a 58yo seen for physical therapy evaluation following referral for L knee pain. PMH significant for: 1. Pain of bilateral knee joints 2. Abdominal pain 3. CLBP - chronic low back pain 4. Cervical radiculopathy 5. HTN - Hypertension ([facility] [id number]) 6. Diabetes Mellitus Type 2 ([facility] [id number]) 7. Allergic Rhinitis ([facility] [id number]) 8. Vitamin D Deficiency ([facility] [id number]) 9. Hyperlipidemia ([facility] [id number]) 10. Fatty liver 11. Fatigue 12. Edema of lower leg 13. Back pain 14. History of cholecystectomy 15. H/O: osteoarthritis 16. Depression 17. Onychomycosis of toenails 18. Knee pain (SNOMED CT 5278555744) 19. Osteoarthritis 20. Foot pain 21. Diabetic neuropathy 22. Erectile dysfunction 23. Type 2 diabetes mellitus 24. Flat Feet * 25. Depressive disorder (SNOMED CT 70371425) 26. History of male erectile disorder (SNOMED CT 383760502) 27. Disorder of urethra 28. PCP: Gm: [phone] 29. Knee: arthralgia 30. Ankle: arthralgia 31. Appendectomy When Done for Indicated Purpose at Time of Other Major Procedur 32. Hearing loss 33. Tinnitus 34. Arthritis, Traumatic, Primary Patient presents with primary complaint of chronic L lateral knee pain. Pain rated 7-8/10 at current and at best, 10/10 at worst on NPRS. Primary aggravating factors include prolonged sitting, prolonged standing. On physical assessment, patient primary symptoms reproduced with L knee flexion/extension ROM, R knee extension/felxion MMT, double leg squatting. Additional impairments that may contribute to condition include impaired knee ROM, impaired LE flexibility, impaired glute/quad/hamstring strength. Based on patient hx and findings of assessment symptoms appear most consistent with L knee OA. Patient reports these symptoms impact their ability to complete their normal daily tasks like prolonged sitting, prolonged standing. Patient requires skilled physical therapy services in order to address these impairments ad activity limitations and to achieve patient goal of get the L knee replaced . GOALS: in 4-6weeks, patient will demonstrate: consistent carryover of HEP 5/7 days per week with patient able to independently teach back 75% of exercises 2pt decrease in pain level at worst to improve patient ability to complete most symptomatic tasks 10% improvement on SANE score to improve patient ability to complete typical daily tasks decrease in total days with pain by 2 days to improve patient QOL L knee flexion ROm 110 deg L knee extension AROM 0deg L knee flexion AROM 120deg 1/2 grade improvement in L knee extension MMT full grade improvement in L knee extension MMT 1/2 grade improvement in L knee flexion MMT 1/2 grade improvement in hip ABD MMT PLAN: Discussed POC with patient who verbalizes agreement with skilled PT services [id number] focusing on improving L knee ROm, improving [...] BRICE DANIEL PT, DPT PHYSICAL THERAPIST Signed: 06/23/2024 08:58 BRICE DANIEL [place]
--- OUTSIDE RECORDS SUMMARY | 2024-09-30 08:43 | XMS_ITS ---
Author Name [place] Address [address] [place] [address] Care Team Providers Care Bankruptcy Legal Assistant Name Role Phone CHANI RHODES Primary [...] [facility] February 03, 2022 [id number] EMERITA BAUTISTA PATIENT [facility] MEDICAID MEDICAID MEDIC AID Oct 06, 2013 MEDICAI D [id number] EMERITA BAUTISTA PATIENT MEDICARE (WNR) MEDICARE (M) PART A Mar 06, 2015 PART A [id number] EMERITA BAUTISTA PATIENT MEDICARE (WNR) MEDICARE (M) PART B Mar 06, 2015 PART B [id number] [phone] EMERITA BAUTISTA PATIENT MEDICARE (WNR) MEDICARE (M) PART B Mar 06, 2015 PART B [id number] [phone] EMERITA BAUTISTA PATIENT MEDICARE (WNR) MEDICARE (M) PART A Mar 06, 2015 PART A [id number] [phone] EMERITA BAUTISTA PATIENT MEDICARE (WNR) MEDICARE (M) PART B Mar 06, 2015 PART B [id number] [phone] EMERITA BAUTISTA PATIENT MEDICARE (WNR) MEDICARE (M) PART B Mar 06, 2015 PART B [id number] EMERIAT BAUTISTA PATIENT MEDICARE (WNR) MEDICARE (M) PART A Mar 06, 2015 PART A [id number] EMERITA BAUTISTA PATIENT Selected Encounter This section includes the information on record at [place] for the Encounter. Date/Time Encounter Type Encounter Description Reason Pro vider Source Jun 10, 2024 10:03 AM Outpatient Encounter PRIMARY CARE/MEDICINE IHE Encounter Template Text not used by [place] Plan of Treatment: Future Appointments (+ 6 months) and Future Tests (+/- 45 days) The Plan of Treatment section includes future care activities for the patient from all [place] treatmentfacil[facility] hospital. This section includes future appointments and future orders which are active, pending or scheduled. Future Appointments This section includes appointments that were scheduled to occur 6 months from the date of the Encounter, up to a maximum of 20 appointments. The data comes from all [place] treatment facilities. Appointment Date/Time Appointment Type Appointme nt Facility Name Jun 23, 2024 08:00 AM [facility] Jun 28, 2024 07:30 AM [facility] Jul 01, 2024 02:45 PM AMBULATORY - MEDICINE [facility] MIR SMITH [facility] Jul 06, 2024 08:00 AM AM[facility]ULATORY - MEDICINE [facility] Jul 13, 2024 10:00 AM [facility] Jul 28, 2024 10:00 AM [facility] Aug 05, 2024 09:30 AM AMBULATORY - MEDICINE [place] [facility] MIR SMITH [facility] Aug 19, 2024 09:00 AM AMBULATORY [facility] MEDICINE [facility] Aug 24, 2024 11:00 AM [facility] Aug [facility], [facility]24 03:00 [facility] Aug 27, 2024 10:00 AM AMBULATORY - MEDICINE [place] [facility] Sep 16, 2024 08:30 AM AMBULATORY - MEDICINE [facility] Sep 23, 2024 03:30 PM AMBULATORY - MEDICINE [place] [facility] Sep 24, 2024 12:00 PM AMBULATORY - MEDICINE [place] [facility] Sep 30, 2024 08:55 AM AMBULATORY - MEDICINE [place] [facility] Oct 15, 2024 08:00 AM AMBULATORY - MEDICINE [facility] Oct 27, 2024 09:30 AM AMBULATORY - MEDICINE [place] [facility] Nov 04, 2024 03:00 PM AMBULATORY - MEDICINE [place] [facility] Nov 18, 2024 09:30 AM AMBULATORY - NONE [facility] Nov 18, 2024 09:30 AM AMBULATORY - [facility] [place] [facility] Active, Pending, and Scheduled Orders This section includes a listing of several types of active, pending, and scheduled orders, including clinic medications orders, diagnostic test orders, procedure orders and consult orders; where the start date of the order is 45 days before the date of the Encounter or 45 days after the date of theEncounter. The data comes from all [place] treatment facilities. 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 The data comes from the [place] facility where the Encounter took place. Date/Time Smoking Status/Tobacco Use Comment F acility Mar 11, 2023 08:30 AM VA-TOBACCO QUIT 15 YRS OR MORE [place] [facility] Dec 27, 2020 02:00 PM VA-TOBACCO FORMER USER [place] [facility] Dec 27, 2020 02:00 PM [place]-TOBACCO QUIT 15 YRS OR MORE [facility] Advance Directives: All historical and [...] Encounter. Date/Time Encounter Note(s) Provider Source Jun 10, 2024 10:03 AM LETTERS: LOCAL TITLE: PATIENT LETTER (B) STANDARD TITLE: LETTERS DATE OF NOTE: JUN 10, 2024@10:03 ENTRY DATE: JUN 10, 2024@10:03:29 AUTHOR: GRACIELA CASSIDY EXP COSIGNER: URGENCY: STATUS: COMPLETED EMERITA Calvin [address] [address] Date: JUN 10, 2024 Dear Hiram: Our goal at the [facility] is to provide you with quality medical care. This is a reminder of your appointment scheduled with our Clinical Pharmacist, Miladis Rivers on: Appointment Date: Jul @ 09:30 Appointment Type: In-person visit If you have any further questions or would like more information regarding [place] health care benefits, please call toll free at [phone]),visit the [place] website at [email or web address], or contact your local [place] Medical Center. Below please find a listing of ALL of your upcoming appointments. Thank you for your service to our nation, and we look forward to hearing from you soon. Sincerely, GRACIELA CASSIDY - ADVANCE STRAND BUNCHER FINE WIRE Office Staff for: Miladis Rivers - Clinical Pharmacist [facility] [address] [place] [id number] T [phone] F [phone] Upcoming Appointments: 06/23/2024 08:00 CWM/SO/PHYSICAL THERAPY C 07/01/2024 14:45 COM CARE-RETINAL SPEC 07/06/2024 15:00 CWM/NO/PAIN MD CLINIC 08/05/2024 09:30 CWM/SO/PHARM/PACT 2 09/13/2024 11:00 CWM/SO/PACT EIGHT 05/03/2025 10:00 NHM/OPTOMETRY/WELSH/ APPOINTMENT ABBREVIATION AGUERO (SPOPC OR SO = [place], [facility]) (GOPC OR GO = [place], [address] [facility]) ([facility] = [facility]) ([facility] - Video Call) (Tel-X Telephone Visit) (TH - Telehealth) GRACIELA CASSIDY
--- OUTSIDE RECORDS SUMMARY | 2024-09-30 08:43 | XMS_ITS | Encounter Summary ---
Author Name [facility] [facility] [place] [facility] [place] [facility] [place] Address [address] [place] [address] Care Team Providers Care Machine Stitcher Name Role Phone CHANI RHODES Primary Care [...] to Policy Zayas [employer]ANCE [facility] February 03, 2022 [id number] EMERITA BAUTISTA PATIENT [facility] MEDICAID MEDICAID MEDIC AID Oct 06, 2013 MEDICAI D [id number] EMERITA BAUTISTA PATIENT MEDICARE (WNR) MEDICARE (M) PART A Mar 06, 2015 PART A [id number] EMERITA BAUTISTA PATIENT MEDICARE (WNR) MEDICARE (M) PART B Mar 06, 2015 PART B [id number] [phone] EMERITA BAUTISTA PATIENT MEDICARE (WNR) MEDICARE (M) PART B Mar 06, 2015 PART B [id number] [phone] EMERITA BAUTISTA PATIENT MEDICARE (WNR) MEDICARE (M) PART A Mar 06, 2015 PART A [id number] [phone] EMERITA BAUTISTA PATIENT MEDICARE (WNR) MEDICARE (M) PART B Mar 06, 2015 PART B [id number] EMERITA BAUTISTA PATIENT MEDICARE (WNR) MEDICARE (M) PART A Mar 06, 2015 PART A [id number] EMERITA BAUTISTA PATIENT MEDICARE (WNR) MEDICARE (M) PART B Mar 06, 2015 PART B [id number] EMERITA BAUTISTA PATIENT Selected Encounter This section includes the information on record at [place] for the Encounter. Date/Time Encounter Type Encounter Description Reason Provider Source Jun 10, 2024 09:30 AM MTMS BY PHARM MARY 15 MIN CLINICAL PHARMACY ICD-10-CM E11.9 Type 2 diabetes mellitus without complications SANJEEV ARAGON [facility] Encounter Template Text not used by [place] Assessments - Encounter Diagnoses This section includes the primary and secondary diagnoses documented for the Encounter. Date/Time Primary/Secondary Diagnosis Diagnosis Name Provider Source Jun 10, 2024 10:10 AM PRIMARY Type 2 diabetes mellitus without complications SANJEEV ARAGON [place] Plan of Treatment: Future Appointments (+ 6 months) and Future Tests (+/- 45 days) The Plan of Treatment section includes future care activities for the patient from all [place] treatmentfacilities. This section includes future appointments and future orders which are active, pending or scheduled. Future Appointments This section includes appointments that were scheduled to occur 6 months from the date of the Encounter, up to a maximum of 20 appointments. The data comes from all [place] treatment facilities. Appointment Date/Time Appointment Type Appointme nt Facility Name Jun 23, 2024 08:00 AM AMBULATORY - [facility]AB [facility] Jun 28, 2024 07:30 [facility] Jul 01, 2024 02:45 PM AMBULATORY - MEDICINE [place] [facility] Jul 06, 2024 08:00 AM AMBULATORY - MEDICINE [facility] Jul 13, 2024 10:00 [facility] Jul 28, 2024 10:00 AM AMBULATORY - REHAB MEDICIN [facility] Aug 05, 2024 09:30 AM AMBULATORY - MEDICINE [place] [facility] Aug 19, 2024 09:00 AM AM[facility]ULATORY - MEDICINE [facility] Aug 24, 2024 11:00 AM AMBULATORY - PSYCHIATRY [place] [facility] Aug 24, 2024 03:00 PM AMBULATORY - REHAB MEDICIN E [place] Aug 27, 2024 10:00 AM AMBULATORY - MEDICINE [place] [facility] Sep 16, 2024 08:30 AM AMBULATORY - MEDICINE [facility] Sep 23, 2024 03:30 PM AMBULATORY - MEDICINE [place] [facility] Sep 24, 2024 12:00 PM AMBULATORY - MEDICINE [place] [facility] Sep 30, 2024 08:55 AM AMBULATORY - MEDICINE [place] [facility] Oct 15, 2024 08:00 AM AMBULATORY - MEDICINE [facility] Oct 27, 2024 09:30 AM AMBULATORY - MEDICINE [place] [facility] Nov 04, 2024 03:00 PM AMBULATORY - MEDICINE [place] [facility] Nov 18, 2024 09:30 AM AMBULATORY - NONE [facility] Nov 18, 2024 09:30 AM AMBULATORY - [place]ICINE [place] [facility] Active, Pending, and Scheduled Orders This section includes a listing of several types of active, pending, and scheduled orders, including clinic medications orders, diagnostic test orders, procedure orders and consult orders; where the start date of the order is 45 days before the date of the Encounter or 45 days after the date of theEncounter. The data comes from all [place] treatment facilities. Test Date/Time Test Type Test Details Facility Name Jul 14, 2024 04:18 PM Consult Order [facility] PS[facility]CHOTHERAPY Cons Financial Institution Treasurer's Choice [place] Social History: Smoking Status (Most current) and Tobacco Use (All prior to encounter date) This section includes the most current, and the historical, smoking and tobacco- related health factors from the [place] facility where the Encounter took place. Current Smoking Status This section includes the most current smoking, or tobacco-related health factor, from the [place] facility where the Encounter took place. Date/Time Current Smoking Status Comment Ana bianchi Mar 08, 2024 09:00 AM VA-TOBACCO FORMER USER [place] Tobacco Use History This section includes a history of the smoking, or tobacco-related health factors, that were collected on or before the date of the Encounter. The data comes from the [place] facility where the Encounter took place. Date/Time Smoking Status/Tobacco Use Comment F acility Mar 08, 2024 09:00 AM VA-TOBACCO QUIT 15 YRS OR MORE [facility] Mar 27, 2022 09:30 AM VA-TOBACCO FORMER USER [facility] Mar 27, 2022 09:30 AM VA-TOBACCO QUIT 15 YRS OR MORE [place] Dec 22, 2018 10:29 AM VA-TOBACCO FORMER USER [facility] Dec 22, 2018 10:29 AM VA-TOBACCO QUIT 15 YRS OR MORE [facility] Mar 19, 2018 11:33 AM VA-TOBACCO FORMER USER [facility] Mar 19, 2018 11:33 AM VA-TOBACCO QUIT 15 YRS OR MORE [place] May 13, 2017 01:22 PM QUIT TOBACCO USE > 7 YEARS AGO quit 24 yrs ago [facility] Nov 15, 2015 09:48 AM QUIT TOBACCO USE > 7 YEARS AGO States he last smoked 21 years ago [facility] Dec 07, 2009 02:51 PM QUIT TOBACCO USE > 7 YEARS AGO [facility] Advance Directives: All historical and current Section Date Range: From patient's date of to the date document was created. This section includes ALL of a patient's completed or amended [place] Advance and Rescinded Directives. The entries below indicate that a directive exists for the patient, but an actual copy is not included with this document. The data comes from all [facility]. Date Advance Directives Provider Source May 23, 2011 ADVANCE DIRECTIVE JUD BROOKS Encounter Notes: All associated encounter notes This section contains the clinical notes associated to the Encounter. Date/Time Encounter Note(s) Provider Source Jun 10, 2024 10:11 AM DIABETOLOGY NOTE: LOCAL TITLE: INSULIN PUMP/CGM DOWNLOAD (T) STANDARD TITLE: DIABETOLOGY NOTE DATE OF NOTE: JUN 10, 2024@10:11 ENTRY DATE: JUN 10, 2024@10:11:28 AUTHOR: SANJEEV ARAGON EXP COSIGNER: URGENCY: STATUS: COMPLETED Please select: Personal Continuous Glucose Monitor Date of Documentation:Jun Please see attached scanned document in [facility]. /lora/ Torie SantiagoD, BCPS Clinical Pharmacist Practitioner (PACT) Signed: 06/10/2024 10:11 SANJEEV ARAGON [place] Jun 10, 2024 09:29 AM PHARMACY OUTPATIEN T NOTE: LOCAL TITLE: PHARMACY CLINIC NOTE STANDARD TITLE: PHARMACY OUTPATIENT NOTE DATE OF NOTE: JUN 10, 2024@09:29 ENTRY DATE: JUN 10, 2024@09:29:12 AUTHOR: SANJEEV ARAGON EXP COSIGNER: URGENCY: STATUS: COMPLETED Briefly, EMERITA BAUTISTA is a 58 year old BLACK OR MALE Moriah [facility] for comprehensive medication management. Patient's identity was confirmed using at least two indicators. Subjective: Moriah states he is doing okay, recently lost his job. He reports he is doing well with Ozempic, requests refill. He also states he needs a renewal of glucose tabs, but has not had to use them recently. He has a few questions about storing insulin. CURRENT DIABETES MEDICATIONS: - Empagliflozin 25mg once daily - Insulin aspart 25 units TID - Insulin glargine-yfgn 46 units BID - Metformin 750mg SA once daily - Semaglutide 0.5mg once weekly Medication Adherence: Misses doses occasionally - once or twice a month Tobacco: None Alcohol: None Marijuana/Illicit Drugs: None Typical Diet: breakfast: grapefruit; pt is in a lot [...] foods Exercise: knee pain is current limitation SMBG: Date: 10/17/23 Dexcom G7 14 day average: [...] 0% VERY LOW sensor usage: 93% Date: 06/10/24 Dexcom G7 14 day avgt: 182 mg/dl; 7% VERY HIGH 37% HIGH 56% IN RANGE 0% LOW 0% VERY LOW sensor usage: 86% Hypoglycemia: Objectives: Vitals SVSO - Vital Select Outpat. Measurement DT TEMP RESP PULSE POx BP F(C) (L/MIN)(%) 04/19/2024 15:04 90 94 125/79 Labs: HEMOGLOBIN A1C TREND Collection DT Spec HGBA1c 03/08/2024 09:42 BLOOD 7.4 H 11/27/2023 10:26 BLOOD 8.2 H 05/07/2023 14:35 BLOOD 7.2 H 09/23/2022 09:57 BLOOD 8.0 H 03/14/2022 11:36 BLOOD 7.3 H BMP (NONFASTING) Collection DT Specimen Test Name Result Units Ref Range 03/08/2024 09:42 SERUM UREA NITROGEN 14 mg/dL 03/08/2024 09:42 SERUM GLUCOSE 230 H mg/dL 65 - 100 03/08/2024 09:42 SERUM SODIUM 139 mmol/L 135 - 145 03/08/2024 09:42 SERUM POTASSIUM 4.2 mmol/L 3.5 - 5.0 03/08/2024 09:42 SERUM CHLORIDE 108 mmol/L 100 - 110 03/08/2024 09:42 SERUM CO2 22 mEq/L 20 - 30 03/08/2024 09:42 SERUM CREATININE, Serum 1.22 mg/dL 0.50 - 1.40 03/08/2024 09:42 SERUM eGFR(CKD-EPI 2020 68 mL/min Ref: >=60 CBC TREND Collection DT Spec WBC RBC [...] 5.47 16.6 48.4 88.5 30.3 124 L LIVER PANEL TREND Collection DT Spec AST ALT T BILI ALK MILANA T. PROT ALBUMIN 03/08/2024 09:42 SERUM 26 46 1.2 90 7.7 4.3 11/25/2023 09:22 SERUM 27 54 0.8 91 7.6 3.9 05/07/2023 14:35 SERUM 32 52 1.3 H 89 7.9 4.3 11/06/2022 14:26 SERUM 24 46 1.2 84 7.7 3.9 09/23/2022 09:57 SERUM 28 42 1.2 83 8.0 4.0 LIPID PANEL TREND Collection DT Spec CHOL [...] (25-OH) <13 L ng/mL 20 - 50 Collection DT Specimen Test Name Result Units Ref Range 11/25/2023 09:22 URINE mALB/Cr 28.1 mg/G 0 - 29.9 Collection DT Spec B12 SR- 11/25/2023 09:22 SERUM 815 Medications: Active and Recently Outpatient Medications (including Supplies): Active Outpatient Medications Status ======= 1) ACETAMINOPHEN 500MG TAB TAKE TWO TABLETS [...] MOUTH ONCE DAILY FOR VITAMIN SUPPLEMENTATION 6) EMPAGLIFLOZIN 25MG TAB TAKE ONE TABLET BY MOUTH ONCE ACTIVE DAILY 7) GLUCOSE SENSOR DEXCOM G7 USE 1 SENSOR DIRECTED ACTIVE EVERY 10 DAYS 8) HYDROCODONE 5MG/ACETAMINOPHEN 325MG TAB TAKE 1 TABLET ACTIVE BY MOUTH TWICE DAILY FOR PAIN 9) INSULIN,ASPART(EQV-NOVLG)100UN/ML FLXPEN INJECT 25 ACTIVE UNITS SUBCUTANEOUSLY THREE [...] 2 DIABETES MELLITUS Inactive Outpatient Medications Status ======= 1) DICLOFENAC NA 1% TOP GEL APPLY 4 GRAMS TOPICALLY TWICE DAILY NEEDED FOR OSTEOARTHRITIS - USE DOSING CARD PROVIDED IN BOX 15 Total Medications Remote Medications: No Active Remote Medications for this patient Allergy Assessment: Patient has answered NKA Assessment: DIABETES Diabetes control is not at goal. Glycemic control is improved since restarting semaglutide and titration of insulin. Tolerating semaglutide well. Will titrate mealtime insulin today. Providing glucose tablets, though he has not needed them recently. 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 Plan: -Increase insulin aspart to 25 units TID AC -Renew glucose tabs -Medications reconciled -Otherwise continue current medications EDUCATION -A shared decision-making approach was used in the development of this plan, involving the , clinician, and any caregivers present. The was provided the opportunity express questions or concerns, and the plan was adjusted as needed to address these concerns. -Reviewed with Moriah any new medications, changes to the medication list, education, and plan from today's visit. Patient (and/or caregiver) verbalized understanding of the plan, including possible known risks and benefits, and had no additional questions. RTC: 2 months Time spent with patient: 30 minutes PharmD tool: MARSHA [employer] Pharmacotherapy Rem V12: PHARMACIST INTERVENTIONS: TYPE 2 DIABETES MELLITUS Medication Intervention(s) Adjust dose or frequency of current medication due to other reason Medication reconciliation (changes to active VA and non-VA medication lists to reconcile differences) No changes to medication lists made (medication review completed, no discrepancies identified) /es/ Sanjeev Aragon PharmD, BCPS Clinical Pharmacist Practitioner (PACT) Signed: 06/10/2024 10:11 SANJEEV ARAGON [place]
--- OUTSIDE RECORDS SUMMARY | 2024-09-30 08:43 | XMS_ITS | Encounter Summary ---
Author Name [facility] [place] Address [address] [place] [address] Care Team Providers Care Director Of Sales Support Name Role Phone CHANI RHODES Primary Care [...] [facility] February 03, 2022 [id number] EMERITA BAUTISTA PATIENT [facility] MEDICAID MEDICAID MEDIC AID Oct 06, 2013 MEDICAI D [id number] EMERITA BAUTISTA PATIENT MEDICARE (WNR) MEDICARE (M) PART A Mar 06, 2015 PART A [id number] EMERITA BAUTISTA PATIENT MEDICARE (WNR) MEDICARE (M) PART B Mar 06, 2015 PART B [id number] [phone] EMERITA BAUTISTA PATIENT MEDICARE (WNR) MEDICARE (M) PART B Mar 06, 2015 PART B [id number] EMERITA BAUTISTA PATIENT MEDICARE (WNR) MEDICARE (M) PART A Mar 06, 2015 PART A [id number] EMERITA BAUTISTA PATIENT MEDICARE (WNR) MEDICARE (M) PART B Mar 06, 2015 PART B [id number] EMERITA BAUTISTA PATIENT MEDICARE (WNR) MEDICARE (M) PART B Mar 06, 2015 PART B [id number] EMERITA BAUTISTA PATIENT MEDICARE (WNR) MEDICARE (M) PART A Mar 06, 2015 PART A [id number] EMERITA BAUTISTA PATIENT Selected Encounter This section includes the information on record at [place] for the Encounter. Date/Time Encounter Type Encounter Description Reason Provider Source Jul 06, 2024 08:00 AM OFF/OP EST FEBRUARY X REQ PHY/QHP PRIMARY CARE/MEDICINE ICD-10-CM G50.1 Atypical facial pain BIANCA COELLO Behzad Encounter Template Text not used by [place] Assessments - Encounter Diagnoses This section includes the primary and secondary diagnoses documented for the Encounter. Date/Time Primary/Secondary Diagnosis Diagnosis Name Provider Source Jul 06, 2024 10:12 AM PRIMARY Atypical facial pain BIANCA COELLO NILS Plan of Treatment: Future Appointments (+ 6 months) and Future Tests (+/- 45 days) The Plan of Treatment section includes future care activities for the patient from all [place] treatmentfacilities. This section includes future appointments and future orders which are active, pending or scheduled. Future Appointments This section includes appointments that were scheduled to occur 6 months from the date of the Encounter, up to a maximum of 20 appointments. The data comes from all [place] treatment facilities. Appointment Date/Time Appointment Type Appointme nt Facility Name Jul 13, 2024 10:00 AM AMBULATORY - REHAB [facility] Jul 28, 2024 10:00 AM AMBULATORY - REHAB [facility] Aug 05, 2024 09:30 AM AMBULATORY - MEDICINE [place] C NTRL [facility] Aug 19, 2024 09:00 AM AMBULATORY - MEDICINE [facility] Aug 24, 2024 11:00 AM AMBULATORY - PSYCHIATRY [place] [facility] Aug 24, 2024 03:00 [facility], 2024 10:00 AM AMBULATORY - MEDICINE [place] [facility] Sep 16, 2024 08:30 AM AMBULATORY - MEDICINE [facility] Sep 23, 2024 03:30 PM AMBULATORY - MEDICINE [place] [facility] Sep 24, 2024 12:00 PM AMBULATORY - MEDICINE [place] [facility] Sep 30, 2024 08:55 AM AMBULATORY - MEDICINE [place] [facility] Oct 15, 2024 08:00 AM AMBULATORY - MEDICINE [facility] Oct 27, 2024 09:30 AM AMBULATORY - MEDICINE [place] [facility] Nov 04, 2024 03:00 PM AMBULATORY - MEDICINE [place] [facility] Nov 18, 2024 09:30 AM AMBULATORY - NONE [facility] Nov 18, 2024 09:30 AM AMBULATORY - [place]ICINE [place] [facility] Active, Pending, and Scheduled Orders This section includes a listing of several types of active, pending, and scheduled orders, including clinic medications orders, diagnostic test orders, procedure orders and consult orders; where the start date of the order is 45 days before the date of the Encounter or 45 days after the date of theEncounter. The data comes from all [place] treatment facilities. Test Date/Time Test Type Test Details Facility Name Jul 14, 2024 04:18 PM Consult Order [facility] PSYCHOTHERAPY Cons Linen Keeper's Choice [place] Vital Signs: All taken on the encounter date This section contains inpatient and outpatient Vital Signs collected on the date of the Encounter. Date/Time Temperature Pulse Blood Pressure Respiratory Rate SP02 Pain Height Weight Body Mass Index Source Jul 06, 2024 08:48 AM 98.1 65 170/98 20 07 10 [facility] [place] Social History: Smoking Status (Most current) and Tobacco Use (All prior to encounter date) This section includes the most current, and the historical, smoking and tobacco- related health factors from the [place] facility where the Encounter took place. Current Smoking Status This section includes the most current smoking, or tobacco-related health factor, from the [place] facility where the Encounter took place. Date/Time Current Smoking Status Comment Ana bianchi Mar 08, 2024 09:00 AM VA-TOBACCO FORMER USER [place] Tobacco Use History This section includes a history of the smoking, or tobacco-related health factors, that were collected on or before the date of the Encounter. The data comes from the [place] facility where the Encounter took place. Date/Time Smoking Status/Tobacco Use Comment F acility Mar 08, 2024 09:00 AM VA-TOBACCO QUIT 15 YRS OR MORE [place] Mar 27, 2022 09:30 AM VA-TOBACCO FORMER USER [place] Mar 27, 2022 09:30 AM VA-TOBACCO QUIT 15 YRS OR MORE [place] Dec 22, 2018 10:29 AM VA-TOBACCO FORMER USER [place] Dec 22, 2018 10:29 AM VA-TOBACCO QUIT 15 YRS OR MORE [place] Mar 19, 2018 11:33 AM VA-TOBACCO FORMER USER [place] Mar 19, 2018 11:33 AM VA-TOBACCO QUIT 15 YRS OR MORE [place] May 13, 2017 01:22 PM QUIT TOBACCO USE > 7 YEARS AGO quit 24 yrs ago [place] Nov 15, 2015 09:48 AM QUIT TOBACCO USE > 7 YEARS AGO States he last smoked 21 years ago [place] Dec 07, 2009 02:51 PM QUIT TOBACCO USE > 7 YEARS AGO [place] Advance Directives: All historical and current Section Date Range: From patient's date of to the date document was created. This section includes ALL of a patient's completed or amended [place] Advance and Rescinded Directives. The entries below indicate that a directive exists for the patient, but an actual copy is not included with this document. The data comes from all [facility]. Date Advance Directives Provider Source May 23, 2011 ADVANCE DIRECTIVE JUD BROOKS Encounter Notes: All associated encounter notes This section contains the clinical notes associated to the Encounter. Date/Time Encounter Note(s) Provider Source Jul 06, 2024 08:50 AM PRIMARY CARE NOTE: LOCAL TITLE: WALK-IN NOTE PRIMARY CARE (T) STANDARD TITLE: PRIMARY CARE NOTE DATE OF NOTE: JUL 06, 2024@08:50 ENTRY DATE: JUL 06, 2024@08:50:28 AUTHOR: BIANCA COELLO COSIGNER: URGENCY: STATUS: COMPLETED Data: 58year old MALE reports to Primary Care clinic for Walk-In visit. Nazlini's PCP is VENKATA MARES Today Vet walks in to clinic with complaint of right facial pain x 24 hours Last recorded Vital Signs are: Temperature:98.1 F [36.7 C] (07/06/2024 08:48) Pulse:65 (07/06/2024 08:48) Blood Pressure:170/98 (07/06/2024 08:48) Respiration:20 (07/06/2024 08:48) Pain:10 (07/06/2024 08:48) Vet reports current allergies are: Remote Allergy [...] BY MOUTH ONCE ACTIVE DAILY 7) GLUCOSE 4GM CHEW TAB CHEW FOUR TABLETS BY MOUTH ACTIVE NEEDED FOR LOW BLOOD SUGAR 8) GLUCOSE SENSOR DEXCOM G7 USE 1 SENSOR DIRECTED ACTIVE EVERY 10 DAYS 9) INSULIN,ASPART(EQV-NOVLG)100UN/ML FLXPEN INJECT 27 ACTIVE UNITS [...] WEEK FOR TYPE 2 DIABETES MELLITUS Action: Nazlini reports to sick call reporting starting yesterday morning his right side of his face was sore. States as the day progressed the pain became severe. Reports he was not able to sleep last night due to the pain. 10/10 Pain originates at the right cheek and radiated to lower jaw. Area tender mild swelling noted Upon visual inspection of mouth, there was no redness or drainage at the upper gums Nazlini states he tried to use Tylenol last night with no effect BP manual 170/98. States he did not take his am medications yet. Advised to go to urgent care for evaluation. Advised to take BP medications as soon as he can. given a list of low cost dental providers in the area in the event urgetn care states he needs to see dental. agrees to go to urgent care. Reminders Info Only: [facility] Video Connect Capable DUE NOW Advance Directive Screen MH AD Jul 28 Pneumococcal Conjugate Vaccine (PCV15/PCDUE NOW Influenza Immunization DUE NOW Medication Reconciliation DUE NOW Td / Tdap Immunization May 09 HTN Assess for Elevated BP>=140/90 DUE NOW Opioid Drug Screening V2 DUE NOW Sexual Orientation May 21 PAVE Foot Check Jul 28 (Optional) Whole Health Documentation DUE NOW /lora/ BIANCA COELLO RN PRIMARY CARE RN Signed: 07/06/2024 10:12 BIANCA COELLO [place]
--- OUTSIDE RECORDS SUMMARY | 2024-09-30 08:43 | XMS_ITS | Encounter Summary ---
Author Name [facility] [facility] [place] [facility] [place] Address [address] [place] [address] Care Team Providers Care Retail Supervisor Name Role Phone CHANI RHODES Primary [...] [facility] February 03, 2022 [id number] [phone] EMERITA BAUTISTA PATIENT [facility] MEDICAID MEDICAID MEDIC AID Oct 06, 2013 MEDICAI D [id number] EMERITA BAUTISTA PATIENT MEDICARE (WNR) MEDICARE (M) PART A Mar 06, 2015 PART A [id number] EMERITA BAUTISTA PATIENT MEDICARE (WNR) MEDICARE (M) PART B Mar 06, 2015 PART B [id number] EMERITA BAUTISTA PATIENT MEDICARE (WNR) MEDICARE (M) PART B Mar 06, 2015 PART B [id number] EMERITA BAUTISTA PATIENT MEDICARE (WNR) MEDICARE (M) PART A Mar 06, 2015 PART A [id number] [phone] EMERITA BAUTISTA PATIENT MEDICARE (WNR) MEDICARE (M) PART B Mar 06, 2015 PART B [id number] EMERITA BAUTISTA PATIENT MEDICARE (WNR) MEDICARE (M) PART B Mar 06, 2015 PART B [id number] [phone] EMERITA BAUTISTA PATIENT MEDICARE (WNR) MEDICARE (M) PART A Mar 06, 2015 PART A [id number] EMERITA BAUTISTA PATIENT Selected Encounter This section includes the information on record at [place] for the Encounter. Date/Time Encounter Type Encounter Description Reason Pro vider Source May 21, 2024 10:31 AM Outpatient Encounter EVENT (HISTORICAL) IHE Encounter Template Text not used by [place] Plan of Treatment: Future Appointments (+ 6 months) and Future Tests (+/- 45 days) The Plan of Treatment section includes [facility] care [facility] the [facility] [place] [facility] This section includes future appointments [...] AM[place]ULATORY [place] [facility] Jun 23, 2024 08:00 [facility], [facility]24 07:30 AM [facility]ULAT[facility] - RE[facility]AB MEDICIN [facility] Jul 01, 2024 02:45 PM AMBULATORY - MEDICINE [place] [facility] Jul 06, 2024 08:00 AM AMBULATORY - MEDICINE [facility] Jul 13, 2024 10:00 [facility] 28, 2024 10:00 [facility] Aug 05, 2024 09:30 AM AMBULATORY - [place]ICINE [place] [facility] Aug 19, 2024 09:00 AM AMBULATORY - MEDICINE [facility] Aug 24, 2024 11:00 AM AMBULATORY - PSYCHIATRY [place] [facility] Aug 24, 2024 03:00 PM AMBULATORY - RE[facility]AB MEDICIN [place] Aug 27, 2024 10:00 AM AMBULATORY - MEDICINE [place] [facility] Sep 16, 2024 08:30 AM AMBULATORY - MEDICINE [facility] Sep 23, 2024 03:30 PM AMBULATORY - MEDICINE [place] [facility] Sep 24, 2024 12:00 PM AMBULATORY - MEDICINE [place] [facility] Sep 30, 2024 08:55 AM AMBULATORY - MEDICINE [place] [facility] Oct 15, 2024 08:00 AM AMBULATORY - MEDICINE [facility] Oct 27, 2024 09:30 AM AMBULATORY - MEDICINE [place] [facility] Nov 04, 2024 03:00 PM AMBULATORY - MEDICINE [place] [facility] Nov 18, 2024 09:30 AM AMBULATORY - NONE [place] Social History: Smoking Status (Most current) and [...] AM [facility]BACCO [facility]IT [facility]RS [facility] Tobacco Use History This section includes a history of the smoking, or tobacco-related health factors, that were collected on or before the date of the Encounter. The data comes from the [place] facility where the Encounter took place. Date/Time Smoking Status/Tobacco Use Comment F acility Mar 11, 2023 08:30 AM VA-TOBACCO QUIT 15 YRS OR MORE [place] [facility] Dec 27, 2020 02:00 PM VA-TOBACCO FORMER USER [place] [facility] Dec 27, 2020 02:00 PM VA-TOBACCO QUIT 15 YRS OR MORE [facility] Advance Directives: All historical and current [...] KNEE 3 VIEWS (RIGH T): EMERITA BAUTISTA [id number] -[id number] M Ex Date: APR 27, 2024@08:46 Req Phys: VENKATA MARES Pat Loc: CWM/SO/PACT EIGHT WH (Req'g Lo Img Loc: [facility]/BUILDING 1 Service: Unknown [place] [facility] , (Case 62 COMPLETE) KNEE 1 OR 2 VIEWS (RIGHT) (RAD Detailed) CPT:56138 Proc Modifiers : BILATERAL EXAM Reason for Study: chronic pain (Case 63 COMPLETE) KNEES BILATERAL STANDING (RAD Detailed) CPT:87246 (Case 64 COMPLETE) KNEE 1 OR 2 VIEWS (LEFT) (RAD Detailed) CPT:04790 Proc Modifiers : BILATERAL EXAM Clinical History: Report Status: Verified Date Reported: APR 27, 2024 Date Verified: APR 27, 2024 Ice Carver E-Sig:/ES/TERESA BLOUNT JR Report: Study: AP weight-bearing [...] Primary Interpreting Staff: TERESA BLOUNT JR, Radiologist (Ice Carver) /TERESA AGUILAR JR [facility]
--- OUTSIDE RECORDS SUMMARY | 2024-09-30 08:44 | XMS_ITS | Encounter Summary ---
Author Name [facility] [place] [facility] [place] Address [address] [place] [address] Care Team Providers Care Physician Asst Name Role Phone CHANI RHODES Primary Care [...] [facility] February 03, 2022 [id number] [phone] EMERITA BAUTISTA PATIENT [facility] MEDICAID MEDICAID MEDIC AID Oct 06, 2013 MEDICAI D [id number] EMERITA BAUTISTA PATIENT MEDICARE (WNR) MEDICARE (M) PART A Mar 06, 2015 PART A [id number] EMERITA BAUTISTA PATIENT MEDICARE (WNR) MEDICARE (M) PART B Mar 06, 2015 PART B [id number] [phone] EMERITA BAUTISTA PATIENT MEDICARE (WNR) MEDICARE (M) PART B Mar 06, 2015 PART B [id number] [phone] EMERITA BAUTISTA PATIENT MEDICARE (WNR) MEDICARE (M) PART A Mar 06, 2015 PART A [id number] EMERITA BAUTISTA PATIENT MEDICARE (WNR) MEDICARE (M) PART B Mar 06, 2015 PART B [id number] EMERITA BAUTISTA PATIENT MEDICARE (WNR) MEDICARE (M) PART B Mar 06, 2015 PART B [id number] EMERITA BAUTISTA PATIENT MEDICARE (WNR) MEDICARE (M) PART A Mar 06, 2015 PART A [id number] EMERITA BAUTISTA PATIENT Selected Encounter This section includes the information on record at [place] for the Encounter. Date/Time Encounter Type Encounter Description Reason Pro vider Source Aug 05, 2024 10:22 AM Outpatient Encounter PRIMARY CARE/MEDICINE IHE Encounter Template Text not used by [place] Plan of Treatment: Future Appointments (+ 6 months) and Future Tests (+/- 45 days) The Plan of Treatment section includes future care activities for the patient from all [place] [facility]. This section includes future appointments and future orders which are active, pending or scheduled. Future Appointments This section includes appointments that were scheduled to occur 6 months from the date of the Encounter, up to a maximum of 20 appointments. The data comes from all [place] treatment facilities. Appointment Date/Time Appointment Type Appointme nt Facility Name Aug 19, 2024 09:00 AM AMBULATORY - MEDICINE [facility] Aug 24, 2024 11:00 AM AMBULATORY - PSYCHIATRY [place] [facility] Aug 24, 2024 03:00 PM AMBULATORY - REHAB MEDICIN [place] Aug 27, 2024 10:00 AM AMBULATORY - MEDICINE [place] [facility] Sep 16, 2024 08:30 AM AMBULATORY - MEDICINE [facility] Sep 23, 2024 03:30 PM AMBULATORY - MEDICINE [place] [facility] Sep 24, 2024 12:00 PM AMBULATORY - MEDICINE [place] [facility] Sep 30, 2024 08:55 AM AMBULATORY - MEDICINE [place] [facility] Oct 15, 2024 08:00 AM AMBULATORY - MEDICINE [facility] Oct 27, 2024 09:30 AM AMBULATORY - MEDICINE [place] [facility] Nov 04, 2024 03:00 PM AMBULATORY - MEDICINE [place] [facility] Nov 18, 2024 09:30 AM AMBULATORY - NONE [place] Nov 18, 2024 09:30 AM AM[place]UL[place]ORY - [place]IC[place] [facility] Jan 20, 2025 10:00 AM AMBULATORY - MEDICINE [place] Active, Pending, and Scheduled Orders This section includes a listing of several types of active, pending, and scheduled orders, including clinic medications orders, diagnostic test orders, procedure orders and consult orders; where the start date of the order is 45 days before the date of the Encounter or 45 days after the date of theEncounter. The data comes from all [place] treatment facilities. Test Date/Time Test Type Test Details Facility Name Jul 14, 2024 04:18 PM Consult Order COMMUNITY CARE-BH PSYCHOTHERAPY Cons Extract [facility] Aug 25, 2024 01:01 PM Consult Order COMMUNITY CARE-ORTHO GENERAL [facility] Sep 16, 2024 08:39 PM Consult Order HEPATOLOGY SERVICES IFC WHAV Cons Extract [facility] Social History: Smoking Status (Most current) and Tobacco Use (All prior to encounter date) This section includes the most current, and the historical, smoking and tobacco- related health factors from the [place] facility where the Encounter took place. Current Smoking Status This section includes the most current smoking, or tobacco-related health factor, from the [place] facility where the Encounter took place. Date/Time Current Smoking Status Comment Facil ity Mar 11, 2023 08:30 AM [facility] Tobacco Use History This section includes a history of the smoking, or tobacco-related health factors, that were collected on or before the date of the Encounter. The data comes from the [place] facility where the Encounter took place. Date/Time Smoking Status/Tobacco Use Comment F acility Mar 11, 2023 08:30 AM VA-TOBACCO QUIT 15 YRS OR MORE [place] [facility] Dec 27, 2020 02:00 PM VA-TOBACCO FORMER USER [place] [facility] Dec 27, 2020 02:00 PM VA-TOBACCO QUIT 15 YRS OR MORE [facility] Advance Directives: All historical and current Section Date Range: From patient's date of to the date document was created. This section includes ALL of a patient's completed or amended [place] Advance and Rescinded Directives. The entries below indicate that a directive exists for the patient, but an actual copy is not included with this document. The data comes from all [place] facilities. Date Advance Directives Provider Source May 23, 2011 ADVANCE DIRECTIVE JUD BROOKS Encounter Notes: All associated encounter notes This section contains the clinical notes associated to the Encounter. Date/Time Encounter Note(s) Provider Source Aug 05, 2024 10:22 AM PRIMARY CARE NOTE: LOCAL TITLE: WALK-IN NOTE PRIMARY CARE (T) STANDARD TITLE: PRIMARY CARE NOTE DATE OF NOTE: AUG 05, 2024@10:22 ENTRY DATE: AUG 05, 2024@10:22:50 AUTHOR: GIGI MARQUEZ COSIGNER: URGENCY: STATUS: COMPLETED <====Click to Start Advanced Medical Support Ackerman presents to the Primary Care clinic with the following request: [ X ]Medication Renewal/Refill GABAPENTIN [ ]Consultation with Team RN [ ]Symptoms [ X ]Other SLLEP STUDY RESULTS The Ackerman states they are: [ ]Waiting [ X ]Not Waiting No Walk in visit scheduled with PACT Nurse [ X ] At this encounter the 's demographics were verified. [ X ] At this encounter the 's Insurance information was verified. [ X ] At this encounter the below scheduled visits for the Ackerman were discussed and appointment reminder card was offered. Future appointments: 08/24/2024 15:00 CWM/SO/PHYSICAL THERAPY C 08/27/2024 10:00 CWM/NO/PAIN MD CLINIC 09/13/2024 11:00 CWM/SO/PACT EIGHT WH 09/30/2024 09:00 CWM/SO/PHARM/PACT 2 05/03/2025 10:00 NHM/OPTOMETRY/WELSH/ Ackerman was requesting a renewal for gabapentin. Please renew, fill and mail when ready. Also please contact for sleep study results. /lora/ GIGI VARMA Signed: 08/05/2024 10:24 Receipt Acknowledged By: 08/10/2024 10:38 /es/ BHARGAV WELCH, BSN RN-BC REGISTERED NURSE 08/05/2024 13:53 /es/ MANDO COOLEY LPN Licensed Practical Nurse GIGI MARQUEZ
--- OUTSIDE RECORDS SUMMARY | 2024-09-30 08:44 | XMS_ITS | Encounter Summary ---
Author Name [facility] [place] Address [address] [place] [address] Care Team Providers Care Handle Sewer Name Role Phone CHANI RHODES Primary Care [...] [facility] February 03, 2022 [id number] EMERITA BAUTISTA PATIENT [facility] MEDICAID MEDICAID MEDIC AID Oct 06, 2013 MEDICAI D [id number] EMERITA BAUTISTA PATIENT MEDICARE (WNR) MEDICARE (M) PART A Mar 06, 2015 PART A [id number] [phone] EMERITA BAUTISTA PATIENT MEDICARE (WNR) MEDICARE (M) PART B Mar 06, 2015 PART B [id number] EEMRITA BAUTISTA PATIENT MEDICARE (WNR) MEDICARE (M) PART B Mar 06, 2015 PART B [id number] [phone] EMERITA BAUTISTA PATIENT MEDICARE (WNR) MEDICARE (M) PART A Mar 06, 2015 PART A [id number] EMERITA BAUTISTA PATIENT MEDICARE (WNR) MEDICARE (M) PART B Mar 06, 2015 PART B [id number] EMERITA BAUTISTA PATIENT MEDICARE (WNR) MEDICARE (M) PART B Mar 06, 2015 PART B [id number] [phone] EMERITA BAUTISTA PATIENT MEDICARE (WNR) MEDICARE (M) PART A Mar 06, 2015 PART A [id number] EMERITA BAUTISTA PATIENT Selected Encounter This section includes the information on record at [place] for the Encounter. Date/Time Encounter Type Encounter Description Reason Pro vider Source Aug 19, 2024 09:02 AM Outpatient Encounter PRIMARY CARE/MEDICINE IHE Encounter Template Text not used by [place] Plan of Treatment: Future Appointments (+ 6 months) and Future Tests (+/- 45 days) The Plan of Treatment section includes future care activities for the patient from all [place] [facility]. This section includes future appointments and future orders which are active, pending or scheduled. Future Appointments This section includes appointments that were scheduled to occur 6 months from the date of the Encounter, up to a maximum of 20 appointments. The data comes from all [place] treatment facilities. Appointment Date/Time Appointment Type Appointme nt Facility Name Aug 24, 2024 11:00 AM AMBULATORY - PS[place]IATRY [place] [facility] [facility] Aug 24, 2024 03:00 PM [facility] Aug 27, 2024 10:00 AM AMBULATORY - MEDICINE [place] [facility] [place] [facility] Sep 16, 2024 08:30 AM AMBULATORY - MEDICINE [facility] Sep 23, 2024 03:30 PM AMBULATORY - MEDICINE [place] [facility] [facility] Sep 24, 2024 12:00 PM AMBULATORY - MEDICINE [place] [facility] [facility] Sep 30, 2024 08:55 AM AMBULATORY - MEDICINE [place] [facility] [facility] Oct 15, 2024 08:00 AM AMBULATORY - MEDICINE [facility] Oct 27, 2024 09:30 AM AMBULATORY - MEDICINE [place] [facility] [facility] Nov 04, 2024 03:00 PM AMBULATORY - MEDICINE [place] [facility] [place] [facility] Nov 18, 2024 09:30 AM AMBULATORY - NONE [place] Nov 18, 2024 09:30 AM AMBUL[place]ORY - [place]ICINE [place] [facility] Jan 20, 2025 10:00 AM AMBULATORY - [...] of theEncounter. The data comes from all [place] treatment facilities. Test Date/Time Test Type Test Details Facility Name Jul 14, 2024 04:18 PM Consult Order COMMUNITY CARE-BH PSYCHOTHERAPY Cons Consumer Services Consultant's [facility] Aug 25, 2024 01:01 PM Consult Order COMMUNITY CARE-ORTHO GENERAL [facility] Consumer Services Consult[facility] Sep 16, 2024 08:39 PM Consult Order HEPATOLOGY SERVICES [facility] Cons Consumer Services [facility] Sep 21, 2024 12:00 AM Laboratory - Chemistry Order ALCOHOL, ETHYL URINE PANEL URINE (DRUG) SP [facility] [facility] Sep 21, 2024 12:00 AM Laboratory - Chemistry Order AMPHETAMINES SCREEN PANEL URINE (DRUG) SP [facility] [place] [facility] Sep 21, 2024 12:00 AM Laboratory - Chemistry Order FENTANYL SCREEN PANEL URINE (DRUG) SP [facility] [place] [facility] Sep 21, 2024 12:00 AM Laboratory - Chemistry Order BENZODIAZEPINES SCREEN PANEL URINE (DRUG) SP [facility] [place] [facility] Sep 21, 2024 12:00 AM Laboratory - Chemistry Order BUPRENORPHINE SCREEN PANEL URINE (DRUG) SP [facility] [place] [facility] Sep 21, 2024 12:00 AM Laboratory - Chemistry Order CANNABINOIDS SCREEN PANEL URINE (DRUG) SP [facility] [place] [facility] Sep 21, 2024 12:00 AM Laboratory - Chemistry Order COCAINE SCREEN PANEL URINE (DRUG) SP [facility] [place] [facility] Sep 21, 2024 12:00 AM Laboratory - Chemistry Order METHADONE SCREEN URINE SP [facility] [facility] Sep 21, 2024 12:00 AM Laboratory - Chemistry Order OPIATES SCREEN PANEL URINE (DRUG) SP [facility] Sep 21, 2024 12:00 AM Laboratory - Chemistry Order OXYCODONE SCREEN PANEL URINE (DRUG) SP [facility] Lab Results: +/- 30 days [...] Result - Unit Interpretation Reference Range Comment Sep 07, 2024 09:20 AM [facility] TSH Specimen Type: SERUM No comment entered. Ordering Provider: CHANI RHODES Report Released Date/Time: Sep 06, 2024 01:20 PM Reporting Lab: [address] [address] Performing Lab: [address] [address] TSH 1.86 u[IU]/mL 0.35-5.00 Sep 07, 2024 09:20 AM [facility] PSA Specimen Type: SERUM No comment entered. Ordering Provider: CHANI RHODES Report Released Date/Time: Sep 06, 2024 01:20 PM Reporting Lab: [address] [address] Performing Lab: [address] [address] PSA 0.33 ng/mL 0.00-4.00 Sep 07, 2024 09:20 AM [facility] LIPID PANEL FASTING Specimen Type: SERUM Comment: Hemolysis present analysis cannot be performed. Hemolysis present may falsly elevate Potassium Total and Direct Bili, Iron, AST, %Fe. Ordering Provider: CHANI RHODES Report Released Date/Time: Sep 06, 2024 01:20 PM Reporting Lab: [address] [address] Performing Lab: [address] [address] CHOLESTEROL 131 mg/dL TRIGLYCERIDE 219 mg/dL H 0-150 LDL calculated 55 mg/dL 0-129 CHOL/HDL 4.1 HDL CHOLESTEROL 32 mg/dL L 40-60 Sep 07, 2024 09:20 AM [facility] HEMOGLOBIN A1C PANEL Specimen Type: BLOOD Comment: Values obtained from A1C measurements can vary. For atypical A1C assays, a reported value of 7.0 could actually be between 6.72 and 7.28 if measured by a reference method. A reported value of 9.0 could actually be between 8.73 and 9.27. Ref: http://www.ngs p.org/CAPdata. asp Ordering Provider: CHANI RHODES Report Released Date/Time: Sep 06, 2024 01:20 PM Reporting Lab: [address] [address] Performing Lab: [address] [address] HEMOGLOBIN A1C 8.1 H 4.0-5.6 Sep 07, 2024 09:20 AM [facility] LIVER FUNCTION Specimen Type: SERUM Comment: Hemolysis present analysis cannot be performed. Hemolysis present may falsly elevate Potassium Total and Direct Bili, Iron, AST, %Fe. Ordering Provider: CHANI RHODES Report Released Date/Time: Sep 06, 2024 01:20 PM Reporting Lab: [address] [address] Performing Lab: [address] [address] PROTEIN,TOTAL 7.5 g/dL 6.0-8.3 ALBUMIN 3.9 g/dL 3.5-5.0 ALKALINE PHOSPHATASE 80 U/L 40-150 AST 34 U/L 5-34 ALT 56 U/L H BILIRUBIN, TOTAL comment mg/dL 0.2-1.2 BILIRUBIN, DIRECT comment mg/dL 0-0.5 Sep 07, 2024 09:20 AM [facility] BASIC METABOLIC PANEL (fasting) Specime n Type: SERUM Comment: Hemolysis present analysis cannot be performed. Hemolysis present may falsly elevate Potassium Total and Direct Bili, Iron, AST, %Fe. Ordering Provider: CHANI RHODES Report Released Date/Time: Sep 06, 2024 01:20 PM Reporting Lab: [address] [address] Performing Lab: [address] [address] UREA NITROGEN 15 mg/dL 7-25 GLUCOSE 176 mg/dL H 65-100 SODIUM 139 mmol/L 135-145 POTASSIUM 4.4 mmol/L 3.5-5.0 CHLORIDE 104 mmol/L 100-110 CO2 23 meq/L 20-30 CREATININE, Serum 1.15 mg/dL 0.50-1.40 eGFR(CKD-EPI 2020) 73 mL/min >60 Sep 07, 2024 09:20 AM [facility] MICROALBUMIN CREATININE RATIO PANEL Spe cimen Type: URINE No comment entered. Ordering Provider: CHANI RHODES Report Released Date/Time: Sep 06, 2024 01:20 PM Reporting Lab: [address] [address] Performing Lab: [address] [address] MICROALBUMIN/C REATININE RATIO 18.2 mg/g 0-29.9 MICROALBUMIN,Q UANTITATIVE 0.9 mg/dL RR UNAVAIL CREATININE URINE 49.56 mg/dL Sep 07, 2024 09:20 AM [facility] URINALYSIS Specimen Type: URINE Comment: If Glucose = >500 and Ketones are positive, please alert the Physician. Ordering Provider: CHANI RHODES Report Released Date/Time: Sep 06, 2024 01:20 PM Reporting Lab: [address] [address] Performing Lab: [address] [address] UA COLOR Colorless Yellow UA APPEARANCE Clear Clear UA GLUCOSE >1000 mg/dL Negative UA KETONES NEGATIVE mg/dL Negative UA BLOOD NEGATIVE mg/dL Negative UA PROTEIN NEGATIVE mg/dL Negative UA NITRITE NEGATIVE mg/dL Negative UA BILIRUBIN NEGATIVE mg/dL Negative UA SPECIFIC GRAVITY 1.023 H 1.016-1.022 UA pH 6.0 5.0-9.0 UA UROBILINOGEN Normal mg/dL <2.0 UA LEUKOCYTE NEGATIVE Negative Sep 07, 2024 09:20 AM [facility] CBC AND DIFF (AUTO) Specimen Type: BLOOD No comment entered. Ordering Provider: CHANI RHODES Report Released Date/Time: Sep 06, 2024 01:20 PM Reporting Lab: [facility] [address] [facility] [address] Performing Lab: [facility] [address] [facility] [address] WBC 5.45 10*3/uL 4.50-11.00 RBC 5.45 10*6/uL 4.23-5.66 HGB 16.4 g/dL 12.8-17 HCT 48.6 39.2-50.4 MCV 89.2 fL 82-99 MCHC 33.7 g/dL 30.8-35.1 PLT 128 10*3/uL L 140-360 RDW-CV 12.4 12.0-16.0 MONO, ABS 0.57 10*3/uL 0.30-1.10 MCH 30.1 pg 26.2-32.6 NEUT % 48.8 43.7-75.8 LYMPH % 38.3 14.0-42.3 MONO % 10.5 5.1-13.7 EOS % 1.3 0.4-6.8 BASO % 0.4 0.1-2.0 NEUT, ABS 2.66 10*3/uL 2.20-7.60 LYMPH, ABS 2.09 10*3/uL 1.00-3.20 EOS, ABS 0.07 10*3/uL 0.03-0.44 BASO, ABS 0.02 10*3/uL 0.01-0.13 IMMATURE GRAN % 0.7 0.0-0.7 IMMATURE GRAN, ABS 0.04 10*3/uL 0.00-0.06 NRBC % 0.0 0.0-0.0 NRBC, ABS 0.00 10*3/uL 0.00-0.00 Social History: Smoking Status (Most current) and [...] 2023 08:30 AM VA-TOBACCO FORMER USER [facility] Tobacco Use History This section includes a history of the smoking, or tobacco-related health factors, that were collected on or before the date of the Encounter. The data comes from the [place] facility where the Encounter took place. Date/Time Smoking Status/Tobacco Use Comment F acility Mar 11, 2023 08:30 AM VA-TOBACCO QUIT 15 YRS OR MORE [facility] Dec 27, 2020 02:00 PM [facility] Dec 27, 2020 02:00 PM [place]-TOBACCO QUIT 15 YRS OR MORE [facility] Advance Directives: All historical and [...] Encounter. Date/Time Encounter Note(s) Provider Source Aug 19, 2024 09:02 AM PRIMARY CARE NOTE: LOCAL TITLE: WALK-IN NOTE PRIMARY CARE (T) STANDARD TITLE: PRIMARY CARE NOTE DATE OF NOTE: AUG 19, 2024@09:02 ENTRY DATE: AUG 19, 2024@09:02:46 AUTHOR: AIDEE ANTHONY EXP COSIGNER: URGENCY: STATUS: COMPLETED <====Click to Start Advanced Medical Support [place] presents to the Primary Care clinic with the following request: [ ]Medication Renewal/Refill [ ]Consultation with Team RN [ X ]Symptoms [ ]Other The states they are: [ ]Waiting [ X ]Not Waiting No Walk in visit scheduled with PACT Nurse [ X ] At this encounter the 's demographics were verified. [ X ] At this encounter the 's Insurance information was verified. [ X ] At this encounter the below scheduled visits for the [place] were discussed and appointment reminder card was offered. Future appointments: 08/24/2024 15:00 CWM/SO/PHYSICAL THERAPY C 08/27/2024 10:00 CWM/NO/PAIN MD CLINIC 09/30/2024 09:00 CWM/SO/PHARM/PACT 2 05/03/2025 10:00 NHM/OPTOMETRY/[facility]EL[facility]/ sick call for back pain. /es/ AIDEE VARMA Signed: 08/19/2024 09:03 Receipt Acknowledged By: 08/19/2024 09:08 /es/ BIANCA COELLO RN PRIMARY CARE RN 08/19/2024 09:16 /es/ NADINE ALVAREZ, ANTHONY REGISTERED NURSE AIDEE ANTHONY [place]
--- OUTSIDE RECORDS SUMMARY | 2024-09-30 08:44 | XMS_ITS | Encounter Summary ---
Author Name [facility] [place] [facility] [place] Address [address] [place] [address] Care Team Providers Care Arbor Press Operator Name Role Phone CHANI RHODES Primary [...] to Policy [employer]ANCE [facility] February 03, 2022 [id number] EMERITA BAUTISTA PATIENT [facility] MEDICAID MEDICAID MEDIC AID Oct 06, 2013 MEDICAI D [id number] EMERITA BAUTISTA PATIENT MEDICARE (WNR) MEDICARE (M) PART A Mar 06, 2015 PART A [id number] EMERITA BAUTISTA PATIENT MEDICARE (WNR) MEDICARE (M) PART B Mar 06, 2015 PART B [id number] EMERITA BAUTISTA PATIENT MEDICARE (WNR) MEDICARE (M) PART B Mar 06, 2015 PART B [id number] EMERITA BAUTISTA PATIENT MEDICARE (WNR) MEDICARE (M) PART A Mar 06, 2015 PART A [id number] EMERITA BAUTISTA PATIENT MEDICARE (WNR) MEDICARE (M) PART B Mar 06, 2015 PART B [id number] EMERITA BAUTISTA PATIENT MEDICARE (WNR) MEDICARE (M) PART B Mar 06, 2015 PART B [id number] EMERITA BAUTISTA PATIENT MEDICARE (WNR) MEDICARE (M) PART A Mar 06, 2015 PART A [id number] [phone] EMERITA BAUTISTA PATIENT Selected Encounter This section includes the information on [place] at [place] for the Encounter. Date/Time Encounter Type Encounter Description Reason Provider Source Aug 05, 2024 09:30 AM MTMS BY PHARM MARY 15 MIN CLINICAL PHARMACY ICD-10-CM E11.9 Type 2 diabetes mellitus without complications [facility] Encounter Template Text not used by [place] Assessments - Encounter Diagnoses This section includes the primary and secondary diagnoses documented for the Encounter. Date/Time Primary/Secondary Diagnosis Diagnosis Name Provider Source Aug 06, 2024 07:47 AM PRIMARY Type 2 diabetes mellitus without complications [facility] [place] Plan of Treatment: Future Appointments (+ 6 [...] 24, 2024 11:00 AM AMBULATORY - PS[place]CHIATRY [place] [facility] Aug 24, 2024 03:00 PM AMBULATORY - REHAB MEDICIN [place] Aug 27, 2024 10:00 AM AMBULATORY - MEDICINE [place] [facility] Sep 16, 2024 08:30 AM AMBULATORY - MEDICINE [facility] Sep 23, 2024 03:30 PM AMBULATORY - MEDICINE [place] [facility] Sep 24, 2024 12:00 PM AMBULATORY - MEDICINE [place] [facility] Sep 30, 2024 08:55 AM AMBULATORY - MEDICINE [place] [facility] Oct 15, 2024 08:00 AM AMBULATORY - MEDICINE [place] Oct 27, 2024 09:30 AM AMBULATORY - MEDICINE [place] [facility] Nov 04, 2024 03:00 PM AMBULATORY - MEDICINE [place] [facility] Nov 18, 2024 09:30 AM AMBULATORY - NONE [place] Nov 18, 2024 09:30 AM AMBULATORY - [place]ICINE [place] [facility] Jan 20, 2025 10:00 AM AMBULATORY - [...] PM Consult Order COMMUNITY CARE-BH PSYCHOTHERAPY Cons Jewelry Department Supervisor's [facility] Aug 25, 2024 01:01 PM Consult Order COMMUNITY CARE-ORTHO GENERAL Cons Jewelry Department Supervisor's [facility] Sep 16, 2024 08:39 PM Consult [facility] Jewelry Department Supervisor's [facility] Social History: Smoking Status (Most current) and [...] 08, 2024 09:00 AM VA-TOBACCO FORMER USER [place] Tobacco Use History This section includes a history of the smoking, or tobacco-related health factors, that were collected on or before the date of the Encounter. The data comes from the [place] facility where the Encounter took place. Date/Time Smoking Status/Tobacco Use Comment F acility Mar 08, 2024 09:00 AM [place]-TOBACCO QUIT 15 YRS OR MORE [place] Mar 27, 2022 09:30 AM VA-TOBACCO FORMER USER [place] Mar 27, 2022 09:30 AM VA-TOBACCO QUIT 15 YRS OR MORE [place] Dec 22, 2018 10:29 AM VA-TOBACCO FORMER USER [place] Dec 22, 2018 10:29 AM VA-TOBACCO QUIT 15 YRS OR MORE [place] Mar 19, 2018 11:33 AM VA-TOBACCO FORMER USER [place] Mar 19, 2018 11:33 AM VA-TOBACCO QUIT 15 YRS OR MORE [place] May 13, 2017 01:22 PM QUIT TOBACCO USE > 7 YEARS AGO quit 24 yrs ago [place] Nov 15, 2015 09:48 AM QUIT TOBACCO USE > 7 YEARS AGO States he last smoked 21 years ago [place] Dec 07, 2009 02:51 PM QUIT TOBACCO USE > 7 YEARS AGO [place] Advance Directives: All historical and current Section [...] Encounter Note(s) Provider Source Aug 05, 2024 10:08 [facility] NOTE: LOCAL TITLE: PHARMACY CLINIC NOTE STANDARD TITLE: PHARMACY OUTPATIENT NOTE DATE OF NOTE: AUG 05, 2024@10:08 ENTRY DATE: AUG 05, 2024@10:08:56 AUTHOR: SHANDA BECK COSIGNER: URGENCY: STATUS: COMPLETED Patient Name: EMERITA BAUTISTA was seen via [facility] for follow-up for diabetes management treatment. : Sep Age: 58 Sex: MALE Race: BLACK OR Subjective:Pt presented to a f/up 17 minutes late. Pt lost his job 4 months ago. He is struggling at this time and suing his previous employer. Pt continues to have problem w/ his knee and is trying to arrange knee surgery. Pt walks w/ cane. His back and knee are giving him lots of pain. Pt appears tired and is not happy [...] running high and he ran out of [email or web address] couple months ago. Per prev: Pt presents [...] at work. He has been out of [email or web address] for a week b/c pt [facility] pt went to [place] 2 weeks ago for sick call for [...] note on 12/16/22: Pt presents at the [facility] for persistent watery diarrhea [...] 3. Cervical radiculopathy 4. HTN - Hypertension ([facility] [id number]) 5. Diabetes Mellitus Type 2 ([facility] [id number]) 6. Allergic Rhinitis ([facility] [id number]) 7. Vitamin D Deficiency ([facility] [id number]) 8. Hyperlipidemia ([facility] [id number]) 9. Fatty liver 10. Fatigue 11. Edema of lower leg 12. Back pain 13. History of cholecystectomy 14. H/O: osteoarthritis 15. Depression 16. Onychomycosis of toenails 17. Knee pain (SNOMED CT 9961810721) 18. Osteoarthritis 19. Foot pain 20. Diabetic neuropathy 21. Erectile dysfunction 22. Type 2 diabetes mellitus 23. Flat Feet * 24. Depressive disorder (SNOMED CT 52642217) 25. History of male erectile disorder (SNOMED CT 494104736) 26. Disorder of urethra 27. PCP: Gm: [phone] 28. Knee: arthralgia 29. Ankle: arthralgia 30. [...] on 05/2023 ; eGFR 68ml/min on 03/2024 - Semaglutide 0.5 mg weekly (wednesdays) - missed few doses Previous DM Medications: -- liraglutide 1.8mg daily [...] 1.22 CRCL IBW: CrCl(est): 91.6 mL/min (Creat:1.22 6/24) CRCL ACT: 100 mL/min CRCL ADJ: 91.6 [...] LOW 0% VERY LOW sensor usage: 86% Date: 08/05/24 Dexcom G7 14 day avgt: 205 mg/dl; 23% VERY HIGH 42% HIGH 35% IN RANGE 0% LOW 0% VERY LOW sensor usage: 79% NUTRITION: breakfast: grapefruit; pt is in a [...] => 277 lbs 03/2024 => 272 lbs 04/2024 => 273 ASSESSMENT/PLAN: Per prev: Reviewed the dexcom G7 upload w/ . Time in target drastically reduced to 13%. [...] as well. REviewed nutrition. f/u in June. 08/05/24 The visit had to be cut short as pt presented to the visit late. Pt's BG control is poor. Recommend to increase the dose of insulin glargine and restart ozempic. Pt has been struggling both physically and mentally. Reviewed nutrition. f/up in September. DIABETES A1c is above goal of <7% - Medication management Diabetes Diabetes Medication Regimen: - INCREASE insulin glargine (Semglee) to 44units bid (and split into two seperate injections); if BG continues to be above 200 - may further increase to 46 units bid - c/t insulin Novolog 25 [...] H mg/G (03/2022) Most recent visit to [facility]: 10/2021 Most recent visit to optometry: 04/2022; Type 2 diabetes mellitus with moderate nonproliferative diabetic retinopathy with macular edema, right eye; Type 2 diabetes mellitus with mild nonproliferative diabetic retinopathy without macular edema, left eye 3. 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 Last A1c 7.4% - Ask optometry if it's safe to adminsiter semaglutide Clinic's Next Scheduled Follow-up: September, No barriers; Patient understands and agrees to [...] current medication due to other reason Plan: Increase insulin glargine Medication monitoring, no dosage change required, continue to monitor and assess /lora/ SHANDA BECK CLINICAL DRIVER SALES Signed: 08/06/2024 07:53 Receipt Acknowledged By: 08/06/2024 08:10 /lora/ JASMYNE SCHMITZ CERTIFIED NURSE PRACTITIONER SHANDA BECK [place]
--- OUTSIDE RECORDS SUMMARY | 2024-09-30 08:44 | XMS_ITS | Encounter Summary ---
Author Name [facility] [place] Address [address] [place] [address] Care Team Providers Care Vascular Ultrasound Technician Name Role Phone CHANI RHODES Primary Care [...] [facility] February 03, 2022 [id number] EMERITA BAUTISTA PATIENT [facility] MEDICAID MEDICAID MEDIC AID Oct 06, 2013 MEDICAI D [id number] EMERITA BAUTISTA PATIENT MEDICARE (WNR) MEDICARE (M) PART A Mar 06, 2015 PART A [id number] EMERITA BAUTISTA PATIENT MEDICARE (WNR) MEDICARE (M) PART B Mar 06, 2015 PART B [id number] [phone] EMERITA BAUTISTA PATIENT MEDICARE (WNR) MEDICARE (M) PART B Mar 06, 2015 PART B [id number] EMERITA BAUTISTA PATIENT MEDICARE (WNR) MEDICARE (M) PART A Mar 06, 2015 PART A [id number] EMERITA BAUTISTA PATIENT MEDICARE (WNR) MEDICARE (M) PART A Mar 06, 2015 PART A [id number] EMERITA BAUTISTA PATIENT MEDICARE (WNR) MEDICARE (M) PART B Mar 06, 2015 PART B [id number] EMERITA BAUTISTA PATIENT MEDICARE (WNR) MEDICARE (M) PART B Mar 06, 2015 PART B [id number] EMERITA BAUTISTA PATIENT Selected Encounter This section includes the information on record at [place] for the Encounter. Date/Time Encounter Type Encounter Description Reason Pro vider Source Aug 05, 2024 01:53 PM Outpatient Encounter PRIMARY CARE/MEDICINE IHE Encounter Template Text not used by [place] Plan of Treatment: Future Appointments (+ 6 months) and Future Tests (+/- 45 days) The Plan of Treatment section includes future care activities for the patient [facility] [place] [facility] This section includes future appointments and future [...] 2024 09:00 AM AMBULATORY - MEDICINE [facility] Aug 24, 2024 11:00 AM AMBULATORY - [place]ATRY [place] [facility] Aug 24, 2024 03:00 PM AMBULATORY - [place]AB MEDICIN [place] Aug 27, 2024 10:00 AM AMBULATORY - MEDICINE [place] [facility] Sep 16, 2024 08:30 AM [facility]ULATORY - MEDICINE [facility] Sep 23, 2024 03:30 PM AMBULATORY - MEDICINE [place] [facility] Sep 24, 2024 12:00 PM AMBULATORY - MEDICINE [place] [facility] Sep 30, 2024 08:55 AM AMBULATORY - MEDICINE [place] [facility] Oct 15, 2024 08:00 AM AM[facility]ULATORY - MEDICINE [facility] Oct 27, 2024 09:30 AM AMBULATORY - MEDICINE [place] [facility] Nov 04, 2024 03:00 PM AMBULATORY - MEDICINE [place] [facility] Nov 18, 2024 09:30 AM AM[place]ATORY - NONE [place] Nov 18, 2024 09:30 AM AM[place]UL[place]ORY [place]IC[place] [facility] Jan 20, 2025 10:00 AM [...] PM Consult Order COMMUNITY CARE-BH PSYCHOTHERAPY Cons Retail Seasonal Specialist's [facility] Aug 25, 2024 01:01 PM Consult Order COMMUNITY CARE-ORTHO GENERAL Cons Retail Seasonal Specialist'[facility] Sep 16, 2024 08:39 PM Consult Order HEPATOLOGY SERVICES IFC WHAV Cons Retail Seasonal Specialist's [facility] Social History: Smoking Status (Most current) [...] 11, 2023 08:30 AM [facility]ACCO [facility] Tobacco Use History This section includes a history of the smoking, or tobacco-related health factors, that were collected on or before the date of the Encounter. The data comes from the [place] facility where the Encounter took place. Date/Time Smoking Status/Tobacco Use Comment F acility Mar 11, 2023 08:30 AM VA-TOBACCO QUIT 15 YRS OR MORE [place] [facility] Dec 27, 2020 02:00 PM VA-TOBACCO FOR[facility] USER [place] [facility] Dec 27, 2020 02:00 PM VA-TOBACCO QUIT 15 YRS OR [facility] Advance Directives: All historical and current [...] Encounter Note(s) Provider Source Aug 05, 2024 01:53 PM MEDICATION MGT NOT E: LOCAL TITLE: OUTPATIENT MEDICATION REQUEST STANDARD TITLE: MEDICATION MGT NOTE DATE OF NOTE: AUG 05, 2024@13:53 ENTRY DATE: AUG 05, 2024@13:53:39 AUTHOR: MANDO COOLEY COSIGNER: URGENCY: STATUS: COMPLETED Medication Request Date of Request: Jul Is this a New Medication? No GABAPENTIN 100MG CAP [id number] 03/26/2024 03/26/2024 (0) SIG: TAKE ONE CAPSULE BY MOUTH THREE TIMES A DAY FOR 7 DAYS, THEN TAKE TWO CAPSULES THREE TIMES A DAY FOR 7 DAYS, THEN TAKE THREE CAPSULES THREE TIMES A DAY FOR 16 DAYS Indication: PAIN Provider: SABA KINCAID PLEASE RENEW AND MAIL /lora/ MANDO COOLEY LPN Licensed Practical Nurse Signed: 08/05/2024 13:57 Receipt Acknowledged By: 08/12/2024 12:33 /es/ SABA KINCAID MD PHYSICIAN MANDO COOLEY
--- OUTSIDE RECORDS SUMMARY | 2024-09-30 08:44 | XMS_ITS | Encounter Summary ---
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 [facility] [place] Address [address] [place] [address] Care Team Providers Care Football Coach Name Role Phone CHANI RHODES Primary Care [...] [facility] February 03, 2022 [id number] EMERITA BAUTISTA PATIENT [facility] MEDICAID MEDICAID MEDIC AID Oct 06, 2013 MEDICAI D [id number] EMERITA BAUTISTA PATIENT MEDICARE (WNR) MEDICARE (M) PART A Mar 06, 2015 PART A [id number] EMERITA BAUTISTA PATIENT MEDICARE (WNR) MEDICARE (M) PART B Mar 06, 2015 PART B [id number] [phone] EMERITA BAUTISTA PATIENT MEDICARE (WNR) MEDICARE (M) PART B Mar 06, 2015 PART B [id number] EMERITA BAUTISTA PATIENT MEDICARE (WNR) MEDICARE (M) PART A Mar 06, 2015 PART A [id number] EMERITA BAUTISTA PATIENT MEDICARE (WNR) MEDICARE (M) PART B Mar 06, 2015 PART B [id number] [phone] EMERITA BAUTISTA PATIENT MEDICARE (WNR) MEDICARE (M) PART B Mar 06, 2015 PART B [id number] EMERITA BAUTISTA PATIENT MEDICARE (WNR) MEDICARE (M) PART A Mar 06, 2015 PART A [id number] EMERITA BAUTISTA PATIENT Selected Encounter This section includes the information on record at [place] for the Encounter. Date/Time Encounter Type Encounter Description Reason Pro vider Source Jul 28, 2024 03:04 PM Outpatient Encounter PHYSICAL THERAPY IHE Encounter Template Text not used by [place] Plan of Treatment: Future Appointments (+ 6 months) and Future Tests (+/- 45 days) The Plan of Treatment section includes future care activities for the [facility] [place] [facility] This section includes future appointments and future orders which are active, pending or scheduled. Future Appointments This section includes appointments that were scheduled to occur 6 months from the date of the Encounter, up to a maximum of 20 appointments. The data comes from all [place] treatment facilities. Appointment Date/Time Appointment Type Appointme nt Facility Name Aug 05, 2024 09:30 AM AMBULATORY - [place]ICINE [place] [facility] Aug 19, 2024 09:00 AM [facility]ORY - MEDICINE [facility] Aug 24, 2024 11:00 AM AMBULATORY - [place]IATRY [place] [facility] Aug 24, 2024 03:00 PM AMBULATORY - REHAB MEDICIN [facility] Aug 27, 2024 10:00 AM AMBULATORY - MEDICINE [place] [facility] Sep 16, 2024 08:30 AM AM[facility]ULATORY - MEDICINE [facility] Sep 23, 2024 03:30 PM AMBULATORY - MEDICINE [place] [facility] Sep 24, 2024 12:00 PM AMBULATORY - MEDICINE [place] [facility] Sep 30, 2024 08:55 AM AMBULATORY - MEDICINE [place] [facility] Oct 15, 2024 08:00 AM AM[place]UL[place]ORY - [place]ICINE [place] [place] Oct 27, 2024 09:30 AM AMBULATORY - MEDICINE [place] [facility] Nov 04, 2024 03:00 PM AMBULATORY - MEDICINE [place] [facility] Nov 18, 2024 09:30 AM AMBULATORY - NONE [place] Nov 18, 2024 09:30 AM AMBULATORY - [place]IC[place] [facility] Jan 20, 2025 10:00 AM [facility] Active, Pending, and Scheduled Orders This section includes a listing of several types of active, pending, and scheduled orders, including clinic medications orders, diagnostic test orders, procedure orders and consult orders; where the start date of the order is 45 days before the date of the Encounter or 45 days after the date of theEncounter. The data comes from all [place] treatment facilities. Test Date/Time Test Type Test Details Facility Name Jul 14, 2024 04:18 PM Consult Order COMMUNITY CARE-BH PSYCHOTHERAPY Cons Public Health Physician's [facility] Aug 25, 2024 01:01 PM Consult Order COMMUNITY CARE-ORTHO GENERAL Cons Public Health Physician's [facility] Social History: Smoking Status (Most current) and [...] 11, 2023 08:30 AM VA-TOBACCO FORMER USER [employer] [facility] [facility] Tobacco Use History This section includes a history of the smoking, or tobacco-related health factors, that were collected on or before the date of the Encounter. The data comes from the [place] facility where the Encounter took place. Date/Time Smoking Status/Tobacco Use Comment F acility Mar 11, 2023 08:30 AM [facility]CO [facility] [place] [facility] Dec 27, 2020 02:00 PM [facility] Dec 27, 2020 02:00 PM VA-TOBACCO QUIT 15 YRS OR MORE [facility] Advance Directives: All historical and current [...] Encounter. Date/Time Encounter Note(s) Provider Source Jul 28, 2024 03:04 PM CLERICAL NOTE: LOCAL TITLE: APPOINTMENT NO SHOW STANDARD TITLE: CLERICAL NOTE DATE OF NOTE: JUL 28, 2024@15:04 ENTRY DATE: JUL 28, 2024@15:04:38 AUTHOR: DAVID BROWN COSIGNER: URGENCY: STATUS: COMPLETED Patient Name: EMERITA BAUTISTA Patient SSN: [id number] Date and time of Appointment No show : 07/28/24 15:04 PATIENT PHONE - PHONE NUMBER [CELLULAR] - Patient's medical record was reviewed. Follow-up actions were determined and initiated: Please check/complete as applies: [ ]Telephoned Directly [ ]Re-scheduled for next available appt [X]Sent a N0-show letter ( must call for appointment) [ ]Other (Emergent/Overbook, etc.): Additional Comments: Future Clinic Visits 08/05/2024 09:30 CWM/SO/PHARM/PACT 2 08/27/2024 10:00 CWM/NO/PAIN MD CLINIC 09/13/2024 11:00 CWM/SO/PACT EIGHT 05/03/2025 10:00 NHM/OPTOMETRY/WELSH/ /es/ DAVID BROWN Signed: 07/28/2024 15:04 DAVID BROWN
--- OUTSIDE RECORDS SUMMARY | 2024-09-30 08:44 | XMS_ITS | Encounter Summary ---
Author Name [facility] [place] Address [address] [place] [address] Care Team Providers Care Editor Sound Name Role Phone CHANI RHODES Primary Care [...] [facility] February 03, 2022 [id number] EMERITA BAUTISTA PATIENT [facility] MEDICAID MEDICAID MEDIC AID Oct 06, 2013 MEDICAI D [id number] EMERITA BAUTISTA PATIENT MEDICARE (WNR) MEDICARE (M) PART A Mar 06, 2015 PART A [id number] EMERITA BAUTISTA PATIENT MEDICARE (WNR) MEDICARE (M) PART B Mar 06, 2015 PART B [id number] [phone] EMERITA BAUTISTA PATIENT MEDICARE (WNR) MEDICARE (M) PART B Mar 06, 2015 PART B [id number] EMERITA BAUTISTA PATIENT MEDICARE (WNR) MEDICARE (M) PART A Mar 06, 2015 PART A [id number] EMERITA BAUTISTA PATIENT MEDICARE (WNR) MEDICARE (M) PART B Mar 06, 2015 PART B [id number] EMERITA BAUTISTA PATIENT MEDICARE (WNR) MEDICARE (M) PART A Mar 06, 2015 PART A [id number] EMERITA BAUTISTA PATIENT MEDICARE (WNR) MEDICARE (M) PART B Mar 06, 2015 PART B [id number] EMERITA BAUTISTA PATIENT Selected Encounter This section includes the information on record at [place] for the Encounter. Date/Time Encounter Type Encounter Description Reason Pro vider Source Jul 01, 2024 12:00 AM Outpatient Encounter COMMUNITY CARE CONSULT IHE Encounter Template Text not used by [place] Plan of Treatment: Future Appointments (+ 6 months) and Future Tests (+/- 45 days) The Plan of Treatment section includes future care activities for the patient [facility] [place] [facility] This section includes future appointments and future [...] AM [facility]ULATORY - [facility]ICINE [facility] Jul 13, 2024 10:00 [facility] 10[facility] Aug 05, 2024 09:30 AM AM[place] [facility] Aug 19, 2024 09:00 AM AM[facility]ULATORY - MEDICINE [facility] Aug 24, 2024 11:00 AM AMBULATORY - PS[place]IATRY [place] [facility] Aug 24, 2024 03:00 PM AMBULATORY - REHAB MEDICIN [facility] Aug 27, 2024 10:00 AM AMBULATORY - [place]ICINE [place] [facility] Sep 16, 2024 08:30 AM AM[facility]ULATORY - MEDICINE [facility] Sep 23, 2024 03:30 PM AMBULATORY - [place]ICINE [place] [facility] Sep 24, 2024 12:00 PM AMBULATORY - [place]ICINE [place] [facility] Sep 30, 2024 08:55 AM AMBULATORY - MEDICINE [place] [facility] Oct 15, 2024 08:00 AM AMBULATORY - MEDICINE [place] [place] Oct 27, 2024 09:30 AM AMBULATORY - MEDICINE [place] [facility] Nov 04, 2024 03:00 PM AMBULATORY - MEDICINE [place] [facility] Nov 18, 2024 09:30 AM AMBULATORY - NONE [place] Nov 18, 2024 09:30 AM AMBULATORY - [place]ICINE [place] [facility] Active, Pending, and Scheduled Orders This section includes a listing of several types of active, pending, and scheduled orders, including clinic medications orders, diagnostic test orders, procedure orders and consult orders; where the start date of the order is 45 days before the date of the Encounter or 45 days after the date of theEncounter. The data comes from all [place] treatment facilities. Test Date/Time Test Type Test Details Facility Name Jul 14, 2024 04:18 PM Consult Order [facility] PSYCH[facility] Cons Supervisor [employer] [place] Social History: Smoking Status (Most current) and [...] 11, 2023 08:30 AM [facility]ACCO [facility] Tobacco Use History This section includes a history of the smoking, or tobacco-related health factors, that were collected on or before the date of the Encounter. The data comes from the [place] facility where the Encounter took place. Date/Time Smoking Status/Tobacco Use Comment F acility Mar 11, 2023 08:30 AM VA-TOBACCO QUIT 15 YRS OR MORE [place] [facility] Dec 27, 2020 02:00 PM VA-TOBACCO FORMER USER [place] [facility] Dec 27, 2020 02:00 PM VA-TOBACCO QUIT 15 YRS OR MORE [facility] Advance Directives: All historical and current [...] Encounter. Date/Time Encounter Note(s) Provider Source Jul 01, 2024 12:00 AM NONVA CONSULT: LOCAL TITLE: COMMUNITY CARE-CONSULT RESULT NOTE STANDARD TITLE: NONVA CONSULT DATE OF NOTE: JUL 01, 2024 ENTRY DATE: JUL 26, 2024@19:23:19 AUTHOR: RAJI MONZON MA EXP COSIGNER: URGENCY: STATUS: COMPLETED VistA Imaging - Scanned Document SCANNED DOCUMENT SIGNATURE NOT REQUIRED Electronically Filed: 07/26/2024 by: RAJI MONZON SOOT BLOWER RAJI MONZON [facility]
--- OUTSIDE RECORDS SUMMARY | 2024-09-30 08:44 | XMS_ITS | Encounter Summary ---
Author Name [facility] [place] [place] Organization [facility] [place] Address [address] [place] [address] Care Team Providers Care Special Deputy Sheriff Name Role Phone CHANI ROHDES Primary Care Provider Unavailabl e Insurance Providers: [...] [facility] February 03, 2022 [id number] EMERITA BAUTISTA PATIENT [facility] MEDICAID MEDICAID MEDIC AID Oct 06, 2013 MEDICAI D [id number] EMERITA BAUTISTA PATIENT MEDICARE (WNR) MEDICARE (M) PART A Mar 06, 2015 PART A [id number] [phone] EMERITA BAUTISTA PATIENT MEDICARE (WNR) MEDICARE (M) PART B Mar 06, 2015 PART B [id number] [phone] EMERITA BAUTISTA PATIENT MEDICARE (WNR) MEDICARE (M) PART B Mar 06, 2015 PART B [id number] EMERITA BAUTISTA PATIENT MEDICARE (WNR) MEDICARE (M) PART A Mar 06, 2015 PART A [id number] EMERITA BAUTISTA PATIENT MEDICARE (WNR) MEDICARE (M) PART B Mar 06, 2015 PART B [id number] EMERITA BAUTISTA PATIENT MEDICARE (WNR) MEDICARE (M) PART A Mar 06, 2015 PART A [id number] EMERITA BAUTISTA PATIENT MEDICARE (WNR) MEDICARE (M) PART B Mar 06, 2015 PART B [id number] [phone] EMERITA BAUTISTA PATIENT Selected Encounter This section includes the information on record at [place] for the Encounter. Date/Time Encounter Type Encounter Description Reason Provider Source Aug 19, 2024 09:00 AM OFF/OP EST FEBRUARY X REQ PHY/QHP PRIMARY CARE/MEDICINE ICD-10-CM M54.50 Low back pain, unspecified BIANCA GONZALEZ Behzad Encounter Template Text not used by [place] Assessments - Encounter Diagnoses This section includes the primary and secondary diagnoses documented for the Encounter. Date/Time Primary/Secondary Diagnosis Diagnosis Name Provider Source Aug 19, 2024 10:03 AM PRIMARY Low back pain, unspecified BIANCA GONZALEZ NILS Aug 19, 2024 10:03 AM SECONDARY Encounter for immunization BIANCA GONZALEZ NILS Plan of Treatment: Future Appointments (+ [...] 24, 2024 11:00 AM AMBULATORY - PSYCHIATRY PR TARIKRBrittany [facility] Aug 24, 2024 03:00 PM AMBULATORY - REHAB MEDICIN E [facility] Aug 27, 2024 10:00 AM AMBULATORY - MEDICINE [place] C [facility] [facility] Sep 16, 2024 08:30 AM AMBULATORY - MEDICINE [facility] Sep 23, 2024 03:30 PM AMBULATORY [facility] MEDICINE [facility] [place] [facility] Sep 24, 2024 12:00 PM AMBULATORY - MEDICINE [facility] [place] [facility] Sep 30, 2024 08:55 AM AMBULATORY - MEDICINE [place] [facility] [place] [place] [facility] Oct 15, 2024 08:00 AM AMBULATORY - MEDICINE [place] Oct 27, 2024 09:30 AM AMBULATORY - MEDICINE [facility] [place] [facility] Nov 04, 2024 03:00 PM AMBULATORY - MEDICINE [place] [facility] [place] [facility] Nov 18, 2024 09:30 AM AMBULATORY - NONE [place] Nov 18, 2024 09:30 AM AMBULATORY - [place]IC[place] [facility] Jan 20, 2025 10:00 AM AMBULATORY - MEDICINE [facility] Active, Pending, and Scheduled Orders This section includes a listing of several types of active, pending, and scheduled orders, including clinic medications orders, diagnostic test orders, procedure orders and consult orders; where the start date of the order is 45 days before the date of the Encounter or 45 days after the date of theEncounter. The data comes from all [place] treatment facilities. Test Date/Time Test Type Test Details Facility Name Jul 14, 2024 04:18 PM Consult Order COMMUNITY CARE-BH PSYCHOTHERAPY Cons [facility] Aug 25, 2024 01:01 PM Consult Order COMMUNITY CARE-ORTHO GENERAL Cons [facility] Sep 16, 2024 08:39 PM Consult [facility] Sep 21, 2024 12:00 AM Laboratory - Chemistry Order ALCOHOL, ETHYL URINE PANEL URINE (DRUG) SP [facility] [place] [facility] Sep 21, 2024 12:00 AM Laboratory - Chemistry Order AMPHETAMINES SCREEN PANEL URINE (DRUG) SP [facility] [place] [facility] Sep 21, 2024 12:00 AM Laboratory - Chemistry Order FENTANYL SCREEN PANEL URINE (DRUG) SP [facility] [place] [facility] Sep 21, 2024 12:00 AM Laboratory - Chemistry Order BENZODIAZEPINES SCREEN PANEL URINE (DRUG) SP [facility] [place] [facility] Sep 21, 2024 12:00 AM Laboratory - Chemistry Order BUPRENORPHINE SCREEN PANEL URINE (DRUG) SP [facility] [place] [facility] Sep 21, 2024 12:00 AM Laboratory - Chemistry Order CANNABINOIDS SCREEN PANEL URINE (DRUG) [facility] [place] [facility] Sep 21, 2024 12:00 AM Laboratory - Chemistry Order COCAINE SCREEN PANEL URINE (DRUG) [facility] [place] [facility] Sep 21, 2024 12:00 AM Laboratory - Chemistry Order OPIATES SCREEN PANEL URINE (DRUG) [facility] [place] [facility] Sep 21, 2024 12:00 AM Laboratory - Chemistry Order METHADONE SCREEN URINE [facility] [place] [facility] Sep 21, 2024 12:00 AM Laboratory - Chemistry Order OXYCODONE SCREEN PANEL URINE (DRUG) [facility] Lab Results: +/- 30 days of the encounter This section includes the Chemistry and Hematology Lab Results on record with [facility] for the patient. Radiology Reports and Pathology Reports are provided separately, in subsequent sections. Lab Results This section contains the Chemistry/Hematology Results that were resulted 30 days before or 30 daysafter the date of the Encounter. Date/Time Source Result Type Result - Unit Interpretation Reference Range Comment Sep 07, 2024 09:20 AM [facility] TSH Specimen Type: SERUM No comment entered. Ordering Provider: CHANI RHODES Report Released Date/Time: Sep 06, 2024 01:20 PM Reporting [facility]: [facility] [address] [address] Performing Lab: [facility] [address] [address] TSH 1.86 u[IU]/mL 0.35-5.00 Sep 07, 2024 09:20 AM [facility] PSA Specimen Type: SERUM No comment entered. Ordering Provider: CHANI RHODES Report Released Date/Time: Sep 06, 2024 01:20 PM Reporting Lab: [facility] [address] [address] Performing Lab: [facility] [address] [address] PSA 0.33 ng/mL 0.00-4.00 Sep 07, 2024 09:20 AM [facility] LIPID PANEL FASTING Specimen Type: SERUM Comment: Hemolysis present analysis cannot be performed. Hemolysis present may falsly elevate Potassium Total and Direct Bili, Iron, AST, %Fe. Ordering Provider: CHANI RHODES Report Released Date/Time: Sep 06, 2024 01:20 PM Reporting Lab: [address] [address] Performing Lab: [address] [address] CHOLESTEROL 131 mg/dL TRIGLYCERIDE 219 mg/dL H 0-150 LDL calculated 55 mg/dL 0-129 CHOL/HDL 4.1 HDL CHOLESTEROL 32 mg/dL L 40-60 Sep 07, 2024 09:20 AM [facility] HEMOGLOBIN A1C PANEL Specimen Type: BLOOD Comment: [...] Sep 06, 2024 01:20 PM Reporting Lab: [address] [address] Performing Lab: [address] [address] HEMOGLOBIN A1C 8.1 H 4.0-5.6 Sep 07, 2024 09:20 AM [facility] BASIC METABOLIC PANEL (fasting) Specime n Type: SERUM Comment: Hemolysis present analysis cannot be performed. Hemolysis present may falsly elevate Potassium Total and Direct Bili, Iron, AST, %Fe. Ordering Provider: CHANI RHODES Report Released Date/Time: Sep 06, 2024 01:20 PM Reporting Lab: [address] [address] Performing Lab: [address] [address] UREA NITROGEN 15 mg/dL 7-25 GLUCOSE 176 mg/dL H 65-100 SODIUM 139 mmol/L 135-145 POTASSIUM 4.4 mmol/L 3.5-5.0 CHLORIDE 104 mmol/L 100-110 CO2 23 meq/L 20-30 CREATININE, Serum 1.15 mg/dL 0.50-1.40 eGFR(CKD-EPI 2020) 73 mL/min >60 Sep 07, 2024 09:20 AM [facility] LIVER FUNCTION Specimen Type: SERUM Comment: Hemolysis present analysis cannot be performed. Hemolysis present may falsly elevate Potassium Total and Direct Bili, Iron, AST, %Fe. Ordering Provider: CHANI RHODES Report Released Date/Time: Sep 06, 2024 01:20 PM Reporting Lab: [address] [address] Performing Lab: [address] [address] PROTEIN,TOTAL 7.5 g/dL 6.0-8.3 ALBUMIN 3.9 g/dL 3.5-5.0 ALKALINE PHOSPHATASE 80 U/L 40-150 AST 34 U/L 5-34 ALT 56 U/L H BILIRUBIN, TOTAL comment mg/dL 0.2-1.2 BILIRUBIN, DIRECT comment mg/dL 0-0.5 Sep 07, 2024 09:20 AM [facility] MICROALBUMIN CREATININE RATIO PANEL Spe cimen Type: URINE No comment entered. Ordering Provider: CHANI RHODES Report Released Date/Time: Sep 06, 2024 01:20 PM Reporting Lab: [address] [address] Performing Lab: [address] [address] MICROALBUMIN/C REATININE RATIO 18.2 mg/g 0-29.9 MICROALBUMIN,Q UANTITATIVE 0.9 mg/dL RR UNAVAIL CREATININE URINE 49.56 mg/dL Sep 07, 2024 09:20 AM [facility] URINALYSIS Specimen Type: URINE Comment: If Glucose = >500 and Ketones are positive, please alert the Physician. Ordering Provider: CHANI RHODES Report Released Date/Time: Sep 06, 2024 01:20 PM Reporting Lab: [address] [address] Performing Lab: [address] [place] [address] UA COLOR Colorless Yellow UA APPEARANCE Clear Clear UA GLUCOSE >1000 mg/dL Negative UA KETONES NEGATIVE mg/dL Negative UA BLOOD NEGATIVE mg/dL Negative UA PROTEIN NEGATIVE mg/dL Negative UA NITRITE NEGATIVE mg/dL Negative UA BILIRUBIN NEGATIVE mg/dL Negative UA SPECIFIC GRAVITY 1.023 H 1.016-1.022 UA pH 6.0 5.0-9.0 UA UROBILINOGEN Normal mg/dL <2.0 UA LEUKOCYTE NEGATIVE Negative Sep 07, 2024 09:20 AM [facility] CBC AND DIFF (AUTO) Specimen Type: BLOOD No comment entered. Ordering Provider: CHANI RHODES Report Released Date/Time: Sep 06, 2024 01:20 PM Reporting Lab: [address] [address] Performing Lab: [address] [address] WBC 5.45 10*3/uL 4.50-11.00 RBC 5.45 10*6/uL [...] 0.0 0.0-0.0 NRBC, ABS 0.00 10*3/uL 0.00-0.00 Vital Signs: All taken on the encounter date This section contains inpatient and outpatient Vital Signs collected on the date of the Encounter. Date/Time Temperature Pulse Blood Pressure Respiratory Rate SP02 Pain Height Weight Body Mass Index Source Aug 19, 2024 09:25 AM 97.5 75 147/92 18 97 9 [facility] IELD Immunizations: All administered on the encounter date This section contains immunizations associated to the Encounter. Immunization Series Date Issued Reaction Comments INFLUENZA, SPLIT VIRUS, TRIVALENT, PF Aug 19 2 024 Social History: Smoking Status (Most current) and [...] 08, 2024 09:00 AM VA-TOBACCO FORMER USER [facility] Tobacco Use History This section includes a history of the smoking, or tobacco-related health factors, that were collected on or before the date of the Encounter. The data comes from the [place] facility where the Encounter took place. Date/Time Smoking Status/Tobacco Use Comment F acility Mar 08, 2024 09:00 AM VA-TOBACCO QUIT 15 YRS OR MORE [facility] Mar 27, 2022 09:30 AM VA-TOBACCO FORMER USER [facility] Mar 27, 2022 09:30 AM VA-TOBACCO QUIT 15 YRS OR MORE [facility] Dec 22, 2018 10:29 AM VA-TOBACCO FORMER USER [facility] Dec 22, 2018 10:29 AM VA-TOBACCO QUIT 15 YRS OR MORE [facility] Mar 19, 2018 11:33 AM VA-TOBACCO FORMER USER [facility] Mar 19, 2018 11:33 AM VA-TOBACCO QUIT 15 YRS OR MORE [facility] May 13, 2017 01:22 PM QUIT TOBACCO USE > 7 YEARS AGO quit 24 yrs ago [facility] Nov 15, 2015 09:48 AM QUIT TOBACCO USE > 7 YEARS AGO States he last smoked 21 years ago [facility] Dec 07, 2009 02:51 PM QUIT TOBACCO USE > 7 YEARS AGO [facility] Advance Directives: All historical and current Section [...] May 23, 2011 ADVANCE DIRECTIVE JUD BROOKS ARASELI Ellison Encounter Notes: All associated encounter notes This section contains the clinical notes associated to the Encounter. Date/Time Encounter Note(s) Provider Source Aug 19, 2024 09:27 AM PRIMARY CARE NOTE: LOCAL TITLE: WALK-IN NOTE PRIMARY CARE (T) STANDARD TITLE: PRIMARY CARE NOTE DATE OF NOTE: AUG 19, 2024@09:27 ENTRY DATE: AUG 19, 2024@09:27:28 AUTHOR: BIANCA GONZALEZ COSIGNER: URGENCY: STATUS: COMPLETED Data: 58year old MALE Greeley reports to Primary Care clinic for Walk-In visit. Greeley's PCP is CHANI RHODES Vet walks in to clinic with complaint of Last recorded Vital Signs are: Temperature:97.5 F [36.4 C] (08/19/2024 09:25) Pulse:75 (08/19/2024 09:25) Blood Pressure:147/92 (08/19/2024 09:25) Respiration:18 (08/19/2024 09:25) Pain:9 (08/19/2024 09:25) Vet reports current allergies are: Remote Allergy [...] BY MOUTH ONCE ACTIVE DAILY 7) GABAPENTIN 300MG CAP TAKE ONE CAPSULE BY MOUTH THREE ACTIVE TIMES A DAY FOR NERVE PAIN 8) GLUCOSE 4GM CHEW TAB CHEW FOUR TABLETS BY MOUTH ACTIVE NEEDED FOR LOW BLOOD SUGAR 9) GLUCOSE SENSOR DEXCOM G7 USE 1 SENSOR DIRECTED ACTIVE EVERY 10 DAYS 10) INSULIN,ASPART(EQV-NOVLG)100UN/ML FLXPEN INJECT 27 ACTIVE UNITS SUBCUTANEOUSLY [...] ONE TABLET BY ACTIVE MOUTH ONCE DAILY 15) SEMAGLUTIDE 0.25MG/0.375ML INJ PEN 3ML INJECT 0.5MG ACTIVE SUBCUTANEOUSLY ONCE A WEEK FOR TYPE 2 DIABETES MELLITUS Action: Greeley reports to sick call with reports of a flare up of his lower back pain. States he has been dealing with it for over 10 years. 2 days ago he started to have increase in lower back spasms causing radiation down left leg. Denies numbness or tingling. Denies bowel or bladder incontinence Pain sharp and shooting with any movement. 06/15 currently States he has been sitting more due to increase in knee pain. Thinks this might be aggravating his back. Left lower back with tightness and tenderness. Using cane at baseline, difficulty noted with trying to stand and ambulate due to the pain. Greeley reports using Tylenol and lidocaine patches with minimal effect. Has been effecting his sleep. discussed findings with Rodney BOOTHE see new orders Educated Greeley on new medication, advised to use Tylenol and lidocaine as directed as well as moist heat. in agreement with plan and verbalized understanding. Reminders Info Only: [email or web address] Video Connect Capable DUE NOW Advance Directive Screen MH AD Jul 28 Pneumococcal Conjugate Vaccine (PCV15/PCDUE NOW Influenza Immunization DUE NOW Medication Reconciliation DUE NOW Td / Tdap Immunization May 09 HTN Assess for Elevated BP>=140/90 DUE NOW Opioid Drug Screening V2 DUE NOW Sexual Orientation May 21 PAVE Foot Check DUE NOW (Optional) Whole Health Documentation DUE NOW Influenza Immunization: Influenza, Trivalent, Preservative Free (Fluarix-Syringe) Administered: INFLUENZA, SPLIT VIRUS, TRIVALENT, PF Date Administered: Aug 19, 2024 09:00 Tubing Mill Setter: Crayon Data Lot: [id number] Exp Date: Apr 04, 2025 [facility]: [id number] Admin Route/Site: INTRAMUSCULAR/LEFT DELTOID Dosage: 0.5mL Vaccine Information Statement(s): INFLUENZA(FLU) VACC(INACTIVATED OR RECOMBINANT)VIS May 11, 2021 (CROATIAN) Order By: Policy Administered By: Bianca Gonzalez The Influenza Vaccine Information Statement (VIS) was reviewed with the patient/caregiver which lists the benefits and risks of the vaccine and the risks of not receiving the Influenza vaccine. The patient/caregiver denied any prior severe reaction to this vaccine or its components or a severe allergic reaction, such as anaphylaxis, to any vaccine or any injectable therapy. The patient/caregiver gave verbal consent to receive the vaccine. Sexual Orientation: The patient thinks of their sexual orientation as: Straight or Heterosexual /lora/ BIANCA GONZALEZ RN PRIMARY CARE RN Signed: 08/19/2024 10:03 BIANCA GONZALEZ [facility]
--- OUTSIDE RECORDS SUMMARY | 2024-09-30 08:44 | XMS_ITS | Encounter Summary ---
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 Organization [place] Address [address] [place] [address] Care Team Providers Care Ski Lift Attendant Name Role Phone CHANI RHODES Primary Care [...] [facility] February 03, 2022 [id number] [facility] MEDICAID MEDICAID MEDIC AID Oct 06, 2013 MEDICAI D [id number] EMERITA BAUTISTA PATIENT MEDICARE (WNR) MEDICARE (M) PART A Mar 06, 2015 PART A [id number] EMERITA BAUTISTA PATIENT MEDICARE (WNR) MEDICARE (M) PART B Mar 06, 2015 PART B [id number] EMERITA BAUTISTA PATIENT MEDICARE (WNR) MEDICARE (M) PART B Mar 06, 2015 PART B [id number] EMERITA BAUTISTA PATIENT MEDICARE (WNR) MEDICARE (M) PART A Mar 06, 2015 PART A [id number] EMERITA BAUTISTA PATIENT MEDICARE (WNR) MEDICARE (M) PART B Mar 06, 2015 PART B [id number] EMERITA BAUTISTA PATIENT MEDICARE (WNR) MEDICARE (M) PART B Mar 06, 2015 PART B [id number] [phone] EMERITA BAUTISTA PATIENT MEDICARE (WNR) MEDICARE (M) PART A Mar 06, 2015 PART A [id number] [phone] EMERITA BAUTISTA PATIENT Selected Encounter This section includes the information on record at [place] for the Encounter. Date/Time Encounter Type Encounter Description Reason Pro vider Source Aug 06, 2024 07:53 AM Outpatient Encounter CLINICAL PHARMACY IHE Encounter Template Text not used by [place] Plan of Treatment: Future Appointments (+ 6 months) and Future Tests (+/- 45 days) The Plan of Treatment section includes [facility] care [facility] the [facility] [place] [facility] This section includes future appointments and [...] 24, 2024 11:00 AM AMBULATORY - PSYCHIATRY [place] [facility] [place] [facility] Aug 24, 2024 03:00 PM AMBULATORY - REHAB MEDICIN [facility] Aug 27, 2024 10:00 AM AMBULATORY - MEDICINE IN [place] [facility] [facility] [facility] Sep 16, 2024 08:30 AM AMBULATORY - MEDICINE [facility] Sep 23, 2024 03:30 PM AMBULATORY - MEDICINE IN [place] [facility] Sep 24, 2024 12:00 PM AMBULATORY - MEDICINE IN [place] [facility] [place] [facility] Sep 30, 2024 08:55 AM AMBULATORY - MEDICINE IN [place] [facility] [place] [facility] [...] of theEncounter. The data comes from all [place] treatment facilities. Test Date/Time Test Type Test Details Facility Name Jul 14, 2024 04:18 PM Consult Order COMMUNITY CARE-BH PSYCHOTHERAPY Cons [facility] Aug 25, 2024 01:01 PM Consult Order COMMUNITY CARE-ORTHO GENERAL [facility] Sep 16, 2024 08:39 PM Consult Order HEPATOLOGY SERVICES [facility] Cons [facility] Social History: Smoking Status (Most [...] AM VA-TOBACCO QUIT 15 YRS OR MORE [facility] Tobacco Use History This section includes a history of the smoking, or tobacco-related health factors, that were collected on or before the date of the Encounter. The data comes from the [place] facility where the Encounter took place. Date/Time Smoking Status/Tobacco Use Comment F acility Mar 11, 2023 08:30 AM [facility]ACCO [facility] [place] [facility] Dec 27, 2020 02:00 PM VA-TOBACCO FOR[facility] USER [facility] Dec 27, 2020 02:00 PM VA-TOBACCO QUIT 15 YRS OR MORE [facility] Advance Directives: All historical and current [...] Encounter. Date/Time Encounter Note(s) Provider Source Aug 06, 2024 07:53 AM DIABETOLOGY NOTE: LOCAL TITLE: INSULIN PUMP/CGM DOWNLOAD (T) STANDARD TITLE: DIABETOLOGY NOTE DATE OF NOTE: AUG 06, 2024@07:53 ENTRY DATE: AUG 06, 2024@07:53:50 AUTHOR: SHANDA BECK EXP COSIGNER: URGENCY: STATUS: COMPLETED Please select: Personal Continuous Glucose Monitor- DEXCOM G7 Date of Documentation:Jul Please see attached scanned document in [employer]. /lora/ SHANDA BECK CLINICAL PET TRAINING INSTRUCTOR Signed: 08/06/2024 07:54 SHANDA BECK
--- OUTSIDE RECORDS SUMMARY | 2024-09-30 08:45 | XMS_ITS | Encounter Summary ---
Author Name [facility] [place] [facility] [place] Address [address] [place] [address] Care Team Providers Care Weight Loss Physician Name Role Phone CHANI RHODES Primary Care [...] [facility] February 03, 2022 [id number] EMERITA BAUTISTA PATIENT [facility] MEDICAID MEDICAID MEDIC AID Oct 06, 2013 MEDICAI D [id number] EMERITA BAUTISTA PATIENT MEDICARE (WNR) MEDICARE (M) PART A Mar 06, 2015 PART A [id number] EMERITA BAUTISTA PATIENT MEDICARE (WNR) MEDICARE (M) PART B Mar 06, 2015 PART B [id number] EMERITA BAUTISTA PATIENT MEDICARE (WNR) MEDICARE (M) PART B Mar 06, 2015 PART B [id number] EMERITA BAUTISTA PATIENT MEDICARE (WNR) MEDICARE (M) PART A Mar 06, 2015 PART A [id number] [phone] EMERITA BAUTISTA PATIENT MEDICARE (WNR) MEDICARE (M) PART B Mar 06, 2015 PART B [id number] EMERITA BAUTISTA PATIENT MEDICARE (WNR) MEDICARE (M) PART A Mar 06, 2015 PART A [id number] EMERITA BAUTISTA PATIENT MEDICARE (WNR) MEDICARE (M) PART B Mar 06, 2015 PART B [id number] [phone] EMERITA BAUTISTA PATIENT Selected Encounter This section includes the information on record at [place] for the Encounter. Date/Time Encounter Type Encounter Description Reason Pro vider Source May 25, 2024 12:00 AM Outpatient Encounter EVENT (HISTORICAL) IHE Encounter Template Text not used by [place] Plan of Treatment: Future Appointments (+ 6 months) and Future Tests (+/- 45 days) The Plan of Treatment section includes future care activities for the [facility] [place] [facility] This section includes future appointments and future orders which are active, pending or scheduled. Future Appointments This section includes appointments that were scheduled to occur 6 months from the date of the Encounter, up to a maximum of 20 appointments. The data comes from all [place] treatment facilities. Appointment Date/Time Appointment Type Appointme nt Facility Name Jun 10, 2024 09:30 AM AM[place]ULATORY [place] [facility] Jun 23, 2024 08:00 [facility], 2024 07:30 AM [facility] - [facility] Jul 01, 2024 02:45 PM AMBULATORY - MEDICINE [place] [facility] Jul 06, 2024 08:00 AM [facility]ORY - MEDICINE [facility] Jul 13, 2024 10:00 [facility] Jul 28[facility] 2024 10:00 [facility] Aug 05, 2024 09:30 AM AMBULATORY - MEDICINE [place] [facility] Aug 19, 2024 09:00 AM [facility]ULATORY - MEDICINE [facility] Aug 24, 2024 11:00 AM AMBULATORY - PSYCHIATRY [place] [facility] [place] [facility] Aug 24, 2024 03:00 PM AM[facility]ULATORY [place] Aug 27, 2024 10:00 AM AMBULATORY - MEDICINE [place] [facility] Sep 16, 2024 08:30 AM [facility] Sep 23, 2024 03:30 PM AMBULATORY - MEDICINE [place] [facility] Sep 24, 2024 12:00 PM AMBULATORY - MEDICINE [place] [facility] Sep 30, 2024 08:55 AM AMBULATORY - MEDICINE [place] [facility] Oct 15, 2024 08:00 AM AMBULATORY - MEDICINE [facility] Oct 27, 2024 09:30 AM AMBULATORY - MEDICINE [place] [facility] Nov 04, 2024 03:00 PM AMBULATORY - MEDICINE [place] [facility] [place] [facility] Nov 18, 2024 09:30 AM AMBULATORY - NONE [place] Social History: Smoking Status (Most current) and Tobacco Use (All prior to encounter date) This section includes the most current, and the historical, smoking and tobacco- related health factors from the [place] facility where the Encounter took place. Current Smoking Status This section includes the most current smoking, or tobacco-related health factor, from the [place] facility where the Encounter took place. Date/Time Current Smoking Status Comment Ana ity Mar 11, 2023 08:30 AM VA-TOBACCO FORMER USER [facility] Tobacco Use History This section includes a history of the smoking, or tobacco-related health factors, that were collected on or before the date of the Encounter. The data comes from the [place] facility where the Encounter took place. Date/Time Smoking Status/Tobacco Use Comment F acility Mar 11, 2023 08:30 AM VA-TOBACCO QUIT 15 YRS OR MORE [place] [facility] [place] [facility] Dec 27, 2020 02:00 PM VA-TOBACCO FORMER USER [place] [facility] [place] [facility] Dec 27, 2020 02:00 PM VA-TOBACCO QUIT 15 YRS OR MORE [facility] Advance Directives: All historical and current Section Date Range: From patient's date of to the date document was created. This section includes ALL of a patient's completed or amended [place] Advance and Rescinded Directives. The entries below indicate that a directive exists for the patient, but an actual copy is not included with this document. The data comes from all [place] facilities. Date Advance Directives Provider Source May [...] the Encounter. The data comes from all [place] treatment facilities. Date/Time Radiology Report Provider Source Apr 27, 2024 08:46 AM KNEE 3 VIEWS (RIGH T): EMERITA BAUTISTA [id number] -[id number] M Ex Date: APR 27, 2024@08:46 Req Phys: VENKATA MARES Pat Loc: CWM/SO/PACT EIGHT WH (Req'g Lo Img Loc: [facility]/BUILDING 1 Service: Unknown [place] [facility] [place] [facility] , (Case 62 COMPLETE) KNEE 1 OR 2 VIEWS (RIGHT) (RAD Detailed) CPT:39088 Proc Modifiers : BILATERAL EXAM Reason for Study: chronic pain (Case 63 COMPLETE) KNEES BILATERAL STANDING (RAD Detailed) CPT:78383 (Case 64 COMPLETE) KNEE 1 OR 2 VIEWS (LEFT) (RAD Detailed) CPT:29675 Proc Modifiers : BILATERAL EXAM Clinical History: Report Status: Verified Date Reported: APR 27, 2024 Date Verified: APR 27, 2024 Professor Of Business Administration E-Sig:/ES/TERESA BLOUNT JR Report: Study: AP weight-bearing [...] Primary Interpreting Staff: TERESA BLOUNT JR, Radiologist (Professor Of Business Administration) /TERESA AGUILAR JR [facility] Encounter Notes: All associated encounter notes This section contains the clinical notes associated to the Encounter. Date/Time Encounter Note(s) Provider Source May 25, 2024 12:00 AM NONVA NOTE: LOCAL TITLE: NON-VA OUTPATIENT NOTES STANDARD TITLE: NONVA NOTE DATE OF NOTE: MAY 25, 2024 ENTRY DATE: SEP 06, 2024@08:29:19 AUTHOR: DAV LEARY EXP COSIGNER: URGENCY: STATUS: COMPLETED VistA Imaging - Scanned Document SCANNED DOCUMENT SIGNATURE NOT REQUIRED Electronically Filed: 09/06/2024 by: DAV WALSH [facility]
--- OUTSIDE RECORDS SUMMARY | 2024-09-30 08:45 | XMS_ITS | Encounter Summary ---
Author Name [facility] [place] Address [address] [place] [address] Care Team Providers Care Substation Operator Chief Name Role Phone CHANI RHODES Primary Care [...] [facility] February 03, 2022 [id number] EMERITA BAUTISTA PATIENT [facility] MEDICAID MEDICAID MEDIC AID Oct 06, 2013 MEDICAI D [id number] EMERITA BAUTISTA PATIENT MEDICARE (WNR) MEDICARE (M) PART A Mar 06, 2015 PART A [id number] EMERITA BAUTISTA PATIENT MEDICARE (WNR) MEDICARE (M) PART B Mar 06, 2015 PART B [id number] EMERITA BAUTISTA PATIENT MEDICARE (WNR) MEDICARE (M) PART B Mar 06, 2015 PART B [id number] EMERITA BAUTISTA PATIENT MEDICARE (WNR) MEDICARE (M) PART A Mar 06, 2015 PART A [id number] EMERITA BAUTISTA PATIENT MEDICARE (WNR) MEDICARE (M) PART A Mar 06, 2015 PART A [id number] EMERITA BAUTISTA PATIENT MEDICARE (WNR) MEDICARE (M) PART B Mar 06, 2015 PART B [id number] EMERITA BAUTISTA PATIENT MEDICARE (WNR) MEDICARE (M) PART B Mar 06, 2015 PART B [id number] [phone] EMERITA BAUTISTA PATIENT Selected Encounter This section includes the information on record at [place] for the Encounter. Date/Time Encounter Type Encounter Description Reason Pro vider Source Aug 26, 2024 11:07 AM Outpatient Encounter PAIN CLINIC IHE Encounter Template Text not used by [place] Plan of Treatment: Future Appointments (+ 6 months) and Future Tests (+/- 45 days) The Plan of Treatment section includes future care activities for the patient [facility] [place] [facility]. This section includes future appointments and future orders which are active, pending or scheduled. Future Appointments This section includes appointments that were scheduled to occur 6 months from the date of the Encounter, up to a maximum of 20 appointments. The data comes from all [place] treatment facilities. Appointment Date/Time Appointment Type Appointme nt Facility Name Aug 27, 2024 10:00 AM AMBULATORY - MEDICINE [place] [facility] Sep 16, 2024 08:30 AM AMBULATORY - MEDICINE [facility] Sep 23, 2024 03:30 PM AMBULATORY - MEDICINE [place] [facility] Sep 24, 2024 12:00 PM AMBULATORY - MEDICINE [place] [facility] Sep 30, 2024 08:55 AM AMBULATORY - MEDICINE [place] [facility] [place] [facility] Oct 15, 2024 08:00 AM AMBULATORY - MEDICINE [facility] Oct 27, 2024 09:30 AM AMBULATORY - MEDICINE [place] [facility] Nov 04, 2024 03:00 PM AMBULATORY - MEDICINE [place] [facility] Nov 18, 2024 09:30 AM AMBULATORY - NONE [place] Nov 18, 2024 09:30 AM AM[place]ORY - [place]ICINE [place] [facility] Jan 20, 2025 10:00 AM [...] of theEncounter. The data comes from all [place] treatment facilities. Test Date/Time Test Type Test Details Facility Name Jul 14, 2024 04:18 PM Consult Order COMMUNITY CARE-BH PSYCHOTHERAPY [facility] Aug 25, 2024 01:01 PM Consult Order COMMUNITY CARE-ORTHO GENERAL [facility] Sep 16, 2024 08:39 PM Consult Order HEPATOLOGY SERVICES IF WHAV [facility] Sep 21, 2024 12:00 AM Laboratory - Chemistry Order ALCOHOL, ETHYL URINE PANEL URINE (DRUG) SP [place] [facility] [place] [facility] Sep 21, 2024 12:00 AM Laboratory - Chemistry Order FENTANYL SCREEN PANEL URINE (DRUG) SP [place] [facility] [place] [facility] Sep 21, 2024 12:00 AM Laboratory - Chemistry Order BENZODIAZEPINES SCREEN PANEL URINE (DRUG) SP [place] [facility] [place] [facility] Sep 21, 2024 12:00 AM Laboratory - Chemistry Order BUPRENORPHINE SCREEN PANEL URINE (DRUG) SP [place] [facility] [place] [facility] Sep 21, 2024 12:00 AM Laboratory - Chemistry Order CANNABINOIDS SCREEN PANEL URINE (DRUG) SP [facility] [place] [facility] Sep 21, 2024 12:00 AM Laboratory - Chemistry Order COCAINE SCREEN PANEL URINE (DRUG) SP [place] [facility] [place] [facility] Sep 21, 2024 12:00 AM Laboratory - Chemistry Order AMPHETAMINES SCREEN PANEL URINE (DRUG) SP [facility] [place] [facility] Sep 21, 2024 12:00 AM Laboratory - Chemistry Order METHADONE SCREEN URINE SP [place] [facility] [place] [facility] Sep 21, 2024 12:00 AM Laboratory - Chemistry Order OPIATES SCREEN PANEL URINE (DRUG) [facility] Sep 21, 2024 12:00 AM Laboratory - Chemistry Order OXYCODONE SCREEN PANEL URINE (DRUG) SP [facility] Lab Results: +/- 30 days of the encounter This section includes the Chemistry and Hematology Lab Results on record with [place] for the patient. Radiology Reports and Pathology Reports are provided separately, in subsequent sections. Lab Results This section contains the Chemistry/Hematology Results that were resulted 30 days before or 30 daysafter the date of the Encounter. Date/Time Source Result Type Result - Unit Interpretation Reference Range Comment Sep 07, 2024 09:20 AM [place] TSH Specimen Type: SERUM No comment entered. Ordering Provider: CHANI RHODES Report Released Date/Time: Sep 06, 2024 01:20 PM Reporting Lab: [address] [address] Performing Lab: [address] [address] TSH 1.86 u[IU]/mL 0.35-5.00 Sep 07, 2024 09:20 AM [place] PSA Specimen Type: SERUM No comment entered. Ordering Provider: CHANI RHODES Report Released Date/Time: Sep 06, 2024 01:20 PM Reporting Lab: [address] [address] Performing Lab: [address] [address] PSA 0.33 ng/mL 0.00-4.00 Sep 07, 2024 09:20 AM [place] HEMOGLOBIN A1C PANEL Specimen Type: BLOOD Comment: [...] Sep 06, 2024 01:20 PM Reporting Lab: [address] [address] Performing Lab: [address] [address] HEMOGLOBIN A1C 8.1 H 4.0-5.6 Sep 07, 2024 09:20 AM [place] LIPID PANEL FASTING Specimen Type: SERUM Comment: Hemolysis present analysis cannot be performed. Hemolysis present may falsly elevate Potassium Total and Direct Bili, Iron, AST, %Fe. Ordering Provider: CHANI RHODES Report Released Date/Time: Sep 06, 2024 01:20 PM Reporting Lab: [address] [address] Performing Lab: [address] [address] CHOLESTEROL 131 mg/dL TRIGLYCERIDE 219 mg/dL H 0-150 LDL calculated 55 mg/dL 0-129 CHOL/HDL 4.1 HDL CHOLESTEROL 32 mg/dL L 40-60 Sep 07, 2024 09:20 AM [place] BASIC METABOLIC PANEL (fasting) Specime n Type: SERUM Comment: Hemolysis present analysis cannot be performed. Hemolysis present may falsly elevate Potassium Total and Direct Bili, Iron, AST, %Fe. Ordering Provider: CHANI RHODES Report Released Date/Time: Sep 06, 2024 01:20 PM Reporting Lab: [address] [address] Performing Lab: [address] [address] UREA NITROGEN 15 mg/dL 7-25 GLUCOSE 176 mg/dL H 65-100 SODIUM 139 mmol/L 135-145 POTASSIUM 4.4 mmol/L 3.5-5.0 CHLORIDE 104 mmol/L 100-110 CO2 23 meq/L 20-30 CREATININE, Serum 1.15 mg/dL 0.50-1.40 eGFR(CKD-EPI 2020) 73 mL/min >60 Sep 07, 2024 09:20 AM [place] LIVER FUNCTION Specimen Type: SERUM Comment: Hemolysis present analysis cannot be performed. Hemolysis present may falsly elevate Potassium Total and Direct Bili, Iron, AST, %Fe. Ordering Provider: CHANI RHODES Report Released Date/Time: Sep 06, 2024 01:20 PM Reporting Lab: [address] [address] Performing Lab: [address] [address] PROTEIN,TOTAL 7.5 g/dL 6.0-8.3 ALBUMIN 3.9 g/dL 3.5-5.0 ALKALINE PHOSPHATASE 80 U/L 40-150 AST 34 U/L 5-34 ALT 56 U/L H BILIRUBIN, TOTAL comment mg/dL 0.2-1.2 BILIRUBIN, DIRECT comment mg/dL 0-0.5 Sep 07, 2024 09:20 AM [place] MICROALBUMIN CREATININE RATIO PANEL Spe cimen Type: URINE No comment entered. Ordering Provider: CHANI RHODES Report Released Date/Time: Sep 06, 2024 01:20 PM Reporting Lab: [address] [address] Performing Lab: [address] [address] MICROALBUMIN/C REATININE RATIO 18.2 mg/g 0-29.9 MICROALBUMIN,Q UANTITATIVE 0.9 mg/dL RR UNAVAIL CREATININE URINE 49.56 mg/dL Sep 07, 2024 09:20 AM [place] CBC AND DIFF (AUTO) Specimen Type: BLOOD No comment entered. Ordering Provider: CHANI RHODES Report Released Date/Time: Sep 06, 2024 01:20 PM Reporting Lab: [address] [address] Performing Lab: [address] [address] WBC 5.45 10*3/uL 4.50-11.00 RBC 5.45 10*6/uL [...] 0.0 0.0-0.0 NRBC, ABS 0.00 10*3/uL 0.00-0.00 Sep 07, 2024 09:20 AM [place] URINALYSIS Specimen Type: URINE Comment: If Glucose = >500 and Ketones are positive, please alert the Physician. Ordering Provider: CHANI RHODES Report Released Date/Time: Sep 06, 2024 01:20 PM Reporting Lab: [address] [address] Performing Lab: [address] [address] UA COLOR Colorless Yellow UA APPEARANCE Clear Clear UA GLUCOSE >1000 mg/dL Negative UA KETONES NEGATIVE mg/dL Negative UA BLOOD NEGATIVE mg/dL Negative UA PROTEIN NEGATIVE mg/dL Negative UA NITRITE NEGATIVE mg/dL Negative UA BILIRUBIN NEGATIVE mg/dL Negative UA SPECIFIC GRAVITY 1.023 H 1.016-1.022 UA pH 6.0 5.0-9.0 UA UROBILINOGEN Normal mg/dL <2.0 UA LEUKOCYTE NEGATIVE Negative Social History: Smoking Status (Most current) and Tobacco Use (All prior to encounter date) This section includes the most current, and the historical, smoking and tobacco- related health factors from the [place] facility where the Encounter took place. Current Smoking Status This section includes the most current smoking, or tobacco-related health factor, from the [place] facility where the Encounter took place. Date/Time Current Smoking Status Comment Facil tash Mar 11, 2023 08:30 AM VA-TOBACCO FORMER USER [facility] Tobacco Use History This section includes a history of the smoking, or tobacco-related health factors, that were collected on or before the date of the Encounter. The data comes from the [place] facility where the Encounter took place. Date/Time Smoking Status/Tobacco Use Comment F acility Mar 11, 2023 08:30 AM [facility] Dec 27, 2020 02:00 PM [facility] Dec 27, 2020 02:00 PM [place]-TO[place]AC[place] QUIT 15 YRS OR MORE [facility] Advance Directives: All historical and current Section Date Range: From patient's date of to the date document was created. This section includes ALL of a patient's completed or amended [place] Advance and Rescinded Directives. The entries below indicate that a directive exists for the patient, but an actual copy is not included with this document. The data comes from all [place] facilities. Date Advance Directives Provider Source May 23, 2011 ADVANCE DIRECTIVE JUD BROOKS Encounter Notes: All associated encounter notes This section contains the clinical notes associated to the Encounter. Date/Time Encounter Note(s) Provider Source Aug 26, 2024 11:07 AM TELEPHONE ENCOUNTE R NOTE: LOCAL TITLE: TELEPHONE NOTE/SPECIALTY CLINIC STANDARD TITLE: TELEPHONE ENCOUNTER NOTE DATE OF NOTE: AUG 26, 2024@11:07 ENTRY DATE: AUG 26, 2024@11:08:26 AUTHOR: NELLA CIFUENTES EXP COSIGNER: URGENCY: STATUS: COMPLETED Called and spoke with pt to remind them that they have a FTF appt with the Pain clinic on 08/27/2024 at 10am. New location was confirmed /lora/ NELLA CIFUENTES ADVANCED VM[employer] ADMINISTRATOR Signed: 08/26/2024 11:09 NELLA CIFUENTES [facility]
--- OUTSIDE RECORDS SUMMARY | 2024-09-30 08:45 | XMS_ITS | Encounter Summary ---
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 [facility] [place] Address [address] [place] [address] Care Team Providers Care Bill Clerk Name Role Phone CHANI RHODES Primary Care [...] to Policy Zayas [employer] D[employer] DENTAL [employer]URANCE [facility] February 03, 2022 [id number] EMERITA BAUTISTA PATIENT [facility] MEDICAID MEDICAID MEDIC AID Oct 06, 2013 MEDICAI D [id number] EMERITA BAUTISTA PATIENT MEDICARE (WNR) MEDICARE (M) PART A Mar 06, 2015 PART A [id number] [phone] EMERITA BAUTISTA PATIENT MEDICARE (WNR) MEDICARE (M) PART B Mar 06, 2015 PART B [id number] EMERITA BAUTISTA PATIENT MEDICARE (WNR) MEDICARE (M) PART B Mar 06, 2015 PART B [id number] EMERITA BAUTISTA PATIENT MEDICARE (WNR) MEDICARE (M) PART A Mar 06, 2015 PART A [id number] EMERITA BAUTISTA PATIENT MEDICARE (WNR) MEDICARE (M) PART A Mar 06, 2015 PART A [id number] EMERITA BAUTISTA PATIENT MEDICARE (WNR) MEDICARE (M) PART B Mar 06, 2015 PART B [id number] [facility] EMERITA BAUTISTA PATIENT MEDICARE (WNR) MEDICARE (M) PART B Mar 06, 2015 PART B [id number] [phone] EMERITA BAUTISTA PATIENT Selected Encounter This section includes the information on record at [place] for the Encounter. Date/Time Encounter Type Encounter Description Reason Provider Source Aug 27, 2024 10:00 AM OFFICE O/P EST HI 40 MIN PAIN CLINIC ICD-10-CM M54.50 Low back pain, unspecified KUPFERSCHMID,S ETH B E Encounter Template Text not used by [place] Assessments - Encounter Diagnoses This section includes the primary and secondary diagnoses documented for the Encounter. Date/Time Primary/Secondary Diagnosis Diagnosis Name Provider Source Aug 27, 2024 02:20 PM PRIMARY Low back pain, unspecified KUPFERSCHMID,S ETH B [place] [facility] [place] [facility] Aug 27, 2024 02:20 PM SECONDARY Major depressive disorder, recurrent, moderate KUPFERSCHMID,S ETH B [facility] [place] [facility] Aug 27, 2024 02:20 PM SECONDARY Pain in left knee KUPFERSCHMID,S ETH B [facility] [place] [facility] Aug 27, 2024 02:20 PM SECONDARY Pain in right knee KUPFERSCHMID,S ETH B [facility] [place] [facility] Aug 27, 2024 02:20 PM SECONDARY Primary osteoarthritis, unspecified site KUPFERSCHMID,S ETH B [facility] [place] [facility] Plan of Treatment: Future Appointments (+ 6 months) and Future Tests (+/- 45 days) The Plan of Treatment section includes future care activities for the patient from all VA treatmentfacilities. This section includes future appointments and future orders which are active, pending or scheduled. Future Appointments This section includes appointments that were scheduled to occur 6 months from the date of the Encounter, up to a maximum of 20 appointments. The data comes from all [place] treatment [facility]. Appointment Date/Time Appointment Type Appointme nt Facility Name Sep 16, 2024 08:30 AM AMBULATORY - MEDICINE [facility] Sep 23, 2024 03:30 PM AMBULATORY - MEDICINE [facility] [place] [facility] Sep 24, 2024 12:00 PM AMBULATORY - MEDICINE [facility] [place] [facility] Sep 30, 2024 08:55 AM AMBULATORY - MEDICINE [place] [facility] [place] [facility] Oct 15, 2024 08:00 AM AMBULATORY - MEDICINE [facility] Oct 27, 2024 09:30 AM AMBULATORY - MEDICINE [place] [facility] [place] [facility] Nov 04, 2024 03:00 PM AMBULATORY - MEDICINE [place] [facility] [place] [facility] Nov 18, 2024 09:30 AM AMBULATORY - [facility] Nov 18, 2024 09:30 AM [facility] Jan 20, 2025 10:00 AM AMBULATORY - MEDICINE [facility] Active, Pending, and Scheduled Orders This section includes a listing of several types of active, pending, and scheduled orders, including clinic medications orders, diagnostic test orders, procedure orders and consult orders; where the start date of the order is 45 days before the date of the Encounter or 45 days after the date of theEncounter. The data comes from all [facility]. Test Date/Time Test Type Test Details Facility Name Jul 14, 2024 04:18 PM Consult Order [facility]-BH PSYCHOTHERAPY Cons Associate Professor Of English's [facility] Aug 25, 2024 01:01 PM Consult Order [facility]ARE-ORTHO GENERAL Cons Associate Professor Of English's [facility] Sep 16, 2024 08:39 PM Consult [facility] Of English[facility] Sep 21, 2024 12:00 AM Laboratory - Chemistry Order ALCOHOL, ETHYL URINE PANEL URINE (DRUG) [facility] [place] [facility] Sep 21, 2024 12:00 AM Laboratory - Chemistry Order FENTANYL SCREEN PANEL URINE (DRUG) [facility] [place] [facility] Sep 21, 2024 12:00 AM Laboratory - Chemistry Order BENZODIAZEPINES SCREEN PANEL URINE (DRUG) [facility] Sep 21, 2024 12:00 AM Laboratory - Chemistry Order BUPRENORPHINE SCREEN PANEL URINE (DRUG) [facility] [place] [facility] Sep 21, 2024 12:00 AM Laboratory - Chemistry Order CANNABINOIDS SCREEN PANEL URINE (DRUG) [facility] [place] [facility] Sep 21, 2024 12:00 AM Laboratory - Chemistry Order COCAINE SCREEN PANEL URINE (DRUG) [facility] [place] [facility] Sep 21, 2024 12:00 AM Laboratory - Chemistry Order AMPHETAMINES SCREEN PANEL URINE (DRUG) [facility] [place] [facility] Sep 21, 2024 12:00 AM Laboratory - Chemistry Order METHADONE SCREEN URINE [facility] [place] [facility] Sep 21, 2024 12:00 AM Laboratory - Chemistry Order OPIATES SCREEN PANEL URINE (DRUG) [facility] [place] [facility] Sep 21, 2024 12:00 AM Laboratory - Chemistry Order OXYCODONE SCREEN PANEL URINE (DRUG) [facility] Lab Results: +/- 30 days of the encounter This section includes the Chemistry and Hematology Lab Results on record with [place] for the patient. Radiology Reports and Pathology Reports are provided separately, in subsequent sections. Lab Results This section contains the Chemistry/Hematology Results that were resulted 30 days before or 30 daysafter the date of the Encounter. Date/Time Source Result Type Result - Unit Interpretation Reference Range Comment Sep 07, 2024 09:20 AM [place] TSH Specimen Type: SERUM No comment entered. Ordering Provider: CHANI RHODES Report Released Date/Time: Sep 06, 2024 01:20 PM Reporting [facility]: [facility] [address] [address] Performing Lab: [address] [address] TSH 1.86 u[IU]/mL 0.35-5.00 Sep 07, 2024 09:20 AM [place] PSA Specimen Type: SERUM No comment entered. Ordering Provider: CHANI RHODES Report Released Date/Time: Sep 06, 2024 01:20 PM Reporting Lab: [address] [address] Performing Lab: [address] [address] PSA 0.33 ng/mL 0.00-4.00 Sep 07, 2024 09:20 AM [place] HEMOGLOBIN A1C PANEL Specimen Type: BLOOD Comment: [...] Sep 06, 2024 01:20 PM Reporting Lab: [address] [address] Performing Lab: [address] HEMOGLOBIN A1C 8.1 H 4.0-5.6 Sep 07, 2024 09:20 AM [place] LIPID PANEL FASTING Specimen Type: SERUM Comment: Hemolysis present analysis cannot be performed. Hemolysis present may falsly elevate Potassium Total and Direct Bili, Iron, AST, %Fe. Ordering Provider: CHANI RHODES Report Released Date/Time: Sep 06, 2024 01:20 PM Reporting Lab: [address] [address] Performing Lab: [address] [address] CHOLESTEROL 131 mg/dL TRIGLYCERIDE 219 mg/dL H 0-150 LDL calculated 55 mg/dL 0-129 CHOL/HDL 4.1 HDL CHOLESTEROL 32 mg/dL L 40-60 Sep 07, 2024 09:20 AM [place] BASIC METABOLIC PANEL (fasting) Specime n Type: SERUM Comment: Hemolysis present analysis cannot be performed. Hemolysis present may falsly elevate Potassium Total and Direct Bili, Iron, AST, %Fe. Ordering Provider: CHANI RHODES Report Released Date/Time: Sep 06, 2024 01:20 PM Reporting Lab: [address] [address] Performing Lab: [address] [address] UREA NITROGEN 15 mg/dL 7-25 GLUCOSE 176 mg/dL H 65-100 SODIUM 139 mmol/L 135-145 POTASSIUM 4.4 mmol/L 3.5-5.0 CHLORIDE 104 mmol/L 100-110 CO2 23 meq/L 20-30 CREATININE, Serum 1.15 mg/dL 0.50-1.40 eGFR(CKD-EPI 2020) 73 mL/min >60 Sep 07, 2024 09:20 AM [place] LIVER FUNCTION Specimen Type: SERUM Comment: Hemolysis present analysis cannot be performed. Hemolysis present may falsly elevate Potassium Total and Direct Bili, Iron, AST, %Fe. Ordering Provider: CHANI RHODES Report Released Date/Time: Sep 06, 2024 01:20 PM Reporting Lab: [address] [address] Performing Lab: [address] [address] PROTEIN,TOTAL 7.5 g/dL 6.0-8.3 ALBUMIN 3.9 g/dL 3.5-5.0 ALKALINE PHOSPHATASE 80 U/L 40-150 AST 34 U/L 5-34 ALT 56 U/L H BILIRUBIN, TOTAL comment mg/dL 0.2-1.2 BILIRUBIN, DIRECT comment mg/dL 0-0.5 Sep 07, 2024 09:20 AM [place] MICROALBUMIN CREATININE RATIO PANEL Spe cimen Type: URINE No comment entered. Ordering Provider: CHANI RHODES Report Released Date/Time: Sep 06, 2024 01:20 PM Reporting Lab: [address] [address] Performing Lab: [address] [address] MICROALBUMIN/C REATININE RATIO 18.2 mg/g 0-29.9 MICROALBUMIN,Q UANTITATIVE 0.9 mg/dL RR UNAVAIL CREATININE URINE 49.56 mg/dL Sep 07, 2024 09:20 AM [place] CBC AND DIFF (AUTO) Specimen Type: BLOOD No comment entered. Ordering Provider: CHANI RHODES Report Released Date/Time: Sep 06, 2024 01:20 PM Reporting Lab: [facility] [address] [address] Performing Lab: [facility] [address] [facility] [address] WBC 5.45 10*3/uL 4.50-11.00 RBC 5.45 10*6/uL [...] 10*3/uL 0.00-0.00 Sep 07, 2024 09:20 AM [place] URINALYSIS Specimen Type: URINE Comment: If Glucose = >500 and Ketones are positive, please alert the Physician. Ordering Provider: CHANI RHODES Report Released Date/Time: Sep 06, 2024 01:20 PM Reporting Lab: [address] [address] Performing Lab: [address] [address] UA COLOR Colorless Yellow UA APPEARANCE Clear [...] and tobacco- related health factors from the [place] facility where the Encounter took place. Current Smoking Status This section includes the most current smoking, or tobacco-related health factor, from the [place] facility where the Encounter took place. Date/Time Current Smoking Status Comment Facil ity Mar 11, 2023 08:30 AM [place]-TOBACCO FORMER USER [facility] Tobacco Use History This section includes a history of the smoking, or tobacco-related health factors, that were collected on or before the date of the Encounter. The data comes from the [place] facility where the Encounter took place. Date/Time Smoking Status/Tobacco Use Comment F acility Mar 11, 2023 08:30 AM [place]-TOBACCO QUIT 15 YRS OR MORE [facility] Dec 27, 2020 02:00 PM [place]-TOBACCO FORMER USER [facility] Dec 27, 2020 02:00 PM [place]-TOBACCO QUIT 15 YRS OR MORE [facility] Advance Directives: All historical and current Section Date Range: From patient's date of to the date document was created. This section includes ALL of a patient's completed or amended [place] Advance and Rescinded Directives. The entries below indicate that a directive exists for the patient, but an actual copy is not included with this document. The data comes from all [place] facilities. Date Advance Directives Provider Source May 23, 2011 ADVANCE DIRECTIVE JUD BROOKS Encounter Notes: All associated encounter notes This section contains the clinical notes associated to the Encounter. Date/Time Encounter Note(s) Provider Source Aug 27, 2024 10:23 AM ACCOUNTING OF DISCLOSURES NOTE: LOCAL TITLE: STATE PRESCRIPTION DRUG MONITORING PROGRAM STANDARD TITLE: ACCOUNTING OF DISCLOSURES NOTE DATE OF NOTE: AUG 27, 2024@10:23:17 ENTRY DATE: AUG 27, 2024@10:23:17 AUTHOR: SABA MORA EXP COSIGNER: URGENCY: STATUS: [...] information was shared with the PDMP Appriss [place]. No prescription(s) for controlled substances outside the [facility] were found in the last 90 days. /lora/ SABA MORA MD PHYSICIAN Signed: 08/27/2024 10:23 SABA MORA [place] [facility] [place] [facility] Aug 27, 2024 09:56 AM PAIN MEDICINE OUTPATIENT NOTE: LOCAL TITLE: PAIN CLINIC NOTE STANDARD TITLE: PAIN MEDICINE OUTPATIENT NOTE DATE OF NOTE: AUG 27, 2024@09:56 ENTRY DATE: AUG 27, 2024@09:56:14 AUTHOR: SABA MORA EXP COSIGNER: URGENCY: STATUS: COMPLETED CURRENT ======= Was not able to see [facility] due to outstanding bill. Lost job, putting in legal claim. Started seeing a therapist at [facility]. I had to. I was snapping at my and kids. I tried the patches. They did not help. I think I am too far gone. He spoke about his father who questioned Laughlin's choices (joining the service, injuries). Says he critical voice is always with him. Describes a loving mother and stepfather. 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. 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 FAMILY HISTORY SUBSTANCE USE HISTORY Tobacco: None ETOH: None; stopped 20 years ago. Marijuana: None. Illicit drugs: Past, including pills. = ASSESSMENT and PLAN = 58 year old [employer] Laughlin, 70% service-connected for musculoskeletal injuries, with DDD and DJD affecting his low back and right knee; he has mid-back and neck pain also. Struggling due to knee and hip pain that is affecting his relationships. PAIN -Increase Butrans to 10 mcg/hour -Continue Vicodin bid -Continue gabapentin with dose increase. Stop cyclobenzaprine qhs while using other medications. Conflict about treatment with opioids because , who works at [employer], is opposed. Getting counseling, which is a step forward for Laughlin. ORTHO Messaged with community care to assist with getting seen. MOOD, QUALITY of LIFE Pain diminishess his enjoyment of family, he is not able to be active, he would like to retire due to pain. His mood is depressed because of pain. and I formulated the plan through shared medical-decision making. repeated the plan back to me and had no further questions at end of appointment. APPOINTMENT LENGTH: 45 minutes FOLLOW-UP: 4-6 weeks 08/27/2024 10:00 CWM/NO/PAIN MD CLINIC 09/30/2024 09:00 CWM/SO/PHARM/PACT 2 05/03/2025 10:00 NHM/OPTOMETRY/WELSH/ MEDICATION and RECONCILIATION Active Outpatient Medications (including Supplies): Active Outpatient Medications Status 1) ACETAMINOPHEN 325MG TAB TAKE TWO TABLETS BY MOUTH ACTIVE THREE TIMES DAILY NEEDED FOR PAIN 2) ACETAMINOPHEN 500MG TAB TAKE TWO TABLETS BY MOUTH ACTIVE THREE TIMES DAILY NEEDED FOR PAIN 3) ATORVASTATIN CALCIUM 80MG TAB TAKE ONE [...] MOUTH ONCE DAILY FOR VITAMIN SUPPLEMENTATION 7) CYCLOBENZAPRINE HCL 10MG TAB TAKE ONE TABLET BY MOUTH ACTIVE TWICE DAILY NEEDED FOR MUSCLE SPASM 8) EMPAGLIFLOZIN 25MG TAB TAKE ONE TABLET BY MOUTH ONCE ACTIVE DAILY 9) GABAPENTIN 300MG CAP TAKE ONE CAPSULE BY MOUTH THREE ACTIVE TIMES A DAY FOR NERVE PAIN 10) GLUCOSE 4GM CHEW TAB CHEW FOUR TABLETS BY MOUTH ACTIVE NEEDED FOR LOW BLOOD SUGAR 11) GLUCOSE SENSOR DEXCOM G7 USE 1 SENSOR DIRECTED ACTIVE EVERY 10 DAYS 12) INSULIN,ASPART(EQV-NOVLG)100UN/ ML FLXPEN INJECT 27 ACTIVE UNITS SUBCUTANEOUSLY THREE TIMES A DAY BEFORE MEALS INJECT 15 MINUTES BEFORE MEALS IF MEAL SKIPPED SKIP THE DOSE 13) INSULIN,GLARGINE-YFGN 100UNIT/ML PEN 3ML INJECT 46 ACTIVE UNITS SUBCUTANEOUSLY TWICE DAILY 14) LIDOCAINE 5% PATCH APPLY 1 PATCH TOPICALLY ONCE DAILY ACTIVE NEEDED (LEAVE PATCH ON FOR 12 HOURS, THEN REMOVE PATCH) 15) LISINOPRIL 5MG TAB TAKE ONE TABLET BY MOUTH ONCE ACTIVE DAILY TO CONTROL BLOOD PRESSURE 16) METFORMIN HCL 750MG 24HR SA TAB TAKE ONE TABLET BY ACTIVE MOUTH ONCE DAILY 17) SEMAGLUTIDE 0.25MG/0.375ML INJ PEN 3ML INJECT 0.5MG ACTIVE SUBCUTANEOUSLY ONCE A WEEK FOR TYPE 2 DIABETES MELLITUS ACTIVE PROBLEMS Active problems - Computerized Problem List is the source for the followin. Pain of bilateral knee joints 2. Abdominal pain 3. CLBP - chronic low back pain 4. Cervical radiculopathy 5. HTN - Hypertension ([facility] [id number]) 6. Diabetes Mellitus Type 2 ([facility] [id number]) 7. Allergic Rhinitis ([facility] [id number]) 8. Vitamin D Deficiency ([facility] [id number]) 9. Hyperlipidemia ([facility] [id number]) 10. Fatty liver 11. Fatigue 12. Edema of lower leg 13. Back pain 14. History of cholecystectomy 15. H/O: osteoarthritis 16. Depression 17. Onychomycosis of toenails 18. Knee pain (SNOMED CT [id number]) 19. Osteoarthritis 20. Foot pain 21. Diabetic neuropathy 22. Erectile dysfunction 23. Type 2 diabetes mellitus 24. Flat Feet * 25. Depressive disorder (SNOMED CT 86261343) 26. History of male erectile disorder (SNOMED CT 839509811) 27. Disorder of urethra 28. PCP: Gm: [phone] 29. Knee: arthralgia 30. Ankle: arthralgia 31. Appendectomy When Done for Indicated Purpose at Time of Other Major Procedur 32. Hearing loss 33. Tinnitus 34. Arthritis, Traumatic, Primary Appointment length includes time with Laughlin, completing clinical reminders, reviewing relevant information in EMR, review of PDMP, ordering appropriate tests, prescribing medications, coordinating care, and completing the medical record. Quotations may not be exact and are intended to the effect of what the Laughlin was saying. /lora/ SABA MORA MD PHYSICIAN Signed: 08/27/2024 14:20 SABA MORA [place] [facility]
--- OUTSIDE RECORDS SUMMARY | 2024-09-30 08:45 | XMS_ITS | Encounter Summary ---
Author Name [facility] [place] Address [address] [place] [address] Care Team Providers Care Garment Manufacturer Name Role Phone CHANI RHODES Primary Care [...] [facility] February 03, 2022 [id number] EMERITA BAUTISTA PATIENT [facility] [address] MEDICAID MEDICAID MEDIC AID Oct 06, 2013 MEDICAI D [id number] EMERITA BAUTISTA PATIENT MEDICARE (WNR) MEDICARE (M) PART A Mar 06, 2015 PART A [id number] EMERITA BAUTISTA PATIENT MEDICARE (WNR) MEDICARE (M) PART B Mar 06, 2015 PART B [id number] EMERITA BAUTISTA PATIENT MEDICARE (WNR) MEDICARE (M) PART B Mar 06, 2015 PART B [id number] EMERITA BAUTISTA PATIENT MEDICARE (WNR) MEDICARE (M) PART A Mar 06, 2015 PART A [id number] [phone] EMERITA BAUTISTA PATIENT MEDICARE (WNR) MEDICARE (M) PART B Mar 06, 2015 PART B [id number] [phone] EMERITA BAUTISTA PATIENT MEDICARE (WNR) MEDICARE (M) PART B Mar 06, 2015 PART B [id number] [phone] EMERITA BAUTISTA PATIENT MEDICARE (WNR) MEDICARE (M) PART A Mar 06, 2015 PART A [id number] [phone] EMERITA BAUTISTA PATIENT Selected Encounter This section includes the information on record at [place] for the Encounter. Date/Time Encounter Type Encounter Description Reason Pro vider Source Sep 06, 2024 01:18 PM Outpatient Encounter PRIMARY CARE/MEDICINE IHE Encounter Template Text not used by [place] Plan of Treatment: Future Appointments (+ 6 months) and Future Tests (+/- 45 days) The Plan of Treatment section includes future care activities for the patient [facility] [place] [facility] This section includes future appointments and future orders which are active, pending or scheduled. Future Appointments This section includes appointments that were scheduled to occur 6 months from the date of the Encounter, up to a maximum of 20 appointments. The data comes from all [place] treatment facilities. Appointment Date/Time Appointment Type Appointme nt Facility Name Sep 16, 2024 08:30 AM AMBULATORY - MEDICINE [facility] Sep 23, 2024 03:30 PM AMBULATORY - MEDICINE [place] [facility] [place] [place] [facility] Sep 24, 2024 12:00 PM AMBULATORY - MEDICINE [place] [facility] [facility] Sep 30, 2024 08:55 AM AMBULATORY - MEDICINE [place] [facility] [facility] Oct 15, 2024 08:00 AM [facility] Oct 27, 2024 09:30 AM AMBULATORY - MEDICINE [place] [facility] [facility] Nov 04, 2024 03:00 PM AMBULATORY - MEDICINE [place] [facility] [facility] Nov 18, 2024 09:30 AM AM[facility]ATORY - NONE [place] Nov 18, 2024 09:30 AM [facility] [place]IC[place] [facility] Jan 20, 2025 10:00 AM AMBULATORY - MEDICINE [facility] Active, Pending, and Scheduled Orders This section includes a listing of several types of active, pending, and scheduled orders, including clinic medications orders, diagnostic test orders, procedure orders and consult orders; where the start date of the order is 45 days before the date of the Encounter or 45 days after the date of theEncounter. The data comes from all [place] treatment facilities. Test Date/Time Test Type Test Details Facility Name Aug 25, 2024 01:01 PM Consult Order COMMUNITY CARE-ORTHO GENERAL Cons Sociology Faculty Member's [facility] Sep 16, 2024 08:39 PM Consult Order HEPATOLOGY SERVICES [facility] WHAV Cons Sociology Faculty Member's [facility] Sep 21, 2024 12:00 AM Laboratory - Chemistry Order AMPHETAMINES SCREEN PANEL URINE (DRUG) SP [place] [facility] [place] [facility] Sep 21, 2024 12:00 AM Laboratory - Chemistry Order ALCOHOL, ETHYL URINE PANEL URINE (DRUG) [facility] Sep 21, 2024 12:00 AM Laboratory - Chemistry Order FENTANYL SCREEN PANEL URINE (DRUG) SP [place] [facility] [place] [place] [facility] Sep 21, 2024 12:00 AM Laboratory - Chemistry Order BENZODIAZEPINES SCREEN PANEL URINE (DRUG) SP [place] [facility] [place] [facility] Sep 21, 2024 12:00 AM Laboratory - Chemistry Order BUPRENORPHINE SCREEN PANEL URINE (DRUG) SP [place] [facility] [place] [facility] Sep 21, 2024 12:00 AM Laboratory - Chemistry Order CANNABINOIDS SCREEN PANEL URINE (DRUG) SP [place] [facility] [place] [facility] Sep 21, 2024 12:00 AM Laboratory - Chemistry Order COCAINE SCREEN PANEL URINE (DRUG) SP [place] [facility] [place] [place] [facility] Sep 21, 2024 12:00 AM Laboratory - Chemistry Order METHADONE SCREEN URINE SP [place] [facility] [place] [facility] Sep 21, 2024 12:00 AM Laboratory - Chemistry Order OPIATES SCREEN PANEL URINE (DRUG) SP [place] [facility] [place] [facility] Sep 21, 2024 12:00 AM Laboratory - Chemistry Order OXYCODONE SCREEN PANEL [facility] Lab Results: +/- 30 days of the encounter This section includes the Chemistry and Hematology Lab Results on record with [place] for the patient. Radiology Reports and Pathology Reports are provided separately, in subsequent sections. Lab Results This section contains the Chemistry/Hematology Results that were resulted 30 days before or 30 daysafter the date of the Encounter. Date/Time Source Result Type Result - Unit Interpretation Reference Range Comment Sep 07, 2024 09:20 AM [facility] TSH Specimen Type: SERUM No comment entered. Ordering Provider: CHANI RHODES Report Released Date/Time: Sep 06, 2024 01:20 PM Reporting [facility] [address] [address] Performing Lab: [address] [address] TSH 1.86 u[IU]/mL 0.35-5.00 Sep 07, 2024 09:20 AM [place] PSA Specimen Type: SERUM No comment entered. Ordering Provider: CHANI RHODES Report Released Date/Time: Sep 06, 2024 01:20 PM Reporting Lab: [address] [address] Performing Lab: [address] [address] PSA 0.33 ng/mL 0.00-4.00 Sep 07, 2024 09:20 AM [place] LIPID PANEL FASTING Specimen Type: SERUM Comment: Hemolysis present analysis cannot be performed. Hemolysis present may falsly elevate Potassium Total and Direct Bili, Iron, AST, %Fe. Ordering Provider: CHANI RHODES Report Released Date/Time: Sep 06, 2024 01:20 PM Reporting Lab: [address] [address] Performing Lab: [address] [address] CHOLESTEROL 131 mg/dL TRIGLYCERIDE 219 mg/dL H 0-150 LDL calculated 55 mg/dL 0-129 CHOL/HDL 4.1 HDL CHOLESTEROL 32 mg/dL L 40-60 Sep 07, 2024 09:20 AM [place] HEMOGLOBIN A1C PANEL Specimen Type: BLOOD Comment: Values obtained from A1C measurements can vary. For atypical A1C assays, a reported value of 7.0 could actually be between 6.72 and 7.28 if measured by a reference method. A reported value of 9.0 could actually be between 8.73 and 9.27. Ref: http://www.ngs p.org/CAPdata. asp Ordering Provider: CHANI ROHDES Report Released Date/Time: Sep 06, 2024 01:20 PM Reporting Lab: [address] [address] Performing Lab: [address] [address] HEMOGLOBIN A1C 8.1 H 4.0-5.6 Sep 07, 2024 09:20 AM [place] LIVER FUNCTION Specimen Type: SERUM Comment: Hemolysis present analysis cannot be performed. Hemolysis present may falsly elevate Potassium Total and Direct Bili, Iron, AST, %Fe. Ordering Provider: CHANI RHODES Report Released Date/Time: Sep 06, 2024 01:20 PM Reporting Lab: [address] [address] Performing Lab: [address] [address] PROTEIN,TOTAL 7.5 g/dL 6.0-8.3 ALBUMIN 3.9 g/dL 3.5-5.0 ALKALINE PHOSPHATASE 80 U/L 40-150 AST 34 U/L 5-34 ALT 56 U/L H BILIRUBIN, TOTAL comment mg/dL 0.2-1.2 BILIRUBIN, DIRECT comment mg/dL 0-0.5 Sep 07, 2024 09:20 AM [place] BASIC METABOLIC PANEL (fasting) Specime n Type: SERUM Comment: Hemolysis present analysis cannot be performed. Hemolysis present may falsly elevate Potassium Total and Direct Bili, Iron, AST, %Fe. Ordering Provider: CHANI RHODES Report Released Date/Time: Sep 06, 2024 01:20 PM Reporting Lab: [address] [address] Performing Lab: [address] [address] UREA NITROGEN 15 mg/dL 7-25 GLUCOSE 176 mg/dL H 65-100 SODIUM 139 mmol/L 135-145 POTASSIUM 4.4 mmol/L 3.5-5.0 CHLORIDE 104 mmol/L 100-110 CO2 23 meq/L 20-30 CREATININE, Serum 1.15 mg/dL 0.50-1.40 eGFR(CKD-EPI 2020) 73 mL/min >60 Sep 07, 2024 09:20 AM [place] MICROALBUMIN CREATININE RATIO PANEL Spe cimen Type: URINE No comment entered. Ordering Provider: CHANI RHODES Report Released Date/Time: Sep 06, 2024 01:20 PM Reporting Lab: [address] [address] Performing Lab: [address] [address] MICROALBUMIN/C REATININE RATIO 18.2 mg/g 0-29.9 MICROALBUMIN,Q UANTITATIVE 0.9 mg/dL RR UNAVAIL CREATININE URINE 49.56 mg/dL Sep 07, 2024 09:20 AM [place] URINALYSIS Specimen Type: URINE Comment: If Glucose = >500 and Ketones are positive, please alert the Physician. Ordering Provider: CHANI RHODES Report Released Date/Time: Sep 06, 2024 01:20 PM Reporting Lab: [address] [address] Performing Lab: [address] [address] UA COLOR Colorless Yellow UA APPEARANCE Clear Clear UA GLUCOSE >1000 mg/dL Negative UA KETONES NEGATIVE mg/dL Negative UA BLOOD NEGATIVE mg/dL Negative UA PROTEIN NEGATIVE mg/dL Negative UA NITRITE NEGATIVE mg/dL Negative UA BILIRUBIN NEGATIVE mg/dL Negative UA SPECIFIC GRAVITY 1.023 H 1.016-1.022 UA pH 6.0 5.0-9.0 UA UROBILINOGEN Normal mg/dL <2.0 UA LEUKOCYTE NEGATIVE Negative Sep 07, 2024 09:20 AM [place] CBC AND DIFF (AUTO) Specimen Type: BLOOD No comment entered. Ordering Provider: CHANI RHODES Report Released Date/Time: Sep 06, 2024 01:20 PM Reporting Lab: [address] [address] Performing Lab: [address] [place] [address] WBC 5.45 10*3/uL 4.50-11.00 RBC 5.45 10*6/uL [...] and tobacco- related health factors from the [place] facility where the Encounter took place. Current Smoking Status This section includes the most current smoking, or tobacco-related health factor, from the [place] facility where the Encounter took place. Date/Time Current Smoking Status Comment Facil ity Mar 11, 2023 08:30 AM VA-TOBACCO QUIT 15 YRS OR MORE [place] [facility] Tobacco Use History This section includes a history of the smoking, or tobacco-related health factors, that were collected on or before the date of the Encounter. The data comes from the [place] facility where the Encounter took place. Date/Time Smoking Status/Tobacco Use Comment F acility Mar 11, 2023 08:30 AM [place]-TOBACCO QUIT 15 YRS OR MORE [place] [facility] [place] [facility] Dec 27, 2020 02:00 PM [place]-TOBACCO FORMER USER [place] [facility] [facility] Dec 27, 2020 02:00 PM [place]-TOBACCO QUIT 15 YRS OR MORE [facility] Advance Directives: All historical and current Section Date Range: From patient's date of to the date document was created. This section includes ALL of a patient's completed or amended [place] Advance and Rescinded Directives. The entries below [...] the Encounter. Date/Time Encounter Note(s) Provider Source Sep 06, 2024 01:18 PM MEDICATION MGT NOT E: LOCAL TITLE: OUTPATIENT MEDICATION REQUEST STANDARD TITLE: MEDICATION MGT NOTE DATE OF NOTE: SEP 06, 2024@13:18 ENTRY DATE: SEP 06, 2024@13:18:24 AUTHOR: MANDO COOLEY EXP COSIGNER: URGENCY: STATUS: COMPLETED OUTPATIENT MEDICATION REQUEST Has ADDENDA Medication Request Date of Request: Sep Is this a New Medication? No 1) EMPAGLIFLOZIN 25MG TAB [id number] ACTIVE 90 10/17/2023 04/19/2024 (0) SIG: TAKE ONE TABLET BY MOUTH ONCE DAILY Indication: FOR TYPE 2 DIABETES MELLITUS Provider: SHANDA BECK PLEASE RENEW AND MAIL /lora/ MANDO COOLEY LPN Licensed Practical Nurse Signed: 09/06/2024 13:19 Receipt Acknowledged By: 09/06/2024 17:53 /bucky BECK CLINICAL GEOPHYSICAL OBSERVER 09/06/2024 ADDENDUM STATUS: COMPLETED RX RENEWED FOR MAIL eGFR 68ml/min on 03/2024 ; pt will be seen on 09/30 will repeat bmp then /lora/ SHANDA BECK CLINICAL GEOPHYSICAL OBSERVER Signed: 09/06/2024 17:53 MANDO COOLEY [facility]
--- OUTSIDE RECORDS SUMMARY | 2024-09-30 08:45 | XMS_ITS | Encounter Summary ---
Author Name [facility] [place] Address [address] [place] [address] Care Team Providers Care Shoe Cleaner Name Role Phone CHANI RHODES Primary Care [...] [facility] February 03, 2022 [id number] EMERITA BAUTISTA PATIENT [facility] MEDICAID MEDICAID MEDIC AID Oct 06, 2013 MEDICAI D [id number] EMERITA BAUTISTA PATIENT MEDICARE (WNR) MEDICARE (M) PART A Mar 06, 2015 PART A [id number] EMERITA BAUTISTA PATIENT MEDICARE (WNR) MEDICARE (M) PART B Mar 06, 2015 PART B [id number] EMERITA BAUTISTA PATIENT MEDICARE (WNR) MEDICARE (M) PART B Mar 06, 2015 PART B [id number] [phone] EMERITA BAUTISTA PATIENT MEDICARE (WNR) MEDICARE (M) PART A Mar 06, 2015 PART A [id number] EMERITA BAUTISTA PATIENT MEDICARE (WNR) MEDICARE (M) PART B Mar 06, 2015 PART B [id number] [phone] EMERITA BAUTISTA PATIENT MEDICARE (WNR) MEDICARE (M) PART A Mar 06, 2015 PART A [id number] EMERITA BAUTISTA PATIENT MEDICARE (WNR) MEDICARE (M) PART B Mar 06, 2015 PART B [id number] EMERITA BAUTISTA PATIENT Selected Encounter This section includes the information on record at [place] for the Encounter. Date/Time Encounter Type Encounter Description Reason Pro vider Source Aug 20, 2024 11:47 AM Outpatient Encounter PRIMARY CARE/MEDICINE IHE Encounter Template Text not used by [place] Plan of Treatment: Future Appointments (+ 6 months) and Future Tests (+/- 45 days) The Plan of Treatment section includes future care activities for the patient [facility] [place] [facility] This section [...] 24, 2024 11:00 AM AMBULATORY - PSYCHIATRY [place] [facility] [place] [facility] Aug 24, 2024 03:00 PM [facility] Aug 27, 2024 10:00 AM AMBULATORY - MEDICINE [place] [facility] Sep 16, 2024 08:30 AM AMBULATORY - MEDICINE [facility] Sep 23, 2024 03:30 PM AMBULATORY - MEDICINE [place] [facility] Sep 24, 2024 12:00 PM AMBULATORY - MEDICINE [place] [facility] [place] [facility] Sep 30, 2024 08:55 AM AMBULATORY - MEDICINE [place] [facility] [place] [facility] Oct 15, 2024 08:00 AM AMBULATORY - MEDICINE [facility] Oct 27, 2024 09:30 AM AMBULATORY - MEDICINE [place] [facility] Nov 04, 2024 03:00 PM AMBULATORY - MEDICINE [place] [facility] [place] [place] [facility] Nov 18, 2024 09:30 AM AMBULATORY - NONE [place] Nov 18, 2024 09:30 AM AMBUL[place]ORY - [place]ICINE [place] [facility] Jan 20, 2025 10:00 AM [...] of theEncounter. The data comes from all [place] treatment facilities. Test Date/Time Test Type Test Details Facility Name Jul 14, 2024 04:18 PM Consult Order COMMUNITY CARE-BH PSYCHOTHERAPY Cons Manager [facility] Aug 25, 2024 01:01 PM Consult Order COMMUNITY CARE-ORTHO GENERAL [facility] Manager [employer] Sep 16, 2024 08:39 PM Consult Order HEPATOLOGY SERVICES [facility] Cons Manager [employer] Sep 21, 2024 12:00 AM Laboratory - Chemistry Order ALCOHOL, ETHYL URINE PANEL URINE (DRUG) SP [facility] [place] [facility] Sep 21, 2024 12:00 AM Laboratory - Chemistry Order AMPHETAMINES SCREEN PANEL URINE (DRUG) SP [facility] [place] [facility] Sep 21, 2024 12:00 AM Laboratory - Chemistry Order FENTANYL SCREEN PANEL URINE (DRUG) SP [facility] [place] [place] [facility] Sep 21, 2024 12:00 AM Laboratory - Chemistry Order BENZODIAZEPINES SCREEN PANEL URINE (DRUG) SP [facility] [place] [place] [facility] Sep 21, 2024 12:00 AM Laboratory - Chemistry Order BUPRENORPHINE SCREEN PANEL URINE (DRUG) SP [facility] [place] [place] [facility] Sep 21, 2024 12:00 AM Laboratory - Chemistry Order CANNABINOIDS SCREEN PANEL URINE (DRUG) SP [facility] [place] [place] [facility] Sep 21, 2024 12:00 AM Laboratory - Chemistry Order COCAINE SCREEN PANEL URINE (DRUG) SP [facility] [place] [place] [facility] Sep 21, 2024 12:00 AM Laboratory - Chemistry Order OPIATES SCREEN PANEL URINE (DRUG) SP [facility] [place] [place] [facility] Sep 21, 2024 12:00 AM Laboratory - Chemistry Order METHADONE SCREEN URINE SP [facility] Sep 21, 2024 12:00 AM Laboratory - Chemistry Order OXYCODONE SCREEN PANEL URINE (DRUG) SP [facility] Lab Results: +/- 30 days of the encounter This section includes the Chemistry and Hematology Lab Results on record with [place] for the patient. Radiology Reports and Pathology Reports are provided separately, in subsequent sections. Lab Results This section contains the Chemistry/Hematology Results that were resulted 30 days before or 30 daysafter the date of the Encounter. Date/Time Source Result Type Result - Unit Interpretation Reference Range Comment Sep 07, 2024 09:20 AM [place] TSH Specimen Type: SERUM No comment entered. Ordering Provider: CHANI RHODES Report Released Date/Time: Sep 06, 2024 01:20 PM Reporting Lab: [address] [address] Performing Lab: [address] [address] TSH 1.86 u[IU]/mL 0.35-5.00 Sep 07, 2024 09:20 AM [place] PSA Specimen Type: SERUM No comment entered. Ordering Provider: CHANI RHODES Report Released Date/Time: Sep 06, 2024 01:20 PM Reporting Lab: [address] [address] Performing Lab: [address] [address] PSA 0.33 ng/mL 0.00-4.00 Sep 07, 2024 09:20 AM [place] LIPID PANEL FASTING Specimen Type: SERUM Comment: Hemolysis present analysis cannot be performed. Hemolysis present may falsly elevate Potassium Total and Direct Bili, Iron, AST, %Fe. Ordering Provider: CHANI RHODES Report Released Date/Time: Sep 06, 2024 01:20 PM Reporting Lab: [address] [address] Performing Lab: [address] [address] CHOLESTEROL 131 mg/dL TRIGLYCERIDE 219 mg/dL H 0-150 LDL calculated 55 mg/dL 0-129 CHOL/HDL 4.1 HDL CHOLESTEROL 32 mg/dL L 40-60 Sep 07, 2024 09:20 AM [place] HEMOGLOBIN A1C PANEL Specimen Type: BLOOD Comment: [...] 06, 2024 01:20 PM Reporting Lab: [address] [address] Performing Lab: [address] [address] HEMOGLOBIN A1C 8.1 H 4.0-5.6 Sep 07, 2024 09:20 AM [place] BASIC METABOLIC PANEL (fasting) Specime n Type: SERUM Comment: Hemolysis present analysis cannot be performed. Hemolysis present may falsly elevate Potassium Total and Direct Bili, Iron, AST, %Fe. Ordering Provider: CHANI RHODES Report Released Date/Time: Sep 06, 2024 01:20 PM Reporting Lab: [address] [address] Performing Lab: [address] [address] UREA NITROGEN 15 mg/dL 7-25 GLUCOSE 176 mg/dL H 65-100 SODIUM 139 mmol/L 135-145 POTASSIUM 4.4 mmol/L 3.5-5.0 CHLORIDE 104 mmol/L 100-110 CO2 23 meq/L 20-30 CREATININE, Serum 1.15 mg/dL 0.50-1.40 eGFR(CKD-EPI 2020) 73 mL/min >60 Sep 07, 2024 09:20 AM [place] LIVER FUNCTION Specimen Type: SERUM Comment: Hemolysis present analysis cannot be performed. Hemolysis present may falsly elevate Potassium Total and Direct Bili, Iron, AST, %Fe. Ordering Provider: CHANI RHODES Report Released Date/Time: Sep 06, 2024 01:20 PM Reporting Lab: [address] [address] Performing Lab: [address] [address] PROTEIN,TOTAL 7.5 g/dL 6.0-8.3 ALBUMIN 3.9 g/dL 3.5-5.0 ALKALINE PHOSPHATASE 80 U/L 40-150 AST 34 U/L 5-34 ALT 56 U/L H BILIRUBIN, TOTAL comment mg/dL 0.2-1.2 BILIRUBIN, DIRECT comment mg/dL 0-0.5 Sep 07, 2024 09:20 AM [place] MICROALBUMIN CREATININE RATIO PANEL Spe cimen Type: URINE No comment entered. Ordering Provider: CHANI RHODES Report Released Date/Time: Sep 06, 2024 01:20 PM Reporting Lab: [address] [address] Performing Lab: [address] [address] MICROALBUMIN/C REATININE RATIO 18.2 mg/g 0-29.9 MICROALBUMIN,Q UANTITATIVE 0.9 mg/dL RR UNAVAIL CREATININE URINE 49.56 mg/dL Sep 07, 2024 09:20 AM [facility] URINALYSIS Specimen Type: URINE Comment: If Glucose = >500 and Ketones are positive, please alert the Physician. Ordering Provider: CHANI RHODES Report Released Date/Time: Sep 06, 2024 01:20 PM Reporting Lab: [address] [address] Performing Lab: [address] [address] UA COLOR Colorless Yellow UA APPEARANCE Clear Clear UA GLUCOSE >1000 mg/dL Negative UA KETONES NEGATIVE mg/dL Negative UA BLOOD NEGATIVE mg/dL Negative UA PROTEIN NEGATIVE mg/dL Negative UA NITRITE NEGATIVE mg/dL Negative UA BILIRUBIN NEGATIVE mg/dL Negative UA SPECIFIC GRAVITY 1.023 H 1.016-1.022 UA pH 6.0 5.0-9.0 UA UROBILINOGEN Normal mg/dL <2.0 UA LEUKOCYTE NEGATIVE Negative Sep 07, 2024 09:20 AM [place] CBC AND DIFF (AUTO) Specimen Type: BLOOD No comment entered. Ordering Provider: CHANI RHODES Report Released Date/Time: Sep 06, 2024 01:20 PM Reporting Lab: [facility] [address] [facility] [address] Performing Lab: [facility] [address] [facility] [address] WBC 5.45 10*3/uL 4.50-11.00 RBC 5.45 10*6/uL [...] 11, 2023 08:30 AM VA-TOBACCO FORMER USER [facility] Tobacco Use History This section includes a history of the smoking, or tobacco-related health factors, that were collected on or before the date of the Encounter. The data comes from the [place] facility where the Encounter took place. Date/Time Smoking Status/Tobacco Use Comment F acility Mar 11, 2023 08:30 AM VA-TOBACCO QUIT 15 YRS OR MORE [facility] Dec 27, 2020 02:00 PM VA-TOBACCO FORMER US[facility] Dec 27, 2020 02:00 PM [place]-TOBACCO QUIT 15 YRS OR MORE [facility] Advance Directives: All historical and [...] Encounter. Date/Time Encounter Note(s) Provider Source Aug 20, 2024 11:47 AM ADMINISTRATIVE NOT E: LOCAL TITLE: ADMINISTRATIVE NOTE STANDARD TITLE: ADMINISTRATIVE NOTE DATE OF NOTE: AUG 20, 2024@11:47 ENTRY DATE: AUG 20, 2024@11:47:16 AUTHOR: NEHEMIAH MORENO EXP COSIGNER: URGENCY: STATUS: COMPLETED ADMINISTRATIVE NOTE Has ADDENDA Ob Gyn spoke to jens regarding a billing issue. Suyapa is requesting a call from PACT team to request a new Ortho consult to a different provider than [facility]. [place] also has questions regarding other services. Phone number on file confirmed, please call to discuss. /lora/ NEHEMIAH MORENO ADVANCED STONE LAYOUT MARKER Signed: 08/20/2024 11:47 Receipt Acknowledged By: 08/24/2024 14:05 /es/ NIMCO SYKES RN-BC REGISTERED NURSE 08/20/2024 12:12 /lora/ JASMYNE SCHMITZ CERTIFIED NURSE PRACTITIONER 08/24/2024 ADDENDUM STATUS: COMPLETED Called [place] and he requested that his [facility] ortho consult be reentered for his bilateral knees. Author advised that previous consult was discontinued due to [facility] not being able to reach [place] to schedule appt for initial viait. /lora/ NIMCO SYKES RN-BC REGISTERED NURSE Signed: 08/24/2024 14:21 NEHEMIAH MORENO
--- OUTSIDE RECORDS SUMMARY | 2024-09-30 08:45 | XMS_ITS | Encounter Summary ---
Author Name [facility] [place] [place] [facility] [place] Address [address] [place] [address] Care Team Providers Care Line Appliance Assembler Name Role Phone CHANI RHODES Primary Care [...] [facility] H[facility] February 03, 2022 [id number] EMERITA BAUTISTA PATIENT [facility] MEDICAID MEDICAID MEDIC AID Oct 06, 2013 MEDICAI D [id number] EMERITA BAUTISTA PATIENT MEDICARE (WNR) MEDICARE (M) PART A Mar 06, 2015 PART A [id number] [phone] EMERITA BAUTISTA PATIENT MEDICARE (WNR) MEDICARE (M) PART B Mar 06, 2015 PART B [id number] [phone] EMERITA BAUTISTA PATIENT MEDICARE (WNR) MEDICARE (M) PART B Mar 06, 2015 PART B [id number] EMERITA BAUTISTA PATIENT MEDICARE (WNR) MEDICARE (M) PART A Mar 06, 2015 PART A [id number] EMERITA BAUTISTA PATIENT MEDICARE (WNR) MEDICARE (M) PART B Mar 06, 2015 PART B [id number] EMERITA BAUTISTA PATIENT MEDICARE (WNR) MEDICARE (M) PART A Mar 06, 2015 PART A [id number] EMERITA BAUTISTA PATIENT MEDICARE (WNR) MEDICARE (M) PART B Mar 06, 2015 PART B [id number] [phone] EMERITA BAUTISTA PATIENT Selected Encounter This section includes the information on record at [place] for the Encounter. Date/Time Encounter Type Encounter Description Reason Pro vider Source Sep 06, 2024 12:56 PM Outpatient Encounter PRIMARY CARE/MEDICINE IHE Encounter Template Text not used by [place] Plan of Treatment: Future Appointments (+ 6 months) and Future Tests (+/- 45 days) The Plan of Treatment section includes future care activities for the patient from all [place] [facility]. This section includes future appointments and future orders which are active, pending or scheduled. Future Appointments This section includes appointments that were scheduled to occur 6 months from the date of the Encounter, up to a maximum of 20 appointments. The data comes from all [place] treatment facilities. Appointment Date/Time Appointment Type Appointme nt Facility Name Sep 16, 2024 08:30 AM AMBULATORY - MEDICINE [facility] Sep 23, 2024 03:30 PM [place] [facility] [facility] [place] [facility] Sep 24, 2024 12:00 PM [place] [facility] [facility] Sep 30, 2024 08:55 AM [place] [facility] [facility] Oct 15, 2024 08:00 AM [facility] Oct 27, 2024 09:30 AM [place] [facility] [facility] Nov 04, 2024 03:00 PM [place] [facility] [facility] Nov 18, 2024 09:30 AM AMBULATORY - NONE [facility] Nov 18, 2024 09:30 AM [facility]ORY - [facility] Jan 20, 2025 10:00 AM AMBULATORY - MEDICINE [facility] Active, Pending, and Scheduled Orders This section includes a listing of several types of active, pending, and scheduled orders, including clinic medications orders, diagnostic test orders, procedure orders and consult orders; where the start date of the order is 45 days before the date of the Encounter or 45 days after the date of theEncounter. The data comes from all [place] treatment facilities. Test Date/Time Test Type Test Details Facility Name Aug 25, 2024 01:01 PM Consult Order [facility] Drug [facility] Sep 16, 2024 08:39 PM Consult Order HEPATOLOGY SERVICES [facility] Cons Drug Coordinator[facility] Sep 21, 2024 12:00 AM Laboratory - Chemistry Order AMPHETAMINES SCREEN PANEL URINE (DRUG) [place] [facility] Sep 21, 2024 12:00 AM Laboratory - Chemistry Order ALCOHOL, ETHYL URINE PANEL URINE (DRUG) [place] [facility] Sep 21, 2024 12:00 AM Laboratory - Chemistry Order FENTANYL SCREEN PANEL URINE (DRUG) [place] [facility] [facility] [facility] Sep 21, 2024 12:00 AM Laboratory - Chemistry Order BENZODIAZEPINES SCREEN PANEL URINE (DRUG) [place] [facility] [facility] [facility] Sep 21, 2024 12:00 AM Laboratory - Chemistry Order BUPRENORPHINE SCREEN PANEL URINE (DRUG) [place] [facility] Sep 21, 2024 12:00 AM Laboratory - Chemistry Order CANNABINOIDS SCREEN PANEL URINE (DRUG) [place] [facility] [facility] Sep 21, 2024 12:00 AM Laboratory - Chemistry Order COCAINE SCREEN PANEL URINE (DRUG) [place] [facility] Sep 21, 2024 12:00 AM Laboratory - Chemistry Order METHADONE SCREEN URINE [place] [facility] Sep 21, 2024 12:00 AM Laboratory - Chemistry Order OXYCODONE SCREEN PANEL URINE (DRUG) [place] [facility] Sep 21, 2024 12:00 AM Laboratory - Chemistry Order OPIATES SCREEN PANEL URINE (DRUG) [facility] Lab Results: +/- 30 days of the encounter This section includes the Chemistry and Hematology Lab Results on record with [place] for the patient. Radiology Reports and Pathology Reports are provided separately, in subsequent sections. Lab Results This section contains the Chemistry/Hematology Results that were resulted 30 days before or 30 daysafter the date of the Encounter. Date/Time Source Result Type Result - Unit Interpretation Reference Range Comment Sep 07, 2024 09:20 AM [place] TSH Specimen Type: SERUM No comment entered. Ordering Provider: CHANI RHODES Report Released Date/Time: Sep 06, 2024 01:20 PM [facility] [address] [address] Performing Lab: [address] [address] TSH 1.86 u[IU]/mL 0.35-5.00 Sep 07, 2024 09:20 AM [place] PSA Specimen Type: SERUM No comment entered. Ordering Provider: CHANI RHODES Report Released Date/Time: Sep 06, 2024 01:20 PM Reporting Lab: [address] [address] Performing Lab: [address] [address] PSA 0.33 ng/mL 0.00-4.00 Sep 07, 2024 09:20 AM [place] LIPID PANEL FASTING Specimen Type: SERUM Comment: Hemolysis present analysis cannot be performed. Hemolysis present may falsly elevate Potassium Total and Direct Bili, Iron, AST, %Fe. Ordering Provider: CHANI RHODES Report Released Date/Time: Sep 06, 2024 01:20 PM Reporting Lab: [address] [address] Performing Lab: [address] [address] CHOLESTEROL 131 mg/dL TRIGLYCERIDE 219 mg/dL H 0-150 LDL calculated 55 mg/dL 0-129 CHOL/HDL 4.1 HDL CHOLESTEROL 32 mg/dL L 40-60 Sep 07, 2024 09:20 AM [place] HEMOGLOBIN A1C PANEL Specimen Type: BLOOD Comment: [...] Sep 06, 2024 01:20 PM Reporting Lab: [address] [address] Performing Lab: [address] [address] HEMOGLOBIN A1C 8.1 H 4.0-5.6 Sep 07, 2024 09:20 AM [place] LIVER FUNCTION Specimen Type: SERUM Comment: Hemolysis present analysis cannot be performed. Hemolysis present may falsly elevate Potassium Total and Direct Bili, Iron, AST, %Fe. Ordering Provider: CHANI RHODES Report Released Date/Time: Sep 06, 2024 01:20 PM Reporting Lab: [address] [address] Performing Lab: [address] [address] PROTEIN,TOTAL 7.5 g/dL 6.0-8.3 ALBUMIN 3.9 g/dL 3.5-5.0 ALKALINE PHOSPHATASE 80 U/L 40-150 AST 34 U/L 5-34 ALT 56 U/L H BILIRUBIN, TOTAL comment mg/dL 0.2-1.2 BILIRUBIN, DIRECT comment mg/dL 0-0.5 Sep 07, 2024 09:20 AM [place] BASIC METABOLIC PANEL (fasting) Specime n Type: SERUM Comment: Hemolysis present analysis cannot be performed. Hemolysis present may falsly elevate Potassium Total and Direct Bili, Iron, AST, %Fe. Ordering Provider: CHANI RHODES Report Released Date/Time: Sep 06, 2024 01:20 PM Reporting Lab: [address] [address] Performing Lab: [address] [address] UREA NITROGEN 15 mg/dL 7-25 GLUCOSE 176 mg/dL H 65-100 SODIUM 139 mmol/L 135-145 POTASSIUM 4.4 mmol/L 3.5-5.0 CHLORIDE 104 mmol/L 100-110 CO2 23 meq/L 20-30 CREATININE, Serum 1.15 mg/dL 0.50-1.40 eGFR(CKD-EPI 2020) 73 mL/min >60 Sep 07, 2024 09:20 AM [place] MICROALBUMIN CREATININE RATIO PANEL Spe cimen Type: URINE No comment entered. Ordering Provider: CHANI RHODES Report Released Date/Time: Sep 06, 2024 01:20 PM Reporting Lab: [address] [address] Performing Lab: [address] [address] MICROALBUMIN/C REATININE RATIO 18.2 mg/g 0-29.9 MICROALBUMIN,Q UANTITATIVE 0.9 mg/dL RR UNAVAIL CREATININE URINE 49.56 mg/dL Sep 07, 2024 09:20 AM [place] URINALYSIS Specimen Type: URINE Comment: If Glucose = >500 and Ketones are positive, please alert the Physician. Ordering Provider: CHANI RHODES Report Released Date/Time: Sep 06, 2024 01:20 PM Reporting Lab: [address] [address] Performing Lab: [address] [address] UA COLOR Colorless Yellow UA APPEARANCE Clear Clear UA GLUCOSE >1000 mg/dL Negative UA KETONES NEGATIVE mg/dL Negative UA BLOOD NEGATIVE mg/dL Negative UA PROTEIN NEGATIVE mg/dL Negative UA NITRITE NEGATIVE mg/dL Negative UA BILIRUBIN NEGATIVE mg/dL Negative UA SPECIFIC GRAVITY 1.023 H 1.016-1.022 UA pH 6.0 5.0-9.0 UA UROBILINOGEN Normal mg/dL <2.0 UA LEUKOCYTE NEGATIVE Negative Sep 07, 2024 09:20 AM [place] CBC AND DIFF (AUTO) Specimen Type: BLOOD No comment entered. Ordering Provider: CHANI RHODES Report Released Date/Time: Sep 06, 2024 01:20 PM Reporting Lab: [address] [address] Performing Lab: [address] [place] [place] [address] WBC 5.45 10*3/uL 4.50-11.00 RBC 5.45 10*6/uL [...] and tobacco- related health factors from the [place] facility where the Encounter took place. Current Smoking Status This section includes the most current smoking, or tobacco-related health factor, from the [place] facility where the Encounter took place. Date/Time Current Smoking Status Comment Facil ity Mar 11, 2023 08:30 AM VA-TOBACCO FORMER USER [place] [facility] Tobacco Use History This section includes a history of the smoking, or tobacco-related health factors, that were collected on or before the date of the Encounter. The data comes from the [place] facility where the Encounter took place. Date/Time Smoking Status/Tobacco Use Comment F acility Mar 11, 2023 08:30 AM VA-TOBACCO QUIT 15 YRS OR MORE [place] [facility] [facility] [facility] Dec 27, 2020 02:00 PM VA-TOBACCO FORMER USER [place] [facility] [facility] [facility] Dec 27, 2020 02:00 PM [place] QUIT 15 YRS OR MORE [place] [facility] Advance Directives: All historical and current Section Date Range: From patient's date of to the date document was created. This section includes ALL of a patient's completed or amended [place] Advance and Rescinded Directives. The entries below indicate that a directive exists for the patient, but an actual copy is not included with this document. The data comes from all [place] facilities. Date Advance Directives Provider Source May 23, 2011 ADVANCE DIRECTIVE JUD BROOKS Encounter Notes: All associated encounter notes This section contains the clinical notes associated to the Encounter. Date/Time Encounter Note(s) Provider Source Sep 06, 2024 12:59 PM ADDENDUM: LOCAL TITLE: Addendum STANDARD TITLE: ADDENDUM DATE OF NOTE: SEP 06, 2024@12:59:19 ENTRY DATE: SEP 06, 2024@12:59:20 AUTHOR: JONNIE VIZCAINO COSIGNER: URGENCY: STATUS: COMPLETED WOULD LIKE TO MEDICATION MAILED TO HIM AT MAILING ADDRESS. /lora/ CLAUDE VIZCAINO ADVANCED LOCKER ROOM MANAGER Signed: 09/06/2024 12:59 Receipt Acknowledged By: 09/06/2024 14:04 /es/ NIMCO SYKES RN-BC REGISTERED NURSE 09/06/2024 13:18 /es/ MANDO COOLEY LPN Licensed Practical Nurse --- Original Document --- 09/06/24 WALK-IN NOTE PRIMARY CARE (T): <====Click to Start Advanced Medical Support presents to the Primary Care clinic with the following request: [ X ]Medication Renewal/Refill [ ]Consultation with Team RN [ ]Symptoms [ ]Other The states they are: [ ]Waiting [ X ]Not Waiting No Walk in visit scheduled with PACT Nurse [ X ] At this encounter the 's demographics were verified. [ X ] At this encounter the 's Insurance information was verified. [ X ] At this encounter the below scheduled visits for the [place] were discussed and appointment reminder card was offered. IS REQUESTING MEDICATION REFILL FOR EMPAGLIFLOZIN. ALSO STATED HE HAS AN UPCOMING APPT WITH JANET YANEZ ON 09/30/2024. Future appointments: 09/24/2024 12:00 CWM/NO/VVC/PAIN MD CLINIC 09/30/2024 08:55 COM CARE-ORTHO GEN 09/30/2024 09:00 CWM/SO/PHARM/PACT 2 05/03/2025 10:00 NHM/OPTOMETRY/WELSH/ /es/ CLAUDE VIZCAINO ADVANCED LOCKER ROOM MANAGER Signed: 09/06/2024 12:59 CLAUDE VIZCAINO [place] Sep 06, 2024 12:56 PM PRIMARY CARE NOTE: LOCAL TITLE: WALK-IN NOTE PRIMARY CARE (T) STANDARD TITLE: PRIMARY CARE NOTE DATE OF NOTE: SEP 06, 2024@12:56 ENTRY DATE: SEP 06, 2024@12:57:29 AUTHOR: JONNIE VIZCAINO COSIGNER: URGENCY: STATUS: COMPLETED WALK-IN NOTE PRIMARY CARE (T) Has ADDENDA <====Click to Start Advanced Medical Support [place] presents to the Primary Care clinic with the following request: [ X ]Medication Renewal/Refill [ ]Consultation with Team RN [ ]Symptoms [ ]Other The [place] states they are: [ ]Waiting [ X ]Not Waiting No Walk in visit scheduled with PACT Nurse [ X ] At this encounter the 's demographics were verified. [ X ] At this encounter the 's Insurance information was verified. [ X ] At this encounter the below scheduled visits for the [place] were discussed and appointment reminder card was offered. IS REQUESTING MEDICATION REFILL FOR EMPAGLIFLOZIN. ALSO STATED HE HAS AN UPCOMING APPT WITH BILLYRENATO BEAU ON 09/30/2024. Future appointments: 09/24/2024 12:00 CWM/NO/VVC/PAIN MD CLINIC 09/30/2024 08:55 COM CARE-ORTHO GEN 09/30/2024 09:00 CWM/SO/PHARM/PACT 2 05/03/2025 10:00 NHM/OPTOMETRY/WELSH/ /es/ CLAUDE VIZCAINO ADVANCED LOCKER ROOM MANAGER Signed: 09/06/2024 12:59 09/06/2024 ADDENDUM STATUS: COMPLETED WOULD LIKE TO MEDICATION MAILED TO HIM AT MAILING ADDRESS. /lora/ CLAUDE VIZCAINO ADVANCED LOCKER ROOM MANAGER Signed: 09/06/2024 12:59 Receipt Acknowledged By: * AWAITING SIGNATURE * BHARGAV WELCH * AWAITING SIGNATURE * MANDO COOLEY,CLAUDE WRAY
--- OUTSIDE RECORDS SUMMARY | 2024-09-30 08:45 | XMS_ITS | Encounter Summary ---
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 [place] Organization [facility] [place] Address [address] [place] [id number] Care Team Providers Care Lead Operator Name Role Phone CHANI RHODES Primary [...] [facility] February 03, 2022 [id number] EMERITA BAUTISTA PATIENT [facility] MEDICAID MEDICAID MEDIC AID Oct 06, 2013 MEDICAI D [id number] EMERITA BAUTISTA PATIENT MEDICARE (WNR) MEDICARE (M) PART A Mar 06, 2015 PART A [id number] EMERITA BAUTISTA PATIENT MEDICARE (WNR) MEDICARE (M) PART B Mar 06, 2015 PART B [id number] EMERITA BAUTISTA PATIENT MEDICARE (WNR) MEDICARE (M) PART B Mar 06, 2015 PART B [id number] EMERITA BAUTISTA PATIENT MEDICARE (WNR) MEDICARE (M) PART A Mar 06, 2015 PART A [id number] EMERITA BAUTISTA PATIENT MEDICARE (WNR) MEDICARE (M) PART B Mar 06, 2015 PART B [id number] EMERITA BAUTISTA PATIENT MEDICARE (WNR) MEDICARE (M) PART B Mar 06, 2015 PART B [id number] [phone] EMERITA BAUTISTA PATIENT MEDICARE (WNR) MEDICARE (M) PART A Mar 06, 2015 PART A [id number] EMERITA BAUTISTA PATIENT Selected Encounter This section includes the information on record at [place] for the Encounter. Date/Time Encounter Type Encounter Description Reason Provider Source Aug 24, 2024 03:00 PM THERAPEUTIC EXERCISES PHYSICAL THERAPY ICD-10-CM M25.569 Pain in unspecified knee LEIDY DANIEL Behzad Encounter Template Text not used by [place] Assessments - Encounter Diagnoses This section includes the primary and secondary diagnoses documented for the Encounter. Date/Time Primary/Secondary Diagnosis Diagnosis Name Provider Source Aug 24, 2024 04:24 PM PRIMARY Pain in unspecified knee BRICE DANIEL [...] - MEDICINE [facility] Sep 16, 2024 08:30 AM AMBULATORY - MEDICINE [facility] Sep 23, 2024 03:30 PM AMBULATORY - MEDICINE [facility] Sep 24, 2024 12:00 PM AMBULATORY - MEDICINE [facility] Sep 30, 2024 08:55 AM AMBULATORY - MEDICINE [facility] Oct 15, 2024 08:00 AM [facility]ORY - MEDICINE [facility] Oct 27, 2024 09:30 AM [facility]ATORY - MEDICINE [facility] [place] [facility] Nov 04, 2024 03:00 PM AMBULATORY - MEDICINE [facility] [place] Nov 18, 2024 09:30 AM AM[facility]ORY - NONE [facility] Nov 18, 2024 09:30 AM [facility] - [facility]IC[facility] [place] [facility] Jan 20, 2025 10:00 AM AMBULATORY - [...] of theEncounter. The data comes from all [place] treatment facilities. Test Date/Time Test Type Test Details Facility Name Jul 14, 2024 04:18 PM Consult Order COMMUNITY CARE-BH PSYCHOTHERAPY [facility] Aug 25, 2024 01:01 PM Consult Order COMMUNITY CARE-ORTHO GENERAL [facility] Sep 16, 2024 08:39 PM Consult Order HEPATOLOGY SERVICES [facility] Sep 21, 2024 12:00 AM Laboratory - Chemistry Order ALCOHOL, ETHYL URINE PANEL URINE (DRUG) SP [facility] Sep 21, 2024 12:00 AM Laboratory - Chemistry Order AMPHETAMINES SCREEN PANEL URINE (DRUG) SP [facility] [place] Sep 21, 2024 12:00 AM Laboratory - Chemistry Order FENTANYL SCREEN PANEL URINE (DRUG) SP [facility] [place] Sep 21, 2024 12:00 AM Laboratory - Chemistry Order BENZODIAZEPINES SCREEN PANEL URINE (DRUG) SP [facility] [place] Sep 21, 2024 12:00 AM Laboratory - Chemistry Order BUPRENORPHINE SCREEN PANEL URINE (DRUG) SP [facility] Sep 21, 2024 12:00 AM Laboratory - Chemistry Order CANNABINOIDS SCREEN PANEL URINE (DRUG) SP [facility] [place] Sep 21, 2024 12:00 AM Laboratory - Chemistry Order COCAINE SCREEN PANEL URINE (DRUG) SP [facility] [place] Sep 21, 2024 12:00 AM Laboratory - Chemistry Order METHADONE SCREEN URINE SP [facility] Sep 21, 2024 12:00 AM Laboratory - Chemistry Order OPIATES SCREEN PANEL URINE (DRUG) SP [facility] Sep 21, 2024 12:00 AM Laboratory - Chemistry Order OXYCODONE SCREEN PANEL URINE (DRUG) SP [facility] Lab Results: +/- 30 days of the [...] Range Comment Sep 07, 2024 09:20 AM [facility] TSH Specimen Type: SERUM No comment entered. Ordering Provider: CHANI RHODES Report Released Date/Time: Sep 06, 2024 01:20 PM Reporting Lab: [address] [address] Performing Lab: [address] [address] TSH 1.86 u[IU]/mL 0.35-5.00 Sep 07, 2024 09:20 AM [facility] PSA Specimen Type: SERUM No comment entered. Ordering Provider: CHANI RHODES Report Released Date/Time: Sep 06, 2024 01:20 PM Reporting Lab: [address] [address] Performing Lab: [address] [address] PSA 0.33 ng/mL 0.00-4.00 Sep 07, 2024 09:20 AM [facility] LIPID PANEL FASTING Specimen Type: SERUM Comment: Hemolysis present analysis cannot be performed. Hemolysis present may falsly elevate Potassium Total and Direct Bili, Iron, AST, %Fe. Ordering Provider: CHANI RHODES Report Released Date/Time: Sep 06, 2024 01:20 PM Reporting Lab: [address] [address] Performing Lab: [facility] [address] CHOLESTEROL 131 mg/dL TRIGLYCERIDE 219 mg/dL H 0-150 LDL calculated 55 mg/dL 0-129 CHOL/HDL 4.1 HDL CHOLESTEROL 32 mg/dL L 40-60 Sep 07, 2024 09:20 AM [facility] HEMOGLOBIN A1C PANEL Specimen Type: BLOOD Comment: [...] Sep 06, 2024 01:20 PM Reporting Lab: [address] [address] Performing Lab: [address] [address] HEMOGLOBIN A1C 8.1 H 4.0-5.6 Sep 07, 2024 09:20 AM [facility] LIVER FUNCTION Specimen Type: SERUM Comment: Hemolysis present analysis cannot be performed. Hemolysis present may falsly elevate Potassium Total and Direct Bili, Iron, AST, %Fe. Ordering Provider: CHANI RHODES Report Released Date/Time: Sep 06, 2024 01:20 PM Reporting Lab: [address] [address] Performing Lab: [address] [address] PROTEIN,TOTAL 7.5 g/dL 6.0-8.3 ALBUMIN 3.9 g/dL 3.5-5.0 ALKALINE PHOSPHATASE 80 U/L 40-150 AST 34 U/L 5-34 ALT 56 U/L H BILIRUBIN, TOTAL comment mg/dL 0.2-1.2 BILIRUBIN, DIRECT comment mg/dL 0-0.5 Sep 07, 2024 09:20 AM [facility] BASIC METABOLIC PANEL (fasting) Specime n Type: SERUM Comment: Hemolysis present analysis cannot be performed. Hemolysis present may falsly elevate Potassium Total and Direct Bili, Iron, AST, %Fe. Ordering Provider: CHANI RHODES Report Released Date/Time: Sep 06, 2024 01:20 PM Reporting Lab: [address] [address] Performing Lab: [address] [address] UREA NITROGEN 15 mg/dL 7-25 GLUCOSE 176 mg/dL H 65-100 SODIUM 139 mmol/L 135-145 POTASSIUM 4.4 mmol/L 3.5-5.0 CHLORIDE 104 mmol/L 100-110 CO2 23 meq/L 20-30 CREATININE, Serum 1.15 mg/dL 0.50-1.40 eGFR(CKD-EPI 2020) 73 mL/min >60 Sep 07, 2024 09:20 AM [facility] MICROALBUMIN CREATININE RATIO PANEL Spe cimen Type: URINE No comment entered. Ordering Provider: CHANI RHODES Report Released Date/Time: Sep 06, 2024 01:20 PM Reporting Lab: [address] [address] Performing Lab: [address] [address] MICROALBUMIN/C REATININE RATIO 18.2 mg/g 0-29.9 MICROALBUMIN,Q UANTITATIVE 0.9 mg/dL RR UNAVAIL CREATININE URINE 49.56 mg/dL Sep 07, 2024 09:20 AM [facility] URINALYSIS Specimen Type: URINE Comment: If Glucose = >500 and Ketones are positive, please alert the Physician. Ordering Provider: CHANI RHODES Report Released Date/Time: Sep 06, 2024 01:20 PM Reporting Lab: [address] [address] Performing Lab: [address] [address] UA COLOR Colorless Yellow UA APPEARANCE Clear Clear UA GLUCOSE >1000 mg/dL Negative UA KETONES NEGATIVE mg/dL Negative UA BLOOD NEGATIVE mg/dL Negative UA PROTEIN NEGATIVE mg/dL Negative UA NITRITE NEGATIVE mg/dL Negative UA BILIRUBIN NEGATIVE mg/dL Negative UA SPECIFIC GRAVITY 1.023 H 1.016-1.022 UA pH 6.0 5.0-9.0 UA UROBILINOGEN Normal mg/dL <2.0 UA LEUKOCYTE NEGATIVE Negative Sep 07, 2024 09:20 AM [facility] CBC AND DIFF (AUTO) Specimen Type: BLOOD No comment entered. Ordering Provider: CHANI RHODES Report Released Date/Time: Sep 06, 2024 01:20 PM Reporting Lab: [facility] [address] [address] Performing Lab: [facility] [address] [address] WBC 5.45 10*3/uL 4.50-11.00 RBC 5.45 10*6/uL [...] 08, 2024 09:00 AM VA-TOBACCO FORMER USER [facility] Tobacco Use History This section includes a history of the smoking, or tobacco-related health factors, that were collected on or before the date of the Encounter. The data comes from the [place] facility where the Encounter took place. Date/Time Smoking Status/Tobacco Use Comment F acility Mar 08, 2024 09:00 AM VA-TOBACCO QUIT 15 YRS OR MORE [facility] Mar 27, 2022 09:30 AM VA-TOBACCO FORMER USER [facility] Mar 27, 2022 09:30 AM VA-TOBACCO QUIT 15 YRS OR MORE [facility] Dec 22, 2018 10:29 AM VA-TOBACCO FORMER USER [facility] Dec 22, 2018 10:29 AM VA-TOBACCO QUIT 15 YRS OR MORE [facility] Mar 19, 2018 11:33 AM VA-TOBACCO FORMER USER [facility] Mar 19, 2018 11:33 AM VA-TOBACCO QUIT 15 YRS OR MORE [facility] May 13, 2017 01:22 PM QUIT TOBACCO USE > 7 YEARS AGO quit 24 yrs ago [facility] Nov 15, 2015 09:48 AM QUIT TOBACCO USE > 7 YEARS AGO States he last smoked 21 years ago [facility] Dec 07, 2009 02:51 PM QUIT TOBACCO USE > 7 YEARS AGO [facility] Advance Directives: All historical and current Section Date Range: From patient's date of to the date document was created. This section includes ALL of a patient's completed or amended [place] Advance and Rescinded Directives. The entries below indicate that a directive exists for the patient, but an actual copy is not included with this document. The data comes from all [facility]. Date Advance Directives Provider Source May 23, 2011 ADVANCE DIRECTIVE JUD BROOKS Encounter Notes: All associated encounter notes This section contains the clinical notes associated to the Encounter. Date/Time Encounter Note(s) Provider Source Aug 24, 2024 04:24 PM PHYSICAL THERAPY D ISCHARGE NOTE: LOCAL TITLE: PHYSICAL THERAPY DISCHARGE NOTE STANDARD TITLE: PHYSICAL THERAPY DISCHARGE NOTE DATE OF NOTE: AUG 24, 2024@16:24 ENTRY DATE: AUG 24, 2024@16:24:05 AUTHOR: BRICE DANIELIGNER: URGENCY: STATUS: COMPLETED Initial Evaluation date: 06/23/24 Progress Note Date: 07/23/24 Treatment #: 3 Treatment time: 30 Diagnosis:Pain in unspecified Knee(ICD-10-CM M25.569) Provider:VENKATA MARES PT Treatment Precautions: Patient identified by full name and date of SUBJECTIVE: Patient reports continued difficulty and pain with L LE. Patient had a fall down a couple flights of stairs due to their L knee buckling and giving out. Patient has difficulty with exercises due to increase in back pain and spasm. Patient has been able to perform step up exercise. Patient states primary aggravating factors include prolonged sitting, prolonged standing. Patient states he has been prescribed tylenol and vicodin and lidocaine patches which do not help with their pain. Patient states they have pre-existing lower back pain. Notes a hx of RTKA by Dr. Jones at [facility] in 2019. Patient states they have had arthroscopic surgeries on their L knee. Notes a surgery on the L foot to adress a fallen arch. Patient denies recent cardiac pathology like heart attacks, denies pacemaker. Currently has disability lawsuit against their previous employer. Pain current: 7-05/15 Pain best: 7-05/15 Pain worst: 07/15 Current exercise routine: used to exercise routinely, but feels limited in their ability to exercise due to their pain Work: not currently working Patient Goal: get the L knee replaced Number of days per week with pain: 04/11 SANE report Please rate your ability to [...] catastrophization- signs of kinesiophobia- Imaging findings: Gait: Antalgic with decreased stance time LLE * = pain during testing ROM: Knee flexion AROM L: 100* R: Knee flexion PROM L: 105* R: Knee Extension AROM L: -2* R: Knee Extension PROM L: 0* R: Ankle Dorsiflexion L: R: Strength: Hip flexion L: 4/5 R: 4+/5 Knee extension L: 4-/5* R: 4+/5 Knee flexion L: 4-/5* R: 4+/5 Ankle DF L: /5 R: /5 Ankle INV L: /5 R: /5 Ankle EV L: /5 R: /5 Hip ER L: 4-/5* R: 4/5 Hip ABD L: 4-/5 R: 4/5 Hip Extension L: /5 R: /5 Glute Max: L: /5 R: /5 Hip Special Tests: SLR Sign of the Buttock SCOTTIE Scour FADDIR AMARILIS NOHEMI 90/90 HS LEG LENGTH KINJAL Knee specials tests: Symptomatic knee OA: + - Age > 58 AND palpable crepitus in the knee (could be patellofemoral or tibiofemoral joints) Palpation: Joint Mobility: INTERVENTIONS: Therapeutic Exercise: Mins: 8 minutes Nu-step 8 min Manual therapy: Mins: Neuro re-ed: Mins: Other: Mins: Modalities: Mins: [] contraindication screen completed prior to modality [] skin intact pre/post modality Access Code: [email or web address] URL: [email or web address] Date: 06/23/2024 Prepared by: Brice Daniel Exercises [...] sets - 10-20 reps Patient education: Mins: 5 Provided written HEP to patient with therex from today reviewing proper form sets reps and frequency and safety precautions with patient verbalizing and demonstrating good understanding in clinic. ASSESSMENT: Patient was seen for routine follow up for knee pain. On subjective report patient hasn't noticed any improvements in their function or pain thus far. On reassessment, patient has no noticeable change in ROM assessed by goni and strength measured by MMT compared to initial evaluation. Patient has not been adherent to HEP due to increase in LBP and spasms. Patient states that they are okay with ending PT due to no detectable change in their pain, strength, and function. Patient has been looking to get surgery and will continue down that route. Advised to continue Hep to improve function before surgery to improve outcomes. GOALS: in 4-6weeks, patient will demonstrate: consistent carryover of HEP 5/7 days per week with patient able to independently teach back 75% of exercises 2pt decrease in pain level at worst to improve patient ability to complete Most symptomatic tasks 10% improvement on SANE score [...] grade improvement in hip ABD MMT PLAN: Shared decision making to d/c from PT. Patient given updated HEP [x]Low impact cardio: [x]Nustep []Recumbent bike []Recumbent elliptical []TM []Manual: []STM/DTM []METs/SCS []IASTM []Joint mobilizations [x]Therex: []Progressive UQ []Progressive Core [x]Progressive LQ []UQ flex [] Lumbar flex [x]LQ flex []Foam rolling [x]Proprioception [x]Neuro Re-education: [x]Static [x]Dynamic [x]Dual-Task [x]Education: []Posture []Ergonomics [x]Bodymechanics [x]Self-care strategies [] PNE []Modalities(PRN): []Heat/Ice []Estim/Tens []Mechanical traction []K-tape [] Biofreeze This visit was primarily performed by Da Grigsby SPT, however, I, Brice Daniel PT, DPT, was present during the course of this visit in its entirety providing direct supervision for this student. I agree with treatment and plan of care as stated. /es/ BRICE DANIEL PT, DPT PHYSICAL THERAPIST Signed: 08/24/2024 16:24 Receipt Acknowledged By: 09/06/2024 16:19 /lora/ DA GRIGSBY PHYSICAL THERAPY STUDENT BRICE DANIEL
--- OUTSIDE RECORDS SUMMARY | 2024-09-30 08:46 | XMS_ITS ---
Author Name [facility] [place] Address [address] [place] [address] Care Team Providers Care Counter Weigher Name Role Phone CHANI RHODES Primary Care [...] to Policy Zayas [employer] D[employer]ANCE [facility] February 03, 2022 [id number] EMERITA BAUTISTA PATIENT [facility] MEDICAID MEDICAID MEDIC AID Oct 06, 2013 MEDICAI D [id number] EMERITA BAUTISTA PATIENT MEDICARE (WNR) MEDICARE (M) PART A Mar 06, 2015 PART A [id number] [phone] EMERITA BAUTISTA PATIENT MEDICARE (WNR) MEDICARE (M) PART B Mar 06, 2015 PART B [id number] EMERITA BAUTISTA PATIENT MEDICARE (WNR) MEDICARE (M) PART B Mar 06, 2015 PART B [id number] EMERITA BAUTISTA PATIENT MEDICARE (WNR) MEDICARE (M) PART A Mar 06, 2015 PART A [id number] EMERITA BAUTISTA PATIENT MEDICARE (WNR) MEDICARE (M) PART B Mar 06, 2015 PART B [id number] EMERITA BAUTISTA PATIENT MEDICARE (WNR) MEDICARE (M) PART B Mar 06, 2015 PART B [id number] EMERITA BAUTISTA PATIENT MEDICARE (WNR) MEDICARE (M) PART A Mar 06, 2015 PART A [id number] EMERITA BAUTISTA PATIENT Selected Encounter This section includes the information on record at [place] for the Encounter. Date/Time Encounter Type Encounter Description Reason Provider Source Sep 23, 2024 05:44 PM QNHP OL DIG ASSMT&MGMT 5-10 CLINICAL PHARMACY ICD-10-CM E11.9 Type 2 diabetes mellitus without complications ARCELIA HUNTER Behzad Encounter Template Text not used by [place] Assessments - Encounter Diagnoses This section includes the primary and secondary diagnoses documented for the Encounter. Date/Time Primary/Secondary Diagnosis Diagnosis Name Provider Source Sep 23, 2024 05:49 PM PRIMARY Type 2 diabetes mellitus without complications ARCELIA HUNTER [facility] [place] Plan of Treatment: Future Appointments (+ 6 [...] Appointment Type Appointme nt Facility Name Sep 24, 2024 12:00 PM AMBULATORY - [place]ICINE [place] [facility] [facility] Sep 30, 2024 08:55 AM AMBULATORY - MEDICINE [place] [facility] [facility] Oct 15, 2024 08:00 AM AMBULATORY - MEDICINE [facility] Oct 27, 2024 09:30 AM AMBULATORY - MEDICINE [place] [facility] [place] [facility] Nov 04, 2024 03:00 PM AMBULATORY [place] MEDICINE [place] [facility] [facility] Nov 18, 2024 09:30 AM [facility]UL[facility]ORY - NONE [place] Nov 18, 2024 09:30 AM [facility] [place]IC[place] [facility] Jan 20, 2025 10:00 AM AMBULATORY - MEDICINE [facility] Active, Pending, and Scheduled Orders This section includes a listing of several types of active, pending, and scheduled orders, including clinic medications orders, diagnostic test orders, procedure orders and consult orders; where the start date of the order is 45 days before the date of the Encounter or 45 days after the date of theEncounter. The data comes from all [place] treatment facilities. Test Date/Time Test Type Test Details Facility Name Aug 25, 2024 01:01 PM Consult Order [facility] Front Desk [facility] Sep 16, 2024 08:39 PM Consult Order HEPATOLOGY SERVICES [facility] Hotel Front Desk Clerk[facility] Sep 21, 2024 12:00 AM Laboratory - Chemistry Order ALCOHOL, ETHYL URINE PANEL URINE (DRUG) SP [facility] [place] [facility] Sep 21, 2024 12:00 AM Laboratory - Chemistry Order AMPHETAMINES SCREEN PANEL URINE (DRUG) SP [facility] [place] [facility] Sep 21, 2024 12:00 AM Laboratory - Chemistry Order FENTANYL SCREEN PANEL URINE (DRUG) SP [facility] [place] [facility] Sep 21, 2024 12:00 AM Laboratory - Chemistry Order BENZODIAZEPINES SCREEN PANEL URINE (DRUG) SP [facility] [place] [facility] Sep 21, 2024 12:00 AM Laboratory - Chemistry Order BUPRENORPHINE SCREEN PANEL URINE (DRUG) SP [facility] [place] [facility] Sep 21, 2024 12:00 AM Laboratory - Chemistry Order CANNABINOIDS SCREEN PANEL URINE (DRUG) SP [facility] [place] [facility] Sep 21, 2024 12:00 AM Laboratory - Chemistry Order COCAINE SCREEN PANEL URINE (DRUG) SP [facility] [place] [facility] Sep 21, 2024 12:00 AM Laboratory - Chemistry Order OXYCODONE SCREEN PANEL URINE (DRUG) SP [facility] [place] [facility] Sep 21, 2024 12:00 AM Laboratory - Chemistry Order OPIATES SCREEN PANEL URINE (DRUG) SP [facility] [place] [facility] Sep 21, 2024 12:00 AM Laboratory - Chemistry Order METHADONE SCREEN URINE SP [facility] Lab Results: +/- 30 days of the [...] Range Comment Sep 07, 2024 09:20 AM [place] TSH Specimen Type: SERUM No comment entered. Ordering Provider: CHANI RHODES Report Released Date/Time: Sep 06, 2024 01:20 PM Reporting Lab: [address] [address] Performing Lab: [address] [address] TSH 1.86 u[IU]/mL 0.35-5.00 Sep 07, 2024 09:20 AM [place] PSA Specimen Type: SERUM No comment entered. Ordering Provider: CHANI RHODES Report Released Date/Time: Sep 06, 2024 01:20 PM Reporting Lab: [address] [address] Performing Lab: [address] [address] PSA 0.33 ng/mL 0.00-4.00 Sep 07, 2024 09:20 AM [place] HEMOGLOBIN A1C PANEL Specimen Type: BLOOD Comment: [...] Sep 06, 2024 01:20 PM Reporting Lab: [address] [address] Performing Lab: [facility] [address] [address] HEMOGLOBIN A1C 8.1 H 4.0-5.6 Sep 07, 2024 09:20 AM [place] LIPID PANEL FASTING Specimen Type: SERUM Comment: Hemolysis present analysis cannot be performed. Hemolysis present may falsly elevate Potassium Total and Direct Bili, Iron, AST, %Fe. Ordering Provider: CHANI RHODES Report Released Date/Time: Sep 06, 2024 01:20 PM Reporting Lab: [address] [address] Performing Lab: [address] [address] CHOLESTEROL 131 mg/dL TRIGLYCERIDE 219 mg/dL H 0-150 LDL calculated 55 mg/dL 0-129 CHOL/HDL 4.1 HDL CHOLESTEROL 32 mg/dL L 40-60 Sep 07, 2024 09:20 AM [place] LIVER FUNCTION Specimen Type: SERUM Comment: Hemolysis present analysis cannot be performed. Hemolysis present may falsly elevate Potassium Total and Direct Bili, Iron, AST, %Fe. Ordering Provider: CHANI RHODES Report Released Date/Time: Sep 06, 2024 01:20 PM Reporting Lab: [address] [address] Performing Lab: [address] [address] PROTEIN,TOTAL 7.5 g/dL 6.0-8.3 ALBUMIN 3.9 g/dL 3.5-5.0 ALKALINE PHOSPHATASE 80 U/L 40-150 AST 34 U/L 5-34 ALT 56 U/L H BILIRUBIN, TOTAL comment mg/dL 0.2-1.2 BILIRUBIN, DIRECT comment mg/dL 0-0.5 Sep 07, 2024 09:20 AM [place] BASIC METABOLIC PANEL (fasting) Specime n Type: SERUM Comment: Hemolysis present analysis cannot be performed. Hemolysis present may falsly elevate Potassium Total and Direct Bili, Iron, AST, %Fe. Ordering Provider: CHANI RHODES Report Released Date/Time: Sep 06, 2024 01:20 PM Reporting Lab: [address] [address] Performing Lab: [address] [address] UREA NITROGEN 15 mg/dL 7-25 GLUCOSE 176 mg/dL H 65-100 SODIUM 139 mmol/L 135-145 POTASSIUM 4.4 mmol/L 3.5-5.0 CHLORIDE 104 mmol/L 100-110 CO2 23 meq/L 20-30 CREATININE, Serum 1.15 mg/dL 0.50-1.40 eGFR(CKD-EPI 2020) 73 mL/min >60 Sep 07, 2024 09:20 AM [place] MICROALBUMIN CREATININE RATIO PANEL Spe cimen Type: URINE No comment entered. Ordering Provider: CHANI RHODES Report Released Date/Time: Sep 06, 2024 01:20 PM Reporting Lab: [address] [address] Performing Lab: [address] [address] MICROALBUMIN/C REATININE RATIO 18.2 mg/g 0-29.9 MICROALBUMIN,Q UANTITATIVE 0.9 mg/dL RR UNAVAIL CREATININE URINE 49.56 mg/dL Sep 07, 2024 09:20 AM [place] URINALYSIS Specimen Type: URINE Comment: If Glucose = >500 and Ketones are positive, please alert the Physician. Ordering Provider: CHANI RHODES Report Released Date/Time: Sep 06, 2024 01:20 PM Reporting Lab: [address] [address] Performing Lab: [address] [address] UA COLOR Colorless Yellow UA APPEARANCE Clear Clear UA GLUCOSE >1000 mg/dL Negative UA KETONES NEGATIVE mg/dL Negative UA BLOOD NEGATIVE mg/dL Negative UA PROTEIN NEGATIVE mg/dL Negative UA NITRITE NEGATIVE mg/dL Negative UA BILIRUBIN NEGATIVE mg/dL Negative UA SPECIFIC GRAVITY 1.023 H 1.016-1.022 UA pH 6.0 5.0-9.0 UA UROBILINOGEN Normal mg/dL <2.0 UA LEUKOCYTE NEGATIVE Negative Sep 07, 2024 09:20 AM [place] CBC AND DIFF (AUTO) Specimen Type: BLOOD No comment entered. Ordering Provider: CHANI RHODES Report Released Date/Time: Sep 06, 2024 01:20 PM Reporting Lab: [facility] [address] [address] Performing Lab: [facility] [address] [address] WBC 5.45 10*3/uL 4.50-11.00 RBC 5.45 10*6/uL [...] 11, 2023 08:30 AM [place]-TOBACCO FORMER USER [facility] Tobacco Use History This section includes a history of the smoking, or tobacco-related health factors, that were collected on or before the date of the Encounter. The data comes from the [place] facility where the Encounter took place. Date/Time Smoking Status/Tobacco Use Comment F acility Mar 11, 2023 08:30 AM [place]-TOBACCO QUIT 15 YRS OR MORE [facility] Dec 27, 2020 02:00 PM VA-TOBACCO FORMER USER [facility] Dec 27, 2020 02:00 PM [place]-TOBACCO QUIT 15 YRS OR MORE [facility] Advance Directives: All historical and current Section [...] Encounter. Date/Time Encounter Note(s) Provider Source Sep 23, 2024 05:44 PM MEDICATION MGT CON SULT: LOCAL TITLE: CONSULT REPORT/NON FORMULARY PADR STANDARD TITLE: MEDICATION MGT CONSULT DATE OF NOTE: SEP 23, 2024@17:44 ENTRY DATE: SEP 23, 2024@17:44:35 AUTHOR: ARCELIA HUNTER EXP COSIGNER: URGENCY: STATUS: COMPLETED The medical record has been reviewed with regard to this restricted drug request. Medication requested: TIRZEPATIDE 2.5MG/0.5ML INJ,SOLN PACK,4 Medication indication: T2DM Medical history relevant to this request: - Pt with PMH of obesity, HTN, OA, fatty liver, hyperlipidemia and neuropathy followed by CPP for T2DM. Current diabetes regimen includes empagliflozin, insulin aspart, insulin glargine-yfgn, metformin and semaglutide. Note pt is unable to tolerate semaglutide past 0.5mg weekly despite attempts per consult. - Current A1C is 8.1% (09/07/24). BMI 32.56. - Reasonable to consider tirzepatide in pt with tolerance issues to semaglutide due to dual mechanism of action. May improve insulin sensitivity and provide additional weightloss which will help other cmorbid conditions. - Per consult no hx of thyroid cancer or MENS2 or pancreatitis. TG slightly elevated will monitored by optometry for NPDR will asssure close . 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 Inclusion Criteria All of the following must be met [X] Diagnosis of Type 2 diabetes [X] Inadequate glycemic control on at least 1mg of semaglutide injection plus two or more glucose lowering drugs (metformin, empagliflozin, insulin, pioglitazone, sulfonylurea) for at least 6 months [X] Change needed to achieve goal A1C is less than 1%. Goal A1C should be based on those recommended in the [place]/[facility] Diabetes Guidelines [X] Adherent to current diabetes medications as evidenced by a review of prescription refill history during the last 6 months [X] Current non-GLP 1A drugs are optimized as appropriate The request is approved x 12 months - A documented adverse reaction occurred with the preferred formulary alternative(s) Comment: Unable to titrate semaglutide - A documented therapeutic failure of the preferred formulary alternative(s) exists Comment: A1C above goal despite GLP1-RA, two oral agents, and basal/bolus insulin Time spent: 5 minutes /lora/ ARCELIA HUNTER, PHARMD, BCPS CLINICAL PHARMACIST PRACTITIONER Signed: 09/23/2024 17:49 ARCELIA HUNTER [facility]
--- OUTSIDE RECORDS SUMMARY | 2024-09-30 08:46 | XMS_ITS | Encounter Summary ---
Author Name [facility] [place] Address [address] [place] [address] Care Team Providers Care Kettle Hand Name Role Phone MARELY WILKES Primary Care [...] [facility] February 03, 2022 [id number] EMERITA BAUTISTA PATIENT [facility] MEDICAID MEDICAID MEDIC AID Oct 06, 2013 MEDICAI D [id number] EMERITA BAUTISTA PATIENT MEDICARE (WNR) MEDICARE (M) PART A Mar 06, 2015 PART A [id number] [phone] EMERITA BAUTISTA PATIENT MEDICARE (WNR) MEDICARE (M) PART B Mar 06, 2015 PART B [id number] EMERITA BAUTISTA PATIENT MEDICARE (WNR) MEDICARE (M) PART B Mar 06, 2015 PART B [id number] [phone] EMERITA BAUTISTA PATIENT MEDICARE (WNR) MEDICARE (M) PART A Mar 06, 2015 PART A [id number] EMERITA BAUTISTA PATIENT MEDICARE (WNR) MEDICARE (M) PART B Mar 06, 2015 PART B [id number] EMERITA BAUTISTA PATIENT MEDICARE (WNR) MEDICARE (M) PART B Mar 06, 2015 PART B [id number] EMERITA BAUTISTA PATIENT MEDICARE (WNR) MEDICARE (M) PART A Mar 06, 2015 PART A [id number] EMERITA BAUTISTA PATIENT Selected Encounter This section includes the information on record at [place] for the Encounter. Date/Time Encounter Type Encounter Description Reason Provider Source Sep 16, 2024 08:30 AM OFF/OP EST FEBRUARY X REQ PHY/QHP PRIMARY CARE/MEDICINE ICD-10-CM M15.9 Polyosteoarthriti s, unspecified MARELY WILKES Behzad Encounter Template Text not used by [place] Assessments - Encounter Diagnoses This section includes the primary and secondary diagnoses documented for the Encounter. Date/Time Primary/Secondary Diagnosis Diagnosis Name Provider Source Sep 16, 2024 08:38 PM PRIMARY Polyosteoarthritis , unspecified MARELY WILKES Plan of Treatment: Future Appointments [...] Appointment Type Appointme nt Facility Name Sep 23, 2024 03:30 PM AMBULATORY - [place]IC[place] [facility] [place] [facility] Sep 24, 2024 12:00 PM AMBULATORY - MEDICINE [place] [facility] [place] [place] [facility] Sep 30, 2024 08:55 AM AMBULATORY - MEDICINE [place] [facility] [place] [facility] Oct 15, 2024 08:00 AM AMBULATORY - MEDICINE [facility] Oct 27, 2024 09:30 AM AMBULATORY - MEDICINE [place] [facility] [place] [facility] Nov 04, 2024 03:00 PM AMBULATORY - MEDICINE [place] [facility] [place] [facility] Nov 18, 2024 09:30 AM AMBULATORY - NONE [place] Nov 18, 2024 09:30 AM AMBUL[place]ORY - [place]IC[place] [facility] Jan 20, 2025 10:00 AM AMBULATORY - [...] PM Consult Order [facility] Cons Insole Reinforcer's [facility] Sep 16, 2024 08:39 PM Consult Order HEPATOLOGY SERVICES IF [facility] Cons Insole Reinforcer's [facility] Sep 21, 2024 12:00 AM Laboratory - Chemistry Order ALCOHOL, ETHYL URINE PANEL URINE (DRUG) SP [facility] [place] [facility] Sep 21, 2024 12:00 AM Laboratory - Chemistry Order AMPHETAMINES SCREEN PANEL URINE (DRUG) SP [facility] [facility] Sep 21, 2024 12:00 AM Laboratory - Chemistry Order FENTANYL SCREEN PANEL URINE (DRUG) SP [facility] [facility] Sep 21, 2024 12:00 AM Laboratory - Chemistry Order BENZODIAZEPINES SCREEN PANEL URINE (DRUG) SP [facility] [place] [facility] Sep 21, 2024 12:00 AM Laboratory - Chemistry Order BUPRENORPHINE SCREEN PANEL URINE (DRUG) SP [facility] [facility] Sep 21, 2024 12:00 AM Laboratory - Chemistry Order CANNABINOIDS SCREEN PANEL URINE (DRUG) SP [facility] [place] [facility] Sep 21, 2024 12:00 AM Laboratory - Chemistry Order COCAINE SCREEN PANEL URINE (DRUG) SP [facility] [facility] Sep 21, 2024 12:00 AM Laboratory - Chemistry Order METHADONE SCREEN URINE SP [facility] [facility] Sep 21, 2024 12:00 AM Laboratory - Chemistry Order OPIATES SCREEN PANEL URINE (DRUG) SP [facility] [place] [facility] Sep 21, 2024 12:00 AM Laboratory - Chemistry Order OXYCODONE SCREEN PANEL URINE (DRUG) SP [facility] Lab Results: +/- 30 days of [...] Range Comment Sep 07, 2024 09:20 AM [place] TSH Specimen Type: SERUM No comment entered. Ordering Provider: MARELY WILKES Report Released Date/Time: Sep 06, 2024 01:20 PM Reporting Lab: [address] [address] Performing Lab: [address] [address] TSH 1.86 u[IU]/mL 0.35-5.00 Sep 07, 2024 09:20 AM [place] PSA Specimen Type: SERUM No comment entered. Ordering Provider: MARELY WILKES Report Released Date/Time: Sep 06, 2024 01:20 PM Reporting Lab: [address] [address] Performing Lab: [address] [address] PSA 0.33 ng/mL 0.00-4.00 Sep 07, 2024 09:20 AM [place] LIPID PANEL FASTING Specimen Type: SERUM Comment: Hemolysis present analysis cannot be performed. Hemolysis present may falsly elevate Potassium Total and Direct Bili, Iron, AST, %Fe. Ordering Provider: MARELY WILKES Report Released Date/Time: Sep 06, 2024 01:20 PM Reporting Lab: [address] [address] Performing Lab: [address] [address] CHOLESTEROL 131 mg/dL TRIGLYCERIDE 219 mg/dL H 0-150 LDL calculated 55 mg/dL 0-129 CHOL/HDL 4.1 HDL CHOLESTEROL 32 mg/dL L 40-60 Sep 07, 2024 09:20 AM [place] BASIC METABOLIC PANEL (fasting) Specime n Type: SERUM Comment: Hemolysis present analysis cannot be performed. Hemolysis present may falsly elevate Potassium Total and Direct Bili, Iron, AST, %Fe. Ordering Provider: MARELY WILKES Report Released Date/Time: Sep 06, 2024 01:20 PM Reporting Lab: [facility] [address] [facility] [address] Performing Lab: [facility] [address] [address] UREA NITROGEN 15 mg/dL 7-25 GLUCOSE 176 mg/dL H 65-100 SODIUM 139 mmol/L 135-145 POTASSIUM 4.4 mmol/L 3.5-5.0 CHLORIDE 104 mmol/L 100-110 CO2 23 meq/L 20-30 CREATININE, Serum 1.15 mg/dL 0.50-1.40 eGFR(CKD-EPI 2020) 73 mL/min >60 Sep 07, 2024 09:20 AM [place] LIVER FUNCTION Specimen Type: SERUM Comment: Hemolysis present analysis cannot be performed. Hemolysis present may falsly elevate Potassium Total and Direct Bili, Iron, AST, %Fe. Ordering Provider: MARELY WILKES Report Released Date/Time: Sep 06, 2024 01:20 PM Reporting Lab: [facility] [address] [address] Performing Lab: [address] [address] PROTEIN,TOTAL 7.5 g/dL 6.0-8.3 ALBUMIN 3.9 g/dL 3.5-5.0 ALKALINE PHOSPHATASE 80 U/L 40-150 AST 34 U/L 5-34 ALT 56 U/L H BILIRUBIN, TOTAL comment mg/dL 0.2-1.2 BILIRUBIN, DIRECT comment mg/dL 0-0.5 Sep 07, 2024 09:20 AM [place] HEMOGLOBIN A1C PANEL Specimen Type: BLOOD Comment: Values obtained from A1C measurements can vary. For atypical A1C assays, a reported value of 7.0 could actually be between 6.72 and 7.28 if measured by a reference method. A reported value of 9.0 could actually be between 8.73 and 9.27. Ref: http://www.ngs p.org/CAPdata. asp Ordering Provider: MARELY WILKES Report Released Date/Time: Sep 06, 2024 01:20 PM Reporting Lab: [address] [address] Performing Lab: [address] [address] HEMOGLOBIN A1C 8.1 H 4.0-5.6 Sep 07, 2024 09:20 AM [place] CBC AND DIFF (AUTO) Specimen Type: BLOOD No comment entered. Ordering Provider: MARELY WILKES Report Released Date/Time: Sep 06, 2024 01:20 PM Reporting Lab: [address] [address] Performing Lab: [address] [address] WBC 5.45 10*3/uL 4.50-11.00 RBC 5.45 10*6/uL [...] 10*3/uL 0.00-0.00 Sep 07, 2024 09:20 AM [place] URINALYSIS Specimen Type: URINE Comment: If Glucose = >500 and Ketones are positive, please alert the Physician. Ordering Provider: MARELY WILKES Report Released Date/Time: Sep 06, 2024 01:20 PM Reporting Lab: [address] [address] Performing Lab: [address] [address] UA COLOR Colorless Yellow UA APPEARANCE Clear Clear UA GLUCOSE >1000 mg/dL Negative UA KETONES NEGATIVE mg/dL Negative UA BLOOD NEGATIVE mg/dL Negative UA PROTEIN NEGATIVE mg/dL Negative UA NITRITE NEGATIVE mg/dL Negative UA BILIRUBIN NEGATIVE mg/dL Negative UA SPECIFIC GRAVITY 1.023 H 1.016-1.022 UA pH 6.0 5.0-9.0 UA UROBILINOGEN Normal mg/dL <2.0 UA LEUKOCYTE NEGATIVE Negative Sep 07, 2024 09:20 AM [place] MICROALBUMIN CREATININE RATIO PANEL Spe cimen Type: URINE No comment entered. Ordering Provider: MARELY WILKES Report Released Date/Time: Sep 06, 2024 01:20 PM Reporting Lab: [address] [address] Performing Lab: [address] [address] MICROALBUMIN/C REATININE RATIO 18.2 mg/g 0-29.9 MICROALBUMIN,Q UANTITATIVE 0.9 mg/dL RR UNAVAIL CREATININE URINE 49.56 mg/dL Vital Signs: All taken on the encounter date This section contains inpatient and outpatient Vital Signs collected on the date of the Encounter. Date/Time Temperature Pulse Blood Pressure Respiratory Rate SP02 Pain Height Weight Body Mass Index Source Sep 16, 2024 08:36 AM 97.9 91 139/86 19 95 77 274 33 [place] Social History: Smoking Status (Most current) [...] 08, 2024 09:00 AM [place]-TOBACCO FORMER USER [facility] Tobacco Use History This section includes a history of the smoking, or tobacco-related health factors, that were collected on or before the date of the Encounter. The data comes from the [place] facility where the Encounter took place. Date/Time Smoking Status/Tobacco Use Comment F acility Mar 08, 2024 09:00 AM VA-TOBACCO QUIT 15 YRS OR MORE [facility] Mar 27, 2022 09:30 AM VA-TOBACCO FORMER USER [facility] Mar 27, 2022 09:30 AM VA-TOBACCO QUIT 15 YRS OR MORE [facility] Dec 22, 2018 10:29 AM VA-TOBACCO FORMER USER [facility] Dec 22, 2018 10:29 AM VA-TOBACCO QUIT 15 YRS OR MORE [facility] Mar 19, 2018 11:33 AM VA-TOBACCO FORMER USER [facility] Mar 19, 2018 11:33 AM VA-TOBACCO QUIT 15 YRS OR MORE [facility] May 13, 2017 01:22 PM QUIT TOBACCO USE > 7 YEARS AGO quit 24 yrs ago [facility] Nov 15, 2015 09:48 AM QUIT TOBACCO USE > 7 YEARS AGO States he last smoked 21 years ago [facility] Dec 07, 2009 02:51 PM QUIT TOBACCO USE > 7 YEARS AGO [facility] Advance Directives: All historical and current Section Date Range: From patient's date of to the date document was created. This section includes ALL of a patient's completed or amended [place] Advance and Rescinded Directives. The entries below indicate that a directive exists for the patient, but an actual copy is not included with this document. The data comes from all [facility]. Date Advance Directives Provider Source May 23, 2011 ADVANCE DIRECTIVE JUD [facility] Encounter Notes: All associated encounter notes This section contains the clinical notes associated to the Encounter. Date/Time Encounter Note(s) Provider Source Sep 16, 2024 08:31 PM LETTERS: LOCAL TITLE: PATIENT LETTER (B) STANDARD TITLE: LETTERS DATE OF NOTE: SEP 16, 2024@20:31 ENTRY DATE: SEP 16, 2024@20:31:35 AUTHOR: MARELY WILKES EXP COSIGNER: URGENCY: STATUS: COMPLETED [facility] [address] [place] [phone] * Date: SEP 16, 2024 Re: EMERITA OLIVEIRAFIELD: The above mentioned patient is under my care and has been found to be unable to maintain employment due to both physical and mental health disabilities. He suffers from depression related to chronic health issues that include, but are not limited to, chronic widespread pain and neuropathies that affects both his gait and mobility. He is unable to sit or stand for long periods, unable to bend or lift. His depression affects his both his sleep and ability to concentrate as well. Please call [phone] if you have any questions or concerns. Sincerely, Marely Wilkes, MSN, VENDING MACHINE SERVICER [facility] [address] [place] [id number] [phone] F [phone] MARELY WILKES NILS
--- OUTSIDE RECORDS SUMMARY | 2024-09-30 08:46 | XMS_ITS ---
Author Name [facility] [facility] [place] [facility] [place] Address [address] [place] [address] Care Team Providers Care Steel Pourer Helper Name Role Phone CHANI RHODES Primary Care [...] to Policy Zayas [employer]URANCE [facility] February 03, 2022 [id number] EMERITA BAUTISTA PATIENT [facility] MEDICAID MEDICAID MEDIC AID Oct 06, 2013 MEDICAI D [id number] EMERITA BAUTISTA PATIENT MEDICARE (WNR) MEDICARE (M) PART A Mar 06, 2015 PART A [id number] [phone] EMERITA BAUTISTA PATIENT MEDICARE (WNR) MEDICARE (M) PART B Mar 06, 2015 PART B [id number] EMERITA BAUTISTA PATIENT MEDICARE (WNR) MEDICARE (M) PART B Mar 06, 2015 PART B [id number] EMERITA BAUTISTA PATIENT MEDICARE (WNR) MEDICARE (M) PART A Mar 06, 2015 PART A [id number] EMERITA BAUTISTA PATIENT MEDICARE (WNR) MEDICARE (M) PART B Mar 06, 2015 PART B [id number] [phone] EMERITA BAUTISTA PATIENT MEDICARE (WNR) MEDICARE (M) PART B Mar 06, 2015 PART B [id number] [phone] EMERITA BAUTISTA PATIENT MEDICARE (WNR) MEDICARE (M) PART A Mar 06, 2015 PART A [id number] EMERITA BAUTISTA PATIENT Selected Encounter This section includes the information on record at [place] for the Encounter. Date/Time Encounter Type Encounter Description Reason Provider Source Sep 08, 2024 11:52 AM QNHP OL DIG ASSMT&MGMT 5-10 PAIN CLINIC ICD-10-CM M25.561 Pain in right knee JIM GARCIA [facility] Encounter Template Text not used by [place] Assessments - Encounter Diagnoses This section includes the primary and secondary diagnoses documented for the Encounter. Date/Time Primary/Secondary Diagnosis Diagnosis Name Provider Source Sep 08, 2024 11:55 AM PRIMARY [facility] [place] [facility] Sep 08, 2024 11:55 AM SECONDARY Low back pain, unspecified JIM GARCIA [place] [facility] [place] [facility] Sep 08, 2024 11:55 AM SECONDARY Pain in left knee JIM GARCIA [place] [facility] [place] [facility] Sep 08, 2024 11:55 AM SECONDARY Primary osteoarthritis, unspecified site JIM GARCIA [place] [facility] [place] [facility] Sep 08, 2024 11:55 AM SECONDARY Radiculopathy, cervical region JIM GRACIA [facility] [place] [facility] Plan of Treatment: Future Appointments [...] 2024 08:30 AM AMBULATORY - MEDICINE [facility] Sep 23, 2024 03:30 PM AMBULATORY - MEDICINE [facility] [place] [facility] Sep 24, 2024 12:00 PM AMBULATORY - MEDICINE [facility] [place] [facility] Sep 30, 2024 08:55 AM AMBULATORY - MEDICINE [place] [facility] [place] [facility] Oct 15, 2024 08:00 AM AMBULATORY - MEDICINE [facility] Oct 27, 2024 09:30 AM AMBULATORY - MEDICINE [place] [facility] [place] [facility] Nov 04, 2024 03:00 PM AMBULATORY - MEDICINE [place] [facility] [place] [facility] Nov 18, 2024 09:30 AM AMBULATORY - NONE [facility] Nov 18, 2024 09:30 AM AMBULATORY - MEDICINE [place] [place] [facility] Jan 20, 2025 10:00 AM AMBULATORY - MEDICINE [facility] Active, Pending, and Scheduled Orders This section includes a listing of several types of active, pending, and scheduled orders, including clinic medications orders, diagnostic test orders, procedure orders and consult orders; where the start date of the order is 45 days before the date of the Encounter or 45 days after the date of theEncounter. The data comes from all [facility]. Test Date/Time Test Type Test Details Facility Name Aug 25, 2024 01:01 PM Consult Order [facility] Cons Boiler Or Engine Operator's Choice [facility] Sep 16, 2024 08:39 PM Consult [facility] Sep 21, 2024 12:00 AM Laboratory - Chemistry Order AMPHETAMINES SCREEN PANEL URINE (DRUG) [facility] [place] [facility] Sep 21, 2024 12:00 AM Laboratory - Chemistry Order ALCOHOL, ETHYL URINE PANEL URINE (DRUG) [facility] [place] [facility] Sep 21, 2024 12:00 AM Laboratory - Chemistry Order FENTANYL SCREEN PANEL URINE (DRUG) [facility] Sep 21, 2024 12:00 AM Laboratory - Chemistry Order BENZODIAZEPINES SCREEN PANEL URINE (DRUG) [facility] [place] [facility] [place] [facility] Sep 21, 2024 12:00 AM Laboratory - Chemistry Order BUPRENORPHINE SCREEN PANEL URINE (DRUG) [facility] [place] [facility] Sep 21, 2024 12:00 AM Laboratory - Chemistry Order CANNABINOIDS SCREEN PANEL URINE (DRUG) [facility] [place] [facility] Sep 21, 2024 12:00 AM Laboratory - Chemistry Order COCAINE [facility]CREEN PANEL [facility] (DRUG[facility] [place] [facility] Sep 21, 2024 12:00 AM Laboratory - Chemistry Order METHADONE SCREEN URINE [facility] [place] [facility] Sep 21, 2024 12:00 AM Laboratory - Chemistry Order OPIATES SCREEN PANEL URINE (DRUG) [facility] [place] [facility] Sep 21, 2024 12:00 AM Laboratory - Chemistry Order OXYCODONE SCREEN PANEL URINE (DRUG) [facility] Lab Results: +/- 30 days [...] Range Comment Sep 07, 2024 09:20 AM [facility] TSH Specimen Type: SERUM No comment entered. Ordering Provider: CHANI RHODES Report Released Date/Time: Sep 06, 2024 01:20 PM Reporting Lab[facility] [address] [facility] [address] Performing Lab: [facility] [address] [facility] [address] TSH 1.86 u[IU]/mL 0.35-5.00 Sep 07, 2024 09:20 AM [facility] PSA Specimen Type: SERUM No comment entered. Ordering Provider: CHANI RHODES Report Released Date/Time: Sep 06, 2024 01:20 PM Reporting Lab: [facility] [address] [facility] [address] Performing Lab: [facility] [address] [address] PSA 0.33 ng/mL 0.00-4.00 Sep 07, 2024 09:20 AM [facility] LIPID PANEL FASTING Specimen Type: SERUM Comment: Hemolysis present analysis cannot be performed. Hemolysis present may falsly elevate Potassium Total and Direct Bili, Iron, AST, %Fe. Ordering Provider: CHANI RHODES Report Released Date/Time: Sep 06, 2024 01:20 PM Reporting Lab: [address] [address] Performing Lab: [address] [address] CHOLESTEROL 131 mg/dL TRIGLYCERIDE 219 mg/dL H 0-150 LDL calculated 55 mg/dL 0-129 CHOL/HDL 4.1 HDL CHOLESTEROL 32 mg/dL L 40-60 Sep 07, 2024 09:20 AM [facility] HEMOGLOBIN A1C PANEL Specimen Type: BLOOD Comment: [...] Sep 06, 2024 01:20 PM Reporting Lab: [address] [address] Performing Lab: [address] [address] HEMOGLOBIN A1C 8.1 H 4.0-5.6 Sep 07, 2024 09:20 AM [facility] LIVER FUNCTION Specimen Type: SERUM Comment: Hemolysis present analysis cannot be performed. Hemolysis present may falsly elevate Potassium Total and Direct Bili, Iron, AST, %Fe. Ordering Provider: CHANI RHODES Report Released Date/Time: Sep 06, 2024 01:20 PM Reporting Lab: [address] [address] Performing Lab: [address] [address] PROTEIN,TOTAL 7.5 g/dL 6.0-8.3 ALBUMIN 3.9 g/dL 3.5-5.0 ALKALINE PHOSPHATASE 80 U/L 40-150 AST 34 U/L 5-34 ALT 56 U/L H BILIRUBIN, TOTAL comment mg/dL 0.2-1.2 BILIRUBIN, DIRECT comment mg/dL 0-0.5 Sep 07, 2024 09:20 AM [facility] BASIC METABOLIC PANEL (fasting) Specime n Type: SERUM Comment: Hemolysis present analysis cannot be performed. Hemolysis present may falsly elevate Potassium Total and Direct Bili, Iron, AST, %Fe. Ordering Provider: CHANI RHODES Report Released Date/Time: Sep 06, 2024 01:20 PM Reporting Lab: [address] [address] Performing Lab: [address] [address] UREA NITROGEN 15 mg/dL 7-25 GLUCOSE 176 mg/dL H 65-100 SODIUM 139 mmol/L 135-145 POTASSIUM 4.4 mmol/L 3.5-5.0 CHLORIDE 104 mmol/L 100-110 CO2 23 meq/L 20-30 CREATININE, Serum 1.15 mg/dL 0.50-1.40 eGFR(CKD-EPI 2020) 73 mL/min >60 Sep 07, 2024 09:20 AM [facility] MICROALBUMIN CREATININE RATIO PANEL Spe cimen Type: URINE No comment entered. Ordering Provider: CHANI RHODES Report Released Date/Time: Sep 06, 2024 01:20 PM Reporting Lab: [address] [address] Performing Lab: [address] [address] MICROALBUMIN/C REATININE RATIO 18.2 mg/g 0-29.9 MICROALBUMIN,Q UANTITATIVE 0.9 mg/dL RR UNAVAIL CREATININE URINE 49.56 mg/dL Sep 07, 2024 09:20 AM [facility] URINALYSIS Specimen Type: URINE Comment: If Glucose = >500 and Ketones are positive, please alert the Physician. Ordering Provider: CHANI RHODES Report Released Date/Time: Sep 06, 2024 01:20 PM Reporting Lab: [address] [address] Performing Lab: [address] [address] UA COLOR Colorless Yellow UA APPEARANCE Clear Clear UA GLUCOSE >1000 mg/dL Negative UA KETONES NEGATIVE mg/dL Negative UA BLOOD NEGATIVE mg/dL Negative UA PROTEIN NEGATIVE mg/dL Negative UA NITRITE NEGATIVE mg/dL Negative UA BILIRUBIN NEGATIVE mg/dL Negative UA SPECIFIC GRAVITY 1.023 H 1.016-1.022 UA pH 6.0 5.0-9.0 UA UROBILINOGEN Normal mg/dL <2.0 UA LEUKOCYTE NEGATIVE Negative Sep 07, 2024 09:20 AM [facility] CBC AND DIFF (AUTO) Specimen Type: BLOOD No comment entered. Ordering Provider: CHANI RHODES Report Released Date/Time: Sep 06, 2024 01:20 PM Reporting Lab: [address] [address] Performing Lab: [address] [address] WBC 5.45 10*3/uL 4.50-11.00 RBC 5.45 10*6/uL [...] ity Mar 11, 2023 08:30 AM [place]-TOBAC[place] QUIT 15 YRS OR MORE [facility] Tobacco Use History This section includes a history of the smoking, or tobacco-related health factors, that were collected on or before the date of the Encounter. The data comes from the [place] facility where the Encounter took place. Date/Time Smoking Status/Tobacco Use Comment F acility Mar 11, 2023 08:30 AM [place]-TOBAC[place] QUIT 15 YRS OR MORE [facility] Dec 27, 2020 02:00 PM [place]-TOBACCO FORMER USER [place] [facility] Dec 27, 2020 02:00 PM [place]-TOBAC[place] QUIT 15 YRS OR MORE [facility] Advance Directives: All historical and current [...] Encounter. Date/Time Encounter Note(s) Provider Source Sep 08, 2024 11:52 AM [facility] LOCAL TITLE: PAIN CLINIC NOTE STANDARD TITLE: PAIN MEDICINE OUTPATIENT NOTE DATE OF NOTE: SEP 08, 2024@11:52 ENTRY DATE: SEP 08, 2024@11:52:38 AUTHOR: JIM GARCIA COSIGNER: URGENCY: STATUS: COMPLETED EMERITA Morales was identified via the National Opioid Safety Initiative(OSI) Report as a who is receiving a chronic opioid prescription and is due for updated UDS monitoring. For Veterans receiving chronic opioid therapy, routine UDS monitoring is recommended at least annually or more frequently if clinically indicated. Note, chronic opioid therapy is defined as having an active opioid prescription of a short-acting opioid filled for more than 90 days in the past year or use of a long acting opioid. Obtaining routine UDS samples has been identified as an important tool in opioid risk mitigation and safety. [employer] initiative states unexpected results must be discussed with the . EMERITA Morales, a 58 yo BLACK OR MALE, who has an active prescription for a chronic opioid and has not had a UDS completed in the last year. The is noted to have an upcoming PCP appt, which could allow for completion of required UDS. Zebulon's chart was reviewed to support the facilty's goal of helping ensure safe opioid prescribing. Active Opioid: - Hydrocodone 5mg/Acetaminophen 325mg BID PRN - Butrans 10mcg/hr Q5days Date of last UDS: No data available Date of Next PCP/lab Appt: 09/16/2024 08:30 CWM/SO/PACT 7 09/24/2024 12:00 CWM/NO/VVC/PAIN MD CLINIC 09/30/2024 08:55 COM CARE-ORTHO GEN 10/27/2024 09:30 CWM/SO/PHARM/PACT 2 05/03/2025 10:00 NHM/OPTOMETRY/WELSH/ Plan: 1. Orders for Standard UDS entered 2. For assistance with interpretation of UDS/serum monitoring or additional recommendations. Please place consult through: Pharmacy Urine Drug Screen Interpretation link in the pain consult menu. References: 1.) [facility]. Evaluation of Medication Management in [facility] Facilities, Lizabeth Year 2019. [employer]IG Comprehensive Healthcare Inspection Summary Report. Oct 2021. 2.) [facility]. Clinical Practice Guideline for the Use of Opioids in Management of Chronic Pain: [facility]D Evidence Based Practice. February 2022. -- Encounter: 10 minutes /lora/ JIM GARCIA CLINICAL PHARMACIST PRACTITIONER, PAIN Signed: 09/08/2024 11:56 JIM GARCIA [place] [facility] [place] [facility]
--- OUTSIDE RECORDS SUMMARY | 2024-09-30 08:46 | XMS_ITS | Encounter Summary ---
Author Name [facility] [place] Address [address] [place] [address] Care Team Providers Care Sport Psychologist Name Role Phone CHANI RHODES Primary Care [...] [facility] February 03, 2022 [id number] [phone] EMERITA BAUTISTA PATIENT [facility] MEDICAID MEDICAID MEDIC AID Oct 06, 2013 MEDICAI D [id number] EMERITA BAUTISTA PATIENT MEDICARE (WNR) MEDICARE (M) PART A Mar 06, 2015 PART A [id number] EMERITA BAUTISTA PATIENT MEDICARE (WNR) MEDICARE (M) PART B Mar 06, 2015 PART B [id number] [phone] EMERITA BAUTISTA PATIENT MEDICARE (WNR) MEDICARE (M) PART B Mar 06, 2015 PART B [id number] [phone] EMERITA BAUTISTA PATIENT MEDICARE (WNR) MEDICARE (M) PART A Mar 06, 2015 PART A [id number] [phone] EMERITA BAUTISTA PATIENT MEDICARE (WNR) MEDICARE (M) PART B Mar 06, 2015 PART B [id number] EMERITA BAUTISTA PATIENT MEDICARE (WNR) MEDICARE (M) PART B Mar 06, 2015 PART B [id number] [phone] EMERITA BAUTISTA PATIENT MEDICARE (WNR) MEDICARE (M) PART A Mar 06, 2015 PART A [id number] EMERITA BAUTISTA PATIENT Selected Encounter This section includes the information on record at [place] for the Encounter. Date/Time Encounter Type Encounter Description Reason Provider Source Sep 16, 2024 08:37 AM Outpatient Encounter PRIMARY CARE/MEDICINE CHANI RHODES Encounter Template Text not used by [place] Plan of Treatment: Future Appointments (+ 6 months) and Future Tests (+/- 45 days) The Plan of Treatment section includes future care activities for the patient [facility] [place] [facility]. This section includes future appointments and future [...] - MEDICINE [place] [facility] [facility] [place] [facility] Sep 24, 2024 12:00 PM AMBULATORY [place]ICINE [place] [facility] [facility] Sep 30, 2024 08:55 AM AM[place] [facility] Oct 15, 2024 08:00 AM AMBULATORY - [place]ICINE [place] Oct 27, 2024 09:30 AM AM[place]ULATORY [place]INE [place] [facility] Nov 04, 2024 03:00 PM AM[place]ULATORY [place] [facility] Nov 18, 2024 09:30 AM AM[place]ATORY - NONE [place] Nov 18, 2024 09:30 AM AM[place]UL[place]ORY - [place]IC[place] [facility] Jan 20, 2025 10:00 AM AMBULATORY [...] PM Consult Order [facility] Cons [facility] [employer] [facility] Sep 16, 2024 08:39 PM Consult Order [facility] Cons [facility] Sep 21, 2024 12:00 AM Laboratory - Chemistry Order AMPHETAMINES SCREEN PANEL URINE (DRUG) [facility] Sep 21, 2024 12:00 AM Laboratory - Chemistry Order ALCOHOL, ETHYL URINE PANEL URINE (DRUG) [facility] Sep 21, 2024 12:00 AM Laboratory - Chemistry Order FENTANYL SCREEN PANEL URINE (DRUG) [facility] Sep 21, 2024 12:00 AM Laboratory - Chemistry Order BENZODIAZEPINES SCREEN PANEL URINE (DRUG) [facility] Sep 21, 2024 12:00 AM Laboratory - Chemistry Order BUPRENORPHINE SCREEN PANEL URINE (DRUG) [facility] Sep 21, 2024 12:00 AM Laboratory - Chemistry Order CANNABINOIDS SCREEN PANEL URINE (DRUG) [facility] Sep 21, 2024 12:00 AM Laboratory - Chemistry Order COCAINE SCREEN PANEL URINE (DRUG) [facility] Sep 21, 2024 12:00 AM Laboratory - Chemistry Order METHADONE SCREEN URINE [facility] Sep 21, 2024 12:00 AM Laboratory - Chemistry Order OPIATES SCREEN PANEL URINE (DRUG) [facility] Sep 21, 2024 12:00 AM Laboratory - Chemistry Order OXYCODONE SCREEN PANEL [facility] ([facility]UG) [facility] Lab Results: +/- 30 days of [...] Range Comment Sep 07, 2024 09:20 AM [facility] TSH Specimen Type: SERUM No comment entered. Ordering Provider: CHANI RHODES Report Released Date/Time: Sep 06, 2024 01:20 PM Reporting Lab: [address] [address] Performing Lab: [address] [address] TSH 1.86 u[IU]/mL 0.35-5.00 Sep 07, 2024 09:20 AM [facility] PSA Specimen Type: SERUM No comment entered. Ordering Provider: CHANI RHODES Report Released Date/Time: Sep 06, 2024 01:20 PM Reporting Lab: [address] [address] Performing Lab: [address] [address] PSA 0.33 ng/mL 0.00-4.00 Sep 07, 2024 09:20 AM [facility] LIPID PANEL FASTING Specimen Type: SERUM Comment: Hemolysis present analysis cannot be performed. Hemolysis present may falsly elevate Potassium Total and Direct Bili, Iron, AST, %Fe. Ordering Provider: CHANI RHODES Report Released Date/Time: Sep 06, 2024 01:20 PM Reporting Lab: [address] [address] Performing Lab: [address] [address] CHOLESTEROL 131 mg/dL TRIGLYCERIDE 219 mg/dL H 0-150 LDL calculated 55 mg/dL 0-129 CHOL/HDL 4.1 HDL CHOLESTEROL 32 mg/dL L 40-60 Sep 07, 2024 09:20 AM [facility] HEMOGLOBIN A1C PANEL Specimen Type: BLOOD Comment: [...] Sep 06, 2024 01:20 PM Reporting Lab: [address] [address] Performing Lab: [address] [address] HEMOGLOBIN A1C 8.1 H 4.0-5.6 Sep 07, 2024 09:20 AM [facility] LIVER FUNCTION Specimen Type: SERUM Comment: Hemolysis present analysis cannot be performed. Hemolysis present may falsly elevate Potassium Total and Direct Bili, Iron, AST, %Fe. Ordering Provider: CHANI RHODES Report Released Date/Time: Sep 06, 2024 01:20 PM Reporting Lab: [address] [address] Performing Lab: [address] [address] PROTEIN,TOTAL 7.5 g/dL 6.0-8.3 ALBUMIN 3.9 g/dL 3.5-5.0 ALKALINE PHOSPHATASE 80 U/L 40-150 AST 34 U/L 5-34 ALT 56 U/L H BILIRUBIN, TOTAL comment mg/dL 0.2-1.2 BILIRUBIN, DIRECT comment mg/dL 0-0.5 Sep 07, 2024 09:20 AM [facility] BASIC METABOLIC PANEL (fasting) Specime n Type: SERUM Comment: Hemolysis present analysis cannot be performed. Hemolysis present may falsly elevate Potassium Total and Direct Bili, Iron, AST, %Fe. Ordering Provider: CHANI RHODES Report Released Date/Time: Sep 06, 2024 01:20 PM Reporting Lab: [address] [address] Performing Lab: [address] [address] UREA NITROGEN 15 mg/dL 7-25 GLUCOSE 176 mg/dL H 65-100 SODIUM 139 mmol/L 135-145 POTASSIUM 4.4 mmol/L 3.5-5.0 CHLORIDE 104 mmol/L 100-110 CO2 23 meq/L 20-30 CREATININE, Serum 1.15 mg/dL 0.50-1.40 eGFR(CKD-EPI 2020) 73 mL/min >60 Sep 07, 2024 09:20 AM [facility] MICROALBUMIN CREATININE RATIO PANEL Spe cimen Type: URINE No comment entered. Ordering Provider: CHANI RHODES Report Released Date/Time: Sep 06, 2024 01:20 PM Reporting Lab: [address] [address] Performing Lab: [address] [address] MICROALBUMIN/C REATININE RATIO 18.2 mg/g 0-29.9 MICROALBUMIN,Q UANTITATIVE 0.9 mg/dL RR UNAVAIL CREATININE URINE 49.56 mg/dL Sep 07, 2024 09:20 AM [facility] URINALYSIS Specimen Type: URINE Comment: If Glucose = >500 and Ketones are positive, please alert the Physician. Ordering Provider: CHANI RHODES Report Released Date/Time: Sep 06, 2024 01:20 PM Reporting Lab: [address] [address] Performing Lab: [address] [address] UA COLOR Colorless Yellow UA APPEARANCE Clear Clear UA GLUCOSE >1000 mg/dL Negative UA KETONES NEGATIVE mg/dL Negative UA BLOOD NEGATIVE mg/dL Negative UA PROTEIN NEGATIVE mg/dL Negative UA NITRITE NEGATIVE mg/dL Negative UA BILIRUBIN NEGATIVE mg/dL Negative UA SPECIFIC GRAVITY 1.023 H 1.016-1.022 UA pH 6.0 5.0-9.0 UA UROBILINOGEN Normal mg/dL <2.0 UA LEUKOCYTE NEGATIVE Negative Sep 07, 2024 09:20 AM [facility] CBC AND DIFF (AUTO) Specimen Type: BLOOD No comment entered. Ordering Provider: CHANI RHODES Report Released Date/Time: Sep 06, 2024 01:20 PM Reporting Lab: [address] [address] Performing Lab: [address] [address] WBC 5.45 10*3/uL 4.50-11.00 RBC 5.45 10*6/uL [...] 08:30 AM [place]-TOBACCO FORMER USER [place] [facility] [place] [facility] Tobacco Use History This section includes a history of the smoking, or tobacco-related health factors, that were collected on or before the date of the Encounter. The data comes from the [place] facility where the Encounter took place. Date/Time Smoking Status/Tobacco Use Comment [facility] Mar 11, 2023 08:30 AM [place]-TO[place] QUIT 15 YRS OR MORE [place] [facility] Dec 27, 2020 02:00 PM [place] FOR[place] US[place] [facility] Dec 27, 2020 02:00 PM [place]-TOBACCO QUIT 15 YRS OR MORE [facility] Advance Directives: All historical and [...] Encounter Note(s) Provider Source Sep 16, 2024 08:37 AM PREVENTIVE MEDICIN E NURSING NOTE: LOCAL TITLE: CLINICAL REMINDERS/NURSING STANDARD TITLE: PREVENTIVE MEDICINE NURSING NOTE DATE OF NOTE: SEP 16, 2024@08:37 ENTRY DATE: SEP 16, 2024@08:37:42 AUTHOR: SHAKEEL STEWART EXP COSIGNER: URGENCY: STATUS: COMPLETED Advance Directive Screen AD: Patient has an Advance Directive on file at this [facility]. No updates are needed at this time. The patient received education about Advance Directives and written notification of his/her rights. Pneumococcal Conjugate Vaccine (PCV15/PCV20): Refuses PCV vaccine Immunization: PNEUMOCOCCAL CONJUGATE, UNSPECIFIED FORMULATION Refusal Reason: PATIENT DECISION Patient refuses all immunization(s) in the PneumoPCV group Date Documented: 09/16/24 08:38 Td / Tdap Immunization: The patient declines to receive the recommended dose of Td/Tdap vaccine. Immunization: TD(ADULT) UNSPECIFIED FORMULATION Refusal Reason: PATIENT DECISION Patient refuses all immunization(s) in the Td group Date Documented: 09/16/24 08:38 COVID-19 Immunization: Refused Moderna Monovalent COVID-19 vaccine Immunization: COVID-19 (MODERNA), MRNA, LNP-S, PF, 50 MCG/0.5 ML (AGES 12+ YEARS) Refusal Reason: PATIENT DECISION Patient refuses all immunization(s) in the COVID-19 group Date Documented: 09/16/24 08:39 PAVE Foot Check: A complete foot check was completed at this encounter. VISUAL INSPECTION: Includes inspection for skin breaks, deformity, erythema, trauma, pallor on elevation, dependent rubor, nail deformities, extensive callus and pitting edema. Visual exam results: Normal PEDAL PULSES: Includes palpation of dorsalis and posterior tibial pulses and signs/symptoms of vascular compromise like pain, pallor, parasthesia or paralysis. Present (even if diminished) SENSORY CHECK: Includes 10 gram Monofilament (Kingsbury-Megan) test of sensation. Intact (Greater than or equal to 80% of sites checked) Abnormal (Less than 80% of sites checked): Intact LOW-RISK: LOW RISK INFORMATION PROVIDED: 1. Advised patient not to walk barefoot. 2. Explained the importance of daily foot checks for changes. 3. Stressed the importance of daily foot hygiene, including bathing and complete drying. The patient verbalized understanding and was offered a detailed handout on diabetic foot care. /lora/ PEDRO STEWART LPN LPN Signed: 09/16/2024 08:39 PEDRO STEWART [facility]
--- OUTSIDE RECORDS SUMMARY | 2024-09-30 08:46 | XMS_ITS | Encounter Summary ---
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 Address [address] [place] [id number] Care Team Providers Care Digital Sales Planner Name Role Phone CHANI RHODES Primary Care [...] [facility] February 03, 2022 [id number] EMERITA BAUTISTA PATIENT [facility] MEDICAID MEDICAID MEDIC AID Oct 06, 2013 MEDICAI D [id number] EMERITA BAUTISTA PATIENT MEDICARE (WNR) MEDICARE (M) PART A Mar 06, 2015 PART A [id number] EMERITA BAUTISTA PATIENT MEDICARE (WNR) MEDICARE (M) PART B Mar 06, 2015 PART B [id number] [phone] EMERITA BAUTISTA PATIENT MEDICARE (WNR) MEDICARE (M) PART B Mar 06, 2015 PART B [id number] EMERITA BAUTISTA PATIENT MEDICARE (WNR) MEDICARE (M) PART A Mar 06, 2015 PART A [id number] EMERITA BAUTISTA PATIENT MEDICARE (WNR) MEDICARE (M) PART B Mar 06, 2015 PART B [id number] EMERITA BAUTISTA PATIENT MEDICARE (WNR) MEDICARE (M) PART B Mar 06, 2015 PART B [id number] EMERITA BAUTISTA PATIENT MEDICARE (WNR) MEDICARE (M) PART A Mar 06, 2015 PART A [id number] [phone] EMERITA BAUTISTA PATIENT Selected Encounter This section includes the information on record at [place] for the Encounter. Date/Time Encounter Type Encounter Description Reason Pro vider Source Sep 23, 2024 03:30 PM Outpatient Encounter TELEPHONE PRIMARY CARE IHE Encounter Template Text not used by [place] Plan of Treatment: Future Appointments (+ 6 [...] 24, 2024 12:00 PM AM[place]ULATORY [place]INE [place] [facility] Sep 30, 2024 08:55 AM AM[place]ULATORY [place] [facility] Oct 15, 2024 08:00 AM AMBULATORY - [place]ICINE [place] Oct 27, 2024 09:30 AM AMBULATORY [place]ICINE [place] [facility] Nov 04, 2024 03:00 PM AMBULATORY - [place]ICINE [place] [facility] Nov 18, 2024 09:30 AM AM[place]ULATORY - NONE [place] Nov 18, 2024 09:30 AM [place]ORY - [place]IC[place] [facility] Jan 20, 2025 10:00 AM AMBULATORY [...] of theEncounter. The data comes from all [place] treatment facilities. Test Date/Time Test Type Test Details Facility Name Aug 25, 2024 01:01 PM Consult Order [facility] Sep 16, 2024 08:39 PM Consult [facility] Sep 21, 2024 12:00 AM Laboratory - Chemistry Order ALCOHOL, ETHYL URINE PANEL URINE (DRUG) [place] [facility] [facility] Sep 21, 2024 12:00 AM Laboratory - Chemistry Order AMPHETAMINES SCREEN PANEL URINE (DRUG) [place] [facility] [facility] Sep 21, 2024 12:00 AM Laboratory - Chemistry Order FENTANYL SCREEN PANEL URINE (DRUG) [facility] [place] [facility] Sep 21, 2024 12:00 AM Laboratory - Chemistry Order BENZODIAZEPINES SCREEN PANEL URINE (DRUG) [facility] [place] [facility] Sep 21, 2024 12:00 AM Laboratory - Chemistry Order BUPRENORPHINE SCREEN PANEL URINE (DRUG) [facility] [place] [facility] Sep 21, 2024 12:00 AM Laboratory - Chemistry Order CANNABINOIDS SCREEN PANEL URINE (DRUG) [facility] [place] [facility] Sep 21, 2024 12:00 AM Laboratory - Chemistry Order COCAINE SCREEN PANEL URINE (DRUG) [facility] [place] [facility] Sep 21, 2024 12:00 AM Laboratory - Chemistry Order OPIATES SCREEN PANEL URINE (DRUG) [place] [facility] [facility] Sep 21, 2024 12:00 AM Laboratory - Chemistry Order OXYCODONE SCREEN PANEL URINE (DRUG) [place] [facility] [facility] Sep 21, 2024 12:00 AM Laboratory - Chemistry [facility] Lab Results: +/- 30 days [...] Range Comment Sep 07, 2024 09:20 AM [facility] TSH Specimen Type: SERUM No comment entered. Ordering Provider: CHANI RHODES Report Released Date/Time: Sep 06, 2024 01:20 PM Reporting Lab: [facility] [address] [address] Performing Lab: [facility] [address] [address] TSH 1.86 u[IU]/mL 0.35-5.00 Sep 07, 2024 09:20 AM [facility] PSA Specimen Type: SERUM No comment entered. Ordering Provider: CHANI RHODES Report Released Date/Time: Sep 06, 2024 01:20 PM Reporting Lab: [facility] [address] [address] Performing Lab: [facility] [address] [address] PSA 0.33 ng/mL 0.00-4.00 Sep 07, 2024 09:20 AM [facility] HEMOGLOBIN A1C PANEL Specimen Type: BLOOD [...] Sep 06, 2024 01:20 PM Reporting Lab: [facility] [address] [address] Performing Lab: [facility] [address] [address] HEMOGLOBIN A1C 8.1 H 4.0-5.6 Sep 07, 2024 09:20 AM [facility] LIPID PANEL FASTING Specimen Type: SERUM Comment: Hemolysis present analysis cannot be performed. Hemolysis present may falsly elevate Potassium Total and Direct Bili, Iron, AST, %Fe. Ordering Provider: CHANI RHODES Report Released Date/Time: Sep 06, 2024 01:20 PM Reporting Lab: [address] [address] Performing Lab: [address] [address] CHOLESTEROL 131 mg/dL TRIGLYCERIDE 219 mg/dL H 0-150 LDL calculated 55 mg/dL 0-129 CHOL/HDL 4.1 HDL CHOLESTEROL 32 mg/dL L 40-60 Sep 07, 2024 09:20 AM [facility] LIVER FUNCTION Specimen Type: SERUM Comment: Hemolysis present analysis cannot be performed. Hemolysis present may falsly elevate Potassium Total and Direct Bili, Iron, AST, %Fe. Ordering Provider: CHANI RHODES Report Released Date/Time: Sep 06, 2024 01:20 PM Reporting Lab: [address] [address] Performing Lab: [address] [address] PROTEIN,TOTAL 7.5 g/dL 6.0-8.3 ALBUMIN 3.9 g/dL 3.5-5.0 ALKALINE PHOSPHATASE 80 U/L 40-150 AST 34 U/L 5-34 ALT 56 U/L H BILIRUBIN, TOTAL comment mg/dL 0.2-1.2 BILIRUBIN, DIRECT comment mg/dL 0-0.5 Sep 07, 2024 09:20 AM [facility] BASIC METABOLIC PANEL (fasting) Specime n Type: SERUM Comment: Hemolysis present analysis cannot be performed. Hemolysis present may falsly elevate Potassium Total and Direct Bili, Iron, AST, %Fe. Ordering Provider: CHANI RHODES Report Released Date/Time: Sep 06, 2024 01:20 PM Reporting Lab: [address] [address] Performing Lab: [address] [address] UREA NITROGEN 15 mg/dL 7-25 GLUCOSE 176 mg/dL H 65-100 SODIUM 139 mmol/L 135-145 POTASSIUM 4.4 mmol/L 3.5-5.0 CHLORIDE 104 mmol/L 100-110 CO2 23 meq/L 20-30 CREATININE, Serum 1.15 mg/dL 0.50-1.40 eGFR(CKD-EPI 2020) 73 mL/min >60 Sep 07, 2024 09:20 AM [facility] MICROALBUMIN CREATININE RATIO PANEL Spe cimen Type: URINE No comment entered. Ordering Provider: CHANI RHODES Report Released Date/Time: Sep 06, 2024 01:20 PM Reporting Lab: [address] [address] Performing Lab: [address] [address] MICROALBUMIN/C REATININE RATIO 18.2 mg/g 0-29.9 MICROALBUMIN,Q UANTITATIVE 0.9 mg/dL RR UNAVAIL CREATININE URINE 49.56 mg/dL Sep 07, 2024 09:20 AM [facility] URINALYSIS Specimen Type: URINE Comment: If Glucose = >500 and Ketones are positive, please alert the Physician. Ordering Provider: CHANI RHODES Report Released Date/Time: Sep 06, 2024 01:20 PM Reporting Lab: [address] [address] Performing Lab: [address] [address] UA COLOR Colorless Yellow UA APPEARANCE Clear Clear UA GLUCOSE >1000 mg/dL Negative UA KETONES NEGATIVE mg/dL Negative UA BLOOD NEGATIVE mg/dL Negative UA PROTEIN NEGATIVE mg/dL Negative UA NITRITE NEGATIVE mg/dL Negative UA BILIRUBIN NEGATIVE mg/dL Negative UA SPECIFIC GRAVITY 1.023 H 1.016-1.022 UA pH 6.0 5.0-9.0 UA UROBILINOGEN Normal mg/dL <2.0 UA LEUKOCYTE NEGATIVE Negative Sep 07, 2024 09:20 AM [facility] CBC AND DIFF (AUTO) Specimen Type: BLOOD No comment entered. Ordering Provider: CHANI RHODES Report Released Date/Time: Sep 06, 2024 01:20 PM Reporting Lab: [address] [address] Performing Lab: [address] [address] WBC 5.45 10*3/uL 4.50-11.00 RBC 5.45 10*6/uL [...] 08, 2024 09:00 AM VA-TOBACCO FORMER USER [facility] Tobacco Use History This section includes a history of the smoking, or tobacco-related health factors, that were collected on or before the date of the Encounter. The data comes from the [place] facility where the Encounter took place. Date/Time Smoking Status/Tobacco Use Comment F acility Mar 08, 2024 09:00 AM [place]-TOBAC[place] QUIT 15 YRS OR MORE [facility] Mar 27, 2022 09:30 AM [place]-TOBAC[place] FORMER US[place] [facility] Mar 27, 2022 09:30 AM VA-TOBACCO QUIT 15 YRS OR MORE [facility] Dec 22, 2018 10:29 AM VA-TOBACCO FORMER USER [facility] Dec 22, 2018 10:29 AM VA-TOBACCO QUIT 15 YRS OR MORE [facility] Mar 19, 2018 11:33 AM VA-TOBACCO FORMER USER [facility] Mar 19, 2018 11:33 AM VA-TOBACCO QUIT 15 YRS OR MORE [facility] May 13, 2017 01:22 PM QUIT TOBACCO USE > 7 YEARS AGO quit 24 yrs ago [facility] Nov 15, 2015 09:48 AM QUIT TOBACCO USE > 7 YEARS AGO States he last smoked 21 years ago [facility] Dec 07, 2009 02:51 PM QUIT TOBACCO USE > 7 YEARS AGO [facility] Advance Directives: All historical and current Section Date Range: From patient's date of to the date document was created. This section includes ALL of a patient's completed or amended [place] Advance and Rescinded Directives. The entries below indicate that a directive exists for the patient, but an actual copy is not included with this document. The data comes from all [place] facilities. Date Advance Directives Provider Source May 23, 2011 ADVANCE DIRECTIVE JUD BROOKS Encounter Notes: All associated encounter notes This section contains the clinical notes associated to the Encounter. Date/Time Encounter Note(s) Provider Source Sep 23, 2024 09:29 AM CLERICAL NOTE: LOCAL TITLE: APPOINTMENT NO SHOW STANDARD TITLE: CLERICAL NOTE DATE OF NOTE: SEP 23, 2024@09:29 ENTRY DATE: SEP 23, 2024@09:29:16 AUTHOR: SHANDA BECK COSIGNER: URGENCY: STATUS: COMPLETED Patient Name: EMERITA BAUTISTA Patient SSN: [id number] Date and time of Appointment No show : 09/23/24 15:30 PATIENT PHONE - PHONE NUMBER [CELLULAR] - Patient's medical record was reviewed. Follow-up actions were determined and initiated: Please check/complete as applies: [X]Telephoned Directly [ ]Re-scheduled for next available appt [ ]Sent a N0-show letter ( must call for appointment) [ ]Other (Emergent/Overbook, etc.): Additional Comments: PT HAS F/UP VISIT IN PERSON IN OCTOBER Future Clinic Visits 09/24/2024 12:00 CWM/NO/VVC/PAIN MD CLINIC 09/30/2024 08:55 COM CARE-ORTHO GEN 10/15/2024 08:00 CWM/SO/PODIATRY/ROSS 10/27/2024 09:30 CWM/SO/PHARM/PACT 2 05/03/2025 10:00 NHM/OPTOMETRY/WELSH/ /es/ SHANDA BECK CLINICAL CREDIT CARD SPECIALIST Signed: 09/23/2024 09:29 SHANDA BECK [facility]
--- OUTSIDE RECORDS SUMMARY | 2024-09-30 08:46 | XMS_ITS | Encounter Summary ---
Author Name [facility] Organization [facility] Address [address] [place] [address] Care Team Providers Care Technical Sales Support Manager Name Role Phone CHANI RHODES Primary Care [...] [facility] H[facility] February 03, 2022 [id number] EMERITA BAUTISTA PATIENT [facility] MEDICAID MEDICAID MEDIC AID Oct 06, 2013 MEDICAI D [id number] EMERITA BAUTISTA PATIENT MEDICARE (WNR) MEDICARE (M) PART A Mar 06, 2015 PART A [id number] [phone] EMERITA BAUTISTA PATIENT MEDICARE (WNR) MEDICARE (M) PART B Mar 06, 2015 PART B [id number] EMERITA BAUTISTA PATIENT MEDICARE (WNR) MEDICARE (M) PART B Mar 06, 2015 PART B [id number] [phone] EMERITA BAUTISTA PATIENT MEDICARE (WNR) MEDICARE (M) PART A Mar 06, 2015 PART A [id number] [phone] EMERITA BAUTISTA PATIENT MEDICARE (WNR) MEDICARE (M) PART B Mar 06, 2015 PART B [id number] [phone] EMERITA BAUTISTA PATIENT MEDICARE (WNR) MEDICARE (M) PART B Mar 06, 2015 PART B [id number] [phone] EMERITA BAUTISTA PATIENT MEDICARE (WNR) MEDICARE (M) PART A Mar 06, 2015 PART A [id number] EMERITA BAUTISTA PATIENT Selected Encounter This section includes the information on record at [place] for the Encounter. Date/Time Encounter Type Encounter Description Reason Pro vider Source Sep 23, 2024 09:56 AM Outpatient Encounter PAIN CLINIC [facility] Encounter Template Text not used by [place] Plan of Treatment: Future Appointments (+ 6 months) and Future Tests (+/- 45 days) The Plan of Treatment section includes future care activities for the [facility] [place] [facility] This section includes future appointments [...] 24, 2024 12:00 PM AMBULATORY - MEDICINE [facility] [place] [facility] Sep 30, 2024 08:55 AM AMBULATORY - MEDICINE [place] [facility] [place] [facility] Oct 15, 2024 08:00 AM AMBULATORY - MEDICINE [place] Oct 27, 2024 09:30 AM AMBULATORY - MEDICINE [place] [facility] [place] [facility] Nov 04, 2024 03:00 PM AMBULATORY - MEDICINE [place] [facility] [place] [facility] Nov 18, 2024 09:30 AM AMBULATORY - NONE [place] Nov 18, 2024 09:30 AM AMBULATORY - MEDICINE [place] [facility] Jan 20, 2025 10:00 [...] of theEncounter. The data comes from all [place] treatment facilities. Test Date/Time Test Type Test Details Facility Name Aug 25, 2024 01:01 PM Consult Order [facility] Cons Risk And Insurance Manager's [facility] Sep 16, 2024 08:39 PM Consult [facility] Sep 21, 2024 12:00 AM Laboratory - Chemistry Order ALCOHOL, ETHYL URINE PANEL [facility] [place] [facility] Sep 21, 2024 12:00 AM Laboratory - Chemistry Order AMPHETAMINES SCREEN PANEL URINE (DRUG) [facility] Sep 21, 2024 12:00 AM Laboratory - Chemistry Order FENTANYL SCREEN PANEL URINE (DRUG) [facility] Sep 21, 2024 12:00 AM Laboratory - Chemistry Order BENZODIAZEPINES SCREEN PANEL URINE (DRUG) [facility] [place] [facility] Sep 21, 2024 12:00 AM Laboratory - Chemistry Order BUPRENORPHINE SCREEN PANEL URINE (DRUG) [facility] Sep 21, 2024 12:00 AM Laboratory - Chemistry Order CANNABINOIDS SCREEN PANEL URINE (DRUG) [facility] Sep 21, 2024 12:00 AM Laboratory - Chemistry Order COCAINE SCREEN PANEL URINE (DRUG) [facility] Sep 21, 2024 12:00 AM Laboratory - Chemistry Order METHADONE SCREEN URINE [facility] Sep 21, 2024 12:00 AM Laboratory - Chemistry Order OPIATES SCREEN PANEL URINE (DRUG) [facility] Sep 21, 2024 12:00 AM Laboratory - Chemistry Order OXYCODONE SCREEN PANEL [facility] Lab Results: +/- 30 days of the encounter This section includes the Chemistry and Hematology Lab Results on record with [place] for the patient. Radiology Reports and Pathology Reports are provided separately, in subsequent sections. Lab Results This section contains the Chemistry/Hematology Results that were resulted 30 days before or 30 daysafter the date of the Encounter. Date/Time Source Result Type Result - Unit Interpretation Reference Range Comment Sep 07, 2024 09:20 AM [place] TSH Specimen Type: SERUM No comment entered. Ordering Provider: CHANI RHODES Report Released Date/Time: Sep 06, 2024 01:20 PM Reporting Lab: [address] [address] Performing Lab: [address] [address] TSH 1.86 u[IU]/mL 0.35-5.00 Sep 07, 2024 09:20 AM [place] PSA Specimen Type: SERUM No comment entered. Ordering Provider: CHANI RHODES Report Released Date/Time: Sep 06, 2024 01:20 PM Reporting Lab: [address] [address] Performing Lab: [address] [address] PSA 0.33 ng/mL 0.00-4.00 Sep 07, 2024 09:20 AM [place] LIPID PANEL FASTING Specimen Type: SERUM Comment: Hemolysis present analysis cannot be performed. Hemolysis present may falsly elevate Potassium Total and Direct Bili, Iron, AST, %Fe. Ordering Provider: CHANI RHODES Report Released Date/Time: Sep 06, 2024 01:20 PM Reporting Lab: [address] [address] Performing Lab: [address] [address] CHOLESTEROL 131 mg/dL TRIGLYCERIDE 219 mg/dL H 0-150 LDL calculated 55 mg/dL 0-129 CHOL/HDL 4.1 HDL CHOLESTEROL 32 mg/dL L 40-60 Sep 07, 2024 09:20 AM [place] HEMOGLOBIN A1C PANEL Specimen Type: BLOOD Comment: [...] Sep 06, 2024 01:20 PM Reporting Lab: [address] [address] Performing Lab: [address] [address] HEMOGLOBIN A1C 8.1 H 4.0-5.6 Sep 07, 2024 09:20 AM [place] LIVER FUNCTION Specimen Type: SERUM Comment: Hemolysis present analysis cannot be performed. Hemolysis present may falsly elevate Potassium Total and Direct Bili, Iron, AST, %Fe. Ordering Provider: CHANI RHODES Report Released Date/Time: Sep 06, 2024 01:20 PM Reporting Lab: [address] [address] Performing Lab: [address] [address] PROTEIN,TOTAL 7.5 g/dL 6.0-8.3 ALBUMIN 3.9 g/dL 3.5-5.0 ALKALINE PHOSPHATASE 80 U/L 40-150 AST 34 U/L 5-34 ALT 56 U/L H BILIRUBIN, TOTAL comment mg/dL 0.2-1.2 BILIRUBIN, DIRECT comment mg/dL 0-0.5 Sep 07, 2024 09:20 AM [place] BASIC METABOLIC PANEL (fasting) Specime n Type: SERUM Comment: Hemolysis present analysis cannot be performed. Hemolysis present may falsly elevate Potassium Total and Direct Bili, Iron, AST, %Fe. Ordering Provider: CHANI RHODES Report Released Date/Time: Sep 06, 2024 01:20 PM Reporting Lab: [address] [address] Performing Lab: [address] [address] UREA NITROGEN 15 mg/dL 7-25 GLUCOSE 176 mg/dL H 65-100 SODIUM 139 mmol/L 135-145 POTASSIUM 4.4 mmol/L 3.5-5.0 CHLORIDE 104 mmol/L 100-110 CO2 23 meq/L 20-30 CREATININE, Serum 1.15 mg/dL 0.50-1.40 eGFR(CKD-EPI 2020) 73 mL/min >60 Sep 07, 2024 09:20 AM [place] MICROALBUMIN CREATININE RATIO PANEL Spe cimen Type: URINE No comment entered. Ordering Provider: CHANI RHODES Report Released Date/Time: Sep 06, 2024 01:20 PM Reporting Lab: [address] [address] Performing Lab: [address] [address] MICROALBUMIN/C REATININE RATIO 18.2 mg/g 0-29.9 MICROALBUMIN,Q UANTITATIVE 0.9 mg/dL RR UNAVAIL CREATININE URINE 49.56 mg/dL Sep 07, 2024 09:20 AM [place] URINALYSIS Specimen Type: URINE Comment: If Glucose = >500 and Ketones are positive, please alert the Physician. Ordering Provider: CHANI RHODES Report Released Date/Time: Sep 06, 2024 01:20 PM Reporting Lab: [address] [address] Performing Lab: [address] [address] UA COLOR Colorless Yellow UA APPEARANCE Clear Clear UA GLUCOSE >1000 mg/dL Negative UA KETONES NEGATIVE mg/dL Negative UA BLOOD NEGATIVE mg/dL Negative UA PROTEIN NEGATIVE mg/dL Negative UA NITRITE NEGATIVE mg/dL Negative UA BILIRUBIN NEGATIVE mg/dL Negative UA SPECIFIC GRAVITY 1.023 H 1.016-1.022 UA pH 6.0 5.0-9.0 UA UROBILINOGEN Normal mg/dL <2.0 UA LEUKOCYTE NEGATIVE Negative Sep 07, 2024 09:20 AM [place] CBC AND DIFF (AUTO) Specimen Type: BLOOD No comment entered. Ordering Provider: CHANI RHODES Report Released Date/Time: Sep 06, 2024 01:20 PM Reporting Lab: [address] [address] Performing Lab: [address] [address] WBC 5.45 10*3/uL 4.50-11.00 RBC 5.45 10*6/uL [...] Facil ity Mar 11, 2023 08:30 AM [place]-TOBACCO FORMER USER [facility] Tobacco Use History This section includes a history of the smoking, or tobacco-related health factors, that were collected on or before the date of the Encounter. The data comes from the [place] facility where the Encounter took place. Date/Time Smoking Status/Tobacco Use Comment F acility Mar 11, 2023 08:30 AM [place]-TOBACCO QUIT 15 YRS OR MORE [facility] Dec 27, 2020 02:00 PM [place] FOR[facility]ER [facility] Dec 27, 2020 02:00 PM [facility] Advance Directives: All historical and current [...] Encounter Note(s) Provider Source Sep 23, 2024 09:56 AM TELEPHONE ENCOUNTE R NOTE: LOCAL TITLE: TELEPHONE NOTE/SPECIALTY CLINIC STANDARD TITLE: TELEPHONE ENCOUNTER NOTE DATE OF NOTE: SEP 23, 2024@09:56 ENTRY DATE: SEP 23, 2024@09:57:03 AUTHOR: NELLA CIFUENTES EXP COSIGNER: URGENCY: STATUS: COMPLETED Called and spoke with pt to remind them that they have a VVC appt with the Pain clinic on 09/24/2024 at 1200. /lora/ NELLA CIFUENTES [employer] OFFICER Signed: 09/23/2024 09:57 NELLA CIFUENTES [facility]
--- OUTSIDE RECORDS SUMMARY | 2024-09-30 08:46 | XMS_ITS ---
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 [place] Organization [facility] [place] [facility] [place] Address [address] [place] [address] Care Team Providers Care Compensation And Benefits Analyst Name Role Phone CHANI RHODES Primary [...] to Policy Zayas [employer] DENTAL [employer]URANCE [facility] H[facility] February 03, 2022 [id number] EMERITA BAUTISTA PATIENT [facility] MEDICAID MEDICAID MEDIC AID Oct 06, 2013 MEDICAI D [id number] EMERITA BAUTISTA PATIENT MEDICARE (WNR) MEDICARE (M) PART A Mar 06, 2015 PART A [id number] EMERITA BAUTISTA PATIENT MEDICARE (WNR) MEDICARE (M) PART B Mar 06, 2015 PART B [id number] [phone] EMERITA BAUTISTA PATIENT MEDICARE (WNR) MEDICARE (M) PART B Mar 06, 2015 PART B [id number] EMERITA BAUTISTA PATIENT MEDICARE (WNR) MEDICARE (M) PART A Mar 06, 2015 PART A [id number] EMERITA BAUTISTA PATIENT MEDICARE (WNR) MEDICARE (M) PART B Mar 06, 2015 PART B [id number] EMERITA BAUTISTA PATIENT MEDICARE (WNR) MEDICARE (M) PART A Mar 06, 2015 PART A [id number] EMERITA BAUTISTA PATIENT MEDICARE (WNR) MEDICARE (M) PART B Mar 06, 2015 PART B [id number] EMERITA BAUTISTA PATIENT Selected Encounter This section includes the information on record at [place] for the Encounter. Date/Time Encounter Type Encounter Description Reason Provider Source Sep 24, 2024 12:00 PM OFFICE O/P EST HI 40 MIN PAIN CLINIC ICD-10-CM M15.9 Polyosteoarthriti s, unspecified KUPFERSCHMID,S ETH B IHE Encounter Template Text not used by [place] Assessments - Encounter Diagnoses This section includes the primary and secondary diagnoses documented for the Encounter. Date/Time Primary/Secondary Diagnosis Diagnosis Name Provider Source Sep 24, 2024 12:32 PM PRIMARY Polyosteoarthriti s, unspecified KUPFERSCHMID,S ETH B [place] [facility] [place] [facility] Sep 24, 2024 12:32 PM SECONDARY Radiculopathy, cervical region KUPFERSCHMID,S ETH B [place] [facility] [place] [facility] Sep 24, 2024 12:32 PM SECONDARY Type 2 diabetes mellitus with diabetic neuropathy, unsp KUPFERSCHMID,S ETH B [place] [facility] [place] [facility] Plan of Treatment: Future Appointments (+ 6 months) and Future Tests (+/- 45 days) The Plan of Treatment section includes future care activities for the patient from all [place] treatmentfacilities. This section includes future appointments and future orders which are active, pending or scheduled. Future Appointments This section includes appointments that were scheduled to occur 6 months from the date of the Encounter, up to a maximum of 20 appointments. The data comes from all [place] treatment facilities. Appointment Date/Time Appointment Type Appointme nt Facility Name Sep 30, 2024 08:55 AM AMBULATORY - MEDICINE [facility] [place] [facility] Oct 15, 2024 08:00 AM AMBULATORY - MEDICINE [place] Oct 27, 2024 09:30 AM AMBULATORY - MEDICINE [place] [facility] [place] [facility] Nov 04, 2024 03:00 PM AMBULATORY - MEDICINE [facility] [place] [facility] Nov 18, 2024 09:30 AM AMBULATORY - NONE [place] Nov 18, 2024 09:30 AM AMBULATORY - [place]ICINE [place] [facility] Jan 20, 2025 10:00 AM AMBULATORY - MEDICINE [facility] Active, Pending, and Scheduled Orders This section includes a listing of several types of active, pending, and scheduled orders, including clinic medications orders, diagnostic test orders, procedure orders and consult orders; where the start date of the order is 45 days before the date of the Encounter or 45 days after the date of theEncounter. The data comes from all [place] treatment facilities. Test Date/Time Test Type Test Details Facility Name Aug 25, 2024 01:01 PM Consult Order [facility] Cons Chief Internal Auditor's Choice [facility] Sep 16, 2024 08:39 PM Consult Order HEPATOLOGY SERVICES IF WHAV Cons Chief Internal [facility] Sep 21, 2024 12:00 AM Laboratory - Chemistry Order AMPHETAMINES SCREEN PANEL URINE (DRUG) SP [facility] [place] [facility] Sep 21, 2024 12:00 AM Laboratory - Chemistry Order ALCOHOL, ETHYL URINE PANEL URINE (DRUG) SP [facility] [place] [facility] Sep 21, 2024 12:00 AM Laboratory - Chemistry Order FENTANYL SCREEN PANEL URINE (DRUG) SP [facility] [place] [facility] Sep 21, 2024 12:00 AM Laboratory - Chemistry Order BENZODIAZEPINES SCREEN PANEL URINE (DRUG) SP [facility] [place] [facility] Sep 21, 2024 12:00 AM Laboratory - Chemistry Order BUPRENORPHINE SCREEN PANEL URINE (DRUG) SP [facility] [place] [facility] Sep 21, 2024 12:00 AM Laboratory - Chemistry Order CANNABINOIDS SCREEN PANEL URINE (DRUG) SP [facility] [place] [facility] Sep 21, 2024 12:00 AM Laboratory - Chemistry Order COCAINE SCREEN PANEL URINE (DRUG) SP [facility] [place] [facility] Sep 21, 2024 12:00 AM Laboratory - Chemistry Order METHADONE SCREEN URINE SP [facility] Sep 21, 2024 12:00 AM Laboratory - Chemistry Order OXYCODONE SCREEN PANEL URINE (DRUG) SP [facility] Sep 21, 2024 12:00 AM Laboratory - Chemistry Order OPIATES SCREEN PANEL URINE (DRUG) SP [facility] Lab Results: +/- 30 days of the encounter This section includes the Chemistry and Hematology Lab Results on record with [place] for the patient. Radiology Reports and Pathology Reports are provided separately, in subsequent sections. Lab Results This section contains the Chemistry/Hematology Results that were resulted 30 days before or 30 daysafter the date of the Encounter. Date/Time Source Result Type Result - Unit Interpretation Reference Range Comment Sep 07, 2024 09:20 AM [facility] TSH Specimen Type: SERUM No comment entered. Ordering Provider: CHANI RHODES Report Released Date/Time: Sep 06, 2024 01:20 PM Reporting Lab: [address] [address] Performing Lab: [address] [address] TSH 1.86 u[IU]/mL 0.35-5.00 Sep 07, 2024 09:20 AM [facility] PSA Specimen Type: SERUM No comment entered. Ordering Provider: CHANI RHODES Report Released Date/Time: Sep 06, 2024 01:20 PM Reporting Lab: [address] [address] Performing Lab: [address] [address] PSA 0.33 ng/mL 0.00-4.00 Sep 07, 2024 09:20 AM [facility] LIPID PANEL FASTING Specimen Type: SERUM Comment: Hemolysis present analysis cannot be performed. Hemolysis present may falsly elevate Potassium Total and Direct Bili, Iron, AST, %Fe. Ordering Provider: CHANI RHODES Report Released Date/Time: Sep 06, 2024 01:20 PM Reporting Lab: [address] [address] Performing Lab: [address] [address] CHOLESTEROL 131 mg/dL TRIGLYCERIDE 219 mg/dL H 0-150 LDL calculated 55 mg/dL 0-129 CHOL/HDL 4.1 HDL CHOLESTEROL 32 mg/dL L 40-60 Sep 07, 2024 09:20 AM [facility] HEMOGLOBIN A1C PANEL Specimen Type: BLOOD Comment: [...] Sep 06, 2024 01:20 PM Reporting Lab: [address] [address] Performing Lab: [address] [address] HEMOGLOBIN A1C 8.1 H 4.0-5.6 Sep 07, 2024 09:20 AM [facility] LIVER FUNCTION Specimen Type: SERUM Comment: Hemolysis present analysis cannot be performed. Hemolysis present may falsly elevate Potassium Total and Direct Bili, Iron, AST, %Fe. Ordering Provider: CHANI RHODES Report Released Date/Time: Sep 06, 2024 01:20 PM Reporting Lab: [address] [address] Performing Lab: [address] [address] PROTEIN,TOTAL 7.5 g/dL 6.0-8.3 ALBUMIN 3.9 g/dL 3.5-5.0 ALKALINE PHOSPHATASE 80 U/L 40-150 AST 34 U/L 5-34 ALT 56 U/L H BILIRUBIN, TOTAL comment mg/dL 0.2-1.2 BILIRUBIN, DIRECT comment mg/dL 0-0.5 Sep 07, 2024 09:20 AM [facility] BASIC METABOLIC PANEL (fasting) Specime n Type: SERUM Comment: Hemolysis present analysis cannot be performed. Hemolysis present may falsly elevate Potassium Total and Direct Bili, Iron, AST, %Fe. Ordering Provider: CHANI RHODES Report Released Date/Time: Sep 06, 2024 01:20 PM Reporting Lab: [address] [address] Performing Lab: [address] [address] UREA NITROGEN 15 mg/dL 7-25 GLUCOSE 176 mg/dL H 65-100 SODIUM 139 mmol/L 135-145 POTASSIUM 4.4 mmol/L 3.5-5.0 CHLORIDE 104 mmol/L 100-110 CO2 23 meq/L 20-30 CREATININE, Serum 1.15 mg/dL 0.50-1.40 eGFR(CKD-EPI 2020) 73 mL/min >60 Sep 07, 2024 09:20 AM [facility] MICROALBUMIN CREATININE RATIO PANEL Spe cimen Type: URINE No comment entered. Ordering Provider: CHANI RHODES Report Released Date/Time: Sep 06, 2024 01:20 PM Reporting Lab: [address] [address] Performing Lab: [address] [address] MICROALBUMIN/C REATININE RATIO 18.2 mg/g 0-29.9 MICROALBUMIN,Q UANTITATIVE 0.9 mg/dL RR UNAVAIL CREATININE URINE 49.56 mg/dL Sep 07, 2024 09:20 AM [facility] URINALYSIS Specimen Type: URINE Comment: If Glucose = >500 and Ketones are positive, please alert the Physician. Ordering Provider: CHANI RHODES Report Released Date/Time: Sep 06, 2024 01:20 PM Reporting Lab: [address] [address] Performing Lab: [address] [address] UA COLOR Colorless Yellow UA APPEARANCE Clear Clear UA GLUCOSE >1000 mg/dL Negative UA KETONES NEGATIVE mg/dL Negative UA BLOOD NEGATIVE mg/dL Negative UA PROTEIN NEGATIVE mg/dL Negative UA NITRITE NEGATIVE mg/dL Negative UA BILIRUBIN NEGATIVE mg/dL Negative UA SPECIFIC GRAVITY 1.023 H 1.016-1.022 UA pH 6.0 5.0-9.0 UA UROBILINOGEN Normal mg/dL <2.0 UA LEUKOCYTE NEGATIVE Negative Sep 07, 2024 09:20 AM [facility] CBC AND DIFF (AUTO) Specimen Type: BLOOD No comment entered. Ordering Provider: CHANI RHODES Report Released Date/Time: Sep 06, 2024 01:20 PM Reporting Lab: [facility] [address] [facility] [address] Performing Lab: [facility] [address] [address] WBC 5.45 10*3/uL 4.50-11.00 RBC 5.45 10*6/uL [...] and tobacco- related health factors from the [place] facility where the Encounter took place. Current Smoking Status This section includes the most current smoking, or tobacco-related health factor, from the [place] facility where the Encounter took place. Date/Time Current Smoking Status Comment Ana bianchi Mar 11, 2023 08:30 AM VA-TOBACCO FORMER USER [facility] Tobacco Use History This section includes a history of the smoking, or tobacco-related health factors, that were collected on or before the date of the Encounter. The data comes from the [place] facility where the Encounter took place. Date/Time Smoking Status/Tobacco Use Comment F acraul Mar 11, 2023 08:30 AM [place]-TOBACCO QUIT 15 YRS OR MORE [facility] Dec 27, 2020 02:00 PM VA-TOBACCO FORMER USER [facility] Dec 27, 2020 02:00 PM [place]-TOBACCO QUIT 15 YRS OR MORE [facility] Advance Directives: All historical and current Section Date Range: From patient's date of to the date document was created. This section includes ALL of a patient's completed or amended [place] Advance and Rescinded Directives. The entries below indicate that a directive exists for the patient, but an actual copy is not included with this document. The data comes from all [place] facilities. Date Advance Directives Provider Source May 23, 2011 ADVANCE DIRECTIVE JUD BROOKS Encounter Notes: All associated encounter notes This section contains the clinical notes associated to the Encounter. Date/Time Encounter Note(s) Provider Source Sep 24, 2024 12:03 PM PAIN MEDICINE OUTPATIENT NOTE: LOCAL TITLE: PAIN CLINIC NOTE STANDARD TITLE: PAIN MEDICINE OUTPATIENT NOTE DATE OF NOTE: SEP 24, 2024@12:03 ENTRY DATE: SEP 24, 2024@12:03:32 AUTHOR: SABA KINCAID EXP COSIGNER: URGENCY: STATUS: COMPLETED CURRENT ======= Sleeping better, less pain during day. Gabapentin 1 in day time, 2 at night. I wake up refreshed now. Since I have been feeling better, things have been going my way! I am 90% now. In a better place today. He did not speak about pain, limitations, frustration from , fatigue. He had a smile, spoke about improved sleep, looking forward to [facility] with family, ready to go to movies (was not able over ). Turns 59 next week. His is taking him for an overnight. ASSISTIVE DEVICES Cane PAIN-RELATED PROBLEMS DDD DJD, right hip, right knee SURGICAL HISTORY Left knee replacement, around 2020 Arch repair Knee arthroscopy RELEVANT MEDICATION HISTORY Gabapentin - sedating No prescribed opioids in past RISK MITIGATION PDMP last date: 09/24/2024 UDS last date: LTOT consent: 05/2024 [employer] FROM Jun TO Apr Service Connected Disabilities with % Eligibility: SERVICE CONNECTED 50% to 100% VERIFIED Total S/C %: 90 LIMITED EXTENSION OF KNEE 10% KNEE PROSTHESIS 30% LIMITED FLEXION OF KNEE 10% LIMITED EXTENSION OF KNEE 20% LIMITED MOTION OF ANKLE 20% TINNITUS 10% SOCIAL HISTORY 3 children (son, graciela in college; daughter graduating HS; son NOEMY isaac, excellent cyber software engineer); 3 grown daughters and grandchildren in [facility]. 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 FAMILY HISTORY SUBSTANCE USE HISTORY Tobacco: None ETOH: None; stopped 20 years ago. Marijuana: None. Illicit drugs: Past, including pills. = ASSESSMENT and PLAN = 58 year old [employer] [place], 70% service-connected for musculoskeletal injuries, with DDD and DJD affecting his low back and right knee; he has mid-back and neck pain also. 09/24/2024 Much improvement. PAIN - DJD knees and hips -Butrans 15 mcg/hour (increase) -Vicodin 5 mg bid -Gabapentin 100 mg am and 200 mg qhs Getting counseling, which is a step forward for [place]. ORTHO Appt next week MOOD, QUALITY of LIFE Pain diminishess his enjoyment of family, he is not able to be active, he would like to retire due to pain. His mood is depressed because of pain. GOALS Improve mood, increase ability to enjoy family life, help be able to return to sabianism activities. and I formulated the plan through shared medical-decision making. [place] repeated the plan back to me and had no further questions at end of appointment. APPOINTMENT LENGTH: 40 minutes FOLLOW-UP: 4-6 weeks 09/30/2024 08:55 COM CARE-ORTHO GEN 10/15/2024 08:00 CWM/SO/PODIATRY/ROSS 10/27/2024 09:30 CWM/SO/PHARM/PACT 2 11/18/2024 09:30 SOP-V01 [facility] LIVER MD-02 P 05/03/2025 10:00 NHM/OPTOMETRY/WELSH/ MEDICATION and RECONCILIATION Active Outpatient Medications (including Supplies): Active Outpatient Medications Status 1) ACETAMINOPHEN 325MG TAB TAKE TWO TABLETS BY MOUTH THREE ACTIVE TIMES DAILY NEEDED Indication: FOR PAIN 2) ACETAMINOPHEN 500MG TAB TAKE TWO TABLETS BY MOUTH THREE ACTIVE TIMES DAILY NEEDED FOR PAIN 3) ATORVASTATIN CALCIUM 80MG TAB TAKE ONE TABLET BY MOUTH AT ACTIVE BEDTIME Indication: FOR HIGH CHOLESTEROL 4) BUPRENORPHINE 10MCG/HR PATCH APPLY 1 PATCH TO SKIN EVERY 5 ACTIVE DAYS (REMOVE PATCH BEFORE APPLYING A NEW PATCH) Indication: FOR SEVERE CHRONIC PAIN 5) CARBOXYMETHYLCELLULOSE NA 0.5% OPH SOLN INSTILL 1 DROP INTO ACTIVE EACH EYE FOUR TIMES A DAY Indication: FOR DRY EYE 6) CHOLECALCIF 50MCG (D3-2,000UNIT) TAB TAKE ONE TABLET BY ACTIVE MOUTH ONCE DAILY FOR VITAMIN SUPPLEMENTATION Indication: FOR VITAMIN D DEFICIENCY 7) CYCLOBENZAPRINE HCL 10MG TAB TAKE ONE TABLET BY MOUTH TWICE ACTIVE DAILY NEEDED Indication: FOR MUSCLE SPASM 8) EMPAGLIFLOZIN 25MG TAB TAKE ONE TABLET BY MOUTH ONCE DAILY ACTIVE Indication: FOR TYPE 2 DIABETES MELLITUS 9) GABAPENTIN 300MG CAP TAKE TWO CAPSULES BY MOUTH THREE TIMES ACTIVE (S) A DAY Indication: FOR NERVE PAIN 10) GLUCOSE 4GM CHEW TAB CHEW FOUR TABLETS BY MOUTH NEEDED ACTIVE Indication: FOR LOW BLOOD SUGAR 11) GLUCOSE SENSOR DEXCOM G7 USE 1 SENSOR DIRECTED EVERY 10 ACTIVE DAYS 12) HYDROCODONE 5MG/ACETAMINOPHEN 325MG TAB TAKE 1 TABLET BY ACTIVE MOUTH TWICE DAILY NEEDED Indication: FOR PAIN 13) INSULIN,ASPART(EQV-NOVLG)100UN/ ML FLXPEN INJECT 27 UNITS ACTIVE SUBCUTANEOUSLY THREE TIMES A DAY BEFORE MEALS INJECT 15 MINUTES BEFORE MEALS IF MEAL SKIPPED SKIP THE DOSE Indication: FOR DIABETES 14) INSULIN,GLARGINE-YFGN 100UNIT/ML PEN 3ML INJECT 46 UNITS ACTIVE SUBCUTANEOUSLY TWICE DAILY Indication: FOR DIABETES 15) LIDOCAINE 5% PATCH APPLY 1 PATCH TOPICALLY ONCE DAILY ACTIVE NEEDED (LEAVE PATCH ON FOR 12 HOURS, THEN REMOVE PATCH) Indication: BACK PAIN 16) LISINOPRIL 5MG TAB TAKE ONE TABLET BY MOUTH ONCE DAILY TO ACTIVE CONTROL BLOOD PRESSURE 17) METFORMIN HCL 750MG 24HR SA TAB TAKE ONE TABLET BY MOUTH ACTIVE ONCE DAILY Indication: FOR TYPE 2 DIABETES MELLITUS 18) SEMAGLUTIDE 0.25MG/0.375ML INJ PEN 3ML INJECT 0.5MG ACTIVE SUBCUTANEOUSLY ONCE A WEEK Indication: FOR TYPE 2 DIABETES MELLITUS ACTIVE PROBLEMS Active problems - Computerized Problem List is the source for the followin. Long-term current use of opiate analgesic drug 2. Obesity 3. Osteoarthritis of multiple joints 4. Degeneration of lumbar intervertebral disc 5. Cervical radiculopathy 6. HTN - Hypertension ([facility] [id number]) 7. Allergic Rhinitis ([facility] [id number]) 8. Vitamin D Deficiency ([facility] [id number]) 9. Hyperlipidemia ([facility] [id number]) 10. Fatty liver 11. Depression 12. History of surgery 13. Diabetic neuropathy 14. Erectile dysfunction 15. Type 2 diabetes mellitus 16. Under care of multiple providers 17. Bilateral hearing loss 18. Bilateral tinnitus Appointment length includes time with [place], completing clinical reminders, reviewing relevant information in EMR, review of PDMP, ordering appropriate tests, prescribing medications, coordinating care, and completing the medical record. Any quotations may not be exact and are intended to convey the effect of what the was saying. [place] [employer] ([facility]) Standard Documentation [facility] Clinician Resources Only: E911 (Emergency Call Relay Center): [phone] National Veterans Crisis Line - 988 then press #1. [facility] Suicide Coordinator [phone], Ext. [phone]; Back-up Ext. [phone] [place] Police, ROBERT, Astrid [phone] Introduction: Visit is being conducted by [employer]. [place] identified with 2 identifiers: [X] Full Name [X] Date of [ ] [place] ID Card Emergency Plan: confirmed and/or provided the following information in case of emergency or technology failure. PATIENT PHONE - PHONE NUMBER [CELLULAR] - Is patient phone number correct, if not, enter below: [place]'s phone number: EMERITA BAUTISTA [address], [place], [address] 's present location and address for appointment: Home 's emergency contact name and phone number: Listed reported that location is private and safe: Yes Informed Consent: [place] informed of the risks and benefits of Telehealth video care. has the right to refuse video services. If refuses video visit, a mmri-gc-ackl visit will be scheduled. verbalized consent for this video visit: Yes provided consent for any other persons present for visit: No If yes, who and relationship to patient: Secure visit: Visit was locked for security and privacy:Yes /lora/ SABA KINCAID MD PHYSICIAN Signed: 09/24/2024 12:32 SABA KINCAID [facility]
--- OUTSIDE RECORDS SUMMARY | 2024-09-30 08:46 | XMS_ITS | Encounter Summary ---
Author Name [facility] [place] [facility] [place] [facility] [place] Address [address] [place] [address] Care Team Providers Care Property Loss Insurance Claim Adjuster Name Role Phone CHANI RHODES Primary Care [...] [facility] H[facility] February 03, 2022 [id number] EMERITA BAUTISTA PATIENT [facility] MEDICAID MEDICAID MEDIC AID Oct 06, 2013 MEDICAI D [id number] EMERITA BAUTISTA PATIENT MEDICARE (WNR) MEDICARE (M) PART A Mar 06, 2015 PART A [id number] EMERITA BAUTISTA PATIENT MEDICARE (WNR) MEDICARE (M) PART B Mar 06, 2015 PART B [id number] EMERITA BAUTISTA PATIENT MEDICARE (WNR) MEDICARE (M) PART B Mar 06, 2015 PART B [id number] EMERITA BAUTISTA PATIENT MEDICARE (WNR) MEDICARE (M) PART A Mar 06, 2015 PART A [id number] EMERITA BAUTISTA PATIENT MEDICARE (WNR) MEDICARE (M) PART B Mar 06, 2015 PART B [id number] [phone] EMERITA BAUTISTA PATIENT MEDICARE (WNR) MEDICARE (M) PART B Mar 06, 2015 PART B [id number] [phone] EMERITA BAUTISTA PATIENT MEDICARE (WNR) MEDICARE (M) PART A Mar 06, 2015 PART A [id number] [phone] EMERITA BATUISTA PATIENT Selected Encounter This section includes the information on record at [place] for the Encounter. Date/Time Encounter Type Encounter Description Reason Pro vider Source Aug 04, 2024 12:00 AM Outpatient Encounter COMMUNITY CARE CONSULT I[facility] Encounter Template Text not used by [place] Plan of Treatment: Future Appointments (+ 6 months) and Future Tests (+/- 45 days) The Plan of Treatment section includes [facility] care [facility] for the [facility] [place] [facility]. This section includes future appointments [...] 05, 2024 09:30 AM AM[place]ULATORY [place] [facility] [place] [facility] Aug 19, 2024 09:00 AM AMBULATORY - MEDICINE [facility] Aug 24, 2024 11:00 AM AMBULATORY - PSYCHIATRY [place] [facility] [place] [facility] Aug 24, 2024 03:00 PM AMBULATORY - RE[place]AB MEDICIN [place] Aug 27, 2024 10:00 AM AMBULATORY - MEDICINE [place] [facility] [facility] Sep 16, 2024 08:30 AM AMBULATORY - MEDICINE [facility] Sep 23, 2024 03:30 PM AMBULATORY - MEDICINE [place] [facility] [place] [facility] Sep 24, 2024 12:00 PM AMBULATORY - MEDICINE [place] [facility] [facility] Sep 30, 2024 08:55 AM AMBULATORY - MEDICINE [place] [facility] [place] [facility] Oct 15, 2024 08:00 AM AMBULATORY - MEDICINE [place] Oct 27, 2024 09:30 AM AMBULATORY - MEDICINE [place] [facility] [facility] Nov 04, 2024 03:00 PM AMBULATORY - MEDICINE [place] [facility] [place] [facility] Nov 18, 2024 09:30 AM AMBULATORY - NONE [place] Nov 18, 2024 09:30 AM [place]IC[place] [facility] Jan 20, 2025 10:00 AM AMBULATORY - MEDICINE [facility] Active, Pending, and Scheduled Orders This section includes a listing of several types of active, pending, and scheduled orders, including clinic medications orders, diagnostic test orders, procedure orders and consult orders; where the start date of the order is 45 days before the date of the Encounter or 45 days after the date of theEncounter. The data comes from all [place] treatment facilities. Test Date/Time Test Type Test Details Facility Name Jul 14, 2024 04:18 PM Consult Order COMMUNITY CARE-BH PSYCHOTHERAPY [facility] Aug 25, 2024 01:01 PM Consult Order COMMUNITY CARE-ORTHO GENERAL [facility] Sep 16, 2024 08:39 PM Consult Order HEPATOLOGY SERVICES [facility] Social History: Smoking Status (Most current) [...] Facil ity Mar 11, 2023 08:30 AM [place]-TOBACCO QUIT 15 YRS OR MORE [facility] Tobacco Use History This section includes a history of the smoking, or tobacco-related health factors, that were collected on or before the date of the Encounter. The data comes from the [place] facility where the Encounter took place. Date/Time Smoking Status/Tobacco Use Comment F [facility] Mar 11, 2023 08:30 AM [place]-[facility] [facility] YRS OR MORE [facility] Dec 27, 2020 02:00 PM [place] Dec 27, 2020 02:00 PM [place]-TOBAC[place] QUIT 15 YRS OR MORE [facility] Advance Directives: All historical and current Section Date Range: From patient's date of to the date document was created. This section includes ALL of a patient's completed or amended [place] Advance and Rescinded Directives. The entries below [...] Encounter. Date/Time Encounter Note(s) Provider Source Aug 04, 2024 12:00 AM NONVA CONSULT: LOCAL TITLE: COMMUNITY CARE-CONSULT RESULT NOTE STANDARD TITLE: NONVA CONSULT DATE OF NOTE: AUG 04, 2024 ENTRY DATE: SEP 08, 2024@14:55:39 AUTHOR: DAV LEARY EXP COSIGNER: URGENCY: STATUS: COMPLETED VistA Imaging - Scanned Document SCANNED DOCUMENT SIGNATURE NOT REQUIRED Electronically Filed: 09/08/2024 by: DAV WASLH [facility]
[2024-09-30 08:48] VITALS: BMI 32.7
== END 2024-09-30 09:17 | disposition home or self-care (01) ==
PROVIDERS: Visit Provider Orthopaedic Surgery
DX: S83.242A Other tear of medial meniscus, current injury, left knee, initial encounter (principal)
CPT/HCPCS: 99203; G2211

== ENCOUNTER → 2024-10-05 12:33 | Outpatient (BNV) | payer OTHER, SELFPAY | PROVIDERS: Visit Provider Radiology Diagnostic Radiology | DX: M17.12 Unilateral primary osteoarthritis, left knee (principal); M25.462 Effusion, left knee | CPT/HCPCS: 73721 ==

== ENCOUNTER 2024-10-05 12:51 | Outpatient (REF) | payer OTHER, SELFPAY ==
--- NOTE | ~2024-10-05 | MR_ITS ---
CLINICAL HISTORY: S83.242A - Other tear of medial meniscus, current injury, left knee, ini... Exam: MRI of the left knee without intravenous contrast. Comparison: Radiographs September 30, 2024. Findings: The anterior and posterior cruciate ligaments are intact. No meniscal tears. Tendinopathy of the distal quadriceps tendon and the proximal to mid patellar tendon. A large bony excrescence of the inferior aspect of the patella seen on the patient's radiographs. There is thickening increased signal intensity throughout the proximal to mid patellar tendon with Bettie tendinous edema. Less pronounced findings are seen of the distal quadriceps tendon. There is edema within the quadriceps fat pad. Also induration throughout Hoffa's fat pad. No tendon tear is seen. Medial collateral ligament and lateral collateral complex are intact. Moderate to severe degenerative change of the patellofemoral joint. Extensive cartilage loss of the lateral trochlear facet lateral facet of the patella with subcortical cystic changes subcortical bone marrow edema. There is near [id number] alignment between the lateral trochlear facet and lateral facet of the patella. Mild degenerative change of the medial compartment and lateral compartment. Moderate-sized knee joint effusion. 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 No cruciate ligament, collateral ligament, or meniscal tear. This document has been electronically signed by: Dionisio Adams MD on 10/06/2024 06:40:07
== END 2024-10-05 12:52 | disposition home or self-care (01) ==
LOC: HO.MRI 12:51
PROVIDERS: Visit Provider Orthopaedic Surgery
DX: S83.242A Other tear of medial meniscus, current injury, left knee, initial encounter (principal)
CPT/HCPCS: 73721

== ENCOUNTER 2024-10-11 10:08 | Outpatient (AMB) | payer OTHER, SELFPAY ==
--- NOTE | 2024-10-11 10:09 | MHC.OFFVIS ---
Intake Visit Reasons: Left knee pain and giving way Intake Note: Stephane is a 58 year old male who presents with complaints of progressively worsening left knee pain and giving way. The patient did undergo right total knee replacement surgery [place] [address] Guillen. He reports mild to moderate discomfort in his right knee. He describes his left knee pain as sharp in nature. He did undergo left knee arthroscopic surgery approximately 10 years ago. He got fairly good relief from that surgery initially. He did re-injure his left knee approximately 1 year ago. Since that time his symptoms have gotten worse in spite of continued non operative treatments. He has had injections in the past. The most recent injection gave him minimal relief. He has also done physical therapy which aggravated his pain. He has failed the last 6 weeks of conservative treatment which has included Tylenol, anti-inflammatory medicines and physical therapy exercises. He states that his left knee will give out several times per day. He wishes to hold off on left total knee replacement surgery for as long as possible. Allergies No Known Allergies Allergy (Verified 10/11/24 10:09) Medication List - Last Reconciled 10/11/24 by Allen Soni MD acetaminophen 1,000 mg PO TID PRN acetaminophen 650 mg PO TID PRN atorvastatin 80 mg PO BEDTIME buprenorphine 10 mcg/hour 1 patch transdermal Q5D buprenorphine 5 mcg/hour 1 patch transdermal Q5D carboxymethylcellulose sodium 0.5% 1 drp ophthalmic (eye) QID cholecalciferol (vitamin D3) 50 mcg PO DAILY cyclobenzaprine 10 mg PO BID empagliflozin 25 mg PO DAILY gabapentin 600 mg PO TID hydrocodone-acetaminophen 5-325 mg 1 tab PO BID PRN insulin aspart U-100 (Novolog FlexPen U-100 Insulin aspart) 27 units subcut TID insulin glargine 46 units subcut BID lidocaine 5% 1 patch topical DAILY lisinopril 5 mg PO DAILY semaglutide 0.5 mg subcut [facility] Surgical History H/O knee surgery Physical Exam Const Other: Well-nourished well-developed very friendly male awake alert and oriented x3 in no acute distress Extrem Other: Left knee examination shows a minimal effusion, mild crepitus with range of motion, tenderness along his medial joint line, positive Richard's test, no instability Results Reviewed Results Reviewed: Standing full weight-bearing x-rays of the patient's left knee show mild to moderate diffuse joint space narrowing, no acute bony abnormalities MRI of the patient's left knee shows mild to moderate degenerative changes as well as tearing of the anterior horn of the medial meniscus Assessment & Plan Assessment & Plan (1) Tear of medial meniscus of left knee: Code(s): S83.242A - Other tear of medial meniscus, current injury, left knee, initial encounter Category: Medical Plan Mr. Rivera presents with progressively worsening left knee pain due to a medial meniscus tear and degenerative joint disease. I had a lengthy discussion with the patient regarding the treatment options. Wishes to hold off on left total knee replacement surgery for as long as possible. I agree with this plan. Because the patient has significant mechanical symptoms he may indeed get significant relief from revision left knee arthroscopic surgery. The patient does understand that he may not get 100% relief of his symptoms depending on the severity of his degenerative changes. The risks and benefits of left knee arthroscopic surgery were discussed at length with the patient. The patient wishes to proceed with surgery. Surgery will most likely involve left knee arthroscopic partial medial meniscectomy. The patient will be scheduled for next available date. He will follow-up as instructed. I spent 20 minutes in reviewing the patient's records and imaging studies, seeing the patient and documenting in the medical record. Coding Level of Care Code Est Pt Level 3 (47297) Complex EM visit Add On G2211 Diagnoses Tear of medial meniscus of left knee S83.242A
--- OUTSIDE RECORDS SUMMARY | 2024-10-11 11:05 | XMS_ITS | Continuity of Care Document ---
Author Name [facility] Organization [facility] Care Team Providers Care Commander Internal Affairs Name Role Phone [facility] Unavailable Unavailable Problems Combined list of problems from Department of Defense and Veterans Affairs facilities. It does not include entries that were removed or entered in error. Problem Status Onset Date Problem Type Date of Resolution Comments Source Diabetes Mellitus Type II or unspecified Inactive 10/06/19 06 Condition 05/13/2017 [place] Allergic Rhinitis ([facility] [id number]) Active Condition [place] Bilateral hearing loss Active Condition [place] Bilateral tinnitus Active Condition [place] Cervical radiculopathy Active Condition Sep 11, 2024 Entered By: CHANI RHODES Comment: 12/25/23 MRI [place] Degeneration of lumbar intervertebral disc Active Condition Sep 11, 2024 Entered By: CHANI RHODES Comment: 06/17/23 MRI lumbar spine [place] Depression Active Condition [place] Diabetic neuropathy Active Condition [place] Erectile dysfunction Active Condition [place] Fatty liver Active Condition Sep 11, 2024 Entered By: CHANI RHODES Comment: 03/08/24 US showed steatosis, fibrosis [place] History of surgery Active Condition May 13, 2017 Entered By: MYRNA LEAL Comment: s/p L foot surgery @2011 for collapsed archDec 2023 Entered By: CHANI RHODES Comment: lap terrell 1Dec 2023 Entered By: HCANI RHODES Comment: appendectomyDe 2023 Entered By: CHANI RHODES Comment: right and left knee meniscectomy - service connectedDec 2023 Entered By: CHANI RHODES Comment: right TKA - service connectedDe 2023 Entered By: CHANI RHODES Comment: urethral surgery for obstruction [place] HTN - Hypertension (SCT 66808276) Active Condition [place] Hyperlipidemia ([facility]CT [id number]) Active Condition [place] Impotence Active Condition [facility] Long-term current use of opiate analgesic drug Active Condition Sep 11, 2024 Entered By: CHANI RHODES Comment: consent 11/15/2015Dec 2023 Entered By: CHANI RHODES Comment: sees pain management [facility] Obesity Active Condition Sep 11 Entered By: CHANI RHODES Comment: 04/19/24 BMI 32Dec 2023 Entered By: CHANI RHODES Comment: 09/16/24 BMI 33 [facility] Obstructive sleep apnoea of adult Active Condition Oct 09, 2024 Entered By: CHANI RHODES Comment: cpap [facility] Osteoarthritis of multiple joints Active Condition Sep 11, 2024 Entered By: CHANI RHODES Comment: b/l knees, right ankleDec 2023 Entered By: CHANI RHODES Comment: XR knees 04/27/24 [place] Type 2 diabetes mellitus Active Condition Nov 14, 2022 Entered By: SOM STANFORD Comment: See Diabetic PHARM D Note Dated Nov Entered By: CHANI RHODES Comment: 09/07/24 A1c 8.3 [place] Under care of multiple providers Active Condition Sep 11, 2024 Entered By: CHANI RHODES Comment: community PCP - Dr. Worrell NILS Vitamin D Deficiency ([facility] [id number]) Active Condition [place] : Rt Flank Paiin Inactive Condition 05/13/2017 Dec 07, 2009 Entered By: MARIA E CLAYTON RA Comment: Decreased Urinary Flow [place] Abdominal discomfort Inactive Condition 12/12/2023 [place] Acute diarrhoea Inactive Condition 12/12/2023 [facility] Blurred vision (ICD-9-CM 368.8) Inactive Condition 05/13/2017 [facility] Edema of lower leg Inactive Condition 09/11/2024 [place] Elevated blood pressure reading without diagnosis of hypertension Inactive Condition 05/13/2017 [place] H: [phone] & C: [phone] Inactive Condition 05/13/2017 [place] Onychomycosis of toenails Inactive Condition 09/11/2024 [facility] Other symptoms involving abdomen and pelvis Inactive Condition 05/13/2017 May 16, 2011 Entered By: SOM STANFORD Comment: Non-Descript ABD Pain May Entered By: SOM STANFORD Comment: CT, ABD MAY 16: No Acute Patholgy, +Fatty Liver,May 16, 2011 Entered By: SOM STANFORD Comment: +Benign Cysts Both Kidneys, +Colonic Diverticulae [place] Unemployment * Inactive Condition 05/13/2017 [facility] Diagnosis: ICD-10-CM E11.9 Type 2 diabetes mellitus without complications Active Diagnosis [place] Diagnosis: ICD-10-CM M15.9 Polyosteoarthriti s, unspecified Active Diagnosis [facility] Diagnosis: ICD-10-CM M25.561 Pain in right knee Active Diagnosis [facility] Diagnosis: ICD-10-CM M54.50 Low back pain, unspecified Active Diagnosis [facility] Diagnosis: ICD-10-CM M25.569 Pain in unspecified knee Active Diagnosis [facility] Diagnosis: ICD-10-CM Z71.89 Other specified counseling Active Diagnosis [place] Diagnosis: ICD-10-CM G50.1 Atypical facial pain Active Diagnosis [place] Diagnosis: ICD-10-CM Z46.0 Encounter for fit/adjst of spectacles and contact lenses Active Diagnosis [facility] Diagnosis: ICD-10-CM H34.8110 Central retinal vein occls, right eye, with macular edema Active Diagnosis [facility] Diagnosis: ICD-10-CM M19.91 Primary osteoarthritis, unspecified site Active Diagnosis [facility] Diagnosis: ICD-10-CM R10.9 Unspecified abdominal pain [facility] Diagnosis: ICD-10-CM E78.5 Hyperlipidemia, unspecified Active Diagnosis [place] Diagnosis: ICD-10-CM I10 Essential (primary) hypertension Active Diagnosis [place] Diagnosis: ICD-10-CM M54.51 Vertebrogenic low back pain Active Diagnosis [place] Diagnosis: ICD-10-CM Z71.3 Dietary counseling and surveillance Active Diagnosis [place] Diagnosis: ICD-10-CM R11.0 Nausea Active Diagnosis [place] Medications Combined list of outpatient medications from [...] DAILY NEEDED FOR PAIN ORAL ACTIVE 08/20/2025 [id number] 4 MARCK STANFORD HN 2023 200 [place] ACETAMINOPH EN 500MG TAB TAKE TWO TABLETS BY MOUTH THREE TIMES DAILY NEEDED FOR PAIN ORAL ACTIVE 11/28/2024 [id number] 4 VISHNUCA RMEN F 2023 200 [place] AMOXICILLIN TRIHYDRATE 500MG/CLAVU LANATE K 125MG TAB TAKE 1 TABLET BY MOUTH EVERY 12 HOURS WITH FOOD, FOR 10 DAYS ORAL 08/05/2024 [id number] 4 KI EATONKRISTEN LUC 2023 20 [place] ATORVASTATI N CA 80MG TAB TAKE ONE TABLET BY MOUTH AT BEDTIME FOR HIGH CHOLESTE ROL ORAL ACTIVE 11/28/2024 [id number] 4 MYKELLIDIAFrancisco JCA RMEN F 2023 90 [place] BUPRENORPHI NE 10MCG/HR PATCH APPLY 1 PATCH TO SKIN EVERY 5 DAYS (REMOVE PATCH BEFORE APPLYING A NEW PATCH) TRANSD ERMAL DISCONT INUED BY PROVIDE R 02/27/2025 [id number] 4 [facility] 2023 6 [facility] BUPRENORPHI NE 15MCG/HR PATCH APPLY 1 PATCH TO SKIN EVERY 5 DAYS (REMOVE PATCH BEFORE APPLYING A NEW PATCH) TRANSD ERMAL ACTIVE 03/27/2025 [id number] 4 [facility] 2023 6 [facility] BUPRENORPHI NE 5MCG/HR PATCH APPLY 1 PATCH TO SKIN EVERY 5 DAYS (REMOVE PATCH BEFORE APPLYING A NEW PATCH) TRANSD ERMAL DISCONT INUED BY PROVIDE R 09/22/2024 [id number] 4 [facility] B 2023 6 [facility] CARBOXYMETH YLCELLULOSE NA 0.5% SOLN,OPH INSTILL 1 DROP INTO EACH EYE FOUR TIMES A DAY FOR DRY EYE OPHTHA LMIC ACTIVE 05/01/2025 [id number] 4 CRISTIANO WELSH EY J 2023 45 [facility] CHOLECALCIF VINH 50MCG (2,000UNIT) TAB TAKE ONE TABLET BY MOUTH ONCE DAILY FOR VITAMIN SUPPLEME NTATION ORAL ACTIVE 12/15/2024 [id number] 4 SARA MARES RMEN F 2023 100 [place] CYCLOBENZAP RINE HCL 10MG TAB TAKE ONE TABLET BY MOUTH TWICE DAILY NEEDED FOR MUSCLE SPASM ORAL DISCONT INUED BY PROVIDE R 08/20/2025 [id number] 4 MARCK STANFORD 2023 60 [place] CYCLOBENZAP RINE HCL 10MG TAB TAKE ONE TABLET BY MOUTH AT BEDTIME NEEDED FOR MUSCLE SPASM ORAL 12/28/2023 [id number] 4 SARA MARES RMEN F 2023 30 [place] EMPAGLIFLOZ IN 25MG TAB TAKE ONE TABLET BY MOUTH ONCE DAILY ORAL ACTIVE 09/07/2025 [id number] 4 Eli BECKA A 2023 30 [place] EMPAGLIFLOZ IN 25MG TAB TAKE ONE TABLET BY MOUTH ONCE DAILY ORAL DISCONT INUED 10/17/2024 [id number] Eli BECKA A 2023 90 [place] EMPAGLIFLOZ IN 25MG TAB TAKE ONE TABLET BY MOUTH ONCE DAILY ORAL DISCONT INUED 10/07/2024 [id number] Eli BECKA A 2023 60 [place] EMPAGLIFLOZ IN 25MG TAB TAKE ONE TABLET BY MOUTH ONCE DAILY ORAL DISCONT INUED 01/11/2024 [id number] Eli BECKA A 2022 60 [place] GABAPENTIN 100MG CAP TAKE ONE CAPSULE BY MOUTH THREE TIMES A DAY FOR 7 DAYS, THEN TAKE TWO CAPSULES THREE TIMES A DAY FOR 7 DAYS, THEN TAKE THREE CAPSULES THREE TIMES A DAY FOR 16 DAYS ORAL 04/25/2024 [id number] 4 [facility] 2023 207 [facility] GABAPENTIN 100MG CAP TAKE ONE CAPSULE BY MOUTH EVERY MORNING AND TAKE TWO CAPSULES AT BEDTIME FOR NERVE PAIN ORAL 03/11/2024 [id number] 4 Gale RHODES 2023 270 [facility] IELD GABAPENTIN 300MG CAP TAKE TWO CAPSULES BY MOUTH THREE TIMES A DAY ORAL ACTIVE 08/28/2025 [id number] 5 [facility] B 2024 540 [facility] GABAPENTIN 300MG CAP TAKE ONE CAPSULE BY MOUTH THREE TIMES A DAY FOR NERVE PAIN ORAL DISCONT INUED 08/13/2025 [id number] 4 [facility] 2023 270 [facility] GLUCOSE 4GM TAB,CHEW CHEW FOUR TABLETS BY MOUTH NEEDED FOR LOW BLOOD SUGAR ORAL ACTIVE 06/11/2025 [id number] 4 ИРИНА ARAGON 2023 20 [facility] I[place] HYDROCODONE 5MG/ACETAMI NOPHEN 325MG TAB TAKE 1 TABLET BY MOUTH TWICE DAILY NEEDED NEXT FILL 10/25 ORAL ACTIVE 10/24/2024 [id number] 4 [facility] 2023 60 [facility] HYDROCODONE 5MG/ACETAMI NOPHEN 325MG TAB TAKE 1 TABLET BY MOUTH TWICE DAILY NEEDED FOR PAIN ORAL 09/26/2024 [id number] 4 [facility] 2023 60 [facility] HYDROCODONE 5MG/ACETAMI NOPHEN 325MG TAB TAKE 1 TABLET BY MOUTH TWICE DAILY FOR PAIN ORAL 06/20/2024 [id number] 4 [facility] 2023 60 [facility] HYDROCODONE 5MG/ACETAMI NOPHEN 325MG TAB TAKE 1 TABLET BY MOUTH TWICE DAILY FOR PAIN (NEXT FILL 04/19/24) ORAL 04/21/2024 [id number] 4 [facility] 2023 60 [facility] HYDROCODONE 5MG/ACETAMI NOPHEN 325MG TAB TAKE 1 TABLET BY MOUTH TWICE DAILY NEEDED FOR PAIN MAY USE UP TO 3 DAYS PER WEEK (NEXT FILL 03/09/24) ORAL 03/11/2024 [id number] 4 [facility] B 2023 24 [facility] INSULIN,ASP ART,HUMAN (EQV-NOVOLO G) 100 UNIT/ML,FLE XPEN,3ML INJECT 27 UNITS SUBCUTAN EOUSLY THREE TIMES A DAY BEFORE MEALS INJECT 15 MINUTES BEFORE MEALS IF MEAL SKIPPED SKIP THE DOSE SUBCUT ANEOUS ACTIVE 06/11/2025 [id number] 4 ИРИНА ARAGON 2023 10 [place] INSULIN,ASP ART,HUMAN (EQV-NOVOLO G) 100 UNIT/ML,FLE XPEN,3ML INJECT 25 UNITS SUBCUTAN EOUSLY THREE TIMES A DAY INJECT 15 MINUTES BEFORE MEALS IF MEAL SKIPPED SKIP THE DOSE SUBCUT ANEOUS DISCONT INUED (EDIT) 02/26/2025 [id number] Eli BECK 2023 10 [place] INSULIN,ASP ART,HUMAN (EQV-NOVOLO G) 100 UNIT/ML,FLE XPEN,3ML INJECT 25 UNITS SUBCUTAN EOUSLY BEFORE BREAKFAS T AND INJECT 25 UNITS BEFORE LUNCH AND INJECT 25 UNITS BEFORE SUPPER (SKIP DOSE IF MEAL IS SKIPPED) SUBCUT ANEOUS 01/11/2024 [id number] Eli BECK 2022 20 [place] INSULIN,GLA RGINE-YFGN 100UNIT/ML INJ PEN,3ML INJECT 46 UNITS SUBCUTAN EOUSLY TWICE DAILY SUBCUT ANEOUS ACTIVE 02/26/2025 [id number] Eli BECK 2023 10 [place] INSULIN,GLA RGINE-YFGN 100UNIT/ML INJ PEN,3ML INJECT 40 UNITS SUBCUTAN EOUSLY TWICE DAILY FOR DIABETES SUBCUT ANEOUS 02/14/2024 [id number] 4 Eli BECK 2022 20 [place] LIDOCAINE 5% PATCH APPLY 1 PATCH TOPICALL Y ONCE DAILY NEEDED (LEAVE PATCH ON FOR 12 HOURS, THEN REMOVE PATCH) TOPICA L ACTIVE 11/28/2024 [id number] 4 SARA MARES RMEN F 2023 30 [place] LISINOPRIL 5MG TAB TAKE ONE TABLET BY MOUTH ONCE DAILY TO CONTROL BLOOD PRESSURE ORAL ACTIVE 06/04/2025 [id number] 4 SARA MARES RMEN F 2023 90 [place] LISINOPRIL 5MG TAB TAKE ONE TABLET BY MOUTH ONCE DAILY TO CONTROL BLOOD PRESSURE ORAL DISCONT INUED 05/21/2024 [id number] 4 SARA MARES RMEN F 2022 90 [place] METFORMIN HCL 750MG 24HR TAB,SA TAKE ONE TABLET BY MOUTH ONCE DAILY ORAL ACTIVE 02/26/2025 [id number] 4 Eli BECK A 2023 90 [place] METFORMIN HCL 750MG 24HR TAB,SA TAKE ONE TABLET BY MOUTH ONCE DAILY ORAL 02/14/2024 [id number] Eli BECK A 2022 90 [place] SEMAGLUTIDE 0.25MG/0.37 5ML INJ,SOLN,PE N,3ML INJECT 0.5MG SUBCUTAN EOUSLY ONCE A WEEK FOR TYPE 2 DIABETES MELLITUS SUBCUT ANEOUS DISCONT INUED BY PROVIDE R 08/06/2025 [id number] 4 Eli BECK 2023 1 [place] SEMAGLUTIDE 0.25MG/0.37 5ML INJ,SOLN,PE N,3ML INJECT 0.5MG SUBCUTAN EOUSLY ONCE A WEEK FOR TYPE 2 DIABETES MELLITUS SUBCUT ANEOUS DISCONT INUED 04/15/2025 [id number] Eli BECK 2023 1 [place] SEMAGLUTIDE 0.25MG/0.37 5ML INJ,SOLN,PE N,3ML INJECT 0.5MG SUBCUTAN EOUSLY ONCE A WEEK FOR TYPE 2 DIABETES MELLITUS SUBCUT ANEOUS DISCONT INUED BY PROVIDE R 11/04/2024 [id number] Eli BECK 2023 1 [place] SEMAGLUTIDE 0.25MG/0.37 5ML INJ,SOLN,PE N,3ML INJECT 0.25MG SUBCUTAN EOUSLY ONCE A WEEK FOR 2 WEEKS, THEN INJECT 0.5MG ONCE A WEEK SUBCUT ANEOUS DISCONT INUED BY PROVIDE R 11/16/2023 [id number] 4 Eli BECK 2023 1 [place] SEMAGLUTIDE 1MG/0.75ML INJ,SOLN,PE N,3ML INJECT 1MG SUBCUTAN EOUSLY ONCE A WEEK FOR TYPE 2 DIABETES MELLITUS SUBCUT ANEOUS DISCONT INUED BY PROVIDE R 11/27/2024 [id number] Eli BECK 2023 1 [place] SEMAGLUTIDE 1MG/0.75ML INJ,SOLN,PE N,3ML INJECT 1MG SUBCUTAN EOUSLY ONCE A WEEK SUBCUT ANEOUS DISCONT INUED 03/28/2024 [id number] Eli BECK 2022 2 [place] TIRZEPATIDE 2.5MG/0.5ML INJ,SOLN PACK,4 INJECT 2.5MG/0. 5ML SUBCUTAN EOUSLY WEEKLY SUBCUT ANEOUS ACTIVE 10/06/2025 [id number] 4 Eli BECK 2023 1 [place] Immunizations Combined list of available immunizations from the Department of Defense and Veterans Affairs facilities. Immunization Series Date Given Administered By Site Reaction Lot Number CVX Code Drug Pocket Closer Status Comments Source INFLUENZA, SPLIT VIRUS, TRIVALENT, PF 2023 BIANCA COELLO LEFT DELTO ID [id number] 140 complet ed [place] INFLUENZA, INJECTABLE, QUADRIVALENT, PRESERVATIVE FREE 2021 BAUDILIO CONROY RIGHT DELTO ID [id number] 150 complet ed [place] ZOSTER RECOMBINANT 2 2021 BAUDILIO CONROY LEFT DELTO ID [id number] 187 complet ed [place] COVID-19 (MODERNA), MRNA, LNP-S, PF, 100 MCG/0.5ML DOSE OR 50 MCG/0.25ML DOSE 1 2021 207 complet ed MOD; [id number]; 2 [place] ZOSTER RECOMBINANT 1 2021 187 complet ed [place] INFLUENZA, INJECTABLE, QUADRIVALENT, PRESERVATIVE FREE 2020 150 complet ed Partner:Meka AVELAR.Admin istered by:[facility]. ([id number]).[facility] [place]:[phone] 2.Address :[address] [place] [address] .[phone] INFLUENZA, INJECTABLE, QUADRIVALENT, PRESERVATIVE [...] Pt. got his vaccine at his employer. [facility] DTAP, UNSPECIFIED FORMULATION 2010 107 complet ed Site: Right Deltoid [place] FLU,3 YRS (HISTORICAL) 2009 88 complet ed had flu approx date [facility] Results Combined list of recent chemistry, hematology [...] Sep 06, 2024 01:20 PM Reporting Lab: [facility] Experience Headphones[address] [address] Performing Lab: [facility] Experience Headphones[address] [address] [place] PSA PROSTATE SPECIFIC AG [MASS/VOLU ME] IN SERUM OR PLASMA 0.33 ng/mL 0.00 - 4.00 09/07 Specimen Type: SERUM No comment entered. Ordering Provider: ROLDAN RHODES Report Released Date/Time: Sep 06, 2024 01:20 PM Reporting Lab: [facility] Experience HeadphonesUSE[address] [address] Performing Lab: [facility] Experience Headphones[address] [address] [place] HEMOGLOB IN A1C PANEL HEMOGLOBIN A1C/HEMOGL [...] Sep 06, 2024 01:20 PM Reporting Lab: [address] [address] Performing Lab: [address] [address] [place] LIPID PANEL FASTING CHOLESTERO L [MASS/VOLU ME] IN SERUM OR PLASMA 131 mg/dL 09/07 Specimen Type: SERUM Comment: Hemolysis present analysis cannot be performed. Hemolysis present may falsly elevate Potassium Total and Direct Bili, Iron, AST, %Fe. Ordering Provider: ROLDAN RHODES Report Released Date/Time: Sep 06, 2024 01:20 PM Reporting Lab: [address] [address] Performing Lab: [address] [address] [place] LIPID PANEL FASTING TRIGLYCERI DE [MASS/VOLU ME] IN SERUM OR PLASMA 219 mg/dL 0 - 150 09/07 H Specimen Type: SERUM Comment: Hemolysis present analysis cannot be performed. Hemolysis present may falsly elevate Potassium Total and Direct Bili, Iron, AST, %Fe. Ordering Provider: ROLDAN RHODES Report Released Date/Time: Sep 06, 2024 01:20 PM Reporting Lab: [address] [address] Performing Lab: [address] [address] [place] LIPID PANEL FASTING CHOLESTERO L IN LDL [MASS/VOLU ME] IN SERUM OR PLASMA BY CALCULATIO N 55 mg/dL 0 - 129 09/07 Specimen Type: SERUM Comment: Hemolysis present analysis cannot be performed. Hemolysis present may falsly elevate Potassium Total and Direct Bili, Iron, AST, %Fe. Ordering Provider: ROLDAN RHODES Report Released Date/Time: Sep 06, 2024 01:20 PM Reporting Lab: [address] [address] Performing Lab: [address] [address] [place] LIPID PANEL FASTING CHOLESTERO L.TOTAL/CH OLESTEROL IN HDL [MASS RATIO] IN SERUM OR PLASMA 4.1 09/07 Specimen Type: SERUM Comment: Hemolysis present analysis cannot be performed. Hemolysis present may falsly elevate Potassium Total and Direct Bili, Iron, AST, %Fe. Ordering Provider: ROLDAN RHODES Report Released Date/Time: Sep 06, 2024 01:20 PM Reporting Lab: [address] [address] Performing Lab: [address] [address] [place] LIPID PANEL FASTING CHOLESTERO L IN HDL [MASS/VOLU ME] IN SERUM OR PLASMA 32 mg/dL 40 - 60 09/07 L Specimen Type: SERUM Comment: Hemolysis present analysis cannot be performed. Hemolysis present may falsly elevate Potassium Total and Direct Bili, Iron, AST, %Fe. Ordering Provider: ROLDAN RHODES Report Released Date/Time: Sep 06, 2024 01:20 PM Reporting Lab: [address] [address] Performing Lab: [address] [address] [place] LIVER FUNCTION PROTEIN [MASS/VOLU ME] IN SERUM OR PLASMA 7.5 g/dL 6.0 - 8.3 09/07 Specimen Type: SERUM Comment: Hemolysis present analysis cannot be performed. Hemolysis present may falsly elevate Potassium Total and Direct Bili, Iron, AST, %Fe. Ordering Provider: ROLDAN RHODES Report Released Date/Time: Sep 06, 2024 01:20 PM Reporting Lab: [address] [address] Performing Lab: [facility] [address] [facility] [address] [facility] ALB[facility]IN [MASS/VOLU ME] IN SERUM OR PLASMA 3.9 g/dL 3.5 - 5.0 09/07 Specimen Type: SERUM Comment: Hemolysis present analysis cannot be performed. Hemolysis present may falsly elevate Potassium Total and Direct Bili, Iron, AST, %Fe. Ordering Provider: ROLDAN RHODES Report Released Date/Time: Sep 06, 2024 01:20 PM Reporting Lab: [facility] [address] [facility] [address] Performing Lab: [facility] [address] [address] [facility] LIVER FUNCTION ALKALINE PHOSPHATAS E [ENZYMATIC ACTIVITY/V OLUME] IN SERUM OR PLASMA 80 U/L 40 - 150 09/07 Specimen Type: SERUM Comment: Hemolysis present analysis cannot be performed. Hemolysis present may falsly elevate Potassium Total and Direct Bili, Iron, AST, %Fe. Ordering Provider: ROLDAN RHODES Report Released Date/Time: Sep 06, 2024 01:20 PM Reporting Lab: [facility] [address] [facility] [address] Performing Lab: [facility] [address] [address] [facility] LIVER FUNCTION ASPARTATE AMINOTRANS FERASE [ENZYMATIC ACTIVITY/V OLUME] IN SERUM OR PLASMA 34 U/L 5 - 34 09/07 Specimen Type: SERUM Comment: Hemolysis present analysis cannot be performed. Hemolysis present may falsly elevate Potassium Total and Direct Bili, Iron, AST, %Fe. Ordering Provider: ROLDAN RHODES Report Released Date/Time: Sep 06, 2024 01:20 PM Reporting Lab: [facility] [address] [facility] [address] Performing Lab: [facility] [address] [address] [facility] ALANINE AMINOTRANS FERASE [ENZYMATIC ACTIVITY/V OLUME] IN SERUM OR PLASMA 56 U/L 09/07 H Specimen Type: SERUM Comment: Hemolysis present analysis cannot be performed. Hemolysis present may falsly elevate Potassium Total and Direct Bili, Iron, AST, %Fe. Ordering Provider: ROLDAN RHODES Report Released Date/Time: Sep 06, 2024 01:20 PM Reporting Lab: [address] [address] Performing Lab: [address] [address] [place] LIVER FUNCTION BILIRUBIN. TOTAL [MASS/VOLU ME] IN SERUM OR PLASMA commentm g/dL 0.2 - 1.2 09/07 Specimen Type: SERUM Comment: Hemolysis present analysis cannot be performed. Hemolysis present may falsly elevate Potassium Total and Direct Bili, Iron, AST, %Fe. Ordering Provider: ROLDAN RHODES Report Released Date/Time: Sep 06, 2024 01:20 PM Reporting Lab: [address] [address] Performing Lab: [address] [address] [place] LIVER FUNCTION BILIRUBIN. DIRECT [MASS/VOLU ME] IN SERUM OR PLASMA commentm g/dL 0 - 0.5 09/07 Specimen Type: SERUM Comment: Hemolysis present analysis cannot be performed. Hemolysis present may falsly elevate Potassium Total and Direct Bili, Iron, AST, %Fe. Ordering Provider: ROLDAN RHODES Report Released Date/Time: Sep 06, 2024 01:20 PM Reporting Lab: [address] [address] Performing Lab: [address] [address] [place] BASIC METABOLI C PANEL (fasting ) UREA NITROGEN [MASS/VOLU ME] IN SERUM OR PLASMA 15 mg/dL 7 - 25 09/07 Specimen Type: SERUM Comment: Hemolysis present analysis cannot be performed. Hemolysis present may falsly elevate Potassium Total and Direct Bili, Iron, AST, %Fe. Ordering Provider: ROLDAN RHODES Report Released Date/Time: Sep 06, 2024 01:20 PM Reporting Lab: [address] [address] Performing Lab: [address] [address] [place] BASIC METABOLI C PANEL (fasting ) GLUCOSE [MASS/VOLU ME] IN SERUM OR PLASMA 176 mg/dL 65 - 100 09/07 H Specimen Type: SERUM Comment: Hemolysis present analysis cannot be performed. Hemolysis present may falsly elevate Potassium Total and Direct Bili, Iron, AST, %Fe. Ordering Provider: ROLDAN RHODES Report Released Date/Time: Sep 06, 2024 01:20 PM Reporting Lab: [address] [address] Performing Lab: [address] [address] [place] BASIC METABOLI C PANEL (fasting ) SODIUM [MOLES/VOL UME] IN SERUM OR PLASMA 139 mmol/L 135 - 145 09/07 Specimen Type: SERUM Comment: Hemolysis present analysis cannot be performed. Hemolysis present may falsly elevate Potassium Total and Direct Bili, Iron, AST, %Fe. Ordering Provider: ROLDAN RHODES Report Released Date/Time: Sep 06, 2024 01:20 PM Reporting Lab: [address] [address] Performing Lab: [address] [address] [place] BASIC METABOLI C PANEL (fasting ) POTASSIUM [MOLES/VOL UME] IN SERUM OR PLASMA 4.4 mmol/L 3.5 - 5.0 09/07 Specimen Type: SERUM Comment: Hemolysis present analysis cannot be performed. Hemolysis present may falsly elevate Potassium Total and Direct Bili, Iron, AST, %Fe. Ordering Provider: ROLDAN RHODES Report Released Date/Time: Sep 06, 2024 01:20 PM Reporting Lab: [address] [address] Performing Lab: [facility] [address] [facility] [address] [place] BASIC METABOLI C PANEL (fasting ) CHLORIDE [MOLES/VOL UME] IN SERUM OR PLASMA 104 mmol/L 100 - 110 09/07 Specimen Type: SERUM Comment: Hemolysis present analysis cannot be performed. Hemolysis present may falsly elevate Potassium Total and Direct Bili, Iron, AST, %Fe. Ordering Provider: ROLDAN RHODES Report Released Date/Time: Sep 06, 2024 01:20 PM Reporting Lab: [address] [address] Performing Lab: [address] [address] [place] BASIC METABOLI C PANEL (fasting ) CARBON DIOXIDE, TOTAL [MOLES/VOL UME] IN SERUM OR PLASMA 23 meq/L 20 - 30 09/07 Specimen Type: SERUM Comment: Hemolysis present analysis cannot be performed. Hemolysis present may falsly elevate Potassium Total and Direct Bili, Iron, AST, %Fe. Ordering Provider: ROLDAN RHODES Report Released Date/Time: Sep 06, 2024 01:20 PM Reporting Lab: [facility] [address] [facility] [address] Performing Lab: [address] [address] [place] BASIC METABOLI C PANEL (fasting ) CREATININE [MASS/VOLU ME] IN SERUM OR PLASMA 1.15 mg/dL 0.50 - 1.40 09/07 Specimen Type: SERUM Comment: Hemolysis present analysis cannot be performed. Hemolysis present may falsly elevate Potassium Total and Direct Bili, Iron, AST, %Fe. Ordering Provider: ROLDAN RHODES Report Released Date/Time: Sep 06, 2024 01:20 PM Reporting Lab: [address] [address] Performing Lab: [address] [address] [place] BASIC METABOLI C PANEL (fasting [...] Sep 06, 2024 01:20 PM Reporting Lab: [facility] [address] [address] Performing Lab: [facility] [address] [place] MICROALB UMIN CREATINI NE RATIO PANEL MICROALBUM IN/CREATIN INE [MASS RATIO] IN URINE 18.2 mg/g 0 - 29.9 09/07 Specimen Type: URINE No comment entered. Ordering Provider: ROLDAN RHODES Report Released Date/Time: Sep 06, 2024 01:20 PM Reporting Lab: [facility] [place] [address] Performing Lab: [facility] [address] [place] MICROALB UMIN CREATINI NE RATIO PANEL MICROALBUM IN [MASS/VOLU ME] IN URINE 0.9 mg/dL 09/07 Specimen Type: URINE No comment entered. Ordering Provider: ROLDAN RHODES Report Released Date/Time: Sep 06, 2024 01:20 PM Reporting Lab: [facility] [address] Performing Lab: [facility] [address] [place] MICROALB UMIN CREATINI NE RATIO PANEL CREATININE [MASS/VOLU ME] IN URINE 49.56 mg/dL 09/07 Specimen Type: URINE No comment entered. Ordering Provider: ROLDAN RHODES Report Released Date/Time: Sep 06, 2024 01:20 PM Reporting Lab: [facility] [address] Performing Lab: [address] [address] [place] URINALYS IS COLOR OF URINE Colorles s 09/07 Specimen Type: URINE Comment: If Glucose = >500 and Ketones are positive, please alert the Physician. Ordering Provider: ROLDAN RHODES Report Released Date/Time: Sep 06, 2024 01:20 PM Reporting Lab: [address] [address] Performing Lab: [address] [address] [place] URINALYS IS APPEARANCE OF URINE Clear 09/07 Specimen Type: URINE Comment: If Glucose = >500 and Ketones are positive, please alert the Physician. Ordering Provider: ROLDAN RHODES Report Released Date/Time: Sep 06, 2024 01:20 PM Reporting Lab: [address] [address] Performing Lab: [address] [address] [place] URINALYS IS GLUCOSE [MASS/VOLU ME] IN URINE >1000mg/ dL 09/07 Specimen Type: URINE Comment: If Glucose = >500 and Ketones are positive, please alert the Physician. Ordering Provider: ROLDAN RHODES Report Released Date/Time: Sep 06, 2024 01:20 PM Reporting Lab: [address] [address] Performing Lab: [address] [address] [place] URINALYS IS KETONES [MASS/VOLU ME] IN URINE BY TEST STRIP NEGATIVE mg/dL 09/07 Specimen Type: URINE Comment: If Glucose = >500 and Ketones are positive, please alert the Physician. Ordering Provider: ROLDAN RHODES Report Released Date/Time: Sep 06, 2024 01:20 PM Reporting Lab: [facility] [address] [facility] [address] Performing Lab: [address] [address] [place] URINALYS IS ERYTHROCYT ES [PRESENCE] IN URINE SEDIMENT BY LIGHT MICROSCOPY NEGATIVE mg/dL 09/07 Specimen Type: URINE Comment: If Glucose = >500 and Ketones are positive, please alert the Physician. Ordering Provider: ROLDAN RHODES Report Released Date/Time: Sep 06, 2024 01:20 PM Reporting Lab: [address] [address] Performing Lab: [address] [address] [place] URINALYS IS PROTEIN [MASS/VOLU ME] IN URINE BY TEST STRIP NEGATIVE mg/dL 09/07 Specimen Type: URINE Comment: If Glucose = >500 and Ketones are positive, please alert the Physician. Ordering Provider: ROLDAN RHODES Report Released Date/Time: Sep 06, 2024 01:20 PM Reporting Lab: [address] [address] Performing Lab: [address] [address] [place] URINALYS IS NITRITE [PRESENCE] IN URINE NEGATIVE mg/dL 09/07 Specimen Type: URINE Comment: If Glucose = >500 and Ketones are positive, please alert the Physician. Ordering Provider: ROLDAN RHODES Report Released Date/Time: Sep 06, 2024 01:20 PM Reporting Lab: [address] [address] Performing Lab: [address] [address] [place] URINALYS IS BILIRUBIN. TOTAL [PRESENCE] IN URINE NEGATIVE mg/dL 09/07 Specimen Type: URINE Comment: If Glucose = >500 and Ketones are positive, please alert the Physician. Ordering Provider: ROLDAN RHODES Report Released Date/Time: Sep 06, 2024 01:20 PM Reporting Lab: [address] [address] Performing Lab: [address] [address] [place] URINALYS IS SPECIFIC GRAVITY OF URINE BY REFRACTOME TRY 1.023 1.016 - 1.022 09/07 H Specimen Type: URINE Comment: If Glucose = >500 and Ketones are positive, please alert the Physician. Ordering Provider: ROLDAN RHODES Report Released Date/Time: Sep 06, 2024 01:20 PM Reporting Lab: [address] [address] Performing Lab: [address] [address] [place] URINALYS IS PH OF URINE BY TEST STRIP 6.0 5.0 - 9.0 09/07 Specimen Type: URINE Comment: If Glucose = >500 and Ketones are positive, please alert the Physician. Ordering Provider: ROLDAN RHODES Report Released Date/Time: Sep 06, 2024 01:20 PM Reporting Lab: [address] [address] Performing Lab: [address] [address] [place] URINALYS IS UROBILINOG EN [MASS/VOLU ME] IN URINE BY TEST STRIP Normalmg /dL <2.0 - 2.0 09/07 Specimen Type: URINE Comment: If Glucose = >500 and Ketones are positive, please alert the Physician. Ordering Provider: ROLDAN RHODES Report Released Date/Time: Sep 06, 2024 01:20 PM Reporting Lab: [address] [address] Performing Lab: [address] [address] [place] URINALYS IS LEUKOCYTE ESTERASE [PRESENCE] IN URINE BY TEST STRIP NEGATIVE 09/07 Specimen Type: URINE Comment: If Glucose = >500 and Ketones are positive, please alert the Physician. Ordering Provider: ROLDAN RHODES Report Released Date/Time: Sep 06, 2024 01:20 PM Reporting Lab: [facility] [address] [address] Performing Lab: [address] [address] [place] CBC AND DIFF (AUTO) LEUKOCYTES [#/VOLUME] IN BLOOD BY AUTOMATED COUNT 5.45 10*3/uL 4.50 - 11.00 09/07 Specimen Type: BLOOD No comment entered. Ordering Provider: ROLDAN RHODES Report Released Date/Time: Sep 06, 2024 01:20 PM Reporting Lab: [address] [address] Performing Lab: [address] [address] [place] CBC AND DIFF (AUTO) ERYTHROCYT ES [#/VOLUME] IN BLOOD BY AUTOMATED COUNT 5.45 10*6/uL 4.23 - 5.66 09/07 Specimen Type: BLOOD No comment entered. Ordering Provider: ROLDAN RHODES Report Released Date/Time: Sep 06, 2024 01:20 PM Reporting Lab: [address] [address] Performing Lab: [address] [address] [place] CBC AND DIFF (AUTO) HEMOGLOBIN [MASS/VOLU ME] IN BLOOD 16.4 g/dL 12.8 - 17 09/07 Specimen Type: BLOOD No comment entered. Ordering Provider: ROLDAN RHODES Report Released Date/Time: Sep 06, 2024 01:20 PM Reporting Lab: [address] [address] Performing Lab: [address] [address] [place] CBC AND DIFF (AUTO) HEMATOCRIT [VOLUME FRACTION] OF BLOOD BY AUTOMATED COUNT 48.6 39.2 - 50.4 09/07 Specimen Type: BLOOD No comment entered. Ordering Provider: ROLDAN RHODES Report Released Date/Time: Sep 06, 2024 01:20 PM Reporting Lab: [facility] [address] [address] Performing Lab: [address] [address] [place] CBC AND DIFF (AUTO) MCV [ENTITIC VOLUME] BY AUTOMATED COUNT 89.2 fL 82 - 99 09/07 Specimen Type: BLOOD No comment entered. Ordering Provider: ROLDAN RHODES Report Released Date/Time: Sep 06, 2024 01:20 PM Reporting Lab: [address] [address] Performing Lab: [address] [address] [place] CBC AND DIFF (AUTO) MCHC [MASS/VOLU ME] BY AUTOMATED COUNT 33.7 g/dL 30.8 - 35.1 09/07 Specimen Type: BLOOD No comment entered. Ordering Provider: ROLDAN RHODES Report Released Date/Time: Sep 06, 2024 01:20 PM Reporting Lab: [address] [address] Performing Lab: [address] [address] [place] CBC AND DIFF (AUTO) PLATELETS [#/VOLUME] IN BLOOD BY AUTOMATED COUNT 128 10*3/uL 140 - 360 09/07 L Specimen Type: BLOOD No comment entered. Ordering Provider: ROLDAN RHODES Report Released Date/Time: Sep 06, 2024 01:20 PM Reporting Lab: [facility] [address] [address] Performing Lab: [facility] [address] [address] [place] CBC AND DIFF (AUTO) ERYTHROCYT E DISTRIBUTI ON WIDTH [RATIO] BY AUTOMATED COUNT 12.4 12.0 - 16.0 09/07 Specimen Type: BLOOD No comment entered. Ordering Provider: ROLDAN RHODES Report Released Date/Time: Sep 06, 2024 01:20 PM Reporting Lab: [facility] [address] [address] Performing Lab: [facility] [address] [address] [place] CBC AND DIFF (AUTO) MONOCYTES [#/VOLUME] IN BLOOD BY AUTOMATED COUNT 0.57 10*3/uL 0.30 - 1.10 09/07 Specimen Type: BLOOD No comment entered. Ordering Provider: ROLDAN RHODES Report Released Date/Time: Sep 06, 2024 01:20 PM Reporting Lab: [facility] [address] [address] Performing Lab: [facility] [address] [address] [place] CBC AND DIFF (AUTO) MCH [ENTITIC MASS] BY AUTOMATED COUNT 30.1 pg 26.2 - 32.6 09/07 Specimen Type: BLOOD No comment entered. Ordering Provider: ROLDAN RHODES Report Released Date/Time: Sep 06, 2024 01:20 PM Reporting Lab: [facility] [address] [address] Performing Lab: [facility] [address] [address] [place] CBC AND DIFF (AUTO) NEUTROPHIL S/100 LEUKOCYTES IN BLOOD BY AUTOMATED COUNT 48.8 43.7 - 75.8 09/07 Specimen Type: BLOOD No comment entered. Ordering Provider: ROLDAN RHODES Report Released Date/Time: Sep 06, 2024 01:20 PM Reporting Lab: [facility] [address] [address] Performing Lab: [facility] [address] [address] [place] CBC AND DIFF (AUTO) LYMPHOCYTE S/100 LEUKOCYTES IN BLOOD BY AUTOMATED COUNT 38.3 14.0 - 42.3 09/07 Specimen Type: BLOOD No comment entered. Ordering Provider: ROLDAN RHODES Report Released Date/Time: Sep 06, 2024 01:20 PM Reporting Lab: [facility] [address] [address] Performing Lab: [facility] [address] [address] [place] CBC AND DIFF (AUTO) MONOCYTES/ 100 LEUKOCYTES IN BLOOD BY AUTOMATED COUNT 10.5 5.1 - 13.7 09/07 Specimen Type: BLOOD No comment entered. Ordering Provider: ROLDAN RHODES Report Released Date/Time: Sep 06, 2024 01:20 PM Reporting Lab: [facility] [address] [address] Performing Lab[facility] [address] [address] [place] CBC AND DIFF (AUTO) EOSINOPHIL S/100 LEUKOCYTES IN BLOOD BY AUTOMATED COUNT 1.3 0.4 - 6.8 09/07 Specimen Type: BLOOD No comment entered. Ordering Provider: ROLDAN RHODES Report Released Date/Time: Sep 06, 2024 01:20 PM Reporting Lab: [facility] [address] [address] Performing Lab: [facility] [address] [address] [place] CBC AND DIFF (AUTO) BASOPHILS/ 100 LEUKOCYTES IN BLOOD BY AUTOMATED COUNT 0.4 0.1 - 2.0 09/07 Specimen Type: BLOOD No comment entered. Ordering Provider: ROLDAN RHODES Report Released Date/Time: Sep 06, 2024 01:20 PM Reporting Lab: [facility] [address] [address] Performing Lab: [facility] [address] [address] [place] CBC AND DIFF (AUTO) NEUTROPHIL S [#/VOLUME] IN BLOOD BY AUTOMATED COUNT 2.66 10*3/uL 2.20 - 7.60 09/07 Specimen Type: BLOOD No comment entered. Ordering Provider: ROLDAN RHODES Report Released Date/Time: Sep 06, 2024 01:20 PM Reporting Lab: [facility] [address] [address] Performing Lab: [facility] [address] [address] [place] CBC AND DIFF (AUTO) LYMPHOCYTE S [#/VOLUME] IN BLOOD BY AUTOMATED COUNT 2.09 10*3/uL 1.00 - 3.20 09/07 Specimen Type: BLOOD No comment entered. Ordering Provider: ROLDAN RHODES Report Released Date/Time: Sep 06, 2024 01:20 PM Reporting Lab: [facility] [address] [address] Performing Lab: [address] [address] [place] CBC AND DIFF (AUTO) EOSINOPHIL S [#/VOLUME] IN BLOOD BY AUTOMATED COUNT 0.07 10*3/uL 0.03 - 0.44 09/07 Specimen Type: BLOOD No comment entered. Ordering Provider: ROLDAN RHODES Report Released Date/Time: Sep 06, 2024 01:20 PM Reporting Lab: [address] [address] Performing Lab: [address] [address] [place] CBC AND DIFF (AUTO) BASOPHILS [#/VOLUME] IN BLOOD BY AUTOMATED COUNT 0.02 10*3/uL 0.01 - 0.13 09/07 Specimen Type: BLOOD No comment entered. Ordering Provider: ROLDAN RHODES Report Released Date/Time: Sep 06, 2024 01:20 PM Reporting Lab: [facility] [address] [address] Performing Lab: [address] [address] [place] CBC AND DIFF (AUTO) IMMATURE GRANULOCYT ES/100 LEUKOCYTES IN BLOOD BY AUTOMATED COUNT 0.7 0.0 - 0.7 09/07 Specimen Type: BLOOD No comment entered. Ordering Provider: ROLDAN RHODES Report Released Date/Time: Sep 06, 2024 01:20 PM Reporting Lab: [address] [address] Performing Lab: [address] [address] [place] CBC AND DIFF (AUTO) IMMATURE GRANULOCYT ES [#/VOLUME] IN BLOOD 0.04 10*3/uL 0.00 - 0.06 09/07 Specimen Type: BLOOD No comment entered. Ordering Provider: ROLDAN RHODES Report Released Date/Time: Sep 06, 2024 01:20 PM Reporting Lab: [address] [address] Performing Lab: [address] [address] [place] CBC AND DIFF (AUTO) NRBC % 0.0 0.0 - 0.0 09/07 Specimen Type: BLOOD No comment entered. Ordering Provider: ROLDAN RHODES Report Released Date/Time: Sep 06, 2024 01:20 PM Reporting Lab: [address] [address] Performing Lab: [address] [address] [place] CBC AND DIFF (AUTO) NRBC, ABS 0.00 10*3/uL 0.00 - 0.00 09/07 Specimen Type: BLOOD No comment entered. Ordering Provider: ROLDAN RHODES Report Released Date/Time: Sep 06, 2024 01:20 PM Reporting Lab: [address] [address] Performing Lab: [address] [address] [place] LIPID PANEL FASTING CHOLESTERO L [MASS/VOLU ME] IN SERUM OR PLASMA 126 mg/dL 03/08 Specimen Type: SERUM No comment entered. Ordering Provider: SAE MARES Report Released Date/Time: Nov 28, 2023 09:56 AM Reporting Lab: [facility] [address] [address] Performing Lab: [facility] [address] [address] [place] LIPID PANEL FASTING TRIGLYCERI DE [MASS/VOLU ME] IN SERUM OR PLASMA 197 mg/dL 0 - 150 03/08 H Specimen Type: SERUM No comment entered. Ordering Provider: SAE MARES Report Released Date/Time: Nov 28, 2023 09:56 AM Reporting Lab: [facility] [address] [address] Performing Lab: [facility] [address] [address] [place] LIPID PANEL FASTING CHOLESTERO L IN LDL [MASS/VOLU ME] IN SERUM OR PLASMA BY CALCULATIO N 57 mg/dL 0 - 129 03/08 Specimen Type: SERUM No comment entered. Ordering Provider: SAE MARES Report Released Date/Time: Nov 28, 2023 09:56 AM Reporting Lab: [facility] [address] [address] Performing Lab: [facility] [address] [address] [place] LIPID PANEL FASTING CHOLESTERO L.TOTAL/CH OLESTEROL IN HDL [MASS RATIO] IN SERUM OR PLASMA 4.2 03/08 Specimen Type: SERUM No comment entered. Ordering Provider: SAE MARES Report Released Date/Time: Nov 28, 2023 09:56 AM Reporting Lab: [facility] [address] Performing Lab: [facility] [address] [place] LIPID PANEL FASTING CHOLESTERO L IN HDL [MASS/VOLU ME] IN SERUM OR PLASMA 30 mg/dL 40 - 60 03/08 L Specimen Type: SERUM No comment entered. Ordering Provider: SAE MARES Report Released Date/Time: Nov 28, 2023 09:56 AM Reporting Lab: [facility] [address] [facility] [address] Performing Lab: [address] [address] [facility] Vital Signs Combined list of inpatient and outpatient Vital Signs from Department of Defense and Veterans Affairs, ranging from 12 months to all on record, depending upon the facility. Vital Sign Value Date Comments Source SYSTOLIC BLOOD PRESSURE 139 09/16/2024 08:36:44 [place] DIASTOLIC BLOOD PRESSURE 86 09/16/2024 08:36:44 [place] PULSE OXIMETRY 95 09/16/2024 08:36:44 [place] WEIGHT 274 09/16/2024 08:36:44 [place] BMI 33kg/m2 09/16/2024 08:36:44 [place] HEIGHT 77 09/16/2024 08:36:44 [place] TEMPERATURE 97.9 09/16/2024 08:36:44 [place] PULSE 91 09/16/2024 08:36:44 [place] RESPIRATION 19 09/16/2024 08:36:44 [place] SYSTOLIC BLOOD PRESSURE 147 08/19/2024 09:25:36 [place] DIASTOLIC BLOOD PRESSURE 92 08/19/2024 09:25:36 [place] PULSE OXIMETRY 97 08/19/2024 09:25:36 [place] PAIN 9 08/19/2024 09:25:36 [place] TEMPERATURE 97.5 08/19/2024 09:25:36 [place] PULSE 75 08/19/2024 09:25:36 [place] RESPIRATION 18 08/19/2024 09:25:36 [place] SYSTOLIC BLOOD PRESSURE 170 07/06/2024 08:48:14 [place] DIASTOLIC BLOOD PRESSURE 98 07/06/2024 08:48:14 [place] PULSE OXIMETRY 07 07/06/2024 08:48:14 [place] PAIN 10 07/06/2024 08:48:14 [place] TEMPERATURE 98.1 07/06/2024 08:48:14 [place] PULSE 65 07/06/2024 08:48:14 [place] RESPIRATION 20 07/06/2024 08:48:14 [place] SYSTOLIC BLOOD PRESSURE 125 04/19/2024 15:04:06 [place] DIASTOLIC BLOOD PRESSURE 79 04/19/2024 15:04:06 [place] PULSE OXIMETRY 94 04/19/2024 15:04:06 [place] WEIGHT 273 04/19/2024 15:04:06 [place] BMI 32kg/m2 04/19/2024 15:04:06 [place] PULSE 90 04/19/2024 15:04:06 [place] SYSTOLIC BLOOD PRESSURE 146 03/08/2024 09:14:37 [place] DIASTOLIC BLOOD PRESSURE 97 03/08/2024 09:14:37 [place] PULSE OXIMETRY 96 03/08/2024 09:14:37 [place] WEIGHT 272 03/08/2024 09:14:37 [place] BMI 32kg/m2 03/08/2024 09:14:37 [place] PULSE 92 03/08/2024 09:14:37 [place] Encounters Combined list of: 1) Encounters from Department of Veterans Affairs facilities going back up to thelast 18 months. 2) Encounters from the Department of Defense facilities going back up to 280 months. Location Location Details Encounter Type Encounter Number Reason For Visit Attending Provider ADM Date DC Date Status Disposition Source [place] [facility] [place] [facility] Outpatient Encounter [id number] 04/11 [place] [facility] [place] [facility] Outpatient Encounter [id number] 04/15 [place] [facility] [place] [facility] EYE EXAM&TX ESTAB PT 1/>VST [id number] Diagnos is: ICD-10- CM H34.811 0 Central retinal vein occls, right eye, with macular edema<b r/> KELLEY WELSH Y Romana 04/15 [place] [facility] [place] [facility] [place] [facility] FIT SPECTACLES MULTIFOCAL [id number] Diagnos is: ICD-10- CM Z46.0 Encount er for fit/adj st of spectac les and contact lenses< br/> YUKI FIGUEROA 04[facility]15 [facility] En[facility] [id number] 04/23 [facility] [place] En[facility] [id number] 04/23 [facility] [place] [place] OFF/OP EST FEBRUARY X REQ PHY/QHP [id number] Diagnos is: ICD-10- CM R10.9 Unspeci fied abdomin al pain
OUMOU,ER IC K 04/23 [place] [facility] En[facility] [id number] 04/23 [facility] [place] En[facility] [id number] 04/23 [facility] [place] En[facility] [id number] 04/23 [facility] [place] Encounter [id number] 04/23 [facility] [place] Encounter [id number] 04/30 [facility] [place] En[facility] [id number] 05/06 [facility] [place] En[facility] [id number] 05/07 [facility] QNHP OL DIG ASSMT&MGMT 5-10 [id number] Diagnos is: ICD-10- CM E11.9 Type 2 diabete s mellitu s without complic ations< br/> GDULALUISITO A 05/08 [facility] En[facility] [id number] 05/09 [facility] [place] Encounter [id number] 05/09 [facility] [place] Encounter [id number] 05/21 [facility] [place] [facility] [place] OFF[place] O/P EST MOD 30-39 MIN [id number] Diagnos is: ICD-10- CM M54.50 Low back pain, unspeci fied
VISHNUCAR MEN F 05/21 [place] [facility] [place] [facility] Out[facility] Encounter [id number] DEBORAHA,CAR MEN F 05/21 [facility] [place] Encounter [id number] 05/28 [facility] [place] Encounter [id number] 05/29 [facility] [place] [facility] [place] Out[place] [facility] [id number] 05/30 [place] [facility] Encounter [id number] 06/02 [facility] [id number] 06/02 [facility] En[facility] [id number] 06/05 [facility] [place] OFF/OP EST FEBRUARY X REQ PHY/QHP [id number] Diagnos is: ICD-10- CM R11.0 Nausea< br/> MARYLU COELLO IC K 06/05 [facility] [place] [facility] Encounter [id number] 06/05 [facility] [id number] 06/12 [facility] [id number] 06/12 [facility] [id number] 06/17 [facility] [id number] 06/25 [facility] En[facility] [id number] 06/25 [facility] [place] [id number] Diagnos is: ICD-10- CM Z71.3 Dietary extension course counselor ing and surveil erasmo<b r/> EDMAR LOW P 06/25 [facility] [place] [facility] BY PHARM ADDL 15 MIN [id number] Diagnos is: ICD-10- CM E11.9 Type 2 diabete s mellitu s without complic ations< br/> LEANDER BECK MARJORIE A 06/26 [facility] [place] [facility] Out[facility] Encounter [id number] 07/01 [facility] [id number] 07/04 [facility] [facility] En[facility] [id number] 07/04 [facility] Encounter [id number] 07/05 [facility] [place] Outpatient Encounter [id number] 49 07/18 [facility] [place] OFF[place] O/P EST MOD 30-39 MIN [id number] [id number] Diagnos is: ICD-10- CM M54.50 Low back pain, unspeci fied
STELEA,CAR MEN F 07/28 [facility] [place] SELF CARE MNGMENT TRAINING [id number] [id number] Diagnos is: ICD-10- CM M54.51 Vertebr ogenic low back pain
HOLA BURROWS 08/01 [facility] [place] THERAPEUTI C EXERCISES [id number] [id number] 34 Diagnos is: ICD-10- CM M54.51 Vertebr ogenic low back pain
HOLA BURROWS 08/05 [place] [facility] Out[facility] Encounter [id number] 08/08 [facility] [place] THERAPEUTI C EXERCISES [id number] [id number] Diagnos is: ICD-10- CM M54.51 Vertebr ogenic low back pain
SALINA LANGSTON 08/19 [place] [facility] Encounter [id number] 08/22 [facility] [place] Outpatient Encounter [id number] [id number] 08/27 [place] OFF/OP EST FEBRUARY X REQ PHY/QHP [id number] 1BY.[id number] Diagnos is: ICD-10- CM I10 Essenti al (primar y) hyperte nsion<b r/> ROSA MARIA WELCH [place] [facility] Out[facility] Encounter [id number] 09/26 [facility] Out[facility] Encounter [id number] 10/07 [facility] [place] MTMS BY PHARM ADDL 15 MIN [id number] [id number] Diagnos is: ICD-10- CM E11.9 Type 2 diabete s mellitu s without complic ations< br/> LEANDER BECK 10/17 [place] [facility] Outpatient Encounter [id number] 10/21 [facility] [place] PRO PHONE CALL 11-20 MIN [id number] [id number] 14 Diagnos is: ICD-10- CM E11.9 Type 2 diabete s mellitu s without complic ations< br/> LEANDER BECK A 11/03 [place] [facility] PRO PHONE CALL 21-30 MIN [id number] [id number] Diagnos is: ICD-10- CM E11.9 Type 2 diabete s mellitu s without complic ations< br/> LEANDER BECK A 11/10 [place] [facility] Outpatient Encounter [id number] 11/13 [facility] [place] MTMS BY PHARM ADDL 15 MIN [id number] [id number] Diagnos is: ICD-10- CM E11.9 Type 2 diabete s mellitu s without complic ations< br/> STELEA,CAR DAKSHA F 11/27 [facility] [place] OFFICE O/P EST MOD 30 MIN [id number] [id number] Diagnos is: ICD-10- CM E78.5 Hyperli pidemia , unspeci fied
STELEA,CAR DAKSHA F 11/28 [facility] [place] OFF/OP EST FEBRUARY X REQ PHY/QHP [id number] [id number].[id number] Diagnos is: ICD-10- CM M54.50 Low back pain, unspeci fied
OUMOU,MARYLU IC K 12/11 [place] [facility] Outpatient Encounter [id number] 12/11 [facility] [place] OFFICE O/P EST MOD 30 MIN [id number] [id number] Diagnos is: ICD-10- CM M54.50 Low back pain, unspeci fied
RENATO RHODES C 12/11 [place] [facility] Outpatient Encounter [id number] 12/14 [facility] Encounter [id number] [id number] 12/21 [facility] Encounter [id number] [id number] 12/24 [facility] Encounter [id number] [id number] 12/24 [facility] Out[facility] Encounter [id number] 12/24 [facility] [place] OFFICE O/P EST MOD 30 MIN [id number] [id number] Diagnos is: ICD-10- CM M54.50 Low back pain, unspeci fied
STELEA,CAR MEN F 12/28 [place] [facility] Out[facility] Encounter [id number] 12/28 [facility] Out[facility] Encounter [id number] 02/08 [facility] OFF/OP CONSLTJ NEW/EST HI 55 [id number] [id number] Diagnos is: ICD-10- CM M54.50 Low back pain, unspeci fied
KUPFERSCHM ID,SABA B 02/09 [facility] Out[facility] Encounter [id number] 03/04 [facility] [place] OFFICE O/P EST MOD 30 MIN [id number] [id number] Diagnos is: ICD-10- CM R10.9 Unspeci fied abdomin al pain
STENANCY,CAR MEN F 03/08 [place] [facility] Out[facility] Encounter [id number] 03/10 [facility] Out[facility] Encounter [id number] 03/15 [facility] Out[facility] Encounter [id number] [id number] 03/15 [facility] Out[facility] Encounter [id number] 03/19 [facility] OFFICE O/P EST HI 40 MIN [id number] Diagnos is: ICD-10- CM M19.91 Primary osteoar thritis , unspeci fied site
KUPFERSCHM ID,SABA B 03/22 [facility] Encounter [id number] 04/05 [facility] Out[facility] Encounter [id number] 04/06 [facility] OFFICE O/P EST HI 40 MIN [id number] Diagnos is: ICD-10- CM M19.91 Primary osteoar thritis , unspeci fied site
KUPFERSCHM ID,SABA B 04/06 [facility] Out[facility] Encounter [id number] 04/12 [facility] MTMS BY PHARM ADDL 15 MIN [id number] [id number] Diagnos is: ICD-10- CM E11.9 Type 2 diabete s mellitu s without complic ations< br/> LEANDER BECK A 04/14 [place] [facility] Outpatient Encounter [id number]/14 [facility] Outpatient Encounter [id number] 04/16 [facility] OFFICE O/P EST MOD 30 MIN [id number] [id number] Diagnos is: ICD-10- CM M25.561 Pain in right knee
MYKELLEA,CAR MEN F 04/19 [place] [facility] Outpatient Encounter [id number] 04/23 [facility] COMPRE OPH EXAM EST PT 1/> [id number] Diagnos is: ICD-10- CM H34.811 0 Central retinal vein occls, right eye, with macular edema<b r/> BLAISE,KELLEY Y Romana 04/28 [facility] FIT SPECTACLES MULTIFOCAL [id number] Diagnos is: ICD-10- CM Z46.0 Encount er for fit/adj st of spectac les and contact lenses< br/> BLAISE,KELLEY Y J 04/28 [facility] Outpatient Encounter [id number] 1. 04/29 [facility] Out[facility] Encounter [id number] 05/13 [facility] Out[facility] Encounter [id number] 05/20 [facility] OFFICE O/P EST MOD 30 MIN [id number] Diagnos is: ICD-10- CM M25.561 Pain in right knee
KUPFERSCHSABA LOPEZ B 05/21 [facility] Out[facility] Encounter [id number]/21 [facility] Out[facility] Encounter [id number] 05/25 [facility] Out[facility] Encounter [id number]/31 [facility] [place] MTMS BY PHARM ADDL 15 MIN [id number] Diagnos is: ICD-10- CM E11.9 Type 2 diabete s mellitu s without complic ations< br/> RUDI ARAGON 06/10 [place] [facility] Out[facility] Encounter [id number] 06/10 [facility] [place] PT EVAL MOD COMPLEX 30 MIN [id number] 1BY. 57 Diagnos is: ICD-10- CM M25.569 Pain in unspeci fied knee
HOLA BURROWS 06/23 [place] THERAPEUTI [place] EXERCISES [id number] Diagnos is: ICD-10- CM M25.569 Pain in unspeci fied knee
HOLA BURROWS [place] [facility] Out[facility] Encounter [id number] 07/01 [facility] Out[facility] Encounter [id number]/05 [facility] [place] OFF/OP EST FEBRUARY X REQ PHY/QHP [id number] [id number].[id number] Diagnos is: ICD-10- CM G50.1 Atypica l facial pain
OUMOU,ER IC [place] [facility] Out[facility] Encounter [id number] 1.07/06 [facility] [place] THERAPEUTI C EXERCISES [id number] [id number] Diagnos is: ICD-10- CM M25.569 Pain in unspeci fied knee
HOL[place] BURROWS [place] [facility] Out[facility] Encounter [id number] 1.07/13 [facility] [place] PRO PHONE CALL 21-30 MIN [id number] 1BY. 00 Diagnos is: ICD-10- CM Z71.89 Other specifi ed extension course counselor ing<br/ > KENNETH [place] [facility] Outpatient Encounter [id number] 07/28 [facility] Out[facility] Encounter [id number] 1.08/04 [facility] [place] MTMS BY PHARM ADDL 15 MIN [id number] 1BY. 56 Diagnos is: ICD-10- CM E11.9 Type 2 diabete s mellitu s without complic ations< br/> LEANDER BECK 08/05 [place] [facility] Outpatient Encounter [id number] 1.08/05 [facility] Out[facility] Encounter [id number] 1.08/05 [facility] Out[facility]counter [id number] 1.08/06 [facility] [place] OFF/OP EST FEBRUARY X REQ PHY/QHP [id number] [id number] Diagnos is: ICD-10- CM M54.50 Low back pain, unspeci fied
OUMOU,MARYLU IC K 08/19 [place] [facility] Outpatient Encounter [id number] 1.08/19 [facility] Outpatient Encounter [id number] 1.08/20 [facility] [place] THERAPEUTI C EXERCISES [id number] 1BY. Diagnos is: ICD-10- CM M25.569 Pain in unspeci fied knee
HOLA BURROWS 08/24 [place] [facility] Out[facility] Encounter [id number] 1.08/26 [facility] OFFICE O/P EST HI 40 MIN [id number] 1. Diagnos is: ICD-10- CM M54.50 Low back pain, unspeci fied
SABA ROUSE 08/27 [facility] Out[facility] Encounter [id number] 1.09/06 [facility] Encounter [id number] 1.09/06 [facility] QNHP OL DIG ASSMT&MGMT 5-10 [id number] 1. Diagnos is: ICD-10- CM M25.561 Pain in right knee
MIKE GARCIA SAIMA S 09/08 [facility] OFFICE O/P EST HI 40 MIN [id number] 1BY.[id number] 05 Diagnos is: ICD-10- CM M15.9 Polyost eoarthr itis, unspeci fied
RENATO RHODES 09/16 [place] [facility] Outpatient Encounter [id number] 1. RENATO RHODES 09/16 [facility] Outpatient Encounter [id number] 1.09/23 [facility] Outpatient Encounter [id number] [place] [facility] QNHP OL DIG ASSMT&MGMT 5-10 [id number] Diagnos is: ICD-10- CM E11.9 Type 2 diabete s mellitu s without complic ations< br/> ROME HUNTER 09/23 [facility] OFFICE O/P EST HI 40 MIN [id number] Diagnos is: ICD-10- CM M15.9 Polyost eoarthr itis, unspeci fied
KUPFERSCHM ID,SABA B 09/24 [facility] [place] MTMS BY PHARM CLERK ANALYST 15 MIN [id number] [id number] Diagnos is: ICD-10- CM E11.9 Type 2 diabete s mellitu s without complic ations< br/> LEANDER BECK 10/04 [facility] [place] [facility] Outpatient Encounter [id number] 10/04 [facility] Outpatient Encounter [id number] 10/05 [facility] Social History Combined list of available smoking, tobacco, and other social history from Department of Defense and Veterans Affairs facilities. Social History Type Response Date Comment Source Tobacco smoking status [facility] VA-TOBACCO FORMER USER 03/08/2024 [place] History of tobacco use IA-TOBACCO QUIT 15 YRS OR MORE 03/08/2024 [place] History of tobacco use VA-TOBACCO FORMER USER 03/11/2023 [facility] History of tobacco use IA-TOBACCO QUIT 15 YRS OR MORE 03/27/2022 [place] History of tobacco use VA-TOBACCO FORMER USER 12/27/2020 [facility] [place] [facility] History of tobacco use IA-TOBACCO QUIT 15 YRS OR MORE 12/22/2018 [place] History of tobacco use VA-TOBACCO FORMER USER 03/19/2018 [place] History of tobacco use QUIT TOBACCO USE > 7 YEARS AGO 05/13/2017 quit 24 yrs ago [place] History of tobacco use QUIT TOBACCO USE > 7 YEARS AGO 11/15/2015 States he last smoked 21 years ago [place] History of tobacco use QUIT TOBACCO USE > 7 YEARS AGO 12/07/2009 [place] Plan of Care List of future care activities from Department of [facility] facilities. Additional future care activities may be listed in the Assessment and Plan section. Date/Time Care Activity Care Activity Detail Facili ty 10/15/2024 AMBULATORY - MEDICINE AM[facility]AT[facility] - [facility]ICI [facility] 10/27/2024 AMBULATORY - MEDICINE AMBULATORY - MEDICI [facility] [facility] 11/04/2024 AMBULATORY - MEDICINE AMBULATORY - MEDICI [place] [facility] [facility] 11/18/2024 AMBULATORY - NONE [facility] 11/18/2024 AMBULATORY - MEDICINE AMBULATORY - MEDICI [facility] 01/20/2025 AMBULATORY - MEDICINE AMBULATORY - MEDICI [facility] 09/16/2024 Consult Order HEPATOLOGY SERVI [facility] WHAV Cons Receiving Associate Store's Choice [place] 09/21/2024 Laboratory - Salesforce Administrator ry Order ALCOHOL, ETHYL URINE PANEL URINE (DRUG) [facility] [facility] 09/21/2024 Laboratory - Sales[employer] Administrator ry Order FENTANYL SCREEN PANEL URINE (DRUG) SP [facility] [facility] 09/21/2024 Laboratory - Salesforce Administrator ry Order BENZODIAZEPINES SCREEN PANEL URINE (DRUG) SP [facility] [facility] 09/21/2024 Laboratory - Salesforce Administrator ry Order BUPRENORPHINE SCREEN PANEL URINE (DRUG) SP [facility] [facility] 09/21/2024 Laboratory - Salesforce Administrator ry Order AMPHETAMINES SCREEN PANEL URINE (DRUG) SP [facility] [facility] 09/21/2024 Laboratory - Salesforce Administrator ry Order CANNABINOIDS SCREEN PANEL URINE (DRUG) [facility] [place] [facility] 09/21/2024 Laboratory - Salesforce Administrator ry Order COCAINE SCREEN PANEL URINE (DRUG) [facility] [place] [facility] 09/21/2024 Laboratory - Salesforce Administrator ry Order METHADONE SCREEN URINE SP [facility] [place] [facility] 09/21/2024 Laboratory - Salesforce Administrator ry Order OPIATES SCREEN PANEL URINE (DRUG) [facility] [place] [facility] 09/21/2024 Laboratory - Salesforce Administrator ry Order OXYCODONE SCREEN PANEL URINE (DRUG) [place] [facility] [place] [facility] Advance Directives List of completed, amended, or rescinded Advance Directives on record at [facility] facilities. An actual copy of the Directive is not included. Date Advance Directive Provider Source 05/23/2011 ADVANCE DIRECTIVE JUD BROOKS
--- OUTSIDE RECORDS SUMMARY | 2024-10-11 11:12 | XMS_ITS | Encounter Summary ---
Author Name [facility] [place] Organization [facility] [place] Address [address] [place] [address] Care Team Providers Care Nitroglycerin Distributor Name Role Phone CHANI RHODES Primary Care [...] [facility] February 03, 2022 [id number] [phone] EMERITA BAUTISTA PATIENT [facility] MEDICAID MEDICAID MEDIC AID Oct 06, 2013 MEDICAI D [id number] EMERITA BAUTISTA PATIENT MEDICARE (WNR) MEDICARE (M) PART A Mar 06, 2015 PART A [id number] EMERITA BAUTISTA PATIENT MEDICARE (WNR) MEDICARE (M) PART B Mar 06, 2015 PART B [id number] [phone] EMERITA BAUTISTA PATIENT MEDICARE (WNR) MEDICARE (M) PART B Mar 06, 2015 PART B [id number] [phone] EMERITA BAUTISTA PATIENT MEDICARE (WNR) MEDICARE (M) PART A Mar 06, 2015 PART A [id number] EMERITA BAUTISTA PATIENT MEDICARE (WNR) MEDICARE (M) PART B Mar 06, 2015 PART B [id number] EMERITA BAUTISTA PATIENT MEDICARE (WNR) MEDICARE (M) PART B Mar 06, 2015 PART B [id number] EMERITA BAUTISTA PATIENT MEDICARE (WNR) MEDICARE (M) PART A Mar 06, 2015 PART A [id number] EMERITA BAUTISTA PATIENT Selected Encounter This section includes the information on record at DC for the Encounter. Date/Time Encounter Type Encounter Description Reason Pro vider Source Oct 04, 2024 03:42 PM Outpatient Encounter PRIMARY CARE/MEDICINE IHE Encounter Template Text not used by DC Plan of Treatment: Future Appointments (+ 6 months) and Future Tests (+/- 45 days) The Plan of Treatment section includes future care activities for the [facility] This section includes future appointments and future orders which are active, pending or scheduled. Future Appointments This section includes appointments that were scheduled to occur 6 months from the date of the Encounter, up to a maximum of 20 appointments. The data comes from all [place] treatment facilities. Appointment Date/Time Appointment Type Appointme nt Facility Name Oct 15, 2024 08:00 AM AMBULATORY - MEDICINE [facility] Oct 27, 2024 09:30 AM AMBULATORY - MEDICINE [facility] Nov 04, 2024 03:00 PM AMBULATORY - MEDICINE [place] [facility] [place] [facility] Nov 18, 2024 09:30 AM AMBULATORY - NONE [facility] Nov 18, 2024 09:30 AM AM[facility] - [place]IC[facility] [place] [facility] Jan 20, 2025 10:00 AM [facility] Active, Pending, and Scheduled Orders This [...] PM Consult Order COMMUNITY CARE-[facility] Cons [employer] [facility] Sep 16, 2024 08:39 PM Consult Order HEPATOLOGY SERVICES IF WHAV Cons [employer] [facility] Sep 21, 2024 12:00 AM Laboratory - Chemistry Order ALCOHOL, ETHYL URINE [facility] [place] [facility] Sep 21, 2024 12:00 AM Laboratory - Chemistry Order AMPHETAMINES SCREEN PANEL URINE (DRUG[facility] [place] [facility] Sep 21, 2024 12:00 AM Laboratory - Chemistry Order FENTANYL SCREEN PANEL URINE (DRUG[facility] Sep 21, 2024 12:00 AM Laboratory - Chemistry Order BENZODIAZEPINES SCREEN PANEL URINE (DRUG) [facility] [place] [facility] Sep 21, 2024 12:00 AM Laboratory - Chemistry Order BUPRENORPHINE SCREEN PANEL URINE (DRUG[facility] [place] [facility] Sep 21, 2024 12:00 AM Laboratory - Chemistry Order CANNABINOIDS SCREEN PANEL URINE (DRUG[facility] [place] [facility] Sep 21, 2024 12:00 AM Laboratory - Chemistry Order COCAINE SCREEN PANEL URINE (DRUG[facility] [place] [facility] Sep 21, 2024 12:00 AM Laboratory - Chemistry Order OPIATES SCREEN PANEL URINE (DRUG) [facility] [place] [facility] Sep 21, 2024 12:00 AM Laboratory - Chemistry Order OXYCODONE SCREEN PANEL URINE (DRUG) [facility] Sep 21, 2024 12:00 AM Laboratory - Chemistry Order METHADONE SCREEN URINE [facility] Lab Results: +/- 30 days of the encounter This section includes the Chemistry and Hematology Lab Results on record with DC for the patient. Radiology Reports and Pathology Reports are provided separately, in subsequent sections. Lab Results This section contains the Chemistry/Hematology Results that were resulted 30 days before or 30 daysafter the date of the Encounter. Date/Time Source Result Type Result - Unit Interpretation Reference Range Comment Sep 07, 2024 09:20 AM [facility] TSH Specimen Type: SERUM No comment entered. Ordering Provider: CHANI RHODES Report Released Date/Time: Sep 06, 2024 01:20 PM Reporting [facility] [address] [address] Performing Lab: [facility] [address] [address] TSH 1.86 u[IU]/mL 0.35-5.00 Sep 07, 2024 09:20 AM [facility] PSA Specimen Type: SERUM No comment entered. Ordering Provider: CHANI RHODES Report Released Date/Time: Sep 06, 2024 01:20 PM Reporting Lab: [facility] [address] [address] Performing Lab: [address] [address] PSA 0.33 ng/mL 0.00-4.00 Sep 07, 2024 09:20 AM [facility] HEMOGLOBIN A1C PANEL Specimen Type: BLOOD Comment: [...] Sep 06, 2024 01:20 PM Reporting Lab: [address] [address] Performing Lab: [address] [address] HEMOGLOBIN A1C 8.1 H 4.0-5.6 Sep 07, 2024 09:20 AM [facility] LIPID PANEL FASTING Specimen Type: SERUM Comment: Hemolysis present analysis cannot be performed. Hemolysis present may falsly elevate Potassium Total and Direct Bili, Iron, AST, %Fe. Ordering Provider: CHANI RHODES Report Released Date/Time: Sep 06, 2024 01:20 PM Reporting Lab: [address] [address] Performing Lab: [address] [place] [address] CHOLESTEROL 131 mg/dL TRIGLYCERIDE 219 mg/dL H 0-150 LDL calculated 55 mg/dL 0-129 CHOL/HDL 4.1 HDL CHOLESTEROL 32 mg/dL L 40-60 Sep 07, 2024 09:20 AM [facility] LIVER FUNCTION Specimen Type: SERUM Comment: Hemolysis present analysis cannot be performed. Hemolysis present may falsly elevate Potassium Total and Direct Bili, Iron, AST, %Fe. Ordering Provider: CHANI RHODES Report Released Date/Time: Sep 06, 2024 01:20 PM Reporting Lab: [address] [address] Performing Lab: [address] [address] PROTEIN,TOTAL 7.5 g/dL 6.0-8.3 ALBUMIN 3.9 g/dL 3.5-5.0 ALKALINE PHOSPHATASE 80 U/L 40-150 AST 34 U/L 5-34 ALT 56 U/L H BILIRUBIN, TOTAL comment mg/dL 0.2-1.2 BILIRUBIN, DIRECT comment mg/dL 0-0.5 Sep 07, 2024 09:20 AM [facility] BASIC METABOLIC PANEL (fasting) Specime n Type: SERUM Comment: Hemolysis present analysis cannot be performed. Hemolysis present may falsly elevate Potassium Total and Direct Bili, Iron, AST, %Fe. Ordering Provider: CHANI RHODES Report Released Date/Time: Sep 06, 2024 01:20 PM Reporting Lab: [address] [address] Performing Lab: [address] [address] UREA NITROGEN 15 mg/dL 7-25 GLUCOSE 176 mg/dL H 65-100 SODIUM 139 mmol/L 135-145 POTASSIUM 4.4 mmol/L 3.5-5.0 CHLORIDE 104 mmol/L 100-110 CO2 23 meq/L 20-30 CREATININE, Serum 1.15 mg/dL 0.50-1.40 eGFR(CKD-EPI 2020) 73 mL/min >60 Sep 07, 2024 09:20 AM [facility] MICROALBUMIN CREATININE RATIO PANEL Spe cimen Type: URINE No comment entered. Ordering Provider: CHANI RHODES Report Released Date/Time: Sep 06, 2024 01:20 PM Reporting Lab: [address] [address] Performing Lab: [address] [address] MICROALBUMIN/C REATININE RATIO 18.2 mg/g 0-29.9 MICROALBUMIN,Q UANTITATIVE 0.9 mg/dL RR UNAVAIL CREATININE URINE 49.56 mg/dL Sep 07, 2024 09:20 AM [facility] URINALYSIS Specimen Type: URINE Comment: If Glucose = >500 and Ketones are positive, please alert the Physician. Ordering Provider: CHANI RHODES Report Released Date/Time: Sep 06, 2024 01:20 PM Reporting Lab: [address] [address] Performing Lab: [address] [address] UA COLOR Colorless Yellow UA APPEARANCE Clear Clear UA GLUCOSE >1000 mg/dL Negative UA KETONES NEGATIVE mg/dL Negative UA BLOOD NEGATIVE mg/dL Negative UA PROTEIN NEGATIVE mg/dL Negative UA NITRITE NEGATIVE mg/dL Negative UA BILIRUBIN NEGATIVE mg/dL Negative UA SPECIFIC GRAVITY 1.023 H 1.016-1.022 UA pH 6.0 5.0-9.0 UA UROBILINOGEN Normal mg/dL <2.0 UA LEUKOCYTE NEGATIVE Negative Sep 07, 2024 09:20 AM [facility] CBC AND DIFF (AUTO) Specimen Type: BLOOD No comment entered. Ordering Provider: CHANI RHODES Report Released Date/Time: Sep 06, 2024 01:20 PM Reporting Lab: [address] [address] Performing Lab: [address] [address] WBC 5.45 10*3/uL 4.50-11.00 RBC 5.45 10*6/uL [...] 08:30 AM [facility] Tobacco Use History This section includes a history of the smoking, or tobacco-related health factors, that were collected on or before the date of the Encounter. The data comes from the [place] facility where the Encounter took place. Date/Time Smoking Status/Tobacco Use Comment F [facility] Mar 11, 2023 08:30 AM VA-TOBACCO QUIT 15 YRS OR MORE DC [facility] [place] [facility] Dec 27, 2020 02:00 PM VA-TOBACCO FORMER USER DC [facility] [place] [facility] Dec 27, 2020 02:00 PM VA-TOBACCO QUIT 15 YRS OR MORE DC [facility] [place] [facility] Advance Directives: All historical and current [...] Encounter. Date/Time Encounter Note(s) Provider Source Oct 05, 2024 11:23 AM ADDENDUM: LOCAL TITLE: Addendum STANDARD TITLE: ADDENDUM DATE OF NOTE: OCT 05, 2024@11:23:53 ENTRY DATE: OCT 05, 2024@11:23:54 AUTHOR: BHARGAV WELCH COSIGNER: URGENCY: STATUS: COMPLETED Please take [place]'s e[employer] form from PACT 8 RN mailbox and provide form to provider for review and completion if appropriate. /lora/ NIMCO SYKES RN-BC REGISTERED NURSE Signed: 10/05/2024 11:24 Receipt Acknowledged By: 10/07/2024 10:26 /lora/ PEDRO STEWART LPN LPN ==== --- Original Document --- 10/04/24 WALK-IN NOTE PRIMARY CARE (T): <====Click to Start Advanced Medical Support presents to the Primary Care clinic with the following request: [ ]Medication Renewal/Refill [ ]Consultation with Team RN [ ]Symptoms [ X ]Other The [place] states they are: [ ]Waiting [ X ]Not Waiting No Walk in visit scheduled with PACT Nurse [ X ] At this encounter the 's demographics were verified. [ X ] At this encounter the 's Insurance information was verified. [ X ] At this encounter the below scheduled visits for the were discussed and appointment reminder card was offered. Future appointments: 10/15/2024 08:00 CWM/SO/PODIATRY/ROSS 10/27/2024 09:30 CWM/SO/PHARM/PACT 2 11/04/2024 15:00 CWM/NO/VVC/PAIN MD CLINIC 11/18/2024 09:30 SOP-V01 [facility] LIVER MD-02 P 01/20/2025 10:00 CWM/SO/PACT 7 05/03/2025 10:00 NHM/OPTOMETRY/WELSH/ [facility] forms placed in pact RN's mailbox. /lora/ EITAN [place] [employer]VANCED MORTGAGE ACCOUNTING CLERK Signed: 10/04/2024 15:43 Receipt Acknowledged By: 10/05/2024 11:23 /lora/ NIMCO SYKES RN-BC REGISTERED NURSE 10/04/2024 15:57 /es/ MANDO COOLEY LPN Licensed Practical Nurse 10/07/2024 ADDENDUM STATUS: COMPLETED No document from [place] found in mailbox. /lora/ PEDRO SETWART LPN LPN Signed: 10/07/2024 10:26 BHARGAV WELCH Oct 04, 2024 03:42 PM PRIMARY CARE NOTE: LOCAL TITLE: WALK-IN NOTE PRIMARY CARE (T) STANDARD TITLE: PRIMARY CARE NOTE DATE OF NOTE: OCT 04, 2024@15:42 ENTRY DATE: OCT 04, 2024@15:42:14 AUTHOR: EITAN N[place]OLES EXP COSIGNER: URGENCY: STATUS: COMPLETED WALK-IN NOTE PRIMARY CARE (T) Has ADDENDA <====Click to Start Advanced Medical Support presents to the Primary Care clinic with the following request: [ ]Medication Renewal/Refill [ ]Consultation with Team RN [ ]Symptoms [ X ]Other The [place] states they are: [ ]Waiting [ X ]Not Waiting No Walk in visit scheduled with PACT Nurse [ X ] At this encounter the [place]'s demographics were verified. [ X ] At this encounter the [place]'s Insurance information was verified. [ X ] At this encounter the below scheduled visits for the [place] were discussed and appointment reminder card was offered. Future appointments: 10/15/2024 08:00 CWM/SO/PODIATRY/ROSS 10/27/2024 09:30 CWM/SO/PHARM/PACT 2 11/04/2024 15:00 CWM/NO/VVC/PAIN MD CLINIC 11/18/2024 09:30 SOP-V01 [facility] LIVER MD-02 P 01/20/2025 10:00 CWM/SO/PACT 7 05/03/2025 10:00 NHM/OPTOMETRY/WELSH/ [place] dropped off paperwork to be filled out for [employer]., forms placed in pact RN's mailbox. /lora/ EITAN NAPOLES ADVANCED MORTGAGE ACCOUNTING CLERK Signed: 10/04/2024 15:43 Receipt Acknowledged By: 10/05/2024 11:23 /lora/ NIMCO SYKES RN-BC REGISTERED NURSE 10/04/2024 15:57 /es/ MANDO COOLEY LPN Licensed Practical Nurse 10/05/2024 ADDENDUM STATUS: COMPLETED Please take [place]'s e[employer] form from [employer] RN mailbox and provide form to provider for review and completion if appropriate. /NIMCO Spear RN-JUSTIN REGISTERED NURSE Signed: 10/05/2024 11:24 Receipt Acknowledged By: 10/07/2024 10:26 /lora/ PEDRO STEWART LPN LPN 10/07/2024 ADDENDUM STATUS: COMPLETED No document from [facility] found in mailbox. /lora/ PEDRO STEWART LPN LPN Signed: 10/07/2024 10:26 10/11/2024 ADDENDUM STATUS: COMPLETED Called [place] and advised that completed form and copy for [facility]'s personal records available for pickup at [facility]. Copy of completed form sent to scanning via [employer] link. /NIMCO Spear RN-BC REGISTERED NURSE Signed: 10/11/2024 08:48 EITAN N[place]OLES
--- OUTSIDE RECORDS SUMMARY | 2024-10-11 11:12 | XMS_ITS | Encounter Summary ---
Author Name [facility] [facility] [place] [facility] [place] [facility] [place] Address [address] [place] [address] Care Team Providers Care Table And Desk Finisher Name Role Phone MARELY WILKES Primary Care [...] to Policy Zayas [employer] DENT[employer] DENTAL INSURANCE [facility] February 03, 2022 [id number] [phone] EMERITA BAUTISTA PATIENT [facility] MEDICAID MEDICAID MEDIC AID Oct 06, 2013 MEDICAI D [id number] EMERITA BAUTISTA PATIENT MEDICARE (WNR) MEDICARE (M) PART A Mar 06, 2015 PART A [id number] [phone] EMERITA BAUTISTA PATIENT MEDICARE (WNR) MEDICARE (M) PART B Mar 06, 2015 PART B [id number] [phone] EMERITA BAUTISTA PATIENT MEDICARE (WNR) MEDICARE (M) PART B Mar 06, 2015 PART B [id number] [phone] EMERITA BAUTISTA PATIENT MEDICARE (WNR) MEDICARE (M) PART A Mar 06, 2015 PART A [id number] [phone] EMERITA BAUTISTA PATIENT MEDICARE (WNR) MEDICARE (M) PART B Mar 06, 2015 PART B [id number] EMERITA BAUTISTA PATIENT MEDICARE (WNR) MEDICARE (M) PART A Mar 06, 2015 PART A [id number] EMERITA BAUTISTA PATIENT MEDICARE (WNR) MEDICARE (M) PART B Mar 06, 2015 PART B [id number] EMERITA BAUTISTA PATIENT Selected Encounter This section includes the information on record at [place] for the Encounter. Date/Time Encounter Type Encounter Description Reason Provider Source Sep 16, 2024 08:30 AM OFFICE O/P EST HI 40 MIN PRIMARY CARE/MEDICINE ICD-10-CM M15.9 Polyosteoarthriti s, unspecified MARELY WILKES Behzad Encounter Template Text not used by [facility] Assessments - Encounter Diagnoses This section includes the primary and secondary diagnoses documented for the Encounter. 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 MARELY WILKES Sep 16, 2024 08:38 PM SECONDARY Obesity, unspecified MARELY WILKES NILS Sep 16, 2024 08:38 PM SECONDARY Other intervertebral disc disorders, lumbar region MARELY WILKES Sep 16, 2024 08:38 PM SECONDARY Radiculopathy, cervical region MARELY WILKES Sep 16, 2024 08:38 PM SECONDARY Type 2 diabetes mellitus with diabetic neuropathy, unsp MARELY WILKES Sep 16, 2024 08:38 PM SECONDARY Type 2 diabetes mellitus without complications MARELY WILKES Plan of Treatment: Future Appointments (+ 6 months) and Future Tests (+/- 45 days) The Plan of Treatment section includes future care activities for the patient [facility] [place] [facility] This section includes future appointments and future orders which are active, pending or scheduled. Future Appointments This section includes appointments that were scheduled to occur 6 months from the date of the Encounter, up to a maximum of 20 appointments. The data comes from all [facility]. Appointment Date/Time Appointment Type Appointme nt Facility Name Sep 23, 2024 03:30 PM [place] [facility] Sep 24, 2024 12:00 PM [place] [facility] Sep 30, 2024 08:55 AM [place] [facility] Oct 04, 2024 08:00 AM [place]ORY [place] [facility] Oct 15, 2024 08:00 AM AMBULATORY - MEDICINE [place] [place] Oct 27, 2024 09:30 AM AM[place]UL[place]ORY [place] [facility] Nov 04, 2024 03:00 PM AM[place]ORY [place]INE [place] [facility] Nov 18, 2024 09:30 AM [facility] Nov 18, 2024 09:30 AM AMBULATORY - MEDICINE [facility] Jan 20, 2025 10:00 AM AMBULATORY - MEDICINE [facility] Active, Pending, and Scheduled Orders This section includes a listing of several types of active, pending, and scheduled orders, including clinic medications orders, diagnostic test orders, procedure orders and consult orders; where the start date of the order is 45 days before the date of the Encounter or 45 days after the date of theEncounter. The data comes from all [facility]. Test Date/Time Test Type Test Details Facility Name Aug 25, 2024 01:01 PM Consult Order [facility] Biology [facility] Member's Choice [place] Sep 16, 2024 08:39 PM Consult Order HEPATOLOGY SERVICES [facility] Cons Biology Faculty Member's Choice [place] Sep 21, 2024 12:00 AM Laboratory - Chemistry Order AMPHETAMINES SCREEN PANEL URINE (DRUG) [facility] Sep 21, 2024 12:00 AM Laboratory - Chemistry Order ALCOHOL, ETHYL URINE PANEL URINE (DRUG) [facility] Sep 21, 2024 12:00 AM Laboratory - Chemistry Order FENTANYL SCREEN PANEL URINE (DRUG[facility] Sep 21, 2024 12:00 AM Laboratory - Chemistry Order BENZODIAZEPINES SCREEN PANEL URINE (DRUG) [facility] Sep 21, 2024 12:00 AM Laboratory - Chemistry Order BUPRENORPHINE SCREEN PANEL URINE [facility]DRUG[facility] Sep 21, 2024 12:00 AM Laboratory - Chemistry Order CANNABINOIDS SCREEN PANEL URINE (DRUG) [facility] Sep 21, 2024 12:00 AM Laboratory - Chemistry Order COCAINE SCREEN PANEL URINE (DRUG) [facility] Sep 21, 2024 12:00 AM Laboratory - Chemistry Order METHADONE SCREEN URINE SP [facility] Sep 21, 2024 12:00 AM Laboratory - Chemistry Order OPIATES SCREEN PANEL URINE (DRUG) [facility] Sep 21, 2024 12:00 AM Laboratory - Chemistry Order OXYCODONE SCREEN PANEL URINE (DRUG) [facility] Lab Results: +/- 30 days [...] Range Comment Sep 07, 2024 09:20 AM [place] TSH Specimen Type: SERUM No comment entered. Ordering Provider: MARELY WILKES Report Released Date/Time: Sep 06, 2024 01:20 PM Reporting Lab: [address] [phone] Performing Lab: [address] [address] TSH 1.86 u[IU]/mL 0.35-5.00 Sep 07, 2024 09:20 AM [place] PSA Specimen Type: SERUM No comment entered. Ordering Provider: MARELY WILKES Report Released Date/Time: Sep 06, 2024 01:20 PM Reporting Lab: [address] [phone] Performing Lab: [address] [address] PSA 0.33 ng/mL 0.00-4.00 Sep 07, 2024 09:20 AM [place] HEMOGLOBIN A1C PANEL Specimen Type: BLOOD Comment: [...] Sep 06, 2024 01:20 PM Reporting Lab: [address] [address] Performing Lab: [address] [address] HEMOGLOBIN A1C 8.1 H 4.0-5.6 Sep 07, 2024 09:20 AM [place] LIPID PANEL FASTING Specimen Type: SERUM Comment: Hemolysis present analysis cannot be performed. Hemolysis present may falsly elevate Potassium Total and Direct Bili, Iron, AST, %Fe. Ordering Provider: MARELY WILKES Report Released Date/Time: Sep 06, 2024 01:20 PM Reporting Lab: [address] [address] Performing Lab: [address] [address] CHOLESTEROL 131 mg/dL TRIGLYCERIDE 219 mg/dL H 0-150 LDL calculated 55 mg/dL 0-129 CHOL/HDL 4.1 HDL CHOLESTEROL 32 mg/dL L 40-60 Sep 07, 2024 09:20 AM [place] LIVER FUNCTION Specimen Type: SERUM Comment: Hemolysis present analysis cannot be performed. Hemolysis present may falsly elevate Potassium Total and Direct Bili, Iron, AST, %Fe. Ordering Provider: MARELY WILKES Report Released Date/Time: Sep 06, 2024 01:20 PM Reporting Lab: [address] [address] Performing Lab: [address] [phone] PROTEIN,TOTAL 7.5 g/dL 6.0-8.3 ALBUMIN 3.9 g/dL 3.5-5.0 ALKALINE PHOSPHATASE 80 U/L 40-150 AST 34 U/L 5-34 ALT 56 U/L H BILIRUBIN, TOTAL comment mg/dL 0.2-1.2 BILIRUBIN, DIRECT comment mg/dL 0-0.5 Sep 07, 2024 09:20 AM [place] BASIC METABOLIC PANEL (fasting) Specime n Type: SERUM Comment: Hemolysis present analysis cannot be performed. Hemolysis present may falsly elevate Potassium Total and Direct Bili, Iron, AST, %Fe. Ordering Provider: MARELY WILKES Report Released Date/Time: Sep 06, 2024 01:20 PM Reporting Lab: [address] [address] Performing Lab: [address] [address] UREA NITROGEN 15 mg/dL 7-25 GLUCOSE 176 mg/dL H 65-100 SODIUM 139 mmol/L 135-145 POTASSIUM 4.4 mmol/L 3.5-5.0 CHLORIDE 104 mmol/L 100-110 CO2 23 meq/L 20-30 CREATININE, Serum 1.15 mg/dL 0.50-1.40 eGFR(CKD-EPI 2020) 73 mL/min >60 Sep 07, 2024 09:20 AM [place] MICROALBUMIN CREATININE RATIO PANEL Spe cimen Type: URINE No comment entered. Ordering Provider: MARELY WILKES Report Released Date/Time: Sep 06, 2024 01:20 PM Reporting Lab: [address] [address] Performing Lab: [address] [address] MICROALBUMIN/C REATININE RATIO 18.2 mg/g 0-29.9 MICROALBUMIN,Q UANTITATIVE 0.9 mg/dL RR UNAVAIL CREATININE URINE 49.56 mg/dL Sep 07, 2024 09:20 AM [place] URINALYSIS Specimen Type: URINE Comment: If Glucose = >500 and Ketones are positive, please alert the Physician. Ordering Provider: MARELY WILKES Report Released Date/Time: Sep 06, 2024 01:20 PM Reporting Lab: [address] [phone] Performing Lab: [address] [address] UA COLOR Colorless Yellow UA APPEARANCE Clear Clear UA GLUCOSE >1000 mg/dL Negative UA KETONES NEGATIVE mg/dL Negative UA BLOOD NEGATIVE mg/dL Negative UA PROTEIN NEGATIVE mg/dL Negative UA NITRITE NEGATIVE mg/dL Negative UA BILIRUBIN NEGATIVE mg/dL Negative UA SPECIFIC GRAVITY 1.023 H 1.016-1.022 UA pH 6.0 5.0-9.0 UA UROBILINOGEN Normal mg/dL <2.0 UA LEUKOCYTE NEGATIVE Negative Sep 07, 2024 09:20 AM [place] CBC AND DIFF (AUTO) Specimen Type: BLOOD No comment entered. Ordering Provider: MARELY WILKES Report Released Date/Time: Sep 06, 2024 01:20 PM Reporting Lab: [address] [address] Performing Lab: [address] [address] WBC 5.45 10*3/uL 4.50-11.00 RBC 5.45 10*6/uL [...] 91 139/86 19 95 77 274 33 [facility] Social History: Smoking Status [...] Current Smoking Status Comment Facil tash Mar 08, 2024 09:00 AM [facility]-TOBACCO FORMER USER [place] Tobacco Use History This section includes a history of the smoking, or tobacco-related health factors, that were collected on or before the date of the Encounter. The data comes from the [place] facility where the Encounter took place. Date/Time Smoking Status/Tobacco Use Comment F acility Mar 08, 2024 09:00 AM VA-TOBACCO QUIT 15 YRS OR MORE [place] Mar 27, 2022 09:30 AM VA-TOBACCO FORMER USER [place] Mar 27, 2022 09:30 AM VA-TOBACCO QUIT 15 YRS OR MORE [place] Dec 22, 2018 10:29 AM VA-TOBACCO FORMER USER [place] Dec 22, 2018 10:29 AM VA-TOBACCO QUIT 15 YRS OR MORE [place] Mar 19, 2018 11:33 AM VA-TOBACCO FORMER USER [place] Mar 19, 2018 11:33 AM VA-TOBACCO QUIT 15 YRS OR MORE [place] May 13, 2017 01:22 PM QUIT TOBACCO USE > 7 YEARS AGO quit 24 yrs ago [place] Nov 15, 2015 09:48 AM QUIT TOBACCO USE > 7 YEARS AGO States he last smoked 21 years ago [place] Dec 07, 2009 02:51 PM QUIT TOBACCO USE > 7 YEARS AGO [place] Advance Directives: All historical and current Section [...] MARELY WILKES EXP COSIGNER: URGENCY: STATUS: COMPLETED [facility] [address] [place] [phone] * Date: SEP 16, 2024 Re: EMERITA [...] ability to concentrate as well. Please call [phone] if you have any questions or concerns. Sincerely, Marely Wilkes, MSN, CHARCOAL UNLOADER [facility] [address] [place] [address] T [phone] MARELY WILKES [place] Sep 16, 2024 08:37 AM PRIMARY CARE NURSE PRACTITIONER OUTPATIENT NOTE: LOCAL TITLE: NURSE PRACTITIONER OUTPATIENT NOTE STANDARD TITLE: PRIMARY CARE NURSE PRACTITIONER OUTPATIENT NOTE DATE OF NOTE: SEP 16, 2024@08:37 ENTRY DATE: SEP 16, 2024@08:37:05 AUTHOR: MARELY WILKES EXP COSIGNER: URGENCY: STATUS: COMPLETED PRIMARY CARE VISIT EMERITA Calvin LILY, is a 58 y/o BLACK OR MALE [place] who presents today at the [place] [facility]. TYPE OF VISIT: Face to face New to this provider. HPI: HTN - BP today 139/86; doesn't check at home. On lisinopril. HLD - TG elevated. On statin. Doesn't watch diet. Obesity - BMI 33. Doesn't watch diet. Currently on semaglutide. fatty liver - US 03/08/24. Has not had f/u. Denies ETOH. DM2 - A1c 8.1; up from 7.4. On semaglutide and Jardiance, metformin and basal insulin. Has been unable to tolerate highest dose of semaglutide. Has CGM. Followed by CPP. Reports peripheral neuropathy, numbness and tingling in toes. On gabapentin. OA mutliple sites - c/o severe pain left knee today, is limping. Has chronic neck and low back pain as well. Followed by pain management. ON underwear cutter Bup, Wray. Recent labs reviewed and all medications were reconciled during this visit. HEALTHCARE PROVIDERS: community PCP pain management HISTORY: PERIOD OF SERVICE - [employer] FROM Jun TO Apr COMBAT SERVICE INDICATED: No VITAL SIGNS: Temperature 97.9 F [36.6 C] (09/16/2024 08:36) Blood Pressure 139/86 (09/16/2024 08:36) Pulse 91 (09/16/2024 08:36) Respiration 19 (09/16/2024 08:36) Pain 9 (08/19/2024 09:25) BMI BMI: 32.6 Weight 274 lb [124.28 kg] (09/16/2024 08:36) Pulse Oximetry 95% (09/16/2024 08:36) ASSISTIVE DEVICES: cane REVIEW OF SYSTEMS: CONSTITUTIONAL: No fevers, chills, unexpected weight changes. CARDIOVASCULAR: No chest pain, palpitations or peripheral edema. RESPIRATORY: No SOB, cough, sputum, wheeze. GASTROINTESTINAL: Denies abdominal pain, N/V, bloating. Occasional loose stools. No melena or hematochezia. GENITOURINARY: No dysuria, hematuria, urinary frequency or urgency. No nocturia. MUSCULOSKELETAL: Left knee pain, causing him to limp. Neck and low back pain. SKIN: Denies rashes, open areas or concerns PSYCHIATRIC: No new anxiety or depression. No sleep disturbance. NEUROLOGIC: No headaches, dizziness or unilateral weakness. + numbness and tingling to toes. PHYSICAL EXAMINATION: General: Well-appearing [place] in no obvious distress. Obese. Mental Status: Alert and oriented x4. Neck: Supple. No lymphadenopathy. No bruit. Thyroid unremarkable. Lungs: CTAB. Normal chest excursion. Eupneic respirations. CV: Heart tones S1, S2. RRR. No M/G/R. No peripheral edema. GI: Abdomen is soft and nontender. No palpable mass or organomegaly. MS: Full ROM all joints, crepitus b/l knees. Pain with ROM left knee. Limited ROM cervical and lumbar spine, no spinal deformity. Neuro: CN II through XII grossly intact. Diminished sensation b/l feet. Psych: Normal mood and affect. Normal judgment. Cooperative with exam, follows commands. ALLERGIES: Patient has answered [facility] [employer] - see end of note PREVENTIVE MEDICINE GOALS Info Only: [facility] Video Connect Capable DUE NOW Advance Directive Screen MH AD Jul 28 Pneumococcal Conjugate Vaccine (PCV15/PCDUE NOW Medication Reconciliation DUE NOW Td / Tdap Immunization May 09 COVID-19 Immunization DUE NOW Opioid Drug Screening V2 DUE NOW PAVE Foot Check DUE NOW (Optional) Whole Health Documentation DUE NOW ASSESSMENT/PLAN: Active problems - Computerized Problem List is the source for the followin. Obesity - BMI 33. Currently on semaglutide. Activity limited d/t pain issues. Recommend low fat, low ruby diet. Declines referral to MOVE, nutrition. 2. Osteoarthritis of multiple joints - followed by pain management. Continues on Bup, Wray. 3. CLBP - chronic low back pain. See above. Declines referral to chiro, acupuncture. 4. Cervical radiculopathy - See above. 5. Long-term current use of opiate analgesic drug - managed by pain management. 6. HTN - Hypertension ([facility] [id number]). Advised to spot check at [facility], BP goal < 140/80. Recommend weight loss, low salt diet. Continue Rx. 7. Hyperlipidemia ([facility] [id number]) - TG elevated. Recommend low fat, high fiber diet, weight loss. Continue statin therapy. 8. Fatty liver - US 03/08/24. Reports loose stools but no other GI sx. Referral made to hepatology. Avoid NSAIDs. No ETOH. Recommend weight loss. 9. Diabetic neuropathy - continue gabapentin for symptoms. Referral sent to podiatry. 10. Type 2 diabetes mellitus - A1c up to 8.1. Followed by CPP. Has been unable to tolerate highest dose semaglutide, may benefit from tirzepatide insteady - note sent to CPP. FOLLOW UP: Return to clinic as noted below and/or sooner PRN UPCOMING APPOINTMENTS: 09/24/2024 12:00 CWM/NO/VVC/PAIN [facility] CLINIC 09/30/2024 08:55 COM CARE-ORTHO GEN 10/27/2024 09:30 CWM/SO/PHARM/PACT 2 05/03/2025 10:00 NHM/OPTOMETRY/WELSH/ No barriers noted; patient understands and agrees to current treatment plan. If patient has any questions, concerns or changes in current health status he/she will call or come in to the [facility]. A total of 45 minutes were spent F2F with the patient during this encounter and over half that time was spent on counseling and coordination of care. We discussed in depth all current health conditions and management of these conditions. HM: Info Only: [facility] Video Connect Capable: Medication Reconciliation: Outpatient: Has the patient been taking medications as documented in the EMLR? YES: The patient has been taking medications as documented in the EMLR. Essential Medication List for Review used to complete this medication reconciliation. INCLUDED IN THIS LIST: Alphabetical list of active outpatient prescriptions dispensed from this [facility] (local) and dispensed from another [facility] or [facility] facility (remote) as well as inpatient orders [...] whether with a VA or non-VA provider. /lora/ JASMYNE SCHMITZ CERTIFIED NURSE PRACTITIONER Signed: 10/02/2024 19:04 MARELY WILKES [place]
--- OUTSIDE RECORDS SUMMARY | 2024-10-11 11:13 | XMS_ITS | Encounter Summary ---
Author Name [facility] [place] Organization [facility] [place] Address [address] [place] [address] Care Team Providers Care Diesel Mechanic Name Role Phone CHANI RHODES Primary [...] Policy Zayas [employer] D[employer]ANCE [facility] February 03, 2022 [id number] [phone] EMERITA BAUTISTA PATIENT [facility] MEDICAID MEDICAID MEDIC AID Oct 06, 2013 MEDICAI D [id number] EMERITA BAUTISTA PATIENT MEDICARE (WNR) MEDICARE (M) PART A Mar 06, 2015 PART A [id number] [phone] EMERITA BAUTISTA PATIENT MEDICARE (WNR) MEDICARE (M) PART B Mar 06, 2015 PART B [id number] EMERITA BAUTISTA PATIENT MEDICARE (WNR) MEDICARE (M) PART B Mar 06, 2015 PART B [id number] EMERITA BAUTISTA PATIENT MEDICARE (WNR) MEDICARE (M) PART A Mar 06, 2015 PART A [id number] [phone] EMERITA BAUTISTA PATIENT MEDICARE (WNR) MEDICARE (M) PART B Mar 06, 2015 PART B [id number] EMERITA BAUTISTA PATIENT MEDICARE (WNR) MEDICARE (M) PART A Mar 06, 2015 PART A [id number] [phone] EMERITA BAUTISTA PATIENT MEDICARE (WNR) MEDICARE (M) PART B Mar 06, 2015 PART B [id number] [phone] EMERITA BAUTISTA PATIENT Selected Encounter This section includes the information on record at [place] for the Encounter. Date/Time Encounter Type Encounter Description Reason Provider Source Oct 04, 2024 08:00 AM MTMS BY PHARM ASSOCIATE ART DIRECTOR 15 MIN TELEPHONE PRIMARY CARE ICD-10-CM E11.9 Type 2 diabetes mellitus without complications JOAQUÍN BECK Behzad Encounter Template Text not used by DC Assessments - Encounter Diagnoses This section includes the primary and secondary diagnoses documented for the Encounter. Date/Time Primary/Secondary Diagnosis Diagnosis Name Provider Source Oct 04, 2024 08:00 AM PRIMARY Type 2 diabetes mellitus without complications TAO BECK [facility] Plan of Treatment: Future Appointments (+ 6 months) and Future Tests (+/- 45 days) The Plan of Treatment section includes future care activities for the patient from all [place] treatmentfacilities. This section includes future appointments and [...] 27, 2024 09:30 AM AMBULATORY - MEDICINE [place] [facility] Nov 04, 2024 03:00 PM AMBULATORY - MEDICINE DC [facility] [...] PM Consult Order [facility] Cons Account Manager Sales Representative's [facility] Sep 16, 2024 08:39 PM Consult Order HEPATOLOGY SERVICES [facility] WHAV Cons Account Manager Sales Representative's [facility] Sep 21, 2024 12:00 AM Laboratory - Chemistry Order ALCOHOL, ETHYL URINE PANEL URINE (DRUG) [facility] Sep 21, 2024 12:00 AM Laboratory - Chemistry Order AMPHETAMINES SCREEN PANEL URINE (DRUG) SP [facility] Sep 21, 2024 12:00 AM Laboratory - Chemistry Order FENTANYL SCREEN PANEL URINE (DRUG) [facility] [place] Sep 21, 2024 12:00 AM Laboratory - Chemistry Order BENZODIAZEPINES SCREEN PANEL URINE (DRUG) SP [facility] Sep 21, 2024 12:00 AM Laboratory - Chemistry Order BUPRENORPHINE SCREEN PANEL URINE (DRUG) [facility] Sep 21, 2024 12:00 AM Laboratory - Chemistry Order CANNABINOIDS SCREEN PANEL URINE (DRUG) [facility] Sep 21, 2024 12:00 AM Laboratory - Chemistry Order COCAINE SCREEN PANEL URINE (DRUG) SP DC [facility] Sep 21, 2024 12:00 AM Laboratory - Chemistry Order METHADONE SCREEN URINE SP DC [facility] Sep 21, 2024 12:00 AM Laboratory - Chemistry Order OPIATES SCREEN PANEL URINE (DRUG) SP DC [facility] Sep 21, 2024 12:00 AM Laboratory - Chemistry Order OXYCODONE SCREEN PANEL UR[facility]DRUG[facility] Lab Results: +/- 30 days of [...] Range Comment Sep 07, 2024 09:20 AM [facility] TSH Specimen Type: SERUM No comment entered. Ordering Provider: CHANI RHODES Report Released Date/Time: Sep 06, 2024 01:20 PM Reporting Lab: [address] [address] Performing Lab: [address] [address] TSH 1.86 u[IU]/mL 0.35-5.00 Sep 07, 2024 09:20 AM [facility] PSA Specimen Type: SERUM No comment entered. Ordering Provider: CHANI RHODES Report Released Date/Time: Sep 06, 2024 01:20 PM Reporting Lab: [address] [address] Performing Lab: [address] [address] PSA 0.33 ng/mL 0.00-4.00 Sep 07, 2024 09:20 AM [facility] BASIC METABOLIC PANEL (fasting) Specime n Type: SERUM Comment: Hemolysis present analysis cannot be performed. Hemolysis present may falsly elevate Potassium Total and Direct Bili, Iron, AST, %Fe. Ordering Provider: CHANI RHODES Report Released Date/Time: Sep 06, 2024 01:20 PM Reporting Lab: [address] [address] Performing Lab: [address] [address] UREA NITROGEN 15 mg/dL 7-25 GLUCOSE 176 mg/dL H 65-100 SODIUM 139 mmol/L 135-145 POTASSIUM 4.4 mmol/L 3.5-5.0 CHLORIDE 104 mmol/L 100-110 CO2 23 meq/L 20-30 CREATININE, Serum 1.15 mg/dL 0.50-1.40 eGFR(CKD-EPI 2020) 73 mL/min >60 Sep 07, 2024 09:20 AM [facility] LIPID PANEL FASTING Specimen Type: SERUM Comment: Hemolysis present analysis cannot be performed. Hemolysis present may falsly elevate Potassium Total and Direct Bili, Iron, AST, %Fe. Ordering Provider: CHANI RHODES Report Released Date/Time: Sep 06, 2024 01:20 PM Reporting Lab: [address] [address] Performing Lab: [address] [address] CHOLESTEROL 131 mg/dL TRIGLYCERIDE 219 mg/dL H 0-150 LDL calculated 55 mg/dL 0-129 CHOL/HDL 4.1 HDL CHOLESTEROL 32 mg/dL L 40-60 Sep 07, 2024 09:20 AM [facility] LIVER FUNCTION Specimen Type: SERUM Comment: Hemolysis present analysis cannot be performed. Hemolysis present may falsly elevate Potassium Total and Direct Bili, Iron, AST, %Fe. Ordering Provider: CHANI RHODES Report Released Date/Time: Sep 06, 2024 01:20 PM Reporting Lab: [address] [address] Performing Lab: [address] [address] PROTEIN,TOTAL 7.5 g/dL 6.0-8.3 ALBUMIN 3.9 g/dL 3.5-5.0 ALKALINE PHOSPHATASE 80 U/L 40-150 AST 34 U/L 5-34 ALT 56 U/L H BILIRUBIN, TOTAL comment mg/dL 0.2-1.2 BILIRUBIN, DIRECT comment mg/dL 0-0.5 Sep 07, 2024 09:20 AM [facility] HEMOGLOBIN A1C PANEL Specimen Type: BLOOD Comment: [...] Sep 06, 2024 01:20 PM Reporting Lab: [address] [address] Performing Lab: [facility] [address] [facility] [address] HEMOGLOBIN A1C 8.1 H 4.0-5.6 Sep 07, 2024 09:20 AM [facility] MICROALBUMIN CREATININE RATIO PANEL Spe cimen Type: URINE No comment entered. Ordering Provider: CHANI RHODES Report Released Date/Time: Sep 06, 2024 01:20 PM Reporting Lab: [address] [address] Performing Lab: [address] [address] MICROALBUMIN/C REATININE RATIO 18.2 mg/g 0-29.9 MICROALBUMIN,Q UANTITATIVE 0.9 mg/dL RR UNAVAIL CREATININE URINE 49.56 mg/dL Sep 07, 2024 09:20 AM [facility] URINALYSIS Specimen Type: URINE Comment: If Glucose = >500 and Ketones are positive, please alert the Physician. Ordering Provider: CHANI RHODES Report Released Date/Time: Sep 06, 2024 01:20 PM Reporting Lab: [address] [address] Performing Lab: [address] [address] UA COLOR Colorless Yellow UA APPEARANCE Clear Clear UA GLUCOSE >1000 mg/dL Negative UA KETONES NEGATIVE mg/dL Negative UA BLOOD NEGATIVE mg/dL Negative UA PROTEIN NEGATIVE mg/dL Negative UA NITRITE NEGATIVE mg/dL Negative UA BILIRUBIN NEGATIVE mg/dL Negative UA SPECIFIC GRAVITY 1.023 H 1.016-1.022 UA pH 6.0 5.0-9.0 UA UROBILINOGEN Normal mg/dL <2.0 UA LEUKOCYTE NEGATIVE Negative Sep 07, 2024 09:20 AM [facility] CBC AND DIFF (AUTO) Specimen Type: BLOOD No comment entered. Ordering Provider: CHANI RHODES Report Released Date/Time: Sep 06, 2024 01:20 PM Reporting Lab: [address] [address] Performing Lab: [address] [address] WBC 5.45 10*3/uL 4.50-11.00 RBC 5.45 10*6/uL [...] Ana bianchi Mar 08, 2024 09:00 AM DC-TOBACCO FORMER USER [facility] Tobacco Use History This section includes a history of the smoking, or tobacco-related health factors, that were collected on or before the date of the Encounter. The data comes from the [place] facility where the Encounter took place. Date/Time Smoking Status/Tobacco Use Comment F ruben Mar 08, 2024 09:00 AM VA-TOBACCO QUIT 15 YRS OR MORE [facility] Mar 27, 2022 09:30 AM VA-TOBACCO FORMER USER [facility] Mar 27, 2022 09:30 AM VA-TOBACCO QUIT 15 YRS OR MORE [facility] Dec 22, 2018 10:29 AM VA-TOBACCO FORMER USER [facility] Dec 22, 2018 10:29 AM VA-TOBACCO QUIT 15 YRS OR MORE [facility] Mar 19, 2018 11:33 AM VA-TOBACCO FORMER USER [facility] Mar 19, 2018 11:33 AM VA-TOBACCO QUIT 15 YRS OR MORE [facility] May 13, 2017 01:22 PM QUIT TOBACCO USE > 7 YEARS AGO quit 24 yrs ago [facility] Nov 15, 2015 09:48 AM QUIT TOBACCO USE > 7 YEARS AGO States he last smoked 21 years ago [facility] Dec 07, 2009 02:51 PM QUIT TOBACCO USE > 7 YEARS AGO [facility] Advance Directives: All historical and current Section Date Range: From patient's date of to the date document was created. This section includes ALL of a patient's completed or amended [place] Advance and Rescinded Directives. The entries below [...] Encounter Note(s) Provider Source Oct 05, 2024 02:40 PM PHARMACY OUTPATIEN T NOTE: LOCAL TITLE: PHARMACY CLINIC NOTE STANDARD TITLE: PHARMACY OUTPATIENT NOTE DATE OF NOTE: OCT 05, 2024@14:40 ENTRY DATE: OCT 05, 2024@14:40:47 AUTHOR: SHANDA BECK COSIGNER: URGENCY: STATUS: COMPLETED Patient Name: EMERITA BAUTISTA was seen via tele for follow-up for diabetes management treatment. : Sep Age: 59 Sex: MALE Race: BLACK OR Subjective: Pt presents for a f/up. He is doing well but BG continue to run high. He was approved for mounjaro - this call is designed to discuss transition from ozempic to mounjaro. Per prev:Pt presented to a f/up 17 minutes late. [...] running high and he ran out of [employer] couple months ago. Per prev: Pt presents [...] at work. He has been out of [employer] for a week b/c pt is too busy to [facility]. pt went to [place] 2 weeks ago for sick call for [...] note on 12/16/22: Pt presents at the [facility] for persistent watery diarrhea - 4-5 daily [...] A1C: 7%; FB-130 mg/dL; 2HRS PP <180mg/dL. Target Goals: A1C: 7%; FB-130 mg/dL; 2HRS PP <180mg/dL. Allergies: Patient has answered NKA PERTINENT INFORMATION: Active problems - Computerized Problem List is the source for the followin. Long-term current use of opiate analgesic drug 2. Obesity 3. Osteoarthritis of multiple joints 4. Degeneration of lumbar intervertebral disc 5. Cervical radiculopathy 6. HTN - Hypertension ([facility] [id number]) 7. Allergic Rhinitis ([facility] [id number]) 8. Vitamin D Deficiency ([facility] [id number]) 9. Hyperlipidemia ([facility] [id number]) 10. Fatty liver 11. Depression 12. History of surgery 13. Diabetic neuropathy 14. Erectile dysfunction 15. Type 2 diabetes mellitus 16. Under care of multiple providers 17. Bilateral hearing loss 18. Bilateral tinnitus CURRENT DIABETES MEDICATIONS Diabetes Medication Regimen: -- [...] on 03/2024 - Semaglutide 0.5 mg weekly (Wednesdays) Previous DM Medications: -- liraglutide 1.8mg daily - stopped on 09/19/23 - Trulicity - stopped when converted back to semaglutide -- Semaglutide 0.5 mg weekly - pt restarted on 10/17/23 ; stopped d/t ADR:stinky burps, abdominal pains ; stools were loose Adherence: Oral meds: denies missed doses Insulin: yes, Labs: HEMOGLOBIN A1C TREND Collection DT Spec HGBA1c 09/07/2024 09:20 BLOOD 8.1 H 03/08/2024 09:42 BLOOD 7.4 H 11/27/2023 10:26 BLOOD 8.2 H 05/07/2023 14:35 BLOOD 7.2 H 09/23/2022 09:57 BLOOD 8.0 H CBC TREND Collection DT Spec WBC RBC HGB HCT MCV MCH PLT 09/07/2024 09:20 BLOOD 5.45 5.45 16.4 48.6 89.2 30.1 128 L 03/08/2024 09:42 BLOOD 6.55 5.57 17.0 50.1 89.9 30.5 123 L 11/27/2023 10:26 BLOOD 5.30 5.70 H 17.2 H 51.0 H 89.5 30.2 131 L 05/07/2023 14:35 BLOOD 5.09 5.63 17.3 H 50.8 H 90.2 30.7 143 11/06/2022 14:26 BLOOD 4.98 5.63 17.0 49.4 87.7 30.2 143 CHEM 7 TREND LAB CUMULATIVE SELECTED Collection DT Spec GLUCOSE BUN CREATIN Sodium K+/Pot CL CO2 09/07/2024 09:20 SERUM 176 H 15 1.15 139 4.4 104 23 03/08/2024 09:42 SERUM 230 H 14 1.22 139 4.2 108 22 11/25/2023 09:22 SERUM 271 H 15 1.15 139 4.5 106 23 05/21/2023 10:31 SERUM 127 H 12 1.11 140 4.4 106 26 05/07/2023 14:35 SERUM 153 H 16 1.25 142 4.2 105 26 LAB CUMULATIVE SELECTED 2 No selection items chosen for this component. CHEM 7 Results Collection DT Spec Sodium K+/Pot CL CO2 GLUCOSE BUN 09/07/2024 09:20 SERUM 139 4.4 104 23 176 H 15 03/08/2024 09:42 SERUM 139 4.2 108 22 [...] Spec CHOL HDL CHO/HDL LDL-d LDL-c TRIG 09/07/2024 09:20 SERUM 131 32 L 4.1 55 219 H 03/08/2024 09:42 SERUM 126 30 L 4.2 57 197 H 11/25/2023 09:22 SERUM 228 H 31 L 7.4 145 H Reflex to dLDL 359 H 05/21/2023 10:31 SERUM 189 35 L 5.4 110 219 H 05/07/2023 14:35 SERUM 203 H 35 L 5.8 118 251 H THYROID PANEL Collection DT Specimen Test Name Result Units Ref Range 09/07/2024 09:20 [facility] TSH 1.86 uIU/mL 0.35 - 5.00 06/17/2013 11:20 SERUM Free T4 SR-REF 0.85 ng/dL 0.6 - 1.6 VITAMIN D 25-OH Collection DT Specimen Test Name Result Units Ref Range 09/23/2022 09:57 SERUM VITAMIN D (25-OH) <13 L ng/mL 20 - 50 SrCr (last 6 weeks): CREATININE-EGFR 09/07/24 09:20 1.15 CRCL IBW: CrCl(est): 96.3 mL/min (Creat:1.15 09/07/24) CRCL ACT: 100 mL/min CRCL ADJ: 96.3 mL/min (09/07/24) Vitals: Weight (BMI): 274 lb [124.28 kg] (09/16/2024 08:36) Height: 77 in [195.6 cm] (09/16/2024 08:36) BMI: 32.6 Active and Recently Outpatient Medications (including Supplies): Active Outpatient Medications Status Active Outpatient Medications (including Supplies): ACETAMINOPHEN 325MG TAB TAKE TWO TABLETS BY MOUTH THREE ACTIVE TIMES DAILY NEEDED Indication: FOR PAIN ACETAMINOPHEN 500MG TAB TAKE TWO TABLETS BY MOUTH THREE ACTIVE TIMES DAILY NEEDED FOR PAIN ATORVASTATIN CALCIUM 80MG TAB TAKE ONE TABLET BY MOUTH AT ACTIVE BEDTIME Indication: FOR HIGH CHOLESTEROL BUPRENORPHINE 15MCG/HR PATCH APPLY 1 PATCH TO SKIN EVERY 5 ACTIVE DAYS (REMOVE PATCH BEFORE APPLYING A NEW PATCH) Indication: FOR SEVERE CHRONIC PAIN CARBOXYMETHYLCELLULOSE NA 0.5% OPH SOLN INSTILL 1 DROP ACTIVE INTO EACH EYE FOUR TIMES A DAY Indication: FOR DRY EYE CHOLECALCIF 50MCG (D3-2,000UNIT) TAB TAKE ONE TABLET BY ACTIVE MOUTH ONCE DAILY FOR VITAMIN SUPPLEMENTATION Indication: FOR VITAMIN D DEFICIENCY EMPAGLIFLOZIN 25MG TAB TAKE ONE TABLET BY MOUTH ONCE DAILY ACTIVE Indication: FOR TYPE 2 DIABETES MELLITUS GABAPENTIN 300MG CAP TAKE TWO CAPSULES BY MOUTH THREE ACTIVE TIMES A DAY Indication: FOR NERVE PAIN GLUCOSE 4GM CHEW TAB CHEW FOUR TABLETS BY MOUTH NEEDED ACTIVE Indication: FOR LOW BLOOD SUGAR GLUCOSE SENSOR DEXCOM G7 USE 1 SENSOR DIRECTED EVERY 10 ACTIVE DAYS HYDROCODONE 5MG/ACETAMINOPHEN 325MG TAB TAKE 1 TABLET BY ACTIVE MOUTH TWICE DAILY NEEDED NEXT FILL 10/25 Indication: FOR PAIN INSULIN,ASPART(EQV-NOVLG)100UN/ML FLXPEN INJECT 27 UNITS ACTIVE SUBCUTANEOUSLY THREE TIMES A DAY BEFORE MEALS INJECT 15 MINUTES BEFORE MEALS IF MEAL SKIPPED SKIP THE DOSE Indication: FOR DIABETES INSULIN,GLARGINE-YFGN 100UNIT/ML PEN 3ML INJECT 46 UNITS ACTIVE SUBCUTANEOUSLY TWICE DAILY Indication: FOR DIABETES LIDOCAINE 5% PATCH APPLY 1 PATCH TOPICALLY ONCE DAILY ACTIVE NEEDED (LEAVE PATCH ON FOR 12 HOURS, THEN REMOVE PATCH) Indication: BACK PAIN LISINOPRIL 5MG TAB TAKE ONE TABLET BY MOUTH ONCE DAILY TO ACTIVE CONTROL BLOOD PRESSURE METFORMIN HCL 750MG 24HR SA TAB TAKE ONE TABLET BY MOUTH ACTIVE ONCE DAILY Indication: FOR TYPE 2 DIABETES MELLITUS SEMAGLUTIDE 0.25MG/0.375ML INJ PEN 3ML INJECT 0.5MG ACTIVE SUBCUTANEOUSLY ONCE A WEEK Indication: FOR TYPE 2 DIABETES MELLITUS MEDICATION RECONCILIATION: done BG readings: Date: 10/17/23 Dexcom G7 14 [...] LOW 0% VERY LOW sensor usage: 79% Date: 10/05/24 Dexcom G7 7 day avgt: 221 mg/dl; 22% VERY HIGH 60% HIGH 18% IN RANGE 0% LOW 0% VERY LOW [...] 03/2024 => 272 lbs 04/2024 => 273 lbs ASSESSMENT/PLAN: Per prev: Reviewed the dexcom G7 upload w/ [place]. Time in target drastically reduced to 13%. [...] and mentally. Reviewed nutrition. f/up in September. 10/05/24 Reviewed the data from the sensor - time in target very low at 18%. REcommend to increase dose of insulin glargine and transition pt to tirzepatide. REviewed the ADR profile of mounjaro. Will convert to equivalent dose - concern of pt having ADR reaction if higher dose chosen. Per pt's hx he had ADR reaction to ozempic 1 mg dose. Reviewed nutrition. f/up in October. DIABETES A1c is above goal of <7% - Medication management Diabetes Diabetes Medication Regimen: - INCREASE insulin glargine (Semglee) to 44units bid (and split into two seperate injections); if BG continues to be above 200 - may further increase to 46 units bid - c/t insulin Novolog 25 units TID (B/L/D) --c/t metformin SA * 750 mg in AM --STOP semaglutide at 0.5 mg weekly *pt unable to tolerate 1 mg dose* - START tirzepatide (mounjaro) 2.5 mg weekly () --c/t empagliflozin 25mg daily in AM -eGFR 73ml/min on 09/2024 - Reviewed DC lab results - Monitor for s/sx hypoglycemia and contact clinic if BG consistently <70mg/dL - Healthy dietary and lifestyle modifications encouraged - to cut down on portions and sweets - Repeat A1c: x 3 months HTN: recent BP ; lisinopril ; LEILANI-I/ARB - defer to PCP ASCVD: atorvasatain Microalb: mALB/Cr: 31.8 H mg/G (03/2022) Most 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 If he has any questions, concerns, or changes in current health status he will call [facility] FUTURE APPOINTMENTS: 10/15/2024 08:00 [facility]/SO/PODIATRY/ROSS 10/27/2024 09:30 [facility]/SO/PHARM/PACT 2 11/04/2024 15:00 CWM/NO/VVC/PAIN MD CLINIC 11/18/2024 09:30 SOP-V01 [facility] LIVER MD-02 P 01/20/2025 10:00 CWM/SO/PACT 7 05/03/2025 10:00 NHM/OPTOMETRY/WELSH/ DM type is : T2D Length of Visit: 30 minutes PBM PharmD Pharmacotherapy Rem V12: PHARMACIST INTERVENTIONS: TYPE 2 DIABETES MELLITUS Medication Intervention(s) Adjust dose or frequency of current medication due to other reason Plan: INCREASE DOSE OF INSULIN GLARGINE Discontinue and/or change to different medication Discontinue and/or change to different medication due to other reason Plan: D/C OZEMPIC Initiate new medication Plan: START MOUNJARO Medication monitoring, no dosage change required, continue to monitor and assess /lora/ SHANDA BECK CLINICAL GM[employer] Signed: 10/05/2024 15:32 Receipt Acknowledged By: 10/05/2024 17:53 /lora/ JASMYNE SCHMITZ CERTIFIED NURSE PRACTITIONER SHANDA BECK [facility]
--- OUTSIDE RECORDS SUMMARY | 2024-10-11 11:13 | XMS_ITS | Encounter Summary ---
Author Name [facility] [place] Organization [facility] [place] Address [address] [place] [address] Care Team Providers Care Horse Buyer Name Role Phone CHANI RHODES Primary Care [...] [facility] H[facility] February 03, 2022 [id number] EMERITA BAUTISTA PATIENT [facility] MEDICAID MEDICAID MEDIC AID Oct 06, 2013 MEDICAI D [id number] EMERITA BAUTISTA PATIENT MEDICARE (WNR) MEDICARE (M) PART A Mar 06, 2015 PART A [id number] EMERITA BAUTISTA PATIENT MEDICARE (WNR) MEDICARE (M) PART B Mar 06, 2015 PART B [id number] [phone] EMERITA BAUTISTA PATIENT MEDICARE (WNR) MEDICARE (M) PART B Mar 06, 2015 PART B [id number] [phone] EMERITA BAUTISTA PATIENT MEDICARE (WNR) MEDICARE (M) PART A Mar 06, 2015 PART A [id number] [phone] EMERITA BAUTISTA PATIENT MEDICARE (WNR) MEDICARE (M) PART B Mar 06, 2015 PART B [id number] [phone] EMERITA BAUTISTA PATIENT MEDICARE (WNR) MEDICARE (M) PART B Mar 06, 2015 PART B [id number] [phone] EMERITA BAUTISTA PATIENT MEDICARE (WNR) MEDICARE (M) PART A Mar 06, 2015 PART A [id number] [phone] EMERITA BAUTISTA PATIENT Selected Encounter This section includes the information on record at [place] for the Encounter. Date/Time Encounter Type Encounter Description Reason Pro vider Source Oct 05, 2024 11:31 AM Outpatient Encounter PRIMARY CARE/MEDICINE IHE Encounter Template Text not used by [place] Plan of Treatment: Future Appointments (+ 6 months) and Future Tests (+/- 45 days) The Plan of Treatment section includes future care activities for the patient from all [place] [facility]. This section includes future appointments [...] 27, 2024 09:30 AM [facility] Nov 04, 2024 03:00 PM AMBULATORY - MEDICINE [place] [facility] [place] [facility] Nov 18, 2024 09:30 AM AMBULATORY - NONE [facility] Nov 18, 2024 09:30 AM AMBULATORY - MEDICINE [facility] [place] [facility] Jan 20, 2025 10:00 AM [facility] Active, Pending, and Scheduled Orders This [...] PM Consult Order [facility]ITY [facility] Cons Measuring Machine Operator's Choice [place] Sep 16, 2024 08:39 PM Consult Order HEPATOLOGY SERVICES IF WHAV Cons Measuring Machine Operator's [facility] Sep 21, 2024 12:00 AM Laboratory - Chemistry Order ALCOHOL, ETHYL [facility] [place] [facility] Sep 21, 2024 12:00 AM Laboratory - Chemistry Order AMPHETAMINES SCREEN PANEL UR[facility] [place] [facility] Sep 21, 2024 12:00 AM Laboratory - Chemistry Order FENTANYL SCREEN PANEL UR[facility] Sep 21, 2024 12:00 AM Laboratory - Chemistry Order BENZODIAZEPINES SCREEN PANEL URINE (DRUG) [facility] [place] [facility] Sep 21, 2024 12:00 AM Laboratory - Chemistry Order BUPRENORPHINE SCREEN PANEL UR[facility]UG[facility] [place] [facility] Sep 21, 2024 12:00 AM Laboratory - Chemistry Order CANNABINOIDS SCREEN PANEL UR[facility] [place] [facility] Sep 21, 2024 12:00 AM Laboratory - Chemistry Order COCAINE SCREEN PANEL UR[facility]DRUG[facility] [place] [facility] Sep 21, 2024 12:00 AM Laboratory - Chemistry Order OPIATES SCREEN PANEL URINE [facility]DRUG[facility] [place] [facility] Sep 21, 2024 12:00 AM Laboratory - Chemistry Order OXYCODONE SCREEN PANEL URINE [facility]DRUG[facility] Sep 21, 2024 12:00 AM Laboratory - Chemistry Order METHADONE SCREEN URINE [facility] Lab Results: +/- 30 days of the [...] Range Comment Sep 07, 2024 09:20 AM [place] TSH Specimen Type: SERUM No comment entered. Ordering Provider: CHANI RHODES Report Released Date/Time: Sep 06, 2024 01:20 PM Reporting [facility]: [facility] [address] [address] Performing Lab: [facility] [address] [address] TSH 1.86 u[IU]/mL 0.35-5.00 Sep 07, 2024 09:20 AM [place] PSA Specimen Type: SERUM No comment entered. Ordering Provider: CHANI RHODES Report Released Date/Time: Sep 06, 2024 01:20 PM Reporting Lab: [facility] [address] [address] Performing Lab: [address] [address] PSA 0.33 ng/mL 0.00-4.00 Sep 07, 2024 09:20 AM [place] HEMOGLOBIN A1C PANEL Specimen Type: BLOOD Comment: [...] 06, 2024 01:20 PM Reporting Lab: [address] [address] Performing Lab: [address] [address] HEMOGLOBIN A1C 8.1 H 4.0-5.6 Sep 07, 2024 09:20 AM [place] LIPID PANEL FASTING Specimen Type: SERUM Comment: Hemolysis present analysis cannot be performed. Hemolysis present may falsly elevate Potassium Total and Direct Bili, Iron, AST, %Fe. Ordering Provider: CHANI RHODES Report Released Date/Time: Sep 06, 2024 01:20 PM Reporting Lab: [address] [address] Performing Lab: [address] [place] [address] CHOLESTEROL 131 mg/dL TRIGLYCERIDE 219 mg/dL H 0-150 LDL calculated 55 mg/dL 0-129 CHOL/HDL 4.1 HDL CHOLESTEROL 32 mg/dL L 40-60 Sep 07, 2024 09:20 AM [place] LIVER FUNCTION Specimen Type: SERUM Comment: Hemolysis present analysis cannot be performed. Hemolysis present may falsly elevate Potassium Total and Direct Bili, Iron, AST, %Fe. Ordering Provider: CHANI RHODES Report Released Date/Time: Sep 06, 2024 01:20 PM Reporting Lab: [address] [address] Performing Lab: [address] [address] PROTEIN,TOTAL 7.5 g/dL 6.0-8.3 ALBUMIN 3.9 g/dL 3.5-5.0 ALKALINE PHOSPHATASE 80 U/L 40-150 AST 34 U/L 5-34 ALT 56 U/L H BILIRUBIN, TOTAL comment mg/dL 0.2-1.2 BILIRUBIN, DIRECT comment mg/dL 0-0.5 Sep 07, 2024 09:20 AM [place] BASIC METABOLIC PANEL (fasting) Specime n Type: SERUM Comment: Hemolysis present analysis cannot be performed. Hemolysis present may falsly elevate Potassium Total and Direct Bili, Iron, AST, %Fe. Ordering Provider: CHANI RHODES Report Released Date/Time: Sep 06, 2024 01:20 PM Reporting Lab: [address] [address] Performing Lab: [address] [address] UREA NITROGEN 15 mg/dL 7-25 GLUCOSE 176 mg/dL H 65-100 SODIUM 139 mmol/L 135-145 POTASSIUM 4.4 mmol/L 3.5-5.0 CHLORIDE 104 mmol/L 100-110 CO2 23 meq/L 20-30 CREATININE, Serum 1.15 mg/dL 0.50-1.40 eGFR(CKD-EPI 2020) 73 mL/min >60 Sep 07, 2024 09:20 AM [place] MICROALBUMIN CREATININE RATIO PANEL Spe cimen Type: URINE No comment entered. Ordering Provider: CHANI RHODES Report Released Date/Time: Sep 06, 2024 01:20 PM Reporting Lab: [address] [address] Performing Lab: [address] [address] MICROALBUMIN/C REATININE RATIO 18.2 mg/g 0-29.9 MICROALBUMIN,Q UANTITATIVE 0.9 mg/dL RR UNAVAIL CREATININE URINE 49.56 mg/dL Sep 07, 2024 09:20 AM [place] URINALYSIS Specimen Type: URINE Comment: If Glucose = >500 and Ketones are positive, please alert the Physician. Ordering Provider: CHANI RHODES Report Released Date/Time: Sep 06, 2024 01:20 PM Reporting Lab: [address] [address] Performing Lab: [address] [address] UA COLOR Colorless Yellow UA APPEARANCE Clear Clear UA GLUCOSE >1000 mg/dL Negative UA KETONES NEGATIVE mg/dL Negative UA BLOOD NEGATIVE mg/dL Negative UA PROTEIN NEGATIVE mg/dL Negative UA NITRITE NEGATIVE mg/dL Negative UA BILIRUBIN NEGATIVE mg/dL Negative UA SPECIFIC GRAVITY 1.023 H 1.016-1.022 UA pH 6.0 5.0-9.0 UA UROBILINOGEN Normal mg/dL <2.0 UA LEUKOCYTE NEGATIVE Negative Sep 07, 2024 09:20 AM [place] CBC AND DIFF (AUTO) Specimen Type: BLOOD No comment entered. Ordering Provider: CHANI RHODES Report Released Date/Time: Sep 06, 2024 01:20 PM Reporting Lab: [address] [address] Performing Lab: [address] [address] WBC 5.45 10*3/uL 4.50-11.00 RBC 5.45 10*6/uL [...] 11, 2023 08:30 AM [facility]BACCO [facility] Tobacco Use History This section includes a history of the smoking, or tobacco-related health factors, that were collected on or before the date of the Encounter. The data comes from the [place] facility where the Encounter took place. Date/Time Smoking Status/Tobacco Use Comment F ruben Mar 11, 2023 08:30 AM VA-TOBACCO QUIT 15 YRS OR MORE [place] [facility] [place] [facility] Dec 27, 2020 02:00 PM VA-TOBACCO FORMER USER [place] [facility] [place] [facility] Dec 27, 2020 02:00 PM VA-TOBACCO QUIT 15 YRS OR MORE [place] [facility] [place] [facility] Advance Directives: All historical and current [...] Encounter Note(s) Provider Source Oct 05, 2024 11:31 AM ADMINISTRATIVE NOT E: LOCAL TITLE: ADMINISTRATIVE NOTE STANDARD TITLE: ADMINISTRATIVE NOTE DATE OF NOTE: OCT 05, 2024@11:31 ENTRY DATE: OCT 05, 2024@11:31:15 AUTHOR: JONNIE VIZCAINO COSIGNER: URGENCY: STATUS: COMPLETED WAS SEEN BY CWM/SO/PACT 7 PROVIDER ON 09/16/2024, PLEASE CHANGE CPRS BANNER TO CWM/SO/PACT 7 PROVIDER. /lora/ CLAUDE VIZCAINO [employer] MANAGER Signed: 10/05/2024 11:31 Receipt Acknowledged By: 10/07/2024 15:03 /lora/ CLARA Kessler [facility] Specialist CLAUDE VIZCAINO
== END 2024-10-11 10:29 | disposition home or self-care (01) ==
PROVIDERS: Visit Provider Orthopaedic Surgery
DX: S83.242A Other tear of medial meniscus, current injury, left knee, initial encounter (principal)
CPT/HCPCS: 99213; G2211

== ENCOUNTER → 2024-10-11 10:08 | Outpatient (BNVA) | payer OTHER, SELFPAY | PROVIDERS: Visit Provider Orthopaedic Surgery | DX: S83.242A Other tear of medial meniscus, current injury, left knee, initial encounter (principal) | CPT/HCPCS: 99212 ==

== ENCOUNTER → 2024-10-18 10:04 | Day surgery (SDC) | payer OTHER, SELFPAY ==
--- NOTE | 2024-10-14 14:11 | HO.ANESPROP2 ---
HPI - Anesthesia Eval Consult details Narrative: 59yo M for Left Knee Arthroscopy with partial medial meniscectomy Buprenorphine patch rx'd Anesthesia Pre-Procedure Meds Is the patient on any of the following meds?: GLP1/DPP4 and SGLT2 Inhib PMFSH Active Problems Active Problems: All Active Problems Tear of medial meniscus of left knee (Acute) Right knee pain (Acute) Left knee pain (Acute) Past Medical History Medical History (Updated 10/14/24 @ 14:14 by Lucy Hopkins NP) BMI 32.0-32.9,adult HTN (hypertension) Diabetes Surgical History Surgical History H/O knee surgery Meds Allergies Allergy/AdvReac Type Severity Reaction Status Date / Time No Known Allergies Allergy Verified 10/11/24 10:09 Active Medications: Current Medications Cefazolin Sodium/Dextrose (Ancef) 2 gm in 50 mls @ 100 mls/hr IV PREOP ONE Stop: 10/18/24 06:22 Home Medications ?Medication ?Instructions ?Recorded ?Confirmed ?Last Taken ?Type acetaminophen 325 mg capsule 650 mg PO TID PRN 09/30/24 09/30/24 Unknown History acetaminophen 500 mg capsule 1,000 mg PO TID PRN 09/30/24 10/11/24 Unknown History atorvastatin 80 mg tablet 80 mg PO BEDTIME 09/30/24 10/11/24 Unknown History buprenorphine 10 mcg/hour weekly 1 patch transdermal Q5D 09/30/24 10/11/24 Unknown History transdermal patch buprenorphine 5 mcg/hour weekly 1 patch transdermal Q5D 09/30/24 10/11/24 Unknown History transdermal patch carboxymethylcellulose sodium 0.5 1 drp ophthalmic (eye) QID 09/30/24 10/11/24 Unknown History % eye drops in a dropperette cholecalciferol (vitamin D3) 50 50 mcg PO DAILY 09/30/24 10/11/24 Unknown History mcg (2,000 unit) capsule cyclobenzaprine 10 mg tablet 10 mg PO BID 09/30/24 10/11/24 Unknown History empagliflozin 25 mg tablet 25 mg PO DAILY 09/30/24 10/11/24 Unknown History gabapentin 300 mg capsule 600 mg PO TID 09/30/24 10/11/24 Unknown History hydrocodone 5 mg-acetaminophen 325 1 tab PO BID PRN 09/30/24 10/11/24 Unknown History mg tablet insulin aspart U-100 100 unit/mL 27 unit subcut TID 09/30/24 10/11/24 Unknown History (3 mL) subcutaneous pen (Novolog FlexPen U-100 Insulin aspart) insulin glargine 100 unit/mL (3 46 unit subcut BID 09/30/24 10/11/24 Unknown History mL) subcutaneous pen lidocaine 5 % topical patch 1 patch topical DAILY 09/30/24 10/11/24 Unknown History lisinopril 5 mg tablet 5 mg PO DAILY 09/30/24 10/11/24 Unknown History semaglutide 0.25 mg or 0.5 mg (2 0.5 mg subcut QWEEK 09/30/24 10/11/24 Unknown History mg/3 mL) subcutaneous pen injector Assessment and Plan Assessment Anesthesia Assessment: Chart Reviewed
[2024-10-18 12:09] VITALS: BMI 31.9
[2024-10-18] MEDS: Lactated Ringers 1,000 ML 100 ML IVCONT (12:34)
[2024-10-18 12:38] VITALS: BP 143/91; PULSE 78; RESP 16; TEMP 36.5; O2SAT 96
[2024-10-18 13:13] LABS: Glucose, Whole Blood 158 mg/dL (60-115)
--- NOTE | 2024-10-18 14:02 | PC.NURSE ---
1st encounter with patient. iv removed. patient was cancelled per md alaniz. md alaniz in procedure at this time. patient aware of plan and upset that he wasnt originally told not to take the jardiance and if he was told that he wouldnt of taken it. rife in waiting room per patient.
== END ==
PROVIDERS: Visit Provider Orthopaedic Surgery
PROC: (CPT 29870; principal; 2024-11-15 13:30)
DX: S83.242A Other tear of medial meniscus, current injury, left knee, initial encounter (principal); Z53.8 Procedure and treatment not carried out for other reasons; Z79.85 Long-term (current) use of injectable non-insulin antidiabetic drugs; E11.9 Type 2 diabetes mellitus without complications
CPT/HCPCS: 82947; J0131; J0690

== ENCOUNTER 2024-11-15 05:41 | Day surgery (SDC) | payer OTHER, SELFPAY ==
[2024-11-11 08:58] VITALS: BMI 32.7
--- NOTE | 2024-11-11 13:23 | P.CONAN_ITS ---
Documented by User: Lucy Hopkins NP 11/11/24 13:23 HPI - Anesthesia Eval Consult details Narrative: 59yo M for Left Knee Arthroscopy with partial medial meniscectomy, 11/15/24 Buprenorphine patch Previously cancelled DOS for continuing SGLT2 Anesthesia Pre-Procedure Meds Is the patient on any of the following meds?: GLP1/DPP4 and SGLT2 Inhib PMFSH Active Problems Active Problems: All Active Problems Tear of medial meniscus of left knee (Acute) Right knee pain (Acute) Left knee pain (Acute) Past Medical History Medical History BMI 32.0-32.9,adult HTN (hypertension) Diabetes Surgical History Surgical History History of surgery History of penile implant Hx of appendectomy Hx of cholecystectomy History of foot surgery Hx of arthroscopy of left knee History of total right knee replacement Social History Social History Are you a primary healthcare financial analyst to a significant other at home: No Do you presently have visiting nurse or other home services: No Patient Tobacco Use Status: Former Tobacco user Tobacco use type: Cigarette Use of substances other than those prescribed or required for medical reasons: No Are you DNR?: No Advance Directives: No Advance Directives Information Provided: Yes Recently lost weight without trying: No Nutrition Risks: No Nutritional Risk Poor oral hygiene: No Meds Allergies Allergy/AdvReac Type Severity Reaction Status Date / Time No Known Allergies Allergy Verified 10/18/24 12:03 Home Medications ?Medication ?Instructions ?Recorded ?Confirmed ?Last Taken ?Type acetaminophen 325 mg capsule 650 mg PO TID PRN 09/30/24 09/30/24 Unknown History acetaminophen 500 mg capsule 1,000 mg PO TID PRN 09/30/24 10/11/24 Unknown History atorvastatin 80 mg tablet 80 mg PO BEDTIME 09/30/24 11/11/24 Unknown History buprenorphine 10 mcg/hour weekly 1 patch transdermal Q5D 09/30/24 10/11/24 Unknown History transdermal patch buprenorphine 5 mcg/hour weekly 1 patch transdermal Q5D 09/30/24 10/11/24 Unknown History transdermal patch carboxymethylcellulose sodium 0.5 1 drp ophthalmic (eye) QID 09/30/24 11/11/24 Unknown History % eye drops in a dropperette cholecalciferol (vitamin D3) 50 50 mcg PO DAILY 09/30/24 11/11/24 Unknown History mcg (2,000 unit) capsule cyclobenzaprine 10 mg tablet 10 mg PO BID 09/30/24 11/11/24 Unknown History empagliflozin 25 mg tablet 25 mg PO DAILY 09/30/24 11/11/24 11/09/24 History gabapentin 300 mg capsule 600 mg PO TID 09/30/24 11/11/24 Unknown History hydrocodone 5 mg-acetaminophen 325 1 tab PO BID PRN 09/30/24 10/11/24 Unknown History mg tablet insulin aspart U-100 100 unit/mL 27 unit subcut TID 09/30/24 11/11/24 Unknown History (3 mL) subcutaneous pen (Novolog FlexPen U-100 Insulin aspart) insulin glargine 100 unit/mL (3 44 unit subcut BID 09/30/24 11/11/24 Unknown History mL) subcutaneous pen lidocaine 5 % topical patch 1 patch topical DAILY 09/30/24 11/11/24 Unknown History lisinopril 5 mg tablet 5 mg PO DAILY 09/30/24 11/11/24 Unknown History semaglutide 0.25 mg or 0.5 mg (2 0.5 mg subcut QWEEK 09/30/24 11/11/24 11/05/24 History mg/3 mL) subcutaneous pen injector Exam Height,Weight and Vital Signs: Height 6 ft 5 in Weight 125.191 kg Assessment and Plan Assessment Anesthesia Assessment: Chart Reviewed Documented by User: Opal Fink MD 11/15/24 08:13 HPI - Anesthesia Eval Anesthesia Pre-Procedure Meds If yes to any meds - educate patient: Pt education - increased risk of aspiration and/or euvolemic DKA [facility] Past Medical History Medical History BMI 32.0-32.9,adult HTN (hypertension) Diabetes Family History Family history of problems with anesthesia: No Surgical History Surgical History History of surgery History of penile implant Hx of appendectomy Hx of cholecystectomy History of foot surgery Hx of arthroscopy of left knee History of total right knee replacement History of Problems with Anesthesia: No Social History Social History Are you a primary healthcare financial analyst to a significant other at home: No Do you presently have visiting nurse or other home services: No Patient Tobacco Use Status: Former Tobacco user Tobacco use type: Cigarette Use of substances other than those prescribed or required for medical reasons: No Are you DNR?: No Advance Directives: No Advance Directives Information Provided: Yes Recently lost weight without trying: No Nutrition Risks: No Nutritional Risk Poor oral hygiene: No Meds Allergies Allergy/AdvReac Type Severity Reaction Status Date / Time No Known Allergies Allergy Verified 10/18/24 12:03 Home Medications ?Medication ?Instructions ?Recorded ?Confirmed ?Last Taken ?Type acetaminophen 325 mg capsule 650 mg PO TID PRN 09/30/24 09/30/24 Unknown History acetaminophen 500 mg capsule 1,000 mg PO TID PRN 09/30/24 10/11/24 Unknown History atorvastatin 80 mg tablet 80 mg PO BEDTIME 09/30/24 11/11/24 Unknown History buprenorphine 10 mcg/hour weekly 1 patch transdermal Q5D 09/30/24 10/11/24 Unknown History transdermal patch buprenorphine 5 mcg/hour weekly 1 patch transdermal Q5D 09/30/24 10/11/24 Unknown History transdermal patch carboxymethylcellulose sodium 0.5 1 drp ophthalmic (eye) QID 09/30/24 11/11/24 Unknown History % eye drops in a dropperette cholecalciferol (vitamin D3) 50 50 mcg PO DAILY 09/30/24 11/11/24 Unknown History mcg (2,000 unit) capsule cyclobenzaprine 10 mg tablet 10 mg PO BID 09/30/24 11/11/24 Unknown History empagliflozin 25 mg tablet 25 mg PO DAILY 09/30/24 11/11/2411/09/25 History gabapentin 300 mg capsule 600 mg PO TID 09/30/24 11/11/24 Unknown History hydrocodone 5 mg-acetaminophen 325 1 tab PO BID PRN 09/30/24 10/11/24 Unknown History mg tablet insulin aspart U-100 100 unit/mL 27 unit subcut TID 09/30/24 11/11/24 Unknown History (3 mL) subcutaneous pen (Novolog FlexPen U-100 Insulin aspart) insulin glargine 100 unit/mL (3 44 unit subcut BID 09/30/24 11/11/24 Unknown History mL) subcutaneous pen lidocaine 5 % topical patch 1 patch topical DAILY 09/30/24 11/11/24 Unknown History lisinopril 5 mg tablet 5 mg PO DAILY 09/30/24 11/11/24 Unknown History semaglutide 0.25 mg or 0.5 mg (2 0.5 mg subcut QWEEK 09/30/24 11/11/24 11/05/24 History mg/3 mL) subcutaneous pen injector Exam Airway Mallampati Class: II TM Dist: >3cm Neck ROM: Full Heart: rrr Lungs: cta Assessment and Plan Assessment Anesthesia Assessment: Anesthesia Plan Discussed Final Anesthetic Review Family History of Problems with Anesthesia: No History of Problems with Anesthesia: No NPO: Yes ASA Class: III Final Preanesthetic Review: Meds/Allgs Chart Reviewed, Consent Obtained/Reviewed and Anes Risks/Benef Reviewed Patient Risk: Intermediate Procedure Risk: Low Anesthetic Plan Anesthetic Plan: GA
[2024-11-15] VITALS (15 sets, daily range): BP systolic 136–168; BP diastolic 83–110; PULSE 74–92; RESP 16–20; TEMP 36.2–36.8; O2SAT 93–97; BMI 33.7
--- OUTSIDE RECORDS SUMMARY | 2024-11-15 05:46 | XMS_ITS | Continuity of Care Document ---
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 Name Role Phone Marcelo DUMONT, Leia Wen Primary Care Physician [id number] Date(s): 09/14/24 - 10/20/[address] [address]- Attending Physician: Not on Staff, Attending MD Encounter Type: Pre-OutPatient One Time Allergies, Adverse Reactions, Alerts Substance Criticality Severity Reaction Reaction Severity Status Cats Active Dust Active Immunizations Given and Recorded Vaccine Date Status Refusal Reason influenza virus vaccine, inactivated 09/12/21 Give n influenza virus vaccine, inactivated 06/30/20 Nino rded influenza virus vaccine, inactivated 06/25/19 Nino rded influenza virus vaccine, inactivated 07/21/18 Nino rded influenza virus vaccine, inactivated 10/16/17 Nino rded influenza virus vaccine, inactivated 11/15/15 Nino rded SARS-CoV-2 (COVID-19) mRNA BNT-162b2 vac 12/07/20 Recorded SARS-CoV-2 (COVID-19) mRNA BNT-162b2 vac 11/16/20 Recorded pneumococcal 23-valent vaccine 11/15/15 Recorded Medications acetaminophen 325 mg oral tablet 650 mg, By Mouth, Every 6 hours, Refills 0, Maintenance, 10/15/18 9:09:12 AM EST Start Date: 1/10/19 Status: Ordered Repeat number: 1 atorvastatin 40 mg oral tablet 1 tablet = 40 mg, By Mouth, Daily, 0 Refills, Maintenance Start Date: 09/17/18 Status: Ordered Repeat number: 1 atorvastatin 80 mg oral tablet 1 tablet = 80 mg, By Mouth, Daily, # 30 tablet, 5 Refills, Maintenance, 04/16/24 8:37:00 AM EDT, Tablet, Partial fill upon patient request if the prescription is for a schedule II opioid drug. Start Date: 04/16/24 Status: Ordered Quantity: 30.0 Unit: tablet Repeat number: 6 buprenorphine 5 mcg/hr transdermal film, extended release 1 patch, Topically, Daily, # 1 patch, 0 Refills, Maintenance, 04/16/24 8:38:00 AM EDT, Partial fill upon patient request if the prescription is for a schedule II opioid drug. Start Date: 04/16/24 Status: Ordered Quantity: 1.0 Unit: patch Repeat number: 1 cetirizine 10 mg oral tablet 1 tablet = 10 mg, By Mouth, Daily, # 30 tablet, 6 Refills, Maintenance, 04/14/24 5:16:00 PM EDT, Tablet, [facility], Partial fill upon patient request if the prescription is for a schedule II opioid drug., 197, cm, 04/14/24 16:49:00 EDT, Height, 129, kg, 05/09/23 8:55:00 EDT, Dry Weight Start Date: 04/14/24 Status: Ordered Quantity: 30.0 Unit: tablet Repeat number: 7 cholecalciferol 2000 intl units oral capsule 1 capsule = 50 mcg, By Mouth, Daily, # 30 capsule, 0 Refills, Maintenance, 04/16/24 8:38:00 AM EDT, Capsule, Partial fill upon patient request if the prescription is for a schedule II opioid drug. Start Date: 04/16/24 Status: Ordered Quantity: 30.0 Unit: capsule Repeat number: 1 diclofenac 1% topical gel 1 application, Topically, 4 times a day, # 100 Gm, 0 Refills, Maintenance, 04/16/24 8:38:00 AM EDT, Gel, Partial fill upon patient request if the prescription is for a schedule II opioid drug. Start Date: 04/16/24 Status: Ordered Quantity: 100.0 Unit: g Repeat number: 1 Docusate/Senna Tablet 1 tablet, By Mouth, 2 times a day, PRN Constipation, 0 Refills, Maintenance, 09/12/21 7:22:00 AM EST, Tablet, Partial fill upon patient request if the prescription is for a schedule II opioid drug. Start Date: 09/12/21 Status: Ordered Repeat number: 1 empagliflozin 25 mg oral tablet 1 tablet = 25 mg, By Mouth, Daily in AM, # 30 tablet, 0 Refills, Maintenance, 04/16/24 8:38:00 AM EDT, Tablet, Partial fill upon patient request if the prescription is for a schedule II opioid drug. Start Date: 04/16/24 Status: Ordered Quantity: 30.0 Unit: tablet Repeat number: 1 fluticasone 50 mcg/inh nasal spray 1 sprays = 50 mcg, Nares, Both, Daily in AM, # 1 each, 6 Refills, Maintenance, 04/14/24 5:16:00 PM EDT, [place], [facility], Partial fill upon patient request if the prescription is for a schedule II opioid drug., 1 sprays Nares, Both Daily in AM, 197, cm, 04/14/24 16:49:00 EDT, Height, 129, kg, 05/09/23 8:55:00 EDT, Dry Weight Start Date: 04/14/24 Status: Ordered Quantity: 1.0 Unit: each Repeat number: 7 gabapentin 100 mg oral capsule 100 mg, 1, capsule, By Mouth, 3 times a day, # 90 capsule, Refills 5, Tot. Refills 5, Maintenance, 04/16/24 8:39:00 AM EDT, Do Not Route, Partial fill upon patient request if the prescription is for aschedule II opioid drug. Start Date: 04/16/24 Status: Ordered Quantity: 90.0 Unit: capsule Repeat number: 6 Insulin Aspart FlexPen 100 units/mL injectable solution = 25 units, Subcutaneous Infusion, 3 times a day before meals, # 15 mL, 0 Refills, Maintenance, 04/16/24 8:40:00 AM EDT, Partial fill upon patient request if the prescription is for a schedule II opioid drug. Start Date: 04/16/24 Status: Ordered Quantity: 15.0 Unit: mL Repeat number: 1 insulin detemir 100 units/mL subcutaneous solution = 80 units, Subcutaneous Injection, Daily at bedtime, 0 Refills, Maintenance, 10/15/18 9:08:58 AM EST, Injection Start Date: 10/15/18 Status: Ordered Repeat number: 1 insulin glargine 100 units/mL subcutaneous solution = 20 units, Subcutaneous Injection, Daily, # 10 mL, 0 Refills, Maintenance, 04/16/24 8:40:00 AM EDT,Solution, Partial fill upon patient request if the prescription is for a schedule II opioid drug. Start Date: 04/16/24 Status: Ordered Quantity: 10.0 Unit: mL Repeat number: 1 lisinopril 2.5 mg oral tablet 1 tablet = 2.5 mg, By Mouth, Daily, # 30 tablet, 0 Refills, Maintenance, 02/24/13 1:05:13 PM EDT, Tablet Start Date: 02/24/13 Status: Ordered Quantity: 30.0 Unit: tablet Repeat number: 1 lisinopril 5 mg oral tablet 5 mg, 1, tablet, By Mouth, Daily, # 30 tablet, Refills 0, Tot. Refills 0, Maintenance, 04/16/24 8:41:00 AM EDT, Do Not Route, Partial fill upon patient request if the prescription is for a schedule IIopioid drug. Start Date: 04/16/24 Status: Ordered Quantity: 30.0 Unit: tablet Repeat number: 1 metFORMIN 500 mg oral tablet 1 tablet = 500 mg, By Mouth, 2 times a day, 0 Refills, Maintenance, 09/17/18 9:56:34 AM EST Start Date: 09/17/18 Status: Ordered Repeat number: 1 metFORMIN 750 mg oral tablet, extended release 1 tablet = 750 mg, By Mouth, Daily, # 30 tablet, 0 Refills, Maintenance, 04/16/24 8:41:00 AM EDT, ERTablet, Partial fill upon patient request if the prescription is for a schedule II opioid drug. Start Date: 04/16/24 Status: Ordered Quantity: 30.0 Unit: tablet Repeat number: 1 NovoLog FlexPen 100 units/mL subcutaneous solution 40 units, Subcutaneous Infusion, 3 times a day before meals, 0 Refills, Maintenance, 02/24/13 1:13:36 PM EDT Start Date: 02/24/13 Status: Ordered Repeat number: 1 Vitamin B6 100 mg oral tablet 1 tablet = 100 mg, By Mouth, Daily, 0 Refills, Maintenance, 09/17/18 9:57:08 AM EST Start Date: 09/17/18 Status: Ordered Repeat number: 1 Problem List Condition Confirmation Course Effective Dates Status H ealth Status Informant Benign essential HTN Confirmed Active Acute pain of left hip Confirmed Active Obese class I Confirmed Active Bilateral primary osteoarthritis of knee Confirmed Active Seasonal allergies Confirmed Active T2DM (type 2 diabetes mellitus) Confirmed Active Social History Social History Type Response Smoking Status Never (less than 100 in lifetime) entered on: 10/03/21 Sex Sex Representation Male (finding) Patient Care team information Care Team Personnel Name: Marcelo DUMONT, Leia Wen Position: [facility] PCO Associate Professional Member Role: PCP Address: [address] [place] [address] Telecom: Name: Tamera Waldron RN Position: [facility] RN Member Role: Primary Care Nurse Care Team Related Persons Name: LUZMARIA BAUTISTA Insurance Providers Guarantor name: EMERITA BAUTISTA Health Plan Information #: 1 Payer: SELF PAY INSURANCE Member Number: NA Policy Number: NA Group Number: NA Health Plan Information #: 2 Payer: SELF PAY INSURANCE Member Number: NA Policy Number: NA Group Number: NA
--- OUTSIDE RECORDS SUMMARY | 2024-11-15 05:46 | XMS_ITS | Clinical Summary ---
Author Organization [facility] Address [address] [place] [address] Care Team Providers Care Authorizer Name Role Phone Unavailable Primary Care Provider Unavailabl e Social History Tobacco Use Types Packs/Day Years Used Date Smoking Tobacco: Never Assessed Sex and Gender Information Value Date Recorded Sex Assigned at Not on file Legal Sex Male 11:50 PM EST Gender Identity Not on file Sexual Orientation Not on file Plan of Treatment Health Maintenance Due Date Last Done Comments DTaP,Tdap,and Td Vaccines (1 - Tdap) 1983 Zoster Vaccines (1 of 2) 2014 Cholesterol Screening (Lipid Panel) 11/04/2023 Colorectal Cancer Screening: Colonoscopy 11/04/2023 Depression Screening 11/04/2023 HIV Screening 11/04/2023 Hepatitis C Screening 11/04/2023 Social Influencers of Health Screening 11/04/2023 COVID-19 Vaccine ( - 2023-2 5 season) 2024 Influenza Vaccine (#1) 2024 RSV Immunization Patients 60 + Years Old (1 - 1-dose 75+ series) 2039 HIB Vaccines Aged Out No longer eligi ble based on patient's age to complete this topic HPV Vaccines Aged Out No longer eligi ble based on patient's age to complete this topic Hepatitis A Vaccines Aged Out No long er eligible based on patient's age to complete this topic Hepatitis B Vaccines Aged Out No long er eligible based on patient's age to complete this topic IPV Vaccines Aged Out No longer eligi ble based on patient's age to complete this topic MMR Vaccines Aged Out No longer eligi ble based on patient's age to complete this topic Meningococcal ACWY Vaccine Aged Out N o longer eligible based on patient's age to complete this topic Pneumococcal Vaccine: Pediat rics (0 to 5 Years) and At-Risk Patients (6 to 64 Years) Aged Out No longer eligible b ased on patient's age to complete this topic RSV Immunization Patients Un lesley 20 months Aged Out No longer eligible b ased on patient's age to complete this topic Varicella Vaccines Aged Out No longer eligible based on patient's age to complete this topic
--- OUTSIDE RECORDS SUMMARY | 2024-11-15 05:46 | XMS_ITS | Encounter Summary ---
Author Name [facility] [place] Organization [facility] [place] [facility] [place] Address [address] [place] [address] Care Team Providers Care Aircraft Time Clerk Name Role Phone CHANI RHODES Primary [...] to Policy Zayas [employer] D[employer] DENTAL INSURANCE [facility] February 03, 2022 [id number] EMERITA BAUTISTA PATIENT [facility] MEDICAID MEDICAID MEDIC AID Oct 06, 2013 MEDICAI D [id number] EMERITA BAUTISTA PATIENT MEDICARE (WNR) MEDICARE (M) PART A Mar 06, 2015 PART A [id number] [phone] EMERITA BAUTISTA PATIENT MEDICARE (WNR) MEDICARE (M) PART B Mar 06, 2015 PART B [id number] EMERITA BAUTISTA PATIENT MEDICARE (WNR) MEDICARE (M) PART B Mar 06, 2015 PART B [id number] EMERITA BAUTISTA PATIENT MEDICARE (WNR) MEDICARE (M) PART A Mar 06, 2015 PART A [id number] EMERITA BAUTISTA PATIENT MEDICARE (WNR) MEDICARE (M) PART B Mar 06, 2015 PART B [id number] EMERITA BAUTISTA PATIENT MEDICARE (WNR) MEDICARE (M) PART B Mar 06, 2015 PART B [id number] EMERITA BAUTISTA PATIENT MEDICARE (WNR) MEDICARE (M) PART A Mar 06, 2015 PART A [id number] EMERITA BAUTISTA PATIENT Selected Encounter This section includes the information on record at [place] for the Encounter. Date/Time Encounter Type Encounter Description Reason Provider Source Oct 15, 2024 08:00 AM OFFICE O/P EST LOW 20 MIN PODIATRY ICD-10-CM L60.3 Nail dystrophy YOSEF CASANOVA Behzad Encounter Template Text not used by [place] Assessments - Encounter Diagnoses This section includes the primary and secondary diagnoses documented for the Encounter. Date/Time Primary/Secondary Diagnosis Diagnosis Name Provider Source Oct 15, 2024 08:29 AM PRIMARY Nail dystrophy YOSEF CASANOVA [facility] Oct 15, 2024 08:29 AM SECONDARY Corns and callosities YOSEF CASANOVA [facility] Oct 15, 2024 08:29 AM SECONDARY Type 2 diabetes w diabetic peripheral angiopath w/o gangrene YOSEF CASANOVA NILS Oct 15, 2024 08:29 AM SECONDARY Type 2 diabetes w oth diabetic neurological complication YOSEF CASANOVAFIELD Plan of Treatment: Future Appointments (+ 6 months) and Future Tests (+/- 45 days) The Plan of Treatment section includes future care activities for the patient from all [place] treatmentfacilities. This section includes future appointments and future orders which are active, pending or scheduled. Future Appointments This section includes appointments that were scheduled to occur 6 months from the date of the Encounter, up to a maximum of 20 appointments. The data comes from all [place] treatment facilities. Appointment Date/Time Appointment Type Appointme nt Facility Name Oct 27, 2024 09:30 AM AM[facility]UL[facility]ORY [facility]INE [facility] Nov 04, 2024 03:00 PM AMBULATORY - MEDICINE [facility] Nov 18, 2024 09:30 AM AMBULATORY - NONE [place] Nov 18, 2024 09:30 AM [facility] - [facility]IC[facility] [place] [facility] Nov 26, 2024 09:00 AM [facility] Dec 29, 2024 10:45 AM [facility]UL[facility]ORY [facility] [place] Jan 20, 2025 10:00 AM AMBULATORY - MEDICINE [place] February 04, 2025 08:00 AM AMBULATORY - MEDICINE [place] Active, [...] Date/Time Test Type Test Details Facility Name Sep 16, 2024 08:39 PM Consult [facility] [employer] [facility] Sep 21, 2024 12:00 AM Laboratory - Chemistry Order AMPHETAMINES SCREEN PANEL URINE (DRUG) SP [facility] [place] Sep 21, 2024 12:00 AM Laboratory - Chemistry Order ALCOHOL, ETHYL URINE PANEL URINE (DRUG) SP [facility] [place] Sep 21, 2024 12:00 AM Laboratory - Chemistry Order FENTANYL SCREEN PANEL URINE (DRUG) SP [facility] [place] Sep 21, 2024 12:00 AM Laboratory - Chemistry Order BENZODIAZEPINES SCREEN PANEL URINE (DRUG) SP [facility] [place] [facility] Sep 21, 2024 12:00 AM Laboratory - Chemistry Order BUPRENORPHINE SCREEN PANEL URINE (DRUG) SP [facility] [place] Sep 21, 2024 12:00 AM Laboratory - Chemistry Order CANNABINOIDS SCREEN PANEL URINE (DRUG) SP [facility] [place] [facility] Sep 21, 2024 12:00 AM Laboratory - Chemistry Order COCAINE SCREEN PANEL URINE (DRUG) SP [facility] [place] [facility] Sep 21, 2024 12:00 AM Laboratory - Chemistry Order METHADONE SCREEN URINE SP [facility] [place] [facility] Sep 21, 2024 12:00 AM Laboratory - Chemistry Order OPIATES SCREEN PANEL URINE (DRUG) SP [facility] [place] [facility] Sep 21, 2024 12:00 AM Laboratory - Chemistry Order OXYCODONE SCREEN PANEL URINE (DRUG) [facility] Social History: Smoking Status (Most current) [...] ity Mar 08, 2024 09:00 AM VA-TOBACCO QUIT 15 YRS OR MORE [facility] Tobacco Use History This section includes a history of the smoking, or tobacco-related health factors, that were collected on or before the date of the Encounter. The data comes from the [place] facility where the Encounter took place. Date/Time Smoking Status/Tobacco Use Comment F acility Mar 08, 2024 09:00 AM VA-TOBACCO QUIT 15 YRS OR MORE [facility] Mar 27, 2022 09:30 AM VA-TOBACCO FORMER USER [facility] Mar 27, 2022 09:30 AM VA-TOBACCO QUIT 15 YRS OR MORE [facility] Dec 22, 2018 10:29 AM VA-TOBACCO FORMER USER [facility] Dec 22, 2018 10:29 AM VA-TOBACCO QUIT 15 YRS OR MORE [facility] Mar 19, 2018 11:33 AM VA-TOBACCO FORMER USER [facility] Mar 19, 2018 11:33 AM VA-TOBACCO QUIT 15 YRS OR MORE [facility] May 13, 2017 01:22 PM QUIT TOBACCO USE > 7 YEARS AGO quit 24 yrs ago [facility] Nov 15, 2015 09:48 AM QUIT TOBACCO USE > 7 YEARS AGO States he last smoked 21 years ago [facility] Dec 07, 2009 02:51 PM QUIT TOBACCO USE > 7 YEARS AGO [facility] Advance Directives: All historical and current Section Date Range: From patient's date of to the date document was created. This section includes ALL of a patient's completed or amended [place] Advance and Rescinded Directives. The entries below indicate that a directive exists for the patient, but an actual copy is not included with this document. The data comes from all [facility]. Date Advance Directives Provider Source May 23, 2011 ADVANCE DIRECTIVE JUD BROOKS Encounter Notes: All associated encounter notes This section contains the clinical notes associated to the Encounter. Date/Time Encounter Note(s) Provider Source Oct 15, 2024 07:24 AM PODIATRY NOTE: LOCAL TITLE: PODIATRY NOTE STANDARD TITLE: PODIATRY NOTE DATE OF NOTE: OCT 15, 2024@07:24 ENTRY DATE: OCT 15, 2024@07:24:09 AUTHOR: YOSEF CASANOVA COSIGNER: URGENCY: STATUS: COMPLETED Is [facility] interested in receiving the COVID-19 vaccine as it becomes available? [facility] received initial Covid-19 vaccine 04/30/2022 LAST SEEN FOR TREATMENT: 05/06/2022 S: Pt. is a 59 yo alert WDWN MALE who is seen for continued podiatric care of painful, thickened, severely incurvated, discolored nails. There has been pain for several days which is intermittent with periods of exacerbation & remission, is of an aching throbbing nature and is exacerbated with shoes & increased activity. Pain level is 2-3/10 for several days prior to treatment & 0/10 after. There is no history of trauma. There have been no recent changes in the patient's medical condition or medications upon questioning today. Pt. is at risk of injury with self-care due to the presence of TYPE II DM. *NOTE: DENIES TOBACCO DENIES ANY RECENT CHANGES IN MEDS- SEE RECONCILIATION PERFORMED THIS DATE BELOW O: Exam reveals skin color to be WNL, temp, is diminished, text has areas of dryness plantar aspect of feet and heels bilat. There is absence of hair noted. Nails are thickened, discolored and display crumbling, flakiness and sub-ungual debris with rubor in the medial & lateral nail grooves and pain on palpation. Affected nails are as follows: 1-2-3-4-5 bilateral. There are hyperkeratosis noted at this time PLANTAR 5TH LT MPJ WITH RUBOR AT THE PERIPHERY AND PAIN ON PALPATION. There are no other gross LE changes in status noted this date. There is minimal fatty tissue plantar fore foot bilateral with mild pain on palpation. PMH: Active problems - Computerized Problem List is the source for the followin. Back pain 2. History of cholecystectomy 3. H/O: osteoarthritis 4. Depression 5. Onychomycosis of toenails 6. Knee pain (SNOMED CT 0440684341) 7. Osteoarthritis 8. Foot pain 9. Diabetic neuropathy 10. Erectile dysfunction 11. Type 2 diabetes mellitus 12. Flat Feet * 13. Depressive disorder (SNOMED CT 49729136) 14. History of male erectile disorder (SNOMED CT 846009341) 15. Disorder of urethra 16. PCP: Gm: [phone] 17. Knee: arthralgia 18. Ankle: arthralgia 19. Appendectomy When Done for Indicated Purpose at Time of Other Major Procedur 20. Hearing loss 21. 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 Obstructive sleep apnoea of adult 2. Long-term current use of opiate analgesic drug 3. Obesity 4. Osteoarthritis of multiple joints 5. Degeneration of lumbar intervertebral disc 6. Cervical radiculopathy 7. HTN - Hypertension ([facility] [id number]) 8. Allergic Rhinitis ([facility] [id number]) 9. Vitamin D Deficiency ([facility] [id number]) 10. Hyperlipidemia ([facility] [id number]) 11. Fatty liver 12. Depression 13. History of surgery 14. Diabetic neuropathy 15. Erectile dysfunction 16. Type 2 diabetes mellitus 17. Under care of multiple providers 18. Bilateral hearing loss 19. Bilateral tinnitusActive problems - Computerized Problem List is the source for the following: NOTE: REVIEWED ABOVE NOTING NO CHANGES SINCE PREVIOUS VISIT: *NOTE: NON-CONTRIBUTORY TO THE CC OTHER THAN THE PRESENCE OF TYPE II DM WITH NEUROPATHY *NOTE: A1c= 8.1 (LAST TAKEN: 09/2024) NJ=889 RISK-=2 HEIGHT: 77 in [195.6 cm] (05/13/2017 13:28) WEIGHT: 288.5 lb [131.1 kg] (05/13/2017 13:28) VASCULAR: DP & PT pulses to be absent non-palpable bilateral. CFT <3 sec x 10. There is no edema and there are no varices-superficial noted. MUSCULAR: Exam reveals muscle strength and tone to be equal & symmetrical bilaterally & WNL/diminished for an individual of this age and present physical- medical condition. There is pain free ROM at all joints distal to and including the ankle. NEUROLOGICAL: Exam reveals S/D, vibratory, light touch & proprioception sensations to be equal & symmetrical bilaterally & WNL/diminished for an individual of this age and present physical-medical status. Protective sensation utilizing a Erskine-Megan lOg monofilament is 10/10 bilateral. ABOVE Exams are reviewed and noted to be unchanged since previous visit & determined to be non-contributory to the cc . Patient requires a cane for ambulation and stability. A: Clinical Impression: Painful onychocryptic dystrophic nails as noted above & hyperkeratois in the presence of DM-PVD. P: Treatment consists of debridement-reduction of all nails via manual and electric means with excision of offending nail borders and thinning of nail plates to the point of immanent bleeding & PARING-DEBRIDEMENT OF HYPERKERATOSIS PLANTAR 5TH LT MPJ. Applied ammonium lactate 12% lotion to dry skin. All care rendered without complications & pt. progressing well after podiatric care this date & will be scheduled for periodic care in an attempt to prevent future complications due to the underlying medical conditions. Tx. By a non- professional could be extremely hazardous to the patient's well-being due to the underlying medical condition. RTC 20 WEEKS(02/04 @ 8AM) *DISCUSSED NEW PROTOCOLS AND CALLED [facility] FOR RESCHEDULING TODAY I DISCUSSED THE FINDINGS & PLAN WITH PATIENT (UNCHANGED SINCE PREVIOUS VISIT) & PATIENT AGREES AND UNDERSTANDS PLAN *NOTE: PATIENT HAS DM/PVD/NEUROPATHY AND IS UNABLE TO VISUALIZE PLANTAR FEET AND WOULD BENEFIT GREATLY FROM THE USE OF A LONG HANDLED [id number] TODAY DISCUSSED HIS 2 SONS AND DAUGHTER DOING VERY WELL IN SCHOOL AND AT WORK. ALSO DISUSSED TH EPOSSIBILITY OF TOTAL NAIL AVULSION RT HALLUX IF UNABLE TO KEEP TIMELY VISITS AND SUMMER WOULD BE THE BEST TIME TO PERFORM IF DESIRED. Medication Reconciliation: PERFORMED TODAY - SEE BELOW. Outpatient: Has the patient been taking medications [...] JLV. Allergies/ADRs (Tool #5) FACILITY ALLERGY/ADR -------- [facility] No Known Allergies [facility] NO KNOWN ALLERGIES [facility] (Tool #1) INCLUDED IN THIS LIST: Alphabetical list of active outpatient prescriptions dispensed from this [place] (local) and dispensed from another [place] or [facility] facility (remote) as well as inpatient [...] the patient into personal health records (i.e. [employer]) are NOT included in this list. Non-VA medications documented outside this [place], remote inpatient orders (regardless of status) and remote clinic medications are NOT included in this list. The patient and provider must always discuss medications the patient is taking, regardless of where the medication was dispensed or obtained. OUTPT ACETAMINOPHEN 325MG TAB (Status = Active) TAKE TWO TABLETS BY MOUTH THREE TIMES DAILY NEEDED FOR PAIN Rx# [id number] Last Released: 08/19/24 Qty/Days Supply: Rx Expiration Date: 08/20/25 Refills Remainin Indication: FOR PAIN OUTPT ACETAMINOPHEN 500MG TAB (Status = Active) TAKE TWO TABLETS BY MOUTH THREE TIMES DAILY NEEDED FOR PAIN Rx# [id number] Last Released: 07/05/24 Qty/Days Supply: Rx Expiration Date: 11/28/24 Refills Remainin OUTPT AMOXICILLIN 500/CLAV K 125MG TAB (Status = ) TAKE 1 TABLET BY MOUTH EVERY 12 HOURS WITH FOOD, FOR 10 DAYS Rx# [id number] Last Released: 07/06/24 Qty/Days Supply: 25/07 Rx Expiration Date: 08/05/24 Refills Remainin OUTPT ATORVASTATIN CALCIUM 80MG TAB (Status = Active) TAKE ONE TABLET BY MOUTH AT BEDTIME FOR HIGH CHOLESTEROL Rx# [id number] Last Released: 07/05/24 Qty/Days Supply: 90 Rx Expiration Date: 11/28/24 Refills Remainin Indication: FOR HIGH CHOLESTEROL OUTPT BUPRENORPHINE 10MCG/HR PATCH (Status = Discontinued) APPLY 1 PATCH TO SKIN EVERY 5 DAYS (REMOVE PATCH BEFORE APPLYING A NEW PATCH) Rx# [id number] Last Released: 08/27/24 Qty/Days Supply: 04/04 Rx Expiration Date: 02/27/25 Refills Remainin Indication: FOR SEVERE CHRONIC PAIN OUTPT BUPRENORPHINE 15MCG/HR PATCH (Status = Active) APPLY 1 PATCH TO SKIN EVERY 5 DAYS (REMOVE PATCH BEFORE APPLYING A NEW PATCH) Rx# [id number] Last Released: 09/27/24 Qty/Days Supply: 04/04 Rx Expiration Date: 03/27/25 Refills Remainin Indication: FOR SEVERE CHRONIC PAIN OUTPT BUPRENORPHINE 5MCG/HR PATCH (Status = Discontinued) APPLY 1 PATCH TO SKIN EVERY 5 DAYS (REMOVE PATCH BEFORE APPLYING A NEW PATCH) Rx# [id number] Last Released: 03/25/24 Qty/Days Supply: 04/04 Rx Expiration Date: 09/22/24 Refills Remainin Indication: FOR SEVERE CHRONIC PAIN OUTPT CARBOXYMETHYLCELLULOSE NA 0.5% OPH SOLN (Status = Active) INSTILL 1 DROP INTO EACH EYE FOUR TIMES A DAY FOR DRY EYE Rx# [id number] Last Released: 05/05/24 Qty/Days Supply: 45 Rx Expiration Date: 05/01/25 Refills Remainin Indication: FOR DRY EYE OUTPT CHOLECALCIF 50MCG (D3-2,000UNIT) TAB (Status = Active) TAKE ONE TABLET BY MOUTH ONCE DAILY FOR VITAMIN SUPPLEMENTATION Rx# [id number] Last Released: 10/04/24 Qty/Days Supply: 100 Rx Expiration Date: 12/15/24 Refills Remainin Indication: FOR VITAMIN D DEFICIENCY OUTPT CYCLOBENZAPRINE HCL 10MG TAB (Status = Discontinued) TAKE ONE TABLET BY MOUTH TWICE DAILY NEEDED FOR MUSCLE SPASM Rx# [id number] Last Released: 08/19/24 Qty/Days Supply: 60 Rx Expiration Date: 08/20/25 Refills Remainin Indication: FOR MUSCLE SPASM OUTPT EMPAGLIFLOZIN 25MG TAB (Status = Discontinued) TAKE ONE TABLET BY MOUTH ONCE DAILY Rx# [id number] Last Released: 04/21/24 Qty/Days Supply: 90 Rx Expiration Date: 10/17/24 Refills Remainin Indication: FOR TYPE 2 DIABETES MELLITUS OUTPT EMPAGLIFLOZIN 25MG TAB (Status = Active) TAKE ONE TABLET BY MOUTH ONCE DAILY Rx# [id number] Last Released: 09/11/24 Qty/Days Supply: Rx Expiration Date: 09/07/25 Refills Remainin Indication: FOR TYPE 2 DIABETES MELLITUS OUTPT GABAPENTIN 300MG CAP (Status = Discontinued) TAKE ONE CAPSULE BY MOUTH THREE TIMES A DAY FOR NERVE PAIN Rx# [id number] Last Released: 08/18/24 Qty/Days Supply: 270 Rx Expiration Date: 08/13/25 Refills Remainin Indication: FOR NERVE PAIN OUTPT GABAPENTIN 300MG CAP (Status = Active) TAKE TWO CAPSULES BY MOUTH THREE TIMES A DAY Rx# [id number] Last Released: 10/08/24 Qty/Days Supply: 540 Rx Expiration Date: 08/28/25 Refills Remainin Indication: FOR NERVE PAIN OUTPT GLUCOSE 4GM CHEW TAB (Status = Active) CHEW FOUR TABLETS BY MOUTH NEEDED FOR LOW BLOOD SUGAR Rx# [id number] Last Released: 06/10/24 Qty/Days Supply: Rx Expiration Date: 06/11/25 Refills Remainin Indication: FOR LOW BLOOD SUGAR OUTPT HYDROCODONE 5MG/ACETAMINOPHEN 325MG TAB (Status = ) TAKE 1 TABLET BY MOUTH TWICE DAILY NEEDED FOR PAIN Rx# [id number] Last Released: 08/27/24 Qty/Days Supply: Rx Expiration Date: 09/26/24 Refills Remainin Indication: FOR PAIN OUTPT HYDROCODONE 5MG/ACETAMINOPHEN 325MG TAB (Status = Active) TAKE 1 TABLET BY MOUTH TWICE DAILY NEEDED NEXT FILL 10/25 Rx# [id number] Last Released: 09/27/24 Qty/Days Supply: Rx Expiration Date: 10/24/24 Refills Remainin Indication: FOR PAIN OUTPT INSULIN,ASPART(EQV-NOVLG)100UN/ML FLXPEN (Status = Active) INJECT 27 UNITS SUBCUTANEOUSLY THREE TIMES A DAY BEFORE MEALS INJECT 15 MINUTES BEFORE MEALS IF MEAL SKIPPED SKIP THE DOSE Rx# [id number] Last Released: 09/06/24 Qty/Days Supply: 08/04 Rx Expiration Date: 06/11/25 Refills Remainin Indication: FOR DIABETES OUTPT INSULIN,GLARGINE-YFGN 100UNIT/ML PEN 3ML (Status = Active) INJECT 46 UNITS SUBCUTANEOUSLY TWICE DAILY Rx# [id number] Last Released: 09/06/24 Qty/Days Supply: 08/04 Rx Expiration Date: 02/26/25 Refills Remainin Indication: FOR DIABETES OUTPT LIDOCAINE 5% PATCH (Status = Active) APPLY 1 PATCH TOPICALLY ONCE DAILY NEEDED (LEAVE PATCH ON FOR 12 HOURS, THEN REMOVE PATCH) Rx# [id number] Last Released: 05/31/24 Qty/Days Supply: Rx Expiration Date: 11/28/24 Refills Remainin Indication: BACK PAIN OUTPT LISINOPRIL 5MG TAB (Status = Active) TAKE ONE TABLET BY MOUTH ONCE DAILY TO CONTROL BLOOD PRESSURE Rx# [id number] Last Released: 09/06/24 Qty/Days Supply: 90 Rx Expiration Date: 06/04/25 Refills Remainin OUTPT METFORMIN HCL 750MG 24HR SA TAB (Status = Active) TAKE ONE TABLET BY MOUTH ONCE DAILY Rx# [id number] Last Released: 02/26/24 Qty/Days Supply: Rx Expiration Date: 02/26/25 Refills Remainin Indication: FOR TYPE 2 DIABETES MELLITUS OUTPT SEMAGLUTIDE 0.25MG/0.375ML INJ PEN 3ML (Status = Discontinued) INJECT 0.5MG SUBCUTANEOUSLY ONCE A WEEK FOR TYPE 2 DIABETES MELLITUS Rx# [id number] Last Released: 06/10/24 Qty/Days Supply: 11/02 Rx Expiration Date: 04/15/25 Refills Remainin Indication: FOR TYPE 2 DIABETES MELLITUS OUTPT SEMAGLUTIDE 0.25MG/0.375ML INJ PEN 3ML (Status = Discontinued) INJECT 0.5MG SUBCUTANEOUSLY ONCE A WEEK FOR TYPE 2 DIABETES MELLITUS Rx# [id number] Last Released: 08/05/24 Qty/Days Supply: 11/02 Rx Expiration Date: 08/06/25 Refills Remainin Indication: FOR TYPE 2 DIABETES MELLITUS OUTPT TIRZEPATIDE 2.5MG/0.5ML INJ,SOLN PACK,4 (Status = Active) INJECT 2.5MG/0.5ML SUBCUTANEOUSLY WEEKLY Rx# [id number] Last Released: 10/07/24 Qty/Days Supply: 11/02 Rx Expiration Date: 10/06/25 Refills Remainin Indication: DIABETES SUPPLIES OUTPT GLUCOSE SENSOR DEXCOM G7 (Status = Discontinued) USE 1 SENSOR DIRECTED EVERY 10 DAYS Rx# [id number] Last Released: 10/04/24 Qty/Days Supply: Rx Expiration Date: 12/11/24 Refills Remainin OUTPT GLUCOSE SENSOR DEXCOM G7 (Status = Active/Suspended) USE 1 SENSOR DIRECTED EVERY 10 DAYS Rx# [id number] Last Released: Qty/Days Supply: Rx Expiration Date: 10/06/25 Refills Remainin // YOSEF CASANOVA DPM [employer] Signed: 10/15/2024 08:30 YOSEF CASANOVA
--- OUTSIDE RECORDS SUMMARY | 2024-11-15 05:46 | XMS_ITS | Continuity of Care Document ---
Author Organization [facility] Address [address] [place] [id number]- Care Team Providers Care Sole Buffer Name Role Phone Marcelo DUMONT, Leia Wen Primary Care Physician Encounter [facility] [id number] Date(s): 09/14/24 - 10/20/[address] [address]- Attending Physician: Not on Staff, Attending MD [...] Refills, Maintenance, 04/14/24 5:16:00 PM EDT, Tablet, [facility], Partial fill upon patient [...] 6 Refills, Maintenance, 04/14/24 5:16:00 PM EDT, North, [facility], Partial fill upon patient [...] Personnel Name: Marcelo DUMONT, Leia Wen Position: [facility] PCO Associate Professional Member Role: PCP Address: [address] [place] [address] Telecom: Name: Tamera Waldron RN Position: [facility] RN Member Role: Primary Care Nurse Care Team Related Persons Name: LUZMARIA BAUTISTA Insurance Providers Guarantor name: EMERITA BAUTISTA Health Plan Information #: 1 Payer: [employer] Member Number: NA Policy Number: NA Group Number: NA Health Plan Information #: 2 Payer: SEL[employer] INSURANCE Member Number: NA Policy Number: NA Group Number: NA
--- OUTSIDE RECORDS SUMMARY | 2024-11-15 05:46 | XMS_ITS | Encounter Summary ---
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 Address [address] [place] [address] Care Team Providers Care Air Conditioning Manager Name Role Phone CHANI RHODES Primary [...] [facility] February 03, 2022 [id number] EMERITA BAUTISTA PATIENT [facility] MEDICAID MEDICAID MEDIC AID Oct 06, 2013 MEDICAI D [id number] EMERITA BAUTISTA PATIENT MEDICARE (WNR) MEDICARE (M) PART A Mar 06, 2015 PART A [id number] EMERITA BAUTISTA PATIENT MEDICARE (WNR) MEDICARE (M) PART B Mar 06, 2015 PART B [id number] [phone] EMERITA BAUTISTA PATIENT MEDICARE (WNR) MEDICARE (M) PART B Mar 06, 2015 PART B [id number] [phone] EMERITA BAUTISTA PATIENT MEDICARE (WNR) MEDICARE (M) PART A Mar 06, 2015 PART A [id number] MEERITA BAUTISTA PATIENT MEDICARE (WNR) MEDICARE (M) PART B Mar 06, 2015 PART B [id number] [phone] EMERITA BAUTISTA PATIENT MEDICARE (WNR) MEDICARE (M) PART A Mar 06, 2015 PART A [id number] EMERITA BAUTISTA PATIENT MEDICARE (WNR) MEDICARE (M) PART B Mar 06, 2015 PART B [id number] EMERITA BAUTISTA PATIENT Selected Encounter This section includes the information on record at [place] for the Encounter. Date/Time Encounter Type Encounter Description Reason Pro vider Source Nov 09, 2024 11:53 AM Outpatient Encounter PHYSICAL THERAPY IHE Encounter Template [...] Appointment Type Appointme nt Facility Name Nov 18, 2024 09:30 AM AMBULATORY - NONE [place] Nov 18, 2024 09:30 AM AMBULATORY [facility] MEDICINE [facility] Nov 26, 2024 09:00 AM AMBULATORY - MEDICINE [facility] [place] [facility] Dec 29, 2024 10:45 AM AMBULATORY - MEDICINE [place] [facility] Jan 20, 2025 10:00 AM [facility]ATORY - [facility]ICINE [facility] February 04, 2025 08:00 AM AM[facility]ULATORY - MEDICINE [facility] May 03, 2025 10:00 AM AMBULATORY - MEDICINE [facility] Social History: Smoking Status (Most current) and Tobacco Use (All prior to encounter date) This section includes the most current, and the historical, smoking and tobacco- related health factors from the [facility] facility where the Encounter took place. Current Smoking Status This section includes the most current smoking, or tobacco-related health factor, from the [place] facility where the Encounter took place. Date/Time Current Smoking Status Comment Facil ity Mar 11, 2023 08:30 AM [place]-TOBACCO QUIT 15 YRS OR MORE [facility] Tobacco Use History This section includes a history of the smoking, or tobacco-related health factors, that were collected on or before the date of the Encounter. The data comes from the [place] facility where the Encounter took place. Date/Time Smoking Status/Tobacco Use Comment F acility Mar 11, 2023 08:30 AM [place]-TOBACCO QUIT 15 YRS OR MORE [facility] Dec 27, 2020 02:00 PM [place]-TOBACCO FORMER USER [facility] Dec 27, 2020 02:00 PM [place]-TOBACCO QUIT 15 YRS OR MORE [facility] Advance Directives: All historical and current [...] Encounter. Date/Time Encounter Note(s) Provider Source Nov 09, 2024 11:54 AM PHYSICAL THERAPY N OTE: LOCAL TITLE: PHYSICAL THERAPY STANDARD TITLE: PHYSICAL THERAPY NOTE DATE OF NOTE: NOV 09, 2024@11:54 ENTRY DATE: NOV 09, 2024@11:54:06 AUTHOR: NOLVIA BURROWS EXP COSIGNER: URGENCY: STATUS: COMPLETED patient arrives to clinic requesting replacement SPC. Provided this device to patient ensuring proper size/fit of device. /lora/ NOLVIA BURROWS PT, DPT PHYSICAL THERAPIST Signed: 11/09/2024 11:54 NOLVIA BURROWSFIELD
--- OUTSIDE RECORDS SUMMARY | 2024-11-15 05:47 | XMS_ITS | Encounter Summary ---
Author Name [facility] [place] Address [address] [place] [address] Care Team Providers Care Synthetic Plasterer Name Role Phone CHANI RHODES Primary Care [...] to Policy Zayas [employer]ANCE [facility] February 03, 2022 [id number] EMERITA BAUTISTA PATIENT [facility] MEDICAID MEDICAID MEDIC AID Oct 06, 2013 MEDICAI D [id number] EMERITA BAUTISTA PATIENT MEDICARE (WNR) MEDICARE (M) PART A Mar 06, 2015 PART A [id number] EMERITA BAUTISTA PATIENT MEDICARE (WNR) MEDICARE (M) PART B Mar 06, 2015 PART B [id number] [phone] EMERITA BAUTISTA PATIENT MEDICARE (WNR) MEDICARE (M) PART B Mar 06, 2015 PART B [id number] EMERITA BAUTISTA PATIENT MEDICARE (WNR) MEDICARE (M) PART A Mar 06, 2015 PART A [id number] EMERITA BAUTISTA PATIENT MEDICARE (WNR) MEDICARE (M) PART B Mar 06, 2015 PART B [id number] EMERITA BAUTISTA PATIENT MEDICARE (WNR) MEDICARE (M) PART A Mar 06, 2015 PART A [id number] [phone] EMERITA BAUTISTA PATIENT MEDICARE (WNR) MEDICARE (M) PART B Mar 06, 2015 PART B [id number] EMERITA BAUTISTA PATIENT Selected Encounter This section includes the information on record at [place] for the Encounter. Date/Time Encounter Type Encounter Description Reason Provider Source Oct 27, 2024 09:30 AM MTMS BY PHARM MARY 15 MIN CLINICAL PHARMACY ICD-10-CM E11.9 Type 2 diabetes mellitus without complications JOAQUÍN BECK Behzad Encounter Template Text not used by [place] Assessments - Encounter Diagnoses This section includes the primary and secondary diagnoses documented for the Encounter. Date/Time Primary/Secondary Diagnosis Diagnosis Name Provider Source Oct 27, 2024 09:54 AM PRIMARY Type 2 diabetes mellitus without complications TAO BECK [facility] Plan of Treatment: Future Appointments (+ 6 months) and Future Tests (+/- 45 days) The Plan of Treatment section includes future care activities for the patient from all [place] treatmentfacilities. This section includes future appointments and future orders which are active, pending or scheduled. Future Appointments This section includes appointments that were scheduled to occur 6 months from the date of the Encounter, up to a maximum of 20 appointments. The data comes from all [place] treatment facilities. Appointment Date/Time Appointment Type Appointme nt Facility Name Nov 04, 2024 03:00 PM AMBULATORY - MEDICINE [place] [facility] Nov 18, 2024 09:30 AM AMBULATORY - NONE [place] Nov 18, 2024 09:30 AM AMBULATORY - MEDICINE [place] [facility] Nov 26, 2024 09:00 AM AMBULATORY - MEDICINE [place] [facility] Dec 29, 2024 10:45 AM AMBULATORY - MEDICINE [place] [facility] Jan 20, 2025 10:00 AM AMBULATORY - MEDICINE [facility] February 04, 2025 08:00 AM AMBULATORY - MEDICINE [facility] Active, Pending, and Scheduled Orders [...] 2024 08:39 PM Consult Order HEPATOLOGY SERVICES [facility] Sports Lawyer's Choice [facility] Sep 21, 2024 12:00 AM Laboratory - Chemistry Order ALCOHOL, ETHYL URINE PANEL URINE (DRUG) [facility] Sep 21, 2024 12:00 AM Laboratory - Chemistry Order AMPHETAMINES SCREEN PANEL URINE (DRUG) [facility] Sep 21, 2024 12:00 AM Laboratory - Chemistry Order FENTANYL SCREEN PANEL URINE (DRUG) [facility] Sep 21, 2024 12:00 AM Laboratory - Chemistry Order BENZODIAZEPINES SCREEN PANEL URINE (DRUG) [facility] Sep 21, 2024 12:00 AM Laboratory - Chemistry Order BUPRENORPHINE SCREEN PANEL URINE (DRUG) [facility] Sep 21, 2024 12:00 AM Laboratory - Chemistry Order COCAINE SCREEN PANEL UR[facility]DR[facility]) [facility] Sep 21, 2024 12:00 AM Laboratory - Chemistry Order CANNABINOIDS SCREEN PANEL URINE (DRUG) [facility] Sep 21, 2024 12:00 AM Laboratory - Chemistry Order METHADONE SCREEN URINE [facility] Sep 21, 2024 12:00 AM Laboratory - Chemistry Order OXYCODONE SCREEN PANEL URINE (DRUG) [facility] Sep 21, 2024 12:00 AM Laboratory - Chemistry Order OPIATES SCREEN PANEL URINE (DRUG) [facility] Social History: Smoking Status (Most [...] 08, 2024 09:00 AM VA-TOBACCO FORMER USER [facility] Tobacco Use History This section includes a history of the smoking, or tobacco-related health factors, that were collected on or before the date of the Encounter. The data comes from the [place] facility where the Encounter took place. Date/Time Smoking Status/Tobacco Use Comment F acility Mar 08, 2024 09:00 AM VA-TOBACCO QUIT 15 YRS OR MORE [facility] Mar 27, 2022 09:30 AM VA-TOBACCO FORMER USER [facility] Mar 27, 2022 09:30 AM VA-TOBACCO QUIT 15 YRS OR MORE [facility] Dec 22, 2018 10:29 AM VA-TOBACCO FORMER USER [facility] Dec 22, 2018 10:29 AM VA-TOBACCO QUIT 15 YRS OR MORE [facility] Mar 19, 2018 11:33 AM VA-TOBACCO FORMER USER [facility] Mar 19, 2018 11:33 AM VA-TOBACCO QUIT 15 YRS OR MORE [facility] May 13, 2017 01:22 PM QUIT TOBACCO USE > 7 YEARS AGO quit 24 yrs ago [facility] Nov 15, 2015 09:48 AM QUIT TOBACCO USE > 7 YEARS AGO States he last smoked 21 years ago [facility] Dec 07, 2009 02:51 PM QUIT TOBACCO USE > 7 YEARS AGO [facility] Advance Directives: All historical and current Section Date Range: From patient's date of to the date document was created. This section includes ALL of a patient's completed or amended [place] Advance and Rescinded Directives. The entries below indicate that a directive exists for the patient, but an actual copy is not included with this document. The data comes from all [facility]. Date Advance Directives Provider Source May 23, 2011 ADVANCE DIRECTIVE JUD BROOKS Encounter Notes: All associated encounter notes This section contains the clinical notes associated to the Encounter. Date/Time Encounter Note(s) Provider Source Oct 27, 2024 09:36 AM PHARMACY OUTPATIEN T NOTE: LOCAL TITLE: PHARMACY CLINIC NOTE STANDARD TITLE: PHARMACY OUTPATIENT NOTE DATE OF NOTE: OCT 27, 2024@09:36 ENTRY DATE: OCT 27, 2024@09:36:29 AUTHOR: BECK,SHANDA A EXP COSIGNER: URGENCY: STATUS: COMPLETED Patient Name: EMERITA BAUTISTA was seen via F for follow-up for diabetes management treatment. : Sep Age: 59 Sex: MALE Race: BLACK OR Per prev: Pt presents for a f/up. He is doing well but BG continue to run high. He was approved for mounjaro -he started it at last visit but states that BG still high. Pt's knee surgery has been post poned due to pt not holding jardiance. Per prev:Pt presented to a f/up 17 [...] appears tired and is not happy w/ [place] Care. REASON FOR EDUCATION VISIT TODAY: Pt [...] [facility] the [facility]. pt went to [place] 2 weeks ago for sick call for [...] note on 12/16/22: Pt presents at the [facility] for persistent watery diarrhea - 4-5 daily [...] 5. Cervical radiculopathy 6. HTN - Hypertension ([facility] [id number]) 7. Allergic Rhinitis ([facility] [id number]) 8. Vitamin D Deficiency ([facility] [id number]) 9. Hyperlipidemia ([facility] [id number]) 10. Fatty liver 11. Depression 12. History of surgery 13. Diabetic neuropathy 14. Erectile dysfunction 15. Type 2 diabetes mellitus 16. Under care of multiple providers 17. Bilateral hearing loss 18. Bilateral tinnitus CURRENT DIABETES MEDICATIONS Diabetes Medication Regimen: - insulin glargine (Semglee) to 40 units bid (and split into two seperate injections); if BG continues to be above 200 - may further increase to 46 units bid - insulin Novolog 25 units TID (B/L/D) --metformin SA * 750 mg in AM - tirzepatide (mounjaro) 2.5 mg weekly () --c/t empagliflozin 25mg daily in AM -eGFR 73ml/min on 09/2024 Previous DM Medications: -- liraglutide 1.8mg daily - stopped on 09/19/23 - Trulicity - stopped when converted back to semaglutide -- Semaglutide 0.5 mg weekly - pt restarted on 10/17/23 ; stopped d/t ADR:stinky burps, abdominal pains ; stools were loose --STOP semaglutide at 0.5 mg weekly *pt unable to tolerate 1 mg dose* Adherence: Oral meds: denies missed doses Insulin: [...] 0% VERY LOW sensor usage: 79% Date: 10/27/24 Dexcom G7 7 day avgt:209 mg/dl; 13% VERY HIGH 65% HIGH 22% IN RANGE 0% LOW 0% VERY LOW sensor usage: 79% GMI: 8.3% NUTRITION: breakfast: grapefruit; pt is in a lot of pain sometimes skips breakfast lunch: on a go 1PM ; pt makes food at home. Lot of times it's sandwiches on a go dinner: 7PM: varies, daughter or or self cooks, protein/starch/veggie, snacks: lots, their terriwater or diet cokeble Beverages consumed: water or diet coke chaged - stays away from greasy, fatty foods week of Exercise: knee pain is current limitation HYPOGLYCEMIC [...] => 272 lbs 04/2024 => 273 lbs 10/2024 => 274 lbs ASSESSMENT/PLAN: Per prev: Reviewed the dexcom [...] mg dose. Reviewed nutrition. f/up in October. 10/27/24 REviewed the upload of dexcom pt's time in target still suboptimal. Pt never titrated insulin glargine as recommended at the last visit. REcommended to do that again - offered written instructions pt declined. REcommend to also increase dose of mounjaro. Pt in agreement. Reviewed nutrition. Pt is scheudled to have knee surgery on 11/15/24. Pt to be contacted over the telephone after the surgery. DIABETES A1c is above goal of <7% - Medication management Diabetes Diabetes Medication Regimen: - INCREASE insulin glargine (Semglee) to 44units bid (and split into two seperate injections); if BG continues to be above 200 - may further increase to 46 units bid - c/t insulin Novolog 25 units TID (B/L/D) --c/t metformin SA * 750 mg in AM - INCREASE tirzepatide (mounjaro) to 5 mg weekly () --c/t empagliflozin 25mg daily in AM -eGFR 73ml/min on 09/2024 - Reviewed [facility] lab results - Monitor for s/sx hypoglycemia and contact clinic if BG consistently <70mg/dL - Healthy dietary and lifestyle modifications encouraged - to cut down on portions and sweets - Repeat A1c: x 3 months HTN: recent BP ; lisinopril ; LEILANI-I/ARB - defer to PCP ASCVD: atorvasatain Microalb: mALB/Cr: 31.8 H mg/G (03/2022) Most recent visit to field services director: 10/2021 Most recent visit to optometry: 04/2022; [...] to adminsiter semaglutide Clinic's Next Scheduled Follow-up: November 26, 2024 - tele No barriers; Patient understands and agrees to current treatment plan. If he has any questions, concerns, or changes in current health status he will call or come in to the VA. FUTURE APPOINTMENTS: 10/15/2024 08:00 CWM/SO/PODIATRY/JOCELYNE 10/27/2024 09:30 CWM/SO/PHARM/PACT 2 11/04/2024 15:00 CWM/NO/VVC/PAIN CLINIC 11/18/2024 09:30 SOP-V01 [facility] LIVER -02 P 01/20/2025 10:00 CWM/SO/PACT 7 05/03/2025 10:00 NHM/OPTOMETRY/WELSH/ DM type is : T2D Length of Visit: 30 minutes PBM PharmD Pharmacotherapy Rem V12: PHARMACIST INTERVENTIONS: TYPE 2 DIABETES MELLITUS Medication Intervention(s) Adjust dose or frequency of current medication due to other reason Plan: increase dose of tirzepatide; increase dose of insulin glargine Medication monitoring, no dosage change required, continue to monitor and assess /lora/ SHANDA BECK CLINICAL ORTHODONTIC LAB TECHNICIAN Signed: 10/27/2024 10:53 Receipt Acknowledged By: 10/30/2024 17:06 /lora/ JASMYNE SCHMITZ CERTIFIED NURSE PRACTITIONER SHANDA BECKFIELD
--- OUTSIDE RECORDS SUMMARY | 2024-11-15 05:47 | XMS_ITS | Continuity of Care Document ---
Author Organization [facility] Address [address] [place] [address]- Care Team Providers Care Surgical Resident Name Role Phone Marcelo DUMONT, Leia Wen Primary Care Physician [phone] Encounter [facility] ACCT [facility] [id number] Date(s): 09/20/24 - 10/20/[address] [address]- Attending Physician: Denton Lawrence Admitting Physician: Denton Lawrence Referring Physician: AdmtrDenton Encounter Type: Triage Allergies, Adverse Reactions, Alerts Substance Criticality Severity [...] Maintenance, 10/15/18 9:09:12 AM EST Start Date: 10/15/18 Status: Ordered Repeat number: 1 atorvastatin 40 [...] Refills, Maintenance, 04/14/24 5:16:00 PM EDT, [place], [facility], Partial fill upon patient [...] 6 Refills, Maintenance, 04/14/24 5:16:00 PM EDT, [place], [facility], Partial fill upon patient [...] Care team information Care Team Personnel Name: Leia Robertson NP Position: [facility] PCO Associate Professional Member Role: PCP Address: [address] [place] [address] Telecom: Name: Tamera Waldron RN Position: [facility] RN Member Role: Primary Care Nurse Care Team Related Persons Name: LUZMARIA BAUTISTA Insurance Providers Guarantor name: EMERITA [facility] Plan Information #: 1 Payer: SELF PAY INSURANCE Member Number: NA Policy Number: NA Group Number: NA
--- OUTSIDE RECORDS SUMMARY | 2024-11-15 05:47 | XMS_ITS | Encounter Summary ---
Author Name [place] Address [address] [place] [address] Care Team Providers Care Event Specialist Food Demonstrator Name Role Phone CHANI RHODES Primary Care [...] [facility] February 03, 2022 [id number] EMREITA BAUTISTA PATIENT [facility] MEDICAID MEDICAID MEDIC AID Oct 06, 2013 MEDICAI D [id number] EMERITA BAUTISTA PATIENT MEDICARE (WNR) MEDICARE (M) PART A Mar 06, 2015 PART A [id number] [phone] EMERITA BAUTISTA PATIENT MEDICARE (WNR) MEDICARE (M) PART B Mar 06, 2015 PART B [id number] EMERITA BAUTISTA PATIENT MEDICARE (WNR) MEDICARE (M) PART B Mar 06, 2015 PART B [id number] EMERITA BAUTISTA PATIENT MEDICARE (WNR) MEDICARE (M) PART A Mar 06, 2015 PART A [id number] [phone] EMERITA BAUTISTA PATIENT MEDICARE (WNR) MEDICARE (M) PART B Mar 06, 2015 PART B [id number] EMERITA BAUTISTA PATIENT MEDICARE (WNR) MEDICARE (M) PART B Mar 06, 2015 PART B [id number] [phone] EMERITA BAUTISTA PATIENT MEDICARE (WNR) MEDICARE (M) PART A Mar 06, 2015 PART A [id number] EMERITA BAUTISTA PATIENT Selected Encounter This section includes the information on record at [place] for the Encounter. Date/Time Encounter Type Encounter Description Reason Pro vider Source Nov 03, 2024 09:07 AM Outpatient Encounter PAIN CLINIC IHE Encounter Template Text not used by [place] Plan of Treatment: Future Appointments (+ 6 months) and Future Tests (+/- 45 days) The Plan of Treatment section includes future care activities for the patient from all [place] treatmentfacilities. This section includes future appointments and [...] 04, 2024 03:00 PM AMBULATORY - MEDICINE [facility] [place] [facility] Nov 18, 2024 09:30 AM AMBULATORY - NONE [place] Nov 18, 2024 09:30 AM AMBULATORY - MEDICINE [place] [facility] Nov 26, 2024 09:00 AM AMBULATORY - MEDICINE [place] [facility] Dec 29, 2024 10:45 AM AMBULATORY - MEDICINE [place] [facility] Jan 20, 2025 10:00 AM [facility] February 04, 2025 08:00 AM AMBULATORY - MEDICINE [facility] May 03, 2025 10:00 AM AMBULATORY - MEDICINE [facility] [place] [place] [facility] Active, Pending, and Scheduled Orders This section includes a listing of several types of active, pending, and scheduled orders, including clinic medications orders, diagnostic test orders, procedure orders and consult orders; where the start date of the order is 45 days before the date of the Encounter or 45 days after the date of theEncounter. The data comes from all [place] treatment facilities. Test Date/Time Test Type Test Details Facility Name Sep 21, 2024 12:00 AM Laboratory - Chemistry Order ALCOHOL, ETHYL URINE PANEL [facility] Sep 21, 2024 12:00 AM Laboratory - Chemistry Order FENTANYL SCREEN PANEL URINE (DRUG) [facility] Sep 21, 2024 12:00 AM Laboratory - Chemistry Order BENZODIAZEPINES SCREEN PANEL URINE (DRUG) [facility] Sep 21, 2024 12:00 AM Laboratory - Chemistry Order BUPRENORPHINE SCREEN PANEL URINE (DRUG) [facility] Sep 21, 2024 12:00 AM Laboratory - Chemistry Order AMPHETAMINES SCREEN PANEL URINE (DRUG) [facility] Sep 21, 2024 12:00 AM Laboratory - Chemistry Order CANNABINOIDS SCREEN PANEL URINE (DRUG) [facility] Sep 21, 2024 12:00 AM Laboratory - Chemistry Order COCAINE SCREEN PANEL URINE (DRUG) [facility] Sep 21, 2024 12:00 AM Laboratory - Chemistry Order METHADONE SCREEN URINE [facility] Sep 21, 2024 12:00 AM Laboratory - Chemistry Order OPIATES SCREEN PANEL URINE (DRUG) [facility] Sep 21, 2024 12:00 AM Laboratory - Chemistry Order OXYCODONE SCREEN PANEL URINE (DRUG) [facility] Social History: Smoking Status (Most current) [...] 11, 2023 08:30 AM VA-TOBACCO FORMER USER [facility] Tobacco Use History This section includes a history of the smoking, or tobacco-related health factors, that were collected on or before the date of the Encounter. The data comes from the [place] facility where the Encounter took place. Date/Time Smoking Status/Tobacco Use Comment F acility Mar 11, 2023 08:30 AM VA-TOBACCO QUIT [address] [facility] Dec 27, 2020 02:00 PM [facility] Dec 27, 2020 02:00 PM [place]-TOBACCO QUIT 15 YRS OR MORE [facility] Advance Directives: All historical and current [...] Encounter. Date/Time Encounter Note(s) Provider Source Nov 03, 2024 09:07 AM TELEPHONE ENCOUNTE R NOTE: LOCAL TITLE: TELEPHONE NOTE/SPECIALTY CLINIC STANDARD TITLE: TELEPHONE ENCOUNTER NOTE DATE OF NOTE: NOV 03, 2024@09:07 ENTRY DATE: NOV 03, 2024@09:08:41 AUTHOR: NELLA CIFUENTES EXP COSIGNER: URGENCY: STATUS: COMPLETED Called and spoke with pt to remind them that they have a VVC appt with the Pain clinic on 11/04/2024 at 1500. /lora/ NELLA CIFUENTES ADVANCED SULFUR BURNER Signed: 11/03/2024 09:08 NELLA CIFUENTES [facility]
--- OUTSIDE RECORDS SUMMARY | 2024-11-15 05:47 | XMS_ITS | Continuity of Care Document ---
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 It does not include entries that were removed or entered in error. Problem Status Onset Date Problem Type Date of Resolution Comments Source Diabetes Mellitus Type II or unspecified Inactive 10/06/19 06 Condition 05/13/2017 JAYUYA Allergic Rhinitis ([facility] [id number]) Active Condition [place] Bilateral hearing loss Active Condition JAYUYA Bilateral tinnitus Active Condition JAYUYA Cervical radiculopathy Active Condition Sep 11, 2024 Entered By: CHANI RHODES Comment: 12/25/23 MRI JAYUYA Degeneration of lumbar intervertebral disc Active Condition Sep 11, 2024 Entered By: CHANI RHODES Comment: 06/17/23 MRI lumbar spine JAYUYA Depression Active Condition J[place] Diabetic neuropathy Active Condition J[place]YA Erectile dysfunction Active Condition J[place]YA Fatty liver Active Condition Sep 11, 2024 Entered By: CHANI RHODES Comment: 03/08/24 US showed steatosis, fibrosis JAYUYA History of surgery Active Condition May 13, [...] CHANI RHODES Comment: urethral surgery for obstruction JAYUYA HTN - Hypertension (SCT [id number]) Active Condition [place] Hyperlipidemia ([facility]CT 83004284) Active Condition [place] Impotence Active Condition [facility] Long-term current use of opiate analgesic [...] By: CHANI RHODES Comment: XR knees 04/27/24 JAYUYA Type 2 diabetes mellitus Active Condition Nov 14, 2022 Entered By: OSM STANFORD Comment: See Diabetic PHARM D Note Dated Nov Entered By: CHANI RHODES Comment: 09/07/24 A1c 8.3 JAYUYA Under care of multiple providers Active Condition Sep 11, 2024 Entered By: CHANI RHODES Comment: community PCP - Dr. Worrell NILS Vitamin D Deficiency ([facility] [id number]) Active Condition JAYUYA : Rt Flank Paiin Inactive Condition 05/13/2017 Dec 07, 2009 Entered By: MAIRA E CLAYTON RA Comment: Decreased Urinary Flow JAYUYA Abdominal discomfort Inactive Condition 12/12/2023 JAYUYA Acute diarrhoea Inactive Condition 12/12/2023 [facility] Blurred vision (ICD-9-CM 368.8) Inactive Condition 05/13/2017 [facility] Edema of lower leg Inactive Condition 09/11/2024 JAYUYA Elevated blood pressure reading without diagnosis of hypertension Inactive Condition 05/13/2017 [place] H: [phone] & C: [phone] Inactive Condition 05/13/2017 [place] [facility] Onychomycosis of toenails Inactive Condition 09/11/2024 [facility] Other symptoms involving abdomen and pelvis Inactive Condition 05/13/2017 May 16, 2011 Entered By: SOM STANFORD Comment: Non-Descript ABD Pain May Entered By: SOM STANFORD Comment: CT, ABD MAY 16: No Acute Patholgy, +Fatty Liver,May 16, 2011 Entered By: SOM STANFORD Comment: +Benign Cysts Both Kidneys, +Colonic Diverticulae JAYUYA Unemployment * Inactive Condition 05/13/2017 [facility] Diagnosis: ICD-10-CM M15.9 Polyosteoarthriti s, unspecified [facility] Diagnosis: ICD-10-CM E11.9 Type 2 diabetes mellitus without complications Active Diagnosis JAYUYA Diagnosis: ICD-10-CM L60.3 Nail dystrophy Active Diagnosis [facility] Diagnosis: ICD-10-CM M25.561 Pain in right knee Active Diagnosis [facility] Diagnosis: ICD-10-CM M54.50 Low back pain, unspecified Active Diagnosis [facility] Diagnosis: ICD-10-CM M25.569 Pain in unspecified knee Active Diagnosis [facility] Diagnosis: ICD-10-CM Z71.89 Other specified counseling Active Diagnosis JAYUYA Diagnosis: ICD-10-CM G50.1 Atypical facial pain Active Diagnosis JAYUYA Diagnosis: ICD-10-CM Z46.0 Encounter for fit/adjst of spectacles and contact lenses Active Diagnosis [facility] Diagnosis: ICD-10-CM H34.8110 Central retinal vein occls, right eye, with macular edema Active Diagnosis [facility] Diagnosis: ICD-10-CM M19.91 Primary osteoarthritis, unspecified site Active Diagnosis [facility] Diagnosis: ICD-10-CM R10.9 Unspecified abdominal pain [facility] Diagnosis: ICD-10-CM E78.5 Hyperlipidemia, unspecified Active Diagnosis JAYUYA Diagnosis: ICD-10-CM I10 Essential (primary) hypertension Active Diagnosis JAYUYA Diagnosis: ICD-10-CM M54.51 Vertebrogenic low back pain Active Diagnosis JAYUYA Diagnosis: ICD-10-CM Z71.3 Dietary counseling and surveillance Active Diagnosis JAYUYA Diagnosis: ICD-10-CM R11.0 Nausea Active Diagnosis JAYUYA Medications Combined list of outpatient medications from [...] DAILY NEEDED FOR PAIN ORAL ACTIVE 08/20/2025 [id number] MARCK STANFORD 2023 200 [facility] IELD ACETAMINOPH EN 500MG TAB TAKE TWO TABLETS BY MOUTH THREE TIMES DAILY NEEDED FOR PAIN ORAL ACTIVE 11/28/2024 [id number] 4 SARA MARES F 2023 200 [facility] I[facility] AMOXICILLIN TRIHYDRATE 500MG/CLAVU LANATE K 125MG TAB TAKE 1 TABLET BY MOUTH EVERY 12 HOURS WITH FOOD, FOR 10 DAYS ORAL 08/05/2024 [id number] KI EATON LUC 2023 20 [facility] IELD ATORVASTATI N CA 80MG TAB TAKE ONE TABLET BY MOUTH AT BEDTIME FOR HIGH CHOLESTE ROL ORAL ACTIVE 11/05/2025 [id number] Gale RHODES 2024 90 [facility] IELD ATORVASTATI N CA 80MG TAB TAKE ONE TABLET BY MOUTH AT BEDTIME FOR HIGH CHOLESTE ROL ORAL DISCONT INUED 11/28/2024 [id number] 4 SARA MARES RMEH F 2023 90 [facility] IELD BUPRENORPHI NE 10MCG/HR PATCH APPLY 1 PATCH TO SKIN EVERY 5 DAYS (REMOVE PATCH BEFORE APPLYING A NEW PATCH) TRANSD ERMAL DISCONT INUED BY PROVIDE R 02/27/2025 [id number] 4 MARK CARLH B 2023 6 [facility] BUPRENORPHI NE 15MCG/HR PATCH APPLY 1 PATCH TO SKIN EVERY 5 DAYS (REMOVE PATCH BEFORE APPLYING A NEW PATCH) TRANSD ERMAL ACTIVE 03/27/2025 [id number] 4 GERALDINEFERRYLIE QUARLESSABA B 2023 6 [facility] BUPRENORPHI NE 5MCG/HR PATCH APPLY 1 PATCH TO SKIN EVERY 5 DAYS (REMOVE PATCH BEFORE APPLYING A NEW PATCH) TRANSD ERMAL DISCONT INUED BY PROVIDE R 09/22/2024 [id number] 4 [facility] 2023 6 [facility] CARBOXYMETH YLCELLULOSE NA 0.5% SOLN,OPH INSTILL 1 DROP INTO EACH EYE FOUR TIMES A DAY FOR DRY EYE OPHTHA LMIC ACTIVE 05/01/2025 [id number] 4 WELSH,LAC EY J 2023 45 [facility] CHOLECALCIF VINH 50MCG (2,000UNIT) TAB TAKE ONE TABLET BY MOUTH ONCE DAILY FOR VITAMIN SUPPLEME NTATION ORAL ACTIVE 12/15/2024 [id number] 4 SARA MARES RMEN F 2023 100 [place] CYCLOBENZAP RINE HCL 10MG TAB TAKE ONE TABLET BY MOUTH TWICE DAILY NEEDED FOR MUSCLE SPASM ORAL DISCONT INUED BY PROVIDE R 08/20/2025 [id number] 4 MARCK STANFORD 2023 60 [place] CYCLOBENZAP RINE HCL 10MG TAB TAKE ONE TABLET BY MOUTH AT BEDTIME NEEDED FOR MUSCLE SPASM ORAL 12/28/2023 [id number] 4 SARA MARES RMEN F 2023 30 [place] DICLOFENAC NA 1% GEL,TOP APPLY 2 GRAMS TOPICALL Y FOUR TIMES A DAY FOR OSTEOART HRITIS - USE DOSING CARD PROVIDED IN BOX TOPICA L ACTIVE 11/05/2025 [id number] 5 [facility] 2024 200 [facility] EMPAGLIFLOZ IN 25MG TAB TAKE ONE TABLET BY MOUTH ONCE DAILY ORAL ACTIVE 09/07/2025 [id number] 5 Eli BECK 2023 30 [place] EMPAGLIFLOZ IN 25MG TAB TAKE ONE TABLET BY MOUTH ONCE DAILY ORAL DISCONT INUED 10/17/2024 [id number] 4 Eli BECK A 2023 90 [place] EMPAGLIFLOZ IN 25MG TAB TAKE ONE TABLET BY MOUTH ONCE DAILY ORAL DISCONT INUED 10/07/2024 [id number] Eli BECKA A 2023 60 [place] EMPAGLIFLOZ IN 25MG TAB TAKE ONE TABLET BY MOUTH ONCE DAILY ORAL DISCONT INUED 01/11/2024 [id number] Eli BECK A 2022 60 [place] GABAPENTIN 100MG CAP TAKE ONE CAPSULE BY MOUTH THREE TIMES A DAY FOR 7 DAYS, THEN TAKE TWO CAPSULES THREE TIMES A DAY FOR 7 DAYS, THEN TAKE THREE CAPSULES THREE TIMES A DAY FOR 16 DAYS ORAL 04/25/2024 [id number] 4 [facility] B 2023 207 [facility] GABAPENTIN 100MG CAP TAKE ONE CAPSULE BY MOUTH EVERY MORNING AND TAKE TWO CAPSULES AT BEDTIME FOR NERVE PAIN ORAL 03/11/2024 [id number] 4 Gale RHODES 2023 270 [place] GABAPENTIN 300MG CAP TAKE TWO CAPSULES BY MOUTH THREE TIMES A DAY ORAL ACTIVE 08/28/2025 [id number] 5 [facility] B 2024 540 [facility] GABAPENTIN 300MG CAP TAKE ONE CAPSULE BY MOUTH THREE TIMES A DAY FOR NERVE PAIN ORAL DISCONT INUED 08/13/2025 [id number] 4 [facility] B 2023 270 [facility] GLUCOSE 4GM TAB,CHEW CHEW FOUR TABLETS BY MOUTH NEEDED FOR LOW BLOOD SUGAR ORAL ACTIVE 06/11/2025 [id number] 4 ИРИНА AARGON 2023 20 [place] HYDROCODONE 5MG/ACETAMI NOPHEN 325MG TAB TAKE 1 TABLET BY MOUTH TWICE DAILY FOR PAIN ORAL ACTIVE 12/04/2024 [id number] 5 [facility] 2024 60 [facility] HYDROCODONE 5MG/ACETAMI NOPHEN 325MG TAB TAKE 1 TABLET BY MOUTH TWICE DAILY NEEDED NEXT FILL 10/25 ORAL 10/24/2024 [id number] 4 [facility] 2023 60 [facility] HYDROCODONE 5MG/ACETAMI NOPHEN 325MG TAB TAKE 1 TABLET BY MOUTH TWICE DAILY NEEDED FOR PAIN ORAL 09/26/2024 [id number] 4 [facility] 2023 60 [facility] HYDROCODONE 5MG/ACETAMI NOPHEN 325MG TAB TAKE 1 TABLET BY MOUTH TWICE DAILY FOR PAIN ORAL 06/20/2024 [id number] 4 [facility] 2023 60 [facility] HYDROCODONE 5MG/ACETAMI NOPHEN 325MG TAB TAKE 1 TABLET BY MOUTH TWICE DAILY FOR PAIN (NEXT FILL 04/19/24) ORAL 04/21/2024 [id number] 4 [facility] 2023 60 [facility] HYDROCODONE 5MG/ACETAMI NOPHEN 325MG TAB TAKE 1 TABLET BY MOUTH TWICE DAILY NEEDED FOR PAIN MAY USE UP TO 3 DAYS PER WEEK (NEXT FILL 03/09/24) ORAL 03/11/2024 [id number] 4 [facility] 2023 24 [facility] INSULIN,ASP ART,HUMAN (EQV-NOVOLO G) 100 UNIT/ML,FLE XPEN,3ML INJECT 27 UNITS SUBCUTAN EOUSLY THREE TIMES A DAY BEFORE MEALS INJECT 15 MINUTES BEFORE MEALS IF MEAL SKIPPED SKIP THE DOSE SUBCUT ANEOUS ACTIVE 06/11/2025 [id number] 5 ИРИНА ARAGON 2023 10 [facility] IELD INSULIN,ASP ART,HUMAN (EQV-NOVOLO G) 100 UNIT/ML,FLE XPEN,3ML INJECT 25 UNITS SUBCUTAN EOUSLY THREE TIMES A DAY INJECT 15 MINUTES BEFORE MEALS IF MEAL SKIPPED SKIP THE DOSE SUBCUT ANEOUS DISCONT INUED (EDIT) 02/26/2025 [id number] 4 lEi BECK 2023 10 [place] INSULIN,ASP ART,HUMAN (EQV-NOVOLO G) 100 UNIT/ML,FLE XPEN,3ML INJECT 25 UNITS SUBCUTAN EOUSLY BEFORE BREAKFAS T AND INJECT 25 UNITS BEFORE LUNCH AND INJECT 25 UNITS BEFORE SUPPER (SKIP DOSE IF MEAL IS SKIPPED) SUBCUT ANEOUS 01/11/2024 [id number] Eli BECK 2022 20 [place] INSULIN,GLA RGINE-YFGN 100UNIT/ML INJ PEN,3ML INJECT 46 UNITS SUBCUTAN EOUSLY TWICE DAILY SUBCUT ANEOUS ACTIVE 02/26/2025 [id number] 4 Eli BECK 2023 10 [place] INSULIN,GLA RGINE-YFGN 100UNIT/ML INJ PEN,3ML INJECT 40 UNITS SUBCUTAN EOUSLY TWICE DAILY FOR DIABETES SUBCUT ANEOUS 02/14/2024 [id number] 4 Eli BECK 2022 20 [place] LIDOCAINE 5% PATCH APPLY 1 PATCH TOPICALL Y ONCE DAILY NEEDED (LEAVE PATCH ON FOR 12 HOURS, THEN REMOVE PATCH) TOPICA L ACTIVE 11/28/2024 [id number] 4 SARA MARESEN F 2023 30 [place] LISINOPRIL 5MG TAB TAKE ONE TABLET BY MOUTH ONCE DAILY TO CONTROL BLOOD PRESSURE ORAL ACTIVE 06/04/2025 [id number] 4 SARA MARESEN F 2023 90 [place] LISINOPRIL 5MG TAB TAKE ONE TABLET BY MOUTH ONCE DAILY TO CONTROL BLOOD PRESSURE ORAL DISCONT INUED 05/21/2024 [id number] 4 SARA MARESEN F 2022 90 [place] METFORMIN HCL 750MG 24HR TAB,SA TAKE ONE TABLET BY MOUTH ONCE DAILY ORAL ACTIVE 02/26/2025 [id number] 5 Eli BECK JANY A 2023 90 [place] METFORMIN HCL 750MG 24HR TAB,SA TAKE ONE TABLET BY MOUTH ONCE DAILY ORAL 02/14/2024 [id number] Eli BECK JANY A 2022 90 [place] SEMAGLUTIDE 0.25MG/0.37 5ML INJ,SOLN,PE N,3ML INJECT 0.5MG SUBCUTAN EOUSLY ONCE A WEEK FOR TYPE 2 DIABETES MELLITUS SUBCUT ANEOUS DISCONT INUED BY PROVIDE R 08/06/2025 [id number] Eli BECKFrancisco J A 2023 1 [place] SEMAGLUTIDE 0.25MG/0.37 5ML INJ,SOLN,PE N,3ML INJECT 0.5MG SUBCUTAN EOUSLY ONCE A WEEK FOR TYPE 2 DIABETES MELLITUS SUBCUT ANEOUS DISCONT INUED 04/15/2025 [id number] Eli BECK DONTEPRAVEENFrancisco J Francisco J 2023 1 [place] SEMAGLUTIDE 0.25MG/0.37 5ML INJ,SOLN,PE N,3ML INJECT 0.5MG SUBCUTAN EOUSLY ONCE A WEEK FOR TYPE 2 DIABETES MELLITUS SUBCUT ANEOUS DISCONT INUED BY PROVIDE R 11/04/2024 [id number] Eli BECKFrancisco J A 2023 1 [place] SEMAGLUTIDE 0.25MG/0.37 5ML INJ,SOLN,PE N,3ML INJECT 0.25MG SUBCUTAN EOUSLY ONCE A WEEK FOR 2 WEEKS, THEN INJECT 0.5MG ONCE A WEEK SUBCUT ANEOUS DISCONT INUED BY PROVIDE R 11/16/2023 [id number] 4 Eli BECK A 2023 1 [place] SEMAGLUTIDE 1MG/0.75ML INJ,SOLN,PE N,3ML INJECT 1MG SUBCUTAN EOUSLY ONCE A WEEK FOR TYPE 2 DIABETES MELLITUS SUBCUT ANEOUS DISCONT INUED BY PROVIDE R 11/27/2024 [id number] Eli BECKA A 2023 1 [place] TIRZEPATIDE 2.5MG/0.5ML INJ,SOLN PACK,4 INJECT 2.5MG/0. 5ML SUBCUTAN EOUSLY WEEKLY SUBCUT ANEOUS DISCONT INUED BY PROVIDE R 10/06/2025 [id number] Eli BECKBELA A 2023 1 [place] TIRZEPATIDE 5MG/0.5ML INJ,SOLN PACK,4 INJECT 5MG/0.5M L SUBCUTAN EOUSLY WEEKLY SUBCUT ANEOUS ACTIVE 10/28/2025 [id number] 5 Eli BECK A 2024 1 [place] Immunizations Combined list of available immunizations from the Department of Defense and Veterans Affairs facilities. 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 Comments Source INFLUENZA, SPLIT VIRUS, TRIVALENT, PF 2023 BIANCA COELLO LEFT DELTO ID [id number] 140 complet ed [place] INFLUENZA, INJECTABLE, QUADRIVALENT, PRESERVATIVE FREE 2021 BAUDILIO CONROY RIGHT DELTO ID [id number] 150 complet ed [place] ZOSTER RECOMBINANT 2 2021 BAUDILIO CONROY DY LEFT DELTO ID [id number] 187 complet ed [place] COVID-19 (MODERNA), MRNA, LNP-S, PF, 100 MCG/0.5ML DOSE OR 50 MCG/0.25ML DOSE 1 2021 207 complet ed MOD; [id number]; 2 [place] ZOSTER RECOMBINANT 1 2021 187 complet ed [place] INFLUENZA, INJECTABLE, QUADRIVALENT, PRESERVATIVE FREE 2020 150 complet ed Partner:Meka AVELAR.Admin istered by:[facility]. ([id number].Address :[address] [place] [phone] 2021 [facility] INFLUENZA, INJECTABLE, QUADRIVALENT, PRESERVATIVE [...] YRS (HISTORICAL) 2011 88 complet ed [facility] FLU,3 YRS (HISTORICAL) 2010 88 complet ed [facility] [facility] FLU,3 YRS (HISTORICAL) 2010 88 complet ed Pt. got his vaccine at his employer. [place] [facility] DTAP, UNSPECIFIED FORMULATION 2010 107 complet ed Site: Right Deltoid [place] FLU,3 YRS (HISTORICAL) 2009 88 complet ed had flu approx date [facility] Results Combined list of recent chemistry, hematology and other laboratory results from Department of Defense and Veterans Affairs, ranging from 15 months to all on record, depending upon the facility. Order Name Results Value Reference Range Date Interpretation Specimen Comments Source PSA PROSTATE SPECIFIC AG [MASS/VOLU ME] IN SERUM OR PLASMA 0.33 ng/mL 0.00 - 4.00 09/07 Specimen Type: SERUM No comment entered. Ordering Provider: ROLDAN RHODES Report Released Date/Time: Sep 06, 2024 01:20 PM Reporting Lab: [place] [facility] [place] [place] [address] Performing Lab: [facility] [address] [facility] [address] [place] TSH THYROTROPI N [UNITS/VOL UME] IN SERUM OR PLASMA 1.86 u[IU]/mL 0.35 - 5.00 09/07 Specimen Type: SERUM No comment entered. Ordering Provider: ROLDAN RHODES Report Released Date/Time: Sep 06, 2024 01:20 PM Reporting Lab: [address] [address] Performing Lab: [address] [address] [place] LIPID PANEL FASTING CHOLESTERO L [MASS/VOLU ME] IN SERUM OR PLASMA 131 mg/dL 09/07 Specimen Type: SERUM Comment: Hemolysis present analysis cannot be performed. Hemolysis present may falsly elevate Potassium Total and Direct Bili, Iron, AST, %Fe. Ordering Provider: ROLDAN RHODES Report Released Date/Time: Sep 06, 2024 01:20 PM Reporting Lab: [address] [address] Performing Lab: [address] [address] [place] LIPID PANEL FASTING TRIGLYCERI DE [MASS/VOLU ME] IN SERUM OR PLASMA 219 mg/dL 0 - 150 09/07 H Specimen Type: SERUM Comment: Hemolysis present analysis cannot be performed. Hemolysis present may falsly elevate Potassium Total and Direct Bili, Iron, AST, %Fe. Ordering Provider: ROLDAN RHODES Report Released Date/Time: Sep 06, 2024 01:20 PM Reporting Lab: [address] [address] Performing Lab: [address] [address] [place] LIPID PANEL FASTING CHOLESTERO L IN LDL [MASS/VOLU ME] IN SERUM OR PLASMA BY CALCZAHRA N 55 mg/dL 0 - 129 09/07 Specimen Type: SERUM Comment: Hemolysis present analysis cannot be performed. Hemolysis present may falsly elevate Potassium Total and Direct Bili, Iron, AST, %Fe. Ordering Provider: ROLDAN RHODES Report Released Date/Time: Sep 06, 2024 01:20 PM Reporting Lab: [address] [address] Performing Lab: [address] [address] [place] LIPID PANEL FASTING CHOLESTERO L.TOTAL/CH OLESTEROL IN HDL [MASS RATIO] IN SERUM OR PLASMA 4.1 09/07 Specimen Type: SERUM Comment: Hemolysis present analysis cannot be performed. Hemolysis present may falsly elevate Potassium Total and Direct Bili, Iron, AST, %Fe. Ordering Provider: ROLDAN RHODES Report Released Date/Time: Sep 06, 2024 01:20 PM Reporting Lab: [address] [address] Performing Lab: [address] [address] [place] [employer] [place] LIPID PANEL FASTING CHOLESTERO L IN HDL [MASS/VOLU ME] IN SERUM OR PLASMA 32 mg/dL 40 - 60 09/07 L Specimen Type: SERUM Comment: Hemolysis present analysis cannot be performed. Hemolysis present may falsly elevate Potassium Total and Direct Bili, Iron, AST, %Fe. Ordering Provider: ROLDAN RHODES Report Released Date/Time: Sep 06, 2024 01:20 PM Reporting Lab: [address] [address] Performing Lab: [address] [address] [place] HEMOGLOB IN A1C PANEL HEMOGLOBIN [...] be between 8.73 and 9.27. Ref: [email or web address] Ordering Provider: ROLDAN RHODES Report Released Date/Time: Sep 06, 2024 01:20 PM Reporting Lab: [address] [address] Performing Lab: [address] [address] [place] LIVER FUNCTION PROTEIN [MASS/VOLU ME] IN SERUM OR PLASMA 7.5 g/dL 6.0 - 8.3 09/07 Specimen Type: SERUM Comment: Hemolysis present analysis cannot be performed. Hemolysis present may falsly elevate Potassium Total and Direct Bili, Iron, AST, %Fe. Ordering Provider: ROLDAN RHODES Report Released Date/Time: Sep 06, 2024 01:20 PM Reporting Lab: [address] [address] Performing Lab: [address] [address] [place] LIVER FUNCTION ALBUMIN [MASS/VOLU ME] IN SERUM OR PLASMA 3.9 g/dL 3.5 - 5.0 09/07 Specimen Type: SERUM Comment: Hemolysis present analysis cannot be performed. Hemolysis present may falsly elevate Potassium Total and Direct Bili, Iron, AST, %Fe. Ordering Provider: ROLDAN RHODES Report Released Date/Time: Sep 06, 2024 01:20 PM Reporting Lab: [address] [address] Performing Lab: [address] [address] [place] ALKALINE PHOSPHATAS E [ENZYMATIC ACTIVITY/V OLUME] IN SERUM OR PLASMA 80 U/L 40 - 150 09/07 Specimen Type: SERUM Comment: Hemolysis present analysis cannot be performed. Hemolysis present may falsly elevate Potassium Total and Direct Bili, Iron, AST, %Fe. Ordering Provider: ROLDAN RHODES Report Released Date/Time: Sep 06, 2024 01:20 PM Reporting Lab: [facility] [address] [facility] [address] Performing Lab: [facility] [address] [facility] [address] [facility] LIVER FUNCTION ASPARTATE AMINOTRANS FERASE [ENZYMATIC ACTIVITY/V OLUME] IN SERUM OR PLASMA 34 U/L 5 - 34 09/07 Specimen Type: SERUM Comment: Hemolysis present analysis cannot be performed. Hemolysis present may falsly elevate Potassium Total and Direct Bili, Iron, AST, %Fe. Ordering Provider: ROLDAN RHODES Report Released Date/Time: Sep 06, 2024 01:20 PM Reporting Lab: [facility] [address] [address] Performing Lab: [facility] [address] [address] [facility] LIVER FUNCTION ALANINE AMINOTRANS FERASE [ENZYMATIC ACTIVITY/V OLUME] IN SERUM OR PLASMA 56 U/L 09/07 H Specimen Type: SERUM Comment: Hemolysis present analysis cannot be performed. Hemolysis present may falsly elevate Potassium Total and Direct Bili, Iron, AST, %Fe. Ordering Provider: ROLDAN RHODES Report Released Date/Time: Sep 06, 2024 01:20 PM Reporting Lab: [facility] [address] [facility] [address] Performing Lab: [address] [address] [facility] LIVER FUNCTION BILIRUBIN. TOTAL [MASS/VOLU ME] IN SERUM OR PLASMA commentm g/dL 0.2 - 1.2 09/07 Specimen Type: SERUM Comment: Hemolysis present analysis cannot be performed. Hemolysis present may falsly elevate Potassium Total and Direct Bili, Iron, AST, %Fe. Ordering Provider: ROLDAN RHODES Report Released Date/Time: Sep 06, 2024 01:20 PM Reporting Lab: [facility] [address] [address] Per[facility]: [facility] [address] [address] [facility] LIVER FUNCTION BILIRUBIN. DIRECT [MASS/VOLU ME] IN SERUM OR PLASMA commentm g/dL 0 - 0.5 09/07 Specimen Type: SERUM Comment: Hemolysis present analysis cannot be performed. Hemolysis present may falsly elevate Potassium Total and Direct Bili, Iron, AST, %Fe. Ordering Provider: ROLDAN RHODES Report Released Date/Time: Sep 06, 2024 01:20 PM Reporting Lab: [address] [address] Performing Lab: [address] [address] [employer] BASIC METABOLI C PANEL (fasting ) UREA NITROGEN [MASS/VOLU ME] IN SERUM OR PLASMA 15 mg/dL 7 - 25 09/07 Specimen Type: SERUM Comment: Hemolysis present analysis cannot be performed. Hemolysis present may falsly elevate Potassium Total and Direct Bili, Iron, AST, %Fe. Ordering Provider: ROLDAN RHODES Report Released Date/Time: Sep 06, 2024 01:20 PM Reporting Lab: [address] [address] Performing Lab: [address] [address] [employer] BASIC METABOLI C PANEL (fasting ) GLUCOSE [MASS/VOLU ME] IN SERUM OR PLASMA 176 mg/dL 65 - 100 09/07 H Specimen Type: SERUM Comment: Hemolysis present analysis cannot be performed. Hemolysis present may falsly elevate Potassium Total and Direct Bili, Iron, AST, %Fe. Ordering Provider: ROLDAN RHODES Report Released Date/Time: Sep 06, 2024 01:20 PM Reporting Lab: [address] [address] Performing Lab: [address] [address] [employer] BASIC METABOLI C PANEL (fasting ) SODIUM [MOLES/VOL UME] IN SERUM OR PLASMA 139 mmol/L 135 - 145 09/07 Specimen Type: SERUM Comment: Hemolysis present analysis cannot be performed. Hemolysis present may falsly elevate Potassium Total and Direct Bili, Iron, AST, %Fe. Ordering Provider: ROLDAN RHODES Report Released Date/Time: Sep 06, 2024 01:20 PM Reporting Lab: [address] [id number] Performing Lab: [address] [id number] [place] BASIC METABOLI C PANEL (fasting ) POTASSIUM [MOLES/VOL UME] IN SERUM OR PLASMA 4.4 mmol/L 3.5 - 5.0 09/07 Specimen Type: SERUM Comment: Hemolysis present analysis cannot be performed. Hemolysis present may falsly elevate Potassium Total and Direct Bili, Iron, AST, %Fe. Ordering Provider: ROLDAN RHODES Report Released Date/Time: Sep 06, 2024 01:20 PM Reporting Lab: [address] [id number] Performing Lab: [address] [address] [place] BASIC METABOLI C PANEL (fasting ) CHLORIDE [MOLES/VOL UME] IN SERUM OR PLASMA 104 mmol/L 100 - 110 09/07 Specimen Type: SERUM Comment: Hemolysis present analysis cannot be performed. Hemolysis present may falsly elevate Potassium Total and Direct Bili, Iron, AST, %Fe. Ordering Provider: ROLDAN RHODES Report Released Date/Time: Sep 06, 2024 01:20 PM Reporting Lab: [address] [address] Performing Lab: [address] [address] [place] BASIC METABOLI C PANEL (fasting ) CARBON DIOXIDE, TOTAL [MOLES/VOL UME] IN SERUM OR PLASMA 23 meq/L 20 - 30 09/07 Specimen Type: SERUM Comment: Hemolysis present analysis cannot be performed. Hemolysis present may falsly elevate Potassium Total and Direct Bili, Iron, AST, %Fe. Ordering Provider: ROLDAN RHODES Report Released Date/Time: Sep 06, 2024 01:20 PM Reporting Lab: [address] [address] Performing Lab: [address] [address] [place] BASIC METABOLI C PANEL (fasting ) CREATININE [MASS/VOLU ME] IN SERUM OR PLASMA 1.15 mg/dL 0.50 - 1.40 09/07 Specimen Type: SERUM Comment: Hemolysis present analysis cannot be performed. Hemolysis present may falsly elevate Potassium Total and Direct Bili, Iron, AST, %Fe. Ordering Provider: ROLDAN RHODES Report Released Date/Time: Sep 06, 2024 01:20 PM Reporting Lab: [address] [address] Performing Lab: [address] [address] [place] [employer] BASIC METABOLI C PANEL (fasting ) [...] Sep 06, 2024 01:20 PM Reporting Lab: [address] [address] Performing Lab: [address] [address] [place] [employer] MICROALB UMIN CREATINI NE RATIO PANEL MICROALBUM IN/CREATIN INE [MASS RATIO] IN URINE 18.2 mg/g 0 - 29.9 09/07 Specimen Type: URINE No comment entered. Ordering Provider: ROLDAN RHODES Report Released Date/Time: Sep 06, 2024 01:20 PM Reporting Lab: [address] [address] Performing Lab: [facility] [address] [facility] [address] [place] MICROALB UMIN CREATINI NE RATIO PANEL MICROALBUM IN [MASS/VOLU ME] IN URINE 0.9 mg/dL 09/07 Specimen Type: URINE No comment entered. Ordering Provider: ROLDAN RHODES Report Released Date/Time: Sep 06, 2024 01:20 PM Reporting Lab: [facility] [address] Performing Lab: [place] [facility] [facility]USETS [address] [address] [place] MICROALB UMIN CREATINI NE RATIO PANEL CREATININE [MASS/VOLU ME] IN URINE 49.56 mg/dL 09/07 Specimen Type: URINE No comment entered. Ordering Provider: ROLDAN RHODES Report Released Date/Time: Sep 06, 2024 01:20 PM Reporting Lab: [facility]TRN [address] [address] Performing Lab: [facility]RL TRN [facility] [address] [place] URINALYS IS COLOR OF URINE Colorles s 09/07 Specimen Type: URINE Comment: If Glucose = >500 and Ketones are positive, please alert the Physician. Ordering Provider: ROLDAN RHODES Report Released Date/Time: Sep 06, 2024 01:20 PM Reporting Lab: [facility] TRN [address] [address] Performing Lab: [facility] [address] [place] URINALYS IS APPEARANCE OF URINE Clear 09/07 Specimen Type: URINE Comment: If Glucose = >500 and Ketones are positive, please alert the Physician. Ordering Provider: ROLDAN RHODES Report Released Date/Time: Sep 06, 2024 01:20 PM Reporting Lab: [facility]ITALR[facility]ITALN [address] [address] Performing Lab: [facility]RJ[facility] CENTERTRN [facility]USE[address] [address] [place] URINALYS IS GLUCOSE [MASS/VOLU ME] IN URINE >1000mg/ dL 09/07 Specimen Type: URINE Comment: If Glucose = >500 and Ketones are positive, please alert the Physician. Ordering Provider: ROLDAN RHODES Report Released Date/Time: Sep 06, 2024 01:20 PM Reporting Lab: [address] [address] Performing Lab: [facility] [address] [place] URINALYS IS KETONES [MASS/VOLU ME] IN URINE BY TEST STRIP NEGATIVE mg/dL 09/07 Specimen Type: URINE Comment: If Glucose = >500 and Ketones are positive, please alert the Physician. Ordering Provider: ROLDAN RHODES Report Released Date/Time: Sep 06, 2024 01:20 PM Reporting Lab: [address] [address] Performing Lab: [address] [address] [place] URINALYS IS ERYTHROCYT ES [PRESENCE] IN URINE SEDIMENT BY LIGHT MICROSCOPY NEGATIVE mg/dL 09/07 Specimen Type: URINE Comment: If Glucose = >500 and Ketones are positive, please alert the Physician. Ordering Provider: ROLDAN RHODES Report Released Date/Time: Sep 06, 2024 01:20 PM Reporting Lab: [address] [address] Performing Lab: [address] [address] [place] URINALYS IS PROTEIN [MASS/VOLU ME] IN URINE BY TEST STRIP NEGATIVE mg/dL 09/07 Specimen Type: URINE Comment: If Glucose = >500 and Ketones are positive, please alert the Physician. Ordering Provider: ROLDAN RHODES Report Released Date/Time: Sep 06, 2024 01:20 PM Reporting Lab: [address] [address] Performing Lab: [address] [address] [place] URINALYS IS NITRITE [PRESENCE] IN URINE NEGATIVE mg/dL 09/07 Specimen Type: URINE Comment: If Glucose = >500 and Ketones are positive, please alert the Physician. Ordering Provider: ROLDAN RHODES Report Released Date/Time: Sep 06, 2024 01:20 PM Reporting Lab: [address] [address] Performing Lab: [address] [address] [place] URINALYS IS BILIRUBIN. TOTAL [PRESENCE] IN URINE NEGATIVE mg/dL 09/07 Specimen Type: URINE Comment: If Glucose = >500 and Ketones are positive, please alert the Physician. Ordering Provider: ROLDAN RHODES Report Released Date/Time: Sep 06, 2024 01:20 PM Reporting Lab: [address] [address] Performing Lab: [address] [address] [place] URINALYS IS SPECIFIC GRAVITY OF URINE BY REFRACTOME TRY 1.023 1.016 - 1.022 09/07 H Specimen Type: URINE Comment: If Glucose = >500 and Ketones are positive, please alert the Physician. Ordering Provider: ROLDAN RHODES Report Released Date/Time: Sep 06, 2024 01:20 PM Reporting Lab: [address] [address] Performing Lab: [address] [address] [place] URINALYS IS PH OF URINE BY TEST STRIP 6.0 5.0 - 9.0 09/07 Specimen Type: URINE Comment: If Glucose = >500 and Ketones are positive, please alert the Physician. Ordering Provider: ROLDAN RHODES Report Released Date/Time: Sep 06, 2024 01:20 PM Reporting Lab: [address] [address] Performing Lab: [address] [address] [place] URINALYS IS UROBILINOG EN [MASS/VOLU ME] IN URINE BY TEST STRIP Normalmg /dL <2.0 - 2.0 09/07 Specimen Type: URINE Comment: If Glucose = >500 and Ketones are positive, please alert the Physician. Ordering Provider: ROLDAN RHODES Report Released Date/Time: Sep 06, 2024 01:20 PM Reporting Lab: [address] [address] Performing Lab: [address] [address] [place] URINALYS IS LEUKOCYTE ESTERASE [PRESENCE] IN URINE BY TEST STRIP NEGATIVE 09/07 Specimen Type: URINE Comment: If Glucose = >500 and Ketones are positive, please alert the Physician. Ordering Provider: ROLDAN RHODES Report Released Date/Time: Sep 06, 2024 01:20 PM Reporting Lab: [address] [address] Performing Lab: [address] [address] [place] CBC AND DIFF (AUTO) LEUKOCYTES [#/VOLUME] IN BLOOD BY AUTOMATED COUNT 5.45 10*3/uL 4.50 - 11.00 09/07 Specimen Type: BLOOD No comment entered. Ordering Provider: ROLDAN RHODES Report Released Date/Time: Sep 06, 2024 01:20 PM Reporting Lab: [address] [address] Performing Lab: [address] [address] [place] CBC AND DIFF (AUTO) ERYTHROCYT ES [#/VOLUME] IN BLOOD BY AUTOMATED COUNT 5.45 10*6/uL 4.23 - 5.66 09/07 Specimen Type: BLOOD No comment entered. Ordering Provider: ROLDAN RHODES Report Released Date/Time: Sep 06, 2024 01:20 PM Reporting Lab: [facility]ITALRMOBI[facility]OSPITALN [address] [address] Performing Lab: [facility]ITALR[facility]BI[facility]OSPITALN [address] [address] [place] CBC AND DIFF (AUTO) HEMOGLOBIN [MASS/VOLU ME] IN BLOOD 16.4 g/dL 12.8 - 17 09/07 Specimen Type: BLOOD No comment entered. Ordering Provider: ROLDAN RHODES Report Released Date/Time: Sep 06, 2024 01:20 PM Reporting Lab: [facility] [address] [address] Performing Lab: [facility] [address] [address] [place] CBC AND DIFF (AUTO) HEMATOCRIT [VOLUME FRACTION] OF BLOOD BY AUTOMATED COUNT 48.6 39.2 - 50.4 09/07 Specimen Type: BLOOD No comment entered. Ordering Provider: ROLDAN RHODES Report Released Date/Time: Sep 06, 2024 01:20 PM Reporting Lab: [facility] [address] [address] Performing Lab: [facility]ITALR[facility]ITALN [address] [address] [place] CBC AND DIFF (AUTO) MCV [ENTITIC VOLUME] BY AUTOMATED COUNT 89.2 fL 82 - 99 09/07 Specimen Type: BLOOD No comment entered. Ordering Provider: ROLDAN RHODES Report Released Date/Time: Sep 06, 2024 01:20 PM Reporting Lab: [facility] [address] [address] Performing Lab: [facility] [address] [address] [place] CBC AND DIFF (AUTO) MCHC [MASS/VOLU ME] BY AUTOMATED COUNT 33.7 g/dL 30.8 - 35.1 09/07 Specimen Type: BLOOD No comment entered. Ordering Provider: ROLDAN RHODES Report Released Date/Time: Sep 06, 2024 01:20 PM Reporting Lab: [facility] [address] [address] Performing Lab: [facility] [address] [address] [place] CBC AND DIFF (AUTO) PLATELETS [#/VOLUME] IN BLOOD BY AUTOMATED COUNT 128 10*3/uL 140 - 360 09/07 L Specimen Type: BLOOD No comment entered. Ordering Provider: ROLDAN RHODES Report Released Date/Time: Sep 06, 2024 01:20 PM Reporting Lab: [address] [address] Performing Lab: [facility] [address] [address] [place] CBC AND DIFF (AUTO) ERYTHROCYT E DISTRIBUTI ON WIDTH [RATIO] BY AUTOMATED COUNT 12.4 12.0 - 16.0 09/07 Specimen Type: BLOOD No comment entered. Ordering Provider: ROLDAN RHODES Report Released Date/Time: Sep 06, 2024 01:20 PM Reporting Lab: [facility] [address] [address] Performing Lab: [facility] [address] [address] [place] CBC AND DIFF (AUTO) MONOCYTES [#/VOLUME] IN BLOOD BY AUTOMATED COUNT 0.57 10*3/uL 0.30 - 1.10 09/07 Specimen Type: BLOOD No comment entered. Ordering Provider: ROLDAN RHODES Report Released Date/Time: Sep 06, 2024 01:20 PM Reporting Lab: [facility] [address] [address] Performing Lab: [facility] [address] [address] [place] CBC AND DIFF (AUTO) MCH [ENTITIC MASS] BY AUTOMATED COUNT 30.1 pg 26.2 - 32.6 09/07 Specimen Type: BLOOD No comment entered. Ordering Provider: ROLDAN RHODES Report Released Date/Time: Sep 06, 2024 01:20 PM Reporting Lab: [facility] [address] [address] Performing Lab: [facility] [address] [address] [place] CBC AND DIFF (AUTO) NEUTROPHIL S/100 LEUKOCYTES IN BLOOD BY AUTOMATED COUNT 48.8 43.7 - 75.8 09/07 Specimen Type: BLOOD No comment entered. Ordering Provider: ROLDAN RHODES Report Released Date/Time: Sep 06, 2024 01:20 PM Reporting Lab: [facility] [address] [address] Performing Lab: [facility] [address] [address] [place] CBC AND DIFF (AUTO) LYMPHOCYTE S/100 LEUKOCYTES IN BLOOD BY AUTOMATED COUNT 38.3 14.0 - 42.3 09/07 Specimen Type: BLOOD No comment entered. Ordering Provider: ROLDAN RHODES Report Released Date/Time: Sep 06, 2024 01:20 PM Reporting Lab: [facility] [address] [address] Performing Lab: [facility] [address] [address] [place] CBC AND DIFF (AUTO) MONOCYTES/ 100 LEUKOCYTES IN BLOOD BY AUTOMATED COUNT 10.5 5.1 - 13.7 09/07 Specimen Type: BLOOD No comment entered. Ordering Provider: ROLDAN RHODES Report Released Date/Time: Sep 06, 2024 01:20 PM Reporting Lab: [facility] [address] [address] Performing Lab: [facility] [address] [address] [place] CBC AND DIFF (AUTO) EOSINOPHIL S/100 LEUKOCYTES IN BLOOD BY AUTOMATED COUNT 1.3 0.4 - 6.8 09/07 Specimen Type: BLOOD No comment entered. Ordering Provider: ROLDAN RHODES Report Released Date/Time: Sep 06, 2024 01:20 PM Reporting Lab: [facility]N [address] [address] Performing Lab: [facility]N [address] [address] [place] CBC AND DIFF (AUTO) BASOPHILS/ 100 LEUKOCYTES IN BLOOD BY AUTOMATED COUNT 0.4 0.1 - 2.0 09/07 Specimen Type: BLOOD No comment entered. Ordering Provider: ROLDAN RHODES Report Released Date/Time: Sep 06, 2024 01:20 PM Reporting Lab: [facility] [address] [address] Performing Lab: [facility] [address] [address] [place] CBC AND DIFF (AUTO) NEUTROPHIL S [#/VOLUME] IN BLOOD BY AUTOMATED COUNT 2.66 10*3/uL 2.20 - 7.60 09/07 Specimen Type: BLOOD No comment entered. Ordering Provider: ROLDAN RHODES Report Released Date/Time: Sep 06, 2024 01:20 PM Reporting Lab: [facility] [address] [address] Performing Lab: [facility]N [address] [address] [place] CBC AND DIFF (AUTO) LYMPHOCYTE S [#/VOLUME] IN BLOOD BY AUTOMATED COUNT 2.09 10*3/uL 1.00 - 3.20 09/07 Specimen Type: BLOOD No comment entered. Ordering Provider: ROLDAN RHODES Report Released Date/Time: Sep 06, 2024 01:20 PM Reporting Lab: [facility]N [address] [address] Performing Lab: [facility] [address] [address] [place] CBC AND DIFF (AUTO) EOSINOPHIL S [#/VOLUME] IN BLOOD BY AUTOMATED COUNT 0.07 10*3/uL 0.03 - 0.44 09/07 Specimen Type: BLOOD No comment entered. Ordering Provider: ROLDAN RHODES Report Released Date/Time: Sep 06, 2024 01:20 PM Reporting Lab: [facility]N [address] [address] Performing Lab: [facility]N [address] [address] [place] CBC AND DIFF (AUTO) BASOPHILS [#/VOLUME] IN BLOOD BY AUTOMATED COUNT 0.02 10*3/uL 0.01 - 0.13 09/07 Specimen Type: BLOOD No comment entered. Ordering Provider: ROLDAN RHODES Report Released Date/Time: Sep 06, 2024 01:20 PM Reporting Lab: [facility] [address] [address] Performing Lab: [facility] [address] [address] [place] CBC AND DIFF (AUTO) IMMATURE GRANULOCYT ES/100 LEUKOCYTES IN BLOOD BY AUTOMATED COUNT 0.7 0.0 - 0.7 09/07 Specimen Type: BLOOD No comment entered. Ordering Provider: ROLDAN RHODES Report Released Date/Time: Sep 06, 2024 01:20 PM Reporting Lab: [facility] [address] [address] Performing Lab: [facility] [address] [address] [place] CBC AND DIFF (AUTO) IMMATURE GRANULOCYT ES [#/VOLUME] IN BLOOD 0.04 10*3/uL 0.00 - 0.06 09/07 Specimen Type: BLOOD No comment entered. Ordering Provider: ROLDAN RHODES Report Released Date/Time: Sep 06, 2024 01:20 PM Reporting Lab: [facility] [address] [address] Performing Lab: [facility] [address] [address] [place] CBC AND DIFF (AUTO) NRBC % 0.0 0.0 - 0.0 09/07 Specimen Type: BLOOD No comment entered. Ordering Provider: ROLDAN RHODES Report Released Date/Time: Sep 06, 2024 01:20 PM Reporting Lab: [facility]N [address] [address] Performing Lab: [facility] [address] [address] [place] CBC AND DIFF (AUTO) NRBC, ABS 0.00 10*3/uL 0.00 - 0.00 09/07 Specimen Type: BLOOD No comment entered. Ordering Provider: ROLDAN RHODES Report Released Date/Time: Sep 06, 2024 01:20 PM Reporting Lab: [address] [address] Performing Lab: [facility] [address] [address] [place] LIPID PANEL FASTING CHOLESTERO L [MASS/VOLU ME] IN SERUM OR PLASMA 126 mg/dL 03/08 Specimen Type: SERUM No comment entered. Ordering Provider: SAE MARES Report Released Date/Time: Nov 28, 2023 09:56 AM Reporting Lab: [address] [address] Performing Lab: [facility] [address] [address] [place] LIPID PANEL FASTING TRIGLYCERI DE [MASS/VOLU ME] IN SERUM OR PLASMA 197 mg/dL 0 - 150 03/08 H Specimen Type: SERUM No comment entered. Ordering Provider: SAE MARES Report Released Date/Time: Nov 28, 2023 09:56 AM Reporting Lab: [address] [address] Performing Lab: [address] [address] [place] LIPID PANEL FASTING CHOLESTERO L IN LDL [MASS/VOLU ME] IN SERUM OR PLASMA BY CALCULATIO N 57 mg/dL 0 - 129 03/08 Specimen Type: SERUM No comment entered. Ordering Provider: SAE MARES Report Released Date/Time: Nov 28, 2023 09:56 AM Reporting Lab: [facility] [address] [address] Performing Lab: [facility] [address] [address] [place] LIPID PANEL FASTING CHOLESTERO L.TOTAL/CH OLESTEROL IN HDL [MASS RATIO] IN SERUM OR PLASMA 4.2 03/08 Specimen Type: SERUM No comment entered. Ordering Provider: SAE MARES Report Released Date/Time: Nov 28, 2023 09:56 AM Reporting Lab: [address] [address] Performing Lab: [facility] [address] [address] [place] LIPID PANEL FASTING CHOLESTERO L IN HDL [MASS/VOLU ME] IN SERUM OR PLASMA 30 mg/dL 40 - 60 03/08 L Specimen Type: SERUM No comment entered. Ordering Provider: SAE MARES Report Released Date/Time: Nov 28, 2023 09:56 AM Reporting Lab: [address] [address] Performing Lab: [facility] [address] [address] [facility] V[facility] Signs Combined list of inpatient and outpatient Vital Signs from Department of Defense and Veterans Affairs, ranging from 12 months to all on record, depending upon the facility. Vital Sign Value Date Comments Source SYSTOLIC BLOOD PRESSURE 139 09/16/2024 08:36:44 [facility] DIASTOLIC BLOOD PRESSURE 86 09/16/2024 08:36:44 [facility] PULSE OXIMETRY 95 09/16/2024 08:36:44 [facility] WEIGHT 274 09/16/2024 08:36:44 [facility] BMI 33 kg/m2 09/16/2024 08:36:44 [facility] 77 09/16/2024 08:36:44 [facility] TEMPERATURE 97.9 09/16/2024 08:36:44 [place] PULSE 91 09/16/2024 08:36:44 [place] RESPIRATION 19 09/16/2024 08:36:44 [place] SYSTOLIC BLOOD PRESSURE 147 08/19/2024 09:25:36 [facility] DIASTOLIC BLOOD PRESSURE 92 08/19/2024 09:25:36 [place] PULSE OXIMETRY 97 08/19/2024 09:25:36 [place] PAIN 9 08/19/2024 09:25:36 [place] TEMPERATURE 97.5 08/19/2024 09:25:36 [place] PULSE 75 08/19/2024 09:25:36 [place] RESPIRATION 18 08/19/2024 09:25:36 [place] SYSTOLIC BLOOD PRESSURE 170 07/06/2024 08:48:14 [facility] DIASTOLIC BLOOD PRESSURE 98 07/06/2024 08:48:14 [place] PULSE OXIMETRY 07 07/06/2024 08:48:14 [place] PAIN 10 07/06/2024 08:48:14 [place] TEMPERATURE 98.1 07/06/2024 08:48:14 [place] PULSE 65 07/06/2024 08:48:14 [place] RESPIRATION 20 07/06/2024 08:48:14 [place] SYSTOLIC BLOOD PRESSURE 125 04/19/2024 15:04:06 [facility] DIASTOLIC BLOOD PRESSURE 79 04/19/2024 15:04:06 [place] PULSE OXIMETRY 94 04/19/2024 15:04:06 [place] WEIGHT 273 04/19/2024 15:04:06 [place] BMI 32 kg/m2 04/19/2024 15:04:06 [place] PULSE 90 04/19/2024 15:04:06 [place] SYSTOLIC BLOOD PRESSURE 146 03/08/2024 09:14:37 [facility] DIASTOLIC BLOOD PRESSURE 97 03/08/2024 09:14:37 [place] PULSE OXIMETRY 96 03/08/2024 09:14:37 [place] WEIGHT 272 03/08/2024 09:14:37 [place] BMI 32 kg/m2 03/08/2024 09:14:37 [place] PULSE 92 03/08/2024 09:14:37 [place] Encounters Combined list of: 1) Encounters from Department of Veterans Affairs facilities going backup to the last 18 months, not all VA inpatient encounters are included; 2) Encounters from the Department of Defense facilities going backup to 280 months. Location Location Details Encounter Type Encounter Number Reason For Visit Attending Provider ADM Date DC Date Status Disposition Source [facility] Encounter [id number] 05/21 [facility] [place] O/P EST MOD 30-39 MIN [id number] Diagnos is: ICD-10- CM M54.50 Low back pain, unspeci fied KATIE MARES F 05/21 [facility] Encounter [id number] KATIE MARES F 05/21 [facility] En[facility] [id number] 05/28 [facility] En[facility] [id number] 05/29 [facility] [place] [id number] 05[place] [facility] Encounter [id number] 06/02 [facility] [id number] 06/02 [facility] En[facility] [id number] 06/05 [facility] [place]/OP EST MAY X REQ PHY/QHP [id number] Diagnos is: ICD-10- CM R11.0 Nausea MARYLU COELLO IC K 06/05 [facility] En[facility] [id number] 06/05 [facility] [id number] 06/12 [facility] [id number] 06/12 [facility] En[facility] [id number] 06/17 [facility] [id number] 06/25 [facility] En[facility] [id number] 06/25 [facility] [place] [place] [id number] [id number] Diagnos is: ICD-10- CM Z71.3 Dietary agency legal counsel ing and surveil EDMAR Watson 06/25 [facility] MTMS BY PHARM ADDL 15 MIN [id number] [id number] Diagnos is: ICD-10- CM E11.9 Type 2 diabete s mellitu s without complic ations LEANDER BECK 06/26 [facility] En[facility] [id number] 07/01 [facility] En[facility] [id number] 07/04 [facility] En[facility] [id number] 07/04 [facility] En[facility] [id number] 07/05 [facility] [place] En[place] [id number] 07/18 [place] O/P EST MOD 30-39 MIN [id number] Diagnos is: ICD-10- CM M54.50 Low back pain, unspeci fied STELEA,CAR MEN F 07/28 [place] S[facility]F C[facility] MNGMENT TRAINING [id number] [id number] Diagnos is: ICD-10- CM M54.51 Vertebr ogenic low back pain HOLA BURROWS 08/01 [place] THERAPEUT[place] EXERCISES [id number] [id number] Diagnos is: ICD-10- CM M54.51 Vertebr ogenic low back pain HOLA BURROWS 08/05 [place] [facility] En[facility] [id number] 08/08 [facility] [place] THERAPEUT[facility] [place] EXERCISES [id number] [id number] Diagnos is: ICD-10- CM M54.51 Vertebr ogenic low back pain SALINA LANGSTON 08/19 [place] [facility] En[facility] [id number] 08/22 [facility] [place] Out[place] En[place] [id number] 08/27 [place] OFF/OP EST MAY X REQ PHY/QHP [id number] [id number] Diagnos is: ICD-10- CM I10 Essenti al (primar y) hyperte nsROSA MARIA Hay 09/16 [place] [facility] [facility] En[facility] [id number] 09/26 [facility] Encounter [id number] 10/07 [facility] [place] MT[place] BY PHARM ADDL 15 MIN [id number] Diagnos is: ICD-10- CM E11.9 Type 2 diabete s mellitu s without complic ations BECKLEANDER AMADOR Francisco J 10/17 [place] [facility] Out[facility] Encounter [id number] 10/21 [facility] [place] PRO PHONE CALL 11-20 MIN [id number] Diagnos is: ICD-10- CM E11.9 Type 2 diabete s mellitu s without complic ations BECKLEANDER AMADOR A 11/03 [place] PRO PHONE CALL 21-30 MIN [id number] Diagnos is: ICD-10- CM E11.9 Type 2 diabete s mellitu s without complic ations BECKLEANDER AMADOR A 11/10 [place] [facility] Out[facility] Encounter [id number] 11/13 [facility] [place] MT[place] BY PHARM ADDL 15 MIN [id number] Diagnos is: ICD-10- CM E11.9 Type 2 diabete s mellitu s without complic ations VISHNU,CAR MEN F 11/27 [place] OFF[place] O/P EST MOD 30 MIN [id number] Diagnos is: ICD-10- CM E78.5 Hyperli pidemia , unspeci fied MYKELLEFrancisco J,CAR DAKSHA F 11/28 [facility] EST [facility] X REQ PHY/QHP [id number] [id number] Diagnos is: ICD-10- CM M54.50 Low back pain, unspeci fied OUMOU,ER IC K 12/11 [facility] Out[facility] Encounter [id number] 12/11 [facility] OFFICE O/P EST MOD 30 MIN [id number] Diagnos is: ICD-10- CM M54.50 Low back pain, unspeci fied MEAGAN,KE MARYFrancisco J C 12/11 [facility] Out[facility] Encounter [id number] 12/14 [facility] Encounter [id number] 12/21 [facility] Out[facility] Encounter [id number] 12/24 [facility] Encounter [id number] 12/24 [facility] Out[facility] Encounter [id number] 12/24 [facility] OFFICE O/P EST MOD 30 MIN [id number] Diagnos is: ICD-10- CM M54.50 Low back pain, unspeci fied STELEA,CAR MEN F 12/28 [place] [facility] Encounter [id number] 12/28 [facility] Encounter [id number] 02/08 [facility] OFF/OP CONSLTJ NEW/EST HI 55 [id number] Diagnos is: ICD-10- CM M54.50 Low back pain, unspeci fied KUPFERSCHM ID,SABA B 02/09 [facility] Out[facility] Encounter [id number] 03/04 [facility] OFFICE O/P EST MOD 30 MIN [id number] Diagnos is: ICD-10- CM R10.9 Unspeci fied abdomin al pain STELEA,CAR MEN F 03/08 [place] [facility] Out[facility] Encounter [id number] 03/10 [facility] Encounter [id number] 03/15 [facility] Out[facility] Encounter [id number] 03/15 [facility] Out[facility] Encounter [id number] 03/19 [facility] OFFICE O/[place] HI 40 MIN [id number] Diagnos is: ICD-10- CM M19.91 Primary osteoar thritis , unspeci fied site KUPFERSCHM ID,SABA B 03/22 [facility] Encounter [id number] 04/05 [facility] Out[facility] Encounter [id number] 04/06 [facility] OFFICE O/P EST HI 40 MIN [id number] Diagnos is: ICD-10- CM M19.91 Primary osteoar thritis , unspeci fied site KUPFERSCHM ID,SABA B 04/06 [facility] Outpatient Encounter [id number] 04/12 [facility] MTMS BY PHARM ADDL 15 MIN [id number] Diagnos is: ICD-10- CM E11.9 Type 2 diabete s mellitu s without complic ations LEANDER BECK 04/14 [place] [facility] Out[facility] Encounter [id number] 04/14 [facility] Out[facility] Encounter [id number] 04/16 [facility] [place] OFF[place] O/P EST MOD 30 MIN [id number] Diagnos is: ICD-10- CM M25.561 Pain in right knee STELEA,CAR MEN F 04/19 [place] [facility] Out[facility] Encounter [id number] 04/23 [facility] COMPRE OPH EXAM EST PT 1/ [id number] Diagnos is: ICD-10- CM H34.811 0 Central retinal vein occls, right eye, with macular edema WELSH,LACE Y J 04/28 [facility] FIT SPECTACLES MULTIFOCAL [id number] Diagnos is: ICD-10- CM Z46.0 Encount er for fit/adj st of spectac les and contact lenses WELSH,LACE Y J 04/28 [facility] Out[facility] Encounter [id number] 1.04/29 [facility] Out[facility] Encounter [id number] 05/13 [facility] Out[facility] Encounter [id number] 05/20 [facility] OFFICE O/P EST MOD 30 MIN [id number] Diagnos is: ICD-10- CM M25.561 Pain in right knee KUPFERSCHM ID,SABA B 05/21 [facility] Out[facility] Encounter [id number] 1.05/21 [facility] Out[facility] Encounter [id number] 05/25 [facility] Outpatient Encounter [id number] 05/31 [facility] [place] BY PHARM ADDL 15 MIN [id number] Diagnos is: ICD-10- CM E11.9 Type 2 diabete s mellitu s without complic ations MAHESHRUDI PECK MEEHAN 06/10 [place] [facility] Outpatient Encounter [id number] 06/10 [facility] [place] PT EVAL MOD COMPLEX 30 MIN [id number] 1BY. 57 Diagnos is: ICD-10- CM M25.569 Pain in unspeci fied knee DANNEN,HOLA HAEL 06/23 [place] THERAPEUT[place] EXERCISES [id number] Diagnos is: ICD-10- CM M25.569 Pain in unspeci fied knee DANNEN,HOLA HAEL 06/28 [place] [facility] Outpatient Encounter [id number] 07/01 [facility] Outpatient Encounter [id number] 1.07/05 [facility] [place] OFF/OP EST FEBRUARY X REQ PHY/QHP [id number] Diagnos is: ICD-10- CM G50.1 Atypica l facial pain OUMOU,MARYLU IC K 07/06 [place] [facility] Outpatient Encounter [id number] 1.07/06 [facility] [place] THERAPEUTI [place] EXERCISES [id number] Diagnos is: ICD-10- CM M25.569 Pain in unspeci fied knee HOLA BURROWS 07/13 [place] [facility] Out[facility] Encounter [id number] 1.07/13 [facility] [place] PRO PHONE CALL 21-30 MIN [id number] 1BY. 00 Diagnos is: ICD-10- CM Z71.89 Other specifi ed agency legal counsel ing KENNETH [place] [facility] Out[facility] Encounter [id number] 1.07/28 [facility] Out[facility] Encounter [id number] 1.08/04 [facility] [place] MTMS BY PHARM ADDL 15 MIN [id number] 1BY. 56 Diagnos is: ICD-10- CM E11.9 Type 2 diabete s mellitu s without complic ations LEANDER BECK [place] [facility] Outpatient Encounter [id number] 1.08/05 [facility] Out[facility] Encounter [id number] 1.08/05 [facility] Out[facility] Encounter [id number] 1.08/06 [facility] [place] OFF/OP EST FEBRUARY X REQ PHY/QHP [id number] Diagnos is: ICD-10- CM M54.50 Low back pain, unspeci fied OUMOU,ER IC K [place] [facility] Out[facility] Encounter [id number] 1.08/19 [facility] Outpatient Encounter [id number] 1.08/20 [facility] [place] THERAPEUTI [place] EXERCISES [id number] 1BY. 26 Diagnos is: ICD-10- CM M25.569 Pain in unspeci fied knee HOLA BURROWSEL 08/24 [place] [facility] Outpatient Encounter [id number] 1.08/26 [facility] OFFICE O/P EST HI 40 MIN [id number] 1. Diagnos is: ICD-10- CM M54.50 Low back pain, unspeci fied KUPFERSCHM ID,SABA B 08/27 [facility] Outpatient Encounter [id number] 1.09/06 [facility] Outpatient Encounter [id number] 1.09/06 [facility] QNHP OL DIG ASSMT&MGMT 5-10 [id number] 1. Diagnos is: ICD-10- CM M25.561 Pain in right knee MIKE GARCIA S 09/08 [facility] OFFICE O/[place] HI 40 MIN [id number] Diagnos is: ICD-10- CM M15.9 Polyost eoarthr itis, unspeci fied RENATO RHODES C 09/16 [place] [facility] Out[facility] Encounter [id number] 1. RENATO RHODES EMMA C 09/16 [facility] En[facility] [id number] 1.09/23 [facility] [place] Outpatient Encounter [id number] 09/23 [place] [facility] QNHP OL DIG ASSMT&MGMT 5-10 [id number] 1. Diagnos is: ICD-10- CM E11.9 Type 2 diabete s mellitu s without complic ations ROME HUNTER 09/23 [facility] OFF[place] O/[place] HI 40 MIN [id number] Diagnos is: ICD-10- CM M15.9 Polyost eoarthr itis, unspeci fied KUPFERSCHM ID,SABA B 09/24 [facility] [place] MTMS BY PHARM PRODUCT HANDLER 15 MIN [id number] Diagnos is: ICD-10- CM E11.9 Type 2 diabete s mellitu s without complic ations LEANDER BECK 10/04 [place] [facility] Outpatient Encounter [id number] 10/04 [facility] Out[facility] Encounter [id number] 10/05 [facility] [place] OFF[place] O/P EST LOW 20 MIN [id number] Diagnos is: ICD-10- CM L60.3 Nail dystrop hy ROSSDREW ES F 10/15 [place] MTMS BY PHARM ADDL 15 MIN [id number] Diagnos is: ICD-10- CM E11.9 Type 2 diabete s mellitu s without complic ations BECKLEANDER DEVI 10/27 [facility] Outpatient Encounter [id number] 11/03 [facility] Outpatient Encounter [id number] 11/04 [facility] SYNCH AUDIO-[place] 40 [id number] Diagnos is: ICD-10- CM M15.9 Polyost eoarthr itis, unspeci fied KUPFERSCHM ID,SABA B 11/04 [facility] Outpatient Encounter [id number] 11/09 [facility] Social History Combined list of available smoking, tobacco, and other social history from Department of Defense and Veterans Affairs facilities. Social History Type Response Date Comment Source Tobacco smoking status [facility] VA-TOBACCO FORMER USER 03/08/2024 [place] History of tobacco use [place] 15 YRS OR MORE 03/08/2024 [place] History of tobacco use [place]AC[place] QUIT 15 YRS OR MORE 03/11/2023 [facility] History of tobacco use VA-TOBACCO FORMER USER 03/27/2022 [facility] History of tobacco use [place]-TOBACCO FORMER USER 12/27/2020 [facility] [facility] History of tobacco use VA-TOBACCO FORMER USER 12/22/2018 [facility] History of tobacco use [place] QUIT 15 YRS OR MORE 03/19/2018 [facility] History of tobacco use QUIT TOBACCO USE > 7 YEARS AGO 05/13/2017 quit 24 yrs ago [facility] History of tobacco use QUIT TOBACCO USE > 7 YEARS AGO 11/15/2015 States he last smoked 21 years ago [facility] History of tobacco use QUIT TOBACCO USE > 7 YEARS AGO 12/07/2009 [facility] Plan of Care List of future care activities from [facility] facilities. Additional future care activities may be listed in the Assessment and Plan section. Date/Time Care Activity Care Activity Detail Facili ty 11/18/2024 AMBULATORY - NONE AMBULATORY - NONE [place] 11/18/2024 AMBULATORY - MEDICINE AMBULATORY - MEDICI [facility] 11/26/2024 AMBULATORY - MEDICINE AMBULATORY - MEDICI [facility] 12/29/2024 AMBULATORY - MEDICINE AMBULATORY - MEDICI [facility] 01/20/2025 AMBULATORY - MEDICINE AMBULATORY - MEDICI [facility] 02/04/2025 AMBULATORY - MEDICINE AMBULATORY - MEDICI [facility] 05/03/2025 AMBULATORY - MEDICINE AMBULATORY - MEDICI [facility] Advance Directives List of completed, amended, or rescinded Advance Directives on record at [facility] facilities. An actual copy of the Directive is not included. Date Advance Directive Provider Source 05/23/2011 ADVANCE DIRECTIVE JUD BROOKS
--- OUTSIDE RECORDS SUMMARY | 2024-11-15 05:47 | XMS_ITS | Encounter Summary ---
Author Name [facility] [place] [facility] [place] [facility] [place] [place] Address [address] [place] [address] Care Team Providers Care Crm Manager Name Role Phone CHANI RHODES Primary [...] [facility] February 03, 2022 [id number] [facility] MEDICAID MEDICAID MEDIC AID Oct 06, 2013 MEDICAI D [id number] EMERITA BAUTISTA PATIENT MEDICARE (WNR) MEDICARE (M) PART A Mar 06, 2015 PART A [id number] EMERITA BAUTISTA PATIENT MEDICARE (WNR) MEDICARE (M) PART B Mar 06, 2015 PART B [id number] [phone] EMERITA BAUTISTA PATIENT MEDICARE (WNR) MEDICARE (M) PART B Mar 06, 2015 PART B [id number] EMERITA BAUTISTA PATIENT MEDICARE (WNR) MEDICARE (M) PART A Mar 06, 2015 PART A [id number] EMERITA BAUTISTA PATIENT MEDICARE (WNR) MEDICARE (M) PART B Mar 06, 2015 PART B [id number] [phone] EMERITA BAUTISTA PATIENT MEDICARE (WNR) MEDICARE (M) PART A Mar 06, 2015 PART A [id number] EMERITA BAUTISTA PATIENT MEDICARE (WNR) MEDICARE (M) PART B Mar 06, 2015 PART B [id number] [phone] EMERITA BAUTISTA PATIENT Selected Encounter This section includes the information on record at [place] for the Encounter. Date/Time Encounter Type Encounter Description Reason Pro vider Source Nov 04, 2024 12:14 PM Outpatient Encounter PRIMARY CARE/MEDICINE I[facility] Encounter Template Text not used by [place] Plan of Treatment: Future Appointments (+ 6 months) and Future Tests (+/- 45 days) The Plan of Treatment section includes future care activities for the patient from all [place] treatmentfacilities. This section includes future appointments and [...] AM AMBULATORY - MEDICINE [facility] [place] [facility] Nov 26, 2024 09:00 AM AMBULATORY - [place]ICINE [place] [facility] [place] [facility] Dec 29, 2024 10:45 AM AMBULATORY - MEDICINE [place] [facility] [place] [facility] Jan 20, 2025 10:00 AM [facility] February 04, 2025 08:00 AM AM[facility]ULATORY - MEDICINE [facility] May 03, 2025 10:00 AM AMBULATORY - MEDICINE [facility] [place] [facility] Active, Pending, and Scheduled Orders This section [...] Chemistry Order AMPHETAMINES SCREEN PANEL UR[facility] Sep 21, 2024 12:00 AM Laboratory - Chemistry Order ALCOHOL, ETHYL URINE PANEL URINE (DRUG) [facility] Sep 21, 2024 12:00 AM Laboratory - Chemistry Order FENTANYL SCREEN PANEL URINE (DRUG) [facility] Sep 21, 2024 12:00 AM Laboratory - Chemistry Order BENZODIAZEPINES SCREEN PANEL URINE (DRUG) [facility] Sep 21, 2024 12:00 AM Laboratory - Chemistry Order BUPRENORPHINE SCREEN PANEL URINE (DRUG) [facility] Sep 21, 2024 12:00 AM Laboratory - Chemistry Order CANNABINOIDS SCREEN PANEL URINE (DRUG) [facility] Sep 21, 2024 12:00 AM Laboratory - Chemistry Order COCAINE SCREEN PANEL URINE (DRUG) [facility] Sep 21, 2024 12:00 AM Laboratory - Chemistry Order METHADONE SCREEN URINE [facility] Sep 21, 2024 12:00 AM Laboratory - Chemistry Order OPIATES SCREEN PANEL URINE (DRUG) [facility] Sep 21, 2024 12:00 AM Laboratory - Chemistry Order OXYCODONE SCREEN PANEL URINE (DRUG) [facility] Social History: Smoking Status (Most current) [...] 11, 2023 08:30 AM VA-TOBACCO FORMER USER [facility] Tobacco Use History This section includes a history of the smoking, or tobacco-related health factors, that were collected on or before the date of the Encounter. The data comes from the [place] facility where the Encounter took place. Date/Time Smoking Status/Tobacco Use Comment F acility Mar 11, 2023 08:30 AM [place]-TOBACCO QUIT 15 YRS OR [facility] Dec 27, 2020 02:00 PM [place]-TO[place]ACCO FOR[facility]ER [facility] Dec 27, 2020 02:00 PM [place]-TOBACCO QUIT 15 YRS OR MORE [facility] Advance Directives: All historical and current [...] Date/Time Encounter Note(s) Provider Source Nov 04, 2024 12:21 PM ADDENDUM: LOCAL TITLE: Addendum STANDARD TITLE: ADDENDUM DATE OF NOTE: NOV 04, 2024@12:21:21 ENTRY DATE: NOV 04, 2024@12:21:22 AUTHOR: NADINE ALVAREZ COSIGNER: URGENCY: STATUS: COMPLETED Adding PCP to review and advise. /lora/ NADINE ALVAREZ RN REGISTERED NURSE Signed: 11/04/2024 12:21 Receipt Acknowledged By: 11/04/2024 19:03 /lora/ JASMYNE SCHMITZ CERTIFIED NURSE PRACTITIONER --- Original Document --- 11/04/24 WALK-IN NOTE PRIMARY CARE (T): <====Click to Start [facility] presents to the Primary Care clinic with the following request: [ X ]Medication Renewal/Refill [ ]Consultation with Team RN [ ]Symptoms [ ]Other [facility] states they are: [ ]Waiting [ X ]Not Waiting No Walk in visit scheduled with PACT Nurse [ X ] At this encounter the 's demographics were verified. [ X ] At this encounter the 's Insurance information was verified. [ X ] At this encounter the below scheduled visits for the were discussed and appointment reminder card was offered. 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 REGULATORY ASSOCIATE ON FRIDAY - PLEASE /lora/ GRACIELA CASSIDY ADVANCE ARTIST CONSULTANT Signed: 11/04/2024 12:15 Receipt Acknowledged By: 11/04/2024 12:44 /es/ PEDRO STEWART LPN LPN 11/04/2024 12:21 /lora/ NADINE ALVAREZ RN REGISTERED NURSE NADINE ALVAREZ Nov 04, 2024 12:14 PM PRIMARY CARE NOTE: LOCAL TITLE: WALK-IN NOTE PRIMARY CARE (T) STANDARD TITLE: PRIMARY CARE NOTE DATE OF NOTE: NOV 04, 2024@12:14 ENTRY DATE: NOV 04, 2024@12:14:20 AUTHOR: GRACIELA CASSIDY EXP COSIGNER: URGENCY: STATUS: COMPLETED WALK-IN NOTE PRIMARY CARE (T) Has ADDENDA <====Click to Start [facility] [place] presents to the Primary Care clinic with the following request: [ X ]Medication Renewal/Refill [ ]Consultation with Team RN [ ]Symptoms [ ]Other The [place] states they are: [ ]Waiting [ X ]Not Waiting No Walk in visit scheduled with PACT Nurse [ X ] At this encounter the [place]'s demographics were verified. [ X ] At this encounter the [place]'s Insurance information was verified. [ X ] At this encounter the below scheduled visits for the were discussed and appointment reminder card was offered. Future appointments: 11/04/2024 15:00 NHM VVC PAIN MD 2 11/18/2024 09:30 SPR V01 CRH LIVER 02 P 11/26/2024 09:00 SPR PHONE PHARM PACT 2 01/20/2025 10:00 CWM/SO/PACT 7 02/04/2025 08:00 SPR PODIATRY 1 05/03/2025 10:00 NHM OPTOMETRY 3 NEDS A REFILL ON HIS [employer]ATORY ASSOCIATE ON FRIDAY - PLEASE /lora/ GRACIELA CASSIDY ADVANCE ARTIST CONSULTANT Signed: 11/04/2024 12:15 Receipt Acknowledged By: 11/04/2024 12:44 /es/ PEDRO STEWART LPN LPN 11/04/2024 12:21 /lora/ NADINE ALVAREZ RN REGISTERED NURSE 11/04/2024 ADDENDUM STATUS: COMPLETED Adding PCP to review and advise. /lora/ NADINE ALVAREZ RN REGISTERED NURSE Signed: 11/04/2024 12:21 Receipt Acknowledged By: * AWAITING SIGNATURE * CHANI RHODES VICKI M [place]
--- OUTSIDE RECORDS SUMMARY | 2024-11-15 05:47 | XMS_ITS ---
Author Name [facility] [place] [facility] [place] [facility] [place] Address [address] [place] [address] Care Team Providers Care Benzene Worker Name Role Phone CHANI RHODES Primary Care [...] to Policy Zayas [employer] DENTAL DENTAL INSURANCE [facility] February 03, 2022 [id number] EMERITA BAUTISTA PATIENT [facility] MEDICAID MEDICAID MEDIC AID Oct 06, 2013 MEDICAI D [id number] EMERITA BAUTISTA PATIENT MEDICARE (WNR) MEDICARE (M) PART A Mar 06, 2015 PART A [id number] [phone] EMERITA BAUTISTA PATIENT MEDICARE (WNR) MEDICARE (M) PART B Mar 06, 2015 PART B [id number] [phone] EMERITA BAUTISTA PATIENT MEDICARE (WNR) MEDICARE (M) PART B Mar 06, 2015 PART B [id number] EMERITA BAUTISTA PATIENT MEDICARE (WNR) MEDICARE (M) PART A Mar 06, 2015 PART A [id number] [phone] EMERITA BAUTISTA PATIENT MEDICARE (WNR) MEDICARE (M) PART B Mar 06, 2015 PART B [id number] EMERITA BAUTISTA PATIENT MEDICARE (WNR) MEDICARE (M) PART B Mar 06, 2015 PART B [id number] [phone] EMERITA BAUTISTA PATIENT MEDICARE (WNR) MEDICARE (M) PART A Mar 06, 2015 PART A [id number] [phone] EMERITA BAUTISTA PATIENT Selected Encounter This section includes the information on record at [place] for the Encounter. Date/Time Encounter Type Encounter Description Reason Provider Source Nov 04, 2024 03:00 PM SYNCH AUDIO-VIDEO EST HI [facility] ICD-10-CM M15.9 Polyosteoarthriti s, unspecified KUPFERSCHMID,S ETH B IHE Encounter Template Text not used by [place] Assessments - Encounter Diagnoses This section includes the primary and secondary diagnoses documented for the Encounter. Date/Time Primary/Secondary Diagnosis Diagnosis Name Provider Source Nov 04, 2024 03:53 PM PRIMARY Polyosteoarthritis, unspecified KUPFERSCHMID, SABA B PA [facility] [place] [facility] Nov 04, 2024 03:53 PM SECONDARY Major depressive disorder, recurrent, moderate KUPFERSCHMID, SABA B PA [facility] [place] [facility] Nov 04, 2024 03:53 PM SECONDARY Other intervertebral disc disorders, lumbar region KUPFERSCHMID, SABA B PA [facility] [place] [facility] Nov 04, 2024 03:53 PM SECONDARY Type 2 diabetes mellitus with diabetic neuropathy, unsp KUPFERSCHMID, SABA B PA [facility] [place] [facility] Plan of Treatment: Future Appointments [...] 18, 2024 09:30 AM AMBULATORY - MEDICINE [facility] Nov 26, 2024 09:00 AM AMBULATORY - MEDICINE [facility] [place] [facility] Dec 29, 2024 10:45 AM AMBULATORY - MEDICINE [facility] [place] [facility] Jan 20, 2025 10:00 AM AMBULATORY - MEDICINE [facility] February 04, 2025 08:00 AM AMBULATORY - MEDICINE [facility] May 03, 2025 10:00 AM AMBULATORY - MEDICINE PA C [facility] [place] [facility] Active, Pending, and Scheduled Orders [...] ALCOHOL, ETHYL URINE PANEL URINE (DRUG) SP PA [facility] [place] [facility] Sep 21, 2024 12:00 AM Laboratory - Chemistry Order AMPHETAMINES SCREEN PANEL URINE (DRUG) SP PA [facility] [place] [facility] Sep 21, 2024 12:00 AM Laboratory - Chemistry Order FENTANYL SCREEN PANEL URINE (DRUG) SP PA [facility] [place] [facility] Sep 21, 2024 12:00 AM Laboratory - Chemistry Order BENZODIAZEPINES SCREEN PANEL URINE (DRUG) SP PA [facility] [place] [facility] Sep 21, 2024 12:00 AM Laboratory - Chemistry Order BUPRENORPHINE SCREEN PANEL URINE (DRUG) SP PA [facility] [place] [facility] Sep 21, 2024 12:00 AM Laboratory - Chemistry Order CANNABINOIDS SCREEN PANEL URINE (DRUG) SP PA [facility] [place] [facility] Sep 21, 2024 12:00 AM Laboratory - Chemistry Order COCAINE [facility]CREEN [facility]EL [facility] [place] [facility] Sep 21, 2024 12:00 AM Laboratory - Chemistry Order OPIATES SCREEN PANEL URINE (DRUG) [facility] Sep 21, 2024 12:00 AM Laboratory - Chemistry Order OXYCODONE SCREEN PANEL URINE (DRUG) SP [facility] Sep 21, 2024 12:00 AM Laboratory - Chemistry Order METHADONE SCREEN URINE SP [facility] Social History: Smoking Status (Most current) [...] 11, 2023 08:30 AM PA-TOBACCO FORMER USER [facility] Tobacco Use History This section includes a history of the smoking, or tobacco-related health factors, that were collected on or before the date of the Encounter. The data comes from the [place] facility where the Encounter took place. Date/Time Smoking Status/Tobacco Use Comment F acility Mar 11, 2023 08:30 AM PA-TOBACCO QUIT 15 YRS OR MORE [facility] Dec 27, 2020 02:00 PM VA-TOBACCO FORMER USER [facility] Dec 27, 2020 02:00 PM PA-TOBACCO QUIT 15 YRS OR MORE [facility] Advance Directives: All historical and current [...] Source May 23, 2011 ADVANCE DIRECTIVE JUD RBOOKS Encounter Notes: All associated encounter notes This section contains the clinical notes associated to the Encounter. Date/Time Encounter Note(s) Provider Source Nov 04, 2024 03:50 PM ACCOUNTING OF DISCLOSURES NOTE: LOCAL TITLE: STATE PRESCRIPTION DRUG MONITORING PROGRAM STANDARD TITLE: ACCOUNTING OF DISCLOSURES NOTE DATE OF NOTE: NOV 04, 2024@15:50:59 ENTRY DATE: NOV 04, 2024@15:50:59 AUTHOR: SABA MORA EXP COSIGNER: URGENCY: STATUS: COMPLETED [facility] was submitted by Saba Mora MD. The clinical justification for this PDMP query is to review controlled substances prescribed outside of the [place], and any additional information that may become available, as an important component of standard clinical care, and in accordance with [facility] policy. Patient information was shared with the [facility] [employer] [place]. No prescription(s) for controlled substances outside the [place] were found in the last 90 days. /lora/ SABA MORA MD PHYSICIAN Signed: 11/04/2024 15:53 SABA MORA PA [facility] [place] [facility] Nov 04, 2024 03:01 PM PAIN MEDICINE OUTPATIENT NOTE: LOCAL TITLE: PAIN CLINIC NOTE STANDARD TITLE: PAIN MEDICINE OUTPATIENT NOTE DATE OF NOTE: NOV 04, 2024@15:01 ENTRY DATE: NOV 04, 2024@15:01:13 AUTHOR: SABA MORA EXP COSIGNER: URGENCY: STATUS: COMPLETED CURRENT ======= Hip pain wakes him at night. Knee surgery postponed to November 15 (partial replacement). Patches are working but sometimes needs more. Gabapentin remains helpful, 1 in morning, 2 at night. More causes drowsiness. Went to [facility] with his . ASSISTIVE DEVICES Cane PAIN-RELATED PROBLEMS DDD DJD, [...] daughter graduating HS; son HS poncho, excellent nba player); 3 grown daughters and grandchildren in [facility]. 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 FAMILY HISTORY SUBSTANCE USE HISTORY Tobacco: None ETOH: None; stopped 20 years ago. Marijuana: None. Illicit drugs: Past, including pills. = ASSESSMENT and PLAN = 58 year old [facility] , 70% service-connected for musculoskeletal injuries, with DDD and DJD affecting his low back and right knee; he has mid-back and neck pain also. 11/04/2024 Doing reasonably well for winter and cold. Optimistic. PAIN - DJD knees and hips -Butrans 15 mcg/hour (increase) -Vicodin 5 mg bid -Gabapentin 100 mg am and 200 mg qhs ORTHO Surgery Nov 15 MOOD Therapy at [facility] Applying for SSDI Does not want meds at this time. 09/24/2024 Much improvement. PAIN - DJD knees and hips -Butrans 15 mcg/hour (increase) -Vicodin 5 mg bid -Gabapentin 100 mg am and 200 mg qhs MH Getting counseling , which is a step forward for [place]. ORTHO Appt next week MOOD, QUALITY of LIFE Pain diminishess his enjoyment of family, he is not able to be active, he would like to retire due to pain. His mood is depressed because of pain. GOALS Improve mood, increase ability to enjoy family life, help be able to return to spiritism activities. This visit included supportive listening, education about pain neuroscience, counseling, coaching, and shared medical decision making for more than 30 minutes. [place] repeated the plan back to me and had no further questions at end of appointment. APPOINTMENT LENGTH: 30 minutes (Includes time with as well as review of appropriate notes, consults, results, PDMP, etc, entering orders, and documenting encounter. FOLLOW-UP: 6 weeks Any quotations may not be exact and are intended to convey the effect of what the [place] was saying. 11/18/2024 09:30 SPR V01 [facility] LIVER 02 P 11/26/2024 09:00 SPR PHONE PHARM PACT 2 01/20/2025 10:00 CWM/SO/PACT 7 02/04/2025 08:00 SPR PODIATRY 1 05/03/2025 10:00 NVM OPTOMETRY 3 MEDICATION and RECONCILIATION Active Outpatient Medications (including [...] BEDTIME Indication: FOR HIGH CHOLESTEROL 4) BUPRENORPHINE 15MCG/HR PATCH APPLY 1 PATCH TO SKIN EVERY 5 ACTIVE DAYS (REMOVE PATCH BEFORE APPLYING A NEW PATCH) Indication: FOR SEVERE CHRONIC PAIN Yes 5) CARBOXYMETHYLCELLULOSE NA 0.5% OPH SOLN INSTILL 1 DROP INTO ACTIVE EACH EYE FOUR TIMES A DAY Indication: FOR DRY EYE 6) CHOLECALCIF 50MCG (D3-2,000UNIT) TAB TAKE ONE TABLET BY ACTIVE MOUTH ONCE DAILY FOR VITAMIN SUPPLEMENTATION Indication: FOR VITAMIN D DEFICIENCY 7) EMPAGLIFLOZIN 25MG TAB TAKE ONE TABLET BY MOUTH ONCE DAILY ACTIVE Indication: FOR TYPE 2 DIABETES MELLITUS 8) GABAPENTIN 300MG CAP TAKE TWO CAPSULES BY MOUTH THREE TIMES ACTIVE A DAY Indication: FOR NERVE PAIN 9) GLUCOSE 4GM CHEW TAB CHEW FOUR TABLETS BY MOUTH NEEDED ACTIVE Indication: FOR LOW BLOOD SUGAR 10) GLUCOSE SENSOR DEXCOM G7 USE 1 SENSOR DIRECTED EVERY 10 ACTIVE (S) DAYS 11) INSULIN,ASPART(EQV-NOVLG)100UN/ ML FLXPEN INJECT 27 UNITS ACTIVE SUBCUTANEOUSLY THREE TIMES A DAY BEFORE MEALS INJECT 15 MINUTES BEFORE MEALS IF MEAL SKIPPED SKIP THE DOSE Indication: FOR DIABETES 12) INSULIN,GLARGINE-YFGN 100UNIT/ML PEN 3ML INJECT 46 UNITS ACTIVE SUBCUTANEOUSLY TWICE DAILY Indication: FOR DIABETES 13) LIDOCAINE 5% PATCH APPLY 1 PATCH TOPICALLY ONCE DAILY ACTIVE NEEDED (LEAVE PATCH ON FOR 12 HOURS, THEN REMOVE PATCH) Indication: BACK PAIN 14) LISINOPRIL 5MG TAB TAKE ONE TABLET BY MOUTH ONCE DAILY TO ACTIVE CONTROL BLOOD PRESSURE 15) METFORMIN HCL 750MG 24HR SA TAB TAKE ONE TABLET BY MOUTH ACTIVE ONCE DAILY Indication: FOR TYPE 2 DIABETES MELLITUS 16) TIRZEPATIDE 5MG/0.5ML INJ,SOLN PACK,4 INJECT 5MG/0.5ML ACTIVE SUBCUTANEOUSLY WEEKLY Indication: DIABETES ACTIVE PROBLEMS Active problems - Computerized Problem List is the source for the followin. Obstructive sleep apnoea of adult 2. Long-term current use of opiate analgesic drug 3. Obesity 4. Osteoarthritis of multiple joints 5. Degeneration of lumbar intervertebral disc 6. Cervical radiculopathy 7. HTN - Hypertension ([facility] [id number]) 8. Allergic Rhinitis ([facility] [id number]) 9. Vitamin D Deficiency ([facility] [id number]) 10. Hyperlipidemia ([facility] [id number]) 11. Fatty liver 12. Depression 13. History of surgery 14. Diabetic neuropathy 15. Erectile dysfunction 16. Type 2 diabetes mellitus 17. Under care of multiple providers 18. Bilateral hearing loss 19. Bilateral tinnitus [facility] ([facility]) Standard Documentation [facility] Clinician Resources Only: E911 (Emergency Call Relay Center): [phone] National [place] Crisis Line - 988 then press #1. [facility] Suicide Coordinator [phone], Ext. [phone]; Back-up Ext. [phone] [place] Police, RONALShy, Astrid [phone] Introduction: Visit is being conducted by [place] [facility]. identified with 2 identifiers: [X] Full Name [X] Date of [ ] PA ID Card Emergency Plan: confirmed and/or provided the following information in case of emergency or technology failure. PATIENT PHONE - PHONE NUMBER [CELLULAR] - Is patient phone number correct, if not, enter below: [place]'s phone number: EMERITA BAUTISTA [address], [place], [address] [place]'s present location and address for appointment: Home 's emergency contact name and phone number: Listed [place] reported that location is private and safe: Yes Informed Consent: informed of the risks and benefits of Telehealth video care. [place] has the right to refuse video services. If refuses video visit, a cdri-bv-vots visit will be scheduled. [place] verbalized consent for this video visit: Yes [place] provided consent for any other persons present for visit: No If yes, who and relationship to patient: Secure visit: Visit was locked for security and privacy:Yes /lora/ SABA MORA MD PHYSICIAN Signed: 11/04/2024 15:53 SABA MORA PA [facility]
[2024-11-15 07:01] LABS: Glucose, Whole Blood 220 mg/dL (60-115)
[2024-11-15] MEDS: Lactated Ringers 1,000 ML 100 ML IVCONT (07:21)
[2024-11-15] MEDS: ceFAZolin Sodium/Dextrose,Iso 2 GM/50 ML PIGGYBACK IV (07:50)
[2024-11-15] MEDS: Acetaminophen 1,000 MG/100 ML PIGGYBACK 400 MG IV (08:00)
--- NOTE | 2024-11-15 08:40 | PM.OP ---
Brief Operative Note Date of Service: 11/15/24 Pre-op diagnosis: Left knee medial meniscus tear, left knee degenerative joint disease Post-op diagnosis: same Procedure: Left knee diagnostic arthroscopy with left knee arthroscopic partial medial meniscectomy, left knee arthroscopic chondroplasty of the undersurface of the patella as well as the trochlear groove Implants: none Surgeon: Allen Soni MD Anesthesia: GLMA Was an Modeling And Simulation Analyst used for this Procedure?: No Estimated blood loss (mL): 10 Pathology: none sent Condition: stable Disposition: PACU
--- NOTE | 2024-11-15 08:41 | P.OP_ITS ---
Operative Note Operative Note Date of Service: 11/15/24 Narrative: After the patient was identified as Stephane Rivera and his left knee was initialed by myself they were brought to the operating room where general anesthesia was induced by the anesthesiologist in routine fashion. The patient was given 2 g of IV Ancef preoperatively for infection prophylaxis. The patient's left lower extremity was prepped and draped in sterile fashion. A formal time-out was completed. Marcaine was injected into the planned incision sites as well as the patient's left knee joint. A #11 scalpel blade was used to make an anterolateral portal 1 cm proximal to the joint line and 1 cm lateral to the patellar tendon. Blunt trocar technique was used to enter the suprapatellar pouch with the knee in extension. Diagnostic arthroscopy showed multiple bands of thickened plica which would be excised at the end of the procedure. There were no loose bodies or abnormalities found in either the medial or lateral gutters. The articular surface of the patella showed diffuse grades 2 and 3 degenerative changes. The trochlear groove articular surface showed diffuse grades 3 and 4 degenerative changes. The patient's knee was flexed to 45 degrees and a valgus force was placed upon it. The medial compartment was entered. An anteromedial portal was made 1 cm proximal to the joint line and 1 cm medial to the patellar tendon. Probing of the medial meniscus showed a radial tear of the anterior horn. A partial medial meniscectomy was performed using the arthroscopic shaver. Following the partial meniscectomy the remainder of the meniscus tissue was stable. There were diffuse grade 1 degenerative changes of the medial femoral condyle as well as grade 1 degenerative changes of the medial tibial plateau. The patient's knee was placed into a neutral position. There was no injury to the anterior cruciate ligament. The patient's knee was then placed in the figure of 4 position and the lateral compartment was entered. There was no evidence of lateral meniscus tearing. There were minimal degenerative changes of the lateral femoral condyle and lateral tibial plateau. The patient's knee was once again brought into extension and the suprapatellar pouch was entered. The arthroscopic shaver and the ArthroCare Wand were used to excise the thickened bands of plica. The undersurface of the patella and the articular surface of the trochlear groove were then made smooth using the arth roscopic shaver. The knee joint was irrigated and then drained. All arthroscopic instruments were removed. The 2 portals were closed with 3-0 nylon interrupted suture. The knee joint was injected with Marcaine. Dry sterile dressing and Crow bandages were placed over the patient's knee. The patient was awoken and extubated in the operating room. The patient was transferred to the recovery room in stable condition.
[2024-11-15] MEDS: cefTRIAXone sodium 1 GM VIAL IVPUSH (08:46)
[2024-11-15] MEDS: fentaNYL citrate/PF 100 MCG/2 ML VIAL 50 MCG IVPUSH ×4 (08:50→09:20)
== END 2024-11-15 10:43 | disposition home or self-care (01) ==
PROVIDERS: Visit Provider Orthopaedic Surgery
PROC: (CPT 29870; principal; 2024-11-15 07:30)
DX: S83.242A Other tear of medial meniscus, current injury, left knee, initial encounter (principal); X58.XXXA Exposure to other specified factors, initial encounter; Y93.9 Activity, unspecified; Y92.9 Unspecified place or not applicable; Y99.9 Unspecified external cause status; M17.12 Unilateral primary osteoarthritis, left knee; M25.562 Pain in left knee; M23.52 Chronic instability of knee, left knee; M67.52 Plica syndrome, left knee; I10 Essential (primary) hypertension; E11.9 Type 2 diabetes mellitus without complications; Z79.4 Long term (current) use of insulin; Z79.85 Long-term (current) use of injectable non-insulin antidiabetic drugs; Z79.899 Other long term (current) drug therapy; Z96.651 Presence of right artificial knee joint; Z98.890 Other specified postprocedural states; Z87.891 Personal history of nicotine dependence
CPT/HCPCS: 29881; 82947; J0131; J0171; J0690; J0696; J1100; J1885; J2003; J2405; J2704; J2795; J3010

== ENCOUNTER → 2024-11-15 05:41 | Outpatient (BNV) | payer OTHER, SELFPAY | PROVIDERS: Visit Provider Orthopaedic Surgery | DX: S83.242A Other tear of medial meniscus, current injury, left knee, initial encounter (principal) | CPT/HCPCS: 29881 ==

== ENCOUNTER 2024-11-30 13:50 | Outpatient (AMB) | payer OTHER, SELFPAY ==
--- NOTE | 2024-11-30 14:10 | A.OFFVIS_ITS ---
Intake Visit Reasons: PO LT knee 11/15/24 DR Intake Note: Stephane is a 59 year old male who presents today postoperatively after undergoing a left knee arthroscopy on 11/15/24. The patient reports mild discomfort in his left knee. He denies any fevers or chills. He continues with his home stretching program. Allergies No Known Allergies Allergy (Verified 11/30/24 14:11) Medication List - Last Reconciled 11/30/24 by Allen Soni MD acetaminophen 1,000 mg PO TID PRN acetaminophen 650 mg PO TID PRN atorvastatin 80 mg PO BEDTIME buprenorphine 10 mcg/hour 1 patch transdermal Q5D buprenorphine 5 mcg/hour 1 patch transdermal Q5D carboxymethylcellulose sodium 0.5% 1 drp ophthalmic (eye) QID cholecalciferol (vitamin D3) 50 mcg PO DAILY cyclobenzaprine 10 mg PO BID empagliflozin 25 mg PO DAILY gabapentin 600 mg PO TID hydrocodone-acetaminophen 5-325 mg 1 tab PO BID PRN insulin aspart U-100 (Novolog FlexPen U-100 Insulin aspart) 27 units subcut TID insulin glargine 44 units subcut BID lidocaine 5% 1 patch topical DAILY lisinopril 5 mg PO DAILY oxycodone 5 mg PO Q6H PRN semaglutide 0.5 mg subcut QWEEK PFSH Medical History BMI 32.0-32.9,adult HTN (hypertension) Diabetes Surgical History History of surgery History of penile implant Hx of appendectomy Hx of cholecystectomy History of foot surgery Hx of arthroscopy of left knee History of total right knee replacement Social History Are you a primary congregational care pastor to a significant other at home: No Do you presently have visiting nurse or other home services: No Patient Tobacco Use Status: Former Tobacco user Tobacco use type: Cigarette Physical Exam Extrem Other: Left knee examination shows that the surgical incisions healing well, no erythema, minimal crepitus with range of motion, no instability Assessment & Plan Assessment & Plan (1) Left knee pain: Code(s): M25.562 - Pain in left knee Category: Medical Plan Mr. Rivera is doing well after undergoing left knee arthroscopic surgery on 11/15/2024. His sutures were removed and Steri-Strips placed over his incisions. He will gradually progress to activities as tolerated. He will contact me prior to his follow-up appointment in 2 months should any questions or concerns arise. Feel free to call me at any time should questions regarding his orthopedic management arise. Orders: Referrals Pain Management Referral M25.561 - Pain in right knee, M54.50 - Low back pain, unspecified Coding Level of Care Code Global (50869) Diagnoses Left knee pain M25.562
--- OUTSIDE RECORDS SUMMARY | 2024-11-30 17:14 | XMS_ITS | Clinical Summary ---
Author Organization [employer] [facility] ity Address [address] [place] [address] Care Team Providers Care Campaign Developer Name Role Phone Unavailable Primary Care Provider [...] DTaP,Tdap,and Td Vaccines (1 - Tdap) 1983 Pneumococcal Vaccine: 50+ Ye ars (1 of 1 - PCV) 2014 Zoster Vaccines (1 of 2) 2014 Cholesterol Screening (Lipid Panel) 11/04/2023 Colorectal Cancer Screening: Colonoscopy 11/04/2023 Depression Screening 11/04/2023 HIV Screening 11/04/2023 Hepatitis C Screening 11/04/2023 Social Influencers of Health Screening 11/04/2023 COVID-19 Vaccine (1 - 2023-2 5 season) 2024 Influenza Vaccine [...] patient's age to complete this topic Meningococcal B Vacine Aged Out No lo nger eligible based on patient's age to complete [...]
--- OUTSIDE RECORDS SUMMARY | 2024-11-30 17:15 | XMS_ITS | Encounter Summary ---
Author Name [facility] [place] Address [address] [place] [address] Care Team Providers Care Cessation Systems Outreach Specialist Name Role Phone CHANI RHODES Primary [...] [facility] February 03, 2022 [id number] EMERITA BAUTISTA PATIENT [facility] MEDICAID MEDICAID MEDIC AID Oct 06, 2013 MEDICAI D [id number] EMERITA BAUTISTA PATIENT MEDICARE (WNR) MEDICARE (M) PART A Mar 06, 2015 PART A [id number] EMERITA BAUTISTA PATIENT MEDICARE (WNR) MEDICARE (M) PART B Mar 06, 2015 PART B [id number] [phone] EMERITA BAUTISTA PATIENT MEDICARE (WNR) MEDICARE (M) PART B Mar 06, 2015 PART B [id number] [phone] EMERITA BAUTISTA PATIENT MEDICARE (WNR) MEDICARE (M) PART A Mar 06, 2015 PART A [id number] [phone] EMERITA BAUTISTA PATIENT MEDICARE (WNR) MEDICARE (M) PART B Mar 06, 2015 PART B [id number] [phone] EMERITA BAUTISTA PATIENT MEDICARE (WNR) MEDICARE (M) PART A Mar 06, 2015 PART A [id number] EMERITA BAUTISTA PATIENT Selected Encounter This section includes the information on record at NH for the Encounter. Date/Time Encounter Type Encounter Description Reason Pro vider Source Nov 25, 2024 02:57 PM Outpatient Encounter COMMUNITY CARE CONSULT IHE Encounter Template Text not used by [place] Plan of Treatment: Future Appointments (+ 6 months) and Future Tests (+/- 45 days) The Plan of Treatment section includes future care activities for the patient from all [place] treatmentfacilities. This section includes future appointments and future orders which are active, pending or scheduled. Future Appointments This section includes appointments that were scheduled to occur 6 months from the date of the Encounter, up to a maximum of 20 appointments. The data comes from all [place] treatment facilities. Appointment Date/Time Appointment Type Appointme nt Facility Name Nov 30, 2024 12:00 PM AMBULATORY - MEDICINE [place] [facility] Dec 03, 2024 10:30 AM AMBULATORY [facility]AB [facility] Dec 29, 2024 10:45 AM AMBULATORY - MEDICINE [place] [facility] [place] [facility] Jan 11, 2025 12:00 PM AMBULATORY - MEDICINE [place] [facility] [place] [facility] Jan 20, 2025 10:00 AM AM[facility]ULATORY - MEDICINE [facility] February 04, 2025 08:00 AM [facility] February 17, 2025 11:00 AM AMBULATORY - NONE [place] [facility] [place] [facility] February 17, 2025 11:00 AM AM[place]UL[place]ORY - [place]IC[place] [facility] February 17, 2025 11:05 AM AMBULATORY - MEDICINE [place] [facility] [place] [facility] May 03, 2025 10:00 AM AMBULATORY - MEDICINE [place] [facility] [place] [facility] Active, Pending, and Scheduled Orders This section includes a listing of several types of active, pending, and scheduled orders, including clinic medications orders, diagnostic test orders, procedure orders and consult orders; where the start date of the order is 45 days before the date of the Encounter or 45 days after the date of theEncounter. The data comes from all [place] treatment facilities. Test Date/Time Test Type Test Details Facility Name Nov 18, 2024 09:52 AM Procedure Order FIBROSCAN CP FIBROSCAN (OUTPT) Proc Glaze Maker's Roque [place] Social History: Smoking Status (Most current) and [...] Facil ity Mar 11, 2023 08:30 AM NH-TOBACCO FORMER USER [facility] Tobacco Use History This section includes a history of the smoking, or tobacco-related health factors, that were collected on or before the date of the Encounter. The data comes from the [place] facility where the Encounter took place. Date/Time Smoking Status/Tobacco Use Comment F acility Mar 11, 2023 08:30 AM NH-TOBACCO QUIT 15 YRS OR MORE [facility] Dec 27, 2020 02:00 PM VA-TOBACCO FORMER USER [place] [facility] [facility] Dec 27, 2020 02:00 PM [facility]-TOBACCO QUIT [facility] YRS OR [facility] Advance Directives: All [...] Encounter. Date/Time Encounter Note(s) Provider Source Nov 25, 2024 03:47 PM ADDENDUM: LOCAL TITLE: Addendum STANDARD TITLE: ADDENDUM DATE OF NOTE: NOV 25, 2024@15:47:40 ENTRY DATE: NOV 25, 2024@15:47:41 AUTHOR: NADINE ALVAREZ EXP COSIGNER: URGENCY: STATUS: COMPLETED [facility] /lora/ NADINE ALVAREZ RN REGISTERED NURSE Signed: 11/25/2024 15:48 Receipt Acknowledged By: 11/26/2024 10:02 /es/ RONNI RIDLEY Advanced Data Transcriber for EITAN [place] === --- Original Document --- 11/25/24 ADMINISTRATIVE NOTE: Cotton Stripper received phone call from [facility] requesting a new consult for the . was referred to pain management by [facility]. Please enter a new pain management consult for the right knee if appropriate. /lora/ VINICIO BYRNE ADVANCED SEPARATOR OPERATOR Signed: 11/25/2024 15:04 Receipt Acknowledged By: 11/25/2024 15:49 /es/ JASMYNE SCHMITZ CERTIFIED NURSE PRACTITIONER * AWAITING SIGNATURE * NADINE ALVAREZ 11/25/2024 15:07 /es/ MANDO COOLEY LPN Licensed Practical Nurse for PEDRO STEWART 11/26/2024 ADDENDUM STATUS: UNSIGNED You may not VIEW this UNSIGNED Addendum. NADINE ALVAREZ [facility] [place] [facility] Nov 25, 2024 02:57 PM ADMINISTRATIVE NOTE: LOCAL TITLE: ADMINISTRATIVE NOTE STANDARD TITLE: ADMINISTRATIVE NOTE DATE OF NOTE: NOV 25, 2024@14:57 ENTRY DATE: NOV 25, 2024@14:57:16 AUTHOR: VINICIO BYRNE COSIGNER: URGENCY: STATUS: COMPLETED ADMINISTRATIVE NOTE Has ADDENDA Cotton Stripper received phone call from [facility] requesting a new consult for the . [place] was referred to pain management by [facility]. Please enter a new pain management consult for the right knee if appropriate. /lora/ VINICIO BYRNE ADVANCED SEPARATOR OPERATOR Signed: 11/25/2024 15:04 Receipt Acknowledged By: 11/25/2024 15:49 /es/ JASMYNE SCHMITZ CERTIFIED NURSE PRACTITIONER 11/30/2024 16:16 /es/ NADINE ALVAREZ RN REGISTERED NURSE 11/25/2024 15:07 /es/ MANDO COOLEY LPN Licensed Practical Nurse for PEDRO TEEGERTRUDIS 11/25/2024 ADDENDUM STATUS: COMPLETED Adding [facility] /lora/ NADINE ALVAREZ RN REGISTERED NURSE Signed: 11/25/2024 15:48 Receipt Acknowledged By: 11/26/2024 10:02 /es/ RONNI RIDLEY Advanced Data Transcriber for EITAN [place]ES 11/26/2024 ADDENDUM STATUS: COMPLETED OFFICE PROGRESS NOTE REQUESTED /lora/ RONNI RIDLEY Advanced Data Transcriber Signed: 11/26/2024 10:02 11/26/2024 ADDENDUM STATUS: COMPLETED Office note from [facility] received.Unfortunately there is no mention of being referred to pain management in note. /lora/ NADINE ALVAREZ RN REGISTERED NURSE Signed: 11/26/2024 15:42 VINICIO BYRNE [place] [facility]
--- OUTSIDE RECORDS SUMMARY | 2024-11-30 17:15 | XMS_ITS | Encounter Summary ---
Author Name [facility] [place] Address [address] [place] [address] Care Team Providers Care Hand Sander Name Role Phone CHANI RHODES Primary [facility] [...] [facility], [facility]22 [id number] EMERITA BAUTISTA PATIENT [facility] MEDICAID MEDICAID MEDIC AID Oct 06, 2013 MEDICAI D [id number] EMERITA BAUTISTA PATIENT MEDICARE (WNR) MEDICARE (M) PART A Mar 06, 2015 PART A [id number] EMERITA BAUTISTA PATIENT MEDICARE (WNR) MEDICARE (M) PART B Mar 06, 2015 PART B [id number] [phone] EMERITA BAUTISTA PATIENT MEDICARE (WNR) MEDICARE (M) PART B Mar 06, 2015 PART B [id number] EMERITA BAUTISTA PATIENT MEDICARE (WNR) MEDICARE (M) PART A Mar 06, 2015 PART A [id number] [phone] EMERITA BAUTISTA PATIENT MEDICARE (WNR) MEDICARE (M) PART B Mar 06, 2015 PART B [id number] EMERITA BAUTISTA PATIENT MEDICARE (WNR) MEDICARE (M) PART A Mar 06, 2015 PART A [id number] EMERITA BAUTISTA PATIENT Selected Encounter This section includes the information on record at [place] for the Encounter. Date/Time Encounter Type Encounter Description Reason Provider Source Nov 30, 2024 12:00 PM MTMS BY PHARM EST 15 MIN TELEPHONE PRIMARY CARE ICD-10-CM E11.9 Type 2 diabetes mellitus without complications JOAQUÍN BECK Behzad Encounter Template Text not used by [place] Assessments - Encounter Diagnoses This section includes the primary and secondary diagnoses documented for the Encounter. Date/Time Primary/Secondary Diagnosis Diagnosis Name Provider Source Nov 30, 2024 12:00 PM PRIMARY Type 2 diabetes mellitus without complications TAO BECK [facility] Plan of Treatment: Future Appointments (+ 6 months) and Future Tests (+/- 45 days) The Plan of Treatment section includes future care activities for the patient from all [place] treatmentfacilities. This section includes future appointments and future orders which are active, pending or scheduled. Future Appointments This section includes appointments that were scheduled to occur 6 months from the date of the Encounter, up to a maximum of 20 appointments. The data comes from all [place] treatment facilities. Appointment Date/Time Appointment Type Appointme nt Facility Name Dec 03, 2024 10:30 AM AMBULATORY - RE[facility]AB [facility] Dec 29, 2024 10:45 AM AMBULATORY - MEDICINE [place] [facility] [place] [facility] Jan 11, 2025 12:00 PM AMBULATORY - MEDICINE [place] [facility] [place] [facility] Jan 20, 2025 10:00 AM AM[facility]ATORY - MEDICINE [facility] February 04, 2025 08:00 AM AMBULATORY - MEDICINE [facility] February 17, 2025 11:00 AM AMBULATORY - NONE [place] [facility] [place] [facility] February 17, 2025 11:00 AM AMBULATORY - [place]ICINE [place] [facility] February 17, 2025 11:05 AM AMBULATORY - MEDICINE [place] [facility] [place] [facility] May 03, 2025 10:00 AM AM[facility]ULATORY [facility] Active, Pending, and Scheduled Orders This section includes a listing of several types of active, pending, and scheduled orders, including clinic medications orders, diagnostic test orders, procedure orders and consult orders; where the start date of the order is 45 days before the date of the Encounter or 45 days after the date of theEncounter. The data comes from all [place] treatment facilities. Test Date/Time Test Type Test Details Facility Name Nov 18, 2024 09:52 AM Procedure Order FIBROSCAN CP FIBROSCAN (OUTPT) Proc Vegetable Inspector's Choice [facility] Social History: Smoking Status (Most current) and [...] 08, 2024 09:00 AM VA-TOBACCO FORMER USER [facility] Tobacco Use History This section includes a history of the smoking, or tobacco-related health factors, that were collected on or before the date of the Encounter. The data comes from the [place] facility where the Encounter took place. Date/Time Smoking Status/Tobacco Use Comment F acility Mar 08, 2024 09:00 AM VA-TOBACCO QUIT 15 YRS OR MORE [facility] Mar 27, 2022 09:30 AM VA-TOBACCO FORMER USER [facility] Mar 27, 2022 09:30 AM VA-TOBACCO QUIT 15 YRS OR MORE [facility] Dec 22, 2018 10:29 AM VA-TOBACCO FORMER USER [facility] Dec 22, 2018 10:29 AM VA-TOBACCO QUIT 15 YRS OR MORE [facility] Mar 19, 2018 11:33 AM VA-TOBACCO FORMER USER [facility] Mar 19, 2018 11:33 AM VA-TOBACCO QUIT 15 YRS OR MORE [facility] May 13, 2017 01:22 PM QUIT TOBACCO USE > 7 YEARS AGO quit 24 yrs ago [facility] Nov 15, 2015 09:48 AM QUIT TOBACCO USE > 7 YEARS AGO States he last smoked 21 years ago [facility] Dec 07, 2009 02:51 PM QUIT TOBACCO USE > 7 YEARS AGO [facility] Advance Directives: All historical and current Section [...] Encounter. Date/Time Encounter Note(s) Provider Source Nov 30, 2024 02:37 PM PHARMACY OUTPATIEN T NOTE: LOCAL TITLE: PHARMACY CLINIC NOTE STANDARD TITLE: PHARMACY OUTPATIENT NOTE DATE OF NOTE: NOV 30, 2024@14:37 ENTRY DATE: NOV 30, 2024@14:37:49 AUTHOR: SHANDA BECK COSIGNER: URGENCY: STATUS: COMPLETED Patient Name: EMERITA BAUTISTA was seen via TELE for follow-up for diabetes management treatment. : Sep Age: 59 Sex: MALE Race: BLACK OR Subjective: PT was contacted while he was leaving the post surgery appt to remove the stiches. He is healing relatively well. Pt does not always wear dexcom reader w/ him - counseled on that. Per prev: Pt presents for a f/up. [...] will have less stressors associated with it. Target Goals: A1C: 7%; FB-130 mg/dL; 2HRS PP <180mg/dL. Allergies: Patient has answered NKA PERTINENT INFORMATION: Active problems - Computerized Problem List is the source for the followin. Long-term current use of opiate analgesic drug 2. Obesity 3. Osteoarthritis of multiple joints 4. Degeneration of lumbar intervertebral disc 5. Cervical radiculopathy 6. HTN - Hypertension ([facility] [id number]) 7. Allergic Rhinitis ([facility] [id number]) 8. Vitamin D Deficiency ([facility] [id number]) 9. Hyperlipidemia ([facility] [id number]) 10. Fatty liver 11. Depression 12. History of surgery 13. Diabetic neuropathy 14. Erectile dysfunction 15. Type 2 diabetes mellitus 16. Under care of multiple providers 17. Bilateral hearing loss 18. Bilateral tinnitus CURRENT DIABETES MEDICATIONS Diabetes Medication Regimen: - Insulin glargine (Semglee) 44 units bid - Insulin Novolog 28 units TID (B/L/D) --metformin SA * 750 mg in AM - tirzepatide (mounjaro) 5 mg weekly (Mondays) --empagliflozin 25mg daily in AM -eGFR 73ml/min on 09/2024 Previous DM Medications: -- liraglutide 1.8mg daily - stopped on 09/19/23 - Trulicity - stopped when converted back to semaglutide -- Semaglutide 0.5 mg weekly - pt restarted on 10/17/23 ; stopped d/t ADR:stinky burps, abdominal pains ; stools were loose -- semaglutide at 0.5 mg weekly *pt unable [...] 100 mL/min CRCL ADJ: 96.3 mL/min (09/07/24) SERUM Sep 07 Mar 08 Mar 08 Reference 2023 2023 2023 09:20 09:42 09:42 Units Ranges AST 34 26 U/L 5 - 34 ALT 56 H 46 U/L <6 - 55 Vitals: Weight (BMI): 274 lb [124.28 kg] [...] MELLITUS MEDICATION RECONCILIATION: done BG readings: Date: 08/05/24 Dexcom G7 14 day avgt: [...] 0% VERY LOW sensor usage: 79% Date: 11/30/24 Dexcom G7 7 day avgt:206 mg/dl; 8% VERY HIGH 72% HIGH 20% IN RANGE 0% LOW 0% VERY LOW sensor usage: 79% GMI: 8.3% NUTRITION: Pt eats x 3 day Breakfast: skips Lunch: bowl from [employer] or make his own lunch Dinner: 7PM: varies, daughter or or self cooks, protein/starch/veggie, rarely eats out snacks:occasionally pretzels w/ peanut butter in the middle sometimes bakes his own receipies that are healthier Beverages consumed: water or diet coke Exercise: knee pain is current limitation HYPOGLYCEMIC [...] 273 lbs 10/2024 => 274 lbs ASSESSMENT/PLAN: 10/05/24 Reviewed the data from the sensor [...] contacted over the telephone after the surgery. Date: 11/30/24 Encouraged pt to drink more water pt has been avoiding it in the past prior to knee surgery. Reviewed upload of dexcom - first STRONGLY encouraged pt to wear the reader at all times! Recommend to increase both basal insulin and mounjaro. Pt in agreement. REviewed nutrition. Close f/up in 1 month. Reviewed the potential ADR to mounjaro - as of note pt could not tolerate higher doses of semaglutide. DIABETES A1c is above goal of <7% - Medication management Diabetes Diabetes Medication Regimen: - INCREASE insulin glargine (Semglee) to 48units bid - CONTINUE insulin Novolog 28 units TID (B/L/D) --CONTINUE metformin SA * 750 mg in AM - INCREASE tirzepatide (mounjaro) to 7.5 mg weekly (Mondays) --CONTINUE empagliflozin 25mg daily in AM -eGFR 73ml/min on 09/2024 Hypertension: - Lisinopril 5 mg daily Hyperlipidemia - Atorvastatin 80 mg daily - Reviewed [facility] lab results - Monitor for s/sx hypoglycemia and contact clinic if BG consistently <70mg/dL - Healthy dietary and lifestyle modifications encouraged - to cut down on portions and sweets - Repeat A1c: x 3 months HTN: recent BP ; lisinopril ; LEILANI-I/ARB - defer to PCP ASCVD: atorvasatain Microalb: mALB/Cr: 31.8 H mg/G (03/2022) Most recent visit to med care manager: 10/2021 Most recent visit to optometry: [...] to adminsiter semaglutide Clinic's Next Scheduled Follow-up: January 2025 - tele No barriers; Patient understands and [...] PBM PharmD Pharmacotherapy Rem V12: PHARMACIST INTERVENTIONS: HYPERTENSION Medication monitoring, no dosage change required, continue to monitor and assess LIPID MANAGEMENT Medication monitoring, no dosage change required, continue to monitor and assess TYPE 2 DIABETES MELLITUS Medication Intervention(s) Adjust dose or frequency of current medication due to other reason Plan: increase dose of insulin glargine and tirzepatide Medication monitoring, no dosage change required, continue to monitor and assess /lroa/ SHANDA BECK CLINICAL QUALITY CONTROL LEAD Signed: 11/30/2024 15:00 Receipt Acknowledged By: 11/30/2024 15:01 /lora/ JASMYNE SCHMITZ CERTIFIED NURSE PRACTITIONER SHANDA BECK [facility]
--- OUTSIDE RECORDS SUMMARY | 2024-11-30 17:16 | XMS_ITS | Encounter Summary ---
Author Name [facility] [place] Address [address] [place] [address] Care Team Providers Care Wireworker Supervisor Name Role Phone CHANI RHODES Primary [...] [facility] February 03, 2022 [id number] [phone] EMERITA BAUTISTA PATIENT [facility] MEDICAID MEDICAID MEDIC AID Oct 06, 2013 MEDICAI D [id number] EMERITA BAUTISTA PATIENT MEDICARE (WNR) MEDICARE (M) PART A Mar 06, 2015 PART A [id number] EMERITA BAUTISTA PATIENT MEDICARE (WNR) MEDICARE (M) PART B Mar 06, 2015 PART B [id number] [phone] EMERITA BAUTISTA PATIENT MEDICARE (WNR) MEDICARE (M) PART B Mar 06, 2015 PART B [id number] EMERITA BAUTISTA PATIENT MEDICARE (WNR) MEDICARE (M) PART A Mar 06, 2015 PART A [id number] [phone] EMERITA BAUTISTA PATIENT MEDICARE (WNR) MEDICARE (M) PART B Mar 06, 2015 PART B [id number] EMERITA BAUTISTA PATIENT MEDICARE (WNR) MEDICARE (M) PART A Mar 06, 2015 PART A [id number] [phone] EMERITA BAUTISTA PATIENT Selected Encounter This section includes the information on record at [place] for the Encounter. Date/Time Encounter Type Encounter Description Reason Pro vider Source Nov 26, 2024 11:48 AM Outpatient Encounter PRIMARY CARE/MEDICINE IHE Encounter [...] 30, 2024 12:00 PM AMBULATORY - MEDICINE [place] [facility] Dec 03, 2024 10:30 AM AMBULATORY - REHAB [facility] Dec 29, 2024 10:45 AM AMBULATORY - MEDICINE [place] [facility] Jan 11, 2025 12:00 PM AMBULATORY - MEDICINE [place] [facility] [place] [place] [facility] Jan 20, 2025 10:00 AM [facility] February 04, 2025 08:00 AM [facility] [place]IC[place] February 17, 2025 11:00 AM AMBULATORY - NONE [place] [facility] [place] [facility] February 17, 2025 11:00 AM AMBULATORY - [place]IC[place] [facility] February 17, 2025 11:05 AM AMBULATORY - MEDICINE [place] [facility] [place] [place] [facility] May 03, 2025 10:00 AM AMBULATORY - MEDICINE [place] [facility] Active, Pending, and Scheduled Orders This [...] Procedure Order FIBROSCAN CP FIBROSCAN (OUTPT) Proc 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 The data comes from the [place] facility where the Encounter took place. Date/Time Smoking Status/Tobacco Use Comment F acility Mar 11, 2023 08:30 AM [facility]-TOBACCO [facility]IT [facility]RS [facility] Dec 27, 2020 02:00 PM [facility] Dec 27, 2020 02:00 PM AL-TOBACCO QUIT 15 YRS OR MORE [facility] Advance Directives: All historical and current [...] Encounter. Date/Time Encounter Note(s) Provider Source Nov 26, 2024 11:48 AM PRIMARY CARE NOTE: LOCAL TITLE: WALK-IN NOTE PRIMARY CARE (T) STANDARD TITLE: PRIMARY CARE NOTE DATE OF NOTE: NOV 26, 2024@11:48 ENTRY DATE: NOV 26, 2024@11:48:35 AUTHOR: GIGI MARQUEZ COSIGNER: URGENCY: STATUS: COMPLETED WALK-IN NOTE PRIMARY CARE (T) Has ADDENDA <====Click to Start Advanced Medical Support presents to the Primary Care clinic with the following request: [ ]Medication Renewal/Refill [ ]Consultation with Team RN [ ]Symptoms [ X ]Other letter [facility] states they are: [ ]Waiting [ X ]Not Waiting No Walk in visit scheduled with PACT Nurse [ X ] At this encounter the 's demographics were verified. [ X ] At this encounter the 's Insurance information was verified. [ X ] At this encounter the below scheduled visits for the [place] were discussed and appointment reminder card was offered. 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 Please call at [phone] to get more information. /lora/ GIGI VARMA Signed: 11/26/2024 11:50 Receipt Acknowledged By: 11/30/2024 10:14 /lora/ PEDRO STEWART LPN LPN 11/26/2024 15:43 /lora/ NADINE ALVAREZ RN REGISTERED NURSE 11/26/2024 ADDENDUM STATUS: COMPLETED Adding CPP to review and advise. /lora/ NADINE ALVAREZ RN REGISTERED NURSE Signed: 11/26/2024 15:44 Receipt Acknowledged By: * AWAITING SIGNATURE * SHANDA BECK [place]
--- OUTSIDE RECORDS SUMMARY | 2024-11-30 17:16 | XMS_ITS | Continuity of Care Document ---
Author Name [facility] Organization [facility] Care Team Providers Care Azure Architect Name Role Phone [facility] Unavailable Unavailable Problems Combined list of problems from Department of Defense and Veterans Affairs facilities. It does not include entries that were removed or entered in error. Problem Status Onset Date Problem Type Date of Resolution Comments Source Diabetes Mellitus Type II or unspecified Inactive 10/06/19 06 Condition 05/13/2017 [place] Allergic Rhinitis ([facility] [id number]) Active Condition [place] Bilateral hearing loss Active Condition [place] Bilateral tinnitus Active Condition [place] Cervical radiculopathy Active Condition Sep 11, 2024 Entered By: CHANI RHODES Comment: 12/25/23 MRI [place] Degeneration of lumbar intervertebral disc Active Condition Sep 11, 2024 Entered By: CHANI RHODES Comment: 06/17/23 MRI lumbar spine [place] Depression Active Condition [place] Diabetic neuropathy Active Condition [place] Erectile dysfunction Active Condition [place] Fatty liver Active Condition Sep 11, 2024 Entered By: CHANI RHODES Comment: 03/08/24 US showed steatosis, fibrosis [place] History of surgery Active Condition May 13, [...] CHANI RHODES Comment: urethral surgery for obstruction [place] HTN - Hypertension ([facility]CT [id number]) Active Condition [place] Hyperlipidemia ([facility] 15958164) Active Condition [place] Impotence Active Condition [facility] Long-term current use of opiate analgesic [...] By: CHANI RHODES Comment: XR knees 04/27/24 [place] Type 2 diabetes mellitus Active Condition Nov 14, 2022 Entered By: SOM STANFORD Comment: See Diabetic PHARM D Note Dated Nov Entered By: CHANI RHODES Comment: 09/07/24 A1c 8.3 [place] Under care of multiple providers Active Condition Sep 11, 2024 Entered By: CHANI RHODES Comment: community PCP - Dr. Worrell NILS Vitamin D Deficiency ([facility] [id number]) Active Condition [place] : Rt Flank Paiin Inactive Condition 05/13/2017 Dec 07, 2009 Entered By: MARIA E CLAYTON RA Comment: Decreased Urinary Flow [place] Abdominal discomfort Inactive Condition 12/12/2023 [place] Acute diarrhoea Inactive Condition 12/12/2023 [facility] Blurred vision (ICD-9-CM 368.8) Inactive Condition 05/13/2017 [facility] Edema of lower leg Inactive Condition 09/11/2024 [place] Elevated blood pressure reading without diagnosis of hypertension Inactive Condition 05/13/2017 [place] H: [phone] & C: [phone] Inactive Condition 05/13/2017 [place] Onychomycosis of toenails Inactive Condition 09/11/2024 [facility] Other symptoms involving abdomen and pelvis Inactive Condition 05/13/2017 May 16, 2011 Entered By: SOM STANFORD Comment: Non-Descript ABD Pain May Entered By: SOM STANFORD Comment: CT, ABD MAY 16: No Acute Patholgy, +Fatty Liver,May 16, 2011 Entered By: SOM STANFORD Comment: +Benign Cysts Both Kidneys, +Colonic Diverticulae [place] Unemployment * Inactive Condition 05/13/2017 [facility] Diagnosis: ICD-10-CM E11.9 Type 2 diabetes mellitus without complications Active Diagnosis [place] Diagnosis: ICD-10-CM M15.9 Polyosteoarthriti s, unspecified Active Diagnosis [facility] Diagnosis: ICD-10-CM L60.3 Nail dystrophy Active Diagnosis [facility] Diagnosis: ICD-10-CM M25.561 Pain in right knee Active Diagnosis [facility] Diagnosis: ICD-10-CM M54.50 Low back pain, unspecified Active Diagnosis [facility] Diagnosis: ICD-10-CM M25.569 Pain in unspecified knee Active Diagnosis [facility] Diagnosis: ICD-10-CM Z71.89 Other specified counseling Active Diagnosis [place] Diagnosis: ICD-10-CM G50.1 Atypical facial pain Active Diagnosis [place] Diagnosis: ICD-10-CM Z46.0 Encounter for fit/adjst of spectacles and contact lenses Active Diagnosis [facility] Diagnosis: ICD-10-CM H34.8110 Central retinal vein occls, right eye, with macular edema Active Diagnosis [facility] Diagnosis: ICD-10-CM M19.91 Primary osteoarthritis, unspecified site Active Diagnosis [facility] Diagnosis: ICD-10-CM R10.9 Unspecified abdominal pain [facility] Diagnosis: ICD-10-CM E78.5 Hyperlipidemia, unspecified Active Diagnosis [place] Diagnosis: ICD-10-CM I10 Essential (primary) hypertension Active Diagnosis [place] Diagnosis: ICD-10-CM M54.51 Vertebrogenic low back pain Active Diagnosis [place] Diagnosis: ICD-10-CM Z71.3 Dietary counseling and surveillance Active Diagnosis [place] Diagnosis: ICD-10-CM R11.0 Nausea Active Diagnosis [place] Medications Combined list of outpatient medications from [...] DAILY NEEDED FOR PAIN ORAL ACTIVE 08/20/2025 [id number] 4 MARCK STANFORD [address] [facility] IELD ACETAMINOPH EN 500MG TAB TAKE TWO TABLETS BY MOUTH THREE TIMES DAILY NEEDED FOR PAIN ORAL 11/28/2024 [id number] 4 SARA MARES F [address] [facility] IELD AMOXICILLIN TRIHYDRATE 500MG/CLAVU LANATE K 125MG TAB TAKE 1 TABLET BY MOUTH EVERY 12 HOURS WITH FOOD, FOR 10 DAYS ORAL 08/05/2024 [id number] KI EATON LUC [address] [facility] IELD ATORVASTATI N CA 80MG TAB TAKE ONE TABLET BY MOUTH AT BEDTIME FOR HIGH CHOLESTE ROL ORAL ACTIVE 11/05/2025 [id number] 5 Gale RHODES [address] [facility] IELD ATORVASTATI N CA 80MG TAB TAKE ONE TABLET BY MOUTH AT BEDTIME FOR HIGH CHOLESTE ROL ORAL DISCONT INUED 11/28/2024 [id number] 4 SARA MARES F [address] [facility] IELD BUPRENORPHI NE 10MCG/HR PATCH APPLY 1 PATCH TO SKIN EVERY 5 DAYS (REMOVE PATCH BEFORE APPLYING A NEW PATCH) TRANSD ERMAL DISCONT INUED BY PROVIDE R 02/27/2025 [id number] SABA CARL B 2023 6 [facility] BUPRENORPHI NE 15MCG/HR PATCH APPLY 1 PATCH TO SKIN EVERY 5 DAYS (REMOVE PATCH BEFORE APPLYING A NEW PATCH) TRANSD ERMAL ACTIVE 03/27/2025 [id number] 4 GERALDINEFERRYLIE QUARLESSABA B 12/23/ 2024 6 [facility] BUPRENORPHI NE 5MCG/HR PATCH APPLY 1 PATCH TO SKIN EVERY 5 DAYS (REMOVE PATCH BEFORE APPLYING A NEW PATCH) TRANSD ERMAL DISCONT INUED BY PROVIDE R 09/22/2024 [id number] 4 [facility] B 2023 6 [facility] CARBOXYMETH YLCELLULOSE NA 0.5% SOLN,OPH INSTILL 1 DROP INTO EACH EYE FOUR TIMES A DAY FOR DRY EYE OPHTHA LMIC ACTIVE 05/01/2025 [id number] 4 WELSH,LAC EY J 2023 45 [facility] CHOLECALCIF VINH 50MCG (2,000UNIT) TAB TAKE ONE TABLET BY MOUTH ONCE DAILY FOR VITAMIN SUPPLEME NTATION ORAL ACTIVE 12/15/2024 [id number] 4 SARA MARES RMEH F 2023 100 [place] CYCLOBENZAP RINE HCL 10MG TAB TAKE ONE TABLET BY MOUTH TWICE DAILY NEEDED FOR MUSCLE SPASM ORAL DISCONT INUED BY PROVIDE R 08/20/2025 [id number] 4 MARCK STANFORD 2023 60 [place] CYCLOBENZAP RINE HCL 10MG TAB TAKE ONE TABLET BY MOUTH AT BEDTIME NEEDED FOR MUSCLE SPASM ORAL 12/28/2023 [id number] 4 SARA MARES RMEN F 2023 30 [place] DICLOFENAC NA 1% GEL,TOP APPLY 2 GRAMS TOPICALL Y FOUR TIMES A DAY FOR OSTEOART HRITIS - USE DOSING CARD PROVIDED IN BOX TOPICA L ACTIVE 11/05/2025 [id number] 5 [facility],SABA B 2024 200 [facility] EMPAGLIFLOZ IN 25MG TAB TAKE ONE TABLET BY MOUTH ONCE DAILY ORAL ACTIVE 09/07/2025 [id number] Eli BECK 2023 30 [place] EMPAGLIFLOZ IN 25MG TAB TAKE ONE TABLET BY MOUTH ONCE DAILY ORAL DISCONT INUED 10/17/2024 [id number] Eli BECK A [address] [facility] IELD EMPAGLIFLOZ IN 25MG TAB TAKE ONE TABLET BY MOUTH ONCE DAILY ORAL DISCONT INUED 10/07/2024 [id number] 4 Eli BECKA A [address] [facility] IELD GABAPENTIN 100MG CAP TAKE ONE CAPSULE BY MOUTH THREE TIMES A DAY FOR 7 DAYS, THEN TAKE TWO CAPSULES THREE TIMES A DAY FOR 7 DAYS, THEN TAKE THREE CAPSULES THREE TIMES A DAY FOR 16 DAYS ORAL 04/25/2024 [id number] 4 [facility] B 2023 207 [facility] GABAPENTIN 100MG CAP TAKE ONE CAPSULE BY MOUTH EVERY MORNING AND TAKE TWO CAPSULES AT BEDTIME FOR NERVE PAIN ORAL 03/11/2024 [id number] 4 Gale RHODES [address] [facility] IELD GABAPENTIN 300MG CAP TAKE TWO CAPSULES BY MOUTH THREE TIMES A DAY ORAL ACTIVE 08/28/2025 [id number] 5 [facility],S[facility] B 2024 540 [facility] GABAPENTIN 300MG CAP TAKE ONE CAPSULE BY MOUTH THREE TIMES A DAY FOR NERVE PAIN ORAL DISCONT INUED 08/13/2025 [id number] 4 [facility],SABA B 2023 270 [facility] GLUCOSE 4GM TAB,CHEW CHEW FOUR TABLETS BY MOUTH NEEDED FOR LOW BLOOD SUGAR ORAL ACTIVE 06/11/2025 [id number] ИРИНА ARAGON [address] [facility] IELD HYDROCODONE 5MG/ACETAMI NOPHEN 325MG TAB TAKE 1 TABLET BY MOUTH TWICE DAILY FOR PAIN ORAL ACTIVE 12/04/2024 [id number] 5 [facility] B 2024 60 [facility] HYDROCODONE 5MG/ACETAMI NOPHEN 325MG TAB TAKE 1 TABLET BY MOUTH TWICE DAILY NEEDED NEXT FILL 10/25 ORAL 10/24/2024 [id number] 4 [facility] B 2023 60 [facility] HYDROCODONE 5MG/ACETAMI NOPHEN 325MG TAB TAKE 1 TABLET BY MOUTH TWICE DAILY NEEDED FOR PAIN ORAL 09/26/2024 [id number] 4 [facility] B 2023 60 [facility] HYDROCODONE 5MG/ACETAMI NOPHEN 325MG TAB TAKE 1 TABLET BY MOUTH TWICE DAILY FOR PAIN ORAL 06/20/2024 [id number] 4 [facility],S[facility] B 2023 60 [facility] HYDROCODONE 5MG/ACETAMI NOPHEN 325MG TAB TAKE 1 TABLET BY MOUTH TWICE DAILY FOR PAIN (NEXT FILL 04/19/24) ORAL 04/21/2024 [id number] 4 [facility],[place] B 2023 60 [facility] HYDROCODONE 5MG/ACETAMI NOPHEN 325MG TAB TAKE 1 TABLET BY MOUTH TWICE DAILY NEEDED FOR PAIN MAY USE UP TO 3 DAYS PER WEEK (NEXT FILL 03/09/24) ORAL 03/11/2024 [id number] 4 [facility] B 2023 24 [facility] INSULIN,ASP ART,HUMAN (EQV-NOVOLO G) 100 UNIT/ML,FLE XPEN,3ML INJECT 27 UNITS SUBCUTAN EOUSLY THREE TIMES A DAY BEFORE MEALS INJECT 15 MINUTES BEFORE MEALS IF MEAL SKIPPED SKIP THE DOSE SUBCUT ANEOUS ACTIVE 06/11/2025 [id number] 5 ИРИНА ARAGON [address] [facility] IELD INSULIN,ASP ART,HUMAN (EQV-NOVOLO G) 100 UNIT/ML,FLE XPEN,3ML INJECT 25 UNITS SUBCUTAN EOUSLY THREE TIMES A DAY INJECT 15 MINUTES BEFORE MEALS IF MEAL SKIPPED SKIP THE DOSE SUBCUT ANEOUS DISCONT INUED (EDIT) 02/26/2025 [id number] Eli BECK 2023 10 [place] INSULIN,ASP ART,HUMAN (EQV-NOVOLO G) 100 UNIT/ML,FLE XPEN,3ML INJECT 25 UNITS SUBCUTAN EOUSLY BEFORE BREAKFAS T AND INJECT 25 UNITS BEFORE LUNCH AND INJECT 25 UNITS BEFORE SUPPER (SKIP DOSE IF MEAL IS SKIPPED) SUBCUT ANEOUS 01/11/2024 [id number] Eli BECK 2022 20 [place] INSULIN,GLA RGINE-YFGN 100UNIT/ML INJ PEN,3ML INJECT 46 UNITS SUBCUTAN EOUSLY TWICE DAILY SUBCUT ANEOUS ACTIVE 02/26/2025 [id number] Eli BECK 2023 10 [place] INSULIN,GLA RGINE-YFGN 100UNIT/ML INJ PEN,3ML INJECT 40 UNITS SUBCUTAN EOUSLY TWICE DAILY FOR DIABETES SUBCUT ANEOUS 02/14/2024 [id number] 4 Eli BECK 2022 20 [place] LIDOCAINE 5% PATCH APPLY 1 PATCH TOPICALL Y ONCE DAILY NEEDED (LEAVE PATCH ON FOR 12 HOURS, THEN REMOVE PATCH) TOPICA L 11/28/2024 [id number] SARA MARES RMEN F 2023 30 [place] LISINOPRIL 5MG TAB TAKE ONE TABLET BY MOUTH ONCE DAILY TO CONTROL BLOOD PRESSURE ORAL ACTIVE 06/04/2025 [id number] SARA MARES RMEN F 2023 90 [place] LISINOPRIL 5MG TAB TAKE ONE TABLET BY MOUTH ONCE DAILY TO CONTROL BLOOD PRESSURE ORAL DISCONT INUED 05/21/2024 [id number] SARA MARES RMEN F 2022 90 [place] METFORMIN HCL 750MG 24HR TAB,SA TAKE ONE TABLET BY MOUTH ONCE DAILY ORAL ACTIVE 02/26/2025 [id number] Eli BECK 2023 90 [place] METFORMIN HCL 750MG 24HR TAB,SA TAKE ONE TABLET BY MOUTH ONCE DAILY ORAL 02/14/2024 [id number] Eli BECK 2022 90 [place] SEMAGLUTIDE 0.25MG/0.37 5ML INJ,SOLN,PE N,3ML INJECT 0.5MG SUBCUTAN EOUSLY ONCE A WEEK FOR TYPE 2 DIABETES MELLITUS SUBCUT ANEOUS DISCONT INUED BY PROVIDE R 08/06/2025 [id number] Eli BECK 2023 1 [place] SEMAGLUTIDE 0.25MG/0.37 5ML INJ,SOLN,PE N,3ML INJECT 0.5MG SUBCUTAN EOUSLY ONCE A WEEK FOR TYPE 2 DIABETES MELLITUS SUBCUT ANEOUS DISCONT INUED 04/15/2025 [id number] Eli BECK 2023 1 [place] SEMAGLUTIDE 0.25MG/0.37 5ML INJ,SOLN,PE N,3ML INJECT 0.5MG SUBCUTAN EOUSLY ONCE A WEEK FOR TYPE 2 DIABETES MELLITUS SUBCUT ANEOUS DISCONT INUED BY PROVIDE R 11/04/2024 [id number] Eli BECK A 2023 1 [place] SEMAGLUTIDE 0.25MG/0.37 5ML INJ,SOLN,PE N,3ML INJECT 0.25MG SUBCUTAN EOUSLY ONCE A WEEK FOR 2 WEEKS, THEN INJECT 0.5MG ONCE A WEEK SUBCUT ANEOUS DISCONT INUED BY PROVIDE R 11/16/2023 [id number] Eli BECK 2023 1 [place] SEMAGLUTIDE 1MG/0.75ML INJ,SOLN,PE N,3ML INJECT 1MG SUBCUTAN EOUSLY ONCE A WEEK FOR TYPE 2 DIABETES MELLITUS SUBCUT ANEOUS DISCONT INUED BY PROVIDE R 11/27/2024 [id number] Eli BECK A 2023 1 [place] TIRZEPATIDE 2.5MG/0.5ML INJ,SOLN PACK,4 INJECT 2.5MG/0. 5ML SUBCUTAN EOUSLY WEEKLY SUBCUT ANEOUS DISCONT INUED BY PROVIDE R 10/06/2025 [id number] Eli BECK A 2023 1 [place] TIRZEPATIDE 5MG/0.5ML INJ,SOLN PACK,4 INJECT 5MG/0.5M L SUBCUTAN EOUSLY WEEKLY SUBCUT ANEOUS DISCONT INUED BY PROVIDE R 10/28/2025 [id number] 5 Eli BECK A 2024 1 [place] Immunizations Combined list of available immunizations from the Department of Defense and Veterans Affairs facilities. Immunization Series Date Given Administered By Site Reaction Lot Number CVX Code Drug Floor Director Status Comments Source INFLUENZA, SPLIT VIRUS, TRIVALENT, PF 2023 BIANCA COELLO LEFT DELTO ID [id number] 140 complet ed [place] INFLUENZA, INJECTABLE, QUADRIVALENT, PRESERVATIVE FREE 2021 BAUDILIO CONROY RIGHT DELTO ID [id number] 150 complet ed [place] ZOSTER RECOMBINANT 2 2021 BAUDILIO CONROY LEFT DELTO ID [id number] 187 complet ed [place] COVID-19 (MODERNA), MRNA, LNP-S, PF, 100 MCG/0.5ML DOSE OR 50 MCG/0.25ML DOSE 1 2021 207 complet ed MOD; [id number]; 2 [place] ZOSTER RECOMBINANT 1 2021 187 complet ed [place] INFLUENZA, INJECTABLE, QUADRIVALENT, PRESERVATIVE FREE 2020 150 complet ed Partner:Meka AVELAR.Admin istered by:[facility]. ([id number]:[id number].Address :[address] [place] [phone] [id number] [facility] INFLUENZA, INJECTABLE, QUADRIVALENT, PRESERVATIVE [...] Pt. got his vaccine at his employer. [facility] DTAP, UNSPECIFIED FORMULATION 2010 107 complet ed Site: Right Deltoid [place] FLU,3 YRS (HISTORICAL) 2009 88 complet ed had flu approx date [facility] Results Combined list of [...] Sep 06, 2024 01:20 PM Reporting Lab: [place] [facility] [address] Performing Lab: [place] [facility] [facility] [address] [facility] [address] [place] PSA PROSTATE SPECIFIC AG [MASS/VOLU ME] IN SERUM OR PLASMA 0.33 ng/mL 0.00 - 4.00 09/07 Specimen Type: SERUM No comment entered. Ordering Provider: ROLDAN RHODES Report Released Date/Time: Sep 06, 2024 01:20 PM Reporting Lab: [address] [address] Performing Lab: [address] [address] [place] LIPID PANEL FASTING CHOLESTERO L [MASS/VOLU ME] IN SERUM OR PLASMA 131 mg/dL 09/07 Specimen Type: SERUM Comment: Hemolysis present analysis cannot be performed. Hemolysis present may falsly elevate Potassium Total and Direct Bili, Iron, AST, %Fe. Ordering Provider: ROLDAN RHODES Report Released Date/Time: Sep 06, 2024 01:20 PM Reporting Lab: [address] [address] Performing Lab: [address] [address] [place] LIPID PANEL FASTING TRIGLYCERI DE [MASS/VOLU ME] IN SERUM OR PLASMA 219 mg/dL 0 - 150 09/07 H Specimen Type: SERUM Comment: Hemolysis present analysis cannot be performed. Hemolysis present may falsly elevate Potassium Total and Direct Bili, Iron, AST, %Fe. Ordering Provider: ROLDAN RHODES Report Released Date/Time: Sep 06, 2024 01:20 PM Reporting Lab: [address] [address] Performing Lab: [address] [address] [place] LIPID PANEL FASTING CHOLESTERO L IN LDL [MASS/VOLU ME] IN SERUM OR PLASMA BY CALCULATIO N 55 mg/dL 0 - 129 09/07 Specimen Type: SERUM Comment: Hemolysis present analysis cannot be performed. Hemolysis present may falsly elevate Potassium Total and Direct Bili, Iron, AST, %Fe. Ordering Provider: ROLDAN RHODES Report Released Date/Time: Sep 06, 2024 01:20 PM Reporting Lab: [address] [address] Performing Lab: [address] [address] [facility] LIP[facility] PANEL FASTING CHOLESTERO L.TOTAL/CH OLESTEROL IN HDL [MASS RATIO] IN SERUM OR PLASMA 4.1 09/07 Specimen Type: SERUM Comment: Hemolysis present analysis cannot be performed. Hemolysis present may falsly elevate Potassium Total and Direct Bili, Iron, AST, %Fe. Ordering Provider: ROLDAN RHODES Report Released Date/Time: Sep 06, 2024 01:20 PM Reporting Lab: [address] [address] Performing Lab: [address] [address] [place] LIPID PANEL FASTING CHOLESTERO L IN HDL [MASS/VOLU ME] IN SERUM OR PLASMA 32 mg/dL 40 - 60 09/07 L Specimen Type: SERUM Comment: Hemolysis present analysis cannot be performed. Hemolysis present may falsly elevate Potassium Total and Direct Bili, Iron, AST, %Fe. Ordering Provider: ROLDAN RHODES Report Released Date/Time: Sep 06, 2024 01:20 PM Reporting Lab: [address] [address] Performing Lab: [address] [address] [facility] HEM[facility]GLOB IN A1C PANEL HEMOGLOBIN A1C/HEMOGL OBIN.TOTAL [...] Sep 06, 2024 01:20 PM Reporting Lab: [facility] [address] [address] Performing Lab: [facility] [address] [address] [facility] LIVER FUNCTION PROTEIN [MASS/VOLU ME] IN SERUM OR PLASMA 7.5 g/dL 6.0 - 8.3 09/07 Specimen Type: SERUM Comment: Hemolysis present analysis cannot be performed. Hemolysis present may falsly elevate Potassium Total and Direct Bili, Iron, AST, %Fe. Ordering Provider: ROLDAN RHODES Report Released Date/Time: Sep 06, 2024 01:20 PM Reporting Lab: [facility] [address] [address] Performing Lab: [address] [address] [facility] LIVER FUNCTION ALBUMIN [MASS/VOLU ME] IN SERUM OR PLASMA 3.9 g/dL 3.5 - 5.0 09/07 Specimen Type: SERUM Comment: Hemolysis present analysis cannot be performed. Hemolysis present may falsly elevate Potassium Total and Direct Bili, Iron, AST, %Fe. Ordering Provider: ROLDAN RHODES Report Released Date/Time: Sep 06, 2024 01:20 PM Reporting Lab: [facility] [address] [address] Performing Lab: [facility] [address] [address] [facility] LIVER FUNCTION ALKALINE PHOSPHATAS E [ENZYMATIC ACTIVITY/V OLUME] IN SERUM OR PLASMA 80 U/L 40 - 150 09/07 Specimen Type: SERUM Comment: Hemolysis present analysis cannot be performed. Hemolysis present may falsly elevate Potassium Total and Direct Bili, Iron, AST, %Fe. Ordering Provider: ROLDAN RHODES Report Released Date/Time: Sep 06, 2024 01:20 PM Reporting Lab: [facility] [address] [address] Performing Lab: [facility] [address] [place] [address] [facility] LIVER FUNCTION ASPARTATE AMINOTRANS FERASE [ENZYMATIC ACTIVITY/V OLUME] IN SERUM OR PLASMA 34 U/L 5 - 34 09/07 Specimen Type: SERUM Comment: Hemolysis present analysis cannot be performed. Hemolysis present may falsly elevate Potassium Total and Direct Bili, Iron, AST, %Fe. Ordering Provider: ROLDAN RHODES Report Released Date/Time: Sep 06, 2024 01:20 PM Reporting Lab: [address] [address] Performing Lab: [address] [address] [facility] LIVER FUNCTION ALANINE AMINOTRANS FERASE [ENZYMATIC ACTIVITY/V OLUME] IN SERUM OR PLASMA 56 U/L 09/07 H Specimen Type: SERUM Comment: Hemolysis present analysis cannot be performed. Hemolysis present may falsly elevate Potassium Total and Direct Bili, Iron, AST, %Fe. Ordering Provider: ROLDAN RHODES Report Released Date/Time: Sep 06, 2024 01:20 PM Reporting Lab: [address] [address] Performing Lab: [address] [address] [facility] LIVER FUNCTION BILIRUBIN. TOTAL [MASS/VOLU ME] IN SERUM OR PLASMA commentm g/dL 0.2 - 1.2 09/07 Specimen Type: SERUM Comment: Hemolysis present analysis cannot be performed. Hemolysis present may falsly elevate Potassium Total and Direct Bili, Iron, AST, %Fe. Ordering Provider: ROLDAN RHODES Report Released Date/Time: Sep 06, 2024 01:20 PM Reporting Lab: [address] [address] Performing Lab: [address] [address] [facility] LIVER FUNCTION BILIRUBIN. DIRECT [MASS/VOLU ME] IN SERUM OR PLASMA commentm g/dL 0 - 0.5 09/07 Specimen Type: SERUM Comment: Hemolysis present analysis cannot be performed. Hemolysis present may falsly elevate Potassium Total and Direct Bili, Iron, AST, %Fe. Ordering Provider: ROLDAN RHODES Report Released Date/Time: Sep 06, 2024 01:20 PM Reporting Lab: [address] [address] Performing Lab: [address] [address] [place] BASIC METABOLI C PANEL (fasting ) UREA NITROGEN [MASS/VOLU ME] IN SERUM OR PLASMA 15 mg/dL 7 - 25 09/07 Specimen Type: SERUM Comment: Hemolysis present analysis cannot be performed. Hemolysis present may falsly elevate Potassium Total and Direct Bili, Iron, AST, %Fe. Ordering Provider: ROLDAN RHODES Report Released Date/Time: Sep 06, 2024 01:20 PM Reporting Lab: [address] [address] Performing Lab: [address] [address] [place] BASIC METABOLI C PANEL (fasting ) GLUCOSE [MASS/VOLU ME] IN SERUM OR PLASMA 176 mg/dL 65 - 100 09/07 H Specimen Type: SERUM Comment: Hemolysis present analysis cannot be performed. Hemolysis present may falsly elevate Potassium Total and Direct Bili, Iron, AST, %Fe. Ordering Provider: ROLDAN RHODES Report Released Date/Time: Sep 06, 2024 01:20 PM Reporting Lab: [address] [address] Performing Lab: [address] [address] [place] BASIC METABOLI C PANEL (fasting ) SODIUM [MOLES/VOL UME] IN SERUM OR PLASMA 139 mmol/L 135 - 145 09/07 Specimen Type: SERUM Comment: Hemolysis present analysis cannot be performed. Hemolysis present may falsly elevate Potassium Total and Direct Bili, Iron, AST, %Fe. Ordering Provider: ROLDAN RHODES Report Released Date/Time: Sep 06, 2024 01:20 PM Reporting Lab: [facility] [address] [address] Performing Lab: [address] [address] [place] BASIC METABOLI C PANEL (fasting ) POTASSIUM [MOLES/VOL UME] IN SERUM OR PLASMA 4.4 mmol/L 3.5 - 5.0 09/07 Specimen Type: SERUM Comment: Hemolysis present analysis cannot be performed. Hemolysis present may falsly elevate Potassium Total and Direct Bili, Iron, AST, %Fe. Ordering Provider: ROLDAN RHODES Report Released Date/Time: Sep 06, 2024 01:20 PM Reporting Lab: [address] [phone] Performing Lab: [address] [address] [place] BASIC METABOLI C PANEL (fasting ) CHLORIDE [MOLES/VOL UME] IN SERUM OR PLASMA 104 mmol/L 100 - 110 09/07 Specimen Type: SERUM Comment: Hemolysis present analysis cannot be performed. Hemolysis present may falsly elevate Potassium Total and Direct Bili, Iron, AST, %Fe. Ordering Provider: ROLDAN RHODES Report Released Date/Time: Sep 06, 2024 01:20 PM Reporting Lab: [address] [phone] Performing Lab: [address] [phone] [place] BASIC METABOLI C PANEL (fasting ) CARBON DIOXIDE, TOTAL [MOLES/VOL UME] IN SERUM OR PLASMA 23 meq/L 20 - 30 09/07 Specimen Type: SERUM Comment: Hemolysis present analysis cannot be performed. Hemolysis present may falsly elevate Potassium Total and Direct Bili, Iron, AST, %Fe. Ordering Provider: ROLDAN RHODES Report Released Date/Time: Sep 06, 2024 01:20 PM Reporting Lab: [address] [phone] Performing Lab: [address] [place] [address] [place] BASIC METABOLI C PANEL (fasting ) CREATININE [MASS/VOLU ME] IN SERUM OR PLASMA 1.15 mg/dL 0.50 - 1.40 09/07 Specimen Type: SERUM Comment: Hemolysis present analysis cannot be performed. Hemolysis present may falsly elevate Potassium Total and Direct Bili, Iron, AST, %Fe. Ordering Provider: ROLDAN RHODES Report Released Date/Time: Sep 06, 2024 01:20 PM Reporting Lab: [facility] W[facility] [address] [address] Performing Lab: [facility] [address] [address] [place] BASIC METABOLI C PANEL (fasting [...] Sep 06, 2024 01:20 PM Reporting Lab: [facility]PITALRBRYAN [facility]PITALTRN [address] [address] Performing Lab: [facility]ITALRJACK[facility]ENTERN [address] [address] [place] MICROALB UMIN CREATINI NE RATIO PANEL MICROALBUM IN/CREATIN INE [MASS RATIO] IN URINE 18.2 mg/g 0 - 29.9 09/07 Specimen Type: URINE No comment entered. Ordering Provider: ROLDAN RHODES Report Released Date/Time: Sep 06, 2024 01:20 PM Reporting Lab: [facility]ITALRBRYAN [facility]OSPITALTRN [address] [address] Performing Lab: [facility]ITALRJACK[facility]ENTERN [address] [address] [place] MICROALB UMIN CREATINI NE RATIO PANEL MICROALBUM IN [MASS/VOLU ME] IN URINE 0.9 mg/dL 09/07 Specimen Type: URINE No comment entered. Ordering Provider: ROLDAN RHODES Report Released Date/Time: Sep 06, 2024 01:20 PM Reporting Lab: [address] [address] Performing Lab: [address] [address] [place] MICROALB UMIN CREATINI NE RATIO PANEL CREATININE [MASS/VOLU ME] IN URINE 49.56 mg/dL 09/07 Specimen Type: URINE No comment entered. Ordering Provider: ROLDAN RHODES Report Released Date/Time: Sep 06, 2024 01:20 PM Reporting Lab: [address] [address] Performing Lab: [address] [address] [place] URINALYS IS COLOR OF URINE Colorles s 09/07 Specimen Type: URINE Comment: If Glucose = >500 and Ketones are positive, please alert the Physician. Ordering Provider: ROLDAN RHODES Report Released Date/Time: Sep 06, 2024 01:20 PM Reporting Lab: [address] [address] Performing Lab: [address] [address] [place] URINALYS IS APPEARANCE OF URINE Clear 09/07 Specimen Type: URINE Comment: If Glucose = >500 and Ketones are positive, please alert the Physician. Ordering Provider: ROLDAN RHODES Report Released Date/Time: Sep 06, 2024 01:20 PM Reporting Lab: [address] [address] Performing Lab: [address] [address] [place] URINALYS IS GLUCOSE [MASS/VOLU ME] IN URINE >1000mg/ dL 09/07 Specimen Type: URINE Comment: If Glucose = >500 and Ketones are positive, please alert the Physician. Ordering Provider: ROLDAN RHODES Report Released Date/Time: Sep 06, 2024 01:20 PM Reporting Lab: [facility] [address] [address] Performing Lab: [address] [address] [place] URINALYS IS KETONES [MASS/VOLU ME] IN URINE BY TEST STRIP NEGATIVE mg/dL 09/07 Specimen Type: URINE Comment: If Glucose = >500 and Ketones are positive, please alert the Physician. Ordering Provider: ROLDAN RHODES Report Released Date/Time: Sep 06, 2024 01:20 PM Reporting Lab: [address] [address] Performing Lab: [address] [address] [place] URINALYS IS ERYTHROCYT ES [PRESENCE] IN URINE SEDIMENT BY LIGHT MICROSCOPY NEGATIVE mg/dL 09/07 Specimen Type: URINE Comment: If Glucose = >500 and Ketones are positive, please alert the Physician. Ordering Provider: ROLDAN RHODES Report Released Date/Time: Sep 06, 2024 01:20 PM Reporting Lab: [address] [address] Performing Lab: [address] [address] [place] URINALYS IS PROTEIN [MASS/VOLU ME] IN URINE BY TEST STRIP NEGATIVE mg/dL 09/07 Specimen Type: URINE Comment: If Glucose = >500 and Ketones are positive, please alert the Physician. Ordering Provider: ROLDAN RHODES Report Released Date/Time: Sep 06, 2024 01:20 PM Reporting Lab: [facility] [address] [address] Performing Lab: [address] [address] [place] URINALYS IS NITRITE [PRESENCE] IN URINE NEGATIVE mg/dL 09/07 Specimen Type: URINE Comment: If Glucose = >500 and Ketones are positive, please alert the Physician. Ordering Provider: ROLDAN RHODES Report Released Date/Time: Sep 06, 2024 01:20 PM Reporting Lab: [address] [address] Performing Lab: [address] [address] [place]IN[place] IS BILIRUBIN. TOTAL [PRESENCE] IN URINE NEGATIVE mg/dL 09/07 Specimen Type: URINE Comment: If Glucose = >500 and Ketones are positive, please alert the Physician. Ordering Provider: ROLDAN RHODES Report Released Date/Time: Sep 06, 2024 01:20 PM Reporting Lab: [address] [address] Performing Lab: [address] [address] [place]IN[place] IS SPECIFIC GRAVITY OF URINE BY REFRACTOME TRY 1.023 1.016 - 1.022 09/07 H Specimen Type: URINE Comment: If Glucose = >500 and Ketones are positive, please alert the Physician. Ordering Provider: ROLDAN RHODES Report Released Date/Time: Sep 06, 2024 01:20 PM Reporting Lab: [address] [address] Performing Lab: [address] [address] [place] URINALYS IS PH OF URINE BY TEST STRIP 6.0 5.0 - 9.0 09/07 Specimen Type: URINE Comment: If Glucose = >500 and Ketones are positive, please alert the Physician. Ordering Provider: ROLDAN RHODES Report Released Date/Time: Sep 06, 2024 01:20 PM Reporting Lab: [address] [address] Performing Lab: [address] [address] [facility] IS UROBILINOG EN [MASS/VOLU ME] IN URINE BY TEST STRIP Normalmg /dL <2.0 - 2.0 09/07 Specimen Type: URINE Comment: If Glucose = >500 and Ketones are positive, please alert the Physician. Ordering Provider: ROLDAN RHODES Report Released Date/Time: Sep 06, 2024 01:20 PM Reporting Lab: [address] [address] Performing Lab: [address] [address] [facility] URINALYS IS LEUKOCYTE ESTERASE [PRESENCE] IN URINE BY TEST STRIP NEGATIVE 09/07 Specimen Type: URINE Comment: If Glucose = >500 and Ketones are positive, please alert the Physician. Ordering Provider: ROLDAN RHODES Report Released Date/Time: Sep 06, 2024 01:20 PM Reporting Lab: [address] [address] Performing Lab: [address] [address] [place] CBC AND DIFF (AUTO) LEUKOCYTES [#/VOLUME] IN BLOOD BY AUTOMATED COUNT 5.45 10*3/uL 4.50 - 11.00 09/07 Specimen Type: BLOOD No comment entered. Ordering Provider: ROLDAN RHODES Report Released Date/Time: Sep 06, 2024 01:20 PM Reporting Lab: [address] [address] Performing Lab: [address] [address] [place] CBC AND DIFF (AUTO) ERYTHROCYT ES [#/VOLUME] IN BLOOD BY AUTOMATED COUNT 5.45 10*6/uL 4.23 - 5.66 09/07 Specimen Type: BLOOD No comment entered. Ordering Provider: ROLDAN RHODES Report Released Date/Time: Sep 06, 2024 01:20 PM Reporting Lab: [address] [address] Performing Lab: [facility]RL W[facility]N [facility]ENTERCHUSETS [address] [address] [place] CBC AND DIFF (AUTO) HEMOGLOBIN [MASS/VOLU ME] IN BLOOD 16.4 g/dL 12.8 - 17 09/07 Specimen Type: BLOOD No comment entered. Ordering Provider: ROLDAN RHODES Report Released Date/Time: Sep 06, 2024 01:20 PM Reporting Lab: [place] [facility]ENTERCHUSETS [address] [address] Performing Lab: [facility]OSPITALRBRYAN [facility] HOSPITALTRN [facility]ENTERUSETS [address] [address] [place] CBC AND DIFF (AUTO) HEMATOCRIT [VOLUME FRACTION] OF BLOOD BY AUTOMATED COUNT 48.6 39.2 - 50.4 09/07 Specimen Type: BLOOD No comment entered. Ordering Provider: ROLDAN RHODES Report Released Date/Time: Sep 06, 2024 01:20 PM Reporting Lab: [facility]RL W[facility]N [facility]ENTERUSETS [address] [address] Performing Lab: [facility]ITALRBRYAN [facility]OSPITALTRN [facility]ENTERUSETS [address] [address] [place] CBC AND DIFF (AUTO) MCV [ENTITIC VOLUME] BY AUTOMATED COUNT 89.2 fL 82 - 99 09/07 Specimen Type: BLOOD No comment entered. Ordering Provider: ROLDAN RHODES Report Released Date/Time: Sep 06, 2024 01:20 PM Reporting Lab: [facility] W[facility]N [facility] CENTERUSETS [address] [address] Performing Lab: [facility]RL W[facility]N [facility]ENTERUSETS [address] [address] [place] CBC AND DIFF (AUTO) MCHC [MASS/VOLU ME] BY AUTOMATED COUNT 33.7 g/dL 30.8 - 35.1 09/07 Specimen Type: BLOOD No comment entered. Ordering Provider: ROLDAN RHODES Report Released Date/Time: Sep 06, 2024 01:20 PM Reporting Lab: [facility]PITALRBRYAN [facility] HOSPITALTRN [facility]ENTERUSE[address] [address] Performing Lab: [facility]OSPITALRBRYAN [facility] HOSPITALTRN MASSUSE[address] [address] [place] CBC AND DIFF (AUTO) PLATELETS [#/VOLUME] IN BLOOD BY AUTOMATED COUNT 128 10*3/uL 140 - 360 09/07 L Specimen Type: BLOOD No comment entered. Ordering Provider: ROLDAN RHODES Report Released Date/Time: Sep 06, 2024 01:20 PM Reporting Lab: [facility]PITALRBRYAN [facility] HOSPITALTRN [address] [address] Performing Lab: [facility]ITALRBRYAN [facility]OSPITALTRN [facility]ENTERUSE[address] [address] [place] CBC AND DIFF (AUTO) ERYTHROCYT E DISTRIBUTI ON WIDTH [RATIO] BY AUTOMATED COUNT 12.4 12.0 - 16.0 09/07 Specimen Type: BLOOD No comment entered. Ordering Provider: ROLDAN RHODES Report Released Date/Time: Sep 06, 2024 01:20 PM Reporting Lab: [facility]PITALRBRYAN [facility] HOSPITALTRN [place] [address] [address] Performing Lab: [facility]OSPITALRJACKSON MEDICAL CENTERN [facility] CENTERUSE[address] [address] [place] CBC AND DIFF (AUTO) MONOCYTES [#/VOLUME] IN BLOOD BY AUTOMATED COUNT 0.57 10*3/uL 0.30 - 1.10 09/07 Specimen Type: BLOOD No comment entered. Ordering Provider: ROLDAN RHODES Report Released Date/Time: Sep 06, 2024 01:20 PM Reporting Lab: [facility]ITALRBRYAN [facility]OSPITALTRN [place] [address] [address] Performing Lab: [facility]ITALRJACKSON MEDICAL CENTERN [facility] CENTERUSE[address] [address] [place] CBC AND DIFF (AUTO) MCH [ENTITIC MASS] BY AUTOMATED COUNT 30.1 pg 26.2 - 32.6 09/07 Specimen Type: BLOOD No comment entered. Ordering Provider: ROLDAN RHODES Report Released Date/Time: Sep 06, 2024 01:20 PM Reporting Lab: [facility]PITALRBRYAN [facility] HOSPITALTRN [address] [address] Performing Lab: [place] [facility] [address] [address] [place] CBC AND DIFF (AUTO) NEUTROPHIL S/100 LEUKOCYTES IN BLOOD BY AUTOMATED COUNT 48.8 43.7 - 75.8 09/07 Specimen Type: BLOOD No comment entered. Ordering Provider: ROLDAN RHODES Report Released Date/Time: Sep 06, 2024 01:20 PM Reporting Lab: [place] [facility] [place] [address] [address] Performing Lab: [place] [facility] [place] [address] [address] [place] CBC AND DIFF (AUTO) LYMPHOCYTE S/100 LEUKOCYTES IN BLOOD BY AUTOMATED COUNT 38.3 14.0 - 42.3 09/07 Specimen Type: BLOOD No comment entered. Ordering Provider: ROLDAN RHODES Report Released Date/Time: Sep 06, 2024 01:20 PM Reporting Lab: [place] [facility] [place] [address] [address] Performing Lab: [place] [facility] [place] [address] [address] [place] CBC AND DIFF (AUTO) MONOCYTES/ 100 LEUKOCYTES IN BLOOD BY AUTOMATED COUNT 10.5 5.1 - 13.7 09/07 Specimen Type: BLOOD No comment entered. Ordering Provider: ROLDAN RHODES Report Released Date/Time: Sep 06, 2024 01:20 PM Reporting Lab: [place] [facility] [place] [address] [address] Performing Lab: [place] [facility] [place] [address] [address] [place] CBC AND DIFF (AUTO) EOSINOPHIL S/100 LEUKOCYTES IN BLOOD BY AUTOMATED COUNT 1.3 0.4 - 6.8 09/07 Specimen Type: BLOOD No comment entered. Ordering Provider: ROLDAN RHODES Report Released Date/Time: Sep 06, 2024 01:20 PM Reporting Lab: [place] [facility]ENTERCHUSETS [address] [address] Performing Lab: [place] [facility] [place] [facility] [address] [address] [place] CBC AND DIFF (AUTO) BASOPHILS/ 100 LEUKOCYTES IN BLOOD BY AUTOMATED COUNT 0.4 0.1 - 2.0 09/07 Specimen Type: BLOOD No comment entered. Ordering Provider: ROLDAN RHODES Report Released Date/Time: Sep 06, 2024 01:20 PM Reporting Lab: [place] [facility]ENTERUSETS [address] [address] Performing Lab: [place] [facility]ENTERCHUSETS [address] [address] [place] CBC AND DIFF (AUTO) NEUTROPHIL S [#/VOLUME] IN BLOOD BY AUTOMATED COUNT 2.66 10*3/uL 2.20 - 7.60 09/07 Specimen Type: BLOOD No comment entered. Ordering Provider: ROLDAN RHODES Report Released Date/Time: Sep 06, 2024 01:20 PM Reporting Lab: [place] [facility]ENTERUSETS [address] [address] Performing Lab: [place] [facility]ENTERUSETS [address] [address] [place] CBC AND DIFF (AUTO) LYMPHOCYTE S [#/VOLUME] IN BLOOD BY AUTOMATED COUNT 2.09 10*3/uL 1.00 - 3.20 09/07 Specimen Type: BLOOD No comment entered. Ordering Provider: ROLDAN RHODES Report Released Date/Time: Sep 06, 2024 01:20 PM Reporting Lab: [place] [facility]ENTERCHUSETS [address] [address] Performing Lab: [place] [facility]ENTERUSETS [address] [address] [place] CBC AND DIFF (AUTO) EOSINOPHIL S [#/VOLUME] IN BLOOD BY AUTOMATED COUNT 0.07 10*3/uL 0.03 - 0.44 09/07 Specimen Type: BLOOD No comment entered. Ordering Provider: ROLDAN RHODES Report Released Date/Time: Sep 06, 2024 01:20 PM Reporting Lab: [place] [facility]ENTERUSETS [address] [address] Performing Lab: [facility]ITALRL [facility]ERN [facility] CENTERUSE[address] [address] [place] CBC AND DIFF (AUTO) BASOPHILS [#/VOLUME] IN BLOOD BY AUTOMATED COUNT 0.02 10*3/uL 0.01 - 0.13 09/07 Specimen Type: BLOOD No comment entered. Ordering Provider: ROLDAN RHODES Report Released Date/Time: Sep 06, 2024 01:20 PM Reporting Lab: [facility]ITALRL WSTRN [facility]ENTERUSETS [address] [address] Performing Lab: [facility]PITALRJACKSON MEDICAL CENTERN [address] [address] [place] CBC AND DIFF (AUTO) IMMATURE GRANULOCYT ES/100 LEUKOCYTES IN BLOOD BY AUTOMATED COUNT 0.7 0.0 - 0.7 09/07 Specimen Type: BLOOD No comment entered. Ordering Provider: ROLDAN RHODES Report Released Date/Time: Sep 06, 2024 01:20 PM Reporting Lab: [facility]ITALRL TRN [facility] CENTERUSE[address] [address] Performing Lab: [facility]PITALRJACKSON MEDICAL CENTERN [address] [address] [place] CBC AND DIFF (AUTO) IMMATURE GRANULOCYT ES [#/VOLUME] IN BLOOD 0.04 10*3/uL 0.00 - 0.06 09/07 Specimen Type: BLOOD No comment entered. Ordering Provider: ROLDAN RHODES Report Released Date/Time: Sep 06, 2024 01:20 PM Reporting Lab: [facility]ITALRL TRN [address] [address] Performing Lab: [facility]N [address] [address] [place] CBC AND DIFF (AUTO) NRBC % 0.0 0.0 - 0.0 09/07 Specimen Type: BLOOD No comment entered. Ordering Provider: ROLDAN RHODES Report Released Date/Time: Sep 06, 2024 01:20 PM Reporting Lab: [facility]ITALRJACKSON [facility]ICAL CENTERN [address] [address] Performing Lab: [facility]OS[facility]ITALRL TRN [facility] CENTERUSETS [facility] [address] [address] [place] CBC AND DIFF (AUTO) NRBC, ABS 0.00 10*3/uL 0.00 - 0.00 09/07 Specimen Type: BLOOD No comment entered. Ordering Provider: ROLDAN RHODES Report Released Date/Time: Sep 06, 2024 01:20 PM Reporting Lab: [facility]ITALRL TRN [facility] CENTERUSE[address] [address] Performing Lab: [facility]ITALRL TRN [facility] CENTERUSE[address] [address] [place] LIPID PANEL FASTING CHOLESTERO L [MASS/VOLU ME] IN SERUM OR PLASMA 126 mg/dL 03/08 Specimen Type: SERUM No comment entered. Ordering Provider: SAE MARES Report Released Date/Time: Nov 28, 2023 09:56 AM Reporting Lab: [facility]OSPITALRBRYAN [facility] HOSPITALTRN [facility]ENTERUSE[address] [address] Performing Lab: [facility]ITALRL TRN [facility]ENTERUSE[address] [address] [place] LIPID PANEL FASTING TRIGLYCERI DE [MASS/VOLU ME] IN SERUM OR PLASMA 197 mg/dL 0 - 150 03/08 H Specimen Type: SERUM No comment entered. Ordering Provider: SAE MARES Report Released Date/Time: Nov 28, 2023 09:56 AM Reporting Lab: [facility]OSPITALRBRYAN [facility] HOSPITALTRN [facility]ENTERUSE[address] [address] Performing Lab: [facility]OSPITALRBRYAN [facility] HOSPITALTRN [facility]ENTERUSE[address] [address] [place] LIPID PANEL FASTING CHOLESTERO L IN LDL [MASS/VOLU ME] IN SERUM OR PLASMA BY CALCULATIO N 57 mg/dL 0 - 129 03/08 Specimen Type: SERUM No comment entered. Ordering Provider: SAE MARES Report Released Date/Time: Nov 28, 2023 09:56 AM Reporting Lab: [facility]OS[facility]ITALRL TRN [facility] CENTERUSE[address] [address] Performing Lab: [facility]ITALRL TRN [facility] CENTERUSETS [facility] [address] [address] [place] LIPID PANEL FASTING CHOLESTERO L.TOTAL/CH OLESTEROL IN HDL [MASS RATIO] IN SERUM OR PLASMA 4.2 03/08 Specimen Type: SERUM No comment entered. Ordering Provider: SAE MARES Report Released Date/Time: Nov 28, 2023 09:56 AM Reporting Lab: [facility]OSPITALRBRYAN [facility] HOSPITALTRN [facility]GUTHRI[facility] [address] [address] Performing Lab: [facility]ITALRBRYAN [facility] HOSPITALTRN [facility]ENTERUSE[address] [address] [place] LIPID PANEL FASTING CHOLESTERO L IN HDL [MASS/VOLU ME] IN SERUM OR PLASMA 30 mg/dL 40 - 60 03/08 L Specimen Type: SERUM No comment entered. Ordering Provider: SAE MARES Report Released Date/Time: Nov 28, 2023 09:56 AM Reporting Lab: [facility]OSPITALRBRYAN [facility] HOSPITALTRN [facility] CENTERUSETS [facility] [address] [address] Performing Lab: [facility]OSPITALRJACKSON MEDICAL CENTERN [facility]ENTERUSE[address] [address] [facility]ITALE Vital Signs Combined list of inpatient and outpatient Vital Signs from Department of Defense and Veterans Affairs, ranging from 12 months to all on record, depending upon the facility. Vital Sign Value Date Comments Source SYSTOLIC BLOOD PRESSURE 139 09/16/2024 08:36:44 [place] DIASTOLIC BLOOD PRESSURE 86 09/16/2024 08:36:44 [place] PULSE OXIMETRY 95 09/16/2024 08:36:44 S [facility] WEIGHT 274 09/16/2024 08:36:44 [place] [facility] BMI 33 kg/m2 09/16/2024 08:36:44 [place] [facility] HEIGHT 77 09/16/2024 08:36:44 [place] [facility] TEMPERATURE 97.9 09/16/2024 08:36:[facility] PULSE 91 09/16/2024 08:36:44 [place] [facility] RESPIRATION 19 09/16/2024 08:36:44 [facility] SYSTOLIC BLOOD PRESSURE 147 08/19/2024 09:25:36 [place] DIASTOLIC BLOOD PRESSURE 92 08/19/2024 09:25:36 [place] PULSE OXIMETRY 97 08/19/2024 09:25:36 [place] PAIN 9 08/19/2024 09:25:36 [place] TEMPERATURE 97.5 08/19/2024 09:25:36 [place] PULSE 75 08/19/2024 09:25:36 [place] RESPIRATION 18 08/19/2024 09:25:36 [place] SYSTOLIC BLOOD PRESSURE 170 07/06/2024 08:48:14 [place] DIASTOLIC BLOOD PRESSURE 98 07/06/2024 08:48:14 [place] PULSE OXIMETRY 07 07/06/2024 08:48:14 [place] PAIN 10 07/06/2024 08:48:14 [place] TEMPERATURE 98.1 07/06/2024 08:48:14 [place] PULSE 65 07/06/2024 08:48:14 [place] RESPIRATION 20 07/06/2024 08:48:14 [place] SYSTOLIC BLOOD PRESSURE 125 04/19/2024 15:04:06 [place] DIASTOLIC BLOOD PRESSURE 79 04/19/2024 15:04:06 [place] PULSE OXIMETRY 94 04/19/2024 15:04:06 [place] WEIGHT 273 04/19/2024 15:04:06 [place] BMI 32 kg/m2 04/19/2024 15:04:06 [place] PULSE 90 04/19/2024 15:04:06 [place] SYSTOLIC BLOOD PRESSURE 146 03/08/2024 09:14:37 [place] DIASTOLIC BLOOD PRESSURE 97 03/08/2024 09:14:37 [place] PULSE OXIMETRY 96 03/08/2024 09:14:37 [place] [...] ADM Date DC Date Status Disposition Source [place] Outpatient Encounter [id number] 05/[place] [facility] En[facility] [id number] 06[facility] [id number] 06/02 [facility] En[facility] [id number] 06/05 [facility] [place]/OP EST FEBRUARY X REQ PHY/QHP [id number] Diagnos is: ICD-10- CM R11.0 Nausea MARYLU COELLO 06/05 [facility] [place] [facility] En[facility] [id number] 06/05 [facility] En[facility] [id number] 06/12 [facility] [id number] 06/12 [facility] [id number] 06/17 [facility] [id number] 06/25 [facility] En[facility] [id number] 06/25 [facility] [place] [id number] Diagnos is: ICD-10- CM Z71.3 Dietary tariff counsel ing and surveil EDMAR Watson 06/25 [facility] MTMS BY PHARM ADDL 15 MIN [id number] Diagnos is: ICD-10- CM E11.9 Type 2 diabete s mellitu s without complic ations LEANDER BECK MARJORIE A 06/26 [facility] [place] [facility] Outpatient Encounter [id number] 07/01 [facility] Outpatient Encounter [id number] 07/04 [facility] Outpatient Encounter [id number] 07/04 [facility] Outpatient Encounter [id number] 07/05 [facility] Outpatient Encounter [id number] 07/18 [facility] OFFICE O/P EST MOD 30-39 MIN [id number] Diagnos is: ICD-10- CM M54.50 Low back pain, unspeci fied STELEA,CAR MEN F [facility] [id number] Diagnos is: ICD-10- CM M54.51 Vertebr ogenic low back pain MASOODHOLA RECIO TJYASHIRA 08/01 [facility] [id number] Diagnos is: ICD-10- CM M54.51 Vertebr ogenic low back pain HOLA BURROWS 08/05 [place] [facility] Out[facility] Encounter [id number] 08/08 [facility] [place] THERAPEUTI C EXERCISES [id number] Diagnos is: ICD-10- CM M54.51 Vertebr ogenic low back pain LANGSTON SALINA BATSHEVA 08/19 [place] [facility] Encounter [id number] 08/22 [facility] [place] Outpatient Encounter [id number] 08/27 [place] OFF/OP EST FEBRUARY X REQ PHY/QHP [id number] Diagnos is: ICD-10- CM I10 Essenti al (primar y) hyperte nsion ROSA MARIA WELCH AJAY 09/16 [place] [facility] Outpatient Encounter [id number] 09/26 [facility] Outpatient Encounter [id number] 10/07 [facility] [place] MTMS BY PHARM ADDL 15 MIN [id number] Diagnos is: ICD-10- CM E11.9 Type 2 diabete s mellitu s without complic ations LEANDER BECK 10/17 [place] [facility] Outpatient Encounter [id number] 10/21 [facility] [place] PRO PHONE CALL 11-20 MIN [id number] Diagnos is: ICD-10- CM E11.9 Type 2 diabete s mellitu s without complic ations LEANDER BECK A 11/03 [place] PRO PHONE CALL 21-30 MIN [id number] Diagnos is: ICD-10- CM E11.9 Type 2 diabete s mellitu s without complic ations LEANDER BECK A 11/10 [place] [facility] Outpatient Encounter [id number] 11/13 [facility] [place] MTMS BY PHARM ADDL 15 MIN [id number] Diagnos is: ICD-10- CM E11.9 Type 2 diabete s mellitu s without complic ations VISHNU,CAR DAKSHA F 11/27 [facility] [place] OFFICE O/P EST MOD 30 MIN [id number] Diagnos is: ICD-10- CM E78.5 Hyperli pidemia , unspeci fied VISHNU,CAR DAKSHA F 11/28 [facility] [place] OFF/OP EST FEBRUARY X REQ PHY/QHP [id number] Diagnos is: ICD-10- CM M54.50 Low back pain, unspeci fied OUMOU,ER IC K 12/11 [place] [facility] Outpatient Encounter [id number] 12/11 [facility] [place] OFF[place] O/P EST MOD 30 MIN [id number] Diagnos is: ICD-10- CM M54.50 Low back pain, unspeci fied MEAGAN,KE NDRA C 12/11 [place] [facility] Outpatient Encounter [id number] 12/14 [facility] Out[facility] Encounter [id number] 12/21 [facility] Out[facility] Encounter [id number] 12/24 [facility] Out[facility] Encounter [id number] 12/24 [facility] Out[facility] Encounter [id number] 12/24 [facility] [place] O/P EST MOD 30 MIN [id number] Diagnos is: ICD-10- CM M54.50 Low back pain, unspeci fied STELEA,CAR MEN F 12/28 [place] [facility] Outpatient Encounter [id number] 12/28 [facility] Out[facility] Encounter [id number] 02/08 [facility] OFF/OP CONSLTJ NEW/EST HI 55 [id number] Diagnos is: ICD-10- CM M54.50 Low back pain, unspeci fied KUPFERSCHM ID,SABA B 02/09 [facility] Out[facility] Encounter [id number] 03/04 [facility] [place] O/P EST MOD 30 MIN [id number] [id number] Diagnos is: ICD-10- CM R10.9 Unspeci fied abdomin al pain STELEA,CAR MEN F 03/08 [place] [facility] Outpatient Encounter [id number] 03/10 [facility] Out[facility] Encounter [id number] 03/15 [facility] Out[facility] Encounter [id number] 03/15 [facility] Out[facility] Encounter [id number] 03/19 [facility] OFFICE O/P EST HI 40 MIN [id number] Diagnos is: ICD-10- CM M19.91 Primary osteoar thritis , unspeci fied site KUPFERSCHM ID,SABA B 03/22 [facility] Out[facility] Encounter [id number] 04/05 [facility] Out[facility] Encounter [id number] 04/06 [facility] OFFICE O/P EST HI 40 MIN [id number] Diagnos is: ICD-10- CM M19.91 Primary osteoar thritis , unspeci fied site KUPFERSCHM ID,SABA B 04/06 [facility] Outpatient Encounter [id number] 04/12 [facility] [place] MTMS BY PHARM ADDL 15 MIN [id number] Diagnos is: ICD-10- CM E11.9 Type 2 diabete s mellitu s without complic ations LEANDER BECK 04/14 [place] [facility] Outpatient Encounter [id number] [facility] Outpatient Encounter [id number] [facility] OFFICE O/P EST MOD 30 MIN [id number] Diagnos is: ICD-10- CM M25.561 Pain in right knee STELEA,CAR MEN F 04/19 [place] [facility] Out[facility] Encounter [id number] [facility] COMPRE OPH EXAM EST PT 1/> [id number] Diagnos is: ICD-10- CM H34.811 0 Central retinal vein occls, right eye, with macular edema WELSH,LACE Y J 04/28 [facility] FIT SPECTACLES MULTIFOCAL [id number] Diagnos is: ICD-10- CM Z46.0 Encount er for fit/adj st of spectac les and contact lenses WELSH,LACE Y J 04/28 [facility] Out[facility] Encounter [id number] [facility] Out[facility] Encounter [id number] 05/13 [facility] Outpatient Encounter [id number] 05/20 [facility] OFFICE O/P EST MOD 30 MIN [id number] 1. Diagnos is: ICD-10- CM M25.561 Pain in right knee KUPFERSCHM ID,SABA B 05/21 [facility] Outpatient Encounter [id number] [facility] Out[facility] Encounter [id number] 1.05/25 [facility] Outpatient Encounter [id number] 1.05/31 [facility] [place] MTMS BY PHARM ADDL 15 MIN [id number] Diagnos is: ICD-10- CM E11.9 Type 2 diabete s mellitu s without complic ations RUDI ARAGON 06/10 [place] [facility] Outpatient Encounter [id number] 1.06/10 [facility] [place] PT EVAL MOD COMPLEX 30 MIN [id number] 1BY. 57 Diagnos is: ICD-10- CM M25.569 Pain in unspeci fied knee DANNEN,HOLA HAEL 06/23 [place] THERAPEUTI C EXERCISES [id number] Diagnos is: ICD-10- CM M25.569 Pain in unspeci fied knee DANNEN,HOLA HAEL 06/28 [place] [facility] Outpatient Encounter [id number] 07/01 [facility] Out[facility] Encounter [id number] [facility] [place] OFF/OP EST FEBRUARY X REQ PHY/QHP [id number] Diagnos is: ICD-10- CM G50.1 Atypica l facial pain OUMOU,ER IC K 07/06 [place] [facility] Outpatient Encounter [id number] 1.07/06 [facility] [place] THERAPEUTI [place] EXERCISES [id number] Diagnos is: ICD-10- CM M25.569 Pain in unspeci fied knee DANNOHEMIN,HOLA HAEL 07/13 [place] [facility] Outpatient Encounter [id number] 1.07/13 [facility] [place] PRO PHONE CALL 21-30 MIN [id number] 1BY. 00 Diagnos is: ICD-10- CM Z71.89 Other specifi ed tariff counsel ing KENNETH WASHINGTON 07/15 [place] [facility] Outpatient Encounter [id number] 07/28 [facility] Out[facility] Encounter [id number] 1.08/04 [facility] [place] MTMS BY PHARM ADDL 15 MIN [id number] 1BY. 56 Diagnos is: ICD-10- CM E11.9 Type 2 diabete s mellitu s without complic ations LEANDER BECK 08/05 [place] [facility] Outpatient Encounter [id number] 1.08/05 [facility] Out[facility] Encounter [id number] 1.08/05 [facility] Out[facility] Encounter [id number] 1.08/06 [facility] [place] OFF/OP EST FEBRUARY X REQ PHY/QHP [id number] Diagnos is: ICD-10- CM M54.50 Low back pain, unspeci fied OUMOU,ER IC K 08/19 [place] [facility] Outpatient Encounter [id number] 1.08/19 [facility] Outpatient Encounter [id number] 1.08/20 [facility] Outpatient Encounter [id number] 08/24 [facility] [place] THERAPEUTI C EXERCISES [id number] 1BY. Diagnos is: ICD-10- CM M25.569 Pain in unspeci fied knee DANNEN,HOLA HAEL 08/24 [place] [facility] Outpatient Encounter [id number] 1.08/26 [facility] OFFICE O/P EST HI 40 MIN [id number] 1. Diagnos is: ICD-10- CM M54.50 Low back pain, unspeci fied KUPFERSCHM ID,SABA B 08/27 [facility] Out[facility] Encounter [id number] 09/06 [facility] Outpatient Encounter [id number] 1.09/06 [facility] QNHP OL DIG ASSMT&MGMT 5-10 [id number] 1. Diagnos is: ICD-10- CM M25.561 Pain in right knee MIKE GARCIA S 09/08 [facility] OFFICE O/[place] HI 40 MIN [id number] Diagnos is: ICD-10- CM M15.9 Polyost eoarthr itis, unspeci fied RENATO RHODES C 09/16 [place] [facility] Outpatient Encounter [id number] RENATO RHODES NDRA C 09/16 [facility] Outpatient Encounter [id number] 1.09/23 [facility] Outpatient Encounter [id number] [place] [facility] QNHP OL DIG ASSMT&MGMT 5-10 [id number] 1. 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 15 MIN [id number] Diagnos is: ICD-10- CM E11.9 Type 2 diabete s mellitu s without complic ations LEANDER BECK A 10/04 [place] [facility] Outpatient Encounter [id number] 10/04 [facility] Outpatient Encounter [id number] 10/05 [facility] [place] OFF[place] O/P EST LOW 20 MIN [id number] Diagnos is: ICD-10- CM L60.3 Nail dystrop hy ROSS,CHARL ES F 10/15 [place] [facility] Outpatient Encounter [id number] 10/20 [facility] [place] MTMS BY PHARM ADDL 15 MIN [id number] Diagnos is: ICD-10- CM E11.9 Type 2 diabete s mellitu s without complic ations LEANDER BECK A 10/27 [place] [facility] Outpatient Encounter [id number] 11/03 [facility] Out[facility] Encounter [id number] 11/04 [facility] SYNCH [place]UDIO[place] 40 [id number] Diagnos is: ICD-10- CM M15.9 Polyost eoarthr itis, unspeci fied KUPFERSCHM ID,SABA B 11/04 [facility] Out[facility] Encounter [id number] 11/09 [facility] Outpatient Encounter [id number] 11/17 [facility] Outpatient Encounter [id number] 11/25 [facility] Outpatient Encounter [id number] 11/26 [facility] [place] MTMS BY PHARM EST 15 MIN [id number] Diagnos is: ICD-10- CM E11.9 Type 2 diabete s mellitu s without complic ations BECK,LEANDER Marx 11/30 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 Social History Type Response Date Comment Source Tobacco smoking status [facility] VA-TOBACCO FORMER USER 03/08/2024 [facility] History of tobacco use MI-TOBACCO QUIT 15 YRS OR MORE 03/08/2024 [place] History of tobacco use MI-TOBACCO QUIT 15 YRS OR MORE 03/11/2023 [facility] [place] [facility] History of tobacco use VA-TOBACCO FORMER USER 03/27/2022 [place] History of tobacco use VA-TOBACCO FORMER USER 12/27/2020 [facility] [place] [facility] History of tobacco use VA-TOBACCO FORMER USER 12/22/2018 [facility] History of tobacco use VA-TOBACCO FORMER USER 03/19/2018 [facility] History of tobacco use QUIT TOBACCO USE > 7 YEARS AGO 05/13/2017 quit 24 yrs ago [facility] History of tobacco use QUIT TOBACCO USE > 7 YEARS AGO 11/15/2015 States he last smoked 21 years ago [facility] History of tobacco use QUIT TOBACCO USE > 7 YEARS AGO 12/07/2009 [facility] Plan of Care List of future care activities from [facility] facilities. Additional future care activities may be listed in the Assessment and Plan section. Date/Time Care Activity Care Activity Detail Facili ty 11/30/2024 AMBULATORY - MEDICINE AM[facility] 12/03/2024 AMBULATORY - REHAB MEDICINE AMBULATORY - REHAB MEDICINE [facility] 12/29/2024 AMBULATORY - MEDICINE AM[facility]ATORY [facility] 01/11/2025 AMBULATORY - MEDICINE AMBULATORY - [facility]ICI [facility] 01/20/2025 AMBULATORY - MEDICINE AMBULATORY - MEDICI NE [facility] 02/04/2025 AMBULATORY - MEDICINE AMBULATORY - MEDICI [facility] 02/17/2025 AMBULATORY - NONE AMBULATORY - NONE [facility] 02[facility]17/2025 AMBULATORY - MEDICINE AMBULATORY - MEDICI NE [facility] 02/17/2025 AMBULATORY - MEDICINE AMBULATORY [facility]ICI [facility] [facility] 05/03/2025 AMBULATORY - MEDICINE AMBULATORY - MEDICI [facility] 11/18/2024 Procedure Order FIBROSCAN CP KALEIGH MENARD (OUTPT) Proc Visual Education Director's Choice [facility] Advance Directives List of completed, amended, or rescinded Advance Directives on record at [facility] facilities. An actual copy of the Directive is not included. Date Advance Directive Provider Source 05/23/2011 ADVANCE DIRECTIVE JUD BROOKS
--- OUTSIDE RECORDS SUMMARY | 2024-11-30 17:16 | XMS_ITS | Encounter Summary ---
Author Name [facility] [place] [facility] [place] Address [address] [place] [id number] Care Team Providers Care Director Field Services Name Role Phone CHANI RHODES Primary Care [...] to Policy Zayas [employer] D[employer]AL [employer]URANCE [facility] February 03, 2022 [id number] EMERITA BAUTISTA PATIENT [facility] MEDICAID MEDICAID MEDIC AID Oct 06, 2013 MEDICAI D [id number] EMERITA BAUTISTA PATIENT MEDICARE (WNR) MEDICARE (M) PART A Mar 06, 2015 PART A [id number] [phone] MEERITA BAUTISTA PATIENT MEDICARE (WNR) MEDICARE (M) PART B Mar 06, 2015 PART B [id number] EMERITA BAUTISTA PATIENT MEDICARE (WNR) MEDICARE (M) PART B Mar 06, 2015 PART B [id number] EMERITA BAUTISTA PATIENT MEDICARE (WNR) MEDICARE (M) PART A Mar 06, 2015 PART A [id number] EMERITA BAUTISTA PATIENT MEDICARE (WNR) MEDICARE (M) PART B Mar 06, 2015 PART B [id number] EMERITA BAUTISTA PATIENT MEDICARE (WNR) MEDICARE (M) PART A Mar 06, 2015 PART A [id number] EMERITA BAUTISTA PATIENT Selected Encounter This section includes the information on record at [place] for the Encounter. Date/Time Encounter Type Encounter Description Reason Pro vider Source Nov 17, 2024 03:39 PM Outpatient Encounter TELEPHONE/MEDICINE IHE Encounter Template Text not used by [...] 30, 2024 12:00 PM AMBULATORY [place] [facility] [place] [facility] Dec 03, 2024 10:30 AM AMBULATORY - REHAB [facility] Dec 29, 2024 10:45 AM AMBUL[place]ORY [place] [facility] [place] [facility] Jan 11, 2025 12:00 PM AMBULATORY - [place]ICINE [place] [facility] [place] [facility] Jan 20, 2025 10:00 AM AMBULATORY - MEDICINE [facility] February 04, 2025 08:00 AM [facility] February 17, 2025 11:00 AM AMBULATORY - NONE [place] [facility] [place] [facility] February 17, 2025 11:00 AM AM[facility]ORY [place]IC[place] [place] [facility] February 17, 2025 11:05 AM AMBULATORY - MEDICINE [facility] [place] [facility] May 03, 2025 10:00 AM AMBULATORY - [place]ICINE [place] [facility] [place] [facility] Active, Pending, and Scheduled Orders This section includes a listing of several types of active, pending, and scheduled orders, including clinic medications orders, diagnostic test orders, procedure orders and consult orders; where the start date of the order is 45 days before the date of the Encounter or 45 days after the date of theEncounter. The data comes from all [place] treatment facilities. Test Date/Time Test Type Test Details Facility Name Nov 18, 2024 09:52 AM Procedure Order FIBROSCAN CP [facility] (OUTPT) Proc Peanut Roaster's Choice [facility] Advance Directives: All historical and current Section [...]
== END 2024-11-30 14:28 | disposition home or self-care (01) ==
PROVIDERS: Visit Provider Orthopaedic Surgery
DX: M25.562 Pain in left knee (principal)
CPT/HCPCS: 99024

== ENCOUNTER → 2024-11-30 13:50 | Outpatient (BNVA) | payer OTHER, SELFPAY | PROVIDERS: Visit Provider Orthopaedic Surgery | DX: M25.562 Pain in left knee (principal); M54.50 Low back pain, unspecified; Z47.89 Encounter for other orthopedic aftercare; Z98.890 Other specified postprocedural states | CPT/HCPCS: 99212 ==

== ENCOUNTER 2025-06-16 13:15 | Outpatient (AMB) | payer OTHER, SELFPAY ==
--- NOTE | 2025-06-16 13:17 | MHC.OFFVIS ---
Vital Signs 06/16/25 13:26 Height 6 ft 5 in Weight 263 lb BMI 31.2 Intake Visit Reasons: Left knee pain Intake Note: Stephane is a 59 year old man who presents with complaints of left knee pain. The patient did undergo left knee arthroscopic surgery on 11/15/2024. He got temporary relief from that procedure. He has failed the last 3 months of conservative treatment which has included Tylenol, anti-inflammatory medicines, physical therapy exercises and a home exercise program. He has had cortisone injections in the past. The most recent cortisone injection gave him no relief. He has also had viscosupplementation injections which gave him fairly good relief. At this point his left knee pain is interfering with his activities of daily living in his ability to sleep well through the night. He has undergone right total knee replacement surgery in the past. He wishes to hold off on left total knee replacement surgery if at all possible. Allergies No Known Allergies Allergy (Verified 06/16/25 13:26) Medication List - Last Reviewed 06/16/25 by PIERRE Guerrero acetaminophen 1,000 mg PO TID PRN acetaminophen 650 mg PO TID PRN atorvastatin 80 mg PO BEDTIME buprenorphine 10 mcg/hour 1 patch transdermal Q5D buprenorphine 5 mcg/hour 1 patch transdermal Q5D carboxymethylcellulose sodium 0.5% 1 drp ophthalmic (eye) QID cholecalciferol (vitamin D3) 50 mcg PO DAILY cyclobenzaprine 10 mg PO BID empagliflozin 25 mg PO DAILY gabapentin 600 mg PO TID hydrocodone-acetaminophen 5-325 mg 1 tab PO BID PRN insulin aspart U-100 (Novolog FlexPen U-100 Insulin aspart) 27 units subcut TID insulin glargine 44 units subcut BID lidocaine 5% 1 patch topical DAILY lisinopril 5 mg PO DAILY semaglutide 0.5 mg subcut QWEEK [facility] Medical History BMI 32.0-32.9,adult HTN (hypertension) Diabetes Surgical History History of surgery History of penile implant Hx of appendectomy Hx of cholecystectomy History of foot surgery Hx of arthroscopy of left knee History of total right knee replacement Social History Are you a primary hearing care professional to a significant other at home: No Do you presently have visiting nurse or other home services: No Patient Tobacco Use Status: Former Tobacco user Tobacco use type: Cigarette Physical Exam Vital Signs: BMI result Body Mass Index 31.2 Const Other: Well-nourished well-developed very friendly male awake alert and oriented x3 in no acute distress Extrem Other: Left knee examination shows a minimal effusion, palpable crepitus with range of motion, pain with range motion, no instability Assessment & Plan Assessment & Plan (1) Left knee pain: Code(s): M25.562 - Pain in left knee Category: Medical (2) Osteoarthritis of left knee: Code(s): M17.12 - Unilateral primary osteoarthritis, left knee Category: Medical Plan Mr. Rivera presents with left knee pain due to osteoarthritis. I had a lengthy discussion with the patient regarding the treatment options. He wishes to hold off on left total knee replacement surgery for as long as possible. I agree with this plan. I will see if the patient's insurance company will cover a viscosupplementation injection, such as Durolane, for his left knee. I will see him back once the injection is available. He will follow up as scheduled. I spent 22 minutes in reviewing the patient's records and imaging studies, seeing the patient and documenting in the medical record. Coding Level of Care Code Est Pt Level 3 (67331) Complex EM visit Add On G2211 Diagnoses Left knee pain M25.562 Osteoarthritis of left knee M17.12
[2025-06-16 13:26] VITALS: BMI 31.2
== END 2025-06-16 13:37 | disposition home or self-care (01) ==
LOC: HO.HOS 13:15
PROVIDERS: Visit Provider Orthopaedic Surgery
DX: M25.562 Pain in left knee (principal); M17.12 Unilateral primary osteoarthritis, left knee
CPT/HCPCS: 99213; G2211

== ENCOUNTER → 2025-06-16 13:15 | Outpatient (BNVA) | payer OTHER, SELFPAY | PROVIDERS: Visit Provider Orthopaedic Surgery | DX: M25.562 Pain in left knee (principal); M17.12 Unilateral primary osteoarthritis, left knee | CPT/HCPCS: 99212 ==